=== PATIENT | female | born 1940 | race Caucasian/White ===

== ENCOUNTER → 2017-12-19 09:27 | Outpatient (CLI) | payer MEDICARE, MEDICAID, SELFPAY ==
--- NOTE | 2017-12-19 09:32 | FL_ITS ---
EXAM: Barium swallow/esophagram. INDICATION: Dysphasia ORDERING PHYSICIAN: Dg Kang PATIENT AGE: 77 years COMPARISON: None TECHNIQUE: In the upright position the patient was observed to swallow barium in both the AP and lateral view. The cervical esophagus was examined under fluoroscopy with images obtained. The patient was then placed prone in the right anterior oblique position and was observed to swallow barium with Valsalva technique . FLUOROSCOPY TIME: Fluoroscopy time FINDINGS: There was no evidence of aspiration. There was normal peristalsis. No filling defects or mucosal abnormalities. No masses or strictures. There is posterior indentation upon the cervical esophagus from prominent bridging osteophytes in the lower cervical spine at the C6-C7 level. No evidence of hiatal hernia. IMPRESSION: 1. Posterior dilatation upon the esophagus in the cervical region from overlying cervical osteophytes. 2. Otherwise negative barium swallow
== END ==
PROVIDERS: Family Provider Internal Medicine; PCP Internal Medicine; Visit Provider Internal Medicine
DX: R13.10 Dysphagia, unspecified (principal)
CPT/HCPCS: 74220

== ENCOUNTER → 2018-03-21 08:39 | Outpatient (CLI) | payer MEDICARE, MEDICAID, SELFPAY | PROVIDERS: Visit Provider Internal Medicine | DX: R19.7 Diarrhea, unspecified (principal) | CPT/HCPCS: 87177; 87205 ==

== ENCOUNTER 2018-07-18 12:24 | Outpatient (CLI) | payer MEDICARE, MEDICAID, SELFPAY ==
[2018-07-18] VITALS (7 sets, daily range): BP systolic 145–168; BP diastolic 74–88; PULSE 66–78; RESP 20; TEMP 36.9; O2SAT 95–96; BMI 26.6
[2018-07-18 13:06] LABS: Basophils # 0.1 K/mm3 (0-0.2); Basophils % 1.2 % (0.1-2.0); Eosinophils # 0.1 K/mm3 (0.0-0.4); Eosinophils % 1.2 % (0.1-12.0); Hematocrit 38.6 % (37.0-47.0); Hemoglobin 12.5 g/dL (12.2-16.2); Lymphocytes % 13.3 K/mm3 (10-50); Mean Corpuscular HGB Conc 32.5 g/dL (31.8-35.4); Mean Corpuscular Hemoglobin 29.2 pg (27.0-31.2); Mean Corpuscular Volume 90.1 fl (81-99); Mean Platelet Volume 7.4 fl (7.4-10.4); Monocytes # 0.4 K/mm3 (0.1-1.0); Monocytes % 5.2 % (1.7-9.3); Neutrophils # 6.1 K/mm3 (1.8-7.8); Neutrophils % 78.9 % (37.0-80.0); Platelet Count 250 K/mm3 (142-424); Red Blood Count 4.29 M/mm3 (4.20-5.40); Red Cell Distribution Width 13.5 % (11.5-17.5); White Blood Count 7.7 K/mm3 (4.8-10.8)
[2018-07-18 13:11] LABS: Blood Urea Nitrogen 13 mg/dL (7-18); Calcium 9.2 mg/dL (8.5-10.1); Carbon Dioxide 27 mmol/L (21.0-32.0); Chloride 104 mmol/L (98-107); Creatinine Clearance Estimated 51 mL/min (0-300); Creatinine,Serum 0.78 mg/dL (0.55-1.02); Estimated Glomerular Filt Rate 71 ml/min (>60); GFR (African American) 86 ML/MIN (>60); Glucose 99 mg/dL (74-106); Sodium 140 mmol/L (136-145)
== END 2018-07-18 16:15 | disposition home or self-care (01) ==
LOC: INF 12:26
PROVIDERS: PCP Internal Medicine; Visit Provider Internal Medicine
DX: E86.0 Dehydration (principal); K52.9 Noninfective gastroenteritis and colitis, unspecified
CPT/HCPCS: 80048; 85025; 96360; 96361

== ENCOUNTER → 2018-09-01 16:23 | Outpatient (CLI) | payer MEDICARE, MEDICAID, SELFPAY ==
[2018-09-01 16:48] LABS: Basophils # 0.1 K/mm3 (0-0.2); Eosinophils # 0.1 K/mm3 (0.0-0.4); Eosinophils % 1.1 % (0.1-12.0); Hematocrit 40.1 % (37.0-47.0); Hemoglobin 13.1 g/dL (12.2-16.2); Lymphocytes # 1.4 K/mm3 (0.7-4.5); Lymphocytes % 12.2 % (10-50); Mean Corpuscular HGB Conc 32.6 g/dL (31.8-35.4); Mean Corpuscular Hemoglobin 29.8 pg (27.0-31.2); Mean Corpuscular Volume 91.2 fl (81-99); Mean Platelet Volume 7.7 fl (7.4-10.4); Monocytes # 0.5 K/mm3 (0.1-1.0); Monocytes % 4.1 % (1.7-9.3); Neutrophils # 9.3 K/mm3 (1.8-7.8); Neutrophils % 81.5 % (37.0-80.0); Platelet Count 259 K/mm3 (142-424); Red Cell Distribution Width 14.1 % (11.5-17.5); White Blood Count 11.4 K/mm3 (4.8-10.8)
[2018-09-01 17:44] LABS: Alanine Aminotransferase 32 U/L (12-78); Albumin Level 4.2 gm/dL (3.4-5.0); Albumin/Globulin Ratio 1.4 (1.1-1.8); Alkaline Phosphatase 164 U/L (46-116); Anion Gap 17.5 mEq/L (5-15); Aspartate Amino Transferase 22 U/L (15-37); Bilirubin,Total 0.2 mg/dL (0.2-1.0); Blood Urea Nitrogen 14 mg/dL (7-18); Calcium 9.6 mg/dL (8.5-10.1); Carbon Dioxide 28 mmol/L (21.0-32.0); Chloride 101 mmol/L (98-107); Estimated Glomerular Filt Rate 60 ml/min (>60); GFR (African American) 73 ML/MIN (>60); Globulin 3.1 gm/dl (1.3-3.2); Glucose 99 mg/dL (74-106); Potassium 5.5 mmoL/L (3.5-5.1); Sodium 141 mmol/L (136-145); Total Protein,Serum 7.3 gm/dL (6.4-8.2)
[2018-09-03 10:38] LABS: Vitamin B12 >2000 pg/mL (232-1245)
== END ==
PROVIDERS: Visit Provider Specialist
DX: R25.1 Tremor, unspecified (principal); R29.6 Repeated falls; R51 Headache
CPT/HCPCS: 36415; 80053; 82607; 85025

== ENCOUNTER → 2018-10-09 09:22 | Outpatient (POV) | payer MEDICARE, MEDICAID, SELFPAY | PROVIDERS: Visit Provider Podiatrist | DX: Z00.00 Encounter for general adult medical examination without abnormal findings (principal) ==

== ENCOUNTER → 2018-11-13 08:52 | Outpatient (POV) | payer MEDICARE, MEDICAID, SELFPAY | PROVIDERS: Visit Provider Podiatrist | DX: Z00.00 Encounter for general adult medical examination without abnormal findings (principal) ==

== ENCOUNTER → 2019-01-22 08:54 | Outpatient (POV) | payer MEDICARE, MEDICAID, SELFPAY | PROVIDERS: Visit Provider Podiatrist | DX: Z00.00 Encounter for general adult medical examination without abnormal findings (principal) ==

== ENCOUNTER → 2019-02-21 15:51 | Outpatient (CLI) | payer MEDICARE, MEDICAID, SELFPAY ==
[2019-02-27 06:18] LABS: C difficile Toxins AB, EIA Negative (Negative)
[2019-02-27 20:41] LABS: Fats, Neutral Normal (.); Fats, Total Normal (.)
== END ==
PROVIDERS: PCP Internal Medicine; Visit Provider Internal Medicine
DX: K52.9 Noninfective gastroenteritis and colitis, unspecified (principal)
CPT/HCPCS: 82705; 87045; 87177; 87205; 87324

== ENCOUNTER 2019-05-10 12:25 | Observation (INO) ==
--- NOTE | 2019-05-10 12:29 | Emergency Department Note ---
ED Disposition Clinical Impression: TIA (transient ischemic attack) Disposition: Admitted as Observation Condition on Discharge: Good Referrals: Provider,Referral, [Primary Care Provider] - - Critical Care Critical Care Time: No Attestation: On , the high probability of a clinically significant, sudden or life threatening deterioration of the following system(s) required my full and direct attention, intervention and personal management. The time I documented below is in addition to time spent performing reported procedures but includes the following listed in this critical care notation. Medical Decision Making - [place] Inquiry Pt receiving controlled substance: No Vital Signs: 05/10/19 12:25 05/10/19 13:25 05/10/19 14:00 Pulse Rate [Right Radial] 78 72 68 Respiratory Rate 18 17 18 Blood Pressure [Right Arm] 143/81 H 129/60 133/75 Blood Pressure Mean [Right Arm] 101 83 94 Blood Pressure Source [Right Arm] Automatic Cuff Automatic Cuff Automatic Cuff Blood Pressure Position [Right Arm] Sitting Sitting Sitting 02 Sat by Pulse Oximetry 97 97 96 Oxygen Delivery Method Room Air Room Air Room Air - Lab Data Lab Results 05/10/19 12:32: WBC 7.3, RBC 4.60, Hgb 13.4, Hct 41.7, MCV 90.7, MCH 29.2, MCHC 32.2, RDW 13.8, Plt Count 249, MPV 7.6, Neut % (Auto) 72.6, Lymph % (Auto) 19.6, [place] % (Auto) 5.0, Eos % (Auto) 1.5, Baso % (Auto) 1.2, Neut # (Auto) 5.3, Lymph # (Auto) 1.4, [place] # (Auto) 0.4, Eos # (Auto) 0.1, Baso # (Auto) 0.1 05/10/19 12:32: Sodium 137, Potassium 4.4, Chloride 99, Carbon Dioxide 27, Anion Gap 15.4 H, BUN 15, Creatinine 1.03 H, Estimated Creat Clear 46, Estimated GFR 52 L, Est GFR ( Amer) 62, Glucose 99, Calcium 9.5, Troponin I < 0.02 Result diagrams: 05/10/19 12:32 05/10/19 12:32 Orders (Tests/Meds): ORDERS Category Date Time Status XR chest portable Stat Exams 05/10/19 12:36 Taken 12-lead EKG Request [ECG Request by /Nse] Stat Y 05/10/19 12:26 Ordered - CT Data CT Scan: Head Time Received: 13:[address] Reviewed: Yes: I have viewed the radiologist's interpretation Preliminary Findings: Normal/NAD - ECG Data Tracing #1 EKG interpreted by Isiah Bolivar MD: Rhythm: sinus Rate: 76 Arpin: Left Ectopy: none Conduction: normal ST Segment Changes: none T Wave Changes: none Q Waves: none No evidence of acute ischemia or injury. Poor R wave progression. Low voltage QRS Baseline wander present, but I consider the EKG adequate for accurate interpretation. Prior electrocardiagrams reviewed. No change from prior tracings. - Physician Consults Physician Consulted: Milana Time: 14:00 Reason -: Admission, Pt condition Medical Decision Narrative: Patient does not want to be transferred to [place]. Discussed with Dr. Cortés. He feels she can be worked up as an inpatient or outpatient. If patient feels good and has good support system, can work her up as an outpatient beginning tomorrow. Otherwise admit for observation and further work-up. Ne uroclaudine. Continue low-dose aspirin. Discussed with patient. Patient says that she has a headache on the back of her neck hurts, still lightheaded. Lives alone. She [place] be [place]. General Adult HPI - General Stated complaint: lightheaded, weak feeling, double vision Time Seen by Provider: 05/10/19 12:38 - History of Present Illness HPI narrative: About 11:30 AM the patient was in muslim and began having double vision, which she said came and went. She says she had to cover her right eye so that she could see. She also felt dizzy which she described as a lightheadedness. She says it was not a room spinning type of dizziness. No headache. States she is still lightheaded, but double vision resolved after 20 minutes. She did not have any trouble speaking, no numbness or weakness of the arms or legs. Has not had this in the past. She has an essential tremor and sees Dr. Andersen. She was seen by me in this emergency department last July for multiple falls and had a CT scan at that time. - Related Data Home Medications Medication Instructions Recorded Confirmed Aspirin [Aspir 81] 81 mg PO DAILY 07/18/18 05/10/19 Gabapentin [Gabapentin 300mg Cap] 300 mg PO DAILY 07/18/18 05/10/19 Losartan Potassium 100 mg PO DAILY 07/18/18 05/10/19 Multivitamin [Multivitamins] 1 each PO DAILY 07/18/18 05/10/19 Pantoprazole Sodium [Protonix 40mg 40 mg PO DAILY 07/18/18 05/10/19 tablet] Simvastatin 20 mg PO HS 07/18/18 05/10/19 Primidone 100 mg PO .MORNING 05/10/19 05/10/19 Previous Rx's Medication Instructions Recorded primidone 250 mg tablet 250 mg PO BID 30 Days #60 tab 01/12/19 Allergies Allergy/AdvReac Type Severity Reaction Status Date / Time glucosamine Allergy Unknown BOWELS Verified 03/24/19 14:17 BLEEDING Sulfa (Sulfonamide Allergy Unknown Verified 03/24/19 14:17 Antibiotics) [facility] History - Hepatitis A Screen Attestation statement:: This patient has been screened for Hepatitis A risk factors. I have reviewed the patient's past medical history: Yes Medical History: Reports:: Anxiety, Hyperlipidemia, Hypertension Denies:: Diabetes Mellitus Type 1, Diabetes Mellitus Type 2 Other Medical History: Reports: Arthritis, Other Comment: tremor Other Surgeries: Yes: Other Comment: spine surgery - 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 Smoking Status: Never smoker Alcohol Intake: never Alcohol Intake Frequency:: other Substance Use Type: denies use Occupational Status: retired Housing: house Household Members: none - Psychiatric History Pschychiatric History:: Reports:: Anxiety Family Hx:: No significant family history ROS Obtained: Yes All systems reviewed & no additional complaints - Eyes Eyes: Reports diplopia - Cardiovascular Cardiovascular: Denies chest pain - Respiratory Respiratory: No dyspnea - Gastrointestinal Gastrointestingal: Denies: nausea, vomiting - Neurologic Neurologic: Reports dizziness, Denies headache(s), Denies numbness, Denies weakness Physical Exam - General General appearance: alert, in no apparent distress - Head Head exam: atraumatic, normocephalic - Eye Eye exam: Present: normal appearance, PERRL, EOMI, nystagmus (Questionable trace of nystagmus on lateral gaze both sides, few beats) - ENT ENT exam: Present: normal exam, normal oropharynx, mucous membranes moist - Neck Neck exam: Present: normal inspection, trachea midline - Chest Chest inspection: Present: normal inspection, symmetric chest wall rise - Respiratory Respiratory exam: Present: normal lung sounds bilaterally. Absent: respiratory distress - Cardiovascular Cardiovascular exam: Present: regular rate, normal rhythm, normal heart sounds - Abdominal Exam Abdominal exam: Present: soft, normal bowel sounds. Absent: distention, tenderness - Extremities Exam Extremities exam: Present: normal inspection - Neurological Exam Neurological exam: Present: alert, oriented X3, CN II-XII intact. Absent: motor sensory deficit - Psychiatric Psychiatric exam: Present: normal affect, normal mood - Skin Skin exam: Present: warm, dry Stroke Alert/NIH Score - LOC Stroke Alert: No Level of Consciousness: Alert LOC Questions: Answers both correctly LOC Commands: Obeys both correctly - Facial/Visual Best Gaze: Normal Visual: No visual loss Facial Palsy: Normal - Motor Motor Response, Left Arm: No drift/Amputation/Fused Motor Response, Right Arm: No drift/Amputation/Fused Motor Response, Left Leg: No drift/Amputation/Fused Motor Response, Right Leg: No drift/Amputation/Fused - Sensory/Language Limb Ataxia: Absent Sensory: Normal Best Language: No aphasia Dysarthria: Normal speech, Intubated or Barrier present - NIH Score Stroke Risk Score: 0
[2019-05-10 12:44] LABS: Basophils # 0.1 K/mm3 (0-0.2); Basophils % 1.2 % (0.1-2.0); Eosinophils # 0.1 K/mm3 (0.0-0.4); Eosinophils % 1.5 % (0.1-12.0); Hematocrit 41.7 % (37.0-47.0); Hemoglobin 13.4 g/dL (12.2-16.2); Lymphocytes # 1.4 K/mm3 (0.7-4.5); Lymphocytes % 19.6 % (10-50); Mean Corpuscular HGB Conc 32.2 g/dL (31.8-35.4); Mean Corpuscular Volume 90.7 fl (81-99); Mean Platelet Volume 7.6 fl (7.4-10.4); Monocytes # 0.4 K/mm3 (0.1-1.0); Neutrophils # 5.3 K/mm3 (1.8-7.8); Neutrophils % 72.6 % (37.0-80.0); Platelet Count 249 K/mm3 (142-424); Red Cell Distribution Width 13.8 % (11.5-17.5); White Blood Count 7.3 K/mm3 (4.8-10.8)
[2019-05-10 12:57] LABS: Anion Gap 15.4 mEq/L (5-15); Blood Urea Nitrogen 15 mg/dL (7-18); Calcium 9.5 mg/dL (8.5-10.1); Carbon Dioxide 27 mmol/L (21.0-32.0); Chloride 99 mmol/L (98-107); Glucose 99 mg/dL (74-106); Sodium 137 mmol/L (136-145)
--- NOTE | 2019-05-10 14:47 | Pharmacy Consult Notes ---
[facility] Pharmacy VTE Monitoring - Patient Demographics Admission date: 05/09/19 Report Date: 05/10/19 Time: 14:46 Allergies/Adverse Reactions: Patient Allergies glucosamine Allergy (Unknown, Verified 03/24/19 14:17) BOWELS BLEEDING Sulfa (Sulfonamide Antibiotics) Allergy (Unknown, Verified 03/24/19 14:17) Height: 1.63 m Weight: 67.812 kg Patient Problems: Current Active Problems TIA (transient ischemic attack) (Acute) - VTE Risk Labs: VTE Related Lab Results Hgb 13.4 g/dL (12.2-16.2) 05/10/19 12:32 Hct 41.7 % (37.0-47.0) 05/10/19 12:32 Plt Count 249 K/mm3 (142-424) 05/10/19 12:32 BUN 15 mg/dL (7-18) 05/10/19 12:32 Creatinine 1.03 mg/dL (0.55-1.02) H 05/10/19 12:32 Estimated Creat Clear 46 mL/min (50-200) 05/10/19 12:32 - Prophylaxis VTE Prophylaxis Ordered?: Yes Types of VTE Prophylaxis: TEDS Knee High Location of Applied Device: Bilateral Lower Extremeties - VTE Diagnosis Confirmed Treatment or plan recommended: Continue Current Treatment
--- NOTE | 2019-05-11 08:54 | History & Physical Report ---
*Admission Date: 05/09/19 *Chief complaint: Diplopia *History of present illness: 79-year-old white female with history of essential tremor, physical debility and hypertension who came to the emergency department with several hours of double vision. She was noted to have resolution of this in the ER and by the time she was evaluated by the ER physician her neurologic exam had returned to baseline. However, given her significant symptoms of diplopia, risk factor issues and age- related debility she was admitted for work-up of this stroke issue. This morning she feels weak but no double vision. [facility] History I have reviewed the patient's past medical history: Yes Medical History: Reports:: Anxiety, Hyperlipidemia, Hypertension Denies:: Cancer, Diabetes Mellitus Type 1, Diabetes Mellitus Type 2, MRSA *Have you ever received a pneumonia vaccine?: Yes *Have you received a flu vaccine this season?: No Other Medical History: Reports: Arthritis, Cataracts, Other Other Surgeries: Yes: Other Amputation: No Fractures: Yes - *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 Educational Level: Completed High School Smoking Status: Never smoker Alcohol Intake: never Alcohol Intake Frequency:: other Substance Use Type: denies use *Occupational Status:: retired Housing: house Household Members: none *Travel in the last 8 weeks: None - Psychiatric History Expresses thoughts of harming self/others: None Suicide Plan Description: No Plan Pschychiatric History:: Reports:: Anxiety Family Hx:: No significant family history, Cancer, Diabetes, Heart Attack, Hyperlipidemia, Hypertension Review of Systems - Review of Systems Review of systems:: pertinent systems reviewed and negative unless documented below - Constitutional Denies anorexia, Denies fatigue, Denies fever(s) - Eyes Reports blurry vision, Reports change in vision, Reports double vision, Denies blind spots - ENT Reports poor balance, Reports dizziness, Denies abnormal hearing - *Cardiovascular Denies chest pain, Denies chest pain at rest, Denies excessive sweating - *Respiratory Denies change in phlegm color, Denies chest congestion - *Gastrointestinal Denies abdominal pain - *Musculoskeletal Reports abnormal walking - Integumentary/Breasts Denies acne, Denies hair loss, Denies change in skin color - *Neurologic Reports dizziness, Reports frequent falls, Reports loss of vision, Reports other visual disturbances, Denies headache(s), Denies numbness, Denies weakness - Psychiatric Denies abnormal sleep pattern Meds Home Medications Medication Instructions Recorded Confirmed Type Aspirin [Aspir 81] 81 mg PO DAILY 07/18/18 05/10/19 History Gabapentin [Gabapentin 300mg Cap] 300 mg PO DAILY 07/18/18 05/10/19 History Multivitamin [Multivitamins] 1 each PO DAILY 07/18/18 05/10/19 History Pantoprazole Sodium [Protonix 40mg 40 mg PO DAILY 07/18/18 05/10/19 History tablet] Simvastatin 20 mg PO HS 07/18/18 05/10/19 History Losartan Potassium 100 mg PO DAILY 05/10/19 05/10/19 History Primidone [Mysoline 250mg tablet] 125 mg PO DAILY 05/10/19 05/10/19 History Primidone [Mysoline 250mg tablet] 250 mg PO HS 05/10/19 05/10/19 History Allergies Allergy/AdvReac Type Severity Reaction Status Date / Time glucosamine Allergy Unknown BOWELS Verified 03/24/19 14:17 BLEEDING Sulfa (Sulfonamide Allergy Unknown Verified 03/24/19 14:17 Antibiotics) Exam Vital signs and Labs for Last 24 Hours: Temp Pulse Resp BP Pulse Ox 97.7 F 75 20 109/61 L 97 05/11/19 04:00 05/11/19 04:00 05/11/19 04:00 05/11/19 04:00 05/11/19 04:00 Laboratory Results - last 24 hr 05/10/19 12:32: WBC 7.3, RBC 4.60, Hgb 13.4, Hct 41.7, MCV 90.7, MCH 29.2, MCHC 32.2, RDW 13.8, Plt Count 249, MPV 7.6, Neut % (Auto) 72.6, Lymph % (Auto) 19.6, [place] % (Auto) 5.0, Eos % (Auto) 1.5, Baso % (Auto) 1.2, Neut # (Auto) 5.3, Lymph # (Auto) 1.4, [place] # (Auto) 0.4, Eos # (Auto) 0.1, Baso # (Auto) 0.1 05/10/19 12:32: Sodium 137, Potassium 4.4, Chloride 99, Carbon Dioxide 27, Anion Gap 15.4 H, BUN 15, Creatinine 1.03 H, Estimated Creat Clear 46, Estimated GFR 52 L, Est GFR ( Amer) 62, Glucose 99, Calcium 9.5, Troponin I < 0.02 I & O for Last 24 hours: Intake & Output 05/08/19 05/09/19 05/10/19 05/11/19 11:59 11:59 11:59 11:59 Intake Total Output Total 2550 / 2550 Balance -2540 / -2540 Weight 149 lb 7 oz Narrative: Patient is pleasant and alert. Has obvious essential tremor in hands and head. Is able to stand with assistance, has significant ataxia with assisted walking. Romberg's testing is strongly positive. Cranial nerves are intact, pupils are equal. Heart rate regular without murmurs. Lungs are clear. No distal edema or perfusion deficits. Oropharynx clear, no JVD. Abdomen soft and nontender. Assessment and Plan (1) TIA (transient ischemic attack) Current visit: Yes Status: Acute Category: Medical Code(s): G45.9 - Transient cerebral ischemic attack, unspecified I am concerned about her risk for impending stroke. Aggressive work-up with Dopplers, echo with bubble study and MRI. I think she would be a good candidate for long-term care for PT/OT evaluation. (2) Multiple falls Current visit: No Status: Acute Category: Medical Code(s): R29.6 - Repeated falls (3) Tremor Current visit: No Status: Chronic Category: Medical Code(s): R25.1 - Tremor, unspecified
--- NOTE | 2019-05-11 17:39 | Electrocardiograph Report ---
APPROVED REPORT Exam: Resting ECG HR:76 bpm ECG Measurements Heart Rate 76 AXES NE 144 P 55 QRSd 82 QRS -36 QT 398 T37 QTc 447 <Conclusion> Normal sinus rhythm Left axis deviation Low voltage QRS Late R-wave progression Abnormal ECG Electronically signed by : Imtiaz Cortés, 05/11/2019 17:38:47
--- NOTE | 2019-05-11 18:16 | Discharge Summary ---
General - General Admission date:: 05/10/19 Discharge date: 05/11/19 HPI HPI: 79-year-old white female with history of essential tremor, physical debility and hypertension who came to the emergency department with several hours of double vision. She was noted to have resolution of this in the ER and by the time she was evaluated by the ER physician her neurologic exam had returned to baseline. However, given her significant symptoms of diplopia, risk factor issues and age- related debility she was admitted for work-up of this stroke issue. This morning she feels weak but no double vision. Hospital Course Hospital Course: Patient was admitted, had no further neurologic deficits. Because of her significant comorbidities with tremor and the possibility of worsening ischemic cerebrovascular disease MRI was done which showed no evidence of recent or chronic or remote stroke. Age-related changes only. Echocardiogram with bubble study and carotid Dopplers were also done, that official report is pending at the time of discharge. Given the lack of further events, and patient's reasonable blood pressure control, it was elected to discharge home. She will continue aspirin therapy, her blood pressure therapy and follow-up with her regular physician, Dr. Kang in the next 4 to 5 days to review the echo and carotid Doppler evaluations. Objective Vital signs: Temp Pulse Resp BP Pulse Ox 98.2 F 77 20 118/71 97 05/11/19 16:00 05/11/19 16:00 05/11/19 16:00 05/11/19 16:00 05/11/19 16:00 Narrative: Please see examination data from this morning. DS: Diagnosis - Discharge Diagnosis (1) TIA (transient ischemic attack) Status: Resolved (2) Multiple falls Status: Chronic (3) Tremor Status: Chronic Discharge Plan - Patient Discharge Instructions ACTIVITY: Continue current activity DIET: continue same diet Patient Instructions: DI for Transient Ischemic Attack - Follow up Plan Follow up with: Dg Kang [Staff Physician] - Disposition: Home, Self-Halfway Medications: Home Medications Medication Instructions Recorded Confirmed Type Aspirin [Aspir 81] 81 mg PO DAILY 07/18/18 05/10/19 History Gabapentin [Gabapentin 300mg Cap] 300 mg PO DAILY 07/18/18 05/10/19 History Multivitamin [Multivitamins] 1 each PO DAILY 07/18/18 05/10/19 History Pantoprazole Sodium [Protonix 40mg 40 mg PO DAILY 07/18/18 05/10/19 History tablet] Simvastatin 20 mg PO HS 07/18/18 05/10/19 History Losartan Potassium 100 mg PO DAILY 05/10/19 05/10/19 History Primidone [Mysoline 250mg tablet] 125 mg PO DAILY 05/10/19 05/10/19 History Primidone [Mysoline 250mg tablet] 250 mg PO HS 05/10/19 05/10/19 History Prescriptions/Medication Reconciliation: Continued Pantoprazole Sodium [Protonix 40mg tablet] 40 mg PO DAILY Multivitamin [Multivitamins] 1 each PO DAILY Gabapentin [Gabapentin 300mg Cap] 300 mg PO DAILY Aspirin [Aspir 81] 81 mg PO DAILY Losartan Potassium 100 mg PO DAILY Primidone [Mysoline 250mg tablet] 250 mg PO HS Primidone [Mysoline 250mg tablet] 125 mg PO DAILY Simvastatin 20 mg PO HS - Problem Reconciliation Problems Reviewed?: Yes
--- NOTE | 2019-05-12 09:32 | Cardiology Report ---
APPROVED REPORT Payroll Examiner: GRETEL Laterality: Bilateral Study Quality: Good, Due to TIA. Indications: TIA, Dizziness and Vertigo, CVA/TIA: , Carotid stenosis Risk Factors Hypertension: Hyperlipidemia Doppler Spectral Velocity Analysis ECA (R) 82.50/ cm/sECA (L) 61.30/ cm/s dICA (R) 114.00/33.80 cm/sdICA (L) 117.00/33.80 cm/s Hillary (R) 82.50/25.10 cm/smICA (L) 87.20/26.70 cm/s pICA (R) 57.40/18.90 cm/spICA (L) 72.30/20.40 cm/s dCCA (R) 69.90/23.60 cm/sdCCA (L) 76.20/24.40 cm/s pCCA (R) 62.10/20.40 cm/spCCA (L) 75.40/18.90 cm/s Vert (R) 31.40/ cm/sVert (L) 25.90/ cm/s ICA/CCA 1.80 ICA/CCA 1.60 Conclusion Duplex evaluation demonstrates stenosis of the right proximal internal carotid artery <20% with PSV <140 cm/sec, EDV <100 cm/sec, and IC/CC Ratio <4.0.Duplex evaluation demonstrates stenosis of the left proximal internal carotid artery in the range of 20-49% with PSV <140 cm/sec, EDV <100 cm/sec, and IC/CC Ratio <4.0. Antegrade flow seen bilateral vertebral arteries. Electronically signed by : Miguel Martinez MD 05/12/2019 09:31:55
--- NOTE | 2019-05-14 15:57 | Cardiology Report ---
[facility] RADIOLOGICAL CONSULTATION Patient Name : KEVIN MONCADA X-RAY # : [id number] Physician: MARIA VICTORIA HOOD AGE: 79Y : 1940 00:00:00 ( F ) Exam : CA ECHO DOPPLER COMPLETE ACC # : [id number] Study Date : 05/11/2019 10:20:23 Patient Class : I FINAL REPORT CLINICAL DATA: FINDINGS: IMPRESSION: Dictated by Carolee Judd at 05/13/2019 12:52:13 PM Transcribed by at
== END 2019-05-11 18:37 | disposition home or self-care (01) ==
LOC: 2ND 12:25 → ER 12:25 → 2ND 14:37
PROVIDERS: ADMIT Internal Medicine Adolescent Medicine; ATTEND Internal Medicine Adolescent Medicine
CPT/HCPCS: 70450; 70551; 71010; 71045; 80048; 84484; 85025; 93005; 93306; 93880; 97110; 97116; 97161; 97166; 99284; G0378

== ENCOUNTER → 2020-02-11 15:21 | Outpatient (CLI) | payer MEDICARE, MEDICAID, SELFPAY ==
--- NOTE | 2020-02-11 15:29 | XR_ITS ---
PROCEDURE: XR FOOT WT BEARING LT 3V CLINICAL INDICATION: bunion Foot pain COMPARISON: No exams were available for comparison FINDINGS: No fracture or dislocation. No lytic or blastic change. There is normal mineralization. There is mild hallux valgus with hypertrophic change at the distal aspect of the 1st metatarsal and mild osteoarthritic change of the 1st MTP joint. Osteoarthritic changes are present at the talonavicular joint with dorsal hypertrophy at that joint. Osteoarthritic changes are also present at the navicular cuneiform joint. There is pes planus. Other findings:None. IMPRESSION: Hallux valgus with osteoarthritis and bunion formation at the 1st MTP joint with pes planus and osteoarthritic changes of the midfoot Dictated by: Miguel Martinez MD 02/11/2020 15:59 Electronically signed by Miguel Martinez MD in [place] 02/11/2020 15:59
--- NOTE | 2020-02-11 15:29 | XR_ITS ---
PROCEDURE: XR FOOT WT BEARING RT 3V CLINICAL INDICATION: bunion Pain COMPARISON: No exams were available for comparison FINDINGS: No fracture or dislocation. No lytic or blastic change. There is normal mineralization. There is moderate hallux valgus with osteoarthritis of the 1st MTP joint and bunion formation with bony hypertrophy at the distal aspect of the 1st metatarsal with sub chondral cystic changes at the distal aspect of the 1st metatarsal.. There are are also osteoarthritic changes at the tarsometatarsal junction of 1 through 5 and at the navicular cuneiform joint with cystic changes involving the navicular the with borderline pes planus. Other findings:None. IMPRESSION: Hallux valgus with osteoarthritis of the 1st MTP joint and bunion formation with cystic changes at the distal 1st MTP Osteoarthritis of the tarsometatarsal junction with cystic changes of the navicular Dictated by: Miguel Martinez MD 02/11/2020 16:00 Electronically signed by Miguel Martinez MD in [place] 02/11/2020 16:00
== END ==
PROVIDERS: PCP Internal Medicine; Visit Provider Podiatrist
DX: M21.611 Bunion of right foot (principal); M21.612 Bunion of left foot
CPT/HCPCS: 73630

== ENCOUNTER → 2020-03-23 09:29 | Outpatient (CLI) | payer MEDICARE, MEDICAID, SELFPAY ==
--- NOTE | 2020-03-23 09:29 | XR_ITS ---
PROCEDURE: XR DEXA AXIAL SKELETON CLINICAL HISTORY: osteoporosis COMPARISON: No exams were available for comparison FINDINGS: Left forearm 1/3 density is 0.564 with a t-score of -2.2. Right hip neck density is 0.754 with a t-score of -0.9. Left hip total density is 0.843 with a t-score of -0.8. IMPRESSION: Osteopenia with moderate fracture risk. This patient is considered osteopenic according to the World Health Organization criteria. Bone density is between 10 and 25 percent below young normal . Fracture risk is moderate. Treatment is advised. Based on these results of follow-up exam is recommended in 2 years Dictated by: Miguel Martinez MD 03/23/2020 23:09 Electronically signed by Miguel Martinez MD in [place] 03/23/2020 23:09
== END ==
PROVIDERS: PCP Internal Medicine; Visit Provider Podiatrist
DX: M81.0 Age-related osteoporosis without current pathological fracture (principal)
CPT/HCPCS: 77080

== ENCOUNTER 2020-04-12 11:25 | Emergency (ER) | payer OTHER, MEDICARE, MEDICAID, SELFPAY ==
[2020-04-12 11:26] VITALS: BP 91/74; PULSE 84; RESP 18; TEMP 36.6; O2SAT 96; BMI 27.1
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
[2020-04-12 11:39] VITALS: BP 127/78; PULSE 82; O2SAT 95
--- NOTE | 2020-04-12 11:53 | ECG_ITS ---
APPROVED REPORT Exam: Resting ECG HR:80 bpm ECG Measurements Heart Rate 80 AXES AR 142 P 62 QRSd 80 QRS -33 QT 390 T 25 QTc 449 <Conclusion> Normal sinus rhythm Left axis deviation Low voltage QRS Septal infarct, age undetermined Abnormal ECG Electronically signed by : Imtiaz Cortés, 04/16/2020 08:12:53
--- NOTE | 2020-04-12 12:27 | PC.NURSE ---
Pt with rad.
[2020-04-12 13:16] VITALS: BP 155/78; PULSE 78; RESP 16; O2SAT 97
[2020-04-12 14:14] VITALS: BP 160/88; PULSE 78; O2SAT 96
[2020-04-12 14:31] VITALS: BP 160/85; PULSE 79; O2SAT 97
[2020-04-12 14:41] VITALS: BP 160/87; PULSE 75; RESP 16; TEMP 36.8; O2SAT 98
== END 2020-04-12 14:42 | disposition home or self-care (01) ==
PROVIDERS: Emergency Provider Emergency Medicine
DX: S16.1XXA Strain of muscle, fascia and tendon at neck level, initial encounter (principal); V49.3XXA Car occupant (driver) (passenger) injured in unspecified nontraffic accident, initial encounter; Y92.414 Local residential or business street as the place of occurrence of the external cause
CPT/HCPCS: 70450; 71045; 72125; 93005; 99283

== ENCOUNTER 2020-05-09 20:56 | Emergency (ER) | payer MEDICARE, MEDICAID, SELFPAY ==
[2020-05-09 21:05] VITALS: BP 183/81; PULSE 89; RESP 16; TEMP 37.2; O2SAT 97; BMI 26.2
[2020-05-09 21:08] VITALS: BMI 26.4
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
[2020-05-09 21:16] LABS: Basophils # 0.1 K/mm3 (0-0.2); Basophils % 1.1 % (0.1-2.0); Eosinophils # 0.2 K/mm3 (0.0-0.4); Eosinophils % 2.2 % (0.1-12.0); Hematocrit 36.6 % (37.0-47.0); Hemoglobin 12.8 g/dL (12.2-16.2); Lymphocytes # 1.6 K/mm3 (0.7-4.5); Lymphocytes % 14.8 % (10-50); Mean Corpuscular Hemoglobin 30.8 pg (27.0-31.2); Mean Corpuscular Volume 87.9 fl (81-99); Mean Platelet Volume 7.9 fl (7.4-10.4); Monocytes # 0.6 K/mm3 (0.1-1.0); Monocytes % 5.3 % (1.7-9.3); Neutrophils % 76.6 % (37.0-80.0); Platelet Count 249 K/mm3 (142-424); Red Blood Count 4.16 M/mm3 (4.20-5.40); Red Cell Distribution Width 13.9 % (11.5-17.5); White Blood Count 10.4 K/mm3 (4.8-10.8)
[2020-05-09 21:21] LABS: Chloride 104 mmol/L (98-107); Potassium 4.3 mmoL/L (3.5-5.1); Sodium 139 mmol/L (136-145)
[2020-05-09 21:23] LABS: Blood Urea Nitrogen 25 mg/dl (7-17); Creatinine Clearance Estimated 49 mL/min (50-200); Estimated Glomerular Filt Rate 69 ml/min (>60); GFR (African American) 83 ML/MIN (>60)
[2020-05-09 21:24] LABS: Alanine Aminotransferase 29 U/L (12-78); Albumin Level 4.2 g/dl (3.5-5.0); Albumin/Globulin Ratio 1.4 (1.1-1.8); Alkaline Phosphatase 150 U/L (38-126); Anion Gap 14.3 mEq/L (5-15); Aspartate Amino Transferase 31 U/L (14-36); Bilirubin,Total 0.2 mg/dl (0.2-1.3); Calcium 9.7 mg/dl (8.4-10.2); Carbon Dioxide 25 mmol/L (22.0-30.0); Glucose 112 mg/dl (74-100); Total Protein,Serum 7.2 g/dl (6.3-8.2)
[2020-05-09 22:02] VITALS: BP 167/92; PULSE 84; RESP 18; O2SAT 97
--- NOTE | 2020-05-09 22:17 | HMH.EDFALL ---
ED Disposition Clinical Impression: Fall Hematoma of frontal scalp Qualifiers: Encounter type: initial encounter Qualified Code(s): S00.03XA - Contusion of scalp, initial encounter Concussion without loss of consciousness Qualifiers: Encounter type: initial encounter Qualified Code(s): S06.0X0A - Concussion without loss of consciousness, initial encounter Disposition: Home, Self-Care Condition on Discharge: Good Instructions: DI for Concussion Additional Instructions: see pcp for follow up Referrals: Dg Kang [Primary Care Provider] - - Critical Care Critical Care Time: No Attestation: On 05/09/20, the high probability of a clinically significant, sudden or life threatening deterioration of the following system(s) required my full and direct attention, intervention and personal management. The time I documented below is in addition to time spent performing reported procedures but includes the following listed in this critical care notation. Medical Decision Making - Medical Records Medical records reviewed: Yes: I reviewed the patient's medical records. - Dano Inquiry Pt receiving controlled substance: No Vital Signs: 05/09/20 21:05 05/09/20 22:02 05/09/20 22:34 Temperature 99.0 F Temperature Source Oral Pulse Rate [Right Brachial] 89 84 82 Respiratory Rate 16 18 17 Blood Pressure [Right Arm] 183/81 H 167/92 H 160/84 H Blood Pressure Mean [Right Arm] 115 117 109 Blood Pressure Source [Right Arm] Automatic Cuff Automatic Cuff Automatic Cuff Blood Pressure Position [Right Arm] Sitting Sitting Sitting 02 Sat by Pulse Oximetry 97 97 96 Oxygen Delivery Method Room Air - Lab Data Lab results reviewed: Yes: I reviewed the patient's lab results. Lab Results 05/09/20 21:10: WBC 10.4, RBC 4.16 L, Hgb 12.8, Hct 36.6 L, MCV 87.9, MCH 30.8, MCHC 35.0, RDW 13.9, Plt Count 249, MPV 7.9, Neut % (Auto) 76.6, Lymph % (Auto) 14.8, [place] % (Auto) 5.3, Eos % (Auto) 2.2, Baso % (Auto) 1.1, Neut # (Auto) 8.0 H, Lymph # (Auto) 1.6, [place] # (Auto) 0.6, Eos # (Auto) 0.2, Baso # (Auto) 0.1 05/09/20 21:10: Sodium 139, Potassium 4.3, Chloride 104, Carbon Dioxide 25, Anion Gap 14.3, BUN 25 H, Creatinine 0.80, Estimated Creat Clear 49, Estimated GFR 69, Est GFR ( Amer) 83, Glucose 112 H, Calcium 9.7, Total Bilirubin 0.2, AST 31, ALT 29, Alkaline Phosphatase 150 H, Total Protein 7.2, Albumin 4.2, Globulin 3.0, Albumin/Globulin Ratio 1.4 Result diagrams: 05/09/20 21:10 05/09/20 21:10 Orders (Tests/Meds): ORDERS Category Date Time Status CT cervical spine wo con Stat Cat Scan 05/09/20 21:[address] head/brain wo con Stat Cat Scan 05/09/20 21:08 Taken XR chest AP Stat Exams 05/09/20 21:08 Taken XR pelvis 1-2V Stat Exams 05/09/20 21:08 Taken - Radiology Data #1 Image(s): Chest, Pelvis Image Reviewed: Yes I reviewed the patient's radiology image Preliminary Findings: No Fracture Seen - CT Data CT Scan: Head, C-Spine Time Received: 22:[address] Reviewed: Yes: I have viewed the radiologist's interpretation Preliminary Findings: Abnormal (see report ) - Physician Consults Physician Consulted: kailee Reason -: Pt condition Fall HPI - General Chief Complaint: Fall Stated Complaint: AO 05/09 @ 1900, injury to head Time Seen by Provider: 05/09/20 21:15 Mode of Arrival: Wheelchair Source of Information: Patient, Medical Record Limitations: No Limitations Description of Symptoms (Recalled from ER Triage Doc. by RN): Patient reports around 1800 tonight she was moving the mower back into the building when she tripped over the door stop and hit her head on the concrete. Patient denies any loss of conciousness or any pain other than her head. - History of Present Illness HPI Narrative: tripped and hit head with enlarging rt frontal heatoma - no loc and no focal neuro sx MD complaint: fall Onset (ago): hour(s) Fall from: standing Fall witnessed: no Place fall occurred: home Loss
[2020-05-09 22:34] VITALS: BP 160/84; PULSE 82; RESP 17; O2SAT 96
[2020-05-09 22:56] VITALS: BP 160/84; PULSE 77; RESP 18; TEMP 37.2; O2SAT 98
== END 2020-05-09 23:00 | disposition home or self-care (01) ==
PROVIDERS: Emergency Provider Emergency Medicine; PCP Internal Medicine
DX: S06.0X0A Concussion without loss of consciousness, initial encounter (principal); W01.0XXA Fall on same level from slipping, tripping and stumbling without subsequent striking against object, initial encounter; Y92.015 Private garage of single-family (private) house as the place of occurrence of the external cause; Z88.0 Allergy status to penicillin; E78.5 Hyperlipidemia, unspecified; I10 Essential (primary) hypertension; Z88.2 Allergy status to sulfonamides
CPT/HCPCS: 70450; 71045; 72125; 72170; 80053; 85025; 99283

== ENCOUNTER 2020-07-21 13:58 | Emergency (ER) | payer MEDICARE, MEDICAID, SELFPAY ==
[2020-07-21 13:59] VITALS: BP 145/77; PULSE 94; RESP 16; TEMP 36.8; O2SAT 98; BMI 27.1
[2020-07-21 14:10] VITALS: BP 145/77; PULSE 94; RESP 16; TEMP 36.8; O2SAT 98; BMI 26.9
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
[2020-07-21 15:20] VITALS: BP 145/77; PULSE 94; RESP 16; TEMP 36.8; O2SAT 98
== END 2020-07-21 15:25 | disposition home or self-care (01) ==
PROVIDERS: Emergency Provider Nurse Practitioner Family; PCP Internal Medicine
DX: M79.672 Pain in left foot (principal); E78.5 Hyperlipidemia, unspecified; F41.9 Anxiety disorder, unspecified; Z88.0 Allergy status to penicillin; Z79.899 Other long term (current) drug therapy
CPT/HCPCS: G0463; 73630; 99201

== ENCOUNTER → 2021-08-23 11:39 | Outpatient (CLI) | payer MEDICARE, MEDICAID, SELFPAY ==
--- NOTE | 2021-08-23 11:45 | XR_ITS ---
PROCEDURE: XR CHEST 2V CLINICAL HISTORY: CHRONIC COUGH, WHEEZING COMPARISON: CR XR CHEST PORTABLE from 05/10/2019 CR XR CHEST AP from 05/09/2020 FINDINGS: The cardiomediastinal silhouette and pulmonary vascularity are within normal limits. No lobar consolidation or collapse. Small nodular opacity noted in the right upper lung zone laterally and may be due to granuloma not significantly changed. Degenerative changes thoracic spine with mild kyphosis of the lower thoracic spine with mild wedging T12 and T11 which may be chronic. Inter pedicular screws are present at L1, L2, and L3 and L4 but not are not completely imaged at L4 degenerative changes of the shoulders. The IMPRESSION: No acute findings. Dictated by: Miguel Martinez MD 08/23/2021 12:35 Miguel Martinez MD in [facility] 08/23/2021 12:35
== END ==
PROVIDERS: PCP Internal Medicine; Visit Provider Internal Medicine
DX: R05.3 Chronic cough (principal); R06.2 Wheezing
CPT/HCPCS: 71046

== ENCOUNTER → 2021-08-24 10:49 | Outpatient (POV) | payer MEDICARE, MEDICAID, SELFPAY | PROVIDERS: Visit Provider Audiologist | DX: Z00.00 Encounter for general adult medical examination without abnormal findings (principal) ==

== ENCOUNTER → 2021-08-29 09:27 | Outpatient (CLI) | payer MEDICARE, MEDICAID, SELFPAY ==
[2021-08-29 09:55] VITALS: PULSE 74; PULSE 79
== END ==
PROVIDERS: PCP Internal Medicine; Visit Provider Internal Medicine
DX: R06.02 Shortness of breath (principal); R06.2 Wheezing; R05.9 Cough, unspecified
CPT/HCPCS: 94060; 94640

== ENCOUNTER → 2021-12-06 12:21 | Outpatient (CLI) | payer MEDICARE, MEDICAID, SELFPAY ==
[2021-12-06 13:19] LABS: Basophils # 0.1 K/mm3 (0-0.2); Basophils % 1.9 % (0.1-2.0); Eosinophils # 0.3 K/mm3 (0.0-0.4); Eosinophils % 4.8 % (0.1-12.0); Hematocrit 40.9 % (37.0-47.0); Hemoglobin 12.9 g/dL (12.2-16.2); Lymphocytes # 1.2 K/mm3 (0.7-4.5); Lymphocytes % 18.4 % (10-50); Mean Corpuscular HGB Conc 31.7 g/dL (31.8-35.4); Mean Corpuscular Hemoglobin 29.9 pg (27.0-31.2); Mean Corpuscular Volume 94.3 fl (81-99); Monocytes # 0.4 K/mm3 (0.1-1.0); Monocytes % 6.3 % (1.7-9.3); Neutrophils # 4.6 K/mm3 (1.8-7.8); Neutrophils % 68.6 % (37.0-80.0); Platelet Count 272 K/mm3 (142-424); Red Blood Count 4.33 M/mm3 (4.20-5.40); Red Cell Distribution Width 14.2 % (11.5-17.5); White Blood Count 6.7 K/mm3 (4.8-10.8)
[2021-12-06 14:04] LABS: Alanine Aminotransferase 24 U/L (12-78); Albumin Level 4.3 g/dl (3.5-5.0); Alkaline Phosphatase 124 U/L (38-126); Anion Gap 12.7 mEq/L (5-15); Aspartate Amino Transferase 34 U/L (14-36); Bilirubin,Total 0.5 mg/dl (0.2-1.3); Blood Urea Nitrogen 19 mg/dl (7-17); Calcium 9.3 mg/dl (8.4-10.2); Carbon Dioxide 30 mmol/L (22.0-30.0); Chloride 98 mmol/L (98-107); Chol/HDL Ratio 3.3 (1-3.5); Cholesterol 176 mg/dl (140-200); Estimated Glomerular Filt Rate 69 ml/min (>60); GFR (African American) 83 ML/MIN (>60); Globulin 2.2 g/dL (1.3-3.2); Glucose 91 mg/dl (74-100); HDL Cholesterol 53 mg/dl (40-60); Potassium 5.7 mmoL/L (3.5-5.1); Sodium 135 mmol/L (136-145); Total Protein,Serum 6.5 g/dl (6.3-8.2); Triglycerides 131 mg/dl (30-150); VLDL Cholesterol 26 mg/dL (0-40)
[2021-12-06 15:22] LABS: Direct LDL Cholesterol 94.46 mg/dL (100-129)
== END ==
PROVIDERS: Visit Provider Internal Medicine
DX: I10 Essential (primary) hypertension (principal); N18.9 Chronic kidney disease, unspecified; R25.1 Tremor, unspecified; E78.5 Hyperlipidemia, unspecified
CPT/HCPCS: 80053; 80061; 80184; 85025

== ENCOUNTER → 2022-07-02 16:11 | Outpatient (CLI) | payer MEDICARE, MEDICAID, SELFPAY ==
[2022-07-02 17:15] LABS: Basophils # 0.2 K/mm3 (0-0.2); Basophils % 2.3 % (0.1-2.0); Eosinophils # 0.4 K/mm3 (0.0-0.4); Eosinophils % 5.9 % (0.1-12.0); Hematocrit 40.1 % (37.0-47.0); Hemoglobin 12.9 g/dL (12.2-16.2); Lymphocytes # 1.1 K/mm3 (0.7-4.5); Lymphocytes % 15.9 % (10-50); Mean Corpuscular HGB Conc 32.2 g/dL (31.8-35.4); Mean Corpuscular Hemoglobin 30.4 pg (27.0-31.2); Mean Corpuscular Volume 94.5 fl (81-99); Mean Platelet Volume 9.4 fl (7.4-10.4); Monocytes # 0.5 K/mm3 (0.1-1.0); Neutrophils # 4.6 K/mm3 (1.8-7.8); Neutrophils % 68.9 % (37.0-80.0); Platelet Count 273 K/mm3 (142-424); Red Blood Count 4.24 M/mm3 (4.20-5.40); Red Cell Distribution Width 13.9 % (11.5-17.5); White Blood Count 6.6 K/mm3 (4.8-10.8)
[2022-07-02 17:36] LABS: Alanine Aminotransferase 20 U/L (12-78); Albumin Level 4.2 g/dl (3.5-5.0); Albumin/Globulin Ratio 1.8 (1.1-1.8); Alkaline Phosphatase 151 U/L (38-126); Anion Gap 17.3 mEq/L (5-15); Aspartate Amino Transferase 35 U/L (14-36); Bilirubin,Total 0.3 mg/dl (0.2-1.3); Blood Urea Nitrogen 13 mg/dl (7-17); Calcium 9.2 mg/dl (8.4-10.2); Carbon Dioxide 26 mmol/L (22.0-30.0); Chloride 98 mmol/L (98-107); Chol/HDL Ratio 3.8 (1-3.5); Cholesterol 158 mg/dl (140-200); Estimated Glomerular Filt Rate 60 ml/min (>60); GFR (African American) 72 ML/MIN (>60); Globulin 2.3 g/dL (1.3-3.2); Glucose 68 mg/dl (74-100); HDL Cholesterol 42 mg/dl (40-60); Potassium 5.3 mmoL/L (3.5-5.1); Sodium 136 mmol/L (136-145); Total Protein,Serum 6.5 g/dl (6.3-8.2); Triglycerides 219 mg/dl (30-150); VLDL Cholesterol 44 mg/dL (0-40)
[2022-07-02 17:47] LABS: Direct LDL Cholesterol 78.49 mg/dL (100-129)
== END ==
PROVIDERS: PCP Internal Medicine; Visit Provider Internal Medicine
DX: I10 Essential (primary) hypertension (principal); R25.1 Tremor, unspecified; N18.30 Chronic kidney disease, stage 3 unspecified; J45.998 Other asthma
CPT/HCPCS: 80053; 80061; 80184; 85025

== ENCOUNTER → 2022-12-31 12:47 | Outpatient (CLI) | payer MEDICARE, MEDICAID, SELFPAY ==
[2022-12-31 15:22] LABS: Basophils # 0.1 K/mm3 (0-0.2); Basophils % 0.8 % (0.1-2.0); Eosinophils # 0.2 K/mm3 (0.0-0.4); Hemoglobin 13.1 g/dL (12.2-16.2); Lymphocytes % 11.3 % (10-50); Mean Corpuscular HGB Conc 32.7 g/dL (31.8-35.4); Mean Corpuscular Volume 91.9 fl (81-99); Mean Platelet Volume 8.7 fl (7.4-10.4); Monocytes # 0.6 K/mm3 (0.1-1.0); Monocytes % 6.4 % (1.7-9.3); Neutrophils % 79.5 % (37.0-80.0); Platelet Count 270 K/mm3 (142-424); Red Blood Count 4.36 M/mm3 (4.20-5.40); Red Cell Distribution Width 13.9 % (11.5-17.5); White Blood Count 8.8 K/mm3 (4.8-10.8)
[2022-12-31 16:35] LABS: Chloride 98 mmol/L (98-107); Potassium 4.4 mmoL/L (3.5-5.1); Sodium 136 mmol/L (136-145)
[2022-12-31 16:38] LABS: Alanine Aminotransferase 19 U/L (12-78); Albumin Level 4.1 g/dl (3.5-5.0); Albumin/Globulin Ratio 1.8 (1.1-1.8); Alkaline Phosphatase 145 U/L (38-126); Anion Gap 13.4 mEq/L (5-15); Aspartate Amino Transferase 27 U/L (14-36); Bilirubin,Total 0.4 mg/dl (0.2-1.3); Blood Urea Nitrogen 15 mg/dl (7-17); Carbon Dioxide 29 mmol/L (22.0-30.0); Cholesterol 146 mg/dl (140-200); Estimated Glomerular Filt Rate 69 ml/min (>60); GFR (African American) 83 ML/MIN (>60); Globulin 2.3 g/dL (1.3-3.2); Total Protein,Serum 6.4 g/dl (6.3-8.2); Triglycerides 144 mg/dl (30-150); VLDL Cholesterol 29 mg/dL (0-40)
[2022-12-31 16:39] LABS: Chol/HDL Ratio 3.5 (1-3.5); Glucose 86 mg/dl (74-100); HDL Cholesterol 42 mg/dl (40-60)
[2022-12-31 16:49] LABS: Direct LDL Cholesterol 84.14 mg/dL (100-129)
== END ==
PROVIDERS: PCP Internal Medicine; Visit Provider Internal Medicine
DX: I10 Essential (primary) hypertension (principal); R25.1 Tremor, unspecified; E78.5 Hyperlipidemia, unspecified
CPT/HCPCS: 80053; 80061; 85025

== ENCOUNTER 2023-01-10 15:21 | Emergency (ER) | payer MEDICARE, MEDICAID, SELFPAY ==
[2023-01-10] VITALS (7 sets, daily range): BP systolic 130–155; BP diastolic 69–77; PULSE 62–81; RESP 16–17; TEMP 36.6; O2SAT 96–98; BMI 28.0
--- NOTE | 2023-01-10 16:13 | HMH.EDGENADL ---
Discharge Plan Disposition Patient Disposition: Home, Self-Care Prescriptions Prescriptions: New azithromycin 250 mg tablet See Rx Instructions .ROUTE .COMPLEX Qty: 6 0RF Rx Instructions: For 250 mg dose pack: take 500 mg today (day 1), then 250 mg for 4 days (days 2-5) cefdinir 300 mg capsule 300 mg PO BID 10 Days Qty: 20 0RF No Action propranolol 40 mg tablet 40 mg PO BID Label Comments: TAKE ONE TABLET BY MOUTH TWICE DAILY FOR tremor primidone 250 mg tablet 250 mg PO HS Label Comments: TAKE ONE TABLET BY MOUTH EVERY DAY AT BEDTIME pantoprazole 40 mg tablet,delayed release (DR/EC) 40 mg PO POSTTR Label Comments: TAKE ONE TABLET BY MOUTH EVERY DAY simvastatin 20 mg tablet 20 mg PO HS Label Comments: TAKE ONE TABLET BY MOUTH EVERY DAY AT BEDTIME gabapentin 300 mg capsule 300 mg PO HS Label Comments: TAKE ONE CAPSULE BY MOUTH EVERY DAY AT BEDTIME FOR LEG cramps levalbuterol HCl 1.25 mg/3 mL solution for nebulization 1.25 mg INHALATION TIDP PRN (Reason: Asthma) Label Comments: INHALE THE CONTENTS OF 1 VIAL VIA NEBULIZER THREE TIMES DAILY NEEDED FOR asthma losartan 100 mg tablet 100 mg PO DAILY Label Comments: TAKE ONE TABLET BY MOUTH EVERY DAY memantine 10 mg tablet 10 mg PO BID Label Comments: TAKE ONE TABLET BY MOUTH TWICE DAILY Referrals Follow up/Referrals: Dg Kang MD [Primary Care Provider] - See instructions Activity Restrictions/Add. Instructions Additional Instructions/Restrictions: Your CT and CTA of your head and neck today did not reveal any abnormalities. If you develop any worsening balance coordination or vision issues please return to the emergency department. Your CT scan of your upper lungs which were visualized on your cervical spine CT as well as her chest x-ray demonstrated reticulonodular opacities concerning for pneumonia. Return to the emergency part with worsening shortness of breath. Clinical Impressions Clinical Impression: Headache, Dizziness, CAP (community acquired pneumonia) Discharge ED Provider: Renée Adams General Adult HPI General Chief complaint: Weakness Stated complaint: weakness,dizzy, back of head hurts Time Seen by Provider: 01/10/23 16:13 Mode of Arrival: Wheelchair Source of Information: Patient Limitations: No Limitations Description of Symptoms (Recalled from ER Triage Doc. by RN): 82 F presents from home with her daughter who brings her in for evaluation of feeling funny in the back of her head, and feels more unstable while walking today. Patient has a baseline tremor and weakness which she uses a walker for PRN. Patient and daughter concerned for possible stroke. No focal neuro deficit on exam. NIH 0, GCS 15, A/O x3 History of Present Illness HPI narrative: 82-year-old female with a history of resting tremor presents today with posterior head pain and dizziness. She states that her head pain and her dizziness began around the same time but she is unsure exactly when this began but it is most likely sometime yesterday. She states that the posterior aspect of her head is just uncomfortable but she does not have a specific description other than it being slight discomfort. States the pain is not severe. States that every time she tries to move she is severely dizzy. She has been unable to walk how she normally walks was was with a cane. She does have a walker at home and is able to bear weight and hold herself up but is having significant difficulty with this. Her daughter accompanied her to the emergency department today. Denies any other neurologic symptom Related Data Home Medications Medication Instructions Recorded Confirmed gabapentin 300 mg capsule 300 mg PO HS RLS 01/10/23 01/10/23 levalbuterol HCl 1.25 mg/3 mL 1.25 mg inhalation TIDP PRN Asthma 01/10/23 01/10/23 solution for nebulization losartan 100 mg tablet 100 mg
--- NOTE | 2023-01-10 16:13 | PC.NURSE ---
Dr. Adams at [facility]
--- NOTE | 2023-01-10 16:22 | CT_ITS ---
PROCEDURE INFORMATION: Exam: CT Head Without Contrast Exam date and time: 01/10/2023 5:18 PM Age: 82 years old Clinical indication: Pain; Headache; Additional info: Posterior CATES with ataxia TECHNIQUE: Imaging protocol: Computed tomography of the head without contrast. Radiation optimization: All CT scans at this facility use at least one of these dose optimization techniques: automated exposure control; mA and/or kV adjustment per patient size (includes targeted exams where dose is matched to clinical indication); or iterative reconstruction. REPORTING DATA: Count of CT and Cardiac NM exams in prior 12 months: This patient has received 0 known CTs and 0 known cardiac nuclear medicine studies in the 12 months prior to the current study. COMPARISON: CT HEAD/BRAIN WO CON 05/09/2020 9:23 PM FINDINGS: Brain: No intracranial hemorrhages. 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 Mild low-density scattered in the white matter both cerebral hemispheres has no mass effect. No other intra-axial or extra-axial lesions or masses. No midline shift. Cerebral ventricles: No ventriculomegaly. Paranasal sinuses: Visualized sinuses are well aerated. No fluid levels. Mastoid air cells: Visualized mastoid air cells are well aerated. Bones/joints: No acute fracture or bone lesions. Soft tissues: No abnormalities. IMPRESSION: 1. No acute intracranial abnormalities. 2. [id number] white matter microvascular disease and left internal capsule lacunar infarction are unchanged since 05/09/2020.
--- NOTE | 2023-01-10 16:22 | CT_ITS ---
PROCEDURE INFORMATION: Exam: CTA Neck With Contrast Exam date and time: 01/10/2023 5:20 PM Age: 82 years old Clinical indication: Pain; Headache; Additional info: Posterior CATES with ataxia TECHNIQUE: Imaging protocol: Computed tomographic angiography of the neck with contrast. 3D rendering (Not supervised by radiologist): MIP and/or 3D reconstructed images were created by the technologist. Radiation optimization: All CT scans at this facility use at least one of these dose optimization techniques: automated exposure control; mA and/or kV adjustment per patient size (includes targeted exams where dose is matched to clinical indication); or iterative reconstruction. Contrast material: ISOVUE 370; Contrast volume: 100 ml; Contrast route: INTRAVENOUS (IV); REPORTING DATA: Count of CT and Cardiac NM exams in prior 12 months: This patient has received 0 known CTs and 0 known cardiac nuclear medicine studies in the 12 months prior to the current study. COMPARISON: CT CERVICAL SPINE WO CON 05/09/2020 9:23 PM FINDINGS: Right common carotid artery: No stenosis. No dissection or occlusion. Right internal carotid artery: No stenosis of the extracranial segment. No dissection or occlusion. Right external carotid artery: No occlusion or stenosis of the origin. Left common carotid artery: No stenosis. No dissection or occlusion. Left internal carotid artery: No stenosis of the extracranial segment. No dissection or occlusion. Left external carotid artery: No occlusion or stenosis of the origin. Right vertebral artery: Distal right vertebral artery is small and may terminate in the posteroinferior cerebellar artery. Left vertebral artery: No stenosis. No dissection or occlusion. Basilar artery: Distal basilar artery is slightly ectatic with a diameter 3 mm. Right posterior cerebral artery: Right P1 segment is stenotic or hypoplastic, and distal flow predominantly arises from the posterior communicating artery. Left posterior cerebral artery: origin of the left posterior cerebral artery. Soft tissues: Normal. No significant soft tissue swelling. Bones/joints: Posterolateral osteophytes and facet hypertrophy causes bilateral foraminal stenosis at C3-C4, C4-C5, C5-C6 and C6-C7. No acute fractures or focal bone lesions. Joint space narrowing and bone hypertrophy in both temporomandibular joints. IMPRESSION: 1. No stenoses or occlusions. 2. Ectasia of the distal basilar artery. 3. Right vertebral artery may terminate in the posteroinferior cerebellar artery. 4. origin of the left posterior cerebral artery. 5. Bilateral foraminal stenosis in the cervical spine at C3-C4, C4-C5, C5-C6, and C6-C7. REFERENCES: NASCET CRITERIA. The degree of stenosis in the cervical segment of the internal carotid artery is based on NASCET criteria. Normal is no stenosis. Mild is less than 50% stenosis. Moderate is 50-69% stenosis. Severe is 70% to 99% stenosis. Total occlusion is no detectable patent lumen.
--- NOTE | 2023-01-10 16:22 | CT_ITS ---
PROCEDURE INFORMATION: Exam: CTA Head With Contrast, Arteriography Exam date and time: 01/10/2023 5:20 PM Age: 82 years old Clinical indication: Pain; Headache; Additional info: Posterior CATES with ataxia TECHNIQUE: Imaging protocol: Computed tomographic angiography of the head with contrast. Exam focused on the arteries. 3D rendering (Not supervised by radiologist): MIP and/or 3D reconstructed images were created by the technologist. Radiation optimization: All CT scans at this facility use at least one of these dose optimization techniques: automated exposure control; mA and/or kV adjustment per patient size (includes targeted exams where dose is matched to clinical indication); or iterative reconstruction. Contrast material: ISOVUE 370; Contrast volume: 100 ml; Contrast route: INTRAVENOUS (IV); REPORTING DATA: Count of CT and Cardiac NM exams in prior 12 months: This patient has received 0 known CTs and 0 known cardiac nuclear medicine studies in the 12 months prior to the current study. COMPARISON: CT HEAD/BRAIN WO CON 01/10/2023 5:18 PM FINDINGS: ANTERIOR CIRCULATION: Right internal carotid artery: Intracranial segment is patent with no significant stenosis. No aneurysm. Right middle cerebral artery: No occlusion or significant stenosis. No aneurysm. Right anterior cerebral artery: No occlusion or significant stenosis. No aneurysm. Left internal carotid artery: Intracranial segment is patent with no significant stenosis. No aneurysm. Left middle cerebral artery: No occlusion or significant stenosis. No aneurysm. Left anterior cerebral artery: No occlusion or significant stenosis. No aneurysm. POSTERIOR CIRCULATION: Right vertebral artery: The distal right vertebral artery is very small and may terminate in the posteroinferior cerebellar artery. Left vertebral artery: No occlusion or significant stenosis. No aneurysm. Basilar artery: No occlusion or significant stenosis. No aneurysm. Right posterior cerebral artery: No occlusion or significant stenosis. No aneurysm. Left posterior cerebral artery: No occlusion or significant stenosis. No aneurysm. Brain: No definite mass, mass effect, or midline shift. Low-density white matter microvascular disease. Cerebral ventricles: No ventriculomegaly. Bones/joints: No acute fracture. No bone lesions. Soft tissues: No soft tissue masses or lymphadenopathy.. Lungs: Patchy reticulonodular airspace opacities in the right upper lobe. IMPRESSION: 1. No large vessel stenoses or occlusions. 2. Right vertebral artery may terminate in the posteroinferior cerebellar artery. 3. Right upper lobe pneumonia.
--- NOTE | 2023-01-10 16:22 | XR_ITS ---
PROCEDURE INFORMATION: Exam: XR Chest Exam date and time: 01/10/2023 4:48 PM Age: 82 years old Clinical indication: Dyspnea TECHNIQUE: Imaging protocol: Radiologic exam of the chest. Views: 1 view. COMPARISON: CR XR CHEST 2V 08/23/2021 12:06 PM FINDINGS: Lungs: Reticulonodular opacities in the mid and lower right lung are interval change. No confluent airspace consolidation. Pleural spaces: No pleural effusion. No pneumothorax. Heart/Mediastinum: No abnormalities. No cardiomegaly. No pulmonary vascular congestion. Bones/joints: No fractures or bone lesions. IMPRESSION: Right lower lobe pneumonia. Chest x-ray follow-up is recommended within 8 weeks to document resolution.
--- NOTE | 2023-01-10 16:34 | ECG_ITS ---
APPROVED REPORT Exam: Resting ECG HR:66 bpm ECG Measurements Heart Rate 66 AXES AR 141 P 54 QRSd 89 QRS -29 QT 403 T 38 QTc 416 Conclusion SINUS RHYTHM BORDERLINE LEFT AXIS DEVIATION [QRS AXIS < -20] LOW QRS VOLTAGE IN PRECORDIAL LEADS [QRS DEFLECTION < 1.0 mV IN CHEST LEADS] PATTERN CONSISTENT WITH PULMONARY DISEASE ABNORMAL ECG UNCONFIRMED REPORT Electronically signed by : Imtiaz Cortés MD 01/11/2023 14:21:18
[2023-01-10 16:40] LABS: Basophils # 0.1 K/mm3 (0-0.2); Basophils % 1.1 % (0.1-2.0); Eosinophils # 0.2 K/mm3 (0.0-0.4); Eosinophils % 3.1 % (0.1-12.0); Hematocrit 37.9 % (37.0-47.0); Hemoglobin 12.4 g/dL (12.2-16.2); Lymphocytes # 1.3 K/mm3 (0.7-4.5); Lymphocytes % 16.9 % (10-50); Mean Corpuscular HGB Conc 32.6 g/dL (31.8-35.4); Mean Corpuscular Hemoglobin 29.8 pg (27.0-31.2); Mean Corpuscular Volume 91.6 fl (81-99); Mean Platelet Volume 7.6 fl (7.4-10.4); Monocytes # 0.4 K/mm3 (0.1-1.0); Monocytes % 5.2 % (1.7-9.3); Neutrophils # 5.5 K/mm3 (1.8-7.8); Neutrophils % 73.7 % (37.0-80.0); Platelet Count 278 K/mm3 (142-424); Red Blood Count 4.14 M/mm3 (4.20-5.40); Red Cell Distribution Width 13.9 % (11.5-17.5); White Blood Count 7.5 K/mm3 (4.8-10.8)
[2023-01-10 16:47] LABS: Activated Partial Thrombo Time 28.5 seconds (22.8-30.6); INR 0.91 (0.9-1.1); Prothrombin Time 9.9 seconds (10.1-12.5)
[2023-01-10 16:55] LABS: Chloride 100 mmol/L (98-107); Potassium 4.3 mmoL/L (3.5-5.1); Sodium 135 mmol/L (136-145)
[2023-01-10 16:57] LABS: Alanine Aminotransferase 23 U/L (12-78); Alkaline Phosphatase 128 U/L (38-126); Aspartate Amino Transferase 30 U/L (14-36); Bilirubin,Total 0.3 mg/dl (0.2-1.3); Blood Urea Nitrogen 12 mg/dl (7-17); Creatinine Clearance Estimated 48 mL/min (50-200); Estimated Glomerular Filt Rate 69 ml/min (>60); GFR (African American) 83 ML/MIN (>60)
[2023-01-10 16:58] LABS: Albumin Level 3.9 g/dl (3.5-5.0); Albumin/Globulin Ratio 1.6 (1.1-1.8); Anion Gap 11.3 mEq/L (5-15); Calcium 8.9 mg/dl (8.4-10.2); Carbon Dioxide 28 mmol/L (22.0-30.0); Globulin 2.4 g/dL (1.3-3.2); Glucose 98 mg/dl (74-100); Total Protein,Serum 6.3 g/dl (6.3-8.2)
--- NOTE | 2023-01-10 18:36 | PC.NURSE ---
patient ambulated with walker from ed room 7 to restroom without complications. patient reports she felt okay while ambulating. ER MD has been notified.
== END 2023-01-10 18:51 | disposition home or self-care (01) ==
PROVIDERS: Emergency Provider Student in an Organized Health Care Education/Training Program; PCP Internal Medicine
DX: R51.9 Headache, unspecified (principal); R42 Dizziness and giddiness; J18.9 Pneumonia, unspecified organism
CPT/HCPCS: 70450; 70496; 70498; 71045; 80053; 85025; 85610; 85730; 93005; 99285; Q9967

== ENCOUNTER → 2023-02-22 11:23 | Outpatient (CLI) | payer MEDICARE, MEDICAID, SELFPAY ==
--- NOTE | 2023-02-22 11:30 | MR_ITS ---
FINAL REPORT CLINICAL HISTORY: MILD COGNITIVE REPAIR. VERTIGO POSTERIOR HEAD PAIN DIZZINESS X 2-3 MONTHS FINDINGS: Multi planar MR imaging was obtained through the brain without contrast. The midline structures appear intact. There is no evidence of Chiari malformation. On T2 and flair axial images the brain parenchyma is homogeneous. There is mild abnormal signal in the deep white matter bilaterally. On diffusion-weighted images there is no evidence of restricted diffusion. The visualized paranasal sinuses demonstrate normal signal voids. The seventh and eighth nerve root complexes are intact. IMPRESSION: Chronic changes with no acute intracranial abnormality. Reviewed, Interpreted and Dictated by Gerardo Kim MD Transcribed by Marlys Valdes Authenticated and [facility]
== END ==
PROVIDERS: PCP Internal Medicine; Visit Provider Internal Medicine
DX: G31.84 Mild cognitive impairment of uncertain or unknown etiology (principal); R42 Dizziness and giddiness
CPT/HCPCS: 70551

== ENCOUNTER → 2023-02-25 18:07 | Outpatient (CLI) | payer MEDICARE, MEDICAID, SELFPAY ==
[2023-02-25 19:15] LABS: Erythrocyte Sedimentation Rate 19 mm/hr (0-30)
== END ==
PROVIDERS: PCP Internal Medicine; Visit Provider Internal Medicine
DX: R29.6 Repeated falls (principal); R29.898 Other symptoms and signs involving the musculoskeletal system; M54.2 Cervicalgia
CPT/HCPCS: 85651

== ENCOUNTER 2023-06-16 22:51 | Emergency (ER) | payer MEDICARE, MEDICAID, SELFPAY ==
[2023-06-16 22:54] VITALS: BP 161/83; PULSE 67; RESP 16; TEMP 36.6; O2SAT 98; BMI 27.1
--- NOTE | 2023-06-16 23:27 | XR_ITS ---
PROCEDURE INFORMATION: Exam: XR Pelvis Exam date and time: 06/17/2023 12:38 AM Age: 83 years old Clinical indication: Other: Fall; Additional info: Multiple falls TECHNIQUE: Imaging protocol: Radiologic exam of the pelvis. Views: 1 or 2 view. COMPARISON: CR XR PELVIS 1-2V 05/09/2020 9:30 PM FINDINGS: Bones/joints: Partially visualized lumbar spine surgical hardware. There is moderate osteoarthritis of the hips with joint space narrowing, productive changes, and subchondral sclerosis. There are partially visualized degenerative changes of the sacroiliac joints and lumbar spine as well as some degenerative disease of the pubic symphysis. No acute fracture or dislocation is identified. Soft tissues: Unremarkable. Gastrointestinal tract: Rectal staple line is noted. Other findings: The examination is limited by under penetration. IMPRESSION: Degenerative disease without acute injury identified.
--- NOTE | 2023-06-16 23:27 | XR_ITS ---
PROCEDURE INFORMATION: Exam: XR Chest Exam date and time: 06/17/2023 12:38 AM Age: 83 years old Clinical indication: Other: Fall; Additional info: Multiple falls TECHNIQUE: Imaging protocol: Radiologic exam of the chest. Views: 1 view. COMPARISON: CR XR CHEST PORTABLE 01/10/2023 4:48 PM FINDINGS: Lungs: Unremarkable. No consolidation. Pleural spaces: Unremarkable. No pleural effusion. No pneumothorax. Heart/Mediastinum: Stable cardiac and mediastinal contours. Vasculature: There are calcifications of the aortic arch. Diaphragm: There is elevation of the right hemidiaphragm. Bones/joints: Partially visualized surgical hardware within the lumbar spine. IMPRESSION: No dense parenchymal consolidation, pleural effusion, or pneumothorax.
--- NOTE | 2023-06-16 23:27 | CT_ITS ---
PROCEDURE INFORMATION: Exam: CT Cervical Spine Without Contrast Exam date and time: 06/17/2023 12:35 AM Age: 83 years old Clinical indication: Injury or trauma; Fall; Additional info: Falls, head injury TECHNIQUE: Imaging protocol: Computed tomography of the cervical spine without contrast. Radiation optimization: All CT scans at this facility use at least one of these dose optimization techniques: automated exposure control; mA and/or kV adjustment per patient size (includes targeted exams where dose is matched to clinical indication); or iterative reconstruction. REPORTING DATA: Count of CT and Cardiac NM exams in prior 12 months: This patient has received 3 known CTs and 0 known cardiac nuclear medicine studies in the 12 months prior to the current study. COMPARISON: CT CERVICAL SPINE WO CON 05/09/2020 9:23 PM FINDINGS: Bones/joints: Spinal alignment is normal. No fracture or bone destruction. Predental space narrowing, proliferative change around the dens and hypertrophic pannus consistent with arthritis. Multilevel degenerative disc disease most notable at C5-C6 and C6-C7 levels with disc space narrowing and small posterior projecting disc osteophyte complexes. Moderate to severe multilevel facet arthropathy. Moderately severe uncovertebral joint hypertrophy at C5-C6 level. Lungs: Lung apices are normal. Vasculature: Carotid calcifications. Soft tissues: Unremarkable. Other findings: . IMPRESSION: 1. Spinal alignment is normal. 2. No fracture or bone destruction. 3. Predental space narrowing, proliferative change around the dens and hypertrophic pannus consistent with arthritis. 4. Multilevel degenerative disc disease most notable at C5-C6 and C6-C7 levels with disc space narrowing and small posterior projecting disc osteophyte complexes. 5. Moderate to severe multilevel facet arthropathy. 6. . 7. Moderately severe uncovertebral joint hypertrophy at C5-C6 level. 8. Carotid calcifications.
--- NOTE | 2023-06-16 23:27 | CT_ITS ---
PROCEDURE INFORMATION: Exam: CT Head Without Contrast Exam date and time: 06/17/2023 12:33 AM Age: 83 years old Clinical indication: Injury or trauma; Fall; Additional info: Falls, head injury TECHNIQUE: Imaging protocol: Computed tomography of the head without contrast. Radiation optimization: All CT scans at this facility use at least one of these dose optimization techniques: automated exposure control; mA and/or kV adjustment per patient size (includes targeted exams where dose is matched to clinical indication); or iterative reconstruction. REPORTING DATA: Count of CT and Cardiac NM exams in prior 12 months: This patient has received 3 known CTs and 0 known cardiac nuclear medicine studies in the 12 months prior to the current study. COMPARISON: MR HEAD/BRAIN WO CON 02/22/2023 11:39 AM FINDINGS: Brain: No evidence for intracranial hemorrhage, mass lesions or acute stroke. Intracranial vascular calcifications. Mild small vessel ischemic change in the periventricular white matter. Low-density posterior limb left internal capsule; possible remote lacunar infarct. Possible wallerian degeneration left cerebral peduncle. . Old lacunar infarct left external capsule. Cerebral ventricles: No ventriculomegaly. Pituitary gland and sella: Negative Paranasal sinuses: Visualized sinuses are unremarkable. No fluid levels. Mastoid air cells: Visualized mastoid air cells are well aerated. Orbital cavities: Negative. Parotid and submandibular glands: Negative Bones/joints: Unremarkable. No acute fracture. Soft tissues: Unremarkable. Vasculature: Negative. Other findings: Mild generalized atrophy. IMPRESSION: 1. No evidence for intracranial hemorrhage, mass lesions or acute stroke. 2. Intracranial vascular calcifications. 3. Mild generalized atrophy. 4. Mild small vessel ischemic change in the periventricular white matter. 5. Low-density posterior limb left internal capsule; possible remote lacunar infarct. 6. Possible wallerian degeneration left cerebral peduncle. 7. Old lacunar infarct left external capsule.
[2023-06-16 23:28] VITALS: BP 139/70; BP 153/73; BP 167/74; PULSE 66; PULSE 67; PULSE 70
--- NOTE | 2023-06-16 23:29 | ECG_ITS ---
APPROVED REPORT Exam: Resting ECG HR:64 bpm ECG Measurements Heart Rate 64 AXES GA 144 P 60 QRSd 82 QRS -14 QT 392 T 57 QTc 401 Conclusion SINUS RHYTHM LOW QRS VOLTAGE IN PRECORDIAL LEADS [QRS DEFLECTION < 1.0 mV IN CHEST LEADS] BORDERLINE ECG UNCONFIRMED REPORT Electronically signed by : Imtiaz Cortés MD 06/18/2023 20:05:53
--- NOTE | 2023-06-16 23:29 | PC.NURSE ---
pt reports dizziness, while shifting positions for orthostatic vital signs
--- NOTE | 2023-06-16 23:36 | HMH.EDGENADL ---
Discharge Plan Disposition Patient Disposition: Home, Self-Care Condition: Good Prescriptions Prescriptions: New nitrofurantoin monohyd/m-cryst [Macrobid] 100 mg capsule 100 mg PO BID 7 Days Qty: 14 0RF Rx Instructions: must administer with a meal/food No Action propranolol 40 mg tablet 40 mg PO BID Patient Comments: TAKE ONE TABLET BY MOUTH TWICE DAILY FOR tremor primidone 250 mg tablet 250 mg PO HS Patient Comments: TAKE ONE TABLET BY MOUTH EVERY DAY AT BEDTIME pantoprazole 40 mg tablet,delayed release (DR/EC) 40 mg PO POSTTR Patient Comments: TAKE ONE TABLET BY MOUTH EVERY DAY simvastatin 20 mg tablet 20 mg PO HS Patient Comments: TAKE ONE TABLET BY MOUTH EVERY DAY AT BEDTIME gabapentin 300 mg capsule 300 mg PO HS Patient Comments: TAKE ONE CAPSULE BY MOUTH EVERY DAY AT BEDTIME FOR LEG cramps levalbuterol HCl 1.25 mg/3 mL solution for nebulization 1.25 mg INHALATION TIDP PRN (Reason: Asthma) Patient Comments: INHALE THE CONTENTS OF 1 VIAL VIA NEBULIZER THREE TIMES DAILY NEEDED FOR asthma losartan 100 mg tablet 100 mg PO DAILY Patient Comments: TAKE ONE TABLET BY MOUTH EVERY DAY memantine 10 mg tablet 10 mg PO BID Patient Comments: TAKE ONE TABLET BY MOUTH TWICE DAILY azithromycin 250 mg tablet See Rx Instructions .ROUTE .COMPLEX Qty: 6 0RF Rx Instructions: For 250 mg dose pack: take 500 mg today (day 1), then 250 mg for 4 days (days 2-5) cefdinir 300 mg capsule 300 mg PO BID 10 Days Qty: 20 0RF Referrals Follow up/Referrals: Dg Kang MD [Primary Care Provider] - See instructions Activity Restrictions/Add. Instructions Additional Instructions/Restrictions: You were evaluated in the emergency department today and diagnosed with a urinary tract infection. Please brick picker your prescription for antibiotics and take the full course as prescribed. Hydrate at home is much as possible. Follow-up with your primary care provider over the next 3 days for reassessment. Return to the emergency department for any new or worsening symptoms. Clinical Impressions Clinical Impression: UTI (urinary tract infection), IAN (acute kidney injury) Instructions Patient Instructions: Acute Kidney Injury, DI for Urinary Tract Infection (UTI), How to Prevent Falls Discharge ED Provider: Louisa Overton General Adult HPI General Chief complaint: Fall Stated complaint: AO [id number] hit head Time Seen by Provider: 06/16/23 22:58 Mode of Arrival: Wheelchair Source of Information: Patient and Relative Limitations: Physical Limitations Description of Symptoms (Recalled from ER Triage Doc. by RN): per pt and family, pt has multiple fall over the last few days, tonight pt rolled out of bed and hit head, denies LOC, pt reports feeling dizzy prior to falls. reports pain in right temporal area, denies pain any where else History of Present Illness HPI narrative: This patient is an 83-year-old female with a history of essential tremor, TIA, left foot drop with frequent falls, cervical spondylolysis, and TIA presenting to the emergency department for evaluation with concern for frequent falls over the last 3 days. According to the patient's family, the patient's grandson was visiting her today when he had stepped outside and came back into her calling for help. She had fallen, he believes that she might of rolled out of bed. She also noted to them after this that she had fallen every day for the last 3 days, and at one point she had hit the right side of her head. No loss of consciousness noted, and no pain otherwise noted. She states that she feels that she is falling because she has had gradually worsening lightheadedness over this time. She denies any fevers, chills, cough, chest pain, shortness of breath, abdominal pain, nausea, vomiting, changes in bowel movements, rashes, or swelling. She denies any cassie
[2023-06-16 23:37] LABS: Basophils # 0.1 K/mm3 (0-0.2); Basophils % 1.1 % (0.1-2.0); Chloride 104 mmol/L (98-107); Eosinophils # 0.3 K/mm3 (0.0-0.4); Eosinophils % 3.4 % (0.1-12.0); Hematocrit 44.5 % (37.0-47.0); Hemoglobin 13.8 g/dL (12.2-16.2); Lymphocytes # 1.4 K/mm3 (0.7-4.5); Lymphocytes % 16.7 % (10-50); Mean Corpuscular HGB Conc 31.1 g/dL (31.8-35.4); Mean Corpuscular Hemoglobin 28.2 pg (27.0-31.2); Mean Corpuscular Volume 90.6 fl (81-99); Mean Platelet Volume 8.2 fl (7.4-10.4); Monocytes # 0.4 K/mm3 (0.1-1.0); Monocytes % 4.9 % (1.7-9.3); Neutrophils # 6.1 K/mm3 (1.8-7.8); Platelet Count 303 K/mm3 (142-424); Potassium 4.4 mmoL/L (3.5-5.1); Red Blood Count 4.91 M/mm3 (4.20-5.40); Red Cell Distribution Width 13.9 % (11.5-17.5); Sodium 140 mmol/L (136-145); White Blood Count 8.2 K/mm3 (4.8-10.8)
[2023-06-16 23:39] LABS: Blood Urea Nitrogen 17 mg/dl (7-17); Creatinine Clearance Estimated 38 mL/min (50-200); Estimated Glomerular Filt Rate 43 ml/min (>60); GFR (African American) 52 ML/MIN (>60)
[2023-06-16 23:40] LABS: Alanine Aminotransferase 29 U/L (12-78); Albumin Level 4.2 g/dl (3.5-5.0); Albumin/Globulin Ratio 1.4 (1.1-1.8); Alkaline Phosphatase 124 U/L (38-126); Anion Gap 12.4 mEq/L (5-15); Aspartate Amino Transferase 34 U/L (14-36); Bilirubin,Total < 0.1 mg/dl (0.2-1.3); Calcium 9.5 mg/dl (8.4-10.2); Carbon Dioxide 28 mmol/L (22.0-30.0); Glucose 112 mg/dl (74-100); Magnesium 1.8 mg/dl (1.6-2.3); Total Protein,Serum 7.2 g/dl (6.3-8.2)
[2023-06-17 00:56] LABS: Appearance,Urine SL CLOUDY (Clear); Bilirubin,Urine Negative (Negative); Blood, Urine TRACE-I (Negative); Color,Urine YELLOW (Yellow); Glucose,Urine (UA) Negative (Negative); Ketones,Urine Negative (Negative); Leukocyte Esterase,Urine 2+ (Negative); Microscopic, Urine URINE MICROSCOPIC (MICROSCOPIC); Nitrate,Urine Negative (Negative); PH,Urine 6.5 (5.0-8.5); Protein,Urine Negative (Negative); Urobilinogen,Urine 0.2 EU/dl (0.2)
[2023-06-17 01:17] LABS: Bacteria,Urine 2+ /lpf; RBC,Urine Occasional #/hpf (0-3); Squamous Epithelial Cell,Urine Occasional #/hpf (0-5)
--- NOTE | 2023-06-17 02:11 | PC.NURSE ---
pt drinking water without difficulty, ambulated with walker around nurses station, pt tolerated well.
[2023-06-17 02:21] VITALS: BP 161/104; PULSE 74; RESP 20; TEMP 36.6; O2SAT 94
--- NOTE | 2023-06-17 02:24 | PC.NURSE ---
pt discharged and assisted in walking the pt around the ER
--- NOTE | 2023-06-19 10:38 | PC.NURSE ---
dr. regan is ER MD on shift at this time notified him of pt preliminary urine culture results-gram negative rods, pt d/c from ER on Macrobid bid x7 days states no medications need to be changed at this time.
== END 2023-06-17 02:22 | disposition home or self-care (01) ==
PROVIDERS: Emergency Provider Emergency Medicine; PCP Internal Medicine
DX: N17.9 Acute kidney failure, unspecified (principal); N39.0 Urinary tract infection, site not specified; R42 Dizziness and giddiness; R29.6 Repeated falls; Z86.73 Personal history of transient ischemic attack (TIA), and cerebral infarction without residual deficits; Z87.891 Personal history of nicotine dependence; W06.XXXA Fall from bed, initial encounter
CPT/HCPCS: 70450; 71045; 72125; 72170; 80053; 81001; 83735; 85025; 87086; 87088; 87186; 93005; 96360; 99285

== ENCOUNTER → 2023-07-09 14:16 | Outpatient (CLI) | payer MEDICARE, MEDICAID, SELFPAY ==
[2023-07-09 14:31] LABS: Microscopic, Urine URINE MICROSCOPIC (MICROSCOPIC)
[2023-07-09 14:44] LABS: Appearance,Urine CLEAR (Clear); Bilirubin,Urine Negative (Negative); Blood, Urine Negative (Negative); Color,Urine YELLOW (Yellow); Glucose,Urine (UA) Negative (Negative); Ketones,Urine Negative (Negative); Leukocyte Esterase,Urine Negative (Negative); Nitrate,Urine Negative (Negative); PH,Urine 6.5 (5.0-8.5); Protein,Urine Negative (Negative); Specific Gravity, Urine <= 1.005 (1.005-1.030); Urobilinogen,Urine 0.2 EU/dl (0.2)
[2023-07-09 14:58] LABS: Squamous Epithelial Cell,Urine Occasional #/hpf (0-5)
== END ==
PROVIDERS: PCP Internal Medicine; Visit Provider Internal Medicine
DX: N39.0 Urinary tract infection, site not specified (principal)
CPT/HCPCS: 81001

== ENCOUNTER 2024-01-08 15:54 | Outpatient (CLI) | payer MEDICARE, MEDICAID, SELFPAY ==
--- NOTE | 2024-01-08 16:00 | XR_ITS ---
FINAL REPORT CLINICAL HISTORY: WRIST PAIN states left wrist pain for a couple days, nki COMPARISON: None FINDINGS: LEFT WRIST Three views demonstrate 7 mm of ulnar negative variance. There is no acute fracture or dislocation. 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 There is significant narrowing of the radiocarpal joint with degenerative subchondral cyst formation at the medial aspect of the distal radius. The soft tissues are unremarkable. IMPRESSION: Advanced changes of osteoarthritis without acute bony abnormality. Reviewed, Interpreted and Dictated by Gerardo Kim MD Transcribed by Stefany Magana Authenticated and [facility]
== END 2024-01-08 23:59 ==
LOC: RAD 15:56
PROVIDERS: PCP Internal Medicine; Visit Provider Internal Medicine
DX: M25.532 Pain in left wrist (principal)
CPT/HCPCS: 73110

== ENCOUNTER 2024-01-29 16:55 | Outpatient (CLI) | payer MEDICARE, MEDICAID, SELFPAY ==
[2024-01-29 21:34] LABS: Chloride 100 mmol/L (98-107); Sodium 138 mmol/L (136-145)
[2024-01-29 21:35] LABS: Potassium 4.7 mmoL/L (3.5-5.1)
[2024-01-29 21:37] LABS: Alanine Aminotransferase 16 U/L (12-78); Albumin Level 3.9 g/dl (3.5-5.0); Albumin/Globulin Ratio 1.8 (1.1-1.8); Alkaline Phosphatase 126 U/L (38-126); Anion Gap 14.7 mEq/L (5-15); Aspartate Amino Transferase 29 U/L (14-36); Bilirubin,Total 0.5 mg/dl (0.2-1.3); Blood Urea Nitrogen 17 mg/dl (7-17); Carbon Dioxide 28 mmol/L (22.0-30.0); Cholesterol 175 mg/dl (140-200); Estimated Glomerular Filt Rate 53 ml/min (>60); GFR (African American) 64 ML/MIN (>60); Globulin 2.2 g/dL (1.3-3.2); Total Protein,Serum 6.1 g/dl (6.3-8.2); Triglycerides 166 mg/dl (30-150); VLDL Cholesterol 33 mg/dL (0-40)
[2024-01-29 21:38] LABS: Calcium 9.6 mg/dl (8.4-10.2); Glucose 72 mg/dl (74-100)
[2024-01-29 21:49] LABS: Direct LDL Cholesterol 98.94 mg/dL (100-129)
[2024-01-29 23:42] LABS: Chol/HDL Ratio 3.2 (1-3.5); HDL Cholesterol 54 mg/dl (40-60)
== END 2024-01-29 23:59 | disposition home or self-care (01) ==
LOC: LAB.DROPOF 16:57
PROVIDERS: PCP Internal Medicine; Visit Provider Internal Medicine
DX: I10 Essential (primary) hypertension (principal); E78.5 Hyperlipidemia, unspecified; M15.0 Primary generalized (osteo)arthritis; N19 Unspecified kidney failure; R25.1 Tremor, unspecified; G30.9 Alzheimer's disease, unspecified; J45.998 Other asthma
CPT/HCPCS: 80053; 80061

== ENCOUNTER 2024-04-29 12:00 | Outpatient (CLI) | payer MEDICARE, MEDICAID, SELFPAY ==
--- NOTE | 2024-04-29 12:05 | XR_ITS ---
FINAL REPORT CLINICAL HISTORY: Right knee pain COMPARISON: None FINDINGS: Three views of the right knee reveal no evidence of fracture or dislocation. The bony alignment is normal. Mild to moderate degenerative changes present in the knee. There is joint space narrowing in the medial and patellofemoral compartments. There is no evidence of joint effusion. Soft tissue calcification is noted. IMPRESSION: No acute abnormality identified. Joint space narrowing and the medial and patellofemoral compartments. Reviewed, Interpreted and Dictated by Geremias Martins III, MD Transcribed by Corina Isbell Authenticated and [facility]
[2024-04-29 17:37] LABS: Basophils # 0.1 K/mm3 (0-0.2); Basophils % 1.6 % (0.1-2.0); Eosinophils # 0.2 K/mm3 (0.0-0.4); Eosinophils % 3.7 % (0.1-12.0); Hematocrit 41.7 % (37.0-47.0); Hemoglobin 13.5 g/dL (12.2-16.2); Lymphocytes # 1.1 K/mm3 (0.7-4.5); Lymphocytes % 18.7 % (10-50); Mean Corpuscular HGB Conc 32.5 g/dL (31.8-35.4); Mean Corpuscular Hemoglobin 30.4 pg (27.0-31.2); Mean Corpuscular Volume 93.6 fl (81-99); Mean Platelet Volume 9.3 fl (7.4-10.4); Monocytes # 0.4 K/mm3 (0.1-1.0); Neutrophils # 3.8 K/mm3 (1.8-7.8); Platelet Count 256 K/mm3 (142-424); Red Blood Count 4.45 M/mm3 (4.20-5.40); Red Cell Distribution Width 14.5 % (11.5-17.5); White Blood Count 5.6 K/mm3 (4.8-10.8)
[2024-04-29 18:08] LABS: Albumin Level 4.3 g/dl (3.5-5.0); Chloride 104 mmol/L (98-107); Sodium 139 mmol/L (136-145)
[2024-04-29 18:09] LABS: Potassium 4.6 mmoL/L (3.5-5.1)
[2024-04-29 18:11] LABS: Alanine Aminotransferase 19 U/L (12-78); Albumin/Globulin Ratio 1.8 (1.1-1.8); Alkaline Phosphatase 125 U/L (38-126); Anion Gap 11.6 mEq/L (5-15); Aspartate Amino Transferase 32 U/L (14-36); Bilirubin,Total 0.6 mg/dl (0.2-1.3); Blood Urea Nitrogen 17 mg/dl (7-17); Carbon Dioxide 28 mmol/L (22.0-30.0); Cholesterol 191 mg/dl (140-200); Estimated Glomerular Filt Rate 60 ml/min (>60); GFR (African American) 72 ML/MIN (>60); Globulin 2.4 g/dL (1.3-3.2); Total Protein,Serum 6.7 g/dl (6.3-8.2); Triglycerides 154 mg/dl (30-150); VLDL Cholesterol 31 mg/dL (0-40)
[2024-04-29 18:12] LABS: Calcium 9.1 mg/dl (8.4-10.2); Chol/HDL Ratio 3.5 (1-3.5); Glucose 81 mg/dl (74-100); HDL Cholesterol 54 mg/dl (40-60)
[2024-04-29 18:22] LABS: Direct LDL Cholesterol 94.31 mg/dL (100-129)
== END 2024-04-29 23:59 | disposition home or self-care (01) ==
LOC: LAB 12:02
PROVIDERS: PCP Internal Medicine; Visit Provider Internal Medicine
DX: M17.11 Unilateral primary osteoarthritis, right knee (principal); Z51.81 Encounter for therapeutic drug level monitoring; R25.1 Tremor, unspecified; E78.5 Hyperlipidemia, unspecified; Z79.899 Other long term (current) drug therapy
CPT/HCPCS: 73562; 80053; 80061; 80184; 85025

== ENCOUNTER 2024-10-28 16:17 | Outpatient (CLI) | payer MEDICARE, MEDICAID, SELFPAY ==
[2024-10-28 16:41] LABS: Basophils # 0.2 K/mm3 (0-0.2); Basophils % 2.1 % (0.1-2.0); Eosinophils # 0.2 K/mm3 (0.0-0.4); Hematocrit 43.2 % (37.0-47.0); Hemoglobin 13.7 g/dL (12.2-16.2); Lymphocytes # 0.9 K/mm3 (0.7-4.5); Lymphocytes % 12.3 % (10-50); Mean Corpuscular HGB Conc 31.7 g/dL (31.8-35.4); Mean Corpuscular Hemoglobin 29.6 pg (27.0-31.2); Mean Corpuscular Volume 93.3 fl (81-99); Mean Platelet Volume 10.7 fl (7.4-10.4); Monocytes # 0.5 K/mm3 (0.1-1.0); Neutrophils # 5.5 K/mm3 (1.8-7.8); Neutrophils % 75.3 % (37.0-80.0); Platelet Count 214 K/mm3 (142-424); Red Blood Count 4.63 M/mm3 (4.20-5.40); Red Cell Distribution Width 13.8 % (11.5-17.5); White Blood Count 7.3 K/mm3 (4.8-10.8)
[2024-10-28 17:08] LABS: Alanine Aminotransferase 23 U/L (12-78); Albumin Level 4.9 g/dl (3.5-5.0); Albumin/Globulin Ratio 2.7 (1.1-1.8); Alkaline Phosphatase 135 U/L (38-126); Anion Gap 14.6 mEq/L (5-15); Aspartate Amino Transferase 37 U/L (14-36); Bilirubin,Total 0.3 mg/dl (0.2-1.3); Blood Urea Nitrogen 16 mg/dl (7-17); Calcium 9.8 mg/dl (8.4-10.2); Carbon Dioxide 31 mmol/L (22.0-30.0); Chloride 100 mmol/L (98-107); Chol/HDL Ratio 3.6 (1-3.5); Cholesterol 189 mg/dl (140-200); Estimated Glomerular Filt Rate 68 ml/min (>60); GFR (African American) 82 ML/MIN (>60); Globulin 1.8 g/dL (1.3-3.2); Glucose 79 mg/dl (74-100); HDL Cholesterol 52 mg/dl (40-60); Potassium 4.6 mmoL/L (3.5-5.1); Sodium 141 mmol/L (136-145); Total Protein,Serum 6.7 g/dl (6.3-8.2); Triglycerides 230 mg/dl (30-150); VLDL Cholesterol 46 mg/dL (0-40)
[2024-10-28 17:19] LABS: Direct LDL Cholesterol 89.53 mg/dL (100-129)
== END 2024-10-28 23:59 | disposition home or self-care (01) ==
LOC: LAB.DROPOF 16:17
PROVIDERS: PCP Internal Medicine; Visit Provider Internal Medicine
DX: I10 Essential (primary) hypertension (principal); E78.5 Hyperlipidemia, unspecified; K21.9 Gastro-esophageal reflux disease without esophagitis; G30.9 Alzheimer's disease, unspecified; F02.80 Dementia in other diseases classified elsewhere, unspecified severity, without behavioral disturbance, psychotic disturbance, mood disturbance, and anxiety; R25.1 Tremor, unspecified; J45.909 Unspecified asthma, uncomplicated; M47.812 Spondylosis without myelopathy or radiculopathy, cervical region; M15.0 Primary generalized (osteo)arthritis
CPT/HCPCS: 80053; 80061; 85025

== ENCOUNTER 2024-11-30 15:41 | Emergency (ER) | payer MEDICARE, MEDICAID, SELFPAY ==
[2024-11-30] VITALS (9 sets, daily range): BP systolic 135–186; BP diastolic 74–96; PULSE 66–83; RESP 14–18; TEMP 36.8; O2SAT 92–98; BMI 26.9
--- NOTE | 2024-11-30 16:02 | HMH.EDGENADL ---
Discharge Plan Disposition Patient Disposition: Home, Self-Care Condition: Serious Prescriptions Prescriptions: No Action diclofenac sodium 1 % gel 4 g topical QID PRN (Reason: Arthritis pain of knee) Qty: 100 5RF Rx Instructions: apply to single knee, ankle, foot; for foot includes sole/toes/top of foot memantine 10 mg tablet 10 mg PO BID Qty: 180 1RF levalbuterol HCl 1.25 mg/3 mL solution for nebulization See Rx Instructions .ROUTE .COMPLEX Qty: 270 1RF Dose Instruction: INHALE THE CONTENTS OF 1 VIAL VIA NEBULIZER THREE TIMES DAILY NEEDED FOR ASTHMA Rx Instructions: INHALE THE CONTENTS OF 1 VIAL VIA NEBULIZER THREE TIMES DAILY NEEDED FOR ASTHMA simvastatin 20 mg tablet See Rx Instructions .ROUTE .COMPLEX Qty: 90 1RF Dose Instruction: TAKE ONE TABLET BY MOUTH EVERY DAY AT BEDTIME Rx Instructions: TAKE ONE TABLET BY MOUTH EVERY DAY AT BEDTIME primidone 250 mg tablet See Rx Instructions .ROUTE .COMPLEX Qty: 90 1RF Dose Instruction: TAKE ONE TABLET BY MOUTH EVERY DAY AT BEDTIME Rx Instructions: TAKE ONE TABLET BY MOUTH EVERY DAY AT BEDTIME losartan 100 mg tablet See Rx Instructions .ROUTE .COMPLEX Qty: 90 1RF Dose Instruction: TAKE ONE TABLET BY MOUTH EVERY DAY Rx Instructions: TAKE ONE TABLET BY MOUTH EVERY DAY pantoprazole 40 mg tablet,delayed release (DR/EC) See Rx Instructions .ROUTE .COMPLEX Qty: 90 1RF Dose Instruction: TAKE ONE TABLET BY MOUTH EVERY DAY Rx Instructions: TAKE ONE TABLET BY MOUTH EVERY DAY propranolol 60 mg tablet See Rx Instructions .ROUTE .COMPLEX Qty: 60 5RF Dose Instruction: TAKE ONE TABLET BY MOUTH TWICE DAILY Rx Instructions: TAKE ONE TABLET BY MOUTH TWICE DAILY gabapentin 300 mg capsule 600 mg PO HS Qty: 60 2RF Referrals Follow up/Referrals: Dg Kang MD [Primary Care Provider] - See instructions Activity Restrictions/Add. Instructions Additional Instructions/Restrictions: You need to follow-up with Dr. Kang within 48 hours. You need to bring your stool specimen back to the hospital with a label on it. If you have any new or worsening signs or symptoms return to the ER as needed. Clinical Impressions Clinical Impression: Pancolitis Instructions Patient Instructions: DI for Diarrhea and Traveler's Diarrhea -- Adult Print Language Print Language: Amharic Discharge ED Provider: Louisa Overton General Adult HPI <JEREMIAH Silverman - Last Filed: 11/30/24 23:01> General Chief complaint: Nausea/Vomiting/Diarrhea Stated complaint: diarrhea Time Seen by Provider: 11/30/24 16:02 Mode of Arrival: Ambulatory Source of Information: Patient Description of Symptoms (Recalled from ER Triage Doc. by RN): Pt presents for evaluation evaluation of diarreha x 1 week. Pt denies abdominal pain and vomiting. History of Present Illness HPI narrative: Patient presents for evaluation of diarrhea x 1 week. While the chief complaint above says nausea vomiting patient has not had that. She actually is tolerating oral intake urinating normally and denies chest pain shortness of breath abdominal pain fever chills hemoptysis hematochezia melena nausea or vomiting. Patient reports that she is going numerous times a day. Patient has not recently been on antibiotics. Related Data Previous Rx's ?Medication ?Instructions ?Recorded diclofenac sodium 1 % topical gel 4 g topical QID PRN Arthritis pain 04/29/24 of knee #100 grams memantine 10 mg tablet 10 mg PO BID #180 tabs 07/29/24 levalbuterol HCl 1.25 mg/3 mL See Rx Instructions .Route 09/25/24 solution for nebulization .COMPLEX #270 mL losartan 100 mg tablet See Rx Instructions .Route 09/28/24 .COMPLEX #90 tabs primidone 250 mg tablet See Rx Instructions .Route 09/28/24 .COMPLEX #90 tabs simvastatin 20 mg tablet See Rx Instructions .Route 09/28/24 .COMPLEX #90 tabs pantoprazole 40 mg tablet,delayed See Rx Instructions .Route 10/30/24 release .COMPLEX #90 tabs propranolol 60 mg tablet See Rx Instructions .Route 10/30/24 .COMPLEX #60 tabs gabapentin 300 mg capsule 600 mg (2 x 300 mg) PO HS #60 caps 11/27/24 Allergies Allergy/AdvReac Type Severity Reaction Status Date / Time glucosamine Allergy Unknown BOWELS Verified 10/28/24 09:46 BLEEDING Sulfa (Sulfonamide Allergy Unknown Verified 10/28/24 09:46 Antibiotics) donepezil Allergy Verified 10/28/24 09:46 Penicillins Allergy Verified 10/28/24 09:46 sulfamethoxazole AdvReac Verified 10/28/24 09:46 PFSH <JEREMIAH Silverman - Last Filed: 11/30/24 23:01> PFSH Disclaimer: The information contained in this section may have been updated after the patient was seen, as this information can be updated by other users. 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 Smoking Status: Never smoker alcohol intake: never substance use type: denies use current occupational status: other Travel in the last 8 weeks: None household members: none housing: house current occupational exposures/hazards: No caffeine: No Other Medical History Have you received the Flu Vaccine for this season: Yes Have you received the Pneumonia Vaccine: Yes <JEREMIAH Silverman - Last Filed: 11/30/24 23:01> ROS Obtained: Yes Systems reviewed as appropriate & no additional complaints except as documented Physical Exam <JEREMIAH Silverman - Last Filed: 11/30/24 23:01> General General appearance: alert and in no apparent distress Respiratory Respiratory exam: Present normal lung sounds bilaterally Cardiovascular Cardiovascular exam: Present regular rate Neurological Exam Neurological exam: Present alert and oriented X3 Medical Decision Making <JEREMIAH Silverman - Last Filed: 11/30/24 23:01> Medical Records Medical records reviewed: Yes I reviewed the patient's medical records. Screening: Per USPSTF and CDC recommendations, given the prevalence of disease in our region, it is our hospital?s policy to screen for HIV and viral Hepatitis for all patients aged 18 and over and those with ongoing risk factors. [place] Inquiry Pt receiving controlled substance: No Vital Signs: 11/30/24 15:45 11/30/24 16:03 11/30/24 16:31 Temperature 98.2 F Temperature Source Oral Pulse Rate 66 68 Pulse Rate [Right] 71 Respiratory Rate 18 16 14 Blood Pressure 163/74 H 135/81 Blood Pressure [Right Arm] 162/76 H Blood Pressure Mean 103 84 Blood Pressure Mean [Right Arm] 104 Blood Pressure Source Blood Pressure Source [Right Arm] Automatic Cuff Blood Pressure Position Blood Pressure Position [Right Arm] Sitting 02 Sat by Pulse Oximetry 98 97 97 Oxygen Delivery Method Room Air 11/30/24 16:53 11/30/24 17:01 11/30/24 17:31 Temperature Temperature Source Pulse Rate 70 72 71 Pulse Rate [Right] Respiratory Rate 18 18 Blood Pressure 157/76 H 158/76 H 175/92 H Blood Pressure [Right Arm] Blood Pressure Mean 103 119 Blood Pressure Mean [Right Arm] Blood Pressure Source Blood Pressure Source [Right Arm] Blood Pressure Position Blood Pressure Position [Right Arm] 02 Sat by Pulse Oximetry 97 97 92 L Oxygen Delivery Method Room Air 11/30/24 18:00 11/30/24 18:29 11/30/24 19:09 Temperature 98.2 F Temperature Source Pulse Rate 75 74 83 Pulse Rate [Right] Respiratory Rate 16 16 18 Blood Pressure 186/96 H 167/87 H 168/96 H Blood Pressure [Right Arm] Blood Pressure Mean 126 142 Blood Pressure Mean [Right Arm] Blood Pressure Source Automatic Cuff Blood Pressure Source [Right Arm] Blood Pressure Position Sitting Blood Pressure Position [Right Arm] 02 Sat by Pulse Oximetry 96 95 Oxygen Delivery Method Room Air Lab Data Lab results reviewed: Yes I reviewed the patient's lab results. Lab Results 11/30/24 16:20: WBC 8.5, RBC 4.23, Hgb 12.7, Hct 38.3, MCV 90.5, MCH 30.0, MCHC 33.2, RDW 13.2, Plt Count 226, MPV 10.3, Neut % (Auto) 76.4, Lymph % (Auto) 13.1, [place] % (Auto) 7.6, Eos % (Auto) 1.5, Baso % (Auto) 1.2, Neut # (Auto) 6.5, Lymph # (Auto) 1.1, [place] # (Auto) 0.7, Eos # (Auto) 0.1, Baso # (Auto) 0.1, Sodium 132 L, Potassium 3.9, Chloride 100, Carbon Dioxide 25, Anion Gap 10.9, BUN 15, Creatinine 0.90, Estimated Creat Clear 46, Estimated GFR 60, Est GFR ( Amer) 72, Glucose 96, Calcium 9.3, Magnesium 1.8, Total Bilirubin 0.4, AST 31, ALT 21, Alkaline Phosphatase 133 H, Total Protein 7.1, Albumin 4.6, Globulin 2.5, Albumin/Globulin Ratio 1.8 11/30/24 16:25: Urine Color Yellow, Urine Appearance Clear, Urine pH 6.5, Ur Specific [place] 1.010, Urine Protein Negative, Urine Glucose (UA) Negative, Urine Ketones Negative, Urine Blood Negative, Urine Nitrate Negative, Urine Bilirubin Negative, Urine Urobilinogen 0.2, Ur Leukocyte Esterase Trace A, Urine RBC None, Urine WBC 5-10, Ur Squamous Epith Cells Occasional, Urine Bacteria Trace 11/30/24 16:20 11/30/24 16:20 Orders (Tests/Meds): ED MEDICATIONS Discontinued Medications Generic Name Dose Route Start Last Admin Trade Name Butchq PRN Reason Stop Dose Admin Acetaminophen 1,000 mg 11/30/24 16:04 11/30/24 16:16 Acetaminophen 1,000mg/100ml Vial IV 11/30/24 16:05 1,000 mg ONCE ONE Administration Sodium Chloride 1,000 mls @ 999 mls/hr 11/30/24 16:04 11/30/24 16:16 Sod Chlor 0.9% 1000ml Bag IV 11/30/24 17:04 999 mls/hr .Q1H1M ONE Administration Iopamidol 75 ml 11/30/24 17:23 11/30/24 17:24 Iopamidol-370 (76%);100ml Bottle IV 11/30/24 17:24 75 ml ONCE ONE Administration Ondansetron HCl 4 mg 11/30/24 16:04 11/30/24 16:16 Ondansetron 4mg/2ml Vial IV 11/30/24 16:05 4 mg ONCE ONE Administration Sodium Chloride 10 ml 11/30/24 17:23 11/30/24 17:24 Sodium Chloride 0.9% 10ml Syr (Rad Only) IV 11/30/24 17:24 10 ml ONCE ONE Administration ORDERS Category Date Time Status CT abdomen pelvis w con Stat Cat Scan 11/30/24 16:04 Completed CBC w/Auto Diff [Complete Blood Count Auto Diff] Stat Lab 11/30/24 16:20 Completed CMP [Comprehensive Metabolic Panel] Stat Lab 11/30/24 16:20 Completed Magnesium Stat Lab 11/30/24 16:20 Completed UA [Urinalysis and Microscopic] Stat Lab 11/30/24 16:25 Completed Urine Culture Stat Micro 11/30/24 16:25 Received Medical Decision Narrative: In summary patient is a 84-year-old female who presents to the emergency department for evaluation of diarrhea. Patient is dynamically stable upon arrival, afebrile. Physical exam is actually remarkable for only mild abdominal discomfort on palpation but no focal tenderness no rebound or guarding or rigidity hyperactive bowel sounds. Breath sounds clear and equal bilaterally to the bases. No suprapubic tenderness.. Differential diagnosis includes gastroenteritis versus diverticulitis versus infectious diarrhea etc. Initial workup will be conducted with hematologic labs diarrhea panel urinalysis. Initial interventions include crystalloid bolus Tylenol and Zofran. Initial workup reviewed by me shows a normal white count with no neutrophilic shift no electrolyte abnormalities urinalysis is bland however patient was unable to provide a stool sample in the ER.. As patient was unable to provide the stool sample I had a shared decision-making discussion with the patient regarding returning with a stool sample or waiting until she is able to go. Via patient directed decision making and discharge patient is comfortable going home with the supplies to collect a stool sample and returning with the specimen when able. Patient to follow-up closely with PCP within 48 hours for reevaluation and to follow the results of her diarrhea panel. If she has increasing pain fever inability to tolerate oral intake patient to return to the ER. Patient verbalized understanding and agreement. <Louisa Overton, DO - Last Filed: 11/30/24 23:06> Vital Signs: 11/30/24 15:45 11/30/24 16:03 11/30/24 16:31 Temperature 98.2 F Temperature Source Oral Pulse Rate 66 68 Pulse Rate [Right] 71 Respiratory Rate 18 16 14 Blood Pressure 163/74 H 135/81 Blood Pressure [Right Arm] 162/76 H Blood Pressure Mean 103 84 Blood Pressure Mean [Right Arm] 104 Blood Pressure Source Blood Pressure Source [Right Arm] Automatic Cuff Blood Pressure Position Blood Pressure Position [Right Arm] Sitting 02 Sat by Pulse Oximetry 98 97 97 Oxygen Delivery Method Room Air 11/30/24 16:53 11/30/24 17:01 11/30/24 17:31 Temperature Temperature Source Pulse Rate 70 72 71 Pulse Rate [Right] Respiratory Rate 18 18 Blood Pressure 157/76 H 158/76 H 175/92 H Blood Pressure [Right Arm] Blood Pressure Mean 103 119 Blood Pressure Mean [Right Arm] Blood Pressure Source Blood Pressure Source [Right Arm] Blood Pressure Position Blood Pressure Position [Right Arm] 02 Sat by Pulse Oximetry 97 97 92 L Oxygen Delivery Method Room Air 11/30/24 18:00 11/30/24 18:29 11/30/24 19:09 Temperature 98.2 F Temperature Source Pulse Rate 75 74 83 Pulse Rate [Right] Respiratory Rate 16 16 18 Blood Pressure 186/96 H 167/87 H 168/96 H Blood Pressure [Right Arm] Blood Pressure Mean 126 142 Blood Pressure Mean [Right Arm] Blood Pressure Source Automatic Cuff Blood Pressure Source [Right Arm] Blood Pressure Position Sitting Blood Pressure Position [Right Arm] 02 Sat by Pulse Oximetry 96 95 Oxygen Delivery Method Room Air Lab Data Lab Results 11/30/24 16:20: WBC 8.5, RBC 4.23, Hgb 12.7, Hct 38.3, MCV 90.5, MCH 30.0, MCHC 33.2, RDW 13.2, Plt Count 226, MPV 10.3, Neut % (Auto) 76.4, Lymph % (Auto) 13.1, [place] % (Auto) 7.6, Eos % (Auto) 1.5, Baso % (Auto) 1.2, Neut # (Auto) 6.5, Lymph # (Auto) 1.1, [place] # (Auto) 0.7, Eos # (Auto) 0.1, Baso # (Auto) 0.1, Sodium 132 L, Potassium 3.9, Chloride 100, Carbon Dioxide 25, Anion Gap 10.9, BUN 15, Creatinine 0.90, Estimated Creat Clear 46, Estimated GFR 60, Est GFR ( Amer) 72, Glucose 96, Calcium 9.3, Magnesium 1.8, Total Bilirubin 0.4, AST 31, ALT 21, Alkaline Phosphatase 133 H, Total Protein 7.1, Albumin 4.6, Globulin 2.5, Albumin/Globulin Ratio 1.8 11/30/24 16:25: Urine Color Yellow, Urine Appearance Clear, Urine pH 6.5, Ur Specific [place] 1.010, Urine Protein Negative, Urine Glucose (UA) Negative, Urine Ketones Negative, Urine Blood Negative, Urine Nitrate Negative, Urine Bilirubin Negative, Urine Urobilinogen 0.2, Ur Leukocyte Esterase Trace A, Urine RBC None, Urine WBC 5-10, Ur Squamous Epith Cells Occasional, Urine Bacteria Trace Orders (Tests/Meds): ED MEDICATIONS Discontinued Medications Generic Name Dose Route Start Last Admin Trade Name Freq PRN Reason Stop Dose Admin Acetaminophen 1,000 mg 11/30/24 16:04 11/30/24 16:16 Acetaminophen 1,000mg/100ml Vial IV 11/30/24 16:05 1,000 mg ONCE ONE Administration Sodium Chloride 1,000 mls @ 999 mls/hr 11/30/24 16:04 11/30/24 16:16 Sod Chlor 0.9% 1000ml Bag IV 11/30/24 17:04 999 mls/hr .Q1H1M ONE Administration Iopamidol 75 ml 11/30/24 17:23 11/30/24 17:24 Iopamidol-370 (76%);100ml Bottle IV 11/30/24 17:24 75 ml ONCE ONE Administration Ondansetron HCl 4 mg 11/30/24 16:04 11/30/24 16:16 Ondansetron 4mg/2ml Vial IV 11/30/24 16:05 4 mg ONCE ONE Administration Sodium Chloride 10 ml 11/30/24 17:23 11/30/24 17:24 Sodium Chloride 0.9% 10ml Syr (Rad Only) IV 11/30/24 17:24 10 ml ONCE ONE Administration ORDERS Category Date Time Status CT abdomen pelvis w con Stat Cat Scan 11/30/24 16:04 Completed CBC w/Auto Diff [Complete Blood Count Auto Diff] Stat Lab 11/30/24 16:20 Completed CMP [Comprehensive Metabolic Panel] Stat Lab 11/30/24 16:20 Completed Magnesium Stat Lab 11/30/24 16:20 Completed UA [Urinalysis and Microscopic] Stat Lab 11/30/24 16:25 Completed Urine Culture Stat Micro 11/30/24 16:25 Received Medical Decision Narrative: In summary patient is a 84-year-old female who presents to the emergency department for evaluation of diarrhea. Patient is dynamically stable upon arrival, afebrile. Physical exam is actually remarkable for only mild abdominal discomfort on palpation but no focal tenderness no rebound or guarding or rigidity hyperactive bowel sounds. Breath sounds clear and equal bilaterally to the bases. No suprapubic tenderness.. Differential diagnosis includes gastroenteritis versus diverticulitis versus infectious diarrhea etc. Initial workup will be conducted with hematologic labs diarrhea panel urinalysis. Initial interventions include crystalloid bolus Tylenol and Zofran. Initial workup reviewed by me shows a normal white count with no neutrophilic shift no electrolyte abnormalities urinalysis is bland however patient was unable to provide a stool sample in the ER.. As patient was unable to provide the stool sample I had a shared decision-making discussion with the patient regarding returning with a stool sample or waiting until she is able to go. Via patient directed decision making and discharge patient is comfortable going home with the supplies to collect a stool sample and returning with the specimen when able. Patient to follow-up closely with PCP within 48 hours for reevaluation and to follow the results of her diarrhea panel. If she has increasing pain fever inability to tolerate oral intake patient to return to the ER. Patient verbalized understanding and agreement. DO Tian: I was consulted by the NANETTE, and we discussed the complexity of the problems being addressed. I approved the treatment and management plan for this patient's care in the emergency department, thus performing a substantive portion of the medical decision making. Patient has colitis on CT scan. CBC is reassuring with no significant leukocytosis, chemistry is reassuring with only mild hyponatremia but no other significant derangements. She is nontoxic-appearing. Urinalysis demonstrates trace leukocyte esterase with 5-10 white blood cells but is negative for nitrates. She does have occasional squamous cells. Urine culture was sent and is pending. Patient was not able provide stool specimen in the ER but did return shortly after discharge with a stool specimen. Patient was given an outpatient order for this so that she did not have to register for the ED again since she had already completed her ED evaluation. Her stool was sent up by outpatient admissions, and I called lab at 2300 11/30 to inquire about results. They advised they rejected the specimen because the labels were in the bag and not on the cup. They advised they would notify family. Louisa Overton DO Critical Care <JEREMIAH Silverman - Last Filed: 11/30/24 23:01> Critical Care Time Critical Care Time: No
--- NOTE | 2024-11-30 16:04 | CT_ITS ---
PROCEDURE INFORMATION: Exam: CT Abdomen And Pelvis With Contrast Exam date and time: 11/30/2024 4:23 PM Age: 84 years old Clinical indication: Other: 1 week of nausea vomiting diarrhea TECHNIQUE: Imaging protocol: Computed tomography of the abdomen and pelvis with contrast. Radiation optimization: All CT scans at this facility use at least one of these dose optimization techniques: automated exposure control; mA and/or kV adjustment per patient size (includes targeted exams where dose is matched to clinical indication); or iterative reconstruction. Contrast material: ISOVUE; Contrast volume: 75 ml; Contrast route: IV; COMPARISON: CR XR CHEST PORTABLE 06/17/2023 12:38 AM FINDINGS: Liver: Fatty liver infiltration. No mass. Gallbladder and biliary ducts: Distended gallbladder without gallbladder wall thickening. Pancreas: Normal. No ductal dilation. Spleen: Normal. No splenomegaly. Adrenal glands: Normal. No mass. Kidneys and ureters: Normal. No hydronephrosis. Stomach and bowel: Nodular colonic wall thickening with mucosal enhancement from cecum to rectum. Scattered colonic diverticula. Postsurgical changes of rectum. Appendix: No evidence of appendicitis. Intraperitoneal space: Unremarkable. No free air. No significant fluid collection. Vasculature: Atherosclerotic calcification of aortoiliac arteries without dilatation. Lymph nodes: Unremarkable. No enlarged lymph nodes. Urinary bladder: Unremarkable as visualized. Reproductive: Unremarkable as visualized. Bones/joints: ORIF from L1-S1 levels with at least partial fusion from L1/2 to L4/5 levels. No acute osseous findings. Soft tissues: Unremarkable. IMPRESSION: 1. Non diverticular colitis. Query C difficile colitis symptoms. 2. Scattered colonic diverticulosis. 3. Fatty liver infiltration.
[2024-11-30] MEDS: ACETAMINOPHEN 1,000MG/100ML VIAL 1000 MG IV (16:16)
[2024-11-30] MEDS: 0.9 % SODIUM CHLORIDE 1000ML 1,000 ML 999 ML IV (16:16)
[2024-11-30] MEDS: ONDANSETRON 4MG/2ML VIAL 4 MG IV (16:16)
--- NOTE | 2024-11-30 16:22 | PC.NURSE ---
assisted pt to the restroom via walker.
[2024-11-30 16:32] LABS: Microscopic, Urine URINE MICROSCOPIC (MICROSCOPIC)
[2024-11-30 16:40] LABS: Basophils # 0.1 K/mm3 (0-0.2); Basophils % 1.2 % (0.1-2.0); Eosinophils # 0.1 K/mm3 (0.0-0.4); Eosinophils % 1.5 % (0.1-12.0); Hematocrit 38.3 % (37.0-47.0); Hemoglobin 12.7 g/dL (12.2-16.2); Lymphocytes # 1.1 K/mm3 (0.7-4.5); Lymphocytes % 13.1 % (10-50); Mean Corpuscular HGB Conc 33.2 g/dL (31.8-35.4); Mean Corpuscular Volume 90.5 fl (81-99); Mean Platelet Volume 10.3 fl (7.4-10.4); Monocytes # 0.7 K/mm3 (0.1-1.0); Monocytes % 7.6 % (1.7-9.3); Neutrophils # 6.5 K/mm3 (1.8-7.8); Neutrophils % 76.4 % (37.0-80.0); Platelet Count 226 K/mm3 (142-424); Red Blood Count 4.23 M/mm3 (4.20-5.40); Red Cell Distribution Width 13.2 % (11.5-17.5); White Blood Count 8.5 K/mm3 (4.8-10.8)
--- NOTE | 2024-11-30 16:41 | PC.NURSE ---
assisted pt to the restroom with personal walker
[2024-11-30 16:49] LABS: Albumin Level 4.6 g/dl (3.5-5.0); Chloride 100 mmol/L (98-107); Sodium 132 mmol/L (136-145)
[2024-11-30 16:50] LABS: Potassium 3.9 mmoL/L (3.5-5.1)
[2024-11-30 16:52] LABS: Alanine Aminotransferase 21 U/L (12-78); Albumin/Globulin Ratio 1.8 (1.1-1.8); Alkaline Phosphatase 133 U/L (38-126); Anion Gap 10.9 mEq/L (5-15); Aspartate Amino Transferase 31 U/L (14-36); Bilirubin,Total 0.4 mg/dl (0.2-1.3); Blood Urea Nitrogen 15 mg/dl (7-17); Calcium 9.3 mg/dl (8.4-10.2); Carbon Dioxide 25 mmol/L (22.0-30.0); Creatinine Clearance Estimated 46 mL/min (50-200); Estimated Glomerular Filt Rate 60 ml/min (>60); GFR (African American) 72 ML/MIN (>60); Globulin 2.5 g/dL (1.3-3.2); Glucose 96 mg/dl (74-100); Total Protein,Serum 7.1 g/dl (6.3-8.2)
[2024-11-30 16:53] LABS: Magnesium 1.8 mg/dl (1.6-2.3)
--- NOTE | 2024-11-30 17:20 | PC.NURSE ---
pt transported to radiology via wheelchair
[2024-11-30] MEDS: IOPAMIDOL-370 (76%);100ML BOTTLE 75 ML IV (17:24)
[2024-11-30] MEDS: SODIUM CHLORIDE 0.9% 10ML SYR (RAD ONLY) 10 ML IV (17:24)
[2024-11-30 17:34] LABS: Appearance,Urine Clear (Clear); Color,Urine Yellow (Yellow); Glucose,Urine (UA) Negative (Negative); Ketones,Urine Negative (Negative); PH,Urine 6.5 (5.0-8.5); Protein,Urine Negative (Negative)
[2024-11-30 17:35] LABS: Bacteria,Urine Trace /lpf; Bilirubin,Urine Negative (Negative); Blood, Urine Negative (Negative); Leukocyte Esterase,Urine Trace (Negative); Nitrate,Urine Negative (Negative); Squamous Epithelial Cell,Urine Occasional #/hpf (0-5); Urobilinogen,Urine 0.2 EU/dl (0.2)
--- NOTE | 2024-11-30 18:16 | PC.NURSE ---
assisted pt to the restroom and back to room
--- NOTE | 2024-11-30 19:08 | PC.NURSE ---
provided pt with supplies to collect stool sample at home and discussed process, pt verbalized understanding
--- NOTE | 2024-12-02 09:09 | PC.NURSE ---
URINE CULTURE DISCUSSED WITH DR ALFARO, SPOKE WITH PT'S DAUGHTER, RX CALLED IN TO [facility].
--- NOTE | 2024-12-04 08:58 | PC.NURSE ---
URINE CULTURE DISCUSSED WITH DR HOLMAN, NO NEW ORDERS
== END 2024-11-30 19:10 | disposition home or self-care (01) ==
PROVIDERS: Physician Assistant; Emergency Provider Emergency Medicine; PCP Internal Medicine
DX: K51.00 Ulcerative (chronic) pancolitis without complications (principal); R19.7 Diarrhea, unspecified
CPT/HCPCS: 74177; 80053; 81001; 83735; 85025; 87086; 87088; 87186; 96361; 96374; 96375; 99285; J0131; J2405; J7030; Q9967

== ENCOUNTER 2024-12-04 11:00 | Outpatient (CLI) | payer MEDICARE, MEDICAID, SELFPAY ==
[2024-12-04 14:13] LABS: Adenovirus F 40/41, stool Not Detected (NotDetected); Astrovirus Not Detected (NotDetected); Campylobacter Not Detected (NotDetected); Clostridium Difficile A/B, PCR Not Detected (NotDetected); Cryptosporidium Not Detected (NotDetected); Cyclospora Cayetanesis Not Detected (NotDetected); Entamoeba histolytica Not Detected (NotDetected); Enteroaggregative E coli Not Detected (NotDetected); Enteropathogenic E coli Not Detected (NotDetected); Enterotoxigenic E coli Not Detected (NotDetected); Giardia lamblia Not Detected (NotDetected); Norovirus Not Detected (NotDetected); Plesimonas Shigalloides, PCR Not Detected (NotDetected); Rotavirus A Not Detected (NotDetected); Salmonella, PCR Not Detected (NotDetected); Sapovirus Not Detected (NotDetected); Shiga-like toxin E coli Not Detected (NotDetected); Shigella Enterovasive E coli Not Detected (NotDetected); Vibrio Cholerae Not Detected (NotDetected); Vibrio, PCR Not Detected (NotDetected); Yersinia Entercolitica, PCR Not Detected (NotDetected)
== END 2024-12-04 23:59 | disposition home or self-care (01) ==
LOC: LAB.DROPOF 12-07 10:34
PROVIDERS: PCP Internal Medicine; Visit Provider Internal Medicine
DX: K52.9 Noninfective gastroenteritis and colitis, unspecified (principal)
CPT/HCPCS: 87506

== ENCOUNTER 2025-01-25 10:30 | Outpatient (CLI) | payer MEDICARE, MEDICAID, SELFPAY ==
[2025-01-25 17:43] LABS: C-Reactive Protein 8.3 mg/L (0-4)
[2025-01-25 17:49] LABS: Erythrocyte Sedimentation Rate 10 mm/hr (0-30)
== END 2025-01-25 23:59 | disposition home or self-care (01) ==
LOC: LAB.DROPOF 01-26 08:38
PROVIDERS: PCP Internal Medicine; Visit Provider Internal Medicine
DX: M15.0 Primary generalized (osteo)arthritis (principal); J45.909 Unspecified asthma, uncomplicated; G30.9 Alzheimer's disease, unspecified; F02.80 Dementia in other diseases classified elsewhere, unspecified severity, without behavioral disturbance, psychotic disturbance, mood disturbance, and anxiety; E78.5 Hyperlipidemia, unspecified; I10 Essential (primary) hypertension; M47.812 Spondylosis without myelopathy or radiculopathy, cervical region; S16.1XXA Strain of muscle, fascia and tendon at neck level, initial encounter; R29.898 Other symptoms and signs involving the musculoskeletal system; K21.9 Gastro-esophageal reflux disease without esophagitis; R42 Dizziness and giddiness; R25.1 Tremor, unspecified
CPT/HCPCS: 85651; 86140

== ENCOUNTER 2025-01-27 10:20 | Outpatient (CLI) | payer MEDICARE, MEDICAID, SELFPAY ==
[2025-01-27 16:58] LABS: Albumin Level 4.5 g/dl (3.5-5.0); Chloride 103 mmol/L (98-107); Potassium 4.6 mmoL/L (3.5-5.1); Sodium 139 mmol/L (136-145)
[2025-01-27 17:00] LABS: Alanine Aminotransferase 17 U/L (12-78); Blood Urea Nitrogen 15 mg/dl (7-17); Estimated Glomerular Filt Rate 68 ml/min (>60); GFR (African American) 82 ML/MIN (>60)
[2025-01-27 17:01] LABS: Alkaline Phosphatase 105 U/L (38-126); Anion Gap 13.6 mEq/L (5-15); Aspartate Amino Transferase 26 U/L (14-36); Bilirubin,Total 0.4 mg/dl (0.2-1.3); Calcium 9.7 mg/dl (8.4-10.2); Carbon Dioxide 27 mmol/L (22.0-30.0); Chol/HDL Ratio 2.8 (1-3.5); Cholesterol 155 mg/dl (140-200); Globulin 2.2 g/dL (1.3-3.2); Glucose 80 mg/dl (74-100); HDL Cholesterol 56 mg/dl (40-60); Total Protein,Serum 6.7 g/dl (6.3-8.2); Triglycerides 156 mg/dl (30-150); VLDL Cholesterol 31 mg/dL (0-40)
[2025-01-27 17:12] LABS: Direct LDL Cholesterol 73.98 mg/dL (100-129)
== END 2025-01-27 23:59 | disposition home or self-care (01) ==
LOC: LAB.DROPOF 01-28 11:12
PROVIDERS: PCP Internal Medicine; Visit Provider Internal Medicine
DX: E78.5 Hyperlipidemia, unspecified (principal); I10 Essential (primary) hypertension; G30.9 Alzheimer's disease, unspecified; F02.80 Dementia in other diseases classified elsewhere, unspecified severity, without behavioral disturbance, psychotic disturbance, mood disturbance, and anxiety
CPT/HCPCS: 80053; 80061

== ENCOUNTER 2025-02-22 00:15 | Emergency (ER) | payer MEDICARE, MEDICAID, SELFPAY ==
--- NOTE | 2025-02-22 00:35 | CT_ITS ---
PROCEDURE INFORMATION: Exam: CT Lumbar Spine Without Contrast Exam date and time: 02/22/2025 1:01 AM Age: 84 years old Clinical indication: Injury or trauma; Fall; Blunt trauma (contusions or hematomas); Additional info: Ground level fall lumbar back pain TECHNIQUE: Imaging protocol: Computed tomography of the lumbar spine without contrast. Radiation optimization: All CT scans at this facility use at least one of these dose optimization techniques: automated exposure control; mA and/or kV adjustment per patient size (includes targeted exams where dose is matched to clinical indication); or iterative reconstruction. COMPARISON: CT LUMBAR SPINE WO CON 02/22/2025 1:01 AM FINDINGS: Bones/joints: There is a 13 degree levoconvex scoliosis of the lumbar spine centered at L3. Vertebral body heights are preserved. The patient is post laminectomy from T12 through L5, posterior fixation via pedicle screws at each level of side screws joined by vertical rods. The bones are generally osteopenic. Bony hypertrophy contributes to modicum of canal and neural foraminal narrowing. Evaluation of the canal is minimally limited by beam hardening artifact from the indwelling metallic surgical hardware Soft tissues: Unremarkable. 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
--- NOTE | 2025-02-22 00:35 | CT_ITS ---
PROCEDURE INFORMATION: Exam: CT Cervical Spine Without Contrast Exam date and time: 02/22/2025 12:58 AM Age: 84 years old Clinical indication: Injury or trauma; Fall; Blunt trauma; Additional info: Fall backwards TECHNIQUE: Imaging protocol: Computed tomography of the cervical spine without contrast. Radiation optimization: All CT scans at this facility use at least one of these dose optimization techniques: automated exposure control; mA and/or kV adjustment per patient size (includes targeted exams where dose is matched to clinical indication); or iterative reconstruction. COMPARISON: CT CERVICAL SPINE WO CON 06/17/2023 12:35 AM FINDINGS: Bones: Loss of normal curvature of the spine with degenerative spondylolisthesis. Coarse bony trabecular pattern suggestive of diffuse osteopenia. No evidence of acute compression fracture or deformity in the cervical spine. No acute fracture involving the vertebral bodies or their posterior elements. Discs/Spinal canal/Neural foramina: Moderately advanced chronic degenerative changes in the visualized cervical spine. Soft tissues: Pre-and paravertebral soft tissues are grossly normal. Chronic RIGHT mastoid effusion IMPRESSION: Chronic degenerative changes without an acute bony cervical spine injury or abnormality. COMMENTS: Recommend followup with MRI if clinically suspicion for discoligamentous/soft tissue or cord abnormality.
--- NOTE | 2025-02-22 00:35 | CT_ITS ---
PROCEDURE INFORMATION: Exam: CT Pelvis Without Contrast, Skeleton Exam date and time: 02/22/2025 1:03 AM Age: 84 years old Clinical indication: Injury or trauma; Fall; Blunt trauma (contusions or hematomas); Bilateral; Sacrum and coccyx; Additional info: Ground level fall, struck tailbone TECHNIQUE: Imaging protocol: Computed tomography of the pelvis without contrast. Exam focused on the skeleton. Radiation optimization: All CT scans at this facility use at least one of these dose optimization techniques: automated exposure control; mA and/or kV adjustment per patient size (includes targeted exams where dose is matched to clinical indication); or iterative reconstruction. COMPARISON: CT ABDOMEN PELVIS W CON 11/30/2024 4:23 PM FINDINGS: Bones/joints: There is unchanged posterior cortical deformity of the right iliac bone, possibly postsurgical. The bones are generally osteopenic. There is no evidence for acute fracture or dislocation. There is minimal degenerative joint space narrowing and osteophytosis about the hips. Postsurgical changes noted in the lumbar spine. Please correlate with the report for CT lumbar spine for more complete description Soft tissues: Unremarkable. IMPRESSION: Osteopenia and degenerative change in the pelvis. If there remains clinical suspicion for occult nondisplaced fracture, noncontrast MRI of the pelvis may be performed.
--- NOTE | 2025-02-22 00:35 | CT_ITS ---
PROCEDURE INFORMATION: Exam: CT Head Without Contrast Exam date and time: 02/22/2025 12:50 AM Age: 84 years old Clinical indication: Injury or trauma; Fall; Blunt trauma (contusions or hematomas); Additional info: Fall backwards struck back of head no thinners TECHNIQUE: Imaging protocol: Computed tomography of the head without contrast. Radiation optimization: All CT scans at this facility use at least one of these dose optimization techniques: automated exposure control; mA and/or kV adjustment per patient size (includes targeted exams where dose is matched to clinical indication); or iterative reconstruction. COMPARISON: CT HEAD/BRAIN WO CON 06/17/2023 12:33 AM FINDINGS: Brain: Chronic microvascular ischemic disease without acute intraparenchymal hemorrhage and no obvious acute ischemic stroke. No intra-or extra-axial fluid collection, no supra-or infratentorial mass, no mass effect or midline shift. Cerebral ventricles: Mildly dilated ventricles, sulci and basal cisterns without evidence of hydrocephalus. Paranasal sinuses: No significant mucoperiosteal thickening in the visualized paranasal sinuses. Mastoid air cells: Chronic RIGHT mastoid effusion. Bones: Visualized skull bones are grossly normal. Soft tissues: Preseptal thickening in the eyelids bilaterally. Partially calcific pannus/hypertrophy of the transverse ligament posterior to the dens. IMPRESSION: 1. Chronic microvascular ischemic disease and generalized atrophy without acute intracranial abnormality. 2. No evidence of acute hemorrhage, mass lesion or obvious acute ischemic infarction.
[2025-02-22 00:38] VITALS: BP 166/77; PULSE 58; RESP 18; TEMP 36.7; O2SAT 98; BMI 26.5
--- NOTE | 2025-02-22 00:51 | ED_ITS ---
Discharge Plan Disposition Patient Disposition: Home, Self-Care Condition: Good Prescriptions Prescriptions: No Action diclofenac sodium 1 % gel 4 g topical QID PRN (Reason: Arthritis pain of knee) Qty: 100 5RF Rx Instructions: apply to single knee, ankle, foot; for foot includes sole/toes/top of foot memantine 10 mg tablet 10 mg PO BID Qty: 180 1RF levalbuterol HCl 1.25 mg/3 mL solution for nebulization See Rx Instructions .ROUTE .COMPLEX Qty: 270 1RF Dose Instruction: INHALE THE CONTENTS OF 1 VIAL VIA NEBULIZER THREE TIMES DAILY NEEDED FOR ASTHMA Rx Instructions: INHALE THE CONTENTS OF 1 VIAL VIA NEBULIZER THREE TIMES DAILY NEEDED FOR ASTHMA simvastatin 20 mg tablet See Rx Instructions .ROUTE .COMPLEX Qty: 90 1RF Dose Instruction: TAKE ONE TABLET BY MOUTH EVERY DAY AT BEDTIME Rx Instructions: TAKE ONE TABLET BY MOUTH EVERY DAY AT BEDTIME primidone 250 mg tablet See Rx Instructions .ROUTE .COMPLEX Qty: 90 1RF Dose Instruction: TAKE ONE TABLET BY MOUTH EVERY DAY AT BEDTIME Rx Instructions: TAKE ONE TABLET BY MOUTH EVERY DAY AT BEDTIME losartan 100 mg tablet See Rx Instructions .ROUTE .COMPLEX Qty: 90 1RF Dose Instruction: TAKE ONE TABLET BY MOUTH EVERY DAY Rx Instructions: TAKE ONE TABLET BY MOUTH EVERY DAY pantoprazole 40 mg tablet,delayed release (DR/EC) See Rx Instructions .ROUTE .COMPLEX Qty: 90 1RF Dose Instruction: TAKE ONE TABLET BY MOUTH EVERY DAY Rx Instructions: TAKE ONE TABLET BY MOUTH EVERY DAY propranolol 60 mg tablet See Rx Instructions .ROUTE .COMPLEX Qty: 60 5RF Dose Instruction: TAKE ONE TABLET BY MOUTH TWICE DAILY Rx Instructions: TAKE ONE TABLET BY MOUTH TWICE DAILY gabapentin 300 mg capsule 600 mg PO HS Qty: 60 2RF nitrofurantoin macrocrystal 100 mg capsule 100 mg PO Q12H 5 Days Qty: 10 0RF Rx Instructions: must administer with a meal/food Referrals Follow up/Referrals: Dg Kang MD [Primary Care Provider, Medical] - See instructions Activity Restrictions/Add. Instructions Additional Instructions/Restrictions: You were evaluated in the ER and are believed to be appropriate for discharge at this time. Continue home medications as previously prescribed. Make an appointment with your primary care doctor for reevaluation in 2 to 3 days. Return to the ER with any new, worsening, or otherwise concerning symptoms. Clinical Impressions Clinical Impression: Fall, Strain of lumbar paraspinal muscle Print Language Print Language: Singaporean Discharge ED Provider: Jozef Joseph General Adult HPI General Chief complaint: Fall Stated complaint: Fell having back pain Time Seen by Provider: 02/22/25 00:35 Mode of Arrival: Wheelchair Source of Information: Patient and Relative Description of Symptoms (Recalled from ER Triage Doc. by RN): Patient to ED in wheelchair with complaints of fall approx 1830. Family states who witnessed fall that patient was walking across the street with use of rolator when she picked up walker to travel over divot in road when she lost balance and fell backwards landing on back injuring low back, and hitting back of head. Patient complains of headache and lower back pain. Pt denies LOC/nausea/vomiting. Denies blood thinner use. History of Present Illness HPI narrative: 84-year-old female who is not on blood thinners but does have a history of hypertension, hyperlipidemia, Alzheimer's, TIA presents to the ER after a fall. Patient reports she was using her rollator to cross the street when she lost her balance falling backwards striking the back of the head and causing pain to the low back and tailbone. She is complaining primarily of low back pain but no numbness, tingling, or weakness. Patient also complains of mild headache. She denies loss of consciousness, no blood thinners, no vomiting, no neurologic deficits. Patient reports no other injuries, complaints, or concerns. No vision changes. Related Data Previous Rx's ?Medication ?Instructions ?Recorded diclofenac sodium 1 % topical gel 4 g topical QID PRN Arthritis pain 04/29/24 of knee #100 grams memantine 10 mg tablet 10 mg PO BID #180 tabs 07/29 levalbuterol HCl 1.25 mg/3 mL See Rx Instructions .Rou te 09/25/24 solution for nebulization .COMPLEX #270 mL losartan 100 mg tablet See Rx Instructions .Route 0 09/28/24 .COMPLEX #90 tabs primidone 250 mg tablet See Rx Instructions .Route 0 09/28/24 .COMPLEX #90 tabs simvastatin 20 mg tablet See Rx Instructions .Route 0 09/28/24 .COMPLEX #90 tabs pantoprazole 40 mg tablet,delayed See Rx Instructions .Route 10/30/24 release .COMPLEX #90 tabs propranolol 60 mg tablet See Rx Instructions .Route 0 2/07/25 .COMPLEX #60 tabs gabapentin 300 mg capsule 600 mg (2 x 300 mg) PO HS #6 0 caps 11/27/24 nitrofurantoin macrocrystal 100 mg 100 mg PO Q12H 5 da ys #10 caps 12/02/24 capsule Allergies Allergy/AdvReac Type Severity Reaction Status Date / Time glucosamine Allergy Unknown BOWELS Verified 01/27/25 09:58 BLEEDING Sulfa (Sulfonamide Allergy Unknown Verified 01/27/25 09:58 Antibiotics) donepezil Allergy Verified 01/27/25 09:58 Penicillins Allergy Verified 01/27/25 09:58 sulfamethoxazole AdvReac Verified 01/27/25 09:58 PFS PFS Disclaimer: The information contained in this section may have been updated after the patient was seen, as this information can be updated by other users. 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 Smoking Status: Never smoker alcohol intake: never substance use type: denies use current occupational status: other Travel in the last 8 weeks?: None household members: none housing: house current occupational exposures/hazards: No caffeine: No Have you lived/traveled outside US in past 30 days?: No Contact w/someone who lives/traveled outside US past 30 days?: No Exposure to someone with infectious disease in past 14 days?: No Do you have a fever (greater than 100.4 F or 38 C)?: No Have you tested positive for COVID-19?: No Exposed to someone with COVID-19 in past 14 days?: No Do you have a sore throat?: No Do you have a cough?: No Do you have any weakness?: No Do you have any diarrhea?: No Are you experiencing any unusual bleeding?: No Do you have any muscle aches/pain?: Yes Do you have any abdominal pain?: No Are you experiencing loss of taste or smell?: No Other Medical History Have you received the Flu Vaccine for this season: Yes Have you received the Pneumonia Vaccine: Yes ROS Obtained: Yes Systems reviewed as appropriate & no additional complaints except as documented Per HPI Physical Exam General General appearance: alert and in no apparent distress Head Head exam: atraumatic, normocephalic and normal inspection Eye Eye exam: Present PERRL and EOMI ENT ENT exam: Present mucous membranes moist Neck Neck exam: Present normal inspection and full ROM; Absent tenderness Chest Chest inspection: Present symmetric chest wall rise Respiratory Respiratory exam: Present normal lung sounds bilaterally; Absent respiratory distress, wheezes or stridor Cardiovascular Cardiovascular exam: Present regular rate and normal rhythm Abdominal Exam Abdominal exam: Present soft; Absent distention or tenderness Extremities Exam Extremities exam: Present full ROM; Absent edema Back Exam Back exam: Present normal inspection and paraspinal tenderness (Bilateral lumbar paraspinal tenderness); Absent vertebral tenderness (No deformity or step-off) Neurological Exam Neurological exam: Present alert, oriented X3 and CN II-XII intact; Absent motor sensory deficit Psychiatric Psychiatric exam: Present normal affect and normal mood Skin Skin exam: Present warm and dry Medical Decision Making Medical Records Medical records reviewed: Yes I reviewed the patient's medical records. Screening: Per USPSTF and CDC recommendations, given the prevalence of disease in our region, it is our hospital?s policy to screen for HIV and viral Hepatitis for all patients aged 18 and over and those with ongoing risk factors. Dano Inquiry Pt receiving controlled substance: No Vital Signs: 02/22/25 00:38 02/22/25 02:01 02/22/25 02:30 Temperature 98.1 F Temperature Source Temporal Artery Scan Pulse Rate 59 L 59 L Pulse Rate [Left] 58 L Respiratory Rate 18 Blood Pressure Blood Pressure [Right Arm] 166/77 H Blood Pressure Mean Blood Pressure Mean [Right Arm] 106 Blood Pressure Source [Right Arm] Automatic Cuff Blood Pressure Position [Right Arm] Sitting 02 Sat by Pulse Oximetry 98 98 97 Oxygen Delivery Method Room Air 02/22/25 02:30 Temperature Temperature Source Pulse Rate Pulse Rate [Left] Respiratory Rate Blood Pressure 126/76 Blood Pressure [Right Arm] Blood Pressure Mean 92 Blood Pressure Mean [Right Arm] Blood Pressure Source [Right Arm] Blood Pressure Position [Right Arm] 02 Sat by Pulse Oximetry Oxygen Delivery Method Orders (Tests/Meds): ORDERS Category Date Time Status CT bony pelvis Stat Cat Scan 02/22/25 00:[address] cervical spine wo con Stat Cat Scan 02/22/25 00:[address] head/brain wo con Stat Cat Scan 02/22/25 00:[address] lumbar spine wo con Stat Cat Scan 02/22/25 00:35 Completed Medical Decision Narrative: In summary, this 84-year-old female with comorbidities described in the HPI presents to the emergency department today with concerns of possible injury after fall specifically complaining of headache and low back pain but no neurologic deficits. On initial evaluation patient is hemodynamically stable, afebrile, GCS 15, no neurologic deficits, no tenderness of the cervical spine, no obvious injury to the back of the head despite patient reporting striking it, vision at baseline, patient has lumbar paraspinal muscle tenderness but no deformity or step-off and no vertebral tenderness. Differential diagnosis inc ludes but is not limited to intracranial bleed, skull fracture, C-spine injury, lumbar spine injury, tailbone injury, patient has no red flag symptoms for cord injury. Based on these concerns, I ordered CT imaging. Patient did not require any pain medications. No medications administered in the ER. CT head personally interpreted does not demonstrate any acute intracranial bleed, mass, or midline shift, CT C-spine demonstrates degenerative changes but no acute injury on my personal interpretation. See radiology reads for final interpretation. CT lumbar spine and CT pelvis also do not demonstrate acute injury. On reassessment patient is resting comfortably and is appropriate for discharge at this time. No neurologic deficits. I believe she is appropriate for discharge. Patient and family are comfortable with this plan. Patient and family were given instructions on continued symptomatic monitoring and management, follow-up instructions, and strict return precautions for the ER. Efrem silver indicated understanding and the patient was discharged in stable condition. Critical Care Critical Care Time Critical Care Time: No
[2025-02-22 02:01] VITALS: PULSE 59; O2SAT 98
[2025-02-22 02:30] VITALS: BP 126/76; PULSE 59; O2SAT 97
[2025-02-22 03:00] VITALS: BP 152/80; PULSE 59; O2SAT 96
[2025-02-22 03:18] VITALS: BP 152/80; PULSE 59; RESP 18; TEMP 36.7; O2SAT 96
== END 2025-02-22 03:20 | disposition home or self-care (01) ==
PROVIDERS: Emergency Provider Emergency Medicine; PCP Internal Medicine
DX: S39.012A Strain of muscle, fascia and tendon of lower back, initial encounter (principal); W18.30XA Fall on same level, unspecified, initial encounter
CPT/HCPCS: 70450; 72125; 72131; 72192; 99285

== ENCOUNTER 2025-02-23 11:45 | Outpatient (CLI) | payer MEDICARE, MEDICAID, SELFPAY ==
[2025-02-23 14:12] LABS: Erythrocyte Sedimentation Rate 5 mm/hr (0-30)
[2025-02-23 14:20] LABS: C-Reactive Protein 45.5 mg/L (0-4)
--- OUTSIDE RECORDS SUMMARY | 2025-02-24 12:34 | XMS_ITS ---
Author Organization Unknown TREATMENT PLAN Planned Care Start Date Provider Encounter for Check-up [id number] [facility]
== END 2025-02-23 23:59 | disposition home or self-care (01) ==
LOC: LAB.DROPOF 02-24 12:33
PROVIDERS: PCP Internal Medicine; Visit Provider Internal Medicine
DX: M31.6 Other giant cell arteritis (principal)
CPT/HCPCS: 85651; 86140

== ENCOUNTER 2025-03-02 12:50 | Emergency (ER) | payer MEDICARE, MEDICAID, SELFPAY ==
--- OUTSIDE RECORDS SUMMARY | 2025-03-02 12:59 | XMS_ITS | Continuity of Care Document ---
Author Organization [facility] NEW Address [address] [place] [address] Assessment No assessment recorded. Plan of Treatment Reminders Order Date Submit Date Provider Last Modified By Organization Details Last Modified Time Details Appointments None record ed. Lab None record ed. Referral None record ed. Procedures None record ed. Surgeries None record ed. Imaging None record ed. Medication Orders None record ed. Patient TargetsNo targets recorded. Patient InstructionsNo instructions recorded. Reason for Referral None Reported. Problems Name Problem SNOMED Code Status Onset Date Resolution Date Notes Provider Name and Address Organization Details Recorded Time Sensorineural hearing loss [id number] Active 2023 RANDALL BOYER, AUD [address] [facility], [place], [address] , [facility] & [place] 11:09:07 Problem Notes None recorded. Procedures Surgical History Date Name Laterality Status Provider Name and Address Organization Details Recorded Time Back Surgery completed Corrie [facility] & [place] 02/02/2025 10:01:45 Total Hysterectomy completed [facility] - [facility] & [place] 02/02/2025 10:01:54 Colonoscopy completed [facility] - L PNT [facility] 02/02/2025 10:02:18 Imaging Results None recorded. Procedure Notes None recorded. Medical Equipment None Reported. Allergies Allergen ID Allergen Name Allergen Category Reaction Reaction Severity Criticality Documentation Date Start Date Code Code System Note Provider Name and Address Organization Details Recorded Time 512362 Substance with sulfonami de structure and antibacte rial mechanism of action (substanc e) medicatio n Not available Not available Not available 02/02/2025 39210 [id number] SNOMED [facility] [place] [facility] [place] 5 09:57:38 Medications Name Sig Start Date Stop Date Status Note LastModified by Organization Details LastModified Time celecoxib 200 mg capsule TAKE ONE CAPSULE BY MOUTH EVERY DAY active Not Available Not Available No t Available prednisone 20 mg tablet TAKE ONE TABLET BY MOUTH THREE TIMES DAILY active Not Available Not Available No t Available propranolol 60 mg tablet TAKE ONE TABLET BY MOUTH TWICE DAILY active Not Available Not Available No t Available acetaminoph en 500 mg tablet TAKE ONE TABLET BY MOUTH EVERY 6 HOURS NEEDED FOR moderate pain (4-6 ON pain scale) active Not Available Not Available No t Available primidone 250 mg tablet TAKE ONE TABLET BY MOUTH EVERY DAY AT BEDTIME active Not Available Not Available No t Available pantoprazol e 40 mg tablet,yasmani yed release TAKE ONE TABLET BY MOUTH EVERY DAY active Not Available Not Available No t Available simvastatin 20 mg tablet TAKE ONE TABLET BY MOUTH EVERY DAY AT BEDTIME active Not Available Not Available No t Available nitrofurant oin macrocrysta l 100 mg capsule TAKE ONE CAPSULE BY MOUTH EVERY TWELVE HOURS FOR 5 DAYS -- FINISH ALL MEDICINE -- --TAKE WITH MEALS/MIGUEL D-- 02/02 completed Not Available Not Available Not Available gabapentin 300 mg capsule TAKE TWO CAPSULES BY MOUTH EVERY DAY AT BEDTIME MAY CAUSE DROWSINES S active Not Available Not Available No t Available levalbutero l 1.25 mg/3 mL solution for nebulizatio n INHALE THE CONTENTS OF 1 VIAL VIA NEBULIZER THREE TIMES DAILY NEEDED FOR ASTHMA active Not Available Not Available No t Available losartan 100 mg tablet TAKE ONE TABLET BY MOUTH EVERY DAY active Not Available Not Available No t Available memantine 10 mg tablet TAKE ONE TABLET BY MOUTH TWICE DAILY active Not Available Not Available No t Available diclofenac 1 % topical gel APPLY 4 GRAMS TOPICALLY FOUR TIMES DAILY NEEDED ARTHRITIS KNEE PAIN, ankle, OR foot. FOR foot include THE sole/toes /top of foot. 02/02 completed Not Available Not Available Not Available Trelegy Ellipta 100 mcg-62.5 mcg-25 mcg powder for inhalation INHALE 1 PUFF BY MOUTH EVERY DAY active Not Available Not Available No t Available Vitals Date Recorded Body height Body mass index (BMI) Body weight Body temperature Heart rate Systolic blood pressure Diastolic blood pressure Provider Name and Address Organization Details Last Updated DateTime 5 152.4 cm 29.9 kg/m2 34315.6 3 g 97 [degF] 61 /min 142 mm[Hg] 84 mm[Hg] Corrie HARVEY [facility] & [place] 09:57:24 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 None recorded. Functional Status Question Answer Note LastModified by Organization D etails LastModified Time What is your level of alcohol consumption? None Information not available 02/02/2025 Mental Status None recorded. Family History Relationship Description Onset Age of this Age Resolved Age Notes LastModified by Organization Details LastModified Time Father Heart disease [email or web address] Not available 2024 10:00:25 Sister Heart disease Not available 2024 10:00:25 Sister Malignant neoplasm of skin of face [email or web address] Not available 10:01:10 Medical History Condition Response Arthritis Y Reflux/GERD Y Asthma Y Gynecological HistoryNo gynecological history recorded. Obstetrics History GPAL:G 0 P 0 0 0 0 Immunizations Vaccine Type Date Status Note Provider Nam e and Address Organization Details Recorded Time influenza, unspecified formulation 07/07/2024 completed [facility] [place] - [facility] & [place] 02/02/2025 09:59:26 Past Encounters Encounter ID Performer Location Encounter Start Date Encounter Closed Date Diagnosis/Indication Diagnosis SNOMED-CT Code Diagnosis ICD10 Code Diagnosis Note [id number] Adriane Alarcon MD [facility] [address] [place] [address] 02/02/2025 09:49:41 02/02/2025 10:41:53 Eye / vision finding [id number] H53.9 I have scheduled the patient for urgent right temporal artery biopsy. Informed consent was obtained. Risks and benefits of the procedure, including but not limited to, bleeding, infection, damage to surroundin g structures and ongoing symptoms were discussed. Standard of care efforts are taken to minimize risks. Typical hospital stay and recovery were reviewed. The typical postoperat kaylin pain regimen and avoidance of narcotics were discussed. The patient verbalized understand ing of the plan including the risks and benefits. Appropriat e preoperati ve testing as clinically indicated were ordered as a part of this patient's care. Erythrocyt e sedimentation rate above reference range [id number] R70.0 Health Concerns Section Related Observation LastModified by Organization Detai ls LastModified Time None Recorded Concern Status LastModified by Organization Details LastModified Time None Recorded Payers Encounter Date Sequence Insurance Name Policy Number Policy Patel Covered Member ID Patel Member ID Guarantor Name 02/02/2025 1 [employer] (MEDICARE REPLACEMENT/ ADVANTAGE - PPO) Kelley Hua [id number] 02/02/2025 2 MEDICAID-[facility] CHO[facility] - FFS/TRADITIO NAL Kelley LindKinney [id number] Notes Date Note Type Note Provider Name and Address Organization Details Recorded Time 02/02/2025 text/html 84 year old wogilda n referred for temporal artery biopsy. She has had visual changes in her right eye and elevated ESR. She was started on prednisone on 01/29. Adriane Alarcon MD [facility], [place], [address], [facility] [place] & [place] 02/02/2025 11:14:06 OBGyn Episode No OBEpisode recorded.
[2025-03-02 13:00] VITALS: BP 130/76; BP 132/71; PULSE 77; RESP 15; RESP 18; TEMP 36.9; O2SAT 95; BMI 28.0
--- OUTSIDE RECORDS SUMMARY | 2025-03-02 13:00 | XMS_ITS | Continuity of Care Document ---
Author Organization [facility] NEW Address [address] [place] [address] Assessment No assessment recorded. Plan of Treatment [...] Organization Details Recorded Time Sensorineural hearing loss 25130602 Active 2023 RANDALL BOYER, AUD [address] [facility], [place], [address] , [facility] & [place] 11:09:07 Problem Notes None recorded. Procedures Surgical History Date Name Laterality Status Provider Name and Address Organization Details Recorded Time Back Surgery completed Corrie [facility] & [place] 02/02/2025 10:01:45 Total Hysterectomy completed [facility] - [facility] & [place] 02/02/2025 10:01:54 Colonoscopy completed [facility] - L PNT [facility] 02/02/2025 10:02:18 Imaging Results None recorded. Procedure Notes None recorded. Medical Equipment None Reported. Allergies Allergen ID Allergen Name Allergen Category Reaction Reaction Severity Criticality Documentation Date Start Date Code Code System Note Provider Name and Address Organization Details Recorded Time 087443 Substance with sulfonami de structure and antibacte rial mechanism of action (substanc e) medicatio n Not available Not available Not available 02/02/2025 83463 8003 SNOMED [facility]rie Brown[facility] [place] [facility] 09:57:38 Medications Name Sig Start Date [...] mass index (BMI) Body weight Body temperature Oxygen saturation Oxygen saturation in Arterial blood by Pulse oximetry Heart rate Systolic blood pressure Diastolic blood pressure Provider Name and Address Organization Details Last Updated DateTime 5 152.4 cm 29.9 kg/m2 82195.6 3 g 98.1 [degF] 96 % 96 % 58 /min 124 mm[Hg] 66 mm[Hg] Ibeth Bonilla [facility] & [place] 13:39:52 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 None recorded. Functional Status Question Answer Note LastModified by Organization D etails LastModified Time What is your level of alcohol consumption? None Information not available 02/02/2025 Mental Status None recorded. Family History Relationship Description Onset Age of this Age Resolved Age Notes LastModified by Organization Details LastModified Time Father Heart disease [email or web address] Not available 2024 10:00:25 Sister Heart disease [email or web address] Not available 2024 10:00:25 Sister Malignant neoplasm of skin of face [email or web address] Not available 10:01:10 Medical History Condition Response Arthritis Y Reflux/GERD Y Asthma Y Gynecological HistoryNo gynecological history recorded. Obstetrics History GPAL:G 0 P 0 0 0 0 Immunizations Vaccine Type Date Status Note Provider Nam e and Address Organization Details Recorded Time influenza, unspecified formulation 07/07/2024 [facility] [place] 02/02/2025 09:59:26 Past Encounters Encounter ID Performer Location Encounter Start Date Encounter Closed Date Diagnosis/Indication Diagnosis SNOMED-CT Code Diagnosis ICD10 Code Diagnosis Note [id number] Adriane Alarcon MD [facility] [address] [place] [address] 02/02/2025 09:49:41 02/02/2025 10:41:53 Eye / vision finding 426748101 H53.9 I have scheduled the patient for [...] Erythrocyt e sedimentation rate above reference range 335567918 R70.0 [id number] Adriane Alarcon MD [facility] NEW [address] [place] [address] 02/22/2025 13:32:26 02/22/2025 14:31:21 Eye / vision finding 175537523 H53.9 Stable postop, no restrictio ns Erythrocyt e sedimentation rate above reference range 296496450 R70.0 Health Concerns Section Related Observation LastModified by Organization Detai ls LastModified Time None Recorded Concern Status LastModified by Organization Details LastModified Time None Recorded Payers Encounter Date Sequence Insurance Name Policy Number Policy Patel Covered Member ID Patel Member ID Guarantor Name 02/22/2025 1 [employer] (MEDICARE REPLACEMENT/ ADVANTAGE - PPO) Kelley Hua [id number] 02/22/2025 2 [facility] CHO[facility] - FFS/TRADITIO NAL Kelley Hua [id number] Notes Date Note Type Note Provider Name and Address Organization Details Recorded Time 02/22/2025 text/html S/P right tempor al artery biopsy. Pathology did not show any evidence of vasculitis. No complaints, has follow up with ophthalmology later today. Adriane Alarcon MD [address], [place], [address], [facility] & [place] 02/22/2025 14:23:30 OBGyn Episode No OBEpisode recorded.
--- OUTSIDE RECORDS SUMMARY | 2025-03-02 13:00 | XMS_ITS | Data Portability ---
Author Organization [place] - [facility] - [place] & [place] [facility] ADMIN Address [address] [place] [id number] Assessment No assessment recorded. Plan of Treatment [...] instructions recorded. Reason for Referral None Reported. Results Created Date Observation Date Name Description Value Unit Range Abnormal Flag Note LastModifiedBy Organization Detail LastModifiedTime 02/03/2002/02/2025 CBC NO DIFF (HEMO GRAM) WBC 13.7 K/uL 4.0-10 .5 high Not Available [facility] ([facility]) [address] [place], [address], 02/02/2025 12:05:25 02/03/20 25 02/02/2025 CBC NO DIFF (HEMO GRAM) RBC 4.2 M/mm3 4.2-6. 4 Not Available [facility] ([facility]) [address] [place], [address], 02/02/2025 12:05:25 02/03/20 25 02/02/2025 CBC NO DIFF (HEMO GRAM) HGB 12.5 gm/dL 12.5-1 6.0 Not Available [facility] ([facility]) [address] [place], [address], 02/02/2025 12:05:25 02/03/20 25 02/02/2025 CBC NO DIFF (HEMO GRAM) HCT 38.3 % 37.0-4 7.0 Not Available [facility]) [address] , [place], [address], 02/02/2025 12:05:25 02/03/2002/02/2025 CBC NO DIFF (HEMO GRAM) MCV 92.1 fL 78-100 Not Available [facility] ([facility]) [address], [place], [address], 02/02/2025 12:05:25 02/03/20 25 02/02/2025 CBC NO DIFF (HEMO GRAM) MCH 30.0 pg 27-31 Not Available [facility] ([facility]) [address], [place], [address], 02/02/2025 12:05:25 02/03/20 25 02/02/2025 CBC NO DIFF (HEMO GRAM) MCHC 32.6 g/dL 32-36 Not Available [facility] ([facility]) [address], [place], [address], 02/02/2025 12:05:25 02/03/20 25 02/02/2025 CBC NO DIFF (HEMO GRAM) RDW 13.9 % 11.5-1 4.0 Not Available [facility] ([facility]) [address], [place], [address], 02/02/2025 12:05:25 02/03/20 25 02/02/2025 CBC NO DIFF (HEMO GRAM) platelet count 237 K/uL 150-45 0 Not Available [facility] ([facility]) [address], [place], [address], 02/02/2025 12:05:25 02/03/20 25 02/02/2025 CBC NO DIFF (HEMO GRAM) MPV 10.6 fL 6-9.5 high Not Available [facility] ([facility]) [address], [place], [address], 02/02/2025 12:05:25 02/03/20 25 02/02/2025 CBC NO DIFF (HEMO GRAM) manual differential NO Not Available [facility] ([facility]) [address] , [place], [address], 02/02/2025 12:05:25 02/03/20 25 02/02/2025 BASIC METAB OLIC PANEL sodium 138 mmol/ L 136-14 5 Not Available [facility] ([facility]) [address], [place], [address], 02/02/2025 12:32:23 02/03/20 25 02/02/2025 BASIC METAB OLIC PANEL potassium 3.9 mmol/ L 3.6-5. 0 Not Available [facility] ([facility]) [address], [place], [address], 02/02/2025 12:32:23 02/03/20 25 02/02/2025 BASIC METAB OLIC PANEL chloride 103 mmol/ L 98-107 Not Available [facility] ([facility]) [address], [place], [address], 02/02/2025 12:32:23 02/03/20 25 02/02/2025 BASIC METAB OLIC PANEL carbon dioxide 29.4 mmol/ L 21.0-3 2.0 Not Available [facility] ([facility]) [address], [place], [address], 02/02/2025 12:32:23 02/03/20 25 02/02/2025 BASIC METAB OLIC PANEL anion gap 9.5 Not Available [facility] ([facility]) [address] [place], [address], 02/02/2025 12:32:23 02/03/20 25 02/02/2025 BASIC METAB OLIC PANEL glucose 114 mg/dL 70-120 Not Available [facility] ([facility]) [address], [place], [address], 02/02/2025 12:32:23 02/03/20 25 02/02/2025 BASIC METAB OLIC PANEL BUN 17 mg/dL 7-18 Not Available [facility] ([facility]) [address], [place], [address], 02/02/2025 12:32:23 02/03/20 25 02/02/2025 BASIC METAB OLIC PANEL creatinine 1.1 mg/dL 0.6-1. 3 Not Available [facility] ([facility]) [address], [place], [address], 02/02/2025 12:32:23 02/03/20 25 02/02/2025 BASIC METAB OLIC PANEL glomerular filtration rate 49 mlper min 60- low GFR LIMIT ATION : The eGFR equat ion CKD-E PI 2020 is not appli cable for pedia tric patie nts or great er than 90 years of age. The follo wing condi tions may alter the GFR resul t: extre mes in body size, malnu triti on or obesi ty, skele tod muscl e disea se, parap legia or quadr ipleg ia, veget dimitri diet or rapid ly velazco ing kiney funct ion. Not Available [facility] ([facility]) [address] , [place], [address], 02/02/2025 12:32:23 02/03/20 25 02/02/2025 BASIC METAB OLIC PANEL osmolality (calculated) 290 mOsm/ kg 275-30 1 OSMOL ALITY IS A CALCU LATIO N UTILI ZING THE SERUM /PLAS MA SODIU M, GLUCO SE AND UREA NITRO GEN (BUN) LEVEL S. FOR THE MOST ACCUR ATE RESUL T A MEASU RED SERUM OSMOL ALITY IS SUGGE STED. Not Available [facility] ([facility]) [address] , [place], [address], 02/02/2025 12:32:23 02/03/20 25 02/02/2025 BASIC METAB OLIC PANEL calcium 9.6 mg/dL 8.5-10 .5 Not Available [facility] ([facility]) [address], [place], [address], 02/02/2025 12:32:23 03/17/20 24 03/17/2024 audio gram No observ ation record ed. [email or web address] Not Available 2023 14:19:46 Result Notes None recorded. Problems Name Problem SNOMED Code Status Onset Date Resolution Date Notes Provider Name and Address Organization Details Recorded Time Sensorineural hearing loss 92225018 Active 2023 MIRNA MURILLO [address], [place], [address] , [place] - [facility] & [place] 4 11:09:07 Problem Notes None recorded. Procedures Surgical History Date Name Laterality Status Provider Name and Address Organization Details Recorded Time Back Surgery completed Corrie HARVEY - [facility] & [place] 02/02/2025 10:01:45 Total Hysterectomy completed Corriemarj HARVEY - [facility]NT [facility] & [place] 02/02/2025 10:01:54 Colonoscopy completed Corriemarj HARVEY - L PNT [facility] & [place] 02/02/2025 10:02:18 Imaging Results None recorded. Procedure Notes None recorded. Medical Equipment None Reported. Allergies Allergen ID Allergen Name Allergen Category Reaction Reaction Severity Criticality Documentation Date Start Date Code Code System Note Provider Name and Address Organization Details Recorded Time 317157 Substance with sulfonami de structure and antibacte rial mechanism of action (substanc e) medicatio n Not available Not available Not available 02/02/2025 28539 8003 SNOMED Corrie barros, [place] - [facility] & [place] 5 09:57:38 Medications Name Sig Start Date [...] Updated DateTime 5 152.4 cm 29.9 kg/m2 74246.6 3 g 97 [degF] 61 /min 142 mm[Hg] 84 mm[Hg] Corrie Kem HARVEY - [place] - [place] [facility] [place] 5 09:57:24 Date Recorded Body height Body mass index (BMI) Body weight Body temperature Oxygen saturation Oxygen saturation in Arterial blood by Pulse oximetry Heart rate Systolic blood pressure Diastolic blood pressure Provider Name and Address Organization Details Last Updated DateTime 152.4 cm 29.9 kg/m2 97312.6 3 g 98.1 [degF] 96 % 96 % 58 /min 124 mm[Hg] 66 mm[Hg] Ibeth Bonilla [facility] & [place] 13:39:52 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 None recorded. Functional Status Question Answer Note LastModified by Organization D etails LastModified Time What is your level of alcohol consumption? None [email or web address] Information not available 02/02/2025 Mental Status None recorded. Family History Relationship Description Onset Age of this Age Resolved Age Notes LastModified by Organization Details LastModified Time Father Heart disease [email or web address] Not available 2024 10:00:25 Sister Heart disease [email or web address] Not available 2024 10:00:25 Sister Malignant neoplasm of skin of face [email or web address] Not available 10:01:10 Medical History Condition Response Arthritis Y Reflux/GERD Y Asthma Y Gynecological HistoryNo gynecological history recorded. Obstetrics History GPAL:G 0 P 0 0 0 0 Immunizations Vaccine Type Date Status Note Provider Nam e and Address Organization Details Recorded Time influenza, unspecified formulation 07/07/2024 completed [facility] [place] 02/02/2025 09:59:26 Past Encounters Encounter ID Performer Location Encounter Start Date Encounter Closed Date Diagnosis/Indication Diagnosis SNOMED-CT Code Diagnosis ICD10 Code Diagnosis Note [id number] MIRNA MURILLO [facility] [address] [place] [address] 03/17/2024 09:34:57 03/17/2024 09:57:42 Sensorineural hearing loss 22984954 H90.3 [id number] MIRNA MURILLO [facility] [address] [place] [address] 05/13/2024 11:41:32 05/13/2024 12:05:45 Sensorineural hearing loss 73190196 H90.3 [id number] Adriane Alarcon MD [facility] [address] [place] [address] 02/02/2025 09:49:41 02/02/2025 10:41:53 Eye / vision finding 402263987 H53.9 I have scheduled the patient for [...] Erythrocyt e sedimentation rate above reference range 059920433 R70.0 [id number] Adriane Alarcon MD [facility] NEW [address] [place] [address] 02/22/2025 13:32:26 02/22/2025 14:31:21 Eye / vision finding 375263279 H53.9 Stable postop, no restrictio ns Erythrocyt e sedimentation rate above reference range 083719146 R70.0 Health Concerns Section Related Observation LastModified by Organization Detai ls LastModified Time None Recorded Concern Status LastModified by Organization Details LastModified Time None Recorded Advance Directives Directive None Recorded Payers Insurance Date Sequence Insurance Name Policy Number Policy Patel Covered Member ID Patel Member ID Guarantor Name 02/22/2025 2 [place] [employer] [facility] [place] [facility] [place] - FFS/TRADITIO NAL Kelley Hua [id number] 02/22/2025 1 [employer] (MEDICARE REPLACEMENT/ ADVANTAGE - PPO) Kelley Hua [id number] Notes Date Note Type Note Provider Name and Address Organization Details Recorded Time 03/17/2024 text/html Ms. Hua was seen today for an audiologic evaluation due to long-standing, asymmetrical hearing loss. Ms. Hua reports severe hearing loss in the RE for approx 60 years. She reports that her hearing in the LE has gradually declined over time. She denies tinnitus, dizziness, drainage, aural fullness/pressure, and excessive noise exposure. Otoscopic inspection was unremarkable bilaterally. Audiometric testing revealed a mild, sloping to moderately severe, mid through high freq SNHL in the LE with fair word rec scores. Findings in the RE revealed a moderately severe, sloping to profound SNHL from the low through high freq; no functional word recognition was found. 1-Discussed findings with Ms. Hua. 2-Rec hearing aid for the LE only; she will consider. 3-F/u hearing testing annually. RANDALL BOYER, MIRNA [address], [place], [address], [facility] & [place] 03/17/2024 11:11:36 05/13/2024 text/html Ms. Hua was seen today for a hearing aid fitting in the LE. She was fit with Sarsys 1000 R CABRERA hearing aid. F/u prn. RANDALL BOYER, MIRNA [address], [place], [address], [facility] & [place] 05/13/2024 12:10:18 02/02/2025 text/html 84 year old woma n referred for temporal artery biopsy. She has had visual changes in her right eye and elevated ESR. She was started on prednisone on 01/29. Adriane Alarcon MD [address], [place], [address], [facility] & [place] 02/02/2025 11:14:06 02/22/2025 text/html S/P right tempor al artery biopsy. Pathology did not show any evidence of vasculitis. No complaints, has follow up with ophthalmology later today. Adriane Alarcon MD [address], [place], [address], [facility] & [place] 02/22/2025 14:23:30 OBGyn Episode No OBEpisode recorded.
--- NOTE | 2025-03-02 13:10 | CT_ITS ---
FINAL REPORT TECHNIQUE: Axial images were obtained of the lumbar spine by computed tomography. Coronal and sagittal reconstruction process performed. This study was performed with techniques to keep radiation doses as low as reasonably achievable (ALARA). Individualized dose reduction techniques using automated exposure control or adjustment of mA and/or kV according to the patient''s size were employed. CLINICAL HISTORY: low back pain COMPARISON: 02/22/2025 FINDINGS: There is extensive posterior fusion hardware bilaterally from L5-S1. There is mild lumbar scoliosis convex to the left measuring 15 degrees. There is significant endplate hypertrophy at T12-L1 with mild to moderate bilateral neuroforaminal narrowing. There is endplate hypertrophy eccentric to the right at L3-4 with moderate right neuroforaminal narrowing. There is also extensive endplate hypertrophy at L5-S1 eccentric to the left with high-grade left neuroforaminal narrowing. IMPRESSION: Degenerative and postsurgical changes. Findings are stable from 1 week prior. Reviewed, Interpreted and Dictated by Gerardo Kim MD Transcribed by Nohelia Marmolejo Authenticated and [facility]
--- NOTE | 2025-03-02 13:10 | CT_ITS ---
FINAL REPORT TECHNIQUE: Axial images were obtained of the thoracic spine by computed tomography. Coronal and sagittal reconstruction process performed. This study was performed with techniques to keep radiation doses as low as reasonably achievable (ALARA). Individualized dose reduction techniques using automated exposure control or adjustment of mA and/or kV according to the patient's size were employed. CLINICAL HISTORY: back pain FINDINGS: There is advanced disc space narrowing throughout the thoracic spine. There is prominent anterior osteophyte formation in the mid and lower thoracic spine. There is a nondisplaced fracture through the anterior/inferior T11 vertebra well-seen on images 49 through 57 of series 1002. This appears to be acute or subacute. There is prominent osteophyte formation eccentric to the left at the T10-11 level with mild spinal canal compromise and mild left lateral recess stenosis. IMPRESSION: Oblique nondisplaced fracture through the anterior/inferior T11 vertebra. Prominent posterior osteophyte formation at T10-11 with spinal canal compromise. Reviewed, Interpreted and Dictated by Gerardo Kim MD Transcribed by Nohelia Marmolejo Authenticated and [facility]
--- NOTE | 2025-03-02 13:13 | ED_ITS ---
Discharge Plan Disposition Patient Disposition: Xfer Other Prescriptions Prescriptions: No Action diclofenac sodium 1 % gel 4 g topical QID PRN (Reason: Arthritis pain of knee) Qty: 100 5RF Rx Instructions: apply to single knee, ankle, foot; for foot includes sole/toes/top of foot levalbuterol HCl 1.25 mg/3 mL solution for nebulization See Rx Instructions .ROUTE .COMPLEX Qty: 270 1RF Dose Instruction: INHALE THE CONTENTS OF 1 VIAL VIA NEBULIZER THREE TIMES DAILY NEEDED FOR ASTHMA Rx Instructions: INHALE THE CONTENTS OF 1 VIAL VIA NEBULIZER THREE TIMES DAILY NEEDED FOR ASTHMA simvastatin 20 mg tablet See Rx Instructions .ROUTE .COMPLEX Qty: 90 1RF Dose Instruction: TAKE ONE TABLET BY MOUTH EVERY DAY AT BEDTIME Rx Instructions: TAKE ONE TABLET BY MOUTH EVERY DAY AT BEDTIME primidone 250 mg tablet See Rx Instructions .ROUTE .COMPLEX Qty: 90 1RF Dose Instruction: TAKE ONE TABLET BY MOUTH EVERY DAY AT BEDTIME Rx Instructions: TAKE ONE TABLET BY MOUTH EVERY DAY AT BEDTIME losartan 100 mg tablet See Rx Instructions .ROUTE .COMPLEX Qty: 90 1RF Dose Instruction: TAKE ONE TABLET BY MOUTH EVERY DAY Rx Instructions: TAKE ONE TABLET BY MOUTH EVERY DAY pantoprazole 40 mg tablet,delayed release (DR/EC) See Rx Instructions .ROUTE .COMPLEX Qty: 90 1RF Dose Instruction: TAKE ONE TABLET BY MOUTH EVERY DAY Rx Instructions: TAKE ONE TABLET BY MOUTH EVERY DAY propranolol 60 mg tablet See Rx Instructions .ROUTE .COMPLEX Qty: 60 5RF Dose Instruction: TAKE ONE TABLET BY MOUTH TWICE DAILY Rx Instructions: TAKE ONE TABLET BY MOUTH TWICE DAILY memantine 10 mg tablet 10 mg PO BID Qty: 180 1RF gabapentin 300 mg capsule 600 mg PO HS Qty: 60 2RF nitrofurantoin macrocrystal 100 mg capsule 100 mg PO Q12H 5 Days Qty: 10 0RF Rx Instructions: must administer with a meal/food Referrals Follow up/Referrals: Dg Kang MD [Primary Care Provider, Medical] - See instructions Clinical Impressions Clinical Impression: Fracture, thoracic vertebra Stand Alone Forms Stand Alone Forms: Transfer Record - ED Print Language Print Language: Japanese Discharge ED Provider: Byron Etienne General Adult HPI <Patricia Hair (ED), BRICK SETTER OPERATOR - Last Filed: 03/02/25 16:05> General Chief complaint: Fall Stated complaint: back pain from previous accident Time Seen by Provider: 03/02/25 12:57 Mode of Arrival: Wheelchair Source of Information: Patient Description of Symptoms (Recalled from ER Triage Doc. by RN): patient states she fell on concrete last saturday was seen here then no deformities. she is reporting lower back pain still. 07/02 History of Present Illness HPI narrative: 84-year-old female presents to the ED today with complaint of fall last Saturday night on concrete. She was walking with her rollator and there was a divot in the concrete and she tripped and fell falling on the back of her head and back. She has had back surgery in the past and has hardware. She has been sleeping in her recliner since this fall. She was seen the same day and had imaging but her back has increased in pain. She usually uses a walker but is weak today granddaughter states that she is concerned about her back pain. She has not been sleeping in her bed due to the pain. She is unable to roll over in the bed. Patient does have history of early on dementia, TIA, hypertension, hyperlipidemia and back surgery in the past. She is hard of hearing. Related Data Previous Rx's ?Medication ?Instructions ?Recorded diclofenac sodium 1 % topical gel 4 g topical QID PRN Arthritis pain 04/29/24 of knee #100 grams levalbuterol HCl 1.25 mg/3 mL See Rx Instructions .Rou te 09/25/24 solution for nebulization .COMPLEX #270 mL losartan 100 mg tablet See Rx Instructions .Route 0 09/28/24 .COMPLEX #90 tabs primidone 250 mg tablet See Rx Instructions .Route 0 09/28/24 .COMPLEX #90 tabs simvastatin 20 mg tablet See Rx Instructions .Route 0 09/28/24 .COMPLEX #90 tabs pantoprazole 40 mg tablet,delayed See Rx Instructions .Route 10/30/24 release .COMPLEX #90 tabs propranolol 60 mg tablet See Rx Instructions .Route 0 10/30/24 .COMPLEX #60 tabs nitrofurantoin macrocrystal 100 mg 100 mg PO Q12H 5 da ys #10 caps 12/02/24 capsule gabapentin 300 mg capsule 600 mg (2 x 300 mg) PO HS #6 0 caps 03/03/25 memantine 10 mg tablet 10 mg PO BID #180 tabs 03/03 Allergies Allergy/AdvReac Type Severity Reaction Status Date / Time glucosamine Allergy Unknown BOWELS Verified 02/23/25 10:35 BLEEDING Sulfa (Sulfonamide Allergy Unknown Verified 02/23/25 10:35 Antibiotics) donepezil Allergy Verified 02/23/25 10:35 Penicillins Allergy Verified 02/23/25 10:35 sulfamethoxazole AdvReac Verified 02/23/25 10:35 PFSH <Patricia Hair (ED), BRICK SETTER OPERATOR - Last Filed: 03/02/25 16:05> PFS Disclaimer: The information contained in this section may have been updated after the patient was seen, as this information can be updated by other users. 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 Smoking Status: Never smoker alcohol intake: never substance use type: denies use current occupational status: other Travel in the last 8 weeks?: None household members: none housing: house current occupational exposures/hazards: No caffeine: No Have you lived/traveled outside [place] in past 30 days?: No Contact w/someone who lives/traveled outside US past 30 days?: No Exposure to someone with infectious disease in past 14 days?: No Do you have a fever (greater than 100.4 F or 38 C)?: No Have you tested positive for COVID-19?: No Exposed to someone with COVID-19 in past 14 days?: No Do you have a sore throat?: No Do you have a cough?: No Do you have any weakness?: No Do you have any diarrhea?: No Are you experiencing any unusual bleeding?: No Do you have any muscle aches/pain?: No Do you have any abdominal pain?: No Are you experiencing loss of taste or smell?: No Other Medical History Have you received the Flu Vaccine for this season: Yes Have you received the Pneumonia Vaccine: Yes <Patricia Hair (ED), BRICK SETTER OPERATOR - Last Filed: 03/02/25 16:05> ROS Obtained: Yes Systems reviewed as appropriate & no additional complaints except as documented Constitutional Constitutional: Reports as per HPI Physical Exam <Patricia Hair (ED), BRICK SETTER OPERATOR - Last Filed: 03/02/25 16:05> General General appearance: alert and in distress (Complains of back pain) Head Head exam: normocephalic Eye Eye exam: Present PERRL and EOMI ENT ENT exam: Present normal oropharynx and mucous membranes moist Neck Neck exam: Present full ROM and trachea midline Respiratory Respiratory exam: Present normal lung sounds bilaterally Cardiovascular Cardiovascular exam: Present regular rate, normal rhythm, normal heart sounds, +S1 and +S2 Abdominal Exam Abdominal exam: Present soft and normal bowel sounds Extremities Exam Extremities exam: Present normal inspection, full ROM and normal capillary refill Back Exam Back exam: Present tenderness, paraspinal tenderness and vertebral tenderness Neurological Exam Neurological exam: Present alert and oriented X3 Skin Skin exam: Present warm, dry and intact Medical Decision Making <Patricia Hair (ED), BRICK SETTER OPERATOR - Last Filed: 03/02/25 16:05> Medical Records Medical records reviewed: Yes I reviewed the patient's medical records. Screening: Per USPSTF and CDC recommendations, given the prevalence of disease in our region, it is our hospital?s policy to screen for HIV and viral Hepatitis for all patients aged 18 and over and those with ongoing risk factors. Dano Inquiry Pt receiving controlled substance: No Dano was queried for this patient: No Vital Signs: 03/02/25 13:00 03/02/25 13:00 03/02/25 14:01 Temperature 98.4 F Temperature Source Oral Pulse Rate 77 71 Pulse Rate [Right Radial] 77 Respiratory Rate 15 18 Blood Pressure 132/71 141/70 H Blood Pressure [Right Arm] 130/76 Blood Pressure Mean 91 Blood Pressure Mean [Right Arm] 94 Blood Pressure Source Blood Pressure Source [Right Arm] Automatic Cuff Blood Pressure Position Blood Pressure Position [Right Arm] Sitting 02 Sat by Pulse Oximetry 95 95 94 L Oxygen Delivery Method Room Air 03/02/25 14:31 03/02/25 15:25 Temperature 98.4 F Temperature Source Oral Pulse Rate 69 70 Pulse Rate [Right Radial] Respiratory Rate 18 15 Blood Pressure 126/53 L 147/83 H Blood Pressure [Right Arm] Blood Pressure Mean 89 Blood Pressure Mean [Right Arm] Blood Pressure Source Automatic Cuff Blood Pressure Source [Right Arm] Blood Pressure Position Supine Blood Pressure Position [Right Arm] 02 Sat by Pulse Oximetry 95 Oxygen Delivery Method Room Air Lab Data Lab Results 03/02/25 13:35: WBC 9.4, RBC 4.36, Hgb 13.3, Hct 39.2, MCV 89.9, MCH 30.5, MCHC 33.9, RDW 14.5, Plt Count 202, MPV 9.6, Neut % (Auto) 83.6 H, Lymph % (Auto) 5.5 L, [place] % (Auto) 7.7, Eos % (Auto) 1.8, Baso % (Auto) 0.6, Neut # (Auto) 7.9 H, Lymph # (Auto) 0.5 L, [place] # (Auto) 0.7, Eos # (Auto) 0.2, Baso # (Auto) 0.1, Total Counted 100, Neutrophils % (Manual) 90 H, Lymphocytes % (Manual) 5 L, Monocytes % (Manual) 4, Eosinophils % (Manual) 1, Platelet Estimate Normal, RBC Morphology Normal, Sodium 127 L, Potassium 4.7, Chloride 96 L, Carbon Dioxide 28, Anion Gap 7.7, BUN 22 H, Creatinine 0.90, Estimated Creat Clear 45, Estimated GFR 60, Est GFR ( Amer) 72, Glucose 121 H, Calcium 9.4, Magnesium 1.7, Total Bilirubin 0.4, AST 33, ALT 36, Alkaline Phosphatase 101, Total Protein 6.6, Albumin 4.1, Globulin 2.5, Albumin/Globulin Ratio 1.6, HCV Ab COLIN w/Rflx PCR Qn Negative, HIV Ag/Ab Combo Qual Negative 03/02/25 13:35 03/02/25 13:35 Orders (Tests/Meds): ED MEDICATIONS Discontinued Medications Generic Name Dose Route Start Last Admin Trade Name Freq PRN Reason Stop Dose Admin Ketorolac Tromethamine 30 mg 03/02/25 13:11 03/02/25 13:38 Ketorolac 30mg/Ml Vial IV 03/02/25 13:12 30 mg ONCE ONE Administration Orphenadrine Citrate 60 mg 03/02/25 13:11 03/02/25 13:38 Orphenadrine Citrate 60mg/2ml Vial IV 03/02/25 13:12 60 mg ONCE ONE Administration ORDERS Category Date Time Status CT lumbar spine wo con Stat Cat Scan 03/02/25 13:[address] thoracic spine wo con Stat Cat Scan 03/02/25 13:10 Completed CBC [Complete Blood Count Auto Diff] Stat Lab 03/02/25 13:35 Completed Comprehensive Metabolic Panel Stat Lab 03/02/25 13:35 Completed HIV Combo Stat Lab 03/02/25 13:35 Completed Hepatitis C Ab Qual. W/ RFX Stat Lab 03/02/25 13:35 Completed Magnesium Stat Lab 03/02/25 13:35 Completed Medical Decision Narrative: patient is a 84-year-old female presenting to the emergency department for evaluation of low back pain and mid back pain after a trip and fall incident last Saturday. Patient is hemodynamically stable and nontoxic-appearing upon arrival, afebrile. Differential diagnosis includes low and mid back pain, sprain, strain of back, fracture, muscle spasms among others. Workup will be conducted with hematologic labs, specific imaging, repeat CT scans. Initial inventions include analgesics for pain. Initial workup reviewed by ma labs were unremarkable. CT of thoracic spine showed T-spine fracture at 10 and 11. Please see read for official radiology read. I called and talked to Dr. Asif and spine who want to see patient at [facility] for an MRI to rule out cord compression and instability because fracture could move towards the disc space where the patient has hardware in place. For that reason patient was excepted to [facility] ER. Patient was given Toradol and Norflex for pain while here in the ED. This did cause a mild amount of confusion but patient stated that it did help her pain some. Patient is alert and oriented and safe for discharge to . Dr. Etienne aware of plan and agreeable. <Byron Etienne MD - Last Filed: 03/03/25 21:28> Vital Signs: 03/02/25 13:00 03/02/25 13:00 03/02/25 14:01 Temperature 98.4 F Temperature Source Oral Pulse Rate 77 71 Pulse Rate [Right Radial] 77 Respiratory Rate 15 18 Blood Pressure 132/71 141/70 H Blood Pressure [Right Arm] 130/76 Blood Pressure Mean 91 Blood Pressure Mean [Right Arm] 94 Blood Pressure Source Blood Pressure Source [Right Arm] Automatic Cuff Blood Pressure Position Blood Pressure Position [Right Arm] Sitting 02 Sat by Pulse Oximetry 95 95 94 L Oxygen Delivery Method Room Air 03/02/25 14:31 03/02/25 15:25 Temperature 98.4 F Temperature Source Oral Pulse Rate 69 70 Pulse Rate [Right Radial] Respiratory Rate 18 15 Blood Pressure 126/53 L 147/83 H Blood Pressure [Right Arm] Blood Pressure Mean 89 Blood Pressure Mean [Right Arm] Blood Pressure Source Automatic Cuff Blood Pressure Source [Right Arm] Blood Pressure Position Supine Blood Pressure Position [Right Arm] 02 Sat by Pulse Oximetry 95 Oxygen Delivery Method Room Air Lab Data Lab Results 03/02/25 13:35: WBC 9.4, RBC 4.36, Hgb 13.3, Hct 39.2, MCV 89.9, MCH 30.5, MCHC 33.9, RDW 14.5, Plt Count 202, MPV 9.6, Neut % (Auto) 83.6 H, Lymph % (Auto) 5.5 L, [place] % (Auto) 7.7, Eos % (Auto) 1.8, Baso % (Auto) 0.6, Neut # (Auto) 7.9 H, Lymph # (Auto) 0.5 L, [place] # (Auto) 0.7, Eos # (Auto) 0.2, Baso # (Auto) 0.1, Total Counted 100, Neutrophils % (Manual) 90 H, Lymphocytes % (Manual) 5 L, Monocytes % (Manual) 4, Eosinophils % (Manual) 1, Platelet Estimate Normal, RBC Morphology Normal, Sodium 127 L, Potassium 4.7, Chloride 96 L, Carbon Dioxide 28, Anion Gap 7.7, BUN 22 H, Creatinine 0.90, Estimated Creat Clear 45, Estimated GFR 60, Est GFR ( Amer) 72, Glucose 121 H, Calcium 9.4, Magnesium 1.7, Total Bilirubin 0.4, AST 33, ALT 36, Alkaline Phosphatase 101, Total Protein 6.6, Albumin 4.1, Globulin 2.5, Albumin/Globulin Ratio 1.6, HCV Ab COLIN w/Rflx PCR Qn Negative, HIV Ag/Ab Combo Qual Negative Orders (Tests/Meds): ED MEDICATIONS Discontinued Medications Generic Name Dose Route Start Last Admin Trade Name Freq PRN Reason Stop Dose Admin Ketorolac Tromethamine 30 mg 03/02/25 13:11 03/02/25 13:38 Ketorolac 30mg/Ml Vial IV 03/02/25 13:12 30 mg ONCE ONE Administration Orphenadrine Citrate 60 mg 03/02/25 13:11 03/02/25 13:38 Orphenadrine Citrate 60mg/2ml Vial IV 03/02/25 13:12 60 mg ONCE ONE Administration ORDERS Category Date Time Status CT lumbar spine wo con Stat Cat Scan 03/02/25 13:[address] thoracic spine wo con Stat Cat Scan 03/02/25 13:10 Completed CBC [Complete Blood Count Auto Diff] Stat Lab 03/02/25 13:35 Completed Comprehensive Metabolic Panel Stat Lab 03/02/25 13:35 Completed HIV Combo Stat Lab 03/02/25 13:35 Completed Hepatitis C Ab Qual. W/ RFX Stat Lab 03/02/25 13:35 Completed Magnesium Stat Lab 03/02/25 13:35 Completed Medical Decision Narrative: patient is a 84-year-old female presenting to the emergency department for evaluation of low back pain and mid back pain after a trip and fall incident last Saturday. Patient is hemodynamically stable and nontoxic-appearing upon arrival, afebrile. Differential diagnosis includes low and mid back pain, sprain, strain of back, fracture, muscle spasms among others. Workup will be conducted with hematologic labs, specific imaging, repeat CT scans. Initial inventions include analgesics for pain. Initial workup reviewed by ma labs were unremarkable. CT of thoracic spine showed T-spine fracture at 10 and 11. Please see read for official radiology read. I called and talked to Dr. Asif and spine who want to see patient at [facility] for an MRI to rule out cord compression and instability because fracture could move towards the disc space where the patient has hardware in place. For that reason patient was excepted to [facility] ER. Patient was given Toradol and Norflex for pain while here in the ED. This did cause a mild amount of confusion but patient stated that it did help her pain some. Patient is alert and oriented and safe for discharge to . Dr. Etienne aware of plan and agreeable. I was consulted by the NANETTE, and we discussed the complexity of the problems being addressed.I approved the treatment and management plan for this patient?s care in the Emergency Department, thus performing a substantive portion of the medical decision making.Signed, Byron Etienne MD MBA Critical Care <Patricia Hair (ED), BRICK SETTER OPERATOR - Last Filed: 03/02/25 16:05> Critical Care Time Critical Care Time: No
[2025-03-02] MEDS: ORPHENADRINE CITRATE 60MG/2ML VIAL 60 MG IV (13:38)
[2025-03-02] MEDS: KETOROLAC 30MG/ML VIAL 30 MG IV (13:38)
[2025-03-02 13:53] LABS: Albumin Level 4.1 g/dl (3.5-5.0); Chloride 96 mmol/L (98-107); Sodium 127 mmol/L (136-145)
[2025-03-02 13:54] LABS: Potassium 4.7 mmoL/L (3.5-5.1)
[2025-03-02 13:56] LABS: Alanine Aminotransferase 36 U/L (12-78); Albumin/Globulin Ratio 1.6 (1.1-1.8); Alkaline Phosphatase 101 U/L (38-126); Anion Gap 7.7 mEq/L (5-15); Aspartate Amino Transferase 33 U/L (14-36); Bilirubin,Total 0.4 mg/dl (0.2-1.3); Blood Urea Nitrogen 22 mg/dl (7-17); Carbon Dioxide 28 mmol/L (22.0-30.0); Creatinine Clearance Estimated 45 mL/min (50-200); Estimated Glomerular Filt Rate 60 ml/min (>60); GFR (African American) 72 ML/MIN (>60); Globulin 2.5 g/dL (1.3-3.2); Total Protein,Serum 6.6 g/dl (6.3-8.2)
[2025-03-02 13:57] LABS: Basophils # 0.1 K/mm3 (0-0.2); Basophils % 0.6 % (0.1-2.0); Calcium 9.4 mg/dl (8.4-10.2); Eosinophils # 0.2 Kmm3 (0.0-0.4); Eosinophils % 1.8 % (0.1-12.0); Glucose 121 mg/dl (74-100); Hematocrit 39.2 % (37.0-47.0); Hemoglobin 13.3 g/dL (12.2-16.2); Immature Granulocytes # 0.08 10^3uL; Immature Granulocytes % 0.8 %; Lymphocytes # 0.5 K/mm3 (0.7-4.5); Lymphocytes % 5.5 % (10-50); Magnesium 1.7 mg/dl (1.6-2.3); Mean Corpuscular HGB Conc 33.9 g/dL (31.8-35.4); Mean Corpuscular Hemoglobin 30.5 pg (27.0-31.2); Mean Corpuscular Volume 89.9 fl (81-99); Mean Platelet Volume 9.6 fl (7.4-10.4); Monocytes # 0.7 K/mm3 (0.1-1.0); Monocytes % 7.7 % (1.7-9.3); Neutrophils # 7.9 K/mm3 (1.8-7.8); Neutrophils % 83.6 % (37.0-80.0); Nucleated Red Blood Cells # 0 10^3/uL; Nucleated Red Blood Cells % 0 %; Platelet Count 202 K/mm3 (142-424); Red Blood Count 4.36 M/mm3 (4.20-5.40); Red Cell Distribution Width 14.5 % (11.5-17.5); Red Cell Distribution Width-SD 47.4 fL; White Blood Count 9.4 K/mm3 (4.8-10.8)
[2025-03-02 14:01] VITALS: BP 141/70; PULSE 71; O2SAT 94
[2025-03-02 14:15] LABS: MANUAL DIFFERENTIAL MANUAL DIFFERENTIAL (MANUAL DIFF)
[2025-03-02 14:31] VITALS: BP 126/53; PULSE 69; RESP 18; O2SAT 95
--- NOTE | 2025-03-02 14:33 | PC.NURSE ---
made call to [facility] for transfer. stated would call back as soon as possible
[2025-03-02 14:37] LABS: HIV Combo NEGATIVE (Negative)
--- NOTE | 2025-03-02 14:38 | PC.NURSE ---
PA o/p with [facility] at this time.
[2025-03-02 14:46] LABS: Hepatitis C Ab Qual. W/ RFX NEGATIVE (Negative)
[2025-03-02 15:01] LABS: Eosinophils % 1 % (0-3); Lymphocytes % 5 % (10-50); Monocytes % 4 % (2-9); Neutrophils % 90 % (42-76); Total Cells Counted 100
[2025-03-02 15:02] LABS: Platelet Estimate Normal; RBC Morphology Normal
--- NOTE | 2025-03-02 15:18 | PC.NURSE ---
report called to Dana CHOI @ [facility] ED
[2025-03-02 15:25] VITALS: BP 147/83; PULSE 70; RESP 15; TEMP 36.9; O2SAT 95
== END 2025-03-02 15:27 | disposition other institution (70) ==
PROVIDERS: Nurse Practitioner; Emergency Provider Emergency Medicine; PCP Internal Medicine
DX: S22.088A Other fracture of T11-T12 vertebra, initial encounter for closed fracture (principal); M54.9 Dorsalgia, unspecified; E87.1 Hypo-osmolality and hyponatremia; W19.XXXA Unspecified fall, initial encounter; Z11.59 Encounter for screening for other viral diseases; Z11.4 Encounter for screening for human immunodeficiency virus [HIV]
CPT/HCPCS: 72128; 72131; 80053; 80074; 83735; 85007; 85025; 85027; 87389; 96374; 96375; 99285; J1885; J2360

== ENCOUNTER 2025-04-29 11:50 | Outpatient (CLI) | payer MEDICARE, MEDICAID, SELFPAY ==
--- OUTSIDE RECORDS SUMMARY | 2025-03-02 16:46 | XMS_ITS | Encounter Summary ---
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 Overview Signed 03/03/2025 5:50 [...] by: Cintia Duckworth APRN, DNP at 03/04/2025 [id number] Cintia Duckworth APRN, DNP * Clinician Note [...] fitting. * Progress Notes - Cintia Duckworth, GLASS ETCHER HELPER, DNP - 03/03/2025 9:35 AM EDT TRAUMA [...] everett catheter with medication. Last BM was POSTIE, according to granddaughter yesterday. Pain is well controlled. Tertiary exam completed. Denies smoking, alcohol intake, and illicit substance use. Discussed plan of care with patient/family, who is in understanding. No further concerns per patient or nursing. Edited by: Cintia Duckworth, INEZ, DNP at 03/03/2025 5614 Are there limits on this patient's care [...] - Please have patient follow up at [facility] with Neurosurgery NANETTE in 4-6 weeks with AP/Lateral XR of thelumbar spine and AP/Lateral XR of the thoracic spine: [facility] [place] ([facility]) Clinic, [address], 1st floor, [address] [place] [address] #[phone] HTN (hypertension) Yes Overview Signed 03/03/2025 5:50 [...] Overview Signed 03/03/2025 5:58 PM by Cintia Duckwroth APRN, DNP 8mm left-sided renal collecting system [...] by: Cintia Duckworth APRN, DNP at 03/03/2025 [id number] Cintia Duckworth APRN, DNP New diagnoses, need [...] - Please have patient follow up at [facility] with Neurosurgery NANETTE in 4-6 weeks with AP/Lateral XR of thelumbar spine and AP/Lateral XR of the thoracic spine: [facility] [place] ([facility]) Clinic, [address], 1st floor, [facility]. [address] [place] [address] #[phone] - Rest of care per primary Kal Castro MD Resident Physician, PGY-2 Department of neurosurgery Pager: [phone] [1] Current Facility-Administered Medications Medication Dose Route [...] Garner MD, PhD * Hospital Course - Lillainmaria gjulian Shan INEZ Barber - 03/03/2025 7:55 [...] Braced. Medically ready for subacute. Patient to [place] to [facility] in [place]. Discussed care plan with family, nursing, and [...] stay, and so will be discharged to [facility] rehab. DVT prophylaxis: None at [place] Procedures: Non-operative management Mobility Restrictions: No mobility [...] chronic conditions/medications Neurosurgery: 04/06/25 at 10am @ [facility] [place] ([facility], [address], 1st floor, Count Includes [facility] [address], [place] [address] #[phone] SGT: NANETTE Saturday Clinic as needed; [address], [place] [facility] First Floor, Wing [address] Room [address] [place] [address], #[phone]. Questions or Concerns and Appointments If there are questions or concerns after discharge from the hospital, please call [phone] and ask for Blue Surgery Nurse. Working hours are Saturday - Saturday 8:00 AM to 4:00 PM. After hours, weekends and holidays please call [phone] and ask for the resident chip person for Blue Surgery. For appointments please call [phone]. Medication requests should be made between the hours of 9:00 AM to 3:00 PM Saturday thru Saturday. Please note that based upon recent changes to [place] law related to prescribing opioid pain medications, [...] Date: 03/02/25 Arrival Time: 4:46pm Referring Hospital: [facility] Injury Date: 02/21/25 Injury Time: unknown [...] kg (176 lb 9.4 oz), SpO2 96%. Blum Blum Coma Scale Best Eye Response: Spontaneous Best [...] from standing, initial encounter Closed T11 fracture ([facility]) Plan: - admit SGT - neurosurgery consulted, f/u recs - f/u MRIs - PT/OT - home meds as able once verified [1] No family history on file. [2] Current Facility-Administered Medications Medication Dose Route Frequency Provider Last Rate Last Admin acetaminophen (Tylenol) tablet 650 mg 650 mg Oral q6h [facility] Ellis Canales MD 650 mg at [...] weakness. Comments: Awake Psychiatric: Behavior: Behavior normal. Sue Coma Scale Score: 15 ED Course & [...] ELLIS 03/02/252246 Full code Continuous Acknowledged [facility] 03/02/252246 NPO diet Diet effective now Acknowledged [facility] 03/02/252246 Place sequential compression device Until discontinued Comments: SCDs must be in place and turned on EXCEPT when ACTIVELY ambulating. Acknowledged [facility] 03/02/252246 OT eval and treat Until therapy completed Lien [facility] 03/02/252246 PT eval and treat Until therapy completed Acknowledged [facility] 03/02/252246 Do Not Give Nicotine Replacement Until discontinued Acknowledged [facility] 03/02/252246 Mobility Orders Until discontinued Acknowledged [facility] 03/02/252246 Incentive spirometry Every 1 hour while awake Lien [facility] 03/02/252246 Notify Provider Until discontinued Acknowledged [facility] 03/02/252246 Vital Signs Until discontinued Comments: Every 1Hr x4, Then Every 4hrs Thereafter. Acknowledged [facility] 03/02/252246 Intake and Output - Strict Per unit protocol Lien [facility] 03/02/252246 Insert peripheral IV Once Placed in And Linked Group Acknowledged [facility] 03/02/252246 Saline lock IV Once Placed in [...] None Disposition Admit Admitting/Attending Physician: DANK DAVENPORT [[id number]] Provider Care Team: SGT FLOOR 6 [[id number]] [...] Description 05/18/2025 9:20 AM EDT Office Visit [facility] [address], [address] [place] [address] Amada Rose, GLASS ETCHER HELPER [address] [place] [address] documented as of this encounter [...] - AUTOMATED METHOD 03/03/2025 8:[address] [facility] Clarity, Urine Clear LAB URINALYSIS - AUTOMATED METHOD 03/03/2025 8:[address] [facility] Spec Stevenson, Urine 1.016 1.005 - 1.030 LAB URINALYSIS - AUTOMATED METHOD 03/03/2025 8:[address] [facility] pH, Urine 6.5 5.0 - 8.0 LAB URINALYSIS - AUTOMATED METHOD 03/03/2025 8:[address] [facility] Protein, Urine Negative Negative mg/dL LAB URINALYSIS - AUTOMATED METHOD 03/03/2025 8:[address] [facility] Glucose, Urine Negative Negative mg/dL LAB URINALYSIS - AUTOMATED METHOD 03/03/2025 8:[address] [facility] Ketones, Urine Negative Negative mg/dL LAB URINALYSIS - AUTOMATED METHOD 03/03/2025 8:[address] [facility] Blood, Urine Negative Negative LAB URINALYSIS - AUTOMATED METHOD 03/03/2025 8:[address] [facility] Bilirubin, Urine Negative Negative LAB URINALYSIS - AUTOMATED METHOD 03/03/2025 8:[address] [facility] Urobilinogen, Urine 0.2 0.2 to 1.0 mg/dL LAB URINALYSIS - AUTOMATED METHOD 03/03/2025 8:[address] [facility] Leukocytes, Urine Negative Negative LAB URINALYSIS - AUTOMATED METHOD 03/03/2025 8:[address] [facility] Nitrite, Urine Negative Negative LAB URINALYSIS - AUTOMATED METHOD 03/03/2025 8:[address] [facility] Urine Urine specimen obtained by clean catch procedure / Unknown Non-blood Collection / Unknown 03/03/2025 7:59 AM EDT 03/03/2025 8:03 AM EDT us Jose Salinas MD LAB URINE ORDERABLES Final R esult [facility] [address] [place] [address] * MR Lumbar Spine wo IV Contrast [...] the inferior endplate and extending into the [id number]-[id number] disc. *No evidence of fracture or traumatic [...] the inferior endplate and extending into the L61-[id number] disc. *No evidence of fracture or traumatic [...] the inferior endplate and extending into the X20-E47ckhsonblymymvc disc. *No evidence of fracture or traumatic [...] Hold for add-ons 03/02/2025 9:[address] [facility] Comment:Auto resulted. Blood Venous blood specimen / Unknown 03/02/2025 6:44 PM EDT 03/02/2025 6:53 PM EDT us Jose Salinas MD LAB BLOOD ORDERABLES Final R esult [facility] [address] [place] [address] * ED HIV 1/2 Antibody/Antigen Screen w/Reflex to HIV 1/2 Differentiation (03/02/2025 6:44 PM EDT) Pathologist [facility] [place] HIV 1 & 2 Antibody/Antigen Screen Non Reactive Non Reactive 03/02/2025 7:[address] [facility] Comment:Screening for HIV 1 & 2 antibodies, and P24 antigen is NONREACTIVE. No confirmatory testing is required. Blood Venous blood specimen / Unknown Venipuncture / Unknown 03/02/2025 6:44 PM EDT 03/02/2025 7:02 PM EDT us Jose Salinas MD LAB BLOOD ORDERABLES Final R esult [facility] [address] [place] [address] * Hepatitis C Antibody - ED (03/02/2025 6:44 PM EDT) [facility] Hepatitis C Antibody Negative Negative 03/02/2025 7:[address] [facility] Blood Venous blood specimen / Unknown Venipuncture / Unknown 03/02/2025 6:44 PM EDT 03/02/2025 7:02 PM EDT us Jose Salinas MD LAB BLOOD ORDERABLES Final R esult [facility] [address] [place] [address] * Magnesium (03/02/2025 6:44 PM EDT) [facility] Magnesium, Plasma 1.9 1.9 - 2.4 mg/dL 03/02/2025 7:[address] [facility] Blood Venous blood specimen / Unknown Venipuncture / Unknown 03/02/2025 6:44 PM EDT 03/02/2025 6:49 PM EDT us Jose Salinas MD LAB BLOOD ORDERABLES Final R esult [facility] [address] [place] [address] * (ABNORMAL) CMP (03/02/2025 6:44 PM EDT) Pathologist [facility] Glucose, Plasma 107(H) 74 - 99 mg/dL 03/02/2025 7:[address] [facility] BUN, Plasma 24(H) 8 - 23 mg/dL 03/02/2025 7:[address] [facility] Creatinine, Plasma 1.02 0.60 - 1.10 mg/dL 03/02/2025 7:[address] [facility] BUN/Creatinine Ratio 24 03/02/2025 7:[address] [facility] Sodium, Plasma 130(L) 136 - 145 mmol/L 03/02/2025 7:[address] [facility] Potassium, Plasma 4.8 3.6 - 4.9 mmol/L 03/02/2025 7:[address] [facility] Chloride, Plasma 96(L) 97 - 107 mmol/L 03/02/2025 7:[address] [facility] CO2, Plasma 24 22 - 29 mmol/L 03/02/2025 7:[address] [facility] Anion Gap 10 6 - 16 mmol/L 03/02/2025 7:[address] [facility] Total Calcium, Plasma 8.8(L) 8.9 - 10.2 mg/dL 03/02/2025 7:[address] [facility] Total Protein 5.7(L) 6.3 - 7.9 g/dL 03/02/2025 7:[address] [facility] Albumin, Plasma 3.6 3.5 - 5.2 g/dL 03/02/2025 7:[address] [facility] AST, Plasma 19 10 - 35 U/L 03/02/2025 7:[address] [facility] Comment:Hemolyzed, result ma y be falsely increased. ALT, Plasma 25 10 - 35 U/L 03/02/2025 7:[address] [facility] Alkaline Phosphatase, Plasma 92 46 - 142 U/L 03/02/2025 7:[address] [facility] Total Bilirubin, Plasma 0.4 0.2 - 1.1 mg/dL 03/02/2025 7:[address] [facility] eGFRcr 54.0 mL/min/1.7 3m*2 03/02/2025 7:[address] [facility] Comment:Reported eGFRcr in m L/min/1.73m2 is based the CKD-EPI 2020 equation that does not use a race coefficient. Blood Venous blood specimen / Unknown Venipuncture / Unknown 03/02/2025 6:44 PM EDT 03/02/2025 6:49 PM EDT Jose Salinas MD LAB BLOOD ORDERABLES Final R esult [facility] [address] [place] [address] * Type and screen (03/02/2025 6:44 PM [...] ORDERABL ES Final Result Performing Organization Address City/[facility]/ZIP Co de Phone Number BLOOD BANK [address] [place] [address], [place] * PT-INR (03/02/2025 6:44 PM EDT) [facility] Prothrombin Time 13.1 12.0 - 14.3 sec 03/02/2025 7:[address] [facility] INR 1.0 0.9 - 1.1 03/02/2025 7:[address] [facility] Blood Venous blood specimen / Unknown Venipuncture / Unknown 03/02/2025 6:44 PM EDT 03/02/2025 6:49 PM EDT [facility] - 03/02/2025 7:04 PM EDT OPTIMAL INR RANGES FOR PATIENT ON ORAL ANTICOAGULANT THERAPY Prevention of venous thromboembolism INR 2.0 to 3.0 In patients with heart disease: Atrial fibrillation INR 2.0 to 3.0 Valvular heart disease INR 2.0 to 3.0 Tissue heart valves INR 2.0 to 3.0 Mechanical prosthetic valves INR 2.5 to 3.5 Prevention of recurrent [place] INR 2.5 to 3.5 us Jose Salinas MD LAB BLOOD ORDERABLES Final R esult [facility] [address] [place] [address] * (ABNORMAL) CBC w/diff (03/02/2025 6:44 PM EDT) [facility] WBC Count 7.31 3.70 - 10.30 10*3/uL LAB HEMATOLOGY METHOD 03/02/2025 6:[address] [facility] RBC Count 3.91 3.90 - 5.20 10*6/uL LAB HEMATOLOGY METHOD 03/02/2025 6:[address] [facility] HGB 12.0 11.2 - 15.7 g/dL LAB HEMATOLOGY METHOD 03/02/2025 6:[address] [facility] HCT 34.7 34.0 - 45.0 % LAB HEMATOLOGY METHOD 03/02/2025 6:[address] [facility] Platelet Count 161 155 - 369 10*3/uL LAB HEMATOLOGY METHOD 03/02/2025 6:[address] [facility] MCV 89 79 - 98 fL LAB HEMATOLOGY METHOD 03/02/2025 6:[address] [facility] MCH 30.7 26.0 - 32.0 pg LAB HEMATOLOGY METHOD 03/02/2025 6:[address] [facility] MCHC 34.6 30.7 - 35.5 g/dL LAB HEMATOLOGY METHOD 03/02/2025 6:[address] [facility] RDW 14.3 11.5 - 14.5 % LAB HEMATOLOGY METHOD 03/02/2025 6:[address] [facility] MPV 9.3 8.8 - 12.5 fL LAB HEMATOLOGY METHOD 03/02/2025 6:[address] [facility] nRBC 0.0 <=0.0 per 100 WBCs LAB HEMATOLOGY METHOD 03/02/2025 6:[address] [facility] Differential Type Automated LAB HEMATOLOGY METHOD 03/02/2025 6:[address] [facility] Neutrophils % 78 % LAB HEMATOLOGY METHOD 03/02/2025 6:[address] [facility] Lymphocytes % 10 % LAB HEMATOLOGY METHOD 03/02/2025 6:[address] [facility] Monocytes % 8 % LAB HEMATOLOGY METHOD 03/02/2025 6:[address] [facility] Eosinophils % 2 % LAB HEMATOLOGY METHOD 03/02/2025 6:[address] [facility] Basophils % 1 % LAB HEMATOLOGY METHOD 03/02/2025 6:[address] [facility] Immature Granulocytes % 1 % LAB HEMATOLOGY METHOD 03/02/2025 6:[address] [facility] Neutrophils Absolute 5.69 1.60 - 6.10 10*3/uL LAB HEMATOLOGY METHOD 03/02/2025 6:[address] [facility] Lymphocytes Absolute 0.76(L) 1.20 - 3.90 10*3/uL LAB HEMATOLOGY METHOD 03/02/2025 6:[address] [facility] Monocytes Absolute 0.60 0.30 - 0.90 10*3/uL LAB HEMATOLOGY METHOD 03/02/2025 6:[address] [facility] Eosinophils Absolute 0.15 0.00 - 0.50 10*3/uL LAB HEMATOLOGY METHOD 03/02/2025 6:[address] [facility] Basophils Absolute 0.06 0.00 - 0.10 10*3/uL LAB HEMATOLOGY METHOD 03/02/2025 6:[address] [facility] Immature Granulocytes Absolute 0.05 0.00 - 0.06 10*3/uL LAB HEMATOLOGY METHOD 03/02/2025 6:[address] [facility] Blood Venous blood specimen / Unknown Venipuncture / Unknown 03/02/2025 6:44 PM EDT 03/02/2025 6:[address] [facility] - 03/02/2025 6:52 PM EDT Therapeutic decision making should be based on absolute values, rather than percentages. us Jose Salinas MD LAB BLOOD ORDERABLES Final R esult [facility] [address] [place] [address] * EKG now - STAT (adult) (03/02/2025 6:12 PM EDT) EKG DIAGNOSIS CLASS Abnormal MUSE ECG Ventricular Rate 66 BPM MUSE ECG Atrial Rate 66 BPM MUSE ECG ME Interval 104 ms MUSE ECG QRSD Interval 76 ms MUSE ECG QT Interval 398 ms MUSE ECG QTC Interval 417 ms MUSE ECG P Agar 85 degrees MUSE ECG R Agar -31 degrees MUSE ECG T Wave Agar 9 degrees MUSE ECG Diagnosis Sinus rhythm with short ME MUSE ECG Diagnosis Left axis deviation MUSE ECG Diagnosis Poor R-wave progression Cannot rule out Anterior infarct , age undetermined MUSE ECG Diagnosis Abnormal ECG MUSE ECG Diagnosis Need clinical information and correlation MUSE ECG Diagnosis Confirmed by Mynor Baptiste ([id number]) on 03/02/2025 7:25:29 PM MUSE ECG 03/02/2025 [...] Adele Mata RN)1404 (Given - Provider: Everardo Pgae)2303 (Given - Provider: Luma Monge) 0602 (Given [...] documented as of this encounter Care Teams Lawn And Garden Technician Relationship Specialty Start Date End Date Dg Kang MD [address] [place] [address] [address] [place] [address] PCP - General 02/03/21 documented as of this encounter
--- OUTSIDE RECORDS SUMMARY | 2025-04-06 10:03 | XMS_ITS | Encounter Summary ---
Author Organization Healthcare Address [address] [place] [address] Care Team Providers Care Spinning Bath Patroller Name Role Phone Dg Kang MD Primary Care Provider [phone] Amada Rose INVESTMENT RECOVERY TECHNICIAN Unavailable [phone] Encounter Details Date Type Department Care Team (Latest Contact Info) Description 04/06/2025 10:03 AM EDT - 04/06/2025 11:59 PM EDT Hospital Encounter [facility] [address], [address] [place] [address] Closed fracture of eleventh thoracic vertebra with routine healing, unspecified fracture morphology, subsequent encounter Discharge Disposition: Home or Self Care 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 Tobacco Use Types Packs/Day Years Used Date Smoking Tobacco: Never Smokeless Tobacco: Never Alcohol Use Standard Drinks/Week Comments Never 0 [...] and Family Not on file 03/05/2025 Attends [employer] Services Not on file 03/05 Active Member [...] were you homeless or living in a snf (including now)? No 03/05/2025 Utilities Answer Date [...] on file documented as of this encounter Medications at Time of Discharge [...] tablet Take 1 tablet by mouth nightly. documented as of this encounter Plan of Treatment Upcoming Encounters Date Type Department Care Team (Late st Contact Info) Description 05/18/2025 9:20 AM EDT Office Visit [place] [facility] [address], [address] [place] [address] Amada Rose, INEZ [address] [place] [address] documented as of this encounter Procedures Procedure Name Priority Date/Time Associated Diagnosis Comments XR LUMBAR SPINE 2 OR 3 VIEWS Routine 04/06/2025 10:49 AM EDT Closed fracture of eleventh thoracic vertebra with routine healing, unspecified fracture morphology, subsequent encounter XR THORACIC SPINE 2 VIEWS Routine 04/06/2025 10:49 AM EDT Closed fracture of eleventh thoracic vertebra with routine healing, unspecified fracture morphology, subsequent encounter documented in this encounter Results * XR Lumbar Spine 2 or 3 Views (04/06/2025 10:49 AM EDT) Anatomical Region Laterality Modality Spine, L-spine Digital Radiogra phy Impressions 04/06/2025 11:13 AM EDT 1. Known fracture at the anterior inferior aspect of T11 is not perceptible. 2. 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 3. Posterior fusion from L1 to S1 without complication. CRITICAL RESULT: No. COMMUNICATION: Per this written report. Drafted by Rafy Pineda MD on 04/06/2025 11:09 AM Final report signed by Rafy Pineda MD on 04/06/2025 11:13 AM Narrative 04/06/2025 11:13 AM EDT CLINICAL INDICATION: fracture TECHNIQUE: XR THORACIC SPINE 2 VIEWS, XR LUMBAR SPINE 2 OR 3 VIEWS COMPARISON: MRI dated March 03, 2025 FINDINGS: 2 views of the thoracic spine and 2 views of the lumbar spine show multilevel degenerative disc changes in the thoracic spine with bulky osteophyte formation and paravertebral ossification.. Known fracture at the anterior inferior aspect of T11 is not perceptible. Severe degenerative disc changes at T12-L1 with minimal posterior subluxation. Posterior fusion from L1 to S1. No bone destruction. No paraspinal mass. Levoconvex curve at L3. Sacroiliac joints are normal. Procedure Note Rafy Pineda MD - 04/06/2025 CLINICAL INDICATION: fracture TECHNIQUE: XR THORACIC SPINE 2 VIEWS, XR LUMBAR SPINE 2 OR 3 VIEWS COMPARISON: MRI dated March 03, 2025 FINDINGS: 2 views of the thoracic spine and 2 views of the lumbar spine showmultilevel degenerative disc changes in the thoracic spine with bulkyosteophyte formation and paravertebral ossification.. Known fracture atthe anterior inferior aspect of T11 is not perceptible. Severedegenerative disc changes at T12-L1 with minimal posterior subluxation.Posterior fusion from L1 to S1. No bone destruction. No paraspinal mass.Levoconvex curve at L3. Sacroiliac joints are normal. IMPRESSION: 1.Known fracture at the anterior inferior aspect of T11 is notperceptible. 2.Severe multilevel degenerative changes of the thoracic spine withposterior subluxation at T12-L1. 3.Posterior fusion from L1 to S1 without complication. CRITICAL RESULT: No. COMMUNICATION: Per this written report. Drafted by Rafy Pineda MD on 04/06/2025 11:09 AM Final report signed by Rafy Pineda MD on 04/06/2025 11:13 AM Amada John Paul Valeriosoo INVESTMENT RECOVERY TECHNICIAN IMG XR PROCEDURES Final Resu lt * XR Thoracic Spine 2 Views (04/06/2025 10:49 AM EDT) Anatomical Region Laterality Modality Spine, T-spine Digital Radiogra phy Impressions 04/06/2025 11:13 AM EDT 1. Known fracture at the anterior inferior aspect of T11 is not perceptible. 2. 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 3. Posterior fusion from L1 to S1 without complication. CRITICAL RESULT: No. COMMUNICATION: Per this written report. Drafted by Rafy Pineda MD on 04/06/2025 11:09 AM Final report signed by Rafy Pineda MD on 04/06/2025 11:13 AM Narrative 04/06/2025 11:13 AM EDT CLINICAL INDICATION: fracture TECHNIQUE: XR THORACIC SPINE 2 VIEWS, XR LUMBAR SPINE 2 OR 3 VIEWS COMPARISON: MRI dated March 03, 2025 FINDINGS: 2 views of the thoracic spine and 2 views of the lumbar spine show multilevel degenerative disc changes in the thoracic spine with bulky osteophyte formation and paravertebral ossification.. Known fracture at the anterior inferior aspect of T11 is not perceptible. Severe degenerative disc changes at T12-L1 with minimal posterior subluxation. Posterior fusion from L1 to S1. No bone destruction. No paraspinal mass. Levoconvex curve at L3. Sacroiliac joints are normal. Procedure Note Rafy Pineda MD - 04/06/2025 CLINICAL INDICATION: fracture TECHNIQUE: XR THORACIC SPINE 2 VIEWS, XR LUMBAR SPINE 2 OR 3 VIEWS COMPARISON: MRI dated March 03, 2025 FINDINGS: 2 views of the thoracic spine and 2 views of the lumbar spine showmultilevel degenerative disc changes in the thoracic spine with bulkyosteophyte formation and paravertebral ossification.. Known fracture atthe anterior inferior aspect of T11 is not perceptible. Severedegenerative disc changes at T12-L1 with minimal posterior subluxation.Posterior fusion from L1 to S1. No bone destruction. No paraspinal mass.Levoconvex curve at L3. Sacroiliac joints are normal. IMPRESSION: 1.Known fracture at the anterior inferior aspect of T11 is notperceptible. 2.Severe multilevel degenerative changes of the thoracic spine withposterior subluxation at T12-L1. 3.Posterior fusion from L1 to S1 without complication. CRITICAL RESULT: No. COMMUNICATION: Per this written report. Drafted by Rafy Pineda MD on 04/06/2025 11:09 AM Final report signed by Rafy Pineda MD on 04/06/2025 11:13 AM Amada Rose APRN IMG XR PROCEDURES Final Resu lt documented in this encounter Visit Diagnoses Diagnosis Closed fracture of eleventh thoracic vertebra with routine healing, unspecified fracture morphology, subsequent encounter documented in this encounter Additional Health Concerns Assessment Noted Time A Body Mass Index follow-up plan has been documented for the patient 04/06/2025 12:14 PM EDT documented as of this encounter Care Teams Spinning Bath Patroller Relationship Specialty Start Date End Date Dg Kang MD [address] [place] [address] PCP - General 02/03/21 Amada Rose APRN [address] [place] [address] Nurse Practitioner Neurosurgery 04/06/25 documented as of this encounter
--- OUTSIDE RECORDS SUMMARY | 2025-04-06 10:40 | XMS_ITS | Encounter Summary ---
Author Organization Healthcare Address [address] [place] [address] Care Team Providers Care Livestock Haulier Name Role Phone Dg Kang MD Primary Care Provider [phone] Amada Rose FORESTER AIDE Unavailable [phone] Encounter Details Date Type Department Care Team (Late st Contact Info) Description 04/06/2025 10:40 AM EDT Office Visit [place] [facility] [address], [address] [place] [address] Amada Rose, FORESTER AIDE [address] [place] [address] Closed fracture of eleventh thoracic vertebra with routine healing, unspecified fracture morphology, subsequent encounter (Primary Dx); Fall from standing, initial encounter 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 Tobacco Use Types Packs/Day Years [...] and Family Not on file 03/05/2025 Attends Religion Services Not on file 03/05 Active Member [...] any time in the past 12 m [facility], were you homeless or living in a fci (including now)? No 03/05/2025 Utilities Answer Date [...] Sign Reading Time Taken Comments Blood Pressure 100/64 04/06/2025 9:45 AM EDT Pulse - - Temperature - - Respiratory Rate - - Oxygen Saturation - - Inhaled Oxygen Concentration - - Weight 70.8 kg (156 lb) 04/06/2025 9:45 AM EDT Height 161 cm (5' 3.39 ) 04/06/2025 9:45 AM EDT Body Mass Index 27.3 04/06/2025 9:45 AM EDT documented in this encounter Miscellaneous Notes * Progress Notes - Amada Rose, FORESTER AIDE - 04/06/2025 10:40 AM EDT We had the pleasure of seeing your patient in our clinic today for continued Neurosurgical evaluation. Chief Complaint: T11 fracture History Of Present Illness Kelley Hua is a 85 y.o. female with history of an L1-S1 fusion greater than [address] Valentine. Patient was seen in our ED after a fall that caused significant back pain. Patient was seen at an outside hospital and diagnosed with a T11 fracture. Patient reports that she was trying to cross the road with her walker when her walker bumped into something causing her to fall backwards landing on her back. Patient presents today in a TLSO. Patient denies any radicular pain. She denies bowel and bladder incontinence. She denies saddle anesthesia. Patient is quite weak but is working with physical therapy. She has recently been released by rehab in his awaiting home physical therapy. Past Medical History[1] Surgical History[2] Family History[3] 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[4] Current Outpatient Medications Medication Instructions acetaminophen (TYLENOL) 1,000 mg, Every 6 hours PRN aspirin 81 mg, Daily cetirizine (ZYRTEC) 10 mg, Daily cholecalciferol (VITAMIN D-3) 2,000 Units, Daily cyanocobalamin (VITAMIN B-12) 1,000 mcg, Daily gabapentin (NEURONTIN) 600 mg, Nightly levalbuterol (Xopenex) 1.25 MG/3ML nebulizer solution 1 ampule, 3 times daily PRN losartan (COZAAR) 100 mg, Daily MELATONIN PO 1 tablet, Nightly PRN memantine (NAMENDA) 10 mg, 2 times daily methocarbamol (ROBAXIN) 500 mg, Oral, Every 8 hours Multiple Vitamin (Multivitamin) tablet 1 tablet, Daily pantoprazole (PROTONIX) 40 mg, Daily predniSONE (DELTASONE) 20 mg, 3 times daily primidone (MYSOLINE) 250 mg, Nightly propranolol (INDERAL) 60 mg, 2 times daily simvastatin (ZOCOR) 20 mg, Nightly Allergies Sulfa drugs Review of Systems 14 point review of systems was performed and was negative except as noted per HPI. Visit Vitals BP 100/64 Ht 1.61 m (5' 3.39 ) Wt 70.8 kg (156 lb) BMI 27.30 kg/m?? Smoking Status Never BSA 1.78 m?? General Physical Exam Constitutional No acute distress. Patient is appropriate historian and cooperative throughout exam.Well nourished, well groomed. Alert and oriented x4. Head Normocephalic and atraumatic. Eyes Pupils are equal, round, and reactive to light. Neck No tracheal deviation or JVD noted. No previous surgical scars Cardiovascular Minimal to no peripheral edema, intact distal pulses Pulmonary/Chest No increased effort noted, no shortness of breath Neurological Alert and oriented to person, place, and time Skin Skin is warm and dry Psychiatric Normal mood and affect, behavior and judgment MUSCULOSKELETAL EXAM: Upper Extremity Motor Strength Right Left C5: Deltoid 5/5 5/5 C6: Biceps 5/5 5/5 C7: Triceps 5/5 5/5 C8: Finish Photographer 5/5 5/5 T1: Intrinsics 5/5 5/5 Lower Extremity Motor Strength Right Left L2: Hip flexion (Iliopsoas) 4/5 4/5 L3: Knee extension (Quad) 4/5 4/5 L4: Ankle DF (TA) 4/ 4/5 L5: Great Toe DF (EHL) 4/ 4/5 S1: Ankle Pf, Foot Eversion (Peroneal longus/brevis) / 4/5 S2: Great toe flexion (FHL), Knee flexion 4/5 4/5 Sensation Right Left L2: Proximal anterior thigh Normal Normal L3: Mid anterior thigh Normal Normal L4: Medial leg/foot, great toe (Saphenous n.) Normal Normal L5: Dorsum of mid foot Normal Normal S1: Lateral leg/foot, little toe, Back of leg (Sural n.) Normal Normal Reflexes Right Left C5: Biceps 2/4 2/4 C6: Brachialis 2/4 2/4 C7: Triceps 2/4 2/4 L4: Patellar 1/4 1/4 S1: Achilles 0/4 0/4 SLR Negative Negative Clonus Negative Negative Hoffmans Negative Negative Imaging I personally reviewed Patient's x-rays today. Alignment satisfactory. Assessment and Plan Kelley Hua is a 85 y.o. female with history of a T11 fracture after a fall. Patient is going to continue her TLSO. She is going to work with physical therapy. Patient and family given my information and how to contact me with any issues or concerns. We did discuss red flag signs / symptoms.We will follow up with her get repeat x-rays and released her from the TLSO at the end of April. Patient and family provided with return appointment reminder. Amada Rose APRN [facility] Department of Neurosurgery This note was dictated using voice to text software and may contain errors 40 minutes was spent reviewing previous documentation and imaging, completion of today's documentation, [id number] visit, care coordination and planning [1] Past Medical History: Diagnosis Date Dementia (CMS/HCC) Hypertension [2] Past Surgical History: Procedure Laterality Date SPINE SURGERY prior L5-S1 hardware [3] History reviewed. No pertinent family history. [4] 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 Tobacco Use Smoking status: Never Smokeless tobacco: Never Vaping Use Vaping status: Never Used Substance Use Topics Alcohol use: Never Drug use: Never documented in this encounter Plan of Treatment Upcoming Encounters Date Type Department Care Team (Late st Contact Info) Description 05/18/2025 9:20 AM EDT Office Visit [place] [facility] [address], [address] [place] [address] Amada Rose APRN [address] [place] [address] documented as of this encounter Results * XR Thoracic Spine 2 Views (04/06/2025 [...] Rafy Pineda MD on 04/06/2025 11:13 AM us Amada Rose FORESTER AIDE IMG XR PROCEDURES Final Resu lt * XR Lumbar Spine 2 or 3 [...] with routine healing, unspecified fracture morphology, subsequent encounter- Primary Fall from standing, initial encounter Closed fracture of eleventh thoracic vertebra with routine healing, unspecified fracture morphology, subsequent encounter documented in this encounter Additional Health Concerns Assessment Noted Time A Body Mass Index follow-up plan has been documented for the patient 04/06/2025 12:14 PM EDT documented as of this encounter Care Teams Livestock Haulier Relationship Specialty Start Date End Date Dg Kang MD [facility] [place] [address] PCP - General 02/03/21 Amada Rose APRN [address] [facility] [address] [place] [address] Nurse Practitioner Neurosurgery 04/06/25 documented as of this encounter
[2025-04-29 14:04] LABS: Alanine Aminotransferase 34 U/L (12-78); Albumin Level 4.0 g/dl (3.5-5.0); Albumin/Globulin Ratio 2.0 (1.1-1.8); Alkaline Phosphatase 120 U/L (38-126); Anion Gap 11.2 mEq/L (5-15); Aspartate Amino Transferase 35 U/L (14-36); Bilirubin,Total 0.3 mg/dl (0.2-1.3); Blood Urea Nitrogen 12 mg/dl (7-17); Calcium 10.1 mg/dl (8.4-10.2); Carbon Dioxide 28 mmol/L (22.0-30.0); Chloride 102 mmol/L (98-107); Creatinine,Serum 0.70 mg/dl (0.52-1.04); Estimated Glomerular Filt Rate 79 ml/min (>60); GFR (African American) 96 ML/MIN (>60); Globulin 2.0 g/dL (1.3-3.2); Glucose 115 mg/dl (74-100); Potassium 4.2 mmoL/L (3.5-5.1); Sodium 137 mmol/L (136-145); Total Protein,Serum 6.0 g/dl (6.3-8.2)
[2025-04-29 14:35] LABS: Thyroid Stimulating Hormone 1.65 uIU/mL (0.465-4.68)
--- OUTSIDE RECORDS SUMMARY | 2025-04-30 11:32 | XMS_ITS | Patient Health Record ---
Author Organization [facility] [place] Address [address] [facility] [place] [address] Care Team Providers Care Silver Cleaner Name Role Phone MARLEE MEDINA Primary Care Provider [phone] [id number] Jorge Luis Cote, Dg Unavailable Unavailable Reason For Referral No Information Plan Of Treatment No Information Insurance Providers Payer Name Payer Address Payer Phone Subscriber Number Group Number Insured Name Patient Relationship to Insured Coverage Start Date Coverage End Date [employer] [address] [address] [place] [address] [id number] Kelley Hamm Self - patient is the insured
--- OUTSIDE RECORDS SUMMARY | 2025-04-30 11:32 | XMS_ITS | Encounter Summary ---
Author Organization Healthcare Address [address] [place] [address] Care Team Providers Care Paper Rewinder Name Role Phone Dg Kang MD Primary Care Provider [phone] Encounter Details Date Type Department Care Team (Latest Contact Info) Description 03/03/2025 Travel 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 Tobacco Use Types Packs/Day Years Used Date Smoking Tobacco: Never Assessed Comments Unknown Sex and Gender Information Value Date Recorded Sex Assigned at Not on file Legal Sex Female 6:08 PM EDT Gender Identity Not on file Sexual Orientation Not on file documented as of this encounter Plan of Treatment Upcoming Encounters Date Type Department Care Team (Late st Contact Info) Description 05/18/2025 9:20 AM EDT Office Visit [place] [facility] [address] [place] [address] Amada Rose, COMPASS OPERATOR [address] [place] [address] documented as of this encounter Visit Diagnoses Not on filedocumented in this encounter Additional Health Concerns Assessment Noted Time A Body Mass Index follow-up plan has been documented for the patient 03/10/2025 2:13 PM EDT documented as of this encounter Care Teams Paper Rewinder Relationship Specialty Start Date End Date Dg Kang MD [address] [place] [address] PCP - General 02/03/21 documented as of this encounter
--- OUTSIDE RECORDS SUMMARY | 2025-04-30 11:32 | XMS_ITS | Encounter Summary ---
Author Organization Healthcare Address [address] [place] [address] Care Team Providers Care Fabric Lay Out Worker Name Role Phone Dg Kang MD Primary Care Provider [phone] Encounter Details Date Type Department Care Team (Latest Contact Info) Description 03/02/2025 Travel 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 Tobacco Use Types Packs/Day Years Used Date Smoking Tobacco: Never Assessed Comments Unknown Sex and Gender Information Value Date Recorded Sex Assigned at Not on file Legal Sex Female 6:08 PM EDT Gender Identity Not on file Sexual Orientation Not on file documented as of this encounter Functional Status * Calculated C-SSRS Risk Score (Lifetime/Recent) Answer Date of Assessment Author No Risk Indicated 03/02/2025 5:00 PM EDT Melanie Bloom, RN * Question Answer Date of Assessment Author 1. Wish to be (Past 1 Month) No 025 5:00 PM EDT Esther Bloom, RN 2. Non-Specific Active Suici meche Thoughts (Past 1 Month) No 03/02/2025 5:00 PM EDT Esther Bloom, RN 6. Suicidal Behavior (Lifetime) No 5:00 PM EDT Esther Bloom, RN documented as of this encounter Plan of Treatment Upcoming Encounters Date Type Department Care Team (Late st Contact Info) Description 05/18/2025 9:20 AM EDT Office Visit [place] [facility] [address], [address] [place] [address] Amada Rose, JOCKEY'S AGENT [address] [place] [address] documented as of this encounter Visit Diagnoses Not on filedocumented in this encounter Additional Health Concerns Assessment Noted Time A Body Mass Index follow-up plan has been documented for the patient 03/10/2025 2:13 PM EDT documented as of this encounter Care Teams Fabric Lay Out Worker Relationship Specialty Start Date End Date Dg Kang MD [address] [place] [address] [address] [place] [facility] PCP - General 02/03/21 documented as of this encounter
--- OUTSIDE RECORDS SUMMARY | 2025-04-30 11:33 | XMS_ITS | Encounter Summary ---
Author Organization Healthcare Address [address] [place] [address] Care Team Providers Care Court Worker Name Role Phone Dg Kang MD Primary Care Provider [phone] Amada Rose SR. MANAGER CORPORATE COMMUNICATIONS Unavailable [phone] Encounter Details Date Type Department Care Team (Latest Contact Info) Description 04/06/2025 Travel 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 Tobacco Use Types Packs/Day [...] and Family Not on file 03/05/2025 Attends Congregational Services Not on file 03/05 Active Member [...] any time in the past 12 m [facility], were you homeless or living in a nursing home (including now)? No 03/05/2025 Utilities Answer Date [...] 9:20 AM EDT Office Visit [place] [facility] [address] [place] [address] Amada Rose, SR. MANAGER CORPORATE COMMUNICATIONS [address] [place] [address] documented as of this encounter Visit Diagnoses Not on filedocumented in this encounter Additional Health Concerns Assessment Noted Time A Body Mass Index follow-up plan has been documented for the patient 04/06/2025 12:14 PM EDT documented as of this encounter Care Teams Court Worker Relationship Specialty Start Date End Date Dg Kang MD [facility] [address] [place] [address] PCP - General 02/03/21 Amada Rose APRN [address] [place] [address] Nurse Practitioner Neurosurgery 04/06/25 documented as of this encounter
--- OUTSIDE RECORDS SUMMARY | 2025-04-30 11:33 | XMS_ITS | Clinical Summary ---
Author Organization [facility] Address [address] [place] [address] Care Team Providers Care Medical Records Field Technician Name Role Phone Dg Kang MD Primary Care Provider [phone] Amada Rose STATISTICAL CLERK ADVERTISING Unavailable [phone] Allergies Active Allergy Reactions Criticality Noted Date Comments Sulfa Drugs Rash Low 03/02/2025 Medications acetaminophen (Tylenol) 500 MG tablet Take 2 tablets by mouth every 6 hours as needed. Active gabapentin (Neurontin) 300 MG capsule Take 2 capsules by mouth nightly. Active aspirin 81 MG EC tablet Take 1 tablet by mouth daily. Active Multiple Vitamin (Multivitamin) tablet Take 1 tablet by mouth daily. Active cyanocobalamin 1000 MCG tablet Take 1 tablet by mouth daily. Active cholecalciferol (Vitamin D-3) 50 MCG (1999 UT) capsule Take 1 capsule by mouth daily. Active cetirizine (ZyrTEC) 10 MG tablet Take 1 tablet by mouth daily. Active MELATONIN PO Take 1 tablet by mouth at night as needed. Active levalbuterol (Xopenex) 1.25 MG/3ML nebulizer solution Take 1 ampule by nebulization 3 times a day as needed (asthma). Active losartan (Cozaar) 100 MG tablet Take 1 tablet by mouth daily. Active memantine (Namenda) 10 MG tablet Take 1 tablet by mouth 2 times a day. Active pantoprazole (Protonix) 40 MG EC tablet Take 1 tablet by mouth daily. Do not crush, chew, or split. Active predniSONE (Deltasone) 20 MG tablet Take 1 tablet by mouth 3 times a day. Active primidone (Mysoline) 250 MG tablet Take 1 tablet by mouth nightly. Active propranolol (Inderal) 60 MG tablet Take 1 tablet by mouth 2 times a day. Active simvastatin (Zocor) 20 MG tablet Take 1 tablet by mouth nightly. Active methocarbamol (Robaxin) 500 MG tablet Take 1 tablet by mouth every 8 hours for 15 days. Active Additional Information Patient not taking.Reported on 04/06/2025 Active Problems Problem Noted Date Diagnosed Date Delirium 03/04/2025 Assessment & Plan (03/07/2025 8:43 AM EDT): Delirium precautions -Recommend delirium precautions: lights on [...] cycle Resumed home memantine Started seroquel BID Closed T11 fracture 03/03/2025 Assessment & Plan (03/07/2025 8:39 AM EDT): NSGY consulted - No acute neurosurgical intervention - MRI L spine without evidence of ligamentous injury. - Neurosurgery to order TLSO - TLSO to be worn when OOB - Please have patient follow up at [facility] with Neurosurgery NANETTE in 4-6 weeks with AP/Lateral XR of the lumbar spine and AP/Lateral XR of the thoracic spine: [facility] [place] ([facility]) Clinic, [address], 1st floor, [facility] [address] [place] [address] #[phone] HTN (hypertension) 03/03/2025 Overview (03/10/2025): Assessment & Plan (03/07/2025 8:42 AM EDT): home medications Dementia 03/03/2025 Assessment & Plan (03/07/2025 8:42 AM EDT): Resumed home memantine Started seroquel BID Reorient when necessary Delirium precautions Hyponatremia 03/03/2025 Overview (03/10/2025): Assessment & Plan (03/07/2025 8:43 AM EDT): Encourage fluids and nutritional optimization CTM Protein calorie malnutrition 03/03/2025 Assessment & Plan (03/07/2025 8:43 AM EDT): Total protein 5.7 on admission Nutritional optimization Nutritional supplements Cervical spine degeneration 03/03/2025 Assessment & Plan (03/07/2025 8:43 AM EDT): Fluid signal in the central and posterior [...] of intervertebral disc of thoracic region 03/03/2025 Assessment & Plan (03/10/2025 12:00 PM EDT): Degenerative changes are present at the following levels: Multilevel disc bulges, herniations, facet arthropathy, and ligamentum flavum thickening without evidence of high-grade spinal canal or neuroforaminal narrowing. The remaining intervertebral discs demonstrate expected intrinsic T2 hyperintensity. Moderate thoracic spine discogenic disease with osteophytosis. Incidental finding on imaging Follow-up with PCP for surveillance Lumbar degenerative disc disease 03/03/2025 Assessment & Plan (03/10/2025 11:59 AM EDT): Postsurgical changes related to L3-L4 laminectomies with posterior fusion of L1- S1. T12-L1: Disc bulge with bilateral facet arthropathy. L3-L4: Posterior decompression. No significant spinal canal narrowing. The right neuroforamina is patent. Severe left neuroforaminal narrowing. L4-L5: Posterior decompression. No significant spinal canal narrowing. The neural foramina are widely patent. L5-S1: Diffuse disc bulge with central disc extrusion and facet arthropathy. The spinal canal is widely patent. Severe bilateral neuroforaminal narrowing. 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 Moderate right and mild to moderate left hip osteoarthritis Incidental finding on imaging Follow-up with PCP for surveillance Left renal stone 03/03/2025 Assessment & Plan (03/10/2025 11:59 AM EDT): 8mm left-sided renal collecting system stone Incidental finding on imaging Follow-up with PCP for surveillance Urinary retention 03/03/2025 Assessment & Plan (03/10/2025 11:58 AM EDT): Intermittent catheterization x 2 Resolved Fall from standing, initial encounter 03/02/2025 Assessment & Plan (03/07/2025 8:39 AM EDT): Admitted SGT Tertiary exam 03/03 Resolved Problems Problem Noted Date Diagnosed Date Resolved Date Hyperglycemia 03/03/2025 03/07/2025 Overview (03/03/2025): Likely reactive 2/2 trauma Monitor Encounters Date Type Department Care Team Description 04/08/2025 Telephone [facility] [address], [address] [place] [address] Amada Rose APRN HCN - Patient Message 04/06/2025 10:40 AM EDT [facility] Visit [facility] [address], [address] [place] [address] Amada Rose APRN Closed fracture of eleventh thoracic vertebra with routine healing, unspecified fracture morphology, subsequent encounter (Primary Dx); Fall from standing, initial encounter 04/06/2025 10:03 AM EDT - 04/06/2025 11:59 PM EDT [facility] [address], [address] [place] [address] Closed fracture of eleventh thoracic vertebra with routine healing, unspecified fracture morphology, subsequent encounter Discharge Disposition: Home or Self Care 04/06/2025 Travel 03/03/2025 Travel 03/02/2025 4:46 PM EDT - 03/10/2025 2:58 PM EDT Hospital Encounter [facility] [address] [facility] [address] [place] [address] Heron Salinas MD Detelich, MD Amandeep Goodrich, MD Bhupendra Torres Brittany N, MD Bernard, MD Shahrzad Cosme, Bj Barber MD Closed fracture of eleventh thoracic vertebra, unspecified fracture morphology, initial encounter ([facility]) (Primary Dx) Discharge Disposition: Senior Living Facility 03/02/2025 Travel 03/02/2025 Orders Only External Location [address] [place] [address] Provider, External 03/02/2025 Orders Only External Location [address] [place] [address] Provider, External from Last 3 Months 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 Tobacco Use Types Packs/Day Years [...] and Family Not on file 03/05/2025 Attends [employer] Not on file 03/05 Active Member [...] time in the past 12 m [facility], were you homeless or living in a senior care (including now)? No 03/05/2025 Utilities Answer Date Recorded In the past 12 months has e [employer], gas, oil, or water company threatened to shut off services in your home? No 03/05/2025 Comments Unknown Sex and Gender Information Value Date Recorded Sex Assigned at Not on file Legal Sex Female 6:08 PM EDT Gender Identity Not on file Sexual Orientation Not on file Last Filed Vital Signs Vital Sign Reading Time Taken Comments Blood Pressure 100/64 04/06/2025 9:45 AM EDT Pulse 58 03/10/2025 8:22 AM EDT Temperature 36.3 C (97.4 F) 03/10/2025 8:22 AM EDT Respiratory Rate 18 03/10/2025 8:22 AM EDT Oxygen Saturation 95% 03/10/2025 8:22 AM EDT Inhaled Oxygen Concentration - - Weight 70.8 kg (156 lb) 04/06/2025 9:45 AM EDT Height 161 cm (5' 3.39 ) 04/06/2025 9:45 AM EDT Body Mass Index 27.3 04/06/2025 9:45 AM EDT Plan of Treatment Upcoming Encounters Date Type Department Care Team (Late st Contact Info) Description 05/18/2025 9:20 AM EDT Office Visit [place] [facility] [address], [address] [place] [address] Amada Rose, STATISTICAL CLERK ADVERTISING [address] [place] [address] Health Maintenance Due Date Last Done Comments [facility]-Bone Density Scan 1940 [facility]-Depression Screening 1940 [facility]-Medicare Annual Wellness (AWV) 1940 [facility]-Infant/Child/Adol SDOH Screenings 1940 [facility]-DTaP,Tdap,and Td Vaccine s (1 - Tdap) 1958 [facility]-Zoster Vaccines (1 of 2) 1958 [facility]OO-UEKLC-65 Vaccine (4 - season) 2024 08/23/2021, 11/16/2020, 10/19/2020 [facility]-Influenza Vaccine (#1) 05/24/202507/29, 07/07/2024, 06/21/2017 [facility]- SDOH Screenings 09/04/2025 [facility]-Adult SDOH Screenings 09/04/2025 03/05/2025 [facility]-RSV Vaccine: 60+ Years o r Completed 07/01/2023 [facility]-Pneumococcal Vaccine: 50 + Years Completed 07/29/2024, 05/09/2016 [facility]-Obesity Intervention Completed 025, 03/02/2025 HPV Vaccines Aged Out No longer eligi ble based on patient's age to complete this topic [facility]-HIB Vaccines Aged Out No longer e ligible based on patient's age to complete this topic [facility]-Hepatitis A Vaccines Aged Out No longer eligible based on patient's age to complete this topic [facility]-IPV Vaccines Aged Out No longer e ligible based on patient's age to complete this topic [facility]-Rotavirus Vaccines Aged Out No lo nger eligible based on patient's age to complete this topic Procedures Procedure Name Priority Date/Time Associated Diagnosis Comments XR LUMBAR SPINE 2 OR 3 VIEWS Routine 04/06/2025 10:49 AM EDT Closed fracture of eleventh thoracic vertebra with routine healing, unspecified fracture morphology, subsequent encounter XR THORACIC SPINE 2 VIEWS Routine 04/06/2025 10:49 AM EDT Closed fracture of eleventh thoracic vertebra with routine healing, unspecified fracture morphology, subsequent encounter URINALYSIS WITH REFLEX MICROSCOPIC STAT 03/03/2025 7:59 AM EDT MR LUMBAR SPINE WO IV CONTRAST STAT 03/03/2025 3:39 AM EDT MR THORACIC SPINE WO IV CONTRAST STAT 03/03/2025 3:39 AM EDT MR CERVICAL SPINE WO IV CONTRAST STAT 03/03/2025 3:39 AM EDT XR EYE FOREIGN BODY STAT 03/02/2025 8 :01 PM EDT XR ABDOMEN 1 VIEW STAT 03/02/2025 8:0 1 PM EDT XR CHEST 1 VIEW STAT 03/02/2025 8:01 PM EDT EXTRA TUBE LIGHT GREEN TOP Routine 03/02/2025 6:44 PM EDT EXTRA TUBES Routine 03/02/2025 6:44 PM EDT ED HIV 1/2 ANTIBODY/ANTIGEN SCREEN WITH REFLEX TO HIV I/II DIFFERENTIATION STAT 03/02/2025 6:44 PM EDT ED PROTOCOL HIV 1/2 ANTIBODY/ANTIGEN SCREEN W/REFLEX TO HIV 1/2 ANTIBODY DIFFERENTIATION STAT 03/02/2025 6:44 PM EDT HEPATITIS C ANTIBODY - ED W/REFLEX TO HCV QUANT PCR STAT 03/02/2025 6:44 PM EDT MAGNESIUM, PLASMA STAT 03/02/2025 6:4 4 PM EDT COMPREHENSIVE METABOLIC PANEL, PLASMA STAT 03/02/2025 6:44 PM EDT TYPE AND SCREEN STAT 03/02/2025 6:44 PM EDT PROTHROMBIN TIME(PT) / INR STAT 03/02/2025 6:44 PM EDT CBC WITH AUTO DIFFERENTIAL STAT 03/02/2025 6:44 PM EDT ECG ADULT STAT 03/02/2025 6:[address] OUTSIDE IMAGES 03/02/2025 1:[address] OUTSIDE IMAGES 03/02/2025 1:2 1 PM EDT from Last 3 Months Results * XR Lumbar Spine 2 or [...] MD on 04/06/2025 11:13 AM Amada Rose STATISTICAL CLERK ADVERTISING IMG XR PROCEDURES Final Resu lt * [...] MD on 04/06/2025 11:13 AM Amada Rose STATISTICAL CLERK ADVERTISING IMG XR PROCEDURES Final Resu lt * Urinalysis with reflex microscopic (Culture NOT Included) (03/03/2025 7:59 AM EDT) Color, Urine Yellow LAB URINALYSIS - AUTOMATED METHOD 03/03/2025 8:06 AM EDT [facility] Clarity, Urine Clear LAB URINALYSIS - AUTOMATED METHOD 03/03/2025 8:06 AM EDT [facility] Spec [place], Urine 1.016 1.005 - 1.030 LAB URINALYSIS - AUTOMATED METHOD 03/03/2025 8:06 AM EDT [facility] pH, Urine 6.5 5.0 - 8.0 LAB URINALYSIS - AUTOMATED METHOD 03/03/2025 8:06 AM EDT [facility] Protein, Urine Negative Negative mg/dL LAB URINALYSIS - AUTOMATED METHOD 03/03/2025 8:06 AM EDT [facility] Glucose, Urine Negative Negative mg/dL LAB URINALYSIS - AUTOMATED METHOD 03/03/2025 8:06 AM EDT [facility] Ketones, Urine Negative Negative mg/dL LAB URINALYSIS - AUTOMATED METHOD 03/03/2025 8:06 AM EDT [facility] Blood, Urine Negative Negative LAB URINALYSIS - AUTOMATED METHOD 03/03/2025 8:06 AM EDT [facility] Bilirubin, Urine Negative Negative LAB URINALYSIS - AUTOMATED METHOD 03/03/2025 8:06 AM EDT [facility] Urobilinogen, Urine 0.2 0.2 to 1.0 mg/dL LAB URINALYSIS - AUTOMATED METHOD 03/03/2025 8:06 AM EDT [facility] Leukocytes, Urine Negative Negative LAB URINALYSIS - AUTOMATED METHOD 03/03/2025 8:06 AM EDT [facility] Nitrite, Urine Negative Negative LAB URINALYSIS - AUTOMATED METHOD 03/03/2025 8:06 AM EDT [facility] Urine Urine specimen obtained by clean catch procedure / Unknown Non-blood Collection / Unknown 03/03/2025 7:59 AM EDT 03/03/2025 8:03 AM EDT us Heron Salinas MD LAB URINE ORDERABLES Final R esult [facility] [address] [place] [address] * MR Lumbar Spine wo IV Contrast [...] the inferior endplate and extending into the [id number] disc. *No evidence of fracture or traumatic [...] Bradley Clemente MD on 03/03/2025 5:36 AM Heron Salinas MD IMG MRI PROCEDURES Final Res [...] or mass. Other Findings: None. Procedure Note Bardley Clemente MD - 03/03/2025 CLINICAL INDICATION: Neck [...] the inferior endplate and extending into the [id number] disc. *No evidence of fracture or traumatic [...] Clemente MD on 03/03/2025 5:36 AM us Heron Salinas MD IMG MRI PROCEDURES Final Res [...] the inferior endplate and extending into the [id number] disc. *No evidence of fracture or traumatic [...] Clemente MD on 03/03/2025 5:36 AM us Heron Salinas MD IMG MRI PROCEDURES Final Res ult * XR Chest 1 View (03/02/2025 8:01 [...] Albrecht MD on 03/02/2025 8:37 PM us Heron Salinas MD IMG XR PROCEDURES Final Resu [...] Virgil Albrecht MD on 03/02/2025 8:37 PM Heron Salinas MD IMG XR PROCEDURES Final Resu lt * XR Eye Foreign Body (03/02/2025 8:01 [...] Bradley Clemente MD on 03/02/2025 8:31 PM Heron Salinas MD IMG XR PROCEDURES Final Resu lt * ED HIV 1/2 Antibody/Antigen Screen w/Reflex to HIV 1/2 Differentiation (03/02/2025 6:44 PM EDT) [facility] HIV 1 & 2 Antibody/Antigen Screen Non Reactive Non Reactive 03/02/2025 7:48 PM EDT [facility] Comment:Screening for HIV 1 & 2 antibodies, and P24 antigen is NONREACTIVE. No confirmatory testing is required. Blood Venous blood specimen / Unknown Venipuncture / Unknown 03/02/2025 6:44 PM EDT 03/02/2025 7:02 PM EDT us Heron Salinas MD LAB BLOOD ORDERABLES Final R esult [facility] [address] [place] [address] * Light Green Top (03/02/2025 6:44 PM EDT) [facility] Extra Hold for add-ons 03/02/2025 9:02 PM EDT [facility] Comment:Auto resulted. Blood Venous blood specimen / Unknown 03/02/2025 6:44 PM EDT 03/02/2025 6:53 PM EDT us Heron Salinas MD LAB BLOOD ORDERABLES Final R esult Performing Organization Address City/[facility]/ZIP Co de Phone Number [facility] [address] [place] [address] * Hepatitis C Antibody - ED (03/02/2025 6:44 PM EDT) [facility] Hepatitis C Antibody Negative Negative 03/02/2025 7:48 PM EDT [facility] Blood Venous blood specimen / Unknown Venipuncture / Unknown 03/02/2025 6:44 PM EDT 03/02/2025 7:02 PM EDT us Heron Salinas MD LAB BLOOD ORDERABLES Final R esult [facility] [address] [place] [address] * PT-INR (03/02/2025 6:44 PM EDT) [facility] Prothrombin Time 13.1 12.0 - 14.3 sec 03/02/2025 7:04 PM EDT [facility] INR 1.0 0.9 - 1.1 03/02/2025 7:04 PM EDT [facility] Blood Venous blood specimen / Unknown Venipuncture / Unknown 03/02/2025 6:44 PM EDT 03/02/2025 6:[address] [facility] - 03/02/2025 7:04 PM EDT OPTIMAL INR RANGES FOR PATIENT ON ORAL ANTICOAGULANT THERAPY Prevention of venous thromboembolism INR 2.0 to 3.0 In patients with heart disease: Atrial fibrillation INR 2.0 to 3.0 Valvular heart disease INR 2.0 to 3.0 Tissue heart valves INR 2.0 to 3.0 Mechanical prosthetic valves INR 2.5 to 3.5 Prevention of recurrent VT INR 2.5 to 3.5 us Heron Salinas MD LAB BLOOD ORDERABLES Final R esult [facility] [address] [place] [address] * (ABNORMAL) CBC w/diff (03/02/2025 6:44 PM EDT) [facility] WBC Count 7.31 3.70 - 10.30 10*3/uL LAB HEMATOLOGY METHOD 03/02/2025 6:52 PM EDT [facility] RBC Count 3.91 3.90 - 5.20 10*6/uL LAB HEMATOLOGY METHOD 03/02/2025 6:52 PM EDT [facility] HGB 12.0 11.2 - 15.7 g/dL LAB HEMATOLOGY METHOD 03/02/2025 6:52 PM EDT [facility] HCT 34.7 34.0 - 45.0 % LAB HEMATOLOGY METHOD 03/02/2025 6:52 PM EDT [facility] Platelet Count 161 155 - 369 10*3/uL LAB HEMATOLOGY METHOD 03/02/2025 6:52 PM EDT [facility] MCV 89 79 - 98 fL LAB HEMATOLOGY METHOD 03/02/2025 6:52 PM EDT [facility] MCH 30.7 26.0 - 32.0 pg LAB HEMATOLOGY METHOD 03/02/2025 6:52 PM EDT [facility] MCHC 34.6 30.7 - 35.5 g/dL LAB HEMATOLOGY METHOD 03/02/2025 6:52 PM EDT [facility] RDW 14.3 11.5 - 14.5 % LAB HEMATOLOGY METHOD 03/02/2025 6:52 PM EDT [facility] MPV 9.3 8.8 - 12.5 fL LAB HEMATOLOGY METHOD 03/02/2025 6:52 PM EDT [facility] nRBC 0.0 <=0.0 per 100 WBCs LAB HEMATOLOGY METHOD 03/02/2025 6:52 PM EDT [facility] Differential Type Automated LAB HEMATOLOGY METHOD 03/02/2025 6:52 PM EDT [facility] Neutrophils % 78 % LAB HEMATOLOGY METHOD 03/02/2025 6:52 PM EDT [facility] Lymphocytes % 10 % LAB HEMATOLOGY METHOD 03/02/2025 6:52 PM EDT [facility] Monocytes % 8 % LAB HEMATOLOGY METHOD 03/02/2025 6:52 PM EDT [facility] Eosinophils % 2 % LAB HEMATOLOGY METHOD 03/02/2025 6:52 PM EDT [facility] Basophils % 1 % LAB HEMATOLOGY METHOD 03/02/2025 6:52 PM EDT [facility] Immature Granulocytes % 1 % LAB HEMATOLOGY METHOD 03/02/2025 6:52 PM EDT [facility] Neutrophils Absolute 5.69 1.60 - 6.10 10*3/uL LAB HEMATOLOGY METHOD 03/02/2025 6:52 PM EDT [facility] Lymphocytes Absolute 0.76(L) 1.20 - 3.90 10*3/uL LAB HEMATOLOGY METHOD 03/02/2025 6:52 PM EDT [facility] Monocytes Absolute 0.60 0.30 - 0.90 10*3/uL LAB HEMATOLOGY METHOD 03/02/2025 6:52 PM EDT [facility] Eosinophils Absolute 0.15 0.00 - 0.50 10*3/uL LAB HEMATOLOGY METHOD 03/02/2025 6:52 PM EDT [facility] Basophils Absolute 0.06 0.00 - 0.10 10*3/uL LAB HEMATOLOGY METHOD 03/02/2025 6:52 PM EDT [facility] Immature Granulocytes Absolute 0.05 0.00 - 0.06 10*3/uL LAB HEMATOLOGY METHOD 03/02/2025 6:52 PM EDT [facility] Blood Venous blood specimen / Unknown Venipuncture / Unknown 03/02/2025 6:44 PM EDT 03/02/2025 6:49 PM EDT Narrative [facility] - 03/02/2025 6:52 PM EDT Therapeutic decision making should be based on absolute values, rather than percentages. us Heron Salinas MD LAB BLOOD ORDERABLES Final R esult [facility] [address] [place] [address] * Type and screen (03/02/2025 6:44 PM EDT) ABO/Rh O Positive 03/02/2025 6:08 PM EDT [facility] Antibody Screen Negative 03/02/2025 6:08 PM EDT [facility] Specimen Expiration 03/05/2025 23:59 03/02/2025 6:08 PM EDT [facility] Blood Venous blood specimen / Unknown Venipuncture / Unknown 03/02/2025 6:44 PM EDT 03/02/2025 6:51 PM EDT us Heron Salinas MD LAB BLOOD BANK TEST ORDERABL ES Final Result Performing Organization Address City/[facility]/ZIP Co de Phone Number BLOOD BANK [address] [place] [address], [place] * Magnesium (03/02/2025 6:44 PM EDT) Magnesium, Plasma 1.9 1.9 - 2.4 mg/dL 03/02/2025 7:09 PM EDT [facility] Blood Venous blood specimen / Unknown Venipuncture / Unknown 03/02/2025 6:44 PM EDT 03/02/2025 6:49 PM EDT us Heron Salinas MD LAB BLOOD ORDERABLES Final R esult [facility] [address] [place] [address] * (ABNORMAL) CMP (03/02/2025 6:44 PM EDT) Glucose, Plasma 107(H) 74 - 99 mg/dL 03/02/2025 7:09 PM EDT [facility] BUN, Plasma 24(H) 8 - 23 mg/dL 03/02/2025 7:09 PM EDT [facility] Creatinine, Plasma 1.02 0.60 - 1.10 mg/dL 03/02/2025 7:09 PM EDT [facility] BUN/Creatinine Ratio 24 03/02/2025 7:09 PM EDT [facility] Sodium, Plasma 130(L) 136 - 145 mmol/L 03/02/2025 7:09 PM EDT [facility] Potassium, Plasma 4.8 3.6 - 4.9 mmol/L 03/02/2025 7:09 PM EDT [facility] Chloride, Plasma 96(L) 97 - 107 mmol/L 03/02/2025 7:09 PM EDT [facility] CO2, Plasma 24 22 - 29 mmol/L 03/02/2025 7:09 PM EDT [facility] Anion Gap 10 6 - 16 mmol/L 03/02/2025 7:09 PM EDT [facility] Total Calcium, Plasma 8.8(L) 8.9 - 10.2 mg/dL 03/02/2025 7:09 PM EDT [facility] Total Protein 5.7(L) 6.3 - 7.9 g/dL 03/02/2025 7:09 PM EDT [facility] Albumin, Plasma 3.6 3.5 - 5.2 g/dL 03/02/2025 7:09 PM EDT [facility] AST, Plasma 19 10 - 35 U/L 03/02/2025 7:09 PM EDT [facility] Comment:Hemolyzed, result ma y be falsely increased. ALT, Plasma 25 10 - 35 U/L 03/02/2025 7:09 PM EDT [facility] Alkaline Phosphatase, Plasma 92 46 - 142 U/L 03/02/2025 7:09 PM EDT [facility] Total Bilirubin, Plasma 0.4 0.2 - 1.1 mg/dL 03/02/2025 7:09 PM EDT [facility] eGFRcr 54.0 mL/min/1.7 3m*2 03/02/2025 7:09 PM EDT [facility] Comment:Reported eGFRcr in m L/min/1.73m2 is based the CKD-EPI 2020 equation that does not use a race coefficient. Blood Venous blood specimen / Unknown Venipuncture / Unknown 03/02/2025 6:44 PM EDT 03/02/2025 6:49 PM EDT us Heron Salinas MD LAB BLOOD ORDERABLES Final R esult Performing Organization Address City/[facility]/ZIP Co de Phone Number [facility] [address] [place] [address] * EKG now - STAT (adult) (03/02/2025 6:12 PM EDT) EKG DIAGNOSIS CLASS Abnormal MUSE ECG Ventricular Rate 66 BPM MUSE ECG Atrial Rate 66 BPM MUSE ECG [place] Interval 104 ms MUSE ECG QRSD Interval 76 ms MUSE ECG QT Interval 398 ms MUSE ECG QTC Interval 417 ms MUSE ECG P [place] 85 degrees MUSE ECG R [place] -31 degrees MUSE ECG T Wave [place] 9 degrees MUSE ECG Diagnosis Sinus rhythm with short [place] MUSE ECG Diagnosis Left axis deviation MUSE ECG Diagnosis Poor R-wave progression Cannot rule out Anterior infarct , age undetermined MUSE ECG Diagnosis Abnormal ECG MUSE ECG Diagnosis Need clinical information and correlation MUSE ECG Diagnosis Confirmed by Mynor Baptiste ([id number]) on 03/02/2025 7:25:29 PM MUSE ECG 03/02/2025 6:12 PM EDT 03/02/2025 7:25 PM EDT us Heron Salinas MD ECG ORDERABLES Final Result Performing Organization Address City/[facility]/ZIP Co de Phone Number MUSE ECG * CT OUTSIDE IMAGES (03/02/2025 1:24 PM EDT) Only the most recent of2 resultswithin the time period is included. Anatomical Region Laterality Modality Computed Tomogra phy 03/02/2025 1:24 PM EDT us External Provider IMG CT PROCEDURES Final Result from Last 3 Months Insurance [facility] MEDICARE MEDICAID-[place] Advance Directives * Full Code (Latest Code Status on File) Date Activated Date Inactivated Comments 03/02/2025 10:47 PM 03/10/2025 4:58 PM Question Answer Comments I have reviewed the capacity from the link above and, if needed, have updated to appropriate status: Yes Care Teams Medical Records Field Technician Relationship Specialty Start Date End Date Dg Kang MD [address] [facility] [address] [place] [address] PCP - General 02/03/21 Amada Rose APRN [address] [place] [address] Nurse Practitioner Neurosurgery 04/06/25
--- OUTSIDE RECORDS SUMMARY | 2025-04-30 11:33 | XMS_ITS | Encounter Summary ---
Author Organization Healthcare Address [address] [place] [address] Care Team Providers Care Pinion And Wheel Truer Name Role Phone Dg Kang MD Primary Care Provider [phone] Encounter Details Date Type Department Care Team (Late st Contact Info) Description 03/02/2025 Orders Only External Location [address] [place] [address] Provider, External 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 Tobacco Use Types Packs/Day Years Used Date Smoking Tobacco: Never Assessed Humiliation, Afraid, Rape, and Kick questionnair e [...] and Family Not on file 03/05/2025 Attends Jain Services Not on file 03/05 Active Member [...] any time in the past 12 m [facility], were you homeless or living in a [facility] (including now)? No 03/05/2025 Utilities Answer Date Recorded In the past 12 months has th e [employer], gas, oil, or water company threatened to shut off services in your home? No 03/05/2025 Comments Unknown Sex and Gender Information Value Date Recorded Sex Assigned at Not on file Legal Sex Female 6:08 PM EDT Gender Identity Not on file Sexual Orientation Not on file documented as of this encounter Functional Status * AUDIT-C Score Answer Date of Assessment Author 0 03/05/2025 10:15 PM EDT Connie Hua * Question Answer Date of Assessment Author Q1: How often do you have a drink containing alcohol? Never 03/05/2025 10:15 PM EDT Connie Hua Q2: How many drinks containing alcohol do you have on a typical day when you are drinking? Patient does not drink 03/05/2025 10:15 PM EDT Connie Hua Q3: How often do you have six or more drinks on one occasion? Never 03/05/2025 10:15 PM EDT Connie Hua * Calculated C-SSRS Risk Score (Lifetime/Recent) Answer Date of Assessment Author No Risk Indicated 03/08/2025 7:00 AM EDT Everardo Page * Question Answer Date of Assessment Author 1. Wish to be (Past 1 Month) No 025 7:00 AM EDT Everardo Page 2. Non-Specific Active Suici meche Thoughts (Past 1 Month) No 03/08/2025 7:00 AM EDT Louis Page 6. Suicidal Behavior (Lifetime) No 7:00 AM EDT Everardo Page documented as of this encounter Plan of Treatment Upcoming Encounters Date Type Department Care Team (Late st Contact Info) Description 05/18/2025 9:20 AM EDT Office Visit [place] [facility] [address], [address] [place] [address] Amada Rose, PAYROLL ACCOUNTING CLERK [address] [place] [address] documented as of this encounter Procedures Procedure Name Priority Date/Time Associated Diagnosis Comments CT OUTSIDE IMAGES 03/02/2025 1:21 PM EDT documented in this encounter Results * CT OUTSIDE IMAGES (03/02/2025 1:21 PM EDT) Anatomical Region Laterality Modality Computed Tomogra phy 03/02/2025 1:21 PM EDT us External Provider IMG CT PROCEDURES Final Result documented in this encounter Visit Diagnoses Not on filedocumented in this encounter Additional Health Concerns Assessment Noted Time A Body Mass Index follow-up plan has been documented for the patient 03/10/2025 2:13 PM EDT documented as of this encounter Care Teams Pinion And Wheel Truer Relationship Specialty Start Date End Date Dg Kang MD [address] [place] [address] PCP - General 02/03/21 documented as of this encounter
--- OUTSIDE RECORDS SUMMARY | 2025-04-30 11:33 | XMS_ITS | Encounter Summary ---
Author Organization Healthcare Address [address] [place] [address] Care Team Providers Care Ophthalmic Technician Apprentice Name Role Phone Dg Kang MD Primary Care Provider [phone] Amada Rose MILL ATTENDANT Unavailable [phone] Reason for Visit * Reason Onset Date Comments HCN - Patient Message 04/08/2025 Encounter Details Date Type Department Care Team (Late st Contact Info) Description 04/08/2025 [facility]phone [facility] [address] [place] [address] Amada Rose, MILL ATTENDANT [address] [place] [address] HCN - Patient Message 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 Tobacco Use Types Packs/Day Years [...] and Family Not on file 03/05/2025 Attends Yazdanism Services Not on file 03/05 Active Member [...] on file documented as of this encounter Miscellaneous Notes * Telephone Encounter - Shira Peterson - 04/08/2025 8:57 AM EDT Patient Phone Message Reason for Call: Does the pt need to remain on muscle relaxer ? Best contact number and optimal time of day to reach caller: Leah [phone] Note: Please do not reply to this message. Follow-up communication and further actions as a result of this message need to be communicated with the patient directly, if the patient is not active onMyChart. If the patient is active on MyChart, they will receive notification of the communication/outcome via [employer]. documented in this encounter Plan of Treatment Upcoming Encounters Date Type Department Care Team (Late st Contact Info) Description 05/18/2025 9:20 AM EDT [facility] [address] [place] [address] Amada Rose APRN [address] [address] documented as of this encounter Visit Diagnoses Not on filedocumented in this encounter Additional Health Concerns Assessment Noted Time A Body Mass Index follow-up plan has been documented for the patient 04/06/2025 12:14 PM EDT documented as of this encounter Care Teams Ophthalmic Technician Apprentice Relationship Specialty Start Date End Date Dg Kang MD [address] [facility] [address] [place] [address] PCP - General 02/03/21 Amada Rose APRN [address] [place] [address] Nurse Practitioner Neurosurgery 04/06/25 documented as of this encounter
--- OUTSIDE RECORDS SUMMARY | 2025-04-30 11:33 | XMS_ITS | Encounter Summary ---
Author Organization Healthcare Address [address] [place] [address] Care Team Providers Care Mesh Worker Name Role Phone Dg Kang MD Primary Care Provider [phone] Encounter Details Date Type Department Care Team (Late st Contact Info) Description 03/02/2025 Orders Only External Location [address] [place] [address] Provider, External 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 Tobacco Use Types [...] and Family Not on file 03/05/2025 Attends Worship Services Not on file 03/05 Active Member [...] any time in the past 12 m [facility], were you homeless or living in a correction (including now)? No 03/05/2025 Utilities Answer Date Recorded In the past 12 months has th e [employer], gas, oil, or water company threatened to [...] containing alcohol? Never 03/05/2025 10:15 PM EDT Conine Hua Q2: How many drinks containing alcohol [...] Description 05/18/2025 9:20 AM EDT Office Visit [place] [facility] [address], [address] [place] [address] Amada Rose, AREA SECRETARY [address] [place] [address] documented as of this encounter Procedures Procedure Name Priority Date/Time Associated Diagnosis Comments CT OUTSIDE IMAGES 03/02/2025 1:24 PM EDT documented in this encounter Results * CT OUTSIDE IMAGES (03/02/2025 1:24 PM EDT) Anatomical Region Laterality Modality Computed Tomogra phy 03/02/2025 1:24 PM EDT us External Provider IMG CT PROCEDURES Final Result documented in this encounter Visit Diagnoses Not on filedocumented in this encounter Additional Health Concerns Assessment Noted Time A Body Mass Index follow-up plan has been documented for the patient 03/10/2025 2:13 PM EDT documented as of this encounter Care Teams Mesh Worker Relationship Specialty Start Date End Date Dg Kang MD [address] [place] [address] PCP - General 02/03/21 documented as of this encounter
[2025-04-30 15:12] LABS: Cortisol,AM 6.5 ug/dL (6.2-19.4)
== END 2025-04-29 23:59 | disposition home or self-care (01) ==
LOC: LAB.DROPOF 04-30 11:29
PROVIDERS: PCP Internal Medicine; Visit Provider Internal Medicine
DX: G30.9 Alzheimer's disease, unspecified (principal); F02.80 Dementia in other diseases classified elsewhere, unspecified severity, without behavioral disturbance, psychotic disturbance, mood disturbance, and anxiety; R25.1 Tremor, unspecified; E87.1 Hypo-osmolality and hyponatremia; I10 Essential (primary) hypertension; M15.0 Primary generalized (osteo)arthritis
CPT/HCPCS: 80053; 80184; 82533; 84443

== ENCOUNTER 2025-05-05 11:55 | Emergency (ER) | payer MEDICARE, MEDICAID, SELFPAY ==
--- OUTSIDE RECORDS SUMMARY | 2025-03-02 16:46 | XMS_ITS | Encounter Summary ---
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 continue to [...] Note Kelley Moncada 84 y.o. female CSN: [id number] Admission: 03/02/2025 4:46 PM Primary Problem: Fall [...] 8:53 AM EDT 03/04/25 Kelley Moncada HPI Kelley Moncada is a [...] friend in the room. Awake and alert. KALTAG. Disoriented. Able to respond to simple commands. [...] voiding spontaneously with purewick. Last BM was CHIEF ORTHOPTIST. Bowel regimen in place. Home medications resumed. Discussed plan of care with patient/family friend, RN, CM, and Pharm D who isin understanding. No further concerns per patient or nursing. Edited by: Cintia Duckworth, INTERNATIONAL REPRESENTATIVE, DNP at 03/04/2025 8509 Relevant review of systems was obtained as [...] - Please have patient follow up at [facility] with Neurosurgery NANETTE in 4-6 weeks with AP/Lateral XR of thelumbar spine and AP/Lateral XR of the thoracic spine: [facility] [place] ([facility]) Clinic, [address], 1st floor, [address] [place] [address] #[phone] HTN (hypertension) Yes Overview Signed 03/03/2025 5:50 [...] by: Cintia Duckworth APRN, DNP at 03/04/2025 2383 Cintia Duckworth APRN, DNP * Clinician Note - Wolf Ferreira - 03/04/2025 8:24 AM EDT Physical Therapy Attempt Patient Name: Kelley oMncada Today's Date: 03/04/2025 Patient was attempted to [...] fitting. * Progress Notes - Cintia Duckworth, INTERNATIONAL REPRESENTATIVE, DNP - 03/03/2025 9:35 AM EDT TRAUMA [...] everett catheter with medication. Last BM was CHIEF ORTHOPTIST, according to granddaughter yesterday. Pain is well controlled. Tertiary exam completed. Denies smoking, alcohol intake, and illicit substance use. Discussed plan of care with patient/family, who is in understanding. No further concerns per patient or nursing. Edited by: Cintia Duckworth, INEZ, DNP at 03/03/2025 2540 Are there limits on this patient's care [...] - Please have patient follow up at [facility] with Neurosurgery NANETTE in 4-6 weeks with AP/Lateral XR of thelumbar spine and AP/Lateral XR of the thoracic spine: [facility] [place] ([facility]) Clinic, [address], 1st floor, [address] [place] [address] #[phone] HTN (hypertension) Yes Overview Signed 03/03/2025 5:50 [...] Yes Overview Signed 03/03/2025 6:02 PM by Cintia Duckworth APRN, DNP Intermittent [...] by: Cintia Duckworth APRN, DNP at 03/03/2025 2188 Cintia Duckworth APRN, DNP New diagnoses, need [...] - Please have patient follow up at [facility] with Neurosurgery NANETTE in 4-6 weeks with AP/Lateral XR of thelumbar spine and AP/Lateral XR of the thoracic spine: [facility] [place] ([facility]) Clinic, [address], 1st floor, [facility]. [address] [place] [address] #[phone] - Rest of care per primary Kal Castro MD Resident Physician, PGY-2 Department of neurosurgery Pager: [phone] [1] Current Facility-Administered Medications Medication Dose Route [...] Braced. Medically ready for subacute. Patient to [place] to [facility] in [place]. Discussed care plan with family, nursing, and [...] stay, and so will be discharged to [facility] rehab. DVT prophylaxis: None at [place] Procedures: Non-operative management Mobility Restrictions: No mobility [...] chronic conditions/medications Neurosurgery: 04/06/25 at 10am @ [facility] [place] ([facility]) Clinic, [address], 1st floor, [facility] [address], [place] [address] #[phone] SGT: NANETTE Saturday Clinic as needed; [address], [place] Clinic First Floor, Wing [address] Room [address] [place] [address], #[phone]. Questions or Concerns and Appointments If there are questions or concerns after discharge from the hospital, please call [phone] and ask for [facility] Nurse. Working hours are Saturday - Saturday 8:00 AM to 4:00 PM. After hours, weekends and holidays please call [phone] and ask for the resident local telephone operator for [facility]. For appointments please call [phone]. Medication requests should be made between the hours of 9:00 AM to 3:00 PM Saturday thru Saturday. Please note that based upon recent changes to [place] law related to prescribing opioid pain medications, [...] Date: 03/02/25 Arrival Time: 4:46pm Referring Hospital: [facility] Injury Date: 02/21/25 Injury Time: unknown Transport [...] kg (176 lb 9.4 oz), SpO2 96%. [facility] Sue Coma Scale Best Eye Response: Spontaneous [...] from standing, initial encounter Closed T11 fracture ([facility]) Plan: - admit SGT - neurosurgery consulted, f/u recs - f/u MRIs - PT/OT - home meds as able once verified [1] No family history on file. [2] Current Facility-Administered Medications Medication Dose Route Frequency Provider Last Rate Last Admin acetaminophen (Tylenol) tablet 650 mg 650 mg Oral q6h [facility] Ellis Canales MD 650 mg at [...] 03/08/2025 1:27 PM EDT Associated attestation - Dank Davenport MD - 03/08/2025 1:27 PM EDT [...] weakness. Comments: Awake Psychiatric: Behavior: Behavior normal. [facility] Coma Scale Score: 15 ED Course & [...] ELLIS 03/02/252246 Full code Continuous Acknowledged [facility] 03/02/252246 NPO diet Diet effective now Acknowledged [facility] 03/02/252246 Place sequential compression device Until discontinued Comments: SCDs must be in place and turned on EXCEPT when ACTIVELY ambulating. Acknowledged [facility] 03/02/252246 OT eval and treat Until therapy completed Lien [facility] 03/02/252246 PT eval and treat Until therapy completed Acknowledged [facility] 03/02/252246 Do Not Give Nicotine Replacement Until discontinued Acknowledged [facility] 03/02/252246 Mobility Orders Until discontinued Acknowledged [facility] 03/02/252246 Incentive spirometry Every 1 hour while awake Lien [facility] 03/02/252246 Notify Provider Until discontinued Acknowledged [facility] 03/02/252246 Vital Signs Until discontinued Comments: Every 1Hr x4, Then Every 4hrs Thereafter. Acknowledged [facility] 03/02/252246 Intake and Output - Strict Per unit protocol Lien [facility] 03/02/252246 Insert peripheral IV Once Placed in And Linked Group Acknowledged [facility] 03/02/252246 Saline lock IV Once Placed in [...] None Disposition Admit Admitting/Attending Physician: DANK DAVENPORT [[id number]] Provider Care Team: SGT FLOOR 6 [602] Are they the primary team?: Yes [1] - [1] No past medical history on file. [2] No past surgical history on file. [3] No family history on file. [4] [5] Allergies Allergen Reactions Sulfa Drugs Rash Tina Chang MD Resident 03/03/25 0656 Cosigned by [...] Description 05/18/2025 9:20 AM EDT Office Visit [facility] [address], [address] [place] [address] Amada Rose, INTERNATIONAL REPRESENTATIVE [address] [place] [address] documented as of this encounter [...] - AUTOMATED METHOD 03/03/2025 8:06 AM EDT [facility] Clarity, Urine Clear LAB URINALYSIS - AUTOMATED METHOD 03/03/2025 8:06 AM EDT [facility] Spec [place], Urine 1.016 1.005 - 1.030 LAB URINALYSIS - AUTOMATED METHOD 03/03/2025 8:06 AM EDT [facility] pH, Urine 6.5 5.0 - 8.0 LAB URINALYSIS - AUTOMATED METHOD 03/03/2025 8:06 AM EDT [facility] Protein, Urine Negative Negative mg/dL LAB URINALYSIS - AUTOMATED METHOD 03/03/2025 8:06 AM EDT [facility] Glucose, Urine Negative Negative mg/dL LAB URINALYSIS - AUTOMATED METHOD 03/03/2025 8:06 AM EDT [facility] Ketones, Urine Negative Negative mg/dL LAB URINALYSIS - AUTOMATED METHOD 03/03/2025 8:06 AM EDT [facility] Blood, Urine Negative Negative LAB URINALYSIS - AUTOMATED METHOD 03/03/2025 8:06 AM EDT [facility] Bilirubin, Urine Negative Negative LAB URINALYSIS - AUTOMATED METHOD 03/03/2025 8:06 AM EDT [facility] Urobilinogen, Urine 0.2 0.2 to 1.0 mg/dL LAB URINALYSIS - AUTOMATED METHOD 03/03/2025 8:06 AM EDT [facility] Leukocytes, Urine Negative Negative LAB URINALYSIS - AUTOMATED METHOD 03/03/2025 8:06 AM EDT [facility] Nitrite, Urine Negative Negative LAB URINALYSIS - AUTOMATED METHOD 03/03/2025 8:06 AM EDT [facility] Urine Urine specimen obtained by clean catch procedure / Unknown Non-blood Collection / Unknown 03/03/2025 7:59 AM EDT 03/03/2025 8:03 AM EDT us Jose Salinas MD LAB URINE ORDERABLES Final R esult [facility] [address] [place] [address] * MR Lumbar Spine wo IV Contrast [...] the inferior endplate and extending into the [id number] disc. *No evidence of fracture or traumatic [...] the inferior endplate and extending into the [id number] disc. *No evidence of fracture or traumatic [...] the inferior endplate and extending into the [id number] disc. *No evidence of fracture or traumatic [...] Bradley Clemente MD on 03/02/2025 8:31 PM Narrative 03/02/2025 [...] Hold for add-ons 03/02/2025 9:02 PM EDT [facility] Comment:Auto resulted. Blood Venous blood specimen / Unknown 03/02/2025 6:44 PM EDT 03/02/2025 6:53 PM EDT us Jose Salinas MD LAB BLOOD ORDERABLES Final R esult [facility] [address] [place] [address] * ED HIV 1/2 Antibody/Antigen Screen w/Reflex to HIV 1/2 Differentiation (03/02/2025 6:44 PM EDT) Pathologist [facility] HIV 1 & 2 Antibody/Antigen Screen Non Reactive Non Reactive 03/02/2025 7:48 PM EDT [facility] Comment:Screening for HIV 1 & 2 antibodies, and P24 antigen is NONREACTIVE. No confirmatory testing is required. Blood Venous blood specimen / Unknown Venipuncture / Unknown 03/02/2025 6:44 PM EDT 03/02/2025 7:02 PM EDT us Jose Salinas MD LAB BLOOD ORDERABLES Final R esult [facility] [address] [place] [address] * Hepatitis C Antibody - ED (03/02/2025 6:44 PM EDT) [facility] Hepatitis C Antibody Negative Negative 03/02/2025 7:48 PM EDT [facility] Blood Venous blood specimen / Unknown Venipuncture / Unknown 03/02/2025 6:44 PM EDT 03/02/2025 7:02 PM EDT us Jose Salinas MD LAB BLOOD ORDERABLES Final R esult [facility] [address] [place] [address] * Magnesium (03/02/2025 6:44 PM EDT) [facility] Magnesium, Plasma 1.9 1.9 - 2.4 mg/dL 03/02/2025 7:09 PM EDT [facility] Blood Venous blood specimen / Unknown Venipuncture / Unknown 03/02/2025 6:44 PM EDT 03/02/2025 6:49 PM EDT us Jose Salinas MD LAB BLOOD ORDERABLES Final R esult [facility] [address] [place] [address] * (ABNORMAL) CMP (03/02/2025 6:44 PM EDT) Pathologist [facility] Glucose, Plasma 107(H) 74 - 99 mg/dL 03/02/2025 7:09 PM EDT [facility] BUN, Plasma 24(H) 8 - 23 mg/dL 03/02/2025 7:09 PM EDT [facility] Creatinine, Plasma 1.02 0.60 - 1.10 mg/dL 03/02/2025 7:09 PM EDT [facility] BUN/Creatinine Ratio 24 03/02/2025 7:09 PM EDT [facility] Sodium, Plasma 130(L) 136 - 145 mmol/L 03/02/2025 7:09 PM EDT [facility] Potassium, Plasma 4.8 3.6 - 4.9 mmol/L 03/02/2025 7:09 PM EDT [facility] Chloride, Plasma 96(L) 97 - 107 mmol/L 03/02/2025 7:09 PM EDT [facility] CO2, Plasma 24 22 - 29 mmol/L 03/02/2025 7:09 PM EDT [facility] Anion Gap 10 6 - 16 mmol/L 03/02/2025 7:09 PM EDT [facility] Total Calcium, Plasma 8.8(L) 8.9 - 10.2 mg/dL 03/02/2025 7:09 PM EDT [facility] Total Protein 5.7(L) 6.3 - 7.9 g/dL 03/02/2025 7:09 PM EDT [facility] Albumin, Plasma 3.6 3.5 - 5.2 g/dL 03/02/2025 7:09 PM EDT [facility] AST, Plasma 19 10 - 35 U/L 03/02/2025 7:09 PM EDT [facility] Comment:Hemolyzed, result ma y be falsely increased. ALT, Plasma 25 10 - 35 U/L 03/02/2025 7:09 PM EDT [facility] Alkaline Phosphatase, Plasma 92 46 - 142 U/L 03/02/2025 7:09 PM EDT [facility] Total Bilirubin, Plasma 0.4 0.2 - 1.1 mg/dL 03/02/2025 7:09 PM EDT [facility] eGFRcr 54.0 mL/min/1.7 3m*2 03/02/2025 7:09 PM EDT [facility] Comment:Reported eGFRcr in m L/min/1.73m2 is based the CKD-EPI 2020 equation that does not use a race coefficient. Blood Venous blood specimen / Unknown Venipuncture / Unknown 03/02/2025 6:44 PM EDT 03/02/2025 6:49 PM EDT Jose Salinas MD LAB BLOOD ORDERABLES Final R esult [facility] [address] [place] [address] * Type and screen (03/02/2025 6:44 PM [...] ORDERABL ES Final Result Performing Organization Address City/[facility]/ZIP Co de Phone Number BLOOD BANK [address] [place] [address], [place] * PT-INR (03/02/2025 6:44 PM EDT) [facility] Prothrombin Time 13.1 12.0 - 14.3 sec 03/02/2025 7:04 PM EDT [facility] INR 1.0 0.9 - 1.1 03/02/2025 7:04 PM EDT [facility] Blood Venous blood specimen / Unknown Venipuncture / Unknown 03/02/2025 6:44 PM EDT 03/02/2025 6:49 PM EDT [facility] - 03/02/2025 7:04 PM EDT OPTIMAL INR RANGES FOR PATIENT ON ORAL ANTICOAGULANT THERAPY Prevention of venous thromboembolism INR 2.0 to 3.0 In patients with heart disease: Atrial fibrillation INR 2.0 to 3.0 Valvular heart disease INR 2.0 to 3.0 Tissue heart valves INR 2.0 to 3.0 Mechanical prosthetic valves INR 2.5 to 3.5 Prevention of recurrent IA INR 2.5 to 3.5 us Jose Salinas MD LAB BLOOD ORDERABLES Final R esult [facility] [address] [place] [address] * (ABNORMAL) CBC w/diff (03/02/2025 6:44 PM EDT) [facility] WBC Count 7.31 3.70 - 10.30 10*3/uL LAB HEMATOLOGY METHOD 03/02/2025 6:52 PM EDT [facility] RBC Count 3.91 3.90 - 5.20 10*6/uL LAB HEMATOLOGY METHOD 03/02/2025 6:52 PM EDT [facility] HGB 12.0 11.2 - 15.7 g/dL LAB HEMATOLOGY METHOD 03/02/2025 6:52 PM EDT [facility] HCT 34.7 34.0 - 45.0 % LAB HEMATOLOGY METHOD 03/02/2025 6:52 PM EDT [facility] Platelet Count 161 155 - 369 10*3/uL LAB HEMATOLOGY METHOD 03/02/2025 6:52 PM EDT [facility] MCV 89 79 - 98 fL LAB HEMATOLOGY METHOD 03/02/2025 6:52 PM EDT [facility] MCH 30.7 26.0 - 32.0 pg LAB HEMATOLOGY METHOD 03/02/2025 6:52 PM EDT [facility] MCHC 34.6 30.7 - 35.5 g/dL LAB HEMATOLOGY METHOD 03/02/2025 6:52 PM EDT [facility] RDW 14.3 11.5 - 14.5 % LAB HEMATOLOGY METHOD 03/02/2025 6:52 PM EDT [facility] MPV 9.3 8.8 - 12.5 fL LAB HEMATOLOGY METHOD 03/02/2025 6:52 PM EDT [facility] nRBC 0.0 <=0.0 per 100 WBCs LAB HEMATOLOGY METHOD 03/02/2025 6:52 PM EDT [facility] Differential Type Automated LAB HEMATOLOGY METHOD 03/02/2025 6:52 PM EDT [facility] Neutrophils % 78 % LAB HEMATOLOGY METHOD 03/02/2025 6:52 PM EDT [facility] Lymphocytes % 10 % LAB HEMATOLOGY METHOD 03/02/2025 6:52 PM EDT [facility] Monocytes % 8 % LAB HEMATOLOGY METHOD 03/02/2025 6:52 PM EDT [facility] Eosinophils % 2 % LAB HEMATOLOGY METHOD 03/02/2025 6:52 PM EDT [facility] Basophils % 1 % LAB HEMATOLOGY METHOD 03/02/2025 6:52 PM EDT [facility] Immature Granulocytes % 1 % LAB HEMATOLOGY METHOD 03/02/2025 6:52 PM EDT [facility] Neutrophils Absolute 5.69 1.60 - 6.10 10*3/uL LAB HEMATOLOGY METHOD 03/02/2025 6:52 PM EDT [facility] Lymphocytes Absolute 0.76(L) 1.20 - 3.90 10*3/uL LAB HEMATOLOGY METHOD 03/02/2025 6:52 PM EDT [facility] Monocytes Absolute 0.60 0.30 - 0.90 10*3/uL LAB HEMATOLOGY METHOD 03/02/2025 6:52 PM EDT [facility] Eosinophils Absolute 0.15 0.00 - 0.50 10*3/uL LAB HEMATOLOGY METHOD 03/02/2025 6:52 PM EDT [facility] Basophils Absolute 0.06 0.00 - 0.10 10*3/uL LAB HEMATOLOGY METHOD 03/02/2025 6:52 PM EDT [facility] Immature Granulocytes Absolute 0.05 0.00 - 0.06 10*3/uL LAB HEMATOLOGY METHOD 03/02/2025 6:52 PM EDT [facility] Blood Venous blood specimen / Unknown Venipuncture / Unknown 03/02/2025 6:44 PM EDT 03/02/2025 6:49 PM EDT Narrative [facility] - 03/02/2025 6:52 PM EDT Therapeutic decision making should be based on absolute values, rather than percentages. us Jose Salinas MD LAB BLOOD ORDERABLES Final R esult [facility] [address] [place] [address] * EKG now - STAT (adult) (03/02/2025 6:12 PM EDT) EKG DIAGNOSIS CLASS Abnormal MUSE ECG Ventricular Rate 66 BPM MUSE ECG Atrial Rate 66 BPM MUSE ECG TX Interval 104 ms MUSE ECG QRSD Interval 76 ms MUSE ECG QT Interval 398 ms MUSE ECG QTC Interval 417 ms MUSE ECG P [place] 85 degrees MUSE ECG R [place] -31 degrees MUSE ECG T Wave [place] 9 degrees MUSE ECG Diagnosis Sinus rhythm with short TX MUSE ECG Diagnosis Left axis deviation MUSE ECG Diagnosis Poor R-wave progression Cannot rule out Anterior infarct , age undetermined MUSE ECG Diagnosis Abnormal ECG MUSE ECG Diagnosis Need clinical information and correlation MUSE ECG Diagnosis Confirmed by Mynor Baptiste ([id number]) on 03/02/2025 7:25:29 PM MUSE ECG 03/02/2025 [...] - Provider: Everardo Page)1701 (Given - Provider: Everardo Page) 0010 (Not Given - Provider: Adele [...] documented as of this encounter Care Teams Residential Child Care Counselor Relationship Specialty Start Date End Date Dg Kang MD [address] [place] [address] [address] [place] [address] PCP - General 02/03/21 documented as of this encounter
--- OUTSIDE RECORDS SUMMARY | 2025-04-06 10:03 | XMS_ITS | Encounter Summary ---
Author Organization Healthcare Address [address] [place] [address] Care Team Providers Care Athletic Scout Name Role Phone Dg Kang MD Primary Care Provider [phone] Amada Rose MANAGER SCIENTIFIC Unavailable [phone] Encounter Details Date Type Department Care Team (Latest Contact Info) Description 04/06/2025 10:03 AM EDT - 04/06/2025 11:59 PM EDT Hospital Encounter [place] [facility] [address], [address] [place] [address] Closed fracture of eleventh thoracic vertebra with [...] and Family Not on file 03/05/2025 Attends Jewish Services Not on file 03/05 Active Member [...] were you homeless or living in a custodial (including now)? No 03/05/2025 Utilities Answer Date [...] Visit [place] [facility] [address], [address] [place] [address] Amada Rose, INEZ [address] [place] [address] documented as of this encounter Procedures Procedure [...] 04/06/2025 11:13 AM Amada John Paul Valeriosoo MANAGER SCIENTIFIC IMG XR PROCEDURES Final Resu lt * [...] documented as of this encounter Care Teams Athletic Scout Relationship Specialty Start Date End Date Dg Kang MD [address] [place] [address] PCP - General 02/03/21 Amada Rose APRN [address] [place] [address] Nurse Practitioner Neurosurgery 04/06/25 documented as of this encounter
--- OUTSIDE RECORDS SUMMARY | 2025-04-06 10:40 | XMS_ITS | Encounter Summary ---
Author Organization Healthcare Address [address] [place] [address] Care Team Providers Care Vineyardist Name Role Phone Dg Kang MD Primary Care Provider [phone] Amada Rose LUBRICATION WORKER Unavailable [phone] Encounter Details Date Type Department Care Team (Late st Contact Info) Description 04/06/2025 10:40 AM EDT Office Visit [place] [facility] [address], [address] [place] [address] Amada Rose, LUBRICATION WORKER [address] [place] [address] Closed fracture of eleventh thoracic [...] and Family Not on file 03/05/2025 Attends Shinto Services Not on file 03/05 Active Member [...] time in the past 12 m [facility], were you homeless or living in a [...] Notes * Progress Notes - Amada Rose, LUBRICATION WORKER - 04/06/2025 10:40 AM EDT We had [...] 5/5 5/5 C7: Triceps 5/5 5/5 C8: External Relations Manager 5/5 5/5 T1: Intrinsics 5/5 5/5 Lower [...] with return appointment reminder. Amada Rose APRN [facility] Department of Neurosurgery This note was dictated using voice to text software and may contain errors 40 minutes was spent reviewing previous documentation and imaging, completion of today's documentation, [id number] visit, care coordination and planning [1] Past [...] Visit [place] [facility] [address] [place] [address] Amada Rose APRN [address] [place] [address] documented as of this encounter Results * [...] on 04/06/2025 11:13 AM us Amada Rose LUBRICATION WORKER IMG XR PROCEDURES Final Resu lt * [...] documented as of this encounter Care Teams Vineyardist Relationship Specialty Start Date End Date Dg Kang MD [facility] [place] [address] PCP - General 02/03/21 Amada Rose APRN [address] [facility] [address] [place] [address] Nurse Practitioner Neurosurgery 04/06/25 documented as of this encounter
[2025-05-05] VITALS (9 sets, daily range): BP systolic 129–169; BP diastolic 72–135; PULSE 69–86; RESP 16; TEMP 36.7–36.8; O2SAT 88–98; BMI 28.5
--- OUTSIDE RECORDS SUMMARY | 2025-05-05 12:12 | XMS_ITS ---
Author Name Auto Generated, Auto Generated Organization [facility] Address [address] [place] [address] Phone [phone] Care Team Providers Care Map Maker Name Role Phone Anjel Bailey Unavailable [phone] Functional Status No Results Mental Status No Results Allergies and Intolerances Name Onset Date Reaction Severity Sulfa (Sulfonamide Antibiotics) (Allergy) Sat 15:45:00 EDT 2024 Encounters Program Name Primary Diagnosis Admission Date/Time Dis charge Date/Time null SatMar 09 20:00:00 EDT 2024 Medications Medication Directions Start Date End Date gabapentin 300 mg capsule 2 Capsule Oral Hour Of Sleep Indication: neuropathic pain SatMar 10 00:00:00 EDT 2024 Problems No Known Problems 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 Observation Description Date Smoking Status Unknown if ever smoked SatFeb 21 8 00:00:00 EDT 2024 Sex Female SatMar 22 00:00 :00 EDT 1939 Reason for Referral
--- OUTSIDE RECORDS SUMMARY | 2025-05-05 12:14 | XMS_ITS | Patient Health Record ---
Author Organization [facility] [place] Address [address] [facility] [place] [address] Care Team Providers Care Last Ironer Name Role Phone MARLEE MEDINA Primary Care Provider [phone] Jorge Luis Cote, Dg Unavailable Unavailable Reason For Referral No Information Plan Of Treatment No Information Insurance Providers Payer Name Payer Address Payer Phone Subscriber Number Group Number Insured Name Patient Relationship to Insured Coverage Start Date Coverage End Date [employer] [address] [address] [place] [address] [phone] [id number] Kelley Hamm Self - patient is the insured
--- OUTSIDE RECORDS SUMMARY | 2025-05-05 12:15 | XMS_ITS | Encounter Summary ---
Author Organization Healthcare Address [address] [place] [address] Care Team Providers Care Material Preparation Worker Name Role Phone Dg Kang MD Primary Care Provider [phone] Amada Rose CHARGE COORDINATOR Unavailable [phone] Encounter Details Date Type Department Care Team [...] and Family Not on file 03/05/2025 Attends Nondenominational Services Not on file 03/05 Active Member [...] any time in the past 12 m [facility], were you homeless or living in a assisted (including now)? No 03/05/2025 Utilities Answer Date [...] 9:20 AM EDT Office Visit [place] [facility] [address], [address] [place] [address] Amada Rose, CHARGE COORDINATOR [address] [place] [address] documented as of this encounter Visit Diagnoses Not on filedocumented in this encounter Additional Health Concerns Assessment Noted Time A Body Mass Index follow-up plan has been documented for the patient 04/06/2025 12:14 PM EDT documented as of this encounter Care Teams Material Preparation Worker Relationship Specialty Start Date End Date Dg Kang MD [facility] [address] [place] [address] PCP - General 02/03/21 Amada Rose APRN [address] [place] [address] Nurse Practitioner Neurosurgery 04/06/25 documented as of this encounter
--- OUTSIDE RECORDS SUMMARY | 2025-05-05 12:15 | XMS_ITS | Encounter Summary ---
Author Organization Healthcare Address [address] [place] [address] Care Team Providers Care Medical Claims Processor Name Role Phone Dg Kang MD Primary Care Provider [phone] Encounter Details Date Type Department Care Team (Late st Contact Info) Description 03/02/2025 Orders Only External Location [address] [place] [address] Provider, External 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 Tobacco Use Types [...] and Family Not on file 03/05/2025 Attends [employer] Not on file 03/05 Active Member [...] were you homeless or living in a [place] [facility] (including now)? No 03/05/2025 Utilities Answer Date Recorded In the past 12 months has th e [employer], gas, oil, or water company threatened to [...] Description 05/18/2025 9:20 AM EDT Office Visit [place] [facility] [address], [address] [place] [address] Amada Rose, GAS WELDING MACHINE OPERATOR [address] [place] [address] documented as of this encounter [...] documented as of this encounter Care Teams Medical Claims Processor Relationship Specialty Start Date End Date Dg Kang MD [address] [place] [address] PCP - General 02/03/21 documented as of this encounter
--- OUTSIDE RECORDS SUMMARY | 2025-05-05 12:15 | XMS_ITS | Encounter Summary ---
Author Organization Healthcare Address [address] [place] [address] Care Team Providers Care Project Estimator Name Role Phone Dg Kang MD Primary Care Provider [phone] Encounter Details Date Type Department Care Team (Late st Contact Info) Description 03/02/2025 Orders Only External Location [address] [place] [address] Provider, External 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 Tobacco Use Types [...] any time in the past 12 m [facility], were you homeless or living in a snf (including now)? No 03/05/2025 Utilities Answer Date Recorded In the past 12 months has th e [employer], gas, oil, or water company threatened to [...] Description 05/18/2025 9:20 AM EDT Office Visit [place] [facility] [address] [place] [address] Amada Rose, POKER SUPERVISOR [address] [place] [address] documented as of this encounter [...] documented as of this encounter Care Teams Project Estimator Relationship Specialty Start Date End Date Dg Kang MD [address] [place] [address] PCP - General 02/03/21 documented as of this encounter
--- OUTSIDE RECORDS SUMMARY | 2025-05-05 12:15 | XMS_ITS | Clinical Summary ---
Author Organization [facility] Address [address] [place] [address] Care Team Providers Care Hvac Journeyman Name Role Phone Dg Kang MD Primary Care Provider [phone] Amada Rose MANAGER ELECTRONIC Unavailable [phone] Allergies Active Allergy Reactions Criticality Noted Date [...] and AP/Lateral XR of the thoracic spine: [facility] [place] ([facility]) Clinic, [address], 1st floor, [facility] [address] [place] [address] [phone] HTN (hypertension) 03/03/2025 Overview (03/10/2025): Assessment & [...] Type Department Care Team Description 04/08/2025 Telephone [place] [facility] [address], [address]st [place] [address] Amada Rose APRN HCN - Patient Message 04/06/2025 10:40 AM EDT Office Visit [place] [facility] [address], [address] [place] [address] Amada Rose APRN Closed fracture of eleventh thoracic vertebra with routine healing, unspecified fracture morphology, subsequent encounter (Primary Dx); Fall from standing, initial encounter 04/06/2025 10:03 AM EDT - 04/06/2025 11:59 PM EDT Hospital Encounter [facility] [address], [address] [place] [address] Closed fracture of eleventh thoracic vertebra with routine healing, unspecified fracture morphology, subsequent encounter Discharge Disposition: Home or Self Care 04/06/2025 Travel 03/03/2025 Travel 03/02/2025 4:46 PM EDT - 03/10/2025 2:58 PM EDT Hospital Encounter [facility] [address] [facility] [address] [place] [address] Heron Salinas MD Detelich, MD Amandeep Goodrich, MD Bhupendra Torres Brittany N, MD Bernard, MD Shahrzad Cosme, Bj Barber MD Closed fracture of eleventh thoracic vertebra, unspecified fracture morphology, initial encounter ([facility]) (Primary Dx) Discharge Disposition: Fdc Facility 03/02/2025 Travel 03/02/2025 Orders Only External Location [address] [place] [address] Provider, External 03/02/2025 Orders Only External Location [address] [place] [address] Provider, External from Last 3 Months Social [...] and Family Not on file 03/05/2025 Attends [employer] Not on file 03/05 Active Member [...] any time in the past 12 m [facility], were you homeless or living in a care home (including now)? No 03/05/2025 Utilities Answer Date Recorded In the past 12 months has e [employer], gas, oil, or water company threatened to [...] Visit [place] [facility] [address], [address] [place] [address] Amada Rose, MANAGER ELECTRONIC [address] [place] [address] Health Maintenance Due Date Last Done Comments [facility]-Bone Density Scan 1940 [facility]-Depression Screening 1939 [facility]-Medicare Annual Wellness (AWV) 1939 [facility]-Infant/Child/Adol SDOH Screenings 1939 [facility]-DTaP,Tdap,and Td Vaccine s (1 - Tdap) 1958 [facility]-Zoster Vaccines (1 of 2) 1958 [facility]-IBNVC-96 Vaccine (4 - season) 2024 08/23/2021, 11/16/2020, [...] MD on 04/06/2025 11:13 AM Amada Rose MANAGER ELECTRONIC IMG XR PROCEDURES Final Resu lt * [...] MD on 04/06/2025 11:13 AM Amada Rose MANAGER ELECTRONIC IMG XR PROCEDURES Final Resu lt * Urinalysis with reflex microscopic (Culture NOT Included) (03/03/2025 7:59 AM EDT) Color, Urine Yellow LAB URINALYSIS - AUTOMATED METHOD 03/03/2025 8:06 AM EDT [facility] Clarity, Urine Clear LAB URINALYSIS - AUTOMATED METHOD 03/03/2025 8:06 AM EDT [facility] Spec [place], Urine 1.016 1.005 - 1.030 LAB URINALYSIS - AUTOMATED METHOD 03/03/2025 8:06 AM EDT [facility] pH, Urine 6.5 5.0 - 8.0 LAB URINALYSIS - AUTOMATED METHOD 03/03/2025 8:06 AM EDT [facility] Protein, Urine Negative Negative mg/dL LAB URINALYSIS - AUTOMATED METHOD 03/03/2025 8:06 AM EDT [facility] Glucose, Urine Negative Negative mg/dL LAB URINALYSIS - AUTOMATED METHOD 03/03/2025 8:06 AM EDT [facility] Ketones, Urine Negative Negative mg/dL LAB URINALYSIS - AUTOMATED METHOD 03/03/2025 8:06 AM EDT [facility] Blood, Urine Negative Negative LAB URINALYSIS - AUTOMATED METHOD 03/03/2025 8:06 AM EDT [facility] Bilirubin, Urine Negative Negative LAB URINALYSIS - AUTOMATED METHOD 03/03/2025 8:06 AM EDT [facility] Urobilinogen, Urine 0.2 0.2 to 1.0 mg/dL LAB URINALYSIS - AUTOMATED METHOD 03/03/2025 8:06 AM EDT [facility] Leukocytes, Urine Negative Negative LAB URINALYSIS - AUTOMATED METHOD 03/03/2025 8:06 AM EDT [facility] Nitrite, Urine Negative Negative LAB URINALYSIS - AUTOMATED METHOD 03/03/2025 8:06 AM EDT [facility] Urine Urine specimen obtained by clean catch procedure / Unknown Non-blood Collection / Unknown 03/03/2025 7:59 AM EDT 03/03/2025 8:03 AM EDT us Heron Salinas MD LAB URINE ORDERABLES Final R esult [facility] [address] [place] [address] * MR Lumbar Spine wo IV Contrast [...] the inferior endplate and extending into the [id number] disc. *No evidence of fracture or traumatic [...] the inferior endplate and extending into the [id number]-[id number] disc. *No evidence of fracture or traumatic [...] the inferior endplate and extending into the T15-[id number] disc. *No evidence of fracture or traumatic [...] COMMUNICATION: Per this written report. Drafted by Vigril Albrecht MD on 03/02/2025 8:36 PM Final [...] HIV 1/2 Differentiation (03/02/2025 6:44 PM EDT) [facility] HIV 1 & 2 Antibody/Antigen Screen Non Reactive Non Reactive 03/02/2025 7:48 PM EDT [facility] Comment:Screening for HIV 1 & 2 antibodies, and P24 antigen is NONREACTIVE. No confirmatory testing is required. Blood Venous blood specimen / Unknown Venipuncture / Unknown 03/02/2025 6:44 PM EDT 03/02/2025 7:02 PM EDT us Heron Salinas MD LAB BLOOD ORDERABLES Final R esult [facility] [address] [place] [address] * Light Green Top (03/02/2025 6:44 PM EDT) [facility] Extra Hold for add-ons 03/02/2025 9:02 PM EDT [facility] Comment:Auto resulted. Blood Venous blood specimen / Unknown 03/02/2025 6:44 PM EDT 03/02/2025 6:53 PM EDT us Heron Salinas MD LAB BLOOD ORDERABLES Final R esult Performing Organization Address City/[facility]/ZIP Co de Phone Number [facility] [address] [place] [address] * Hepatitis C Antibody - ED (03/02/2025 6:44 PM EDT) [facility] Hepatitis C Antibody Negative Negative 03/02/2025 7:[address] [facility] Blood Venous blood specimen / Unknown Venipuncture / Unknown 03/02/2025 6:44 PM EDT 03/02/2025 7:02 PM EDT us Heron aSlinas MD LAB BLOOD ORDERABLES Final R esult [facility] [address] [place] [address] * PT-INR (03/02/2025 6:44 PM EDT) [facility] Prothrombin Time 13.1 12.0 - 14.3 sec 03/02/2025 7:04 PM EDT [facility] INR 1.0 0.9 - 1.1 03/02/2025 7:04 PM EDT [facility] Blood Venous blood specimen / Unknown Venipuncture / Unknown 03/02/2025 6:44 PM EDT 03/02/2025 6:49 PM EDT [facility] - 03/02/2025 7:04 PM EDT OPTIMAL [...] MD LAB BLOOD ORDERABLES Final R esult [facility] [address] [place] [address] * (ABNORMAL) CBC w/diff (03/02/2025 6:44 PM EDT) [facility] WBC Count 7.31 3.70 - 10.30 10*3/uL LAB HEMATOLOGY METHOD 03/02/2025 6:52 PM EDT [facility] RBC Count 3.91 3.90 - 5.20 10*6/uL LAB HEMATOLOGY METHOD 03/02/2025 6:52 PM EDT [facility] HGB 12.0 11.2 - 15.7 g/dL LAB HEMATOLOGY METHOD 03/02/2025 6:52 PM EDT [facility] HCT 34.7 34.0 - 45.0 % LAB HEMATOLOGY METHOD 03/02/2025 6:52 PM EDT [facility] Platelet Count 161 155 - 369 10*3/uL LAB HEMATOLOGY METHOD 03/02/2025 6:52 PM EDT [facility] MCV 89 79 - 98 fL LAB HEMATOLOGY METHOD 03/02/2025 6:52 PM EDT [facility] MCH 30.7 26.0 - 32.0 pg LAB HEMATOLOGY METHOD 03/02/2025 6:52 PM EDT [facility] MCHC 34.6 30.7 - 35.5 g/dL LAB HEMATOLOGY METHOD 03/02/2025 6:52 PM EDT [facility] RDW 14.3 11.5 - 14.5 % LAB HEMATOLOGY METHOD 03/02/2025 6:52 PM EDT [facility] MPV 9.3 8.8 - 12.5 fL LAB HEMATOLOGY METHOD 03/02/2025 6:52 PM EDT [facility] nRBC 0.0 <=0.0 per 100 WBCs LAB HEMATOLOGY METHOD 03/02/2025 6:52 PM EDT [facility] Differential Type Automated LAB HEMATOLOGY METHOD 03/02/2025 6:52 PM EDT [facility] Neutrophils % 78 % LAB HEMATOLOGY METHOD 03/02/2025 6:52 PM EDT [facility] Lymphocytes % 10 % LAB HEMATOLOGY METHOD 03/02/2025 6:52 PM EDT [facility] Monocytes % 8 % LAB HEMATOLOGY METHOD 03/02/2025 6:52 PM EDT [facility] Eosinophils % 2 % LAB HEMATOLOGY METHOD 03/02/2025 6:52 PM EDT [facility] Basophils % 1 % LAB HEMATOLOGY METHOD 03/02/2025 6:52 PM EDT [facility] Immature Granulocytes % 1 % LAB HEMATOLOGY METHOD 03/02/2025 6:52 PM EDT [facility] Neutrophils Absolute 5.69 1.60 - 6.10 10*3/uL LAB HEMATOLOGY METHOD 03/02/2025 6:52 PM EDT [facility] Lymphocytes Absolute 0.76(L) 1.20 - 3.90 10*3/uL LAB HEMATOLOGY METHOD 03/02/2025 6:52 PM EDT [facility] Monocytes Absolute 0.60 0.30 - 0.90 10*3/uL LAB HEMATOLOGY METHOD 03/02/2025 6:52 PM EDT [facility] Eosinophils Absolute 0.15 0.00 - 0.50 10*3/uL LAB HEMATOLOGY METHOD 03/02/2025 6:52 PM EDT [facility] Basophils Absolute 0.06 0.00 - 0.10 10*3/uL LAB HEMATOLOGY METHOD 03/02/2025 6:52 PM EDT [facility] Immature Granulocytes Absolute 0.05 0.00 - 0.06 10*3/uL LAB HEMATOLOGY METHOD 03/02/2025 6:52 PM EDT [facility] Blood Venous blood specimen / Unknown Venipuncture / Unknown 03/02/2025 6:44 PM EDT 03/02/2025 6:49 PM EDT Narrative [facility] - 03/02/2025 6:52 PM EDT Therapeutic decision making should be based on absolute values, rather than percentages. us Heron Salinas MD LAB BLOOD ORDERABLES Final R esult [facility] [address] [place] [address] * Type and screen (03/02/2025 6:44 PM [...] ORDERABL ES Final Result Performing Organization Address City/[facility]/ZIP Co de Phone Number BLOOD BANK [address] [place] [address], [place] * Magnesium (03/02/2025 6:44 PM EDT) Magnesium, Plasma 1.9 1.9 - 2.4 mg/dL 03/02/2025 7:[address] [facility] Blood Venous blood specimen / Unknown Venipuncture / Unknown 03/02/2025 6:44 PM EDT 03/02/2025 6:49 PM EDT us Heron Salinas MD LAB BLOOD ORDERABLES Final R esult [facility] [address] [place] [address] * (ABNORMAL) CMP (03/02/2025 6:44 PM EDT) Glucose, Plasma 107(H) 74 - 99 mg/dL 03/02/2025 7:09 PM EDT [facility] BUN, Plasma 24(H) 8 - 23 mg/dL 03/02/2025 7:09 PM EDT [facility] Creatinine, Plasma 1.02 0.60 - 1.10 mg/dL 03/02/2025 7:09 PM EDT [facility] BUN/Creatinine Ratio 24 03/02/2025 7:09 PM EDT [facility] Sodium, Plasma 130(L) 136 - 145 mmol/L 03/02/2025 7:09 PM EDT [facility] Potassium, Plasma 4.8 3.6 - 4.9 mmol/L 03/02/2025 7:09 PM EDT [facility] Chloride, Plasma 96(L) 97 - 107 mmol/L 03/02/2025 7:09 PM EDT [facility] CO2, Plasma 24 22 - 29 mmol/L 03/02/2025 7:09 PM EDT [facility] Anion Gap 10 6 - 16 mmol/L 03/02/2025 7:09 PM EDT [facility] Total Calcium, Plasma 8.8(L) 8.9 - 10.2 mg/dL 03/02/2025 7:09 PM EDT [facility] Total Protein 5.7(L) 6.3 - 7.9 g/dL 03/02/2025 7:09 PM EDT [facility] Albumin, Plasma 3.6 3.5 - 5.2 g/dL 03/02/2025 7:09 PM EDT [facility] AST, Plasma 19 10 - 35 U/L 03/02/2025 7:09 PM EDT [facility] Comment:Hemolyzed, result ma y be falsely increased. ALT, Plasma 25 10 - 35 U/L 03/02/2025 7:09 PM EDT [facility] Alkaline Phosphatase, Plasma 92 46 - 142 U/L 03/02/2025 7:09 PM EDT [facility] Total Bilirubin, Plasma 0.4 0.2 - 1.1 mg/dL 03/02/2025 7:09 PM EDT [facility] eGFRcr 54.0 mL/min/1.7 3m*2 03/02/2025 7:09 PM EDT [facility] Comment:Reported eGFRcr in m L/min/1.73m2 is based the CKD-EPI 2020 equation that does not use a race coefficient. Blood Venous blood specimen / Unknown Venipuncture / Unknown 03/02/2025 6:44 PM EDT 03/02/2025 6:49 PM EDT us Heron Salinas MD LAB BLOOD ORDERABLES Final R esult Performing Organization Address City/[facility]/ZIP Co de Phone Number [facility] [address] [place] [address] * EKG now - STAT (adult) (03/02/2025 6:12 PM EDT) EKG DIAGNOSIS CLASS Abnormal MUSE ECG Ventricular Rate 66 BPM MUSE ECG Atrial Rate 66 BPM MUSE ECG MS Interval 104 ms MUSE ECG QRSD Interval 76 ms MUSE ECG QT Interval 398 ms MUSE ECG QTC Interval 417 ms MUSE ECG P Ringling 85 degrees MUSE ECG R Ringling -31 degrees MUSE ECG T Wave Ringling 9 degrees MUSE ECG Diagnosis Sinus rhythm with short MS MUSE ECG Diagnosis Left axis deviation MUSE ECG Diagnosis Poor R-wave progression Cannot rule out Anterior infarct , age undetermined MUSE ECG Diagnosis Abnormal ECG MUSE ECG Diagnosis Need clinical information and correlation MUSE ECG Diagnosis Confirmed by Mynor Baptiste ([id number]) on 03/02/2025 7:25:29 PM MUSE ECG 03/02/2025 6:12 PM EDT 03/02/2025 7:25 PM EDT us Heron Salinas MD ECG ORDERABLES Final Result Performing Organization Address City/[facility]/ZIP Co de Phone Number MUSE ECG * CT OUTSIDE IMAGES (03/02/2025 1:24 PM EDT) Only the most recent of2 resultswithin the time period is included. Anatomical Region Laterality Modality Computed Tomogra phy 03/02/2025 1:24 PM EDT us External Provider IMG CT PROCEDURES Final Result from Last 3 Months Insurance [facility] MEDICARE MEDICAID-[place] Advance Directives * Full Code (Latest Code Status on File) Date Activated Date Inactivated Comments 03/02/2025 10:47 PM 03/10/2025 4:58 PM Question Answer Comments I have reviewed the capacity from the link above and, if needed, have updated to appropriate status: Yes Care Teams Hvac Journeyman Relationship Specialty Start Date End Date Dg Kang MD [address] [facility] [address] [place] [address] PCP - General 02/03/21 Amada Rose APRN [address] [place] [address] Nurse Practitioner Neurosurgery 04/06/25
--- OUTSIDE RECORDS SUMMARY | 2025-05-05 12:15 | XMS_ITS | Encounter Summary ---
Author Organization Healthcare Address [address] [place] [address] Care Team Providers Care Animal Husbandry Professor Name Role Phone Dg Kang MD Primary Care Provider [phone] Amada Rose OUTDOOR GUIDE Unavailable [phone] Reason for Visit * Reason Onset Date Comments HCN - Patient Message 04/08/2025 Encounter Details Date Type Department Care Team (Late st Contact Info) Description 04/08/2025 Telephone [place] [facility] [address], [address] [place] [address] Amada Rose, OUTDOOR GUIDE [address] [place] [address] HCN - Patient Message Social [...] and Family Not on file 03/05/2025 Attends [employer] Not on file 03/05 Active Member [...] any time in the past 12 m [facility], were you homeless or living in a [...] time of day to reach caller: Leah [phone] Note: Please do not reply to this message. Follow-up communication and further actions as a result of this message need to be communicated with the patient directly, if the patient is not active onMyChart. If the patient is active on MyChart, they will receive notification of the communication/outcome via [employer]. documented in this encounter Plan of Treatment Upcoming Encounters Date Type Department Care Team (Late st Contact Info) Description 05/18/2025 9:20 AM EDT Office Visit [place] [facility] [address] [place] [address] Amada Rose APRN [address] [address] documented as of this encounter Visit Diagnoses Not on filedocumented in this encounter Additional Health Concerns Assessment Noted Time A Body Mass Index follow-up plan has been documented for the patient 04/06/2025 12:14 PM EDT documented as of this encounter Care Teams Animal Husbandry Professor Relationship Specialty Start Date End Date Dg Kang MD [address] [facility] [address] [place] [address] PCP - General 02/03/21 Amada Rose APRN [address] [place] [address] Nurse Practitioner Neurosurgery 04/06/25 documented as of this encounter
--- NOTE | 2025-05-05 13:03 | XR_ITS ---
FINAL REPORT CLINICAL HISTORY: 8 falls within 2 wks, AMS FINDINGS: LEFT HIP 2 views of the left hip are obtained. There are moderate degenerative changes. No displaced fracture is seen. Given osteopenia and degenerative change, subcapital fracture is difficult to exclude. Visualized joint spaces are normally aligned. There is no acute soft tissue abnormality. IMPRESSION: No displaced fracture identified. Subcapital fracture difficult to exclude. Consider CT or MRI if pain persists. Reviewed, Interpreted and Dictated by Aparna Rolon MD Transcribed by Anne Kwon Authenticated and [facility]
--- NOTE | 2025-05-05 13:04 | ED_ITS ---
<Statement entered by Renée Adams MD - 05/06/25 07:28> I was consulted by the NANETTE, and we discussed the complexity of the problems being addressed. I approved the treatment and management plan for this patient's care in the emergency department, thus performing a substantive portion of the medical decision making. Renée Adams MD, SARAH, FACEP Discharge Plan Disposition Patient Disposition: Home, Self-Care Condition: Good Prescriptions Prescriptions: No Action diclofenac sodium 1 % gel 4 g topical QID PRN (Reason: Arthritis pain of knee) Qty: 100 5RF Rx Instructions: apply to single knee, ankle, foot; for foot includes sole/toes/top of foot lactulose 10 gram/15 mL solution 20 g PO BID PRN (Reason: constipation) Qty: 3785 3RF levalbuterol HCl 1.25 mg/3 mL solution for nebulization See Rx Instructions .ROUTE .COMPLEX Qty: 270 1RF Dose Instruction: INHALE THE CONTENTS OF 1 VIAL VIA NEBULIZER THREE TIMES DAILY NEEDED FOR ASTHMA Rx Instructions: INHALE THE CONTENTS OF 1 VIAL VIA NEBULIZER THREE TIMES DAILY NEEDED FOR ASTHMA pantoprazole 40 mg tablet,delayed release (DR/EC) See Rx Instructions .ROUTE .COMPLEX Qty: 90 1RF Dose Instruction: TAKE ONE TABLET BY MOUTH EVERY DAY Rx Instructions: TAKE ONE TABLET BY MOUTH EVERY DAY propranolol 60 mg tablet See Rx Instructions .ROUTE .COMPLEX Qty: 60 5RF Dose Instruction: TAKE ONE TABLET BY MOUTH TWICE DAILY Rx Instructions: TAKE ONE TABLET BY MOUTH TWICE DAILY gabapentin 300 mg capsule 600 mg PO HS Qty: 60 3RF memantine [Namenda] 10 mg tablet 10 mg PO BID Qty: 60 5RF losartan 100 mg tablet See Rx Instructions .ROUTE .COMPLEX Qty: 90 1RF Dose Instruction: TAKE ONE TABLET BY MOUTH EVERY DAY Rx Instructions: TAKE ONE TABLET BY MOUTH EVERY DAY primidone 250 mg tablet See Rx Instructions .ROUTE .COMPLEX Qty: 90 1RF Dose Instruction: TAKE ONE TABLET BY MOUTH EVERY DAY AT BEDTIME Rx Instructions: TAKE ONE TABLET BY MOUTH EVERY DAY AT BEDTIME simvastatin 20 mg tablet See Rx Instructions .ROUTE .COMPLEX Qty: 90 1RF Dose Instruction: TAKE ONE TABLET BY MOUTH EVERY DAY AT BEDTIME Rx Instructions: TAKE ONE TABLET BY MOUTH EVERY DAY AT BEDTIME Referrals Follow up/Referrals: Provider,Referral, MD [Primary Care Provider, Medical] - See instructions Activity Restrictions/Add. Instructions Additional Instructions/Restrictions: If any complaints return Follow-up with [place] Clinical Impressions Clinical Impression: Falls frequently Instructions Patient Instructions: How to Prevent Falls Print Language Print Language: Mongolian Discharge ED Provider: Renée Adams General Adult HPI General Chief complaint: Weakness Stated complaint: Falls Time Seen by Provider: 05/05/25 12:43 Mode of Arrival: Wheelchair Source of Information: Relative Description of Symptoms (Recalled from ER Triage Doc. by RN): granddaughter states patient has had over 8 falls the past two weeks has history of deminta, family reports they are unable to take care of patient any longer and want custodial placement. she has been having PT/OT with [facility]. patient does not have any complaints at this time History of Present Illness HPI narrative: 85-year-old female presents for custodial placement. Per caregiver patient has fallen 8 times in 2 weeks with no visible injury. Caregiver states she has dementia and will not listen to commands. Most recent fall was on Saturday when she was found on her knees. Caregiver states she has a fracture to her lower back that she is wearing her brace the brace has been on for 3 months and per the doctor in [place] she needs to wear it by more weeks. Caregiver states she has a bedsore to her buttocks. Caregiver states home health was seen today and they were discussing her numerous falls and her stage II to the buttocks and family was informed since they can no longer safely take care of this patient if they did not find placement that the home health was called on APS. Caregiver states primary anatomic pathology assistant of her's Dr. Kang is working on getting her placed at [place]. Related Data Previous Rx's ?Medication ?Instructions ?Recorded diclofenac sodium 1 % topical gel 4 g topical QID PRN Arthritis pain 04/29/24 of knee #100 grams levalbuterol HCl 1.25 mg/3 mL See Rx Instructions .Rou te 09/25/24 solution for nebulization .COMPLEX #270 mL pantoprazole 40 mg tablet,delayed See Rx Instructions .Route 10/30/24 release .COMPLEX #90 tabs propranolol 60 mg tablet See Rx Instructions .Route 0 10/30/24 .COMPLEX #60 tabs gabapentin 300 mg capsule 600 mg (2 x 300 mg) PO HS #6 0 caps 06/12/25 memantine 10 mg tablet (Namenda) 10 mg PO BID #60 tabs 03/04/25 losartan 100 mg tablet See Rx Instructions .Route 0 04/01/25 .COMPLEX #90 tabs primidone 250 mg tablet See Rx Instructions .Route 0 04/01/25 .COMPLEX #90 tabs simvastatin 20 mg tablet See Rx Instructions .Route 0 04/01/25 .COMPLEX #90 tabs lactulose 10 gram/15 mL oral 20 g (30 mL) PO BID PRN 0 04/29/25 solution constipation #3,785 mL Allergies Allergy/AdvReac Type Severity Reaction Status Date / Time glucosamine Allergy Unknown BOWELS Verified 04/29/25 11:01 BLEEDING Sulfa (Sulfonamide Allergy Unknown Verified 04/29/25 11:01 Antibiotics) donepezil Allergy Verified 04/29/25 11:01 Penicillins Allergy Verified 04/29/25 11:01 sulfamethoxazole AdvReac Verified 04/29/25 11:01 [facility] Disclaimer: The information contained in this section may have been updated after the patient was seen, as this information can be updated by other users. 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) Smoking Status: Never smoker alcohol intake: never substance use type: denies use current occupational status: other Travel in the last 8 weeks?: None household members: none housing: house current occupational exposures/hazards: No caffeine: No Have you lived/traveled outside US in past 30 days?: No Contact w/someone who lives/traveled outside US past 30 days?: No Exposure to someone with infectious disease in past 14 days?: No Do you have a fever (greater than 100.4 F or 38 C)?: No Have you tested positive for COVID-19?: No Exposed to someone with COVID-19 in past 14 days?: No Do you have a sore throat?: No Do you have a cough?: No Do you have any weakness?: No Do you have any diarrhea?: No Are you experiencing any unusual bleeding?: No Do you have any muscle aches/pain?: No Do you have any abdominal pain?: No Are you experiencing loss of taste or smell?: No Other Medical History Have you received the Flu Vaccine for this season: Yes Have you received the Pneumonia Vaccine: Yes ROS Obtained: Yes All systems reviewed & no additional complaints except as documented Constitutional Constitutional: Reports system reviewed and no additional complaints, except as documented and Reports as per HPI ENT Ears, Nose, Mouth, and Throat: Reports system reviewed and no additional complaints, except as documented Cardiovascular Cardiovascular: Reports system reviewed and no additional complaints, except as documented Respiratory Respiratory: Reports system reviewed and no additional complaints, except as documented Gastrointestinal Gastrointestingal: Reports system reviewed and no additional complaints, except as documented Musculoskeletal Musculoskeletal: Reports system reviewed and no additional complaints, except as documented (Brace noted) and Reports as per HPI Neurologic Neurologic: Reports system reviewed and no additional complaints, except as documented Endocrine Endocrine: Reports system reviewed and no additional complaints, except as documented Hematologic/Lymphatic Henatologic/Lymphatic: Reports system reviewed and no additional complaints, except as documented Physical Exam General General appearance: alert and in no apparent distress Eye Eye exam: Present normal appearance ENT ENT exam: Present normal exam Neck Neck exam: Present normal inspection and full ROM; Absent tenderness Chest Chest inspection: Present normal inspection Respiratory Respiratory exam: Present normal lung sounds bilaterally Cardiovascular Cardiovascular exam: Present regular rate and normal rhythm Abdominal Exam Abdominal exam: Present soft and normal bowel sounds; Absent tenderness Extremities Exam Extremities exam: Present normal inspection, full ROM and other (Bruise noted to the left hip) Back Exam Back 1 view image: 2 1. Stage II Neurological Exam Neurological exam: Present alert Expanded Neurological Exam Coma scale motor response: Obeys commands Skin Skin exam: Present warm and other (Bruise noted to left hip and stage II to coccyx) Medical Decision Making Medical Records Medical records reviewed: Yes I reviewed the patient's medical records. Screening: Per USPSTF and CDC recommendations, given the prevalence of disease in our region, it is our hospital?s policy to screen for HIV and viral Hepatitis for all patients aged 18 and over and those with ongoing risk factors. Dano Inquiry Pt receiving controlled substance: No Dano was queried for this patient: No Vital Signs: 05/05/25 12:15 05/05/25 12:19 05/05/25 12:30 Temperature 98.2 F Temperature Source Oral Pulse Rate 77 75 Pulse Rate [Right Radial] 76 Respiratory Rate 16 Blood Pressure 150/72 H 129/75 Blood Pressure [Right Arm] 150/72 H Blood Pressure Mean Blood Pressure Mean [Right Arm] 98 Blood Pressure Source [Right Arm] Automatic Cuff Blood Pressure Position [Right Arm] Supine 02 Sat by Pulse Oximetry 98 97 88 L Oxygen Delivery Method Room Air 05/05/25 13:00 05/05/25 13:31 05/05/25 14:02 Temperature Temperature Source Pulse Rate 72 69 82 Pulse Rate [Right Radial] Respiratory Rate Blood Pressure 146/77 H 153/80 H 154/80 H Blood Pressure [Right Arm] Blood Pressure Mean Blood Pressure Mean [Right Arm] Blood Pressure Source [Right Arm] Blood Pressure Position [Right Arm] 02 Sat by Pulse Oximetry 97 98 97 Oxygen Delivery Method 05/05/25 14:30 05/05/25 15:01 Temperature Temperature Source Pulse Rate 74 Pulse Rate [Right Radial] Respiratory Rate Blood Pressure 169/77 H 155/135 H Blood Pressure [Right Arm] Blood Pressure Mean 139 Blood Pressure Mean [Right Arm] Blood Pressure Source [Right Arm] Blood Pressure Position [Right Arm] 02 Sat by Pulse Oximetry 96 Oxygen Delivery Method Lab Data Lab results reviewed: Yes I reviewed the patient's lab results. Orders (Tests/Meds): ORDERS Category Date Time Status Consult to Case Management [CONS] Routine Cons 05/05/25 13:28 Active XR hip LT 2-3V w/pelvis Stat Exams 05/05/25 13:03 Completed Medical Decision Narrative: In summary patient is a 85-year-old female who presents to the emergency department for evaluation of custodial placement. Patient is hemodynamically stable upon arrival, afebrile. Unremarkable physical exam. Differential diagnosis includes custodial placement. Initial workup will be conducted with x-ray done to the left hip. Initial inventions include x-ray of the hip care management consulted for placement. Initial workup reviewed by me x-ray negative but cannot rule out subcapital fracture but based on physical exam patient has no pain with movement or rotation. Upon repeat evaluation patient sitting up in the bed eating states no complaints, caregiver at bedside. PT and OT eval completed. Case management consult placed. Grand rvias notified at this time working with insurance for placement family at bedside and okay to take patient home while Иван works on placement. Critical Care Critical Care Time Critical Care Time: No
--- NOTE | 2025-05-05 13:58 | SW/DCPLANNER ---
Addendum entered by Radha Lozada 05/07/25 07:51: Family stated that placement is secured for today 05/07 at [facility] ICF level of care. Addendum entered by Radha Lozada 05/05/25 15:53: I have left a VM for home health nurse regarding ER visit ([place] [phone]). Madina w/ [facility] is able to accept patient under [facility] pending. Madina stated that she would need documentation prior to admission and would reach out to the daughter. Patient's family is fine w/ taking her home from ED today to wait for LIGIA admission to [facility]. Patient will discharge from ED today. Addendum entered by Radha Lozada 05/05/25 14:13: I spoke w/ Dana at [facility] regarding ER to SNF placement [phone] ext [phone]. Original Note: I spoke w/ patient and family regarding plans once medically stable for discharge. PT/OT evaluated patient and recommended SNF level of care. Family has requested patient information be faxed to [facility]. Family prefers SNF level of care but are agreeable to ICF if needed understanding this is LTC. Per daughter Dr Kang office has been working on placement prior to coming to ER. I have faxed information to [facility] and notified Madina in Admissions. I did speak w/ Dana at [facility] as well regarding possible ER to SNF admission. I will continue to follow up.
--- NOTE | 2025-05-05 13:59 | HMH.PTEV ---
Physical Therapy Evaluation Rehab PT IP Evaluation Start: 05/05/25 13:28 Freq: ONCE Status: Active Protocol: Document 05/05/25 13:50 PHORCAIT (Rec: 05/05/25 13:59 PHORNE [id number]) Subjective/History History History 85-year-old female presents for shelter placement. Per caregiver patient has fallen 8 times in 2 weeks with no visible injury. Caregiver states she has dementia and will not listen to commands. Most recent fall was on Saturday when she was found on her knees. Caregiver states she has a fracture to her lower back that she is wearing her brace the brace has been on for 3 months and per the doctor in [place] she needs to wear it by more weeks. Caregiver states she has a bedsore to her buttocks. Caregiver states home health was seen today and they were discussing her numerous falls and her stage II to the buttocks and family was informed since they can no longer safely take care of this patient if they did not find placement that the home health was called on APS. Caregiver states Dr. Kang is working on getting her placed at [place]. Pt lives with willem and has 24 hr assistance, no LINDA the home, and is generally w/c bound for mobility. She presents wearing TLSO clamshell brace for recent spine fx. Subjective Subjective Pt has no c/o pain or numbness/tingling. She agrees to mobility assessment. [facility] How much help from another person do you currently need... Turning from your None back to your side while in a flat bed without using bedrails? Moving from lying on A little back to sitting on the side of a flat bed without using bedrails? Moving to and from a A little bed to a chair ( including a wheelchair)? Standing up from a A little chair using your arms? (e.g., wheelchair, bedside chair) Walking in hospital A little room? Climbing 3-5 steps A little with a railing? Mobility Score 19 Mobility Level [facility] Mobility 6 Walk 10 steps or more Mobility Calculator Rehab PT IP Eval Objective Appearance Patient Behavior Appropriate Patient Orientation Person,Place Difficulty following none instructions Speech Pattern Clear Ambulation Patient Able to Yes Ambulate Ambulation Observation IP General Gait Wide Based Gait,Shuffling Step Pattern Observation Ambulation Distance 30 (feet) Ambulation Assistive Rolling Walker Device Ambulation Ability Moderate x 2 (50% assist) Balance Ability to Arise Able, uses arms to help Sitting Balance Steady, safe Standing Balance Unsteady Dynamic Sitting Good Balance Ability Dynamic Standing Poor Balance Ability Transfers Bed Transfer Ability Minimal x 2 (25% assist) Chair Transfer Minimal x 2 (25% assist) Ability Sit to Stand Bed Minimal x 2 (25% assist) Transfer Ability Sit to Stand Chair Minimal x 2 (25% assist) Transfer Ability ROM All Extremities PT ROM Status WFL MMT All Extremities Abnormal MMT Grade grossly 3/5 Rehab PT IP prob,goals,plan Problems Date of Evaluation: 05/05/25 PT IP Problems Bed Mobility,Transfers,Gait Rehab Potential Rehab Potential Good Plan PT Intervention Plan Bed Mobility,Transfers,Gait,Balance,Therapeutic Exercise PT Plan Frequency Daily Duration LOS Discharge Goals Bed Transfer Ability Minimal x 1 (25% assist) Sit to Stand Chair Minimal x 1 (25% assist) Transfer Ability Ambulation Assistive Rolling Walker Device Ambulation Distance 40 (feet) Discharge Plan PT Discharge Plan Pt is currently most appropriate for rehab placement once medically stable for d/c. Skilled therapy is indicated in order to improve transfers, balance, strength, and ambulation in order to improve pt QOL. Eval Complexity Eval Charge Codes 15445 - High Complexity PHYSICIAN CERTIFICATION: I certify the specified therapy services for Kelley Hua are required, authorized, and reviewed every 30 days.
--- NOTE | 2025-05-05 14:05 | HMH.OTEV ---
OT Inpatient Evaluation Rehab OT IP Evaluation Start: 05/05/25 13:28 Freq: ONCE Status: Active Protocol: [facility]05/25 13:[facility] (Rec: 05/05/25 14:[address] [id number] Rehab OT IP Assessment Subjective History Pt oriented x 2 on arrival. Family present and supportive. Pt brought to ER today due to several falls recently. History and physical: 85-year-old female presents for detention placement. Per caregiver patient has fallen 8 times in 2 weeks with no visible injury. Caregiver states she has dementia and will not listen to commands. Most recent fall was on Saturday when she was found on her knees. Caregiver states she has a fracture to her lower back that she is wearing her brace the brace has been on for 3 months and per the doctor in [place] she needs to wear it by more weeks. Caregiver states she has a bedsore to her buttocks. Caregiver states home health was seen today and they were discussing her numerous falls and her stage II to the buttocks and family was informed since they can no longer safely take care of this patient if they did not find placement that the home health was called on APS. Caregiver states primary computer operator of her's Dr. Kang is working on getting her placed at [place]. Subjective Prior to being in the hospital, pt's grandson lived with her in order to assist as needed. Family is also with her daily to assist as needed. Family reports she required assistance with dressing and bathing. She is dependent upon family for completion of all IADLs. Pt is normally able to transfer with rolling walker, but usually stays in wheelchair for farther functional transfers. Objective Patient Orientation Person,Place,Birthday Right Upper Min Limitation <25% Extremity Gross ROM Left Upper Extremity Min Limitation <25% Gross ROM Shoulder ROM Muscle Weakness Limitations Elbow ROM Muscle Weakness Limitations Wrist Limitations of Muscle Weakness Range of Motion Bed Mobility bed mobility-scooting,bed mobility - supine/sit Assist Level Minimal x 1 (25% assist) Transfer Training Sit/Stand Transfer Assist Level Moderate x 1 (50% assist) Chair Transfer Rolling Walker Assistive Devices Rehab OT IP prob,goals,plan Problems Date of Evaluation: 05/05/25 OT IP Problems Bed Mobility,Transfers,Balance,Self care,Safety Rehab Potential Rehab Potential Good Equipment Needs Assistive Devices Rolling / Wheeled Walker Plan OT intervention Plan Bed Mobility,Transfers,Balance,Self care,Safety, Therapeutic Exercise OT Plan Frequency Daily Duration LOS Discharge Goals Bed Mobility Ability Assistance x1 Sit to Stand Chair Minimal x 1 (25% assist) Transfer Ability Chair Transfer Minimal x 1 (25% assist) Ability Chair Transfer Sit to/from Ambulatory Technique Chair Transfer Rolling Walker Assistive Devices Lower Body Dressing Moderate Assistance Ability Upper Body Dressing Minimal Assistance Ability Overall Commode/ Moderate Assistance Toilet Transfer Ability Commode/Toilet Sit to/from Ambulatory Transfer Technique Discharge Plan OT Discharge Plan Pt will continue to be seen for OT services while at [facility]. Therapist recommend pt receive short term rehab at SNF following discharge from hospital. Continued skilled therapy is important in order for patient to improve strength, safety, endurance, ADL independence, and functional transfers to reach PLOF. Eval Complexity Eval Charge Codes 13338 - Moderate Complexity PHYSICIAN CERTIFICATION: I certify the specified therapy services for Kelley Hua are required, authorized, and reviewed every 30 days.
== END 2025-05-05 16:03 | disposition home or self-care (01) ==
PROVIDERS: Emergency Provider Student in an Organized Health Care Education/Training Program
DX: L89.152 Pressure ulcer of sacral region, stage 2 (principal); S70.02XA Contusion of left hip, initial encounter; R29.6 Repeated falls; W19.XXXA Unspecified fall, initial encounter
CPT/HCPCS: 73502; 99285

== ENCOUNTER 2025-05-07 06:03 | Emergency (ER) | payer MEDICARE, MEDICAID, SELFPAY ==
--- OUTSIDE RECORDS SUMMARY | 2025-03-02 16:46 | XMS_ITS | Encounter Summary ---
Author Organization Healthcare Address [address] [place] [address] Care Team Providers Care Grader Patrol Name Role Phone Dg Kang MD Primary Care Provider [phone] Reason for Visit * Reason Comments Fall * Auth/Cert (Routine) Specialty Diagnoses / Procedures Referred By Contac t Referred To Contact Diagnoses Fall from standing, initial encounter T11 fracture Dank Davenport MD [address] [address] Phone: tel: fax: [facility] [address] [place] [address] Phone: tel: Referral ID Status Reason Start Date Expiration Date Visits Re quested Visits Authorized [id number] 1 1 Encounter Details Date Type Department Care Team (Latest Contact Info) Description 03/02/2025 4:46 PM EDT - 03/10/2025 2:58 PM EDT Hospital Encounter [facility] 9 T2 [facility] [address] [place] [address] Jose Salinas MD [address] [place] [address] Dank Davenport MD [address] [facility] [address] [place] [address] Fox Bernstein MD [address] [facility] [address] [address] [place] [address] Bethany Huizar MD [address] [facility] [address] [place] [address] Diogo Tejada MD [address] [facility] [address] [place] [address] Bj Markham MD [address] [facility] [address] [place] [address] Closed fracture of eleventh thoracic vertebra, unspecified fracture morphology, initial encounter (CMS/[facility]) (Primary Dx) Discharge Disposition: Group Home Facility 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 Tobacco Use Types Packs/Day Years Used Date Smoking Tobacco: Never Smokeless Tobacco: Never Tobacco Cessation:Counseling Given: Not Answered Alcohol Use Standard Drinks/Week Comments Never 0 (1 standard drink = 0.6 oz pur e alcohol) Humiliation, Afraid, Rape, and Kick questionnair e Answer Date Recorded Within the last year, have y ou been afraid of your partner or ex-partner? No 03/05/2025 Within the last year, have y ou been humiliated or emotionally abused in other ways by your partner or ex-partner? No Within the last year, have y ou been kicked, hit, slapped, or otherwise physically hurt by your partner or ex-partner? No 03/05/2025 Within the last year, have y ou been raped or forced to have any kind of sexual activity by your partner or ex-partner? No 03/05/2025 Social Connection and Isolation Panel Answer Date Recorded Frequency of Communication with Friends and Fami ly Not on file 03/05/2025 Frequency of Social Gatherings with Friends and Family Not on file 03/05/2025 Attends [employer]ist Services Not on file 03/05 Active Member of Clubs or Organizations Not on f ile 03/05/2025 Attends Club or Organization Meetings Not on gregorio e 03/05/2025 Are you , , di vorced, , never , or living with a partner? 03/05/2025 AUDIT-C Answer Date Recorded Q1: How often do you have a drink containing alcohol? Never 03/05/2025 Q2: How many drinks containi ng alcohol do you have on a typical day when you are drinking? Patient does not drink Q3: How often do you have si x or more drinks on one occasion? Never 03/05/2025 Hunger Vital Sign Answer Date Recorded Within the past 12 months, y ou worried that your food would run out before you got the money to buy more. Never true 03/05/20 25 Within the past 12 months, t he food you bought just didn't last and you didn't have money to get more. Never true 03/05/2025 PRAPARE - Transportation Answer Date Re corded In the past 12 months, has l ack of transportation kept you from medical appointments or from getting medications? No 02/21 In the past 12 months, has l ack of transportation kept you from meetings, work, or from getting things needed for daily living? No 03/05/2025 Housing Stability Vital Sign Answer Jae e Recorded In the last 12 months, was t here a time when you were not able to pay the mortgage or rent on time? No 03/05/2025 Number of Times Moved in the Last Year Not on fi le 03/05/2025 At any time in the past 12 m [facility], were you homeless or living in a fdc (including now)? No 03/05/2025 Utilities Answer Date Recorded In the past 12 months has th e electric, gas, oil, or water company threatened to shut off services in your home? No 03/05/2025 Comments Unknown Sex and Gender Information Value Date Recorded Sex Assigned at Not on file Legal Sex Female 6:08 PM EDT Gender Identity Not on file Sexual Orientation Not on file documented as of this encounter Last Filed Vital Signs Vital Sign Reading Time Taken Comments Blood Pressure 122/71 03/10/2025 8:22 AM EDT Pulse 58 03/10/2025 8:22 AM EDT Temperature 36.3 C (97.4 F) 03/10/2025 8:22 AM EDT Respiratory Rate 18 03/10/2025 8:22 AM EDT Oxygen Saturation 95% 03/10/2025 8:22 AM EDT Inhaled Oxygen Concentration - - Weight 80.1 kg (176 lb 9.4 oz) 03/05/2025 10:13 PM EDT Height 161 cm (5' 3.39 ) 03/05/2025 10:13 PM EDT Body Mass Index 30.9 03/05/2025 10:13 PM EDT documented in this encounter Functional Status * AUDIT-C Score Answer Date of Assessment Author 0 03/05/2025 10:15 PM EDT Connie Moncada * Question Answer Date of Assessment Author Q1: How often do you have a drink containing alcohol? Never 03/05/2025 10:15 PM EDT Connie Moncada Q2: How many drinks containing alcohol do you have on a typical day when you are drinking? Patient does not drink 03/05/2025 10:15 PM EDT Connie Moncada Q3: How often do you have six or more drinks on one occasion? Never 03/05/2025 10:15 PM EDT Connie Moncada * Calculated C-SSRS Risk Score (Lifetime/Recent) Answer Date of Assessment Author No Risk Indicated 03/10/2025 2:00 PM EDT Marques Helton RN * Question Answer Date of Assessment Author 1. Wish to be (Past 1 Month) No 025 2:00 PM EDT Marques Pires, JIMBO 2. Non-Specific Active Suici meche Thoughts (Past 1 Month) No 03/10/2025 2:00 PM EDT Ana Maria Pires RN 6. Suicidal Behavior (Lifetime) No 2:00 PM EDT Marques Pires RN documented as of this encounter Discharge Instructions * Discharge Instructions* Shan Ashley, INEZ - 03/10/2025 1:44 PM EDT DVT prophylaxis: None at DC Procedures: Non-operative management Mobility Restrictions: No mobility restrictions, mobilize as able to with TLSO brace in place Other Precautions: Thoracolumbar Spinal precautions (Up to 45 degrees, may side lie, no trapeze, no trunk rotation), Logroll TLSO brace to be worn when out of bed Wound Care: None Incidental Findings: -Cervical spine degeneration -Thoracic spine degeneration -Osteoarthritis -8mm left-sided renal stone Follow up: PCP: Follow up in 1-2 weeks post hospitalization for incidental findings and management of chronic conditions/medications Neurosurgery: 04/06/25 at 10am @ [facility], [address] [facility], 1st floor, [address], [place] [address] #[phone] SGT: [facility] as needed; [address] [place] [facility] First Floor, [address], [place] [address], #[phone]. Questions or Concerns and Appointments If there are questions or concerns after discharge from the hospital, please call [phone] and ask for [facility] Nurse. Working hours are Saturday - Saturday 8:00 AM to 4:00 PM. After hours, weekends and holidays please call [phone] and ask for the resident telephone lineworker for [facility]. For appointments please call [phone]. Medication requests should be made between the hours of 9:00 AM to 3:00 PM Saturday thru Saturday. Please note that based upon recent changes to [place] law related to prescribing opioid pain medications, our providers will not provide refills on controlled medications after your hospital discharge following a major surgery or trauma. [place] 218[place], [place] 201 KAR9:260. documented in this encounter Medications at Time of Discharge acetaminophen (Tylenol) 500 MG tablet Take 2 tablets by mouth every 6 hours as needed. aspirin 81 MG EC tablet Take 1 tablet by mouth daily. cetirizine (ZyrTEC) 10 MG tablet Take 1 tablet by mouth daily. cholecalciferol (Vitamin D-3) 50 MCG (2000 UT) capsule Take 1 capsule by mouth daily. cyanocobalamin 1000 MCG tablet Take 1 tablet by mouth daily. gabapentin (Neurontin) 300 MG capsule Take 2 capsules by mouth nightly. levalbuterol (Xopenex) 1.25 MG/3ML nebulizer solution Take 1 ampule by nebulization 3 times a day as needed (asthma). losartan (Cozaar) 100 MG tablet Take 1 tablet by mouth daily. MELATONIN PO Take 1 tablet by mouth at night as needed. memantine (Namenda) 10 MG tablet Take 1 tablet by mouth 2 times a day. methocarbamol (Robaxin) 500 MG tablet Take 1 tablet by mouth every 8 hours for 15 days. 03/10/2025 Multiple Vitamin (Multivitamin) tablet Take 1 tablet by mouth daily. pantoprazole (Protonix) 40 MG EC tablet Take 1 tablet by mouth daily. Do not crush, chew, or split. predniSONE (Deltasone) 20 MG tablet Take 1 tablet by mouth 3 times a day. primidone (Mysoline) 250 MG tablet Take 1 tablet by mouth nightly. propranolol (Inderal) 60 MG tablet Take 1 tablet by mouth 2 times a day. simvastatin (Zocor) 20 MG tablet Take 1 tablet by mouth nightly. ibuprofen 600 MG tablet Take 1 tablet by mouth every 6 hours as needed for mild pain for up to 15 days. 03/10/2025 documented as of this encounter Miscellaneous Notes * Connie [place]ham - 03/10/2025 2:10 PM EDT Images from the original note were not included. [id number] What Is Osteoarthritis? Arthritis is inflammation or swelling of 1 or more joints. A joint is a point in the body where 2 or more bones come together. There are about 100 different types of arthritis. Arthritis may cause problems in the tissue near the joints. This includes muscles, tendons, and ligaments. And in some types of arthritis, the entire body can be affected. Osteoarthritis (OA) is also known as ayid-hlx-whdu arthritis. It's the most common type of arthritis. With OA, the cartilage wears away. Cartilage is a slick tissue that covers the ends of the bones.It acts as a cushion. It allows them to glide smoothly against each other. When the cartilage wearsaway, bone rubs against bone. This causes pain, swelling, and stiffness. Normal knee Knee with osteoarthritis What happens in osteoarthritis? Researchers do not know what triggers or starts the breakdown of the tissues in the joint. But as osteoarthritis begins to develop, it can damage all the areas of the joint, including: ? Cartilage, the tissue that covers the ends where 2 bones meet to form a joint ? Tendons and ligaments ? The lining of the joint (synovium) ? Bone ? Meniscus (type of cartilage between bones) in the knee Risk factors Risk factors for OA include: ? Obesity ? Being older than 40 ? Past joint injury ? Having inflammatory arthritis ? Repetitive joint use ? A family history of OA Symptoms OA can affect any joint. Weight-bearing joints are often affected. This includes the hips and knees. Common symptoms are joint pain and stiffness. These may get worse with inactivity or overuse. You may have more stiffness first thing in the morning, usually for less than 30 minutes. Or you may have stiffness after sitting for a long time. You may have more pain in your hips or knees if you walk more than normal. Other common symptoms include: ? Weak muscles ? Unstable or wobbly joints ? Grinding or crackling noises with motion ? Joints with swelling or bumps ? Unable to bend and straighten joints (reduced range of motion) If you have any of these joint changes, see your healthcare provider. You can work together to create a treatment plan. This plan may help lessen your pain and stiffness. It may prevent your symptomsfrom getting worse. Last Reviewed Date: 2023 00:00:00 ?? [id number] [employer]. All rights reserved. This information is not intended as a substitute for professional medical care. Always follow your healthcare professional's instructions. * [facility] Connie Moncada - 03/10/2025 2:10 PM EDT Images from the original note were not included. [id number] Living with Osteoarthritis Osteoarthritis is a long-term (chronic) disease. It's the most common type of arthritis. But it doesn?t have to keep you from leading an active life. You can help control your symptoms. Exercising and losing excess weight will help. Using special tools can help make life easier. See your healthcareprovider for regular checkups and blood tests. Make exercise part of your life Gentle exercise can help lessen your pain. Make sure to: ? Choose exercises that improve joint motion and make your muscles stronger. Talk with your healthcare provider or a physical therapist for exercises that may help. ? Try stretching and flexibility activities, such as yoga and yumiko chi. These may decrease pain and improve joint motion. ? Try low-impact sports. These include walking, biking, or doing exercises in a warm pool. ? Most people should exercise for at least 30 minutes a day on most days of the week. This can be broken up into shorter periods during the day. ? Don?t push yourself too hard at first. Slowly build up over time. ? Warm up for 5 to 10 minutes before you exercise. ? If pain and stiffness get worse, don't exercise as hard or as long. Watch your weight If you weigh more than you should, your weight-bearing joints are under extra pressure. This makes your symptoms worse. To reduce pain and stiffness, make a plan to lose the extra pounds. These tips may help: ? Start a weight-loss program. Talk with your healthcare provider or metal products viewer. ? Ask your friends and family for support. ? Join a weight-loss group. Use special tools Even simple tasks can be hard to do when your joints hurt. Special tools called assistive devices can make things easier. They reduce strain and protect your joints. Ask your provider where to find tools, such as: ? Long-handled reachers or grabbers ? Jar openers ? Button threaders ? Large resource specialist for pencils, garden tools, and other handheld objects Use mobility aids and other tools People with arthritis and other joint problems often use mobility aids to help with walking. They may use canes or walkers. They may use splints or braces to support joints. These devices need to be adjusted to support your physical needs (for instance, your height or type of joint deformity). So talk with your healthcare provider or physical therapist before buying a product. Ask about these aids: ? A cane to reduce knee or hip pain and help prevent falls ? Splints for your wrists or other joints ? A brace to support a weak knee joint ? Orthotics for toe and foot problems Types of treatments Talk with your healthcare provider about the many types of treatments that may help reduce your pain and improve joint mobility. These may include: ? Medicines put right on the skin (topical). These include lidocaine, capsaicin, and diclofenac gel. ? Medicines taken by mouth (oral). These include acetaminophen, nonsteroidal anti-inflammatory drugs (NSAIDs), such as ibuprofen and naproxen, or opioids. ? Medicines injected directly into joints. These include corticosteroids, or hyaluronic acid in theknee joints. ? Surgery to repair a joint ? Surgery to replace a joint with an artificial joint Complementary therapies can help. Talk with your provider about these choices: ? Heat and cold treatment ? Massage ? Acupuncture ? Vitamin or herbal supplements ? Cognitive behavioral therapy ? Meditation Last Reviewed Date: 2023 00:00:00 ?? [id number] [employer]. All rights reserved. This information is not intended as a substitute for professional medical care. Always follow your healthcare professional's instructions. * [facility] - Connie Moncada - 03/10/2025 2:10 PM EDT Images from the original note were not included. [id number] Discharge Instructions: Using a Thoracolumbar Sacral Orthosis Brace (TLSO) Your health care provider has prescribed a thoracolumbar sacral orthosis brace (TLSO) for you. A TLSO is a back brace. It's used to keep your back extended after surgery to help treat scoliosis or a spine fracture. Using the TLSO correctly will help you move on your own. General guidelines ? Wear a T-shirt under the brace. This is to protect your skin and absorb sweat. ? Wear your brace as directed by your health care provider. They will tell you how often and how long to wear the brace each day. ? Ask your provider for a special brace to wear in the shower. ? Ask if you need to wear the brace at night. ? Put on the brace the way you were shown in the hospital. You will need help to do this safely. ? Check for skin irritation and reddened areas or pressure points (sores) after wearing the brace. If these appear, you may need to have your brace adjusted, or you may need a different size. Putting on your brace ? Move to one side of the bed by using your arms and legs to move your hips over. Or have a helper pull the sheet under you over to one side. Don?t twist or move your back. Keep it straight. ? Roll to your side, away from the edge of the bed and almost onto your stomach. Try to keep your back straight. Roll like a log. ? Put the back half of the brace on your back. Make sure the waist indentations on the inside of the brace are just above your hip bones and below your ribs. ? Hold the brace in place, and log-roll onto your back. ? Put on the front half of the brace. Fully tighten both straps at the bottom of the brace on both sides. Then fully tighten the straps at the top of the brace on both sides. ? Before getting up, make sure that the brace is aligned. Adjust it if needed. ? Drop your legs over the side of the bed. Push yourself up to a sitting position. Then slowly raise yourself to a standing position. Moving safely ? Keep in mind that the brace will limit your ability to move in certain directions. You will not be able to sit in some types of chairs. ? Until your balance, flexibility, and strength have improved, use a cane, crutches, walker, or handrails, or have someone to help you. ? Arrange your household to keep the items you need handy. Keep everything else out of the way. ? Keep your hands free by using a belt bag, apron, or pockets to carry things. ? Be careful when getting out of bed. Take your time. Sit on the edge of the bed. Take a few deep breaths. Don?t stand until any dizziness goes away. ? Don?t bend or twist at the waist. ? Don't raise your hands over your head. ? Don?t lift anything heavier than 5 pounds for the first 2 weeks after your injury or surgery. ? Don?t sit for longer than 30 minutes at a time. ? Don?t sit on low, deep couches. A chair with arms, a firm seat, and an upright back is best. Follow-up care Follow up with your health care provider, or as advised. Go to all appointments for X-rays. You will need repeated X-rays to check the status of your injury or surgical repair. Call 911 Call 911 right away if you have: ? Sudden or worse shortness of breath. ? Sudden chest or back pain or chest pain with coughing. ? Calf pain, soreness, or swelling. Last Reviewed Date: 2024 00:00:00 ?? [id number] [employer]. All rights reserved. This information is not intended as a substitute for professional medical care. Always follow your healthcare professional's instructions. * [facility] - Connie Moncada - 03/10/2025 2:09 PM EDT Images from the original note were not included. [id number] Neck or Spine Fractures (Broken Neck or Spine) The spine stretches from the base of the skull to the tailbone. It's made up of 33 bones (vertebrae) that help support the body. These bones also protect the spinal cord, the important branch of yournervous system that carries messages from the brain to the body. A broken (fractured) bone in the neck or spine can be very serious. In some cases, it can lead to paralysis or . Emergency care is vital. Keep neck and spine injuries still Don't move a person with a neck or spine injury. The person should lie still and wait for an emergency medical team. It can help for someone to gently hold the person's head to keep it from moving until help arrives. When to go to the emergency room (ER) If you come upon a person with a neck or spine injury, call 911 for emergency help right away. Waitfor emergency services personnel to arrive and take over. Do not attempt to move someone with a possible spine injury unless their life is in imminent danger. A person with a neck or spinal injury may have symptoms that include: ? Not being awake or aware (unconscious) ? Severe back or neck pain ? Bruising and swelling over the neck or back ? Tingling or loss of feeling in the hands or feet ? Loss of bowel or bladder function ? Loss of feeling and movement below the level of injury ? Weakness or inability to move arms or legs What to expect in the ER Here's what will happen in the ER: ? The injured person may be placed on a spine board that prevents movement of the spine. ? X-rays of the neck or spine may be taken. ? An MRI or CT scan may be done. These provide more detailed images of the structures in the neck and back. ? Medicine may be given to lessen pain. Treatment The goal of treatment is to return the neck or spine to its normal position. ? A minor neck fracture or simple spine fracture may be treated with a neck brace for 6 to 8 weeks until the bone heals. In this case, it's very important to do what your provider advises for home care and keep all follow-up appointments. ? Severe or complex fractures often need surgery to ease the pressure on the spinal cord or spinal nerves and to realign the spine with metal rods, screws, and bone grafts. In that case, a spine surgeon (orthopedic surgeon or neurosurgeon) is needed. Last Reviewed Date: 2024 00:00:00 ?? [id number] [employer]. All rights reserved. This information is not intended as a substitute for professional medical care. Always follow your healthcare professional's instructions. * [facility] - Connie Moncada - 03/10/2025 2:09 PM EDT Images from the original note were not included. [id number] Fall Prevention Falls often take place due to slipping, tripping, or losing your balance. Millions of people fall every year and injure themselves. Among older adults in the [place] falls are the most common cause of traumatic brain injuries. Every 20 minutes, an older adult dies from a fall. Here are ways to reduceyour risk of falling again: ? Think about your fall. Was there anything that caused your fall that can be fixed, removed, or replaced? ? Make your home safe by keeping walkways clear of objects you may trip over, such as animal toys and electrical cords. ? If you are sad or depressed talk to your health care provider. Symptoms of depression, such as feeling under the weather, or physically slowed down, have been linked to an increased fall risk. ? Drink fluids throughout the day. Dehydration can lead to dizziness and increase your risk of falling. It's best to talk to your primary care providers about how much water you should drink. They know your medical history, your current prescriptions and your gmte-wuv-ztiadbu medicines. As a general rule, the National [employer]ging (NCA) recommends taking one-third of your body weight and drinking that number of ounces in fluids. For example, if you weigh 150 pounds, you would drink at least50 ounces, or about 6 cups, of fluid each day. Ask your provider if it's safe for you to use this formula. ? Use nonslip pads under rugs. Don't use area rugs or small throw rugs. ? Use nonslip mats in bathtubs and showers. ? Hang grab rails by the toilet and inside and outside the shower. ? Install handrails and lights on staircases. The handrails should be on both sides of the stairs. ? Use night lights. ? Don't walk in poorly lit areas. ? Don't stand on chairs or wobbly ladders. ? Use care when reaching overhead or looking up. This position can cause a loss of balance. ? Be sure your shoes fit well, are in good condition, and have nonslip bottoms. ? Wear shoes both inside and outside of your home. Don't go barefoot or wear slippers. ? Be cautious when going up and down stairs, curbs, and when walking on uneven sidewalks. ? If your balance is poor, consider using a cane or walker. Talk with your health care provider about having a balance assessment. ? If your fall was related to alcohol use, stop or limit alcohol intake. Ask your provider for helpif you think you may overuse alcohol and can't stop. ? If your fall was related to use of sleeping medicines, talk with your provider about this. You may need to reduce your dosage at bedtime if you wake up during the night to go to the bathroom. ? To reduce the need for nighttime bathroom trips: o Don't drink fluids for several hours before going to bed. o Empty your bladder before going to bed. o Men can keep a urinal at the bedside. ? Stay as active as you can. Balance, flexibility, strength, and endurance all come from exercise. They all play a role in preventing falls. Ask your provider which types of activity are right for you. Try to do some type of exercise every day. ? Get your eyes checked once a year or more often if your vision changes. Be extra cautious while adjusting to new prescription lenses. ? If you have pets, know where they are before you stand up or walk so you don't trip over them. ? Go over all your medicines with a pharmacist or other provider. This is to see if any of them could make you more likely to fall. Have this type of medicine review at least once every year. ? If your provider advises a new medicine, ask if the side effects will affect your balance. ? Don't move quickly from one position to another. For instance, don't stand up fast from sitting. This can cause dizziness and may lead to a fall. ? Sit down when putting on pants, socks, and shoes. This will make you less likely to lose your balance and fall. ? Always let your provider know if you have fallen since your last visit. ? Contact your provider right away if you're having balance problems or falling more often. Last Reviewed Date: 2024 00:00:00 ?? [id number] [employer]. All rights reserved. This information is not intended as a substitute for professional medical care. Always follow your healthcare professional's instructions. * [facility] - Connie Moncada - 03/10/2025 2:09 PM EDT Images from the original note were not included. [id number] After a Fall You have had a fall today. That means that you slipped, tripped, or lost your balance. If your fallwas because of fainting or a seizure, you might need other tests. It is normal to feel sore and tight in your muscles and back the next day, and not just the musclesyou injured. Remember, all the parts of your body are connected, so while one area hurts now, the next day another may hurt. Also, when you injure yourself, it causes inflammation. This then causes the muscles to tighten up and hurt more. After the initial worsening symptoms, they should slowly improve over the next few days. Tell your healthcare provider if you have more severe pain. Even without a definite head injury, you can still get a concussion from your head suddenly jerkingforward, backward, or sideways when you fall. This is especially true if you have had concussions in the past. Concussions and even bleeding can still happen, especially if you had a recent injury ortake blood thinner medicine. It is not unusual to have a mild headache and feel tired and even nauseous or dizzy. Home care ? Rest today and return to your normal activities when you are feeling back to normal. ? If you were injured during the fall, follow the advice from your healthcare provider about how tocare for your injury. ? At first, don't try to stretch out the sore spots. If there is a strain, stretching may make it worse. Massage may help relax the muscles without stretching them. ? Use an ice pack or cold compress on and off at the sore spots for 10 to 20 minutes at a time, as often as you feel comfortable. This may help reduce the inflammation, swelling, and pain. ? Know that if you have any scrapes (abrasions), they often heal within 10 days. Keep the scrapes clean while they start to heal. But an infection may happen even with correct care. So watch for early signs of infection (such as warmth, redness, or swelling). Medicines ? Talk with your healthcare provider before taking new medicines, especially if you have other health problems or are taking other medicines. ? If you need anything for pain, use acetaminophen or ibuprofen, unless you were given a different pain medicine to use. Talk with your healthcare provider before using these medicines if you: o Have chronic liver or kidney disease o Ever had a stomach ulcer or gastrointestinal bleeding o Are taking blood-thinner medicines ? Be careful if you are given prescription pain medicines, narcotics, or medicine for muscle spasms. They can make you sleepy and dizzy. And they can affect your coordination, reflexes, and judgment.Don't drive or do work where you can hurt yourself when taking them. Fall prevention ? Fix, remove, or replace anything that caused your fall. ? Make your home safe by keeping walkways clear of objects you could trip over. ? Use nonslip pads under rugs. Don't use small area rugs or throw rugs. ? Don't walk in poorly lit areas. ? Don't stand on chairs or wobbly ladders. ? Be careful when reaching overhead or looking upward. This position can cause a loss of balance. ? Be sure your shoes fit correctly, have nonslip bottoms, and are in good condition. ? Be careful when going up and down curbs, and walking on uneven sidewalks. ? If your balance is poor, think about using a cane or walker. ? Stay as active as you can. Balance, flexibility, strength, and endurance all come from exercise. They all play a role in preventing falls. ? If you have pets, know where they are before you stand up or walk so you don't trip over them. ? Limit alcohol intake. Alcohol can cause balance problems and increase the risk for falls. ? Use night-lights. ? Have your eyes tested to be sure you are seeing well, even if you already wear glasses. Follow-up Follow up with your healthcare provider, or as advised. If X-rays or CT scans were done, you will be told if there is a change in the reading, especially if it affects treatment. Call 911 Call 911 if any of these happen: ? Trouble breathing ? Confusion ? Trouble waking up ? Fainting or loss of consciousness ? Fast or very slow heart rate ? Seizure ? Trouble with speech or vision, weakness of an arm or leg ? Trouble walking or talking, loss of balance, numbness or weakness on one side of your body, or facial droop When to get medical advice Call your healthcare provider right away if any of these happen: ? Repeated falls, including falls that seem to happen for no reason ? Dizziness ? Severe headache ? Blood in vomit or stools (look black or red in color) Last Reviewed Date: 2022 00:00:00 ?? [id number] [employer]. All rights reserved. This information is not intended as a substitute for professional medical care. Always follow your healthcare professional's instructions. * Discharge Summary - Shan Ashley APRN - 03/10/2025 1:44 PM EDT Hospitalization Admit Date/Time: 03/02/2025 4:46 PM Admitting Attending: Dank Davenport Discharge Date: 03/10/2025 Discharge Attending Physician: Bj Markham MD PCP name and Address: Dg Kang MD [address] [place] [address] [address] / [place] [address] Referring provider name and address: Patricia Hair, MACHINE SETUP OPERATOR [address] [place] [address] Chief Concern, Brief History of Present Illness, and Hospital Course Kelley Moncada is a 84 yo Female with a PMHx of HTN and Dementia who presents from OSH on 03/02 following a fall on Wednesday 02/28. Unable to stand or walk due to back pain. (-) blood thinners. Injuriesinclude: T11 fracture involving the T11- 12 disc space. Past 24h: Patient sitting up in chair A&O. VSS. NAD. NAEON. On RA, no SOA. Tolerating PO diet, no N/V, abd pain. Last BM 03/08. Mobilizing as able. Pain well controlled. Braced. Medically ready for subacute. Patient to DC to [facility] in [place]. Discussed care plan with family, nursing, and patient all in agreement. Physical therapy and occupational therapy evaluated the patient during hospitalization and recommend MEME At the time of discharge the patient was hemodynamically stable, tolerating PO, voiding spontaneously, normal bowel function, mobilizing appropriately, with their pain controlled with PO medication. At this time, the patient has obtained the maximum benefit from the present hospital stay, and so will be discharged to [facility]. DVT prophylaxis: None at DC Procedures: Non-operative management Mobility Restrictions: No mobility restrictions, mobilize as able to with TLSO brace in place Other Precautions: Thoracolumbar Spinal precautions (Up to 45 degrees, may side lie, no trapeze, no trunk rotation), Logroll TLSO brace to be worn when out of bed Wound Care: None Incidental Findings: -Cervical spine degeneration -Thoracic spine degeneration -Osteoarthritis -8mm left-sided renal stone Follow up: PCP: Follow up in 1-2 weeks post hospitalization for incidental findings and management of chronic conditions/medications Neurosurgery: 04/06/25 at 10am @ [facility], [address] [place] [address], 1st floor, [address], [place] [id number] #[phone] SGT: NANETTE Saturday Clinic as needed; [address] [place] [address] First Floor, [address], [place] [address], #[phone]. Questions or Concerns and Appointments If there are questions or concerns after discharge from the hospital, please call [phone] and ask for [facility] Nurse. Working hours are Saturday - Saturday 8:00 AM to 4:00 PM. After hours, weekends and holidays please call [phone] and ask for the resident telephone lineworker for [facility]. For appointments please call [phone]. Medication requests should be made between the hours of 9:00 AM to 3:00 PM Saturday thru Saturday. Please note that based upon recent changes to [place] law related to prescribing opioid pain medications, our providers will not provide refills on controlled medications after your hospital discharge following a major surgery or trauma. [place], [place] 201 KAR9:260. Surgeries and Procedures Medication List .. acetaminophen 500 MG tablet Commonly known as: Tylenol Take 2 tablets by mouth every 6 hours as needed. aspirin 81 MG EC tablet Take 1 tablet by mouth daily. cetirizine 10 MG tablet Commonly known as: ZyrTEC Take 1 tablet by mouth daily. cholecalciferol 50 MCG (2000 UT) capsule Commonly known as: Vitamin D-3 Take 1 capsule by mouth daily. cyanocobalamin 1000 MCG tablet Commonly known as: Vitamin B-12 Take 1 tablet by mouth daily. gabapentin 300 MG capsule Commonly known as: Neurontin Take 2 capsules by mouth nightly. ibuprofen 600 MG tablet Take 1 tablet by mouth every 6 hours as needed for mild pain for up to 15 days. levalbuterol 1.25 MG/3ML nebulizer solution Commonly known as: Xopenex Take 1 ampule by nebulization 3 times a day as needed (asthma). losartan 100 MG tablet Commonly known as: Cozaar Take 1 tablet by mouth daily. MELATONIN PO Take 1 tablet by mouth at night as needed. memantine 10 MG tablet Commonly known as: Namenda Take 1 tablet by mouth 2 times a day. methocarbamol 500 MG tablet Commonly known as: Robaxin Take 1 tablet by mouth every 8 hours for 15 days. Multivitamin tablet Take 1 tablet by mouth daily. pantoprazole 40 MG EC tablet Commonly known as: Protonix Take 1 tablet by mouth daily. Do not crush, chew, or split. predniSONE 20 MG tablet Commonly known as: Deltasone Take 1 tablet by mouth 3 times a day. primidone 250 MG tablet Commonly known as: Mysoline Take 1 tablet by mouth nightly. propranolol 60 MG tablet Commonly known as: Inderal Take 1 tablet by mouth 2 times a day. simvastatin 20 MG tablet Commonly known as: Zocor Take 1 tablet by mouth nightly. Where to Get Your Medications Information about where to get these medications is not yet available Ask your nurse or doctor about these medications ibuprofen 600 MG tablet methocarbamol 500 MG tablet Discharge Diagnosis Medical Problems Active and Resolved Hospital Problems Hospital * (Principal) Fall from standing, initial encounter Current Assessment & Plan 03/02/2025 Hospital Encounter Written 03/07/2025 8:39 AM by Diogo Tejada MD Admitted SGT Tertiary exam 03/03 Closed T11 fracture ([facility]) Current Assessment & Plan 03/02/2025 Hospital Encounter Written 03/07/2025 8:39 AM by Diogo Tejada MD NSGY consulted - No acute neurosurgical intervention - MRI L spine without evidence of ligamentous injury. - Neurosurgery to order TLSO - TLSO to be worn when OOB - Please have patient follow up at [facility] with Neurosurgery NANETTE in 4-6 weeks with AP/Lateral XR of thelumbar spine and AP/Lateral XR of the thoracic spine: [facility], [address], 1st floor, [facility] [address] [place] [address] #[phone] HTN (hypertension) Overview Addendum 03/10/2025 11:59 AM by Shan Ashley APRN Current Assessment & Plan 03/02/2025 Hospital Encounter Written 03/07/2025 8:42 AM by Diogo Tejada MD home medications Dementia (CMS/HCC) Current Assessment & Plan 03/02/2025 Hospital Encounter Written 03/07/2025 8:42 AM by Diogo Tejada MD Resumed home memantine Started seroquel BID Reorient when necessary Delirium precautions Hyponatremia Overview Addendum 03/10/2025 11:59 AM by Shan Ashley APRN Current Assessment & Plan 03/02/2025 Hospital Encounter Written 03/07/2025 8:43 AM by Diogo Tejada MD Encourage fluids and nutritional optimization CTM Protein calorie malnutrition (CMS/HCC) Current Assessment & Plan 03/02/2025 Hospital Encounter Written 03/07/2025 8:43 AM by Diogo Tejada MD Total protein 5.7 on admission Nutritional optimization Nutritional supplements Cervical spine degeneration Current Assessment & Plan 03/02/2025 Hospital Encounter Written 03/07/2025 8:43 AM by Diogo Tejada MD Fluid signal in the central and posterior aspects of the C4-C5 disc. Possible discontinuity of the posterior longitudinal ligament at the C4-C5 level. C3-4: Uncovertebral hypertrophy with bilateral facet arthropathy and ligamentum flavum thickening. There is near complete effacement of the dorsal and ventral thecal sac. Severe bilateral neuroforaminal narrowing. C4-5: Uncovertebral hypertrophy and facet arthropathy. Effacement of the ventral thecal sac. Mild right neuroforaminal narrowing. The left neuroforamen is widely patent. C5-6: Bilateral uncovertebral hypertrophy with minimal ligamentum flavum thickening. Effacement of the ventral thecal sac. The neuroforamina are widely patent. C6-7: Disc osteophyte complex and bilateral uncovertebral hypertrophy and ligamentum flavum thickening. Effacement of the dorsal and ventral thecal sac with slight indentation of the cord. The right neuroforamen is widely patent. Severe left neuroforaminal narrowing. Incidental finding on imaging Follow-up with PCP for surveillance Degeneration of intervertebral disc of thoracic region Current Assessment & Plan 03/02/2025 Hospital Encounter Written 03/10/2025 12:00 PM by Shan Ashley APRN Degenerative changes are present at the following levels: Multilevel disc bulges, herniations, facet arthropathy, and ligamentum flavum thickening without evidence of high-grade spinal canal or neuroforaminal narrowing. The remaining intervertebral discs demonstrate expected intrinsic T2 hyperintensity. Moderate thoracic spine discogenic disease with osteophytosis. Incidental finding on imaging Follow-up with PCP for surveillance Lumbar degenerative disc disease Current Assessment & Plan 03/02/2025 Hospital Encounter Written 03/10/2025 11:59 AM by Shan Ashley APRN Postsurgical changes related to L3-L4 laminectomies with posterior fusion of L1-S1. T12-L1: Disc bulge with bilateral facet arthropathy. L3-L4: Posterior decompression. No significant spinal canal narrowing. The right neuroforamina is patent. Severe left neuroforaminal narrowing. L4-L5: Posterior decompression. No significant spinal canal narrowing. The neural foramina are widely patent. L5-S1: Diffuse disc bulge with central disc extrusion and facet arthropathy. The spinal canal is widely patent. Severe bilateral neuroforaminal narrowing. Osteoarthritis Overview Addendum 03/10/2025 11:58 AM by Shan Ashley APRN Current Assessment & Plan 03/02/2025 Hospital Encounter Written 03/10/2025 11:58 AM by Shan Ashley APRN Severe left greater than right glenohumeral joint osteoarthritis Moderate right and mild to moderate left hip osteoarthritis Incidental finding on imaging Follow-up with PCP for surveillance Left renal stone Current Assessment & Plan 03/02/2025 Hospital Encounter Written 03/10/2025 11:59 AM by Shan Ashley APRN 8mm left-sided renal collecting system stone Incidental finding on imaging Follow-up with PCP for surveillance Urinary retention Current Assessment & Plan 03/02/2025 Hospital Encounter Written 03/10/2025 11:58 AM by Shan Ashley APRN Intermittent catheterization x 2 Resolved Delirium Current Assessment & Plan 03/02/2025 Hospital Encounter Written 03/07/2025 8:43 AM by Diogo Tejada MD Delirium precautions -Recommend delirium precautions: lights on during the day, lights and tv off at night, frequent re-orienting to place, time and situation, encouragement of visitation by familiar people, and use of aides if hearing or vision impairment. Restraints should be minimized as much as possible given association with prolongation of delirium. Delirium may persist weeks to months after the initial insult. Sleep/wake cycle Resumed home memantine Started seroquel BID RESOLVED: Hyperglycemia Overview Signed 03/03/2025 5:51 PM by Cintia Duckworth APRN, DNP Likely reactive 2/2 trauma Monitor Outpatient Follow-Up Future Appointments Date Time Provider Department Center 04/06/2025 10:40 AM Amada Rose APRN [facility] Test Results Pending At Discharge Pertinent Physical Exam At Time of Discharge Physical Exam Vitals and nursing note reviewed. Constitutional: General: She is not in acute distress. HENT: Head: Normocephalic. Right Ear: Decreased hearing noted. Left Ear: Decreased hearing noted. Nose: Nose normal. Mouth/Throat: Mouth: Mucous membranes are moist. Pharynx: Oropharynx is clear. Eyes: Extraocular Movements: Extraocular movements intact. Conjunctiva/sclera: Conjunctivae normal. Cardiovascular: Rate and Rhythm: Normal rate and regular rhythm. Pulses: Normal pulses. Heart sounds: Normal heart sounds. Pulmonary: Effort: Pulmonary effort is normal. No respiratory distress. Breath sounds: Normal breath sounds. Chest: Chest wall: No tenderness. Abdominal: General: There is no distension. Palpations: Abdomen is soft. Tenderness: There is no abdominal tenderness. There is no guarding. Musculoskeletal: General: Tenderness present. Normal range of motion. Cervical back: Normal range of motion and neck supple. No rigidity or tenderness. Comments: Spinal tenderness with palpation and compression to T/L spine. Skin: General: Skin is warm and dry. Capillary Refill: Capillary refill takes less than 2 seconds. Neurological: General: No focal deficit present. Mental Status: She is alert and oriented to person, place, and time. Mental status is at baseline. Motor: Tremor (facial) present. Psychiatric: Behavior: Behavior is cooperative. Discharge Disposition/Condition Disposition: Rehab facility (specify) [facility] Condition: Stable (s/sx potential problems absent or manageable) I spent >30 minutes of patient care and instruction time in preparation for this discharge. Cosigned by Bj Markham MD at 03/10/2025 2:07 PM EDT * Progress Notes - Diane Hair RN - 03/10/2025 1:16 PM EDT Case Management Discharge Note Kelley Moncada 84 y.o. female CSN: [id number] Admission: 03/02/2025 4:46 PM Primary Problem: Fall from standing, initial encounter Primary Human Resources Trainer: Primary Caregiver: Family (grandson) Assistance Available at Discharge: Current Outpatient/Agency/Support Group: DME Availability of Care Givers (#Hours): 24 hours Family/Human Resources Trainer(s) Willingness Assessed to care for patient at home: Yes Family/Human Resources Trainer(s) Readiness Assessed to care for patient at home: Yes Housing Circumstances-Z Codes: Housing Circumstances (select all that apply): Low Income (101-300% Federal Poverty Guidlines) - Z596 Patient Referred to Financial or Community Resources: Financial Resources: Other (Comment) (N/A) Community Resources: Other (Comment) (N/A) Discharge Facility/Level of Care Needs: Discharge Facility/Level of Care Needs: nursing facility, skilled Patient's Choice of Community Agency(s): Patient's Choice of Community Agency(s): [facility] Patient/Family Anticipated Services at Transition: Patient/Family Anticipated Services at Transition: durable medical equipment, rehabilitation services DME/Equipment Needed after Discharge: Equipment Currently Used at Home: wheelchair, manual, walker, rolling, other (see comments) (BSC and walk in shower) Equipment Needed After Discharge: none Readmission Within the Last 30 Days: Readmission Within the Last 30 Days: no previous admission in last 30 days Medicare Documentation: Medicare Second Notice?: Yes Date Second Notice Completed: 03/10/25 Time Second Notice Completed: 1310 Medicare Second Notice Recieved By: Aurora Shelby (pt gave verbal consent for family member to sign) Follow-up: No follow-up provider specified. Discharge Transportation: Transportation Anticipated: family or friend will provide Transportation Home at Discharge: Family/Friend will Provide Has discharge transport been arranged?: No Follow Up Transport: Transportation Needed to Follow up Appoinments: Family/Friend will Provide Additional Comments: Pt is medically ready to discharge to [facility] today. Pt has accepted a bed at [facility]. Family will transport via car. Pt and family are aware and agreeable to discharge POC. [facility] Report- [phone] Fax- [phone] [facility] in [facility] Diane Hair RN * Progress Notes - Shan Ashley APRN - 03/10/2025 12:00 PM EDT =03/10/25 Kelley Moncada HPI Kelley Moncada is a 84 yo Female with a PMHx of HTN and Dementia who presents from OSH on 03/02 following a fall on Wednesday 02/28. Unable to stand or walk due to back pain. (-) blood thinners. Injuriesinclude: T11 fracture involving the T11- 12 disc space. Past 24 hours: Patient sitting up in chair A&O. VSS. NAD. NAEON. On RA, no SOA. Tolerating PO diet, no N/V, abd pain. Last BM 03/08. Mobilizing as able. Pain well controlled. Braced. Medically ready for subacute. Working to get patient to [facility]. Discussed care plan with family, nursing, and patient all in agreement. Edited by: Shan Ashley APRN at 03/10/2025 1154 Relevant review of systems was obtained as able and is negative unless stated above in HPI. Vital signs: Vitals: 03/10/25 0822 BP: 122/71 Pulse: 58 Resp: 18 Temp: 36.3 ??C (97.4 ??F) SpO2: 95% Physical Exam Vitals and nursing note reviewed. Constitutional: General: She is not in acute distress. HENT: Head: Normocephalic. Right Ear: Decreased hearing noted. Left Ear: Decreased hearing noted. Nose: Nose normal. Mouth/Throat: Mouth: Mucous membranes are moist. Pharynx: Oropharynx is clear. Eyes: Extraocular Movements: Extraocular movements intact. Conjunctiva/sclera: Conjunctivae normal. Cardiovascular: Rate and Rhythm: Normal rate and regular rhythm. Pulses: Normal pulses. Heart sounds: Normal heart sounds. Pulmonary: Effort: Pulmonary effort is normal. No respiratory distress. Breath sounds: Normal breath sounds. Chest: Chest wall: No tenderness. Abdominal: General: There is no distension. Palpations: Abdomen is soft. Tenderness: There is no abdominal tenderness. There is no guarding. Musculoskeletal: General: Tenderness present. Normal range of motion. Cervical back: Normal range of motion and neck supple. No rigidity or tenderness. Comments: Spinal tenderness with palpation and compression to T/L spine. Skin: General: Skin is warm and dry. Capillary Refill: Capillary refill takes less than 2 seconds. Neurological: General: No focal deficit present. Mental Status: She is alert and oriented to person, place, and time. Mental status is at baseline. Motor: Tremor (facial) present. Psychiatric: Behavior: Behavior is cooperative. Intake/Output Summary (Last 24 hours) at 03/10/2025 1201 Last data filed at 03/10/2025 1000 Gross per 24 hour Intake 100 ml Output 3100 ml Net -3000 ml Lines/Drains/Tubes: Patient Lines/Drains/Airways Status Active Airway None Output by Drain (mL) 03/08/25 0700 - 03/08/25 1859 03/08/25 1900 - 03/09/25 0659 03/09/25 0700 - 03/09/25 1859 03/09/25 1900 - 03/10/25 0659 03/10/25 0700 - 03/10/25 1201 Requested LDAs do not have output data documented. Labs in last 18 hours: CBC WBC ?? Hb ?? Plt ?? Hct ?? ANC ?? INR ??, PTT ??, Anti-Xa ?? MCV ?? BMP Na ?? Cl ?? BUN ?? Glu ?? K ?? Co2 ?? Cr ?? Ca ?? iCa ?? Mg ??, Phos ?? Lactate ?? LFT AST ?? AlkPhos ?? T Prot ?? ALK ?? Bili ?? Alb ?? D.Bili ?? Lab Trends: H/H INR Cr Medications reviewed. Vital signs reviewed. Labs reviewed. Radiography reviewed. Assessment and Plan: Medical Problems and Relevant Plans Hospital Problems POA * (Principal) Fall from standing, initial encounter Yes Overview Deleted 03/10/2025 12:00 PM by Shan Ashley APRN Closed T11 fracture (CMS/HCC) Yes Overview Deleted 03/10/2025 12:00 PM by Shan Ashley APRN HTN (hypertension) Yes Overview Addendum 03/10/2025 11:59 AM by Shan Ashley APRN Dementia (CMS/HCC) Yes Overview Deleted 03/10/2025 12:00 PM by Shan Ashley APRN Hyponatremia Yes Overview Addendum 03/10/2025 11:59 AM by Shan Ashley APRN Protein calorie malnutrition (CMS/HCC) Yes Overview Deleted 03/10/2025 11:58 AM by Shan Ashley APRN Cervical spine degeneration Yes Overview Deleted 03/10/2025 12:00 PM by Shan Ashley APRN Degeneration of intervertebral disc of thoracic region Yes Overview Deleted 03/10/2025 12:00 PM by Shan Ashley APRN Lumbar degenerative disc disease Yes Overview Deleted 03/10/2025 11:58 AM by Shan Ashley APRN Osteoarthritis Yes Overview Addendum 03/10/2025 11:58 AM by Shan Ashley APRN Left renal stone Yes Overview Deleted 03/10/2025 11:59 AM by Shan Ashley APRN Urinary retention Yes Overview Deleted 03/10/2025 11:58 AM by Shan Ashley APRN Delirium Yes Overview Deleted 03/10/2025 12:00 PM by Shan Ashley APRN Plan: - Brace when OOB - PT/OT - Bowel regimen - MMPC - Delirium precautions; sleep/wake cycle Discharge Dispo: [facility] Edited by: Shan Ashley APRN at 03/10/2025 1159 Shan Ashley APRN * Assessment & Plan Note - Shan Ashley APRN - 03/10/2025 12:00 PM EDT Associated Problem(s): Degeneration of intervertebral disc of thoracic region Degenerative changes are present at the following levels: Multilevel disc bulges, herniations, facet arthropathy, and ligamentum flavum thickening without evidence of high-grade spinal canal or neuroforaminal narrowing. The remaining intervertebral discs demonstrate expected intrinsic T2 hyperintensity. Moderate thoracic spine discogenic disease with osteophytosis. Incidental finding on imaging Follow-up with PCP for surveillance * Assessment & Plan Note - Shan Ashley APRN - 03/10/2025 11:59 AM EDT Associated Problem(s): Left renal stone 8mm left-sided renal collecting system stone Incidental finding on imaging Follow-up with PCP for surveillance * Assessment & Plan Note - Shan Ashley APRN - 03/10/2025 11:59 AM EDT Associated Problem(s): Lumbar degenerative disc disease Postsurgical changes related to L3-L4 laminectomies with posterior fusion of L1-S1. T12-L1: Disc bulge with bilateral facet arthropathy. L3-L4: Posterior decompression. No significant spinal canal narrowing. The right neuroforamina is patent. Severe left neuroforaminal narrowing. L4-L5: Posterior decompression. No significant spinal canal narrowing. The neural foramina are widely patent. L5-S1: Diffuse disc bulge with central disc extrusion and facet arthropathy. The spinal canal is widely patent. Severe bilateral neuroforaminal narrowing. * Assessment & Plan Note - Shan Ashley APRN - 03/10/2025 11:58 AM EDT Associated Problem(s): Urinary retention Intermittent catheterization x 2 Resolved * Assessment & Plan Note - Shan Ashley APRN - 03/10/2025 11:58 AM EDT Associated Problem(s): Osteoarthritis Severe left greater than right glenohumeral joint osteoarthritis Moderate right and mild to moderate left hip osteoarthritis Incidental finding on imaging Follow-up with PCP for surveillance * Care Plan - Luma Monge - 03/09/2025 8:08 PM EDT Problem: Adult Inpatient Plan of Care Goal: Plan of Care Review 03/09/20252007 by Luma Monge Outcome: Ongoing, Progressing 03/09/20252006 by Luma Monge Outcome: Ongoing, Progressing Goal: Patient-Specific Goal (Individualized) 03/09/20252007 by Luma Monge Outcome: Ongoing, Progressing 03/09/20252006 by Luma Monge Outcome: Ongoing, Progressing Goal: Absence of Hospital-Acquired Illness or Injury 03/09/20252007 by Luma Monge Outcome: Ongoing, Progressing 03/09/20252006 by Luma Monge Outcome: Ongoing, Progressing Goal: Optimal Comfort and Wellbeing 03/09/20252007 by Luma Monge Outcome: Ongoing, Progressing 03/09/20252006 by Luma Monge Outcome: Ongoing, Progressing Goal: Readiness for Transition of Care 03/09/20252007 by Luma Monge Outcome: Ongoing, Progressing 03/09/20252006 by Luma Monge Outcome: Ongoing, Progressing Problem: Self-Care Deficit Goal: Improved Ability to Complete Activities of Daily Living 03/09/20252007 by Luma Monge Outcome: Ongoing, Progressing 03/09/20252006 by Luma Monge Outcome: Ongoing, Progressing Problem: Mobility Impairment Goal: Optimal Mobility 03/09/20252007 by Luma Monge Outcome: Ongoing, Progressing 03/09/20252006 by Luma Monge Outcome: Ongoing, Progressing * Care Plan - Luma Monge - 03/09/2025 8:07 PM EDT Problem: Adult Inpatient Plan of Care Goal: Plan of Care Review Outcome: Ongoing, Progressing Goal: Patient-Specific Goal (Individualized) Outcome: Ongoing, Progressing Goal: Absence of Hospital-Acquired Illness or Injury Outcome: Ongoing, Progressing Goal: Optimal Comfort and Wellbeing Outcome: Ongoing, Progressing Goal: Readiness for Transition of Care Outcome: Ongoing, Progressing Problem: Self-Care Deficit Goal: Improved Ability to Complete Activities of Daily Living Outcome: Ongoing, Progressing Problem: Mobility Impairment Goal: Optimal Mobility Outcome: Ongoing, Progressing * Progress Notes - Susana Flores RN - 03/09/2025 11:36 AM EDT Case Management Adult Progress Note Kelley Moncada 84 y.o. female CSN: [id number] Admission: 03/02/2025 4:46 PM Primary Problem: Fall from standing, initial encounter Anticipated Discharge Date: TBD Medically Ready for Discharge: Ready Now Additional Comments [facility] is willing to offer a bed. Per provider and previous CM note, this is patient's preferred facility. Updated therapy notes requested for auth. Susana Flores RN * Progress Notes - Juani Rivera - 03/09/2025 10:48 AM EDT Physical Therapy Treatment Patient Name: Kelley Moncada Today's Date: 03/09/2025 PT Discharge Recommendations: Subacute rehab Equipment Recommended: Defer to facility Subjective RN and patient agreed to physical therapy services this date. She stated Oh goody to therapy. Participants in Care Family/Caregiver Present: No Boilermaker: Not Applicable Presentation Oxygen Therapy: None (Room air) Lines and Tubes: Peripheral IV 03/03/25 Distal;Posterior;Right Forearm (Active) Pre-Session: Supine, Head of bed elevated, Lines intact Post-Session: Sitting in chair, Chair alarm, Lines intact, RN notified, Call light in reach Post-Session Comments: TLSO donned. Patient positioned for comfort and pressure relief following session with needs in reach. RN informed of session. Orthoses: TLSO Precautions Medical Precautions: Spinal, Fall precautions Spinal Precautions : No bending, lifting, twisting, Log roll (TLSO OOB) Objective Pain Patient denied having any pain. Delirium Screening Lo Agitation Sedation Scale (RASS): Alert and calm Confusion Assessment Method-ICU (CAM-ICU/PCAM-ICU) Feature 3: Altered Level of Consciousness: Negative Therapeutic Activity (18 minutes) Patient participated in therapeutic activities including bed mobility, edge of bed sitting, functional transfers, and balance to improve strength, balance, endurance and independence with functional mobility. Verbal, visual, and tactile cues provided by therapist throughout session for sequencing, self pacing, fall prevention, pursed lip breathing, adherence to spinal precautions, and proper bodymechanics to improve safety and efficiency with functional mobility. Inquired if patient recalled spinal precautions with patient unable to recall. [employer] provided education on spinal precautions prior to out of bed mobility. Bed Mobility Bed Mobility Exam: Rolling/Turning Level of [place]: Moderate assist (50% patient effort) Physical/Nonphysical Assist: Verbal Cues, Nonverbal cues (demo/gestures) Bed Mobility Exam: Scooting/Bridging Level of [place]: Contact guard (Seated scooting hips into recliner chair with BUE support, CGA. Dependent assist x2 for improved positioning further back into recliner chair with use of sheet.) Physical/Nonphysical Assist: Nonverbal cues (demo/gestures), Verbal Cues Bed Mobility Exam: Supine to Sit Level of [place]: Moderate assist (50% patient's effort) Physical/Nonphysical Assist: Nonverbal cues (demo/gestures), Verbal Cues, Additional assist utilized for safety Education on log roll technique to adhere to spinal precautions with bed mobility and patient returned demonstration with cueing. Informed patient TLSO would be donned in supine with patient agreeingto supine position. Verbal and tactile cues provided to bend appropriate knee and reach across for rail with appropriate UE to improve rolling technique. Patient required cues to sequence BLEs to theedge of bed, utilize bedrail, and push torso upright to achieve bed mobility. Verbal cues on seatedscooting hips towards edge of bed for improved balance. Assistance required for seated scooting hips further back into recliner chair. Transfers Transfer Exam: Sit to stand Level of [place]: Minimum assist (75% patient's effort) Physical/Nonphysical Assist: Nonverbal cues (demo/gestures), Verbal Cues Assistive Device: Walker, rolling Transfer Exam: Stand to Sit Level of [place]: Minimum assist (75% patient's effort) Physical/Nonphysical Assist: Nonverbal cues (demo/gestures), Verbal Cues Assistive Device: Walker, rolling Verbal and tactile cues provided on proper hand placement, proper foot placement for improved base of support, and to anteriorly weight shift by rocking 3x for improved momentum to stand. Verbal cuesprovided to feel surface behind BLEs, reach back for surface, and ease into sitting for good eccentric control during stand to sit transfer onto surface for improved safety. She completed 2 sit to stand transfers- 1x from the EOB and 1x from the shower chair. Balance Static Sitting Balance Static Sitting-Balance Support: Right upper extremity support, Left upper extremity support, Feet supported Static Sitting-Level of Assistance: Standby assist Dynamic Sitting Balance Dynamic Sitting-Balance Support: Right upper extremity support, Left upper extremity support, Feet supported Dynamic Sitting-Balance: Anterior/Posterior weight shifts Level of Assistance: Contact guard Static Standing Balance Static Standing-Balance Support: Right upper extremity support, Left upper extremity support (Through RWx) Static Standing-Level of Assistance: Minimum assistance Dynamic Standing Balance Dynamic Standing-Balance Support: Right upper extremity support, Left upper extremity support (Through RWx) Dynamic Standing-Balance: Lateral weight shifts, Anterior/Posterior weight shifts Dynamic Standing Level of Assistance: Minimum assistance Patient sat upright at EOB unsupported x5 minutes for participation in upright activities and x5 minutes in the shower chair at the sink for grooming tasks. She had 1 loss of balance posterior while stepping backwards from the sink with Moderate assist provided to regain balance. No loss of balanceobserved with gait to/from the bathroom. Gait Training (15 minutes) Device: Rolling walker Assistance: Minimum assistance, Additional assist utilized for safety Distance: 15' to the bathroom followed by seated rest break on shower chair + 15' to the recliner chair followed by seated rest break. Gait Analysis: Patient demonstrated a slow pace, slight knee flexion bilaterally, decreased step length, flat feet, and decreased foot clearance. During ambulation to the bathroom patient presented with trunk posterior to midline and hips anterior to midline. During ambulation to the recliner chair patient with improved upright posture to midline posture. Gait Training Interventions: Verbal/tactile cues and visual demonstration provided of upright posture by shifting trunk slightly anterior and hips slightly posterior to attain midline as able to tolerate with patient acknolweding understanding- patient intermittently returned demonstraiton to the bathroom and returned demonstration throughout during ambulation to recliner chair. Assistance provided to navigate RWx with turns. Assessment Patient tolerated session without adverse reaction. Patient participated in 2 trials of gait duringthis PT treatment as compared to last PT treatment. Patient has the following impairments: impairedactivity tolerance, gross functional weakness, impaired posture, and impaired balance, which is limiting the patient from performing independent functional mobility. Patient is a fall risk. Will progress mobility as appropriate. Patient would continue to benefit from skilled PT services to decreasefall risk and promote independence with functional mobility, in order to maximize potential level of function. Patient would benefit from subacute rehab for further instruction to become more independent and improve functional transfers and progress with ambulation prior to return to home as patient was independent with household ambulation with AD prior to admission per initial PT evaluation. PT Recommendations Discharge Destination: Subacute rehab Discharge Equipment: Defer to facility Plan Continue with PT POC. PT Goals PT GOAL DETAILS Goal Established Date Time Frame Goal Status PT Goal 1: The patient will perform rolling bilaterally supine to/from sit transfers with SBA from flat surface 03/06/25 2 weeks PT Goal 2: The patient will perform 5/5 sit to/from stand transfers with SBA and AAD 03/06/25 2 weeks PT Goal 3: The patient will ambulate 150 feet with SBA and AAD 03/06/25 2 weeks PT Goal 4: The patient will be able to direct care while donning/doffing TLSO and independently state mobility restrictions 03/06/25 2 weeks Written by Juani Rivera on 03/09/25 at 11:38 AM. * Progress Notes - Sid Metcalf - 03/09/2025 10:45 AM EDT Occupational Therapy Treatment Patient Name: Kelley Moncada Today's Date: 03/09/2025 OT Discharge Recommendations: Subacute rehab Equipment Recommended: Defer to facility Subjective Pt agreeable to OT session this date. Participants in Care Family/Caregiver Present: No Boilermaker: Not Applicable Presentation Oxygen Therapy: None (Room air) Peripheral IV 03/03/25 Distal;Posterior;Right Forearm (Active) Pre-Session: Supine, Head of bed elevated, Lines intact Pre-Session Comments: RN agreeable to session. Post-Session: Sitting in chair, RN notified, Lines intact, Chair alarm, Call light in reach Post-Session Comments: All needs met. Orthoses: TLSO Precautions Medical Precautions: Spinal, Fall precautions Spinal Precautions : No bending, lifting, twisting, Log roll (TLSO OOB) Objective Pain Pt without c/o pain. Delirium Screening Lo Agitation Sedation Scale (RASS): Alert and calm Confusion Assessment Method-ICU (CAM-ICU/PCAM-ICU) Feature 3: Altered Level of Consciousness: Negative Cognition Cognition Overall Cognitive Status: Within Functional Limits Arousal/Alertness: Appropriate responses to stimuli Mood/Behavior: Alert Orientation Level: Oriented X4 Single Step Commands: Consistently Multi-Step Commands: Consistently Method of Communication: Verbal Bed Mobility Bed Mobility Exam: Rolling/Turning Level of [place]: Moderate assist (50% patient effort) Physical/Nonphysical Assist: Verbal Cues, Nonverbal cues (demo/gestures), Moderate cues Assistive Device: Bed rails Bed Mobility Exam: Scooting/Bridging Level of [place]: Contact guard (for positioning in chair) Physical/Nonphysical Assist: Nonverbal cues (demo/gestures), Verbal Cues, Minimal cues Bed Mobility Exam: Supine to Sit Level of [place]: Moderate assist (50% patient's effort) Physical/Nonphysical Assist: Nonverbal cues (demo/gestures), Verbal Cues, Moderate cues, Additionalassist utilized for safety Transfers Transfer Exam: Sit to stand Level of [place]: Minimum assist (75% patient's effort) Physical/Nonphysical Assist: Nonverbal cues (demo/gestures), Verbal Cues, Minimal cues Assistive Device: Walker, rolling Transfer Exam: Stand to Sit Level of [place]: Minimum assist (75% patient's effort) Physical/Nonphysical Assist: Nonverbal cues (demo/gestures), Verbal Cues, Minimal cues Assistive Device: Walker, rolling Functional Mobility Device: Rolling walker Apparatus: None Assistance: Minimum assistance, Minimal verbal cues, Minimal tactile cues Balance Postural Appearance Posture: Stooped posture, Forward head, Rounded shoulders Static Sitting Balance Static Sitting-Balance Support: Feet supported Static Sitting-Level of Assistance: Standby assist Dynamic Sitting Balance Dynamic Sitting-Balance Support: Feet supported Dynamic Sitting-Balance: Lateral weight shifts, Anterior/Posterior weight shifts Level of Assistance: Contact guard Static Standing Balance Static Standing-Balance Support: Left upper extremity support, Right upper extremity support Static Standing-Level of Assistance: Minimum assistance Dynamic Standing Balance Dynamic Standing-Balance Support: Right upper extremity support, Left upper extremity support Dynamic Standing-Balance: Anterior/Posterior weight shifts, Lateral weight shifts Dynamic Standing Level of Assistance: Minimum assistance Self-Care Interventions Self Care/Home Management (ADLs) Time Entry: 30 Therapist challenged patient to complete simulated ADL routine needed for independence in toilieting, grooming routine, or kitchen tasks with participation in ADL retraining emphasizing functional endurance/energy conservation, ADL retraining, and functional mobility. Pt required Min A for b/l rolling to jelly TLSO prior to transition to EOB with Mod A. Pt completed simulated toileting activity including unsupported sitting at for EOB for ~8 min to simulate toileting in preparation for sequential self-care. Pt then completed STS at EOB with Min A and RW to engage in functional ambulation to bathroom with Min A for seated ADL's. Pt required verbal and tactile cues for hand placement during STS and body positioning for safety due to posterior lean during standing. Grooming Grooming Level of Assistance: Setup, SBA Grooming Where Assessed: Sitting sinkside Grooming Interventions: Pt completed hair brushing and hand washing while seated sinkside with setup and SBA for task. UE Dressing UE Dressing Level of Assistance: Dependent UE Dressing Interventions: Pt performed log roll with Min A and required total assist to jelly TLSO in bed. Assessment Pt was polite, cooperative to instructions, and put forth good effort during OT treatment this date. Pt able to tolerate session well without adverse reactions and is progressing towards OT POC goals. Pt is limited by fatigue, weakness, impaired balance, impaired activity tolerance, and impaired functional mobility negatively impacting performance and independence with ADL routines and making pt a fall risk. Pt's limited mobility would also limit rapid egress of home during an emergency, accessto bathroom for bowel and bladder urgency, and other home safety scenarios. Pt will benefit from continued skilled OT to improve deficits and increase independence with ADL/IADL tasks OT Recommendations Discharge Destination: Subacute rehab Discharge Equipment: Defer to facility Plan Continue OT plan of care. Goals OT GOAL DETAILS Goal Established Date Time Frame Goal Status OT Goal 1: Pt will complete toilet transfer with LRAD and complete other components of toileting (perineal care, clothing management, etc.) with min A. 03/06/25 2 weeks OT Goal 2: Pt will engage in functional mobility aspects of ADLs with no verbal cues provided for adherence to spinal precautions. 03/06/25 2 weeks OT Goal 3: Pt will engage in household distance ambulation necessary for participation in higher level ADLs using LRAD with CGA. 03/06/25 2 weeks OT Goal 4: Pt caregiver/family will be independent with donning/doffing and adhering to pt wear schedule of TLSO. 03/06/25 Written by Sid Metcalf on 03/09/25 at 11:06 AM. * Care Plan - Everardo Page - 03/09/2025 7:45 AM EDT Problem: Adult Inpatient Plan of Care Goal: Plan of Care Review Outcome: Ongoing, Progressing Flowsheets (Taken 03/07/2025 0726) Progress: improving Plan of Care Reviewed With: patient Goal: Patient-Specific Goal (Individualized) Outcome: Ongoing, Progressing Flowsheets (Taken 03/09/2025 0700) Patient/Family-Specific Goals (Include Timeframe): Pt will remain free from fall/injury this shift. Individualized Care Needs: Saftey Anxieties, Fears or Concerns: Going home Goal: Absence of Hospital-Acquired Illness or Injury Outcome: Ongoing, Progressing Goal: Optimal Comfort and Wellbeing Outcome: Ongoing, Progressing Goal: Readiness for Transition of Care Outcome: Ongoing, Progressing Problem: Self-Care Deficit Goal: Improved Ability to Complete Activities of Daily Living Outcome: Ongoing, Progressing Problem: Mobility Impairment Goal: Optimal Mobility Outcome: Ongoing, Progressing * Progress Notes - Shan Ashley APRN - 03/09/2025 7:37 AM EDT 03/09/25 Kelley Chinchilla Javid HPI Kelley Moncada is a 84 yo Female with a PMHx of HTN and Dementia who presents from OSH on 03/02 following a fall on Wednesday 02/28. Unable to stand or walk due to back pain. (-) blood thinners. Injuriesinclude: T11 fracture involving the T11- 12 disc space. Past 24 hours: Patient sitting up in chair A&O. VSS. NAD. NAEON. On RA, no SOA. Tolerating PO diet, no N/V, abd pain. Last BM 6/16. Mobilizing as able. Discussed with nursing to help get her a shower today. Pain well controlled. Braced. Medically ready for subacute. Working to get patient to [facility] in [place]. Discussed care plan with family, nursing, and patient all in agreement. Edited by: Shan Ashley APRN at 03/09/2025 0737 Relevant review of systems was obtained as able and is negative unless stated above in HPI. Vital signs: Vitals: 03/09/25 0343 BP: 130/85 Pulse: 63 Resp: Temp: 36.4 ??C (97.6 ??F) SpO2: 95% Physical Exam Vitals and nursing note reviewed. Constitutional: General: She is not in acute distress. HENT: Head: Normocephalic. Right Ear: Decreased hearing noted. Left Ear: Decreased hearing noted. Nose: Nose normal. Mouth/Throat: Mouth: Mucous membranes are moist. Pharynx: Oropharynx is clear. Eyes: Extraocular Movements: Extraocular movements intact. Conjunctiva/sclera: Conjunctivae normal. Cardiovascular: Rate and Rhythm: Normal rate and regular rhythm. Pulses: Normal pulses. Heart sounds: Normal heart sounds. Pulmonary: Effort: Pulmonary effort is normal. No respiratory distress. Breath sounds: Normal breath sounds. Chest: Chest wall: No tenderness. Abdominal: General: There is no distension. Palpations: Abdomen is soft. Tenderness: There is no abdominal tenderness. There is no guarding. Musculoskeletal: General: Tenderness present. Normal range of motion. Cervical back: Normal range of motion and neck supple. No rigidity or tenderness. Comments: Spinal tenderness with palpation and compression to T/L spine. Skin: General: Skin is warm and dry. Capillary Refill: Capillary refill takes less than 2 seconds. Neurological: General: No focal deficit present. Mental Status: She is alert and oriented to person, place, and time. Mental status is at baseline. Motor: Tremor (facial) present. Psychiatric: Behavior: Behavior is cooperative. Intake/Output Summary (Last 24 hours) at 03/09/2025 0737 Last data filed at 03/09/2025 0600 Gross per 24 hour Intake 230 ml Output 215 ml Net 15 ml Lines/Drains/Tubes: Patient Lines/Drains/Airways Status Active Airway None Output by Drain (mL) 03/07/25 0700 - 03/07/25 1859 03/07/25 1900 - 03/08/25 0659 03/08/25 0700 - 03/08/25 1859 03/08/25 1900 - 03/09/25 0659 03/09/25 0700 - 03/09/25 0737 Patient has no LDAs of requested type attached. Labs in last 18 hours: CBC WBC ?? Hb ?? Plt ?? Hct ?? ANC ?? INR ??, PTT ??, Anti-Xa ?? MCV ?? BMP Na ?? Cl ?? BUN ?? Glu ?? K ?? Co2 ?? Cr ?? Ca ?? iCa ?? Mg ??, Phos ?? Lactate ?? LFT AST ?? AlkPhos ?? T Prot ?? ALK ?? Bili ?? Alb ?? D.Bili ?? Lab Trends: H/H Results from last 7 days Lab Units 03/02/25 1844 HEMOGLOBIN g/dL 12.0 HEMATOCRIT % 34.7 INR Results from last 7 days Lab Units 03/02/25 1844 INR 1.0 Cr Results from last 7 days Lab Units 03/02/25 1844 CREATININE mg/dL 1.02 Medications reviewed. Vital signs reviewed. Labs reviewed. Radiography reviewed. Assessment and Plan: Medical Problems and Relevant Plans Hospital Problems POA * (Principal) Fall from standing, initial encounter Yes Overview Signed 03/03/2025 5:49 PM by Cintia Duckworth APRN, DNP Admitted SGT Tertiary exam 03/03 Closed T11 fracture (CMS/HCC) Yes Overview Signed 03/03/2025 5:50 PM by Cintia Duckworth APRN, SANDIE NSGY consulted - No acute neurosurgical intervention - MRI L spine without evidence of ligamentous injury. - Neurosurgery to order TLSO - TLSO to be worn when OOB - Please have patient follow up at [facility] with Neurosurgery NANETTE in 4-6 weeks with AP/Lateral XR of thelumbar spine and AP/Lateral XR of the thoracic spine: [facility] ([facility]) [facility], [address], 1st floor, [facility]. [address] [place] [address] #[phone] HTN (hypertension) Yes Overview Addendum 03/07/2025 8:42 AM by Diogo Tejada MD home medications Dementia (CMS/HCC) Yes Overview Addendum 03/04/2025 5:57 PM by Cintia Duckworth APRN, DNP Resumed home memantine Started seroquel BID Reorient when necessary Delirium precautions Hyponatremia Yes Overview Signed 03/03/2025 5:52 PM by Cintia Duckworth APRN, DNP Encourage fluids and nutritional optimization CTM Protein calorie malnutrition (CMS/HCC) Yes Overview Signed 03/03/2025 5:52 PM by Cintia Duckworth APRN, DNP Total protein 5.7 on admission Nutritional optimization Nutritional supplements Cervical spine degeneration Yes Overview Signed 03/03/2025 5:54 PM by Cintia Duckworth APRN, DNP Fluid signal in the central and posterior aspects of the C4-C5 disc. Possible discontinuity of the posterior longitudinal ligament at the C4-C5 level. C3-4: Uncovertebral hypertrophy with bilateral facet arthropathy and ligamentum flavum thickening. There is near complete effacement of the dorsal and ventral thecal sac. Severe bilateral neuroforaminal narrowing. C4-5: Uncovertebral hypertrophy and facet arthropathy. Effacement of the ventral thecal sac. Mild right neuroforaminal narrowing. The left neuroforamen is widely patent. C5-6: Bilateral uncovertebral hypertrophy with minimal ligamentum flavum thickening. Effacement of the ventral thecal sac. The neuroforamina are widely patent. C6-7: Disc osteophyte complex and bilateral uncovertebral hypertrophy and ligamentum flavum thickening. Effacement of the dorsal and ventral thecal sac with slight indentation of the cord. The right neuroforamen is widely patent. Severe left neuroforaminal narrowing. Incidental finding on imaging Follow-up with PCP for surveillance Degeneration of intervertebral disc of thoracic region Yes Overview Signed 03/03/2025 5:55 PM by Cintia Duckworth APRN, DNP Degenerative changes are present at the following levels: Multilevel disc bulges, herniations, facet arthropathy, and ligamentum flavum thickening without evidence of high-grade spinal canal or neuroforaminal narrowing. The remaining intervertebral discs demonstrate expected intrinsic T2 hyperintensity. Moderate thoracic spine discogenic disease with osteophytosis. Incidental finding on imaging Follow-up with PCP for surveillance Lumbar degenerative disc disease Yes Overview Signed 03/03/2025 5:56 PM by Cintia Duckworth APRN, DNP Postsurgical changes related to L3-L4 laminectomies with posterior fusion of L1-S1. T12-L1: Disc bulge with bilateral facet arthropathy. L3-L4: Posterior decompression. No significant spinal canal narrowing. The right neuroforamina is patent. Severe left neuroforaminal narrowing. L4-L5: Posterior decompression. No significant spinal canal narrowing. The neural foramina are widely patent. L5-S1: Diffuse disc bulge with central disc extrusion and facet arthropathy. The spinal canal is widely patent. Severe bilateral neuroforaminal narrowing. Osteoarthritis Yes Overview Signed 03/03/2025 5:57 PM by Cintia Duckworth APRN, DNP Severe left greater than right glenohumeral joint osteoarthritis Moderate right and mild to moderate left hip osteoarthritis Incidental finding on imaging Follow-up with PCP for surveillance Left renal stone Yes Overview Signed 03/03/2025 5:58 PM by Cintia Duckworth APRN, DNP 8mm left-sided renal collecting system stone Incidental finding on imaging Follow-up with PCP for surveillance Urinary retention Yes Overview Addendum 03/04/2025 5:54 PM by Cintia Duckworth APRN, DNP Intermittent catheterization x 2 Resolved Delirium Yes Overview Signed 03/04/2025 5:56 PM by Cintia Duckworth APRN, DNP Delirium precautions -Recommend delirium precautions: lights on during the day, lights and tv off at night, frequent re-orienting to place, time and situation, encouragement of visitation by familiar people, and use of aides if hearing or vision impairment. Restraints should be minimized as much as possible given association with prolongation of delirium. Delirium may persist weeks to months after the initial insult. Sleep/wake cycle Resumed home memantine Started seroquel BID Plan: - Brace when OOB - PT/OT - Bowel regimen - Shower today - [facility] - Delirium precautions; sleep/wake cycle Discharge Dispo: [facility] Edited by: Shan Ashley APRN at 03/09/2025 0737 Shan Ashley APRN * Care Plan - Adele Mata RN - 03/09/2025 2:02 AM EDT Problem: Adult Inpatient Plan of Care Goal: Plan of Care Review Outcome: Ongoing, Progressing Goal: Patient-Specific Goal (Individualized) Outcome: Ongoing, Progressing Goal: Absence of Hospital-Acquired Illness or Injury Outcome: Ongoing, Progressing Goal: Optimal Comfort and Wellbeing Outcome: Ongoing, Progressing Goal: Readiness for Transition of Care Outcome: Ongoing, Progressing Problem: Self-Care Deficit Goal: Improved Ability to Complete Activities of Daily Living Outcome: Ongoing, Progressing Problem: Mobility Impairment Goal: Optimal Mobility Outcome: Ongoing, Progressing * Consults - Hyacinth Gomez RD - 03/08/2025 2:55 PM EDT Adult Nutrition Evaluation Note Kelley Moncada 84 y.o. female CSN: [id number] Room/Bed 230/230A Nutrition evaluation type: assessment Reason for evaluation: [facility] course: 84 yo F s/p fall. Injuries include: T11 fracture involving the T11-12 disc space. Past medical/ surgical history: Past Medical History[1] Surgical History[2] Social history: Additional comments: Vitals and Basic Assessment: BP: 84/56 Temp: (!) 36 ??C (96.8 ??F) Oxygen Therapy: None (Room air) Sue Coma Scale Score: 15 Apolinar Scale Score: 17 Most Recent BM Date: 03/08/25 Allergies: NKFA Medications: Current Scheduled Medications[3] Current Continuous Medications[4] Current PRN Medications[5] Labs: Reviewed. Anthropometrics: Ht; 1.61 m (5' 3.39 ) Wt: 80.1 kg BMI: 30.9 Wt Evaluation: obese IBW: 53 kg %IBW : 151 Adjusted Body Weight: 60 kg Weight History: Wt Readings from Last 7 Encounters: 03/05/25 80.1 kg (176 lb 9.4 oz) Estimated Needs: Current Nutrition Intake: Diet: Lactose free Supplements: Boost Breeze TID. Intake: - I/o's: Intake/Output Summary (Last 24 hours) at 03/08/2025 1456 Last data filed at 03/07/20251999 Gross per 24 hour Intake 120 ml Output -- Net 120 ml Nutrition Support: Diet Experience & Nutrition History: Diet Education: Will monitor Pertinent Home Medications: Noted Metabolic Cart Study Results: Nutrition Focused Physical Exam: Physical exam performed on (date): pending. Assessment of Malnutrition: Nutrition Problem: Increased nutrient needs PRO related to Increased metabolic needs for healing as evidenced by s/p fall with fractures. Status of Nutrition Diagnosis: New Nutrition Interventions and Recommendations: Diet per team/mat roller. Monitor for si/sx of dysphagia if noted rec NPO and eval. Boost Breeze as warranted. Record PO Intake. MVI. Nutrition Monitoring and Goals: Monitor tolerance and adequacy of po intake / enteral infusion, wt changes, bowel fxn, labs, skin integrity; and follow up per acuity Patient will consume >50% of most meals. Acuity Level: [address], LD [1] Past Medical History: Diagnosis Date Dementia (CMS/HCC) Hypertension [2] Past Surgical History: Procedure Laterality Date SPINE SURGERY prior L5-S1 hardware [3] acetaminophen, 650 mg, Oral, q6h ELIZABETH enoxaparin, 30 mg, Subcutaneous, BID gabapentin, 300 mg, Oral, BID losartan, 100 mg, Oral, Daily melatonin, 9 mg, Oral, Nightly memantine, 10 mg, Oral, BID methocarbamol, 500 mg, Oral, q8h pantoprazole, 40 mg, Oral, Daily polyethylene glycol, 17 g, Oral, Daily predniSONE, 20 mg, Oral, TID primidone, 250 mg, Oral, Nightly propranolol, 60 mg, Oral, BID senna-docusate, 1 tablet, Oral, Nightly sodium chloride, 10 mL, Intravenous, q12h [4] [5] PRN medications: bisacodyl, ipratropium-albuterol, ondansetron ODT OR ondansetron OR ondansetron, Insert peripheral IV AND Saline lock IV AND sodium chloride AND sodium chloride * Progress Notes - Shan Ashley APRN - 03/08/2025 1:45 PM EDT 03/08/25 Kelley Moncada HPI Kelley Moncada is a 84 yo Female with a PMHx of HTN and Dementia who presents from OSH on 03/02 following a fall on Wednesday 02/28. Unable to stand or walk due to back pain. (-) blood thinners. Injuriesinclude: T11 fracture involving the T11- 12 disc space. Past 24 hours: Patient sitting up in chair A&O. VSS. NAD. NAEON. On RA, no SOA. Tolerating PO diet, no N/V, abd pain. Last BM 03/08. Mobilizing as able. Pain well controlled. Braced. Medically ready for subacute. No issues. Edited by: Shan Ashley APRN at 03/08/2025 1345 Relevant review of systems was obtained as able and is negative unless stated above in HPI. Vital signs: Vitals: 03/08/25 1152 BP: 84/56 Pulse: 57 Resp: Temp: (!) 36 ??C (96.8 ??F) SpO2: 93% Physical Exam Vitals and nursing note reviewed. Constitutional: General: She is not in acute distress. HENT: Head: Normocephalic. Right Ear: Decreased hearing noted. Left Ear: Decreased hearing noted. Nose: Nose normal. Mouth/Throat: Mouth: Mucous membranes are moist. Pharynx: Oropharynx is clear. Eyes: Extraocular Movements: Extraocular movements intact. Conjunctiva/sclera: Conjunctivae normal. Cardiovascular: Rate and Rhythm: Normal rate and regular rhythm. Pulses: Normal pulses. Heart sounds: Normal heart sounds. Pulmonary: Effort: Pulmonary effort is normal. No respiratory distress. Breath sounds: Normal breath sounds. Chest: Chest wall: No tenderness. Abdominal: General: There is no distension. Palpations: Abdomen is soft. Tenderness: There is no abdominal tenderness. There is no guarding. Musculoskeletal: General: Tenderness present. Normal range of motion. Cervical back: Normal range of motion and neck supple. No rigidity or tenderness. Comments: Spinal tenderness with palpation and compression to T/L spine. Skin: General: Skin is warm and dry. Capillary Refill: Capillary refill takes less than 2 seconds. Neurological: General: No focal deficit present. Mental Status: She is alert. Mental status is at baseline. She is disoriented. Motor: Tremor (facial) present. Psychiatric: Behavior: Behavior is cooperative. Intake/Output Summary (Last 24 hours) at 03/08/2025 1345 Last data filed at 03/07/20251999 Gross per 24 hour Intake 120 ml Output -- Net 120 ml Lines/Drains/Tubes: Patient Lines/Drains/Airways Status Active Airway None Output by Drain (mL) 03/06/25 0700 - 03/06/25 1859 03/06/25 1900 - 03/07/25 0659 03/07/25 0700 - 03/07/25 1859 03/07/25 1900 - 03/08/25 0659 03/08/25 07 - 03/08/25 1345 Patient has no LDAs of requested type attached. Labs in last 18 hours: CBC WBC ?? Hb ?? Plt ?? Hct ?? ANC ?? INR ??, PTT ??, Anti-Xa ?? MCV ?? BMP Na ?? Cl ?? BUN ?? Glu ?? K ?? Co2 ?? Cr ?? Ca ?? iCa ?? Mg ??, Phos ?? Lactate ?? LFT AST ?? AlkPhos ?? T Prot ?? ALK ?? Bili ?? Alb ?? D.Bili ?? Lab Trends: H/H Results from last 7 days Lab Units 03/02/25 1844 HEMOGLOBIN g/dL 12.0 HEMATOCRIT % 34.7 INR Results from last 7 days Lab Units 03/02/25 1844 INR 1.0 Cr Results from last 7 days Lab Units 03/02/25 1844 CREATININE mg/dL 1.02 Medications reviewed. Vital signs reviewed. Labs reviewed. Radiography reviewed. Assessment and Plan: Medical Problems and Relevant Plans Hospital Problems POA * (Principal) Fall from standing, initial encounter Yes Overview Signed 03/03/2025 5:49 PM by Cintia Duckworth APRN, DNP Admitted SGT Tertiary exam 03/03 Closed T11 fracture (CMS/HCC) Yes Overview Signed 03/03/2025 5:50 PM by Cintia Duckworth APRN, SANDIE NSGY consulted - No acute neurosurgical intervention - MRI L spine without evidence of ligamentous injury. - Neurosurgery to order TLSO - TLSO to be worn when OOB - Please have patient follow up at [facility] with Neurosurgery NANETTE in 4-6 weeks with AP/Lateral XR of thelumbar spine and AP/Lateral XR of the thoracic spine: [facility] ([facility]) Clinic, [address], 1st floor, [address] [place] [address] #[phone] HTN (hypertension) Yes Overview Addendum 03/07/2025 8:42 AM by Diogo Tejada MD home medications Dementia (CMS/HCC) Yes Overview Addendum 03/04/2025 5:57 PM by Cintia Duckworth APRN, DNP Resumed home memantine Started seroquel BID Reorient when necessary Delirium precautions Hyponatremia Yes Overview Signed 03/03/2025 5:52 PM by Cintia Duckworth APRN, DNP Encourage fluids and nutritional optimization CTM Protein calorie malnutrition (CMS/HCC) Yes Overview Signed 03/03/2025 5:52 PM by Cintia Duckworth APRN, DNP Total protein 5.7 on admission Nutritional optimization Nutritional supplements Cervical spine degeneration Yes Overview Signed 03/03/2025 5:54 PM by Cintia Duckworth APRN, DNP Fluid signal in the central and posterior aspects of the C4-C5 disc. Possible discontinuity of the posterior longitudinal ligament at the C4-C5 level. C3-4: Uncovertebral hypertrophy with bilateral facet arthropathy and ligamentum flavum thickening. There is near complete effacement of the dorsal and ventral thecal sac. Severe bilateral neuroforaminal narrowing. C4-5: Uncovertebral hypertrophy and facet arthropathy. Effacement of the ventral thecal sac. Mild right neuroforaminal narrowing. The left neuroforamen is widely patent. C5-6: Bilateral uncovertebral hypertrophy with minimal ligamentum flavum thickening. Effacement of the ventral thecal sac. The neuroforamina are widely patent. C6-7: Disc osteophyte complex and bilateral uncovertebral hypertrophy and ligamentum flavum thickening. Effacement of the dorsal and ventral thecal sac with slight indentation of the cord. The right neuroforamen is widely patent. Severe left neuroforaminal narrowing. Incidental finding on imaging Follow-up with PCP for surveillance Degeneration of intervertebral disc of thoracic region Yes Overview Signed 03/03/2025 5:55 PM by Cintia Duckworth APRN, DNP Degenerative changes are present at the following levels: Multilevel disc bulges, herniations, facet arthropathy, and ligamentum flavum thickening without evidence of high-grade spinal canal or neuroforaminal narrowing. The remaining intervertebral discs demonstrate expected intrinsic T2 hyperintensity. Moderate thoracic spine discogenic disease with osteophytosis. Incidental finding on imaging Follow-up with PCP for surveillance Lumbar degenerative disc disease Yes Overview Signed 03/03/2025 5:56 PM by Cintia Duckworth APRN, DNP Postsurgical changes related to L3-L4 laminectomies with posterior fusion of L1-S1. T12-L1: Disc bulge with bilateral facet arthropathy. L3-L4: Posterior decompression. No significant spinal canal narrowing. The right neuroforamina is patent. Severe left neuroforaminal narrowing. L4-L5: Posterior decompression. No significant spinal canal narrowing. The neural foramina are widely patent. L5-S1: Diffuse disc bulge with central disc extrusion and facet arthropathy. The spinal canal is widely patent. Severe bilateral neuroforaminal narrowing. Osteoarthritis Yes Overview Signed 03/03/2025 5:57 PM by Cintia Duckworth APRN, DNP Severe left greater than right glenohumeral joint osteoarthritis Moderate right and mild to moderate left hip osteoarthritis Incidental finding on imaging Follow-up with PCP for surveillance Left renal stone Yes Overview Signed 03/03/2025 5:58 PM by Cintia Duckworth APRN, DNP 8mm left-sided renal collecting system stone Incidental finding on imaging Follow-up with PCP for surveillance Urinary retention Yes Overview Addendum 03/04/2025 5:54 PM by Cintia Duckworth APRN, DNP Intermittent catheterization x 2 Resolved Delirium Yes Overview Signed 03/04/2025 5:56 PM by Cintia Duckworth APRN, DNP Delirium precautions -Recommend delirium precautions: lights on during the day, lights and tv off at night, frequent re-orienting to place, time and situation, encouragement of visitation by familiar people, and use of aides if hearing or vision impairment. Restraints should be minimized as much as possible given association with prolongation of delirium. Delirium may persist weeks to months after the initial insult. Sleep/wake cycle Resumed home memantine Started seroquel BID Plan: - Brace when OOB - PT/OT - Bowel regimen - MMPC - Delirium precautions; sleep/wake cycle Discharge Dispo: [facility] Edited by: Shan Ashley APRN at 03/08/2025 1345 Shan Ashley APRN * Progress Notes - Eleanor Rod - 03/08/2025 11:15 AM EDT Case Management Adult Progress Note Kelley Moncada 84 y.o. female CSN: [id number] Admission: 03/02/2025 4:46 PM Primary Problem: Fall from standing, initial encounter Additional Comments Per SGT provider, pt is medically ready for d/c planning to [facility]. Pt is agreeable to Praveen Osei in [facility], [facility], or Mer[facility] Barker in [place]. Praveen Osei currently reviewing and [facility] this [facility]. CM will continue to follow. Eleanor Rod * Care Plan - Everardo Page - 03/08/2025 7:16 AM EDT Problem: Adult Inpatient Plan of Care Goal: Plan of Care Review Outcome: Ongoing, Progressing Flowsheets (Taken 03/07/2025 0726) Progress: improving Plan of Care Reviewed With: patient Goal: Patient-Specific Goal (Individualized) Outcome: Ongoing, Progressing Flowsheets (Taken 03/08/2025 0700) Patient/Family-Specific Goals (Include Timeframe): Pt will remain free from fall/injury this shift. Individualized Care Needs: Saftey Anxieties, Fears or Concerns: Going home Goal: Absence of Hospital-Acquired Illness or Injury Outcome: Ongoing, Progressing Goal: Optimal Comfort and Wellbeing Outcome: Ongoing, Progressing Goal: Readiness for Transition of Care Outcome: Ongoing, Progressing Problem: Self-Care Deficit Goal: Improved Ability to Complete Activities of Daily Living Outcome: Ongoing, Progressing Problem: Mobility Impairment Goal: Optimal Mobility Outcome: Ongoing, Progressing * Care Plan - Luma Monge - 03/07/2025 8:02 PM EDT Problem: Adult Inpatient Plan of Care Goal: Plan of Care Review Outcome: Ongoing, Progressing Goal: Patient-Specific Goal (Individualized) Outcome: Ongoing, Progressing Goal: Absence of Hospital-Acquired Illness or Injury Outcome: Ongoing, Progressing Goal: Optimal Comfort and Wellbeing Outcome: Ongoing, Progressing Goal: Readiness for Transition of Care Outcome: Ongoing, Progressing Problem: Self-Care Deficit Goal: Improved Ability to Complete Activities of Daily Living Outcome: Ongoing, Progressing Problem: Mobility Impairment Goal: Optimal Mobility Outcome: Ongoing, Progressing * Progress Notes - Diogo Tejada MD - 03/07/2025 8:45 AM EDT 03/07/25 Kelley Moncada HPI Kelley Moncada is a 84 yo Female with a PMHx of HTN and Dementia who presents from OSH on 03/02 following a fall on Wednesday 02/28. Unable to stand or walk due to back pain. (-) blood thinners. Injuriesinclude: T11 fracture involving the T11- 12 disc space. Past 24 hours: Patient sitting up in bed A&O. VSS. NAD. NAEON. On RA, no SOA. Tolerating PO diet, no N/V, abd pain. Last BM 03/04. Mobilizing as able. Pain well controlled. Braced. Medically readyfor subacute. No issues. Update: Brace at bedside and PT/OT recommend [facility] Edited by: Diogo Tejada MD at 03/07/2025 0845 Relevant review of systems was obtained as able and is negative unless stated above in HPI. Vital signs: Vitals: 03/07/25 0730 BP: 131/80 Pulse: 62 Resp: Temp: 36.3 ??C (97.3 ??F) SpO2: 93% Physical Exam Constitutional: Appearance: Normal appearance. Cardiovascular: Rate and Rhythm: Normal rate. Pulmonary: Effort: Pulmonary effort is normal. Musculoskeletal: General: No swelling or deformity. Skin: Capillary Refill: Capillary refill takes less than 2 seconds. Neurological: General: No focal deficit present. Mental Status: She is alert. Intake/Output Summary (Last 24 hours) at 03/07/2025 0846 Last data filed at 03/07/2025 0438 Gross per 24 hour Intake 100 ml Output 750 ml Net -650 ml Lines/Drains/Tubes: Patient Lines/Drains/Airways Status Active Airway None Output by Drain (mL) 03/05/25 0700 - 03/05/25 1859 03/05/25 1900 - 03/06/25 0659 03/06/25 0700 - 03/06/25 1859 03/06/25 1900 - 03/07/25 0659 03/07/25 07 - 03/07/25 0846 Patient has no LDAs of requested type attached. Labs in last 18 hours: CBC WBC ?? Hb ?? Plt ?? Hct ?? ANC ?? INR ??, PTT ??, Anti-Xa ?? MCV ?? BMP Na ?? Cl ?? BUN ?? Glu ?? K ?? Co2 ?? Cr ?? Ca ?? iCa ?? Mg ??, Phos ?? Lactate ?? LFT AST ?? AlkPhos ?? T Prot ?? ALK ?? Bili ?? Alb ?? D.Bili ?? Lab Trends: H/H Results from last 7 days Lab Units 03/02/25 1844 HEMOGLOBIN g/dL 12.0 HEMATOCRIT % 34.7 INR Results from last 7 days Lab Units 03/02/25 1844 INR 1.0 Cr Results from last 7 days Lab Units 03/02/25 1844 CREATININE mg/dL 1.02 Medications reviewed. Vital signs reviewed. Labs reviewed. Radiography reviewed. Assessment and Plan: Medical Problems and Relevant Plans Hospital Problems POA * (Principal) Fall from standing, initial encounter Yes Overview Signed 03/03/2025 5:49 PM by Cintia Duckworth APRN, SANDIE Admitted SGT Tertiary exam 03/03 Closed T11 fracture (CMS/HCC) Yes Overview Signed 03/03/2025 5:50 PM by Cintia Duckworth APRN, SANDIE NSGY consulted - No acute neurosurgical intervention - MRI L spine without evidence of ligamentous injury. - Neurosurgery to order TLSO - TLSO to be worn when OOB - Please have patient follow up at [facility] with Neurosurgery NANETTE in 4-6 weeks with AP/Lateral XR of thelumbar spine and AP/Lateral XR of the thoracic spine: [facility] ([facility]) Clinic, [address], 1st [address], [address] [place] [address] #[phone] HTN (hypertension) Yes Overview Addendum 03/07/2025 8:42 AM by Diogo Tejada MD home medications Dementia (CMS/HCC) Yes Overview Addendum 03/04/2025 5:57 PM by Cintia Duckworth APRN, DNP Resumed home memantine Started seroquel BID Reorient when necessary Delirium precautions Hyponatremia Yes Overview Signed 03/03/2025 5:52 PM by Cintia Duckworth APRN, DNP Encourage fluids and nutritional optimization CTM Protein calorie malnutrition (CMS/HCC) Yes Overview Signed 03/03/2025 5:52 PM by Cintia Duckworth APRN, DNP Total protein 5.7 on admission Nutritional optimization Nutritional supplements Cervical spine degeneration Yes Overview Signed 03/03/2025 5:54 PM by Cintia Duckworth APRN, DNP Fluid signal in the central and posterior aspects of the C4-C5 disc. Possible discontinuity of the posterior longitudinal ligament at the C4-C5 level. C3-4: Uncovertebral hypertrophy with bilateral facet arthropathy and ligamentum flavum thickening. There is near complete effacement of the dorsal and ventral thecal sac. Severe bilateral neuroforaminal narrowing. C4-5: Uncovertebral hypertrophy and facet arthropathy. Effacement of the ventral thecal sac. Mild right neuroforaminal narrowing. The left neuroforamen is widely patent. C5-6: Bilateral uncovertebral hypertrophy with minimal ligamentum flavum thickening. Effacement of the ventral thecal sac. The neuroforamina are widely patent. C6-7: Disc osteophyte complex and bilateral uncovertebral hypertrophy and ligamentum flavum thickening. Effacement of the dorsal and ventral thecal sac with slight indentation of the cord. The right neuroforamen is widely patent. Severe left neuroforaminal narrowing. Incidental finding on imaging Follow-up with PCP for surveillance Degeneration of intervertebral disc of thoracic region Yes Overview Signed 03/03/2025 5:55 PM by Cintia Duckworth APRN, DNP Degenerative changes are present at the following levels: Multilevel disc bulges, herniations, facet arthropathy, and ligamentum flavum thickening without evidence of high-grade spinal canal or neuroforaminal narrowing. The remaining intervertebral discs demonstrate expected intrinsic T2 hyperintensity. Moderate thoracic spine discogenic disease with osteophytosis. Incidental finding on imaging Follow-up with PCP for surveillance Lumbar degenerative disc disease Yes Overview Signed 03/03/2025 5:56 PM by Cintia Duckworth APRN, DNP Postsurgical changes related to L3-L4 laminectomies with posterior fusion of L1-S1. T12-L1: Disc bulge with bilateral facet arthropathy. L3-L4: Posterior decompression. No significant spinal canal narrowing. The right neuroforamina is patent. Severe left neuroforaminal narrowing. L4-L5: Posterior decompression. No significant spinal canal narrowing. The neural foramina are widely patent. L5-S1: Diffuse disc bulge with central disc extrusion and facet arthropathy. The spinal canal is widely patent. Severe bilateral neuroforaminal narrowing. Osteoarthritis Yes Overview Signed 03/03/2025 5:57 PM by Cintia Duckworth APRN, DNP Severe left greater than right glenohumeral joint osteoarthritis Moderate right and mild to moderate left hip osteoarthritis Incidental finding on imaging Follow-up with PCP for surveillance Left renal stone Yes Overview Signed 03/03/2025 5:58 PM by Cintia Duckworth APRN, DNP 8mm left-sided renal collecting system stone Incidental finding on imaging Follow-up with PCP for surveillance Urinary retention Yes Overview Addendum 03/04/2025 5:54 PM by Cintia Duckworth APRN, DNP Intermittent catheterization x 2 Resolved Delirium Yes Overview Signed 03/04/2025 5:56 PM by Cintia Duckworth APRN, DNP Delirium precautions -Recommend delirium precautions: lights on during the day, lights and tv off at night, frequent re-orienting to place, time and situation, encouragement of visitation by familiar people, and use of aides if hearing or vision impairment. Restraints should be minimized as much as possible given association with prolongation of delirium. Delirium may persist weeks to months after the initial insult. Sleep/wake cycle Resumed home memantine Started seroquel BID Plan: - NSGY: No neurosurgical intervention, TLSO ordered/pending, TLSO worn when OOB - Delirium precautions; sleep/wake cycle - Resumed all home meds Discharge Dispo: MEME, Medically ready Edited by: Diogo Tejada MD at 03/07/2025 0847 Diogo Tejada MD * Assessment & Plan Note - Diogo Tejada MD - 03/07/2025 8:43 AM EDT Associated Problem(s): Delirium Delirium precautions -Recommend delirium precautions: lights on during the day, lights and tv off at night, frequent re-orienting to place, time and situation, encouragement of visitation by familiar people, and use of aides if hearing or vision impairment. Restraints should be minimized as much as possible given association with prolongation of delirium. Delirium may persist weeks to months after the initial insult. Sleep/wake cycle Resumed home memantine Started seroquel BID * Assessment & Plan Note - Diogo Tejada MD - 03/07/2025 8:43 AM EDT Associated Problem(s): Cervical spine degeneration Fluid signal in the central and posterior aspects of the C4-C5 disc. Possible discontinuity of the posterior longitudinal ligament at the C4-C5 level. C3-4: Uncovertebral hypertrophy with bilateral facet arthropathy and ligamentum flavum thickening. There is near complete effacement of the dorsal and ventral thecal sac. Severe bilateral neuroforaminal narrowing. C4-5: Uncovertebral hypertrophy and facet arthropathy. Effacement of the ventral thecal sac. Mild right neuroforaminal narrowing. The left neuroforamen is widely patent. C5-6: Bilateral uncovertebral hypertrophy with minimal ligamentum flavum thickening. Effacement of the ventral thecal sac. The neuroforamina are widely patent. C6-7: Disc osteophyte complex and bilateral uncovertebral hypertrophy and ligamentum flavum thickening. Effacement of the dorsal and ventral thecal sac with slight indentation of the cord. The right neuroforamen is widely patent. Severe left neuroforaminal narrowing. Incidental finding on imaging Follow-up with PCP for surveillance * Assessment & Plan Note - Diogo Tejada MD - 03/07/2025 8:43 AM EDT Associated Problem(s): Protein calorie malnutrition (CMS/HCC) Total protein 5.7 on admission Nutritional optimization Nutritional supplements * Assessment & Plan Note - Diogo Tejada MD - 03/07/2025 8:43 AM EDT Associated Problem(s): Hyponatremia Encourage fluids and nutritional optimization CTM * Assessment & Plan Note - Diogo Tejada MD - 03/07/2025 8:42 AM EDT Associated Problem(s): Dementia (CMS/HCC) Resumed home memantine Started seroquel BID Reorient when necessary Delirium precautions * Assessment & Plan Note - Diogo Tejada MD - 03/07/2025 8:42 AM EDT Associated Problem(s): HTN (hypertension) home medications * Assessment & Plan Note - Diogo Tejada MD - 03/07/2025 8:39 AM EDT Associated Problem(s): Closed T11 fracture (CMS/HCC) NSGY consulted - No acute neurosurgical intervention - MRI L spine without evidence of ligamentous injury. - Neurosurgery to order TLSO - TLSO to be worn when OOB - Please have patient follow up at [facility] with Neurosurgery NANETTE in 4-6 weeks with AP/Lateral XR of thelumbar spine and AP/Lateral XR of the thoracic spine: [facility], [address], 1st floor, [address] [place] [address] #[phone] * Assessment & Plan Note - Diogo Tejada MD - 03/07/2025 8:39 AM EDT Associated Problem(s): Fall from standing, initial encounter Admitted SGT Tertiary exam 03/03 * Care Plan - Everardo Page - 03/07/2025 7:27 AM EDT Problem: Adult Inpatient Plan of Care Goal: Plan of Care Review Outcome: Ongoing, Progressing Flowsheets (Taken 03/07/2025 0726) Progress: improving Plan of Care Reviewed With: patient Goal: Patient-Specific Goal (Individualized) Outcome: Ongoing, Progressing Flowsheets (Taken 03/07/2025 0700) Patient/Family-Specific Goals (Include Timeframe): Pt will remain free from fall/injury this shift. Individualized Care Needs: Saftey Anxieties, Fears or Concerns: Going home Goal: Absence of Hospital-Acquired Illness or Injury Outcome: Ongoing, Progressing Goal: Optimal Comfort and Wellbeing Outcome: Ongoing, Progressing Goal: Readiness for Transition of Care Outcome: Ongoing, Progressing Problem: Self-Care Deficit Goal: Improved Ability to Complete Activities of Daily Living Outcome: Ongoing, Progressing Problem: Mobility Impairment Goal: Optimal Mobility Outcome: Ongoing, Progressing * Care Plan - Luma Monge - 03/06/2025 10:42 PM EDT Problem: Adult Inpatient Plan of Care Goal: Plan of Care Review Outcome: Ongoing, Progressing Goal: Patient-Specific Goal (Individualized) Outcome: Ongoing, Progressing Goal: Absence of Hospital-Acquired Illness or Injury Outcome: Ongoing, Progressing Goal: Optimal Comfort and Wellbeing Outcome: Ongoing, Progressing Goal: Readiness for Transition of Care Outcome: Ongoing, Progressing Problem: Self-Care Deficit Goal: Improved Ability to Complete Activities of Daily Living Outcome: Ongoing, Progressing Problem: Mobility Impairment Goal: Optimal Mobility Outcome: Ongoing, Progressing * Progress Notes - Hyacinth Chou - 03/06/2025 12:08 PM EDT Physical Therapy Evaluation Patient Name: Kelley Moncada Today's Date: 03/06/2025 PT Discharge Recommendations: Subacute rehab Equipment Recommended: Defer to facility History Kelley Moncada is 84 y.o. female admitted 03/02/2025 for work-up of Fall from standing, initial encounter. Problem List Active Hospital Problems Diagnosis Date Noted Delirium 03/04/2025 Closed T11 fracture ([facility]) 03/03/2025 HTN (hypertension) 03/03/2025 Dementia ([facility]/HCC) 03/03/2025 Hyperglycemia 03/03/2025 Hyponatremia 03/03/2025 Protein calorie malnutrition ([facility]/HCC) 03/03/2025 Cervical spine degeneration 03/03/2025 Degeneration of intervertebral disc of thoracic region 03/03/2025 Lumbar degenerative disc disease 03/03/2025 Osteoarthritis 03/03/2025 Left renal stone 03/03/2025 Urinary retention 03/03/2025 Fall from standing, initial encounter 03/02/2025 Procedures Past Medical History Patient has a past medical history of Dementia ([facility]) and Hypertension. Past Surgical History Patient has a past surgical history that includes Spine surgery. Precautions Medical Precautions: Spinal, Fall precautions Spinal Precautions : No bending, lifting, twisting, Log roll (TLSO OOB) Subjective Patient agreeable to PT session and excited to get out of bed Participants in Care Family/Caregiver Present: Yes Family/Caregiver: Other (Specify) (grandson's girlfriend and her roommate entering at end of session) Boilermaker: Not Applicable Presentation Oxygen Therapy: None (Room air) Lines and Tubes: Intravenous access Pre-Session: Supine, Head of bed elevated, Lines intact Pre-Session Comments: RN agreeable to session. Post-Session: Sitting in chair, RN notified, Lines intact, Chair alarm, Call light in reach Post-Session Comments: Pt positioned for comfort. All needs met/within reach. Family and nursing executive in room with pt at therapist exit. Orthoses: TLSO (donned upon on entry and exit of room) Home Living/Set-up Lives With: Family (willem) Home Type: House Home Adaptive Equipment: Rollator, Cane, shower chair Home Layout: One level (ramp entrance) Bathroom: Tub/Shower: Walk-in shower, Shower chair, Handheld shower head, Grab bars Bathroom: Toilet: Standard Home Living Comments: Pt reports that willem is home to provide 24 hour assistance. Prior Level of Function Receives Help From: (willem) Level of Mobility: Ambulatory- household only Mobility [place]: Independent gait with device History of Falls: Yes (pt reports no falls aside from this one leading to admission) ADL Performance: Needs assistance Bathing: Independent, Needs device Upper Body Dressing: Independent Lower Body Dressing: Independent Grooming: Independent Toileting: Independent, Needs device Eating: Independent Home Management Skills: Needs assist Patient/Family Goals Patient wants to return home Objective Pain No c/o pain during session. Patient positioned for proper alignment and comfort at end of session. Delirium Screening Lo Agitation Sedation Scale (RASS): Alert and calm Confusion Assessment Method-ICU (CAM-ICU/PCAM-ICU) Feature 3: Altered Level of Consciousness: Negative Cognition Overall Cognitive Status: Within Functional Limits Arousal/Alertness: Appropriate responses to stimuli Mood/Behavior: Alert Orientation Level: Oriented X4 Single Step Commands: Consistently Multi-Step Commands: Consistently Method of Communication: Verbal Vision - Basic Assessment Baseline Vision: Glasses distance Current Vision: Intact Right Upper Extremity Examination RUE Assessment: Within Functional Limits Manual Muscle Testing - RUE: Within functional limits (not formally assessed; grossly 3+/5 based onobservation) Sensation Light Touch: Right Upper Extremity: Intact Left Upper Extremity Examination LUE ROM Assessment LUE Assessment: Within Functional Limits Manual Muscle Testing - LUE Manual Muscle Testing - LUE: Within functional limits (not formally assessed; grossly 3+/5 based onobservation) Sensation Light Touch: Left Upper Extremity: Intact Right Lower Extremity Examination RLE ROM Assessment RLE Assessment: Within Functional Limits Manual Muscle Testing - RLE Manual Muscle Testing - RLE: Within functional limits (not formally assessed; grossly 3+/5 based onobservation) Sensation Light Touch: Right Lower Extremity: Intact Left Lower Extremity Examination LLE Assessment: Within Functional Limits Manual Muscle Testing: Within functional limits (not formally assessed; grossly 3+/5 based on observation) Sensation Light Touch: Left Lower Extremity: Intact Bed Mobility Bed Mobility Exam: Rolling/Turning Level of [place]: Moderate assist (50% patient effort) Physical/Nonphysical Assist: Verbal Cues, Nonverbal cues (demo/gestures), Moderate cues Assistive Device: Bed rails Bed Mobility Exam: Scooting/Bridging Level of [place]: Contact guard (to scoot out to EOB while seated) Physical/Nonphysical Assist: Nonverbal cues (demo/gestures), Verbal Cues, Minimal cues Assistive Device: Bed rails Bed Mobility Exam: Supine to Sit Level of [place]: Moderate assist (50% patient's effort) Physical/Nonphysical Assist: Nonverbal cues (demo/gestures), Verbal Cues, Moderate cues, Additionalassist utilized for safety Assistive Device: Bed rails Transfers Transfer Exam: Sit to stand Level of [place]: Minimum assist (75% patient's effort) (x 2 trials) Physical/Nonphysical Assist: Nonverbal cues (demo/gestures), Verbal Cues, Minimal cues Assistive Device: Walker, rolling Transfer Exam: Stand to Sit Level of [place]: Minimum assist (75% patient's effort) (x 2 trials) Physical/Nonphysical Assist: Nonverbal cues (demo/gestures), Verbal Cues, Minimal cues Assistive Device: Walker, rolling Balance Postural Appearance Posture: Stooped posture, Forward head, Rounded shoulders Static Sitting Balance Static Sitting-Balance Support: Feet supported Static Sitting-Level of Assistance: Standby assist Dynamic Sitting Balance Dynamic Sitting-Balance Support: Feet supported Dynamic Sitting-Balance: Lateral weight shifts, Anterior/Posterior weight shifts Level of Assistance: Contact guard Static Standing Balance Static Standing-Balance Support: Left upper extremity support, Right upper extremity support Static Standing-Level of Assistance: Minimum assistance Dynamic Standing Balance Dynamic Standing-Balance Support: Right upper extremity support, Left upper extremity support Dynamic Standing-Balance: Anterior/Posterior weight shifts, Lateral weight shifts Dynamic Standing Level of Assistance: Minimum assistance Therapeutic Activity (10 minutes) Patient performed bed mobility, static sitting balance, dynamic sitting balance, sit to/from stand transfers, static standing balance, and dynamic standing balance to promote upright activity tolerance, improved independence with functional mobility, and dynamic balance. Pt required max verbal, visual, and tactile cues to utilize improved body mechanics and BUE placement for safe ascent/descent to/from surfaces and BUE and BLE sequencing while performing bed mobility with log roll technique to maintain post-op restrictions and for safety, energy conservation, and for improved independence andbalance. The patient denied dizziness with position changes. Skilled intervention also required forline management, monitoring vital signs, and pt preparation for mobility tasks. Patient educated during session regarding fit of TLSO, proper sitting and laying posture, importance of adherence to spinal restrictions, performance of log roll during bed mobility to reduce strain on back, and benefits of mobility. She verbalized understanding and will benefit from continued education and reinforcement. Gait Training (15 minutes) Device: Rolling walker Assistance: Minimum assistance, Moderate verbal cues Distance: 20 feet + seated break + 15 feet Gait Analysis: Patient ambulates with extremely decreased gait speed and bre, shortened step length, and decreased step height. She demonstrates mild path deviations and is inconsistent with her positioning within the base of the RW. She demonstrated multiple small LOBs laterally and posteriorly requiring Min A for stability. Gait Interventions: Patient ambulating with modified reciprocal gait pattern. Patient requiring verbal cues, visual cues, and tactile cues for improved quality of movement, upright posture, forward gaze, remaining within base of RW, and pathfinding. Standardized Assessments [facility] 6-Clicks Mobility Assessment Difficulty patient has turning over in bed (including adjusting bedclothes, sheets, and blankets)?:A lot Difficulty patient has sitting down on and standing up from a chair with arms (wheelchair, bedside commode, etc.)?: A little Difficulty patient has moving from lying on back to sitting on the side of the bed?: A lot How much help does the patient need moving to and from a bed to a chair (including a wheelchair)?: A little How much help does the patient need to walk in hospital room?: A little How much help does the patient need climbing 3-5 steps with a railing?: A little [facility] 6-Clicks Mobility Assessment Total : 16 No data recorded Assessment The patient participated in initial evaluation and treatment with dizziness reported after ambulation back to chair from bathroom. This improved with return to sitting. The patient demonstrates the below listed impairments and will benefit from skilled IP PT and MEME to return to independence with use of rollator for safe discharge home with grandson and reduced fall and readmission risk as well as reduced caregiver burden. The patient currently is at a high fall risk. Impairments: Decreased endurance, ventilation, and/or gas exchange, Impaired functional mobility/transfers, Decreased strength, Impaired gait dynamics/performance, Impaired balance, Impaired motor planning, Impaired cognition/safety awareness, Impaired postural/trunk control Activity Limitations: Inability to ambulate independently, Inability to transfer independently, Inability to ambulate household distances, Inability to complete ADLs independently, Inability to ambulate community distances Participation Restrictions: Self-care, Home management, Work, Community leisure Activity Tolerance: Standing, Sitting, Walking, Tolerates 30 min activity with multiple rests Evaluation/Treatment Tolerance: Patient limited by fatigue Diagnosis: Impaired functional mobility s/p hospitalization 2/ fall Rehab Potential: Good, to achieve stated therapy goals Barriers to Discharge: Comorbidities Eval Complexity History Profile: 3 or more personal factors and/or comorbidities Clinical Presentation: Evolving clinical presentation with changing characteristics Clinical Decision Making: Moderate complexity PT Recommendations Discharge Destination: Subacute rehab Discharge Equipment: Defer to facility Plan Planned PT Interventions Balance training, Neuromuscular re-education, Bed mobility training, Gait training, Motor coordination training, Transfer training, Postural re-education, Strengthening, Caregiver training, Functional Mobility PT Frequency 3 - 5 times per week PT Duration 2 weeks Goals PT GOAL DETAILS Time Frame PT Goal 1: The patient will perform rolling bilaterally supine to/from sit transfers with SBA from flat surface 2 weeks PT Goal 2: The patient will perform 5/5 sit to/from stand transfers with SBA and AAD 2 weeks PT Goal 3: The patient will ambulate 150 feet with SBA and AAD 2 weeks PT Goal 4: The patient will be able to direct care while donning/doffing TLSO and independently state mobility restrictions 2 weeks Written by Hyacinth Chou on 03/06/25 at 4:33 PM. * Progress Notes - Jana Hernandez - 03/06/2025 12:07 PM EDT Occupational Therapy Evaluation Patient Name: Kelley Moncada Today's Date: 03/06/2025 OT Discharge Recommendations: Subacute rehab Equipment Recommended: Defer to facility History Kelley Moncada is 84 y.o. female admitted 03/02/2025 for work-up of Fall from standing, initial encounter. Problem List Active Hospital Problems Diagnosis Date Noted Delirium 03/04/2025 Closed T11 fracture ([facility]) 03/03/2025 HTN (hypertension) 03/03/2025 Dementia ([facility]/HCC) 03/03/2025 Hyperglycemia 03/03/2025 Hyponatremia 03/03/2025 Protein calorie malnutrition ([facility]) 03/03/2025 Cervical spine degeneration 03/03/2025 Degeneration of intervertebral disc of thoracic region 03/03/2025 Lumbar degenerative disc disease 03/03/2025 Osteoarthritis 03/03/2025 Left renal stone 03/03/2025 Urinary retention 03/03/2025 Fall from standing, initial encounter 03/02/2025 Procedures Past Medical History Patient has a past medical history of Dementia ([facility]) and Hypertension. Past Surgical History Patient has a past surgical history that includes Spine surgery. Precautions Medical Precautions: Spinal, Fall precautions Spinal Precautions : No bending, lifting, twisting, Log roll (TLSO OOB) Subjective Patient agreeable to Occupational Therapy evaluation. Pt stating I feel so much better after completing toileting and grooming ADLs. Participants in Care Family/Caregiver Present: Yes Family/Caregiver: Other (Specify) (willem's girlfriend and her roommate entering at end of session) Boilermaker: Not Applicable Presentation Oxygen Therapy: None (Room air) Lines and Tubes: Intravenous access Pre-Session: Supine, Head of bed elevated, Lines intact Pre-Session Comments: RN agreeable to session. Post-Session: Sitting in chair, RN notified, Lines intact, Chair alarm, Call light in reach Post-Session Comments: Pt positioned for comfort. All needs met/within reach. Family and nursing executive in room with pt at therapist exit. Orthoses: TLSO Home Living/Set-up Lives With: Family (grandson) Home Type: House Home Adaptive Equipment: Rollator, Cane, shower chair Home Layout: One level (ramp entrance) Bathroom: Tub/Shower: Walk-in shower, Shower chair, Handheld shower head, Grab bars Bathroom: Toilet: Standard Home Living Comments: Pt reports that grandson is home to provide 24 hour assistance. Prior Level of Function Receives Help From: (grandson) Level of Mobility: Ambulatory- household only Mobility [place]: Independent gait with device History of Falls: Yes (pt reports no falls aside from this one leading to admission) ADL Performance: Needs assistance Bathing: Independent, Needs device Upper Body Dressing: Independent Lower Body Dressing: Independent Grooming: Independent Toileting: Independent, Needs device Eating: Independent Home Management Skills: Needs assist Patient/Family Goals Statement Pt is eager to return home. Objective Pain Pt with no reports of pain throughout session. Delirium Screening Lo Agitation Sedation Scale (RASS): Alert and calm Confusion Assessment Method-ICU (CAM-ICU/PCAM-ICU) Feature 3: Altered Level of Consciousness: Negative Cognition Overall Cognitive Status: Within Functional Limits Arousal/Alertness: Appropriate responses to stimuli Mood/Behavior: Alert Orientation Level: Oriented X4 Single Step Commands: Consistently Multi-Step Commands: Consistently Method of Communication: Verbal Vision - Basic Assessment Baseline Vision: Glasses distance Current Vision: Intact Right Upper Extremity Examination RUE ROM Assessment RUE Assessment: Within Functional Limits Manual Muscle Testing - RUE: Within functional limits (not formally assessed; grossly 3+/5 based onobservation) Sensation Light Touch: Right Upper Extremity: Intact Left Upper Extremity Examination LUE ROM Assessment LUE Assessment: Within Functional Limits Manual Muscle Testing - LUE: Within functional limits (not formally assessed; grossly 3+/5 based onobservation) Sensation Light Touch: Left Upper Extremity: Intact Right Lower Extremity Examination RLE ROM Assessment RLE Assessment: Within Functional Limits Manual Muscle Testing - RLE: Within functional limits (not formally assessed; grossly 3+/5 based onobservation) Sensation Light Touch: Right Lower Extremity: Intact Left Lower Extremity Examination LLE ROM Assessment LLE Assessment: Within Functional Limits Manual Muscle Testing: Within functional limits (not formally assessed; grossly 3+/5 based on observation) Sensation Light Touch: Left Lower Extremity: Intact Bed Mobility Bed Mobility Exam: Rolling/Turning Level of [place]: Moderate assist (50% patient effort) Physical/Nonphysical Assist: Verbal Cues, Nonverbal cues (demo/gestures), Moderate cues Assistive Device: Bed rails Bed Mobility Exam: Scooting/Bridging Level of [place]: Contact guard (to scoot out to EOB while seated) Physical/Nonphysical Assist: Nonverbal cues (demo/gestures), Verbal Cues, Minimal cues Assistive Device: Bed rails Bed Mobility Exam: Supine to Sit Level of [place]: Moderate assist (50% patient's effort) Physical/Nonphysical Assist: Nonverbal cues (demo/gestures), Verbal Cues, Moderate cues Assistive Device: Bed rails Transfers Transfer Exam: Sit to stand Level of [place]: Minimum assist (75% patient's effort)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 ([facility]) [facility], [address], 1st floor, [address] [place] [address] #[phone] HTN (hypertension) Yes Overview Signed 03/03/2025 5:50 PM by Cintia Duckworth APRN, DNP Resume home medications when appropriate Dementia (CMS/HCC) Yes Overview Addendum 03/04/2025 5:57 PM by Cintia Duckworth APRN, DNP Resumed home memantine Started seroquel BID Reorient when necessary Delirium precautions Hyperglycemia Yes Overview Signed 03/03/2025 5:51 PM by Cintia Duckworth APRN, DNP Likely reactive 2/2 trauma Monitor Hyponatremia Yes Overview Signed 03/03/2025 5:52 PM by Cintia Duckworth APRN, DNP Encourage fluids and nutritional optimization CTM Protein calorie malnutrition (CMS/HCC) Yes Overview Signed 03/03/2025 5:52 PM by Cintia Duckworth APRN, DNP Total protein 5.7 on admission Nutritional optimization Nutritional supplements Cervical spine degeneration Yes Overview Signed 03/03/2025 5:54 PM by Cintia Duckworth APRN, DNP Fluid signal in the central and posterior aspects of the C4-C5 disc. Possible discontinuity of the posterior longitudinal ligament at the C4-C5 level. C3-4: Uncovertebral hypertrophy with bilateral facet arthropathy and ligamentum flavum thickening. There is near complete effacement of the dorsal and ventral thecal sac. Severe bilateral neuroforaminal narrowing. C4-5: Uncovertebral hypertrophy and facet arthropathy. Effacement of the ventral thecal sac. Mild right neuroforaminal narrowing. The left neuroforamen is widely patent. C5-6: Bilateral uncovertebral hypertrophy with minimal ligamentum flavum thickening. Effacement of the ventral thecal sac. The neuroforamina are widely patent. C6-7: Disc osteophyte complex and bilateral uncovertebral hypertrophy and ligamentum flavum thickening. Effacement of the dorsal and ventral thecal sac with slight indentation of the cord. The right neuroforamen is widely patent. Severe left neuroforaminal narrowing. Incidental finding on imaging Follow-up with PCP for surveillance Degeneration of intervertebral disc of thoracic region Yes Overview Signed 03/03/2025 5:55 PM by Cintia Duckworth APRN, DNP Degenerative changes are present at the following levels: Multilevel disc bulges, herniations, facet arthropathy, and ligamentum flavum thickening without evidence of high-grade spinal canal or neuroforaminal narrowing. The remaining intervertebral discs demonstrate expected intrinsic T2 hyperintensity. Moderate thoracic spine discogenic disease with osteophytosis. Incidental finding on imaging Follow-up with PCP for surveillance Lumbar degenerative disc disease Yes Overview Signed 03/03/2025 5:56 PM by Cintia Duckworth APRN, DNP Postsurgical changes related to L3-L4 laminectomies with posterior fusion of L1-S1. T12-L1: Disc bulge with bilateral facet arthropathy. L3-L4: Posterior decompression. No significant spinal canal narrowing. The right neuroforamina is patent. Severe left neuroforaminal narrowing. L4-L5: Posterior decompression. No significant spinal canal narrowing. The neural foramina are widely patent. L5-S1: Diffuse disc bulge with central disc extrusion and facet arthropathy. The spinal canal is widely patent. Severe bilateral neuroforaminal narrowing. Osteoarthritis Yes Overview Signed 03/03/2025 5:57 PM by Cintia Duckworth APRN, DNP Severe left greater than right glenohumeral joint osteoarthritis Moderate right and mild to moderate left hip osteoarthritis Incidental finding on imaging Follow-up with PCP for surveillance Left renal stone Yes Overview Signed 03/03/2025 5:58 PM by Cintia Duckworth APRN, DNP 8mm left-sided renal collecting system stone Incidental finding on imaging Follow-up with PCP for surveillance Urinary retention Yes Overview Addendum 03/04/2025 5:54 PM by Cintia Duckworth APRN, DNP Intermittent catheterization x 2 Resolved Delirium Yes Overview Signed 03/04/2025 5:56 PM by Cintia Duckworth APRN, DNP Delirium precautions -Recommend delirium precautions: lights on during the day, lights and tv off at night, frequent re-orienting to place, time and situation, encouragement of visitation by familiar people, and use of aides if hearing or vision impairment. Restraints should be minimized as much as possible given association with prolongation of delirium. Delirium may persist weeks to months after the initial insult. Sleep/wake cycle Resumed home memantine Started seroquel BID Plan: - NSGY: No neurosurgical intervention, TLSO ordered/pending, TLSO worn when OOB - MMPC - Bowel regimen - Delirium precautions; sleep/wake cycle - Nutritional supplements - Resumed all home meds Discharge Dispo: Pending TLSO brace and PT/OT Edited by: Shan Ashley APRN at 03/05/2025 1507 Shna Ashley APRN * Progress Notes - Diane Hair RN - 03/05/2025 12:17 PM EDT Case Management Adult Initial Progress Note Kelley Vangney 84 y.o. female CSN: [id number] Admission: 03/02/2025 4:46 PM Primary Problem: Fall from standing, initial encounter Payroll Benefits Clerk reviewed chart and spoke with patient's daughter to complete this Initial Case Management Assessment. PCP: Dg Kang MD Emergency Contact: Extended Emergency Contact Information Primary Emergency Contact: LAUREANO,LEAH Mobile Relation: Daughter Preferred language: Senegalese Boilermaker needed? No Secondary Emergency Contact: Herber Torres Mobile Relation: Grandchild Insurance: Primary Visit Coverage Payer Plan Sponsor Code Group Number Group Name [employer] [id number] Primary Visit Coverage Subscriber Subscriber ID Subscriber Name Subscriber [employer] [facility] Subscriber Address [id number] Kelley Moncada [id number] [place] [address] Secondary Visit Coverage Payer Plan Sponsor Code Group Number Group Name MEDICAID-[facility] MEDICAID TRADITIONAL Secondary Visit Coverage Subscriber Subscriber ID Subscriber Name Subscriber [employer] [facility] Subscriber Address [id number] KELLEY MONCADA [id number] [place] [address] Patient information: Primary Caregiver: Family (grandson) Support System: Immediate family Daily Living Activities: Functional Status: Minimum assistance Living Arrangements: Family Type of Residence: Private residence, Single Level (ramp access) [address] [place] [address] Smoker in the Home?: No Current DME: Equipment Currently Used at Home: wheelchair, manual, walker, rolling, other (see comments) (BSC and walk in shower) Current DME Provider: No HH, HI, or dialysis Income Information: Income Source: Disabled Income/Expense Information: Expenses exceed income Current Resources Utilized: None Housing Circumstances-Z Codes: Housing Circumstances (select all that apply): Low Income (101-300% Federal Poverty Guidlines) - Z596 Patient Referred to: Financial Resources: Other (Comment) (N/A) Community Resources: Other (Comment) (N/A) Anticipated Discharge Date: TBD Patient's Discharge Goal: Patient/Family Anticipates Transition to: home with family, inpatient rehabilitation facility Assistance Available at Discharge: Current Outpatient/Agency/Support Group: DME Availability of Care Givers (#Hours): 24 hours Discharge Transport: Transportation Anticipated: family or friend will provide Follow Up Transport: Transportation Needed to Follow up Appoinments: Family/Friend will Provide Home Health / Home Infusion / Outpatient Dialysis Services: Current DME Provider: No HH, HI, or dialysis Living Will/Advance Directive/Power of Flight Teacher /Guardian: Yes, Pt's daughter Leah Laureano Additional Comments: Pt is pending TLSO and PT/OT eval. Pt lives with her grandson, Herber, and he can provide assistance and transportation. Pt's daughter, Leah, stated that they are agreeable to rehab in the [place] area if recommended. CM will continue to assist with discharge POC. Diane Hair RN * Clinician Note - Noreen Tristan - 03/05/2025 9:40 AM EDT Occupational Therapy Attempt Patient Name: Kelley Moncada Today's Date: 03/05/2025 Patient was attempted to be seen by occupational therapy 03/05/2025 for OT Evaluation however patient not appropriate due to medical status. Per chart review, pt awaiting TLSO prior to out of bed mobility. Occupational therapy team will follow-up when medically appropriate and post brace delivery. Written by Noreen Tristan on 03/05/25 at 9:40 AM. * Clinician Note - Hyacinth Anderson - 03/05/2025 8:27 AM EDT Physical Therapy Attempt Patient Name: Kelley Moncada Today's Date: 03/05/2025 Patient was attempted to be seen by physical therapy 03/05/2025 for PT Evaluation however patient not appropriate due to medical status (awaiting TLSO delivery). Physical therapy team will follow-up when medically appropriate. Written by Hyacinth Anderson on 03/05/25 at 8:27 AM. * Query Clarification Note - Cintia Duckworth APRN, DNP - 03/04/2025 5:46 PM EDT Physician Clarification Which, if any, of the following diagnoses is applicable for the pts mobility status on admission? [x]Age related physical debility []Reduced/impaired/decreased functional mobility []Other (please specify) This documentation will become part of the patient's medical record. * Progress Notes - Diane Hair RN - 03/04/2025 2:22 PM EDT Case Management Adult Progress Note Kelley Moncada 84 y.o. female CSN: [id number] Admission: 03/02/2025 4:46 PM Primary Problem: Fall from standing, initial encounter Anticipated Discharge Date: TBD Pt is pending TLSO and PT/OT eval. CM attempted to complete IA but pt's location had changed. CM called pt's daughter and left a VM. CM will complete IA as time permits. Diane Hair RN * Progress Notes - Cintia Duckworth APRN, DNP - 03/04/2025 8:53 AM EDT 03/04/25 Kelley Moncada HPI Kellye Moncada is a 84 yo Female with a PMHx of HTN and Dementia who presents from OSH on 03/02 following a fall on Wednesday 02/28. Unable to stand or walk due to back pain. (-) blood thinners. Injuriesinclude: T11 fracture involving the T11- 12 disc space. Past 24 hours: Patient sitting up in bed with family friend in the room. Awake and alert. [place]. Disoriented. Able to respond to simple commands. Hypertensive BP with all other VSS. Resumed home BP medications. NAD. On RA, no SOA. Overnight, RN reports that patient was getting out of bed without TLSO brace. Easily redirectable. Patient continues to attempt to get out of bed. Started seroquel BID. Resumed home medi cations to assistance with delirium and dementia. Discussed with patient and friend that she will still need to be measured for her TLSO brace. Once she receives the brace, she will be able to be evaluated by PT/OT. Pain is well controlled per patient. Urinary retention has resolved. Has episodes of incontinence and voiding spontaneously with purewick. Last BM was [facility]. Bowel regimen in place. Home medications resumed. Discussed plan of care with patient/family friend, RN, CM, and Pharm D who isin understanding. No further concerns per patient or nursing. Edited by: Cintia Duckworth, MACHINE SETUP OPERATOR, DNP at 03/04/2025 8998 Relevant review of systems was obtained as able and is negative unless stated above in HPI. Vital signs: Vitals: 03/04/25 1726 BP: 139/71 Pulse: 74 Resp: 20 Temp: 36.3 ??C (97.3 ??F) SpO2: 97% Physical Exam Vitals and nursing note reviewed. Constitutional: General: She is not in acute distress. HENT: Head: Normocephalic. Right Ear: Decreased hearing noted. Left Ear: Decreased hearing noted. Nose: Nose normal. Mouth/Throat: Mouth: Mucous membranes are moist. Pharynx: Oropharynx is clear. Eyes: Extraocular Movements: Extraocular movements intact. Conjunctiva/sclera: Conjunctivae normal. Cardiovascular: Rate and Rhythm: Normal rate and regular rhythm. Pulses: Normal pulses. Heart sounds: Normal heart sounds. Pulmonary: Effort: Pulmonary effort is normal. No respiratory distress. Breath sounds: Normal breath sounds. Chest: Chest wall: No tenderness. Abdominal: General: There is no distension. Palpations: Abdomen is soft. Tenderness: There is no abdominal tenderness. There is no guarding. Musculoskeletal: General: Tenderness present. Normal range of motion. Cervical back: Normal range of motion and neck supple. No rigidity or tenderness. Comments: Spinal tenderness with palpation and compression to T/L spine. No pelvic tenderness with rotation and palpation. All compartments are soft and compressible. Pulses are palpable and present. Skin: General: Skin is warm and dry. Capillary Refill: Capillary refill takes less than 2 seconds. Neurological: General: No focal deficit present. Mental Status: She is alert. Mental status is at baseline. She is disoriented. Motor: Tremor (facial) present. Psychiatric: Behavior: Behavior is cooperative. No intake or output data in the 24 hours ending 03/04/25 175 Lines/Drains/Tubes: Patient Lines/Drains/Airways Status Active Airway None Output by Drain (mL) 03/02/25 0700 - 03/02/25 18503/02/25 1900 - 03/03/25 0659 03/03/25 0700 - 03/03/25 1859 03/03/25 1900 - 03/04/25 0659 03/04/25 0700 - 03/04/25 1759 Patient has no LDAs of requested type attached. Labs in last 18 hours: CBC WBC ?? Hb ?? Plt ?? Hct ?? ANC ?? INR ??, PTT ??, Anti-Xa ?? MCV ?? BMP Na ?? Cl ?? BUN ?? Glu ?? K ?? Co2 ?? Cr ?? Ca ?? iCa ?? Mg ??, Phos ?? Lactate ?? LFT AST ?? AlkPhos ?? T Prot ?? ALK ?? Bili ?? Alb ?? D.Bili ?? Lab Trends: H/H Results from last 7 days Lab Units 03/02/25 1844 HEMOGLOBIN g/dL 12.0 HEMATOCRIT % 34.7 INR Results from last 7 days Lab Units 03/02/25 1844 INR 1.0 Cr Results from last 7 days Lab Units 03/02/25 1844 CREATININE mg/dL 1.02 Medications reviewed. Vital signs reviewed. Labs reviewed. Radiography reviewed. Assessment and Plan: Medical Problems and Relevant Plans Hospital Problems POA * (Principal) Fall from standing, initial encounter Yes Overview Signed 03/03/2025 5:49 PM by Cintia Duckworth APRN, DNP Admitted SGT Tertiary exam 03/03 Closed T11 fracture (CMS/HCC) Yes Overview Signed 03/03/2025 5:50 PM by Cintia Duckworth APRN, DNP NSGY consulted - No acute neurosurgical intervention - MRI L spine without evidence of ligamentous injury. - Neurosurgery to order TLSO - TLSO to be worn when OOB - Please have patient follow up at [facility] with Neurosurgery NANETTE in 4-6 weeks with AP/Lateral XR of thelumbar spine and AP/Lateral XR of the thoracic spine: [facility] ([facility]) [facility], [address], 1st [address], [address] [place] [address] #[phone] HTN (hypertension) Yes Overview Signed 03/03/2025 5:50 PM by Cintia Duckworth APRN, DNP Resume home medications when appropriate Dementia (CMS/HCC) Yes Overview Addendum 03/04/2025 5:57 PM by Cintia Duckworth APRN, DNP Resumed home memantine Started seroquel BID Reorient when necessary Delirium precautions Hyperglycemia Yes Overview Signed 03/03/2025 5:51 PM by Cintia Duckworth APRN, DNP Likely reactive 2/2 trauma Monitor Hyponatremia Yes Overview Signed 03/03/2025 5:52 PM by Cintia Duckworth APRN, DNP Encourage fluids and nutritional optimization CTM Protein calorie malnutrition (CMS/HCC) Yes Overview Signed 03/03/2025 5:52 PM by Cintia Duckworth APRN, DNP Total protein 5.7 on admission Nutritional optimization Nutritional supplements Cervical spine degeneration Yes Overview Signed 03/03/2025 5:54 PM by Cintia Duckworth APRN, DNP Fluid signal in the central and posterior aspects of the C4-C5 disc. Possible discontinuity of the posterior longitudinal ligament at the C4-C5 level. C3-4: Uncovertebral hypertrophy with bilateral facet arthropathy and ligamentum flavum thickening. There is near complete effacement of the dorsal and ventral thecal sac. Severe bilateral neuroforaminal narrowing. C4-5: Uncovertebral hypertrophy and facet arthropathy. Effacement of the ventral thecal sac. Mild right neuroforaminal narrowing. The left neuroforamen is widely patent. C5-6: Bilateral uncovertebral hypertrophy with minimal ligamentum flavum thickening. Effacement of the ventral thecal sac. The neuroforamina are widely patent. C6-7: Disc osteophyte complex and bilateral uncovertebral hypertrophy and ligamentum flavum thickening. Effacement of the dorsal and ventral thecal sac with slight indentation of the cord. The right neuroforamen is widely patent. Severe left neuroforaminal narrowing. Incidental finding on imaging Follow-up with PCP for surveillance Degeneration of intervertebral disc of thoracic region Yes Overview Signed 03/03/2025 5:55 PM by Cintia Duckworth APRN, DNP Degenerative changes are present at the following levels: Multilevel disc bulges, herniations, facet arthropathy, and ligamentum flavum thickening without evidence of high-grade spinal canal or neuroforaminal narrowing. The remaining intervertebral discs demonstrate expected intrinsic T2 hyperintensity. Moderate thoracic spine discogenic disease with osteophytosis. Incidental finding on imaging Follow-up with PCP for surveillance Lumbar degenerative disc disease Yes Overview Signed 03/03/2025 5:56 PM by Cintia Duckworth APRN, DNP Postsurgical changes related to L3-L4 laminectomies with posterior fusion of L1-S1. T12-L1: Disc bulge with bilateral facet arthropathy. L3-L4: Posterior decompression. No significant spinal canal narrowing. The right neuroforamina is patent. Severe left neuroforaminal narrowing. L4-L5: Posterior decompression. No significant spinal canal narrowing. The neural foramina are widely patent. L5-S1: Diffuse disc bulge with central disc extrusion and facet arthropathy. The spinal canal is widely patent. Severe bilateral neuroforaminal narrowing. Osteoarthritis Yes Overview Signed 03/03/2025 5:57 PM by Cintia Duckworth APRN, DNP Severe left greater than right glenohumeral joint osteoarthritis Moderate right and mild to moderate left hip osteoarthritis Incidental finding on imaging Follow-up with PCP for surveillance Left renal stone Yes Overview Signed 03/03/2025 5:58 PM by Cintia Duckworth APRN, DNP 8mm left-sided renal collecting system stone Incidental finding on imaging Follow-up with PCP for surveillance Urinary retention Yes Overview Addendum 03/04/2025 5:54 PM by Cintia Duckworth APRN, DNP Intermittent catheterization x 2 Resolved Delirium Yes Overview Signed 03/04/2025 5:56 PM by Cintia Duckworth APRN, DNP Delirium precautions -Recommend delirium precautions: lights on during the day, lights and tv off at night, frequent re-orienting to place, time and situation, encouragement of visitation by familiar people, and use of aides if hearing or vision impairment. Restraints should be minimized as much as possible given association with prolongation of delirium. Delirium may persist weeks to months after the initial insult. Sleep/wake cycle Resumed home memantine Started seroquel BID Plan: - NSGY: No neurosurgical intervention, TLSO ordered/pending, TLSO worn when OOB - MMPC - Bowel regimen - Intermittent catheterization x2; urinary retention; if continuing to retain, will anchor everett catheter - Delirium precautions; sleep/wake cycle - Nutritional supplements - Resumed all home meds Discharge Dispo: Pending TLSO brace and PT/OT Edited by: Cintia Duckworth APRN, DNP at 03/04/2025 8151 Cintia Duckworth APRN, DNP * Clinician Note - Wolf Ferreira - 03/04/2025 8:24 AM EDT Physical Therapy Attempt Patient Name: Kleley Moncada Today's Date: 03/04/2025 Patient was attempted to be seen by physical therapy 03/04/2025 for PT Evaluation however patient not appropriate due to medical status (awaiting TLSO). Physical therapy team will follow-up when medically appropriate. Written by Wolf Ferreira on 03/04/25 at 8:24 AM. * Clinician Note - Jana Hernandez - 03/04/2025 8:15 AM EDT Occupational Therapy Attempt Patient Name: Kelley Moncada Today's Date: 03/04/2025 Patient was attempted to be seen by occupational therapy 03/04/2025 for OT Evaluation however patient not appropriate due to medical status (awaiting TLSO). Occupational therapy team will follow-up when medically appropriate. Written by Jana Hernandez on 03/04/25 at 8:15 AM. * Significant Event - Mell Ramon MD - 03/03/2025 10:39 AM EDT I have ordered the patient a custom bi-valve rigid TLSO for spine stabilization, comfort and pain control. The patient needs a custom brace because T11 fx . The patient must wear the brace OOB for the next 12 weeks. The patient must don/doff the TLSO in the supine position with help from staff. Thepatient is allowed to be up to the bathroom, sit in the straight back chair and mobilize with the therapy team before the brace is delivered. Upright films are required after brace fitting. * Progress Notes - Cintia Duckworth, MACHINE SETUP OPERATOR, DNP - 03/03/2025 9:35 AM EDT TRAUMA SURGERY TERTIARY SURVEY 03/03/25 Kelley Moncada HPI Kelley Moncada is a 84 yo Female with a PMHx of HTN and Dementia who presents from OSH on 03/02 following a fall on Wednesday 02/28. Unable to stand or walk due to back pain. (-) blood thinners. Injuriesinclude: T11 fracture involving the T11- 12 disc space. Past 24 hours: Patient sitting up in bed with granddaughter in the room. Easily awaken. Able to respond to simple commands. Hypertensive BP with all other VSS. NAD. On RA, no SOA. Discussed injuries and recommendations made by Neurosurgery. Patient will need a TLSO brace before mobilizing with PT/OT. Explain to patient and granddaughter the process of TLSO brace along with PT/OT. Educated on home with DME vs rehab. They both verbalized understanding. Diet was resumed due to no surgical intervention. Denies N/V, abd pain. Upon arrival, has had urinary retention issues. Has been intermittently catheterized once. Will continue to monitor and could potentially need a everett catheter with medication. Last BM was [facility], according to granddaughter yesterday. Pain is well controlled. Tertiary exam completed. Denies smoking, alcohol intake, and illicit substance use. Discussed plan of care with patient/family, who is in understanding. No further concerns per patient or nursing. Edited by: Cintia Duckworth, INEZ, DNP at 03/03/2025 [id number] Are there limits on this patient's care or advanced wishes/documents available? No Past Medical History: Active Ambulatory Problems Diagnosis Date Noted No Active Ambulatory Problems Resolved Ambulatory Problems Diagnosis Date Noted No Resolved Ambulatory Problems Past Medical History: Diagnosis Date Dementia (CMS/HCC) Hypertension Past Surgical History: Surgical History[1] Home Medications: Prior to Admission medications Medication Sig Start Date End Date Taking? Authorizing Provider acetaminophen (Tylenol) 500 MG tablet Take 2 tablets by mouth every 6 hours as needed. Yes Ann-Marie Robertson MD aspirin 81 MG EC tablet Take 1 tablet by mouth daily. Yes Ann-Marie Robertson MD cetirizine (ZyrTEC) 10 MG tablet Take 1 tablet by mouth daily. Yes Ann-Marie Robertson MD cholecalciferol (Vitamin D-3) 50 MCG (2000 UT) capsule Take 1 capsule by mouth daily. Yes Ann-Marie Robertson MD cyanocobalamin 1000 MCG tablet Take 1 tablet by mouth daily. Yes Ann-Marie Robertson MD gabapentin (Neurontin) 300 MG capsule Take 2 capsules by mouth nightly. Yes Ann-Marie Robertson MD levalbuterol (Xopenex) 1.25 MG/3ML nebulizer solution Take 1 ampule by nebulization 3 times a day as needed (asthma). Yes Ann-Marie Robertson MD losartan (Cozaar) 100 MG tablet Take 1 tablet by mouth daily. Yes Ann-Marie Robertson MD MELATONIN PO Take 1 tablet by mouth at night as needed. Yes Ann-Marie Robertson MD memantine (Namenda) 10 MG tablet Take 1 tablet by mouth 2 times a day. Yes Ann-Marie Robertson MD Multiple Vitamin (Multivitamin) tablet Take 1 tablet by mouth daily. Yes Ann-Marie Robertson MD pantoprazole (Protonix) 40 MG EC tablet Take 1 tablet by mouth daily. Do not crush, chew, or split.Yes Ann-Marie Robertson MD predniSONE (Deltasone) 20 MG tablet Take 1 tablet by mouth 3 times a day. Yes Ann-Marie Robertson MD primidone (Mysoline) 250 MG tablet Take 1 tablet by mouth nightly. Yes Ann-Marie Robertson MD propranolol (Inderal) 60 MG tablet Take 1 tablet by mouth 2 times a day. Yes Ann-Marie Robertson MD simvastatin (Zocor) 20 MG tablet Take 1 tablet by mouth nightly. Yes ProviderAnn-Marie MD 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: Pt has has no history on file for tobacco use, alcohol use, and drug use. (details as available below) 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 Substance and Sexual Activity Alcohol Use Not on file 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 Substance and Sexual Activity Drug Use Not on file Tobacco Use History[2] Audit-C for Alcohol Misuse Screening No results found for: ETOH Q1: How often did you have a drink containing alcohol in the past year? Never = 0 Q2: How many drinks did you have on a typical day when you were drinking in the past year? None = 0 Q3: How often did you have six or more drinks on one occasion in the past year? Never = 0 The AUDIT-C is scored on a scale of 0-12 (scores of 0 reflect no alcohol use). In men, a score of 4or more is considered positive; in women, a score of 3 or more is considered positive. Generally, the higher the AUDIT-C score, the more likely it is that the patient's drinking is affecting his/her health and safety. If screening positive (men = 4 women = 3), proceed with referral for alcohol misuse. TOTAL SCORE: 0 Brief Intervention Performed: Not indicated Referral to Treatment Made: Not indicated ITSS deferred due to patient acuity, inability to complete screening, or anticipated length of stay. ITSS to be completed when appropriate, added to 'To Do' for delayed provider screening. Relevant review of systems was obtained as able and is negative unless stated above in HPI. Vital signs: Vitals: 03/03/25 1625 BP: (!) 176/96 Pulse: 93 Resp: 18 Temp: 36.8 ??C (98.2 ??F) SpO2: 96% Tertiary exam as documented below: Physical Exam Constitutional: General: She is not in acute distress. HENT: Head: Normocephalic. Nose: Nose normal. Mouth/Throat: Mouth: Mucous membranes are moist. Pharynx: Oropharynx is clear. Eyes: Extraocular Movements: Extraocular movements intact. Conjunctiva/sclera: Conjunctivae normal. Neck: Comments: No midline cervical spine pain and -TTP Cardiovascular: Rate and Rhythm: Normal rate and regular rhythm. Pulses: Normal pulses. Heart sounds: Normal heart sounds. Pulmonary: Effort: Pulmonary effort is normal. No respiratory distress. Breath sounds: Normal breath sounds. Chest: Chest wall: No tenderness. Abdominal: General: There is no distension. Palpations: Abdomen is soft. Tenderness: There is no abdominal tenderness. There is no guarding. Musculoskeletal: General: Tenderness present. Normal range of motion. Cervical back: Normal range of motion and neck supple. Comments: Spinal tenderness with palpation and compression to T/L spine. No pelvic tenderness with rotation and palpation. All compartments are soft and compressible. Pulses are palpable and present. Skin: General: Skin is warm and dry. Capillary Refill: Capillary refill takes less than 2 seconds. Neurological: General: No focal deficit present. Mental Status: She is alert. Mental status is at baseline. Motor: Tremor (facial) present. Psychiatric: Behavior: Behavior is cooperative. Intake/Output Summary (Last 24 hours) at 03/03/2025 1802 Last data filed at 03/03/2025 1617 Gross per 24 hour Intake 645.67 ml Output 1595 ml Net -949.33 ml Lines/Drains/Tubes: Patient Lines/Drains/Airways Status Active Airway None Output by Drain (mL) 03/01/25 0700 - 03/01/25 1859 03/01/25 1900 - 03/02/25 0659 03/02/25 0700 - 03/02/25 1859 03/02/25 1900 - 03/03/25 0659 03/03/25 0700 - 03/03/25 1802 Patient has no LDAs of requested type attached. Labs in last 18 hours: CBC WBC ?? Hb ?? Plt ?? Hct ?? ANC ?? INR ??, PTT ??, Anti-Xa ?? MCV ?? BMP Na ?? Cl ?? BUN ?? Glu ?? K ?? Co2 ?? Cr ?? Ca ?? iCa ?? Mg ??, Phos ?? Lactate ?? LFT AST ?? AlkPhos ?? T Prot ?? ALK ?? Bili ?? Alb ?? D.Bili ?? Lab Trends: H/H Results from last 7 days Lab Units 03/02/25 1844 HEMOGLOBIN g/dL 12.0 HEMATOCRIT % 34.7 INR Results from last 7 days Lab Units 03/02/25 1844 INR 1.0 Cr Results from last 7 days Lab Units 03/02/25 1844 CREATININE mg/dL 1.02 Radiology: MR Cervical Spine wo IV Contrast Result Date: 03/03/2025 Impression: * Fluid signal in the C4-C5 level with potential discontinuity of the posterior longitudinal ligament which could reflect a fracture through the posterior aspect of the disc or an artifact. Correlation with mechanism of injury should be considered. * Nondisplaced fracture of the T11 vertebral body involving the anterior aspect of the inferior endplate and extending into the T11-T12 intervertebral disc. * No evidence of fracture or traumatic malalignment in the lumbar spine area * Nohigh-grade spinal canal or neuroforaminal narrowing in the cervical, thoracic, or lumbar spine. Severe neuroforaminal narrowing in the cervical and lumbar spine, as described. RECOMMENDATION: Cervical spine CT. CRITICAL RESULT: No. COMMUNICATION: Per this written report. Drafted by Bradley Clemente MD on 03/03/2025 5:02 AM Final report signed by Bradley Clemente MD on 03/03/2025 5:36 AM MR Thoracic Spine wo IV Contrast Result Date: 03/03/2025 Impression: * Fluid signal in the C4-C5 level with potential discontinuity of the posterior longitudinal ligament which could reflect a fracture through the posterior aspect of the disc or an artifact. Correlation with mechanism of injury should be considered. * Nondisplaced fracture of the T11 vertebral body involving the anterior aspect of the inferior endplate and extending into the T11-T12 intervertebral disc. * No evidence of fracture or traumatic malalignment in the lumbar spine area * Nohigh-grade spinal canal or neuroforaminal narrowing in the cervical, thoracic, or lumbar spine. Severe neuroforaminal narrowing in the cervical and lumbar spine, as described. RECOMMENDATION: Cervical spine CT. CRITICAL RESULT: No. COMMUNICATION: Per this written report. Drafted by Bradley Clemente MD on 03/03/2025 5:02 AM Final report signed by Bradley Clemente MD on 03/03/2025 5:36 AM MR Lumbar Spine wo IV Contrast Result Date: 03/03/2025 Impression: * Fluid signal in the C4-C5 level with potential discontinuity of the posterior longitudinal ligament which could reflect a fracture through the posterior aspect of the disc or an artifact. Correlation with mechanism of injury should be considered. * Nondisplaced fracture of the T11 vertebral body involving the anterior aspect of the inferior endplate and extending into the T11-T12 intervertebral disc. * No evidence of fracture or traumatic malalignment in the lumbar spine area * Nohigh-grade spinal canal or neuroforaminal narrowing in the cervical, thoracic, or lumbar spine. Severe neuroforaminal narrowing in the cervical and lumbar spine, as described. RECOMMENDATION: Cervical spine CT. CRITICAL RESULT: No. COMMUNICATION: Per this written report. Drafted by Bradley Clemente MD on 03/03/2025 5:02 AM Final report signed by Bradley Clemente MD on 03/03/2025 5:36 AM XR Chest 1 View Result Date: 03/02/2025 Impression: Degenerative and posttreatment changes without acute abnormality identified. CRITICAL RESULT: No. COMMUNICATION: Per this written report. Drafted by Virgil Albrecht MD on 03/02/2025 8:36 PM Final report signed by Virgil Albrecht MD on 03/02/2025 8:37 PM XR Abdomen 1 View Result Date: 03/02/2025 Impression: Degenerative and posttreatment changes without acute abnormality identified. CRITICAL RESULT: No. COMMUNICATION: Per this written report. Drafted by Virgil Albrecht MD on 03/02/2025 8:36 PM Final report signed by Virgil Albrecht MD on 03/02/2025 8:37 PM XR Eye Foreign Body Result Date: 03/02/2025 Impression: There are no metallic foreign bodies within, or in close proximity to, either orbit. CRITICAL RESULT: No. COMMUNICATION: Per this written report. Drafted by Bradley Clemente MD on 58:30 PM Final report signed by Bradley Clemente MD on 03/02/2025 8:31 PM I performed a complete tertiary exam, reviewed patient history, lab studies and all available imaging. All traumatic or incidental findings have been documented. Assessment and Plan: Medical Problems and Relevant Plans Hospital Problems POA * (Principal) Fall from standing, initial encounter Yes Overview Signed 03/03/2025 5:49 PM by Cintia Duckworth APRN, DNP Admitted SGT Tertiary exam 03/03 Closed T11 fracture (CMS/HCC) Yes Overview Signed 03/03/2025 5:50 PM by Cintia Duckworth APRN, DNP NSGY consulted - No acute neurosurgical intervention - MRI L spine without evidence of ligamentous injury. - Neurosurgery to order TLSO - TLSO to be worn when OOB - Please have patient follow up at [facility] with Neurosurgery NANETTE in 4-6 weeks with AP/Lateral XR of thelumbar spine and AP/Lateral XR of the thoracic spine: [facility] ([facility]) [facility], [address], 1st floor, [address] [place] [address] #[phone] HTN (hypertension) Yes Overview Signed 03/03/2025 5:50 PM by Cintia Duckworth APRN, DNP Resume home medications when appropriate Dementia (CMS/HCC) Yes Overview Signed 03/03/2025 5:51 PM by Cintia Duckworth APRN, DNP Resume home medications when appropriate Reorient when necessary Delirium precautions Hyperglycemia Yes Overview Signed 03/03/2025 5:51 PM by Cintia Duckworth APRN, DNP Likely reactive 2/2 trauma Monitor Hyponatremia Yes Overview Signed 03/03/2025 5:52 PM by Cintia Duckworth APRN, DNP Encourage fluids and nutritional optimization CTM Protein calorie malnutrition (CMS/HCC) Yes Overview Signed 03/03/2025 5:52 PM by Cintia Duckworth APRN, DNP Total protein 5.7 on admission Nutritional optimization Nutritional supplements Cervical spine degeneration Yes Overview Signed 03/03/2025 5:54 PM by Cintia Duckworth APRN, DNP Fluid signal in the central and posterior aspects of the C4-C5 disc. Possible discontinuity of the posterior longitudinal ligament at the C4-C5 level. C3-4: Uncovertebral hypertrophy with bilateral facet arthropathy and ligamentum flavum thickening. There is near complete effacement of the dorsal and ventral thecal sac. Severe bilateral neuroforaminal narrowing. C4-5: Uncovertebral hypertrophy and facet arthropathy. Effacement of the ventral thecal sac. Mild right neuroforaminal narrowing. The left neuroforamen is widely patent. C5-6: Bilateral uncovertebral hypertrophy with minimal ligamentum flavum thickening. Effacement of the ventral thecal sac. The neuroforamina are widely patent. C6-7: Disc osteophyte complex and bilateral uncovertebral hypertrophy and ligamentum flavum thickening. Effacement of the dorsal and ventral thecal sac with slight indentation of the cord. The right neuroforamen is widely patent. Severe left neuroforaminal narrowing. Incidental finding on imaging Follow-up with PCP for surveillance Degeneration of intervertebral disc of thoracic region Yes Overview Signed 03/03/2025 5:55 PM by Cintia Duckworth APRN, DNP Degenerative changes are present at the following levels: Multilevel disc bulges, herniations, facet arthropathy, and ligamentum flavum thickening without evidence of high-grade spinal canal or neuroforaminal narrowing. The remaining intervertebral discs demonstrate expected intrinsic T2 hyperintensity. Moderate thoracic spine discogenic disease with osteophytosis. Incidental finding on imaging Follow-up with PCP for surveillance Lumbar degenerative disc disease Yes Overview Signed 03/03/2025 5:56 PM by Cintia Duckworth APRN, DNP Postsurgical changes related to L3-L4 laminectomies with posterior fusion of L1-S1. T12-L1: Disc bulge with bilateral facet arthropathy. L3-L4: Posterior decompression. No significant spinal canal narrowing. The right neuroforamina is patent. Severe left neuroforaminal narrowing. L4-L5: Posterior decompression. No significant spinal canal narrowing. The neural foramina are widely patent. L5-S1: Diffuse disc bulge with central disc extrusion and facet arthropathy. The spinal canal is widely patent. Severe bilateral neuroforaminal narrowing. Osteoarthritis Yes Overview Signed 03/03/2025 5:57 PM by Cintia Duckworth APRN, DNP Severe left greater than right glenohumeral joint osteoarthritis Moderate right and mild to moderate left hip osteoarthritis Incidental finding on imaging Follow-up with PCP for surveillance Left renal stone Yes Overview Signed 03/03/2025 5:58 PM by Cintia Duckworth APRN, DNP 8mm left-sided renal collecting system stone Incidental finding on imaging Follow-up with PCP for surveillance Urinary retention Yes Overview Signed 03/03/2025 6:02 PM by Cintai Duckworth APRN, DNP Intermittent catheterization x 2 Plan: - NSGY: No neurosurgical intervention, TLSO ordered/pending, TLSO worn when OOB - Resumed diet; discontinue IVF - MMPC - Added bowel regimen - Intermittent catheterization x2; urinary retention; if continuing to retain, will anchor everett catheter - Delirium precautions - Added nutritional supplements - Tertiary exam 03/03 - Reviewed labs, imaging, and incidental findings - Resume home medications when verified Discharge Dispo: Pending TLSO brace and PT/OT Edited by: Cintia Duckworth APRN, DNP at 03/03/2025 [id number] Cintia Duckworth APRN, DNP New diagnoses, need for imaging or specialty consultation identified as present on admission via tertiary survey: YES [1] Past Surgical History: Procedure Laterality Date SPINE SURGERY prior L5-S1 hardware [2] 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 Tobacco Use Smoking Status Not on file Smokeless Tobacco Not on file * Clinician Note - Jana Hernandez - 03/03/2025 8:20 AM EDT Occupational Therapy Attempt Patient Name: Kelley Moncada Today's Date: 03/03/2025 Patient was attempted to be seen by occupational therapy 03/03/2025 for OT Evaluation however patient not appropriate due to medical status (awaiting TLSO brace delivery, logroll, T/L precautions). Occupational therapy team will follow-up when medically appropriate. Written by Jana Hernandez on 03/03/25 at 8:20 AM. * Clinician Note - Lexus Vera - 03/03/2025 8:18 AM EDT Physical Therapy Attempt Patient Name: Kelley Moncada Today's Date: 03/03/2025 Patient was attempted to be seen by physical therapy 03/03/2025 for PT Evaluation however patient not appropriate due to medical status (awaiting TLSO brace delivery, logroll, T/L precautions). Physical therapy team will follow-up when medically appropriate. Written by Lexus Vera on 03/03/25 at 8:18 AM. * Consults - Kal Castro - 03/03/2025 8:05 AM EDTAssociated Order(s): IP CONSULT TO NEUROSURGERY Reason For Consult: Thoracic fracture Requesting Service: EM Requested Date/Time: 03/03/2025 8:06 AM History Of Present Illness: Kelley Moncada is a 84 y.o. female with hx of L1-S1 fusion >15 yprior, presenting to ED with back pain after a fall earlier today. Patient reports she was trying to cross the road with her wall for when her walker bumped into something causing her to fall backwards landing on her back. Patient reports severe back pain preventing her from being able to stand o r walk. She was taken to outside hospital where CT imaging of the T and L-spine revealed fracture through the T11 vertebral body. Patient was transferred to for higher level of care. Neurosurgery was consulted for evaluation of Thoracic fracture. Patient denies any numbness, saddle anesthesia, weakness, urinary or bowel incontinence. Endorses 6/20 low back pain without radiation. Of note patient does not take blood thinning medications. Past Medical, Surgical, and 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 noncontributory except as mentioned in HPI Medications: Current Medications[1] Allergies: Sulfa drugs Physical Exam GEN: well developed, no acute distress HEENT: normocephalic, atraumatic, no scleral icterus, PULM: normal work of breathing ABD: soft, non-tender, non-distended SKIN: warm and dry, capillary refill <2 seconds PSYCHE: normal mood and affect Neuro Exam GCS (EMV): 465 Awake, alert, oriented Follows commands appropriately Speech clear PERRL, EOMI RUIZ symmetrically, no drift Strength: HF KE KF DF PF RLE: 5/5 5/5 5/5 5/5 5/5 LLE: 5/5 5/5 5/5 5/5 5/5 Sensation intact throughout bilateral upper and lower extremities No hyperreflexia No clonus Labs I personally reviewed the following pertinent labs Results from last 7 days Lab Units 03/02/25 1844 WBC 10*3/uL 7.31 HEMOGLOBIN g/dL 12.0 HEMATOCRIT % 34.7 PLATELETS 10*3/uL 161 Results from last 7 days Lab Units 03/02/25 1844 INR 1.0 Results from last 7 days Lab Units 03/02/25 1844 SODIUM mmol/L 130* POTASSIUM mmol/L 4.8 CHLORIDE mmol/L 96* CO2 mmol/L 24 BUN mg/dL 24* CREATININE mg/dL 1.02 EGFR mL/min/1.73m*2 54.0 GLUCOSE mg/dL 107* CALCIUM mg/dL 8.8* Imaging I personally reviewed CT L spine which showed fracture through vertebral body of T11 involving the T11-12 disc space. Assessment and Plan Kelley Moncada is a 84 y.o. female with hx of previous L1-S1 posterior fusion presenting after a fall from standing now with severe back pain and fracture of T1 Assessment/Plan Principal Problem: Fall from standing, initial encounter - No acute neurosurgical intervention - MRI L spine without evidence of ligamentous injury. - Neurosurgery to order TLSO - TLSO to be worn when OOB - Please have patient follow up at [facility] with Neurosurgery NANETTE in 4-6 weeks with AP/Lateral XR of thelumbar spine and AP/Lateral XR of the thoracic spine: [facility] ([facility]) [facility], [address], 1st floor, [facility] [address] [place] [address] #[phone] - Rest of care per primary Kal Castro MD Resident Physician, PGY-2 Department of neurosurgery Pager: [phone] [1] Current Facility-Administered Medications Medication Dose Route Frequency Provider Last Rate Last Admin acetaminophen (Tylenol) tablet 650 mg 650 mg Oral q6h ELIZABETH Ellis Canales MD 650 mg at 03/03/25 0521 dextrose 5 % and lactated Ringer's infusion 65 mL/hr Intravenous Continuous Ellis Canales MD 65mL/hr at 03/02/25 2341 65 mL/hr at 03/02/25 2341 enoxaparin (Lovenox) syringe 30 mg 30 mg Subcutaneous BID Ellis Canales MD methocarbamol (Robaxin) tablet 500 mg 500 mg Oral q8h Ellis Canales MD 500 mg at 03/02/25 2340 ondansetron ODT (Zofran-ODT) disintegrating tablet 4 mg 4 mg Oral q6h PRN Ellis Canales MD Or ondansetron (Zofran) injection 4 mg 4 mg Intravenous q6h PRN Ellis Canales MD Or ondansetron (Zofran) 4 MG/5ML solution 4 mg 4 mg Oral q6h PRN Ellis Canales MD oxyCODONE (Roxicodone) immediate release tablet 2.5 mg 2.5 mg Oral q6h PRN Ellis Canales MD Or oxyCODONE (Roxicodone) immediate release tablet 5 mg 5 mg Oral q6h PRN Ellis Canales MD 5 mg at03/03/25 0203 polyethylene glycol (Miralax) packet 17 g 17 g Oral Daily Cintia Duckworth APRN, DNP senna-docusate (Clair-Colace) 8.6-50 MG per tablet 1 tablet 1 tablet Oral Nightly Cintia Duckworth APRN, DNP sodium chloride 0.9 % flush 10 mL 10 mL Intravenous q12h Ellis Canales MD 10 mL at 03/02/25 2341 And sodium chloride 0.9 % flush 10 mL 10 mL Intravenous PRN Ellis Canales MD No current outpatient medications on file. Cosigned by Javier Garner MD at 03/03/2025 11:26 AM EDT Associated attestation - Javier Garner MD - 03/03/2025 11:26 AM EDT Javier Garner STAFF ATTESTATION (03/03/2025) I saw and evaluated the patient with the resident. I discussed the case with the residents and agree with the findings and plan as documented in the edited documentation below. Kelley Moncada presents with back pain after a fall earlier today. T11 fracture appears stable at this time. We will recommend bracing and follow-up in clinic. Javier Garner MD, PhD * Hospital Course - Lillianmaria gjulian Shan INEZ Barber - 03/03/2025 7:55 AM EDT Kelley Moncada is a 84 yo Female with a PMHx of HTN and Dementia who presents from OSH on 03/02 following a fall on Wednesday 02/28. Unable to stand or walk due to back pain. (-) blood thinners. Injuriesinclude: T11 fracture involving the T11- 12 disc space. Past 24h: Patient sitting up in chair A&O. VSS. NAD. NAEON. On RA, no SOA. Tolerating PO diet, no N/V, abd pain. Last BM 03/08. Mobilizing as able. Pain well controlled. Braced. Medically ready for subacute. Patient to [facility] to [facility] in [place]. Discussed care plan with family, nursing, and patient all in agreement. Physical therapy and occupational therapy evaluated the patient during hospitalization and recommend MEME At the time of discharge the patient was hemodynamically stable, tolerating PO, voiding spontaneously, normal bowel function, mobilizing appropriately, with their pain controlled with PO medication. At this time, the patient has obtained the maximum benefit from the present hospital stay, and so will be discharged to [facility]. DVT prophylaxis: None at [facility] Procedures: Non-operative management Mobility Restrictions: No mobility restrictions, mobilize as able to with TLSO brace in place Other Precautions: Thoracolumbar Spinal precautions (Up to 45 degrees, may side lie, no trapeze, no trunk rotation), Logroll TLSO brace to be worn when out of bed Wound Care: None Incidental Findings: -Cervical spine degeneration -Thoracic spine degeneration -Osteoarthritis -8mm left-sided renal stone Follow up: PCP: Follow up in 1-2 weeks post hospitalization for incidental findings and management of chronic conditions/medications Neurosurgery: 04/06/25 at 10am @ [facility], [address], 1st floor, [facility] [address], [place] [address] #[phone] SGT: NANETTE Saturday Clinic as needed; [address], [place] [facility] First Floor, Wing [address] Room [address] [place] [address], #[phone]. Questions or Concerns and Appointments If there are questions or concerns after discharge from the hospital, please call [phone] and ask for [facility] Nurse. Working hours are Saturday - Saturday 8:00 AM to 4:00 PM. After hours, weekends and holidays please call [phone] and ask for the resident telephone lineworker for [facility]. For appointments please call [phone]. Medication requests should be made between the hours of 9:00 AM to 3:00 PM Saturday thru Saturday. Please note that based upon recent changes to [place] law related to prescribing opioid pain medications, our providers will not provide refills on controlled medications after your hospital discharge following a major surgery or trauma. [place], [place] 201 KAR9:260. * H&P - Ellis Canales MD - 03/02/2025 10:47 PM EDTAssociated Order(s): Consult to Trauma Surgery Trauma Alert? No Consult to Trauma Surgery Consult performed by: Ellis Canales MD Consult ordered by: Jose Salinas MD Time of Consultation: 9pm Time of Trauma Evaluation: 9:45pm Arrival Date: 03/02/25 Arrival Time: 4:46pm Referring Hospital: [facility] Injury Date: 02/21/25 Injury Time: unknown Transport Mode: EMS Mechanism of Injury Fall Distance ground level Farm Related Injury: no Work Related Injury: no History Of Present Illness Kelley Moncada is a 84 y.o. female with PMH of HTN, dementia, presenting with concern for persistent lower back pain after fall on 02/21 on concrete when she hit head, unsure of LOC. She was imagedat OSH at that time and discharged home with no concern for injuries. She continues to have lower back pain at home as well as weakness, and thus went to OSH again for evaluation where CT imaging showed concern for T11 fracture, prompting transfer to . Here, neurosurgery was consulted. Trauma surgery also consulted for evaluation and admission. Currently stable. MRIs ordered and pending. Reports no neurological deficits. Patient unable to provide complete medical history; pending review of OSH and meds. Old Chart Reviewed: yes Total fluids given prior to arrival ? ml. Loss of Consciousness: unknown Past Medical History She has a past medical history of Dementia (CMS/HCC) and Hypertension. Reviewed as documented above Surgical History She has a past surgical history that includes Spine surgery. Unable to obtain Family History Family History[1] Reviewed as documented above 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 She has no history on file for tobacco use, alcohol use, and drug use. Reviewed as documented above Allergies Sulfa drugs Reviewed as documented above Medications Current Medications[2] Reviewed as documented above Occupational History Occupational history[3] Employer: No address on file. Unable to obtain Immunizations not reviewed VACCINE / DOSE Flu Tetanus Pneumovax Shingles Review of Systems Relevant review of systems was obtained as able and is negative unless stated above in HPI. Physical Exam HENT: Head: Normocephalic and atraumatic. Eyes: Extraocular Movements: Extraocular movements intact. Cardiovascular: Rate and Rhythm: Normal rate. Pulmonary: Effort: No respiratory distress. Abdominal: Palpations: Abdomen is soft. Musculoskeletal: General: No deformity. Cervical back: No rigidity. Comments: Lower back pain Skin: General: Skin is warm. Neurological: Mental Status: She is alert. Mental status is at baseline. Psychiatric: Mood and Affect: Mood normal. Thought Content: Thought content normal. Rectal exam was deferred. Last Recorded Vitals Blood pressure (!) 161/86, pulse 73, temperature 36.4 ??C (97.6 ??F), temperature source Oral, resp. rate 18, weight 80.1 kg (176 lb 9.4 oz), SpO2 96%. Diamond Sue Coma Scale Best Eye Response: Spontaneous Best Verbal Response: Oriented Best Motor Response: Follows commands Sue Coma Scale Score: 15 Intubated No Recent Results Labs in last 18 hours CBC WBC 7.31 Hb 12.0 Plt 161 Hct 34.7 ANC 5.69 INR 1.0, PTT ??, Anti-Xa ?? BMP Na 130 (L) Cl 96 (L) BUN 24 (H) Glu 107 (H) K 4.8 Co2 24 Cr 1.02 Ca 8.8 (L) iCa ?? Mg 1.9, Phos ?? Lactate ?? LFT AST 19 AlkPhos 92 T Prot 5.7 (L) ALK 25 Bili 0.4 Alb ?? D.Bili ?? Radiology FAST:Not Done Images associated: N/A Images personally reviewed and consistent with the following: Plain Films: KUB, CXR CT Scans: t/l spine Angiography: - Injuries: - anterior and inferior T11 fracture. Osteophyte at T10-11 with spinal canal compression Impression: 84F with recent fall on 02/21 who presents with concern for persistent pain in lower backwith imaging concerning for T11 fx. Medical Problems Problem List * (Principal) Fall from standing, initial encounter Closed T11 fracture ([facility]) Plan: - admit SGT - neurosurgery consulted, f/u recs - f/u MRIs - PT/OT - home meds as able once verified [1] No family history on file. [2] Current Facility-Administered Medications Medication Dose Route Frequency Provider Last Rate Last Admin acetaminophen (Tylenol) tablet 650 mg 650 mg Oral q6h [facility] Ellis Canales MD 650 mg at 03/03/25 0521 dextrose 5 % and lactated Ringer's infusion 65 mL/hr Intravenous Continuous Ellis Canales MD 65mL/hr at 03/02/25 2341 65 mL/hr at 03/02/25 2341 enoxaparin (Lovenox) syringe 30 mg 30 mg Subcutaneous BID Ellis Canales MD 30 mg at 03/03/25 0822 methocarbamol (Robaxin) tablet 500 mg 500 mg Oral q8h Ellis Canales MD 500 mg at 03/03/25 0822 ondansetron ODT (Zofran-ODT) disintegrating tablet 4 mg 4 mg Oral q6h PRN Ellis Canales MD Or ondansetron (Zofran) injection 4 mg 4 mg Intravenous q6h PRN Ellis Canales MD Or ondansetron (Zofran) 4 MG/5ML solution 4 mg 4 mg Oral q6h PRN Ellis Canales MD oxyCODONE (Roxicodone) immediate release tablet 2.5 mg 2.5 mg Oral q6h PRN Ellis Canales MD Or oxyCODONE (Roxicodone) immediate release tablet 5 mg 5 mg Oral q6h PRN Ellis Canales MD 5 mg at03/03/25 0203 polyethylene glycol (Miralax) packet 17 g 17 g Oral Daily Cintia Duckworth APRN, DNP senna-docusate (Clair-Colace) 8.6-50 MG per tablet 1 tablet 1 tablet Oral Nightly Cintia Duckworth APRN, DNP sodium chloride 0.9 % flush 10 mL 10 mL Intravenous q12h Ellis Canales MD 10 mL at 03/02/25 2341 And sodium chloride 0.9 % flush 10 mL 10 mL Intravenous PRN Ellis Canales MD No current outpatient medications on file. [3] Cosigned by Dank Davenport MD at 03/08/2025 1:27 PM EDT Associated attestation - Dnak Davenport MD - 03/08/2025 1:27 PM EDT I saw and evaluated the patient with the resident/fellow. I discussed the case with the resident/fellow and agree with the findings and plan as documented. * ED Provider Notes - Tian Chang MD - 03/02/2025 4:46 PM EDT Images from the original note were not included. - HPI Chief Complaint Patient presents with Fall fell about 4 days ago; pt comes back in today not able to stand or walk due to back pain. T10/11 with nondisplaced fractures above the level of prior spinal fusion. She is neuro intact. No blood thinners. Patient History Past Medical History[1] Surgical History[2] Family History[3] 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[4] Allergies: Allergies[5] Physical Exam ED Triage Vitals Temp Heart Rate Resp BP 03/02/25 1654 03/02/25 1654 03/02/25 1654 03/02/25 1654 36.7 ??C (98 ??F) 63 20 (!) 150/88 SpO2 Temp Source Heart Rate Source Patient Position 03/02/25 1654 03/02/25 2135 03/03/25 0158 03/02/25 2135 96 % Oral Monitor Sitting BP Location FiO2 (%) 03/02/25 2135 -- Left arm Physical Exam Constitutional: General: She is not in acute distress. HENT: Head: Normocephalic. Comments: No facial swelling Mouth/Throat: Mouth: Mucous membranes are moist. Pharynx: Oropharynx is clear. Cardiovascular: Rate and Rhythm: Normal rate. Pulmonary: Effort: Pulmonary effort is normal. No respiratory distress. Breath sounds: Normal air entry. Comments: Speaking full sentences. Symmetric chest rise Abdominal: General: There is no distension. Musculoskeletal: General: No deformity. Normal range of motion. Cervical back: Normal range of motion. Comments: Atraumatic, moves all extremities spontaneously Neurological: General: No focal deficit present. Mental Status: She is alert and oriented to person, place, and time. Mental status is at baseline. Sensory: No sensory deficit. Motor: No weakness. Comments: Awake Psychiatric: Behavior: Behavior normal. Diamond Coma Scale Score: 15 ED Course & MDM - Assessment: 84 y.o. female presents to ED with complaint of back pain. It should be noted that the chronic conditions includes dementia, which currently is not at goal therapy. This complicates the clinical picture because it Comorbidities: may be exacerbating symptoms Differential Diagnosis: fracture, spinal cord injury, hardware loosening, contusion In order to fully explore the differential diagnosis the following treatments and tests were ordered: ED Medication Administration from 03/02/2025 1446 to 03/02/20252246 Date/Time Order Dose Route Action 03/02/20252043 EDT HYDROmorphone (Dilaudid) injection 0.5 mg 0.5 mg Intravenous Not Given All Other Orders Ordered Status Ordering Provider 03/02/252246 Neurovascular checks Every 4 hours Comments: q4h Acknowledged CORNEL ELLIS 03/02/252246 Full code Continuous Acknowledged CORNEL [facility] 03/02/252246 NPO diet Diet effective now Acknowledged CORNEL [facility] 03/02/252246 Place sequential compression device Until discontinued Comments: SCDs must be in place and turned on EXCEPT when ACTIVELY ambulating. Acknowledged [facility] 03/02/252246 OT eval and treat Until therapy completed Lien CANALES [facility] 03/02/252246 PT eval and treat Until therapy completed Acknowledged COR[facility]EL [facility] 03/02/252246 Do Not Give Nicotine Replacement Until discontinued Acknowledged CORNEL [facility] 03/02/252246 Mobility Orders Until discontinued Acknowledged COR[facility]EL [facility] 03/02/252246 Incentive spirometry Every 1 hour while awake Lien CANALES [facility] 03/02/252246 Notify Provider Until discontinued Acknowledged CORNEL [facility] 03/02/252246 Vital Signs Until discontinued Comments: Every 1Hr x4, Then Every 4hrs Thereafter. Acknowledged [facility] 03/02/252246 Intake and Output - Strict Per unit protocol Lien CANALES [facility] 03/02/252246 Insert peripheral IV Once Placed in And Linked Group Acknowledged COR[facility]EL [facility] 03/02/252246 Saline lock IV Once Placed in And Linked Group Acknowledged CORNEL ELLIS 03/02/252246 Admit to inpatient Once Acknowledged CORNEL ELLIS 03/02/252052 Consult to Trauma Surgery Once Specialty: Trauma Surgery Provider: (Not yet assigned) Acknowledged ABILIO CHANGS N 03/02/252052 ED to floor bed request Once Completed BERNARDO, MODI N 03/02/251918 XR Abdomen 1 View Once Final result BERNARDO, MODI N 03/02/251918 Once Canceled BERNARDO, MODI N 03/02/251918 XR Eye Foreign Body Once Final result BERNARDO, MODI N 03/02/251918 XR Chest 1 View One time imaging Final result BERNARDO, MODI N 03/02/25 185 Extra Tubes Once Final result JOSE SALINAS M 03/02/25 185 Light Green Top PROCEDURE ONCE Final result JOSE SALINAS M 03/02/25 181 MR Thoracic Spine wo IV Contrast Once Final result BERNARDO, MODI N 03/02/25 181 MR Lumbar Spine wo IV Contrast Once Final result BERNARDO, MODI N 03/02/251814 Consult to Neurosurgery Once Specialty: Neurosurgery Provider: (Not yet assigned) Acknowledged BERNARDO, MODI N 03/02/25 181 MR Cervical Spine wo IV Contrast Once Final result BERNARDO, MODI N 03/02/25 180 CBC w/diff STAT Final result BERNARDO, MODI N 03/02/25 180 PT-INR STAT Final result BERNARDO, MODI N 03/02/25 180 Type and screen Start now Final result BERNARDO, MODI N 03/02/25 180 EKG now - STAT (adult) Once Final result BERNARDO, MODI N 03/02/25 180 CMP STAT Final result BERNARDO, MODI N 03/02/25 1807 Magnesium STAT Final result BERNARDO, MODI N 03/02/25 180 Urinalysis with reflex microscopic (Culture NOT Included) STAT Acknowledged BERNARDO, MODI N 03/02/25 180 Hepatitis C Antibody - ED Once Final result BERNARDO, MODI N 03/02/25 180 ED Protocol - HIV 1/2 Antibody/Antigen Screen Once Final result BERNARDO, MODI N 03/02/25 180 ED HIV 1/2 Antibody/Antigen Screen w/Reflex to HIV 1/2 Differentiation PROCEDURE ONCE Final result BERNARDO, MODI N Social Determinates of Health Risks (including Economic Stability, Education and level of understanding, Healthcare access and quality and concerning social factors): Lives far away Reviewed osh ct, agree with osh rads interpretation of t10/t11 fx, I had interactive discussion with nsgy spine who recommeneded mris and admission for bracing at minimum I had interactive discussion with sgt who agreed to evaluate pt for admission Ultimately, this patient was Was admitted (Admission) There were no encounter diagnoses.. Patient believed to require admission for the listed diagnoses. The Trauma Surgery service was consulted for admission and was agreeable to admit to Acute Floor (Med/Surg). ED Prescriptions None Disposition Admit Admitting/Attending Physician: DANK DAVENPORT [[id number]] Provider Care Team: SGT FLOOR 6 [[id number]] Are they the primary team?: Yes [1] - [1] No past medical history on file. [2] No past surgical history on file. [3] No family history on file. [4] [5] Allergies Allergen Reactions Sulfa Drugs Rash Tian Chang MD Resident 03/03/25 0656 Cosigned by Jose Salinas MD at 03/04/2025 8:47 AM EDT Associated attestation - Jose Salinas MD - 03/04/2025 8:47 AM EDT I saw and evaluated the patient with the resident/fellow. I discussed the case with the resident/fellow and agree with the findings and plan as documented. * ED Triage Notes - Esther Bloom RN - 03/02/2025 4:46 PM EDT Patient presents from OSH with back pain after fall on Saturday. OSH reports T10 fracture. documented in this encounter Plan of Treatment Upcoming Encounters Date Type Department Care Team (Late st Contact Info) Description 05/18/2025 9:20 AM EDT Office Visit [facility] [address] [place] [address] Amada Rose, MACHINE SETUP OPERATOR [address] [place] [address] documented as of this encounter Procedures Procedure Name Priority Date/Time Associated Diagnosis Comments URINALYSIS WITH REFLEX MICROSCOPIC STAT 03/03/2025 7:59 AM EDT MR LUMBAR SPINE WO IV CONTRAST STAT 03/03/2025 3:39 AM EDT MR THORACIC SPINE WO IV CONTRAST STAT 03/03/2025 3:39 AM EDT MR CERVICAL SPINE WO IV CONTRAST STAT 03/03/2025 3:39 AM EDT XR CHEST 1 VIEW STAT 03/02/2025 8:01 PM EDT XR ABDOMEN 1 VIEW STAT 03/02/2025 8:0 1 PM EDT XR EYE FOREIGN BODY STAT 03/02/2025 8 :01 PM EDT ED HIV 1/2 ANTIBODY/ANTIGEN SCREEN WITH REFLEX TO HIV I/II DIFFERENTIATION STAT 03/02/2025 6:44 PM EDT ED PROTOCOL HIV 1/2 ANTIBODY/ANTIGEN SCREEN W/REFLEX TO HIV 1/2 ANTIBODY DIFFERENTIATION STAT 03/02/2025 6:44 PM EDT EXTRA TUBE LIGHT GREEN TOP Routine 03/02/2025 6:44 PM EDT EXTRA TUBES Routine 03/02/2025 6:44 PM EDT HEPATITIS C ANTIBODY - ED W/REFLEX TO HCV QUANT PCR STAT 03/02/2025 6:44 PM EDT PROTHROMBIN TIME(PT) / INR STAT 03/02/2025 6:44 PM EDT CBC WITH AUTO DIFFERENTIAL STAT 03/02/2025 6:44 PM EDT TYPE AND SCREEN STAT 03/02/2025 6:44 PM EDT MAGNESIUM, PLASMA STAT 03/02/2025 6:4 4 PM EDT COMPREHENSIVE METABOLIC PANEL, PLASMA STAT 03/02/2025 6:44 PM EDT ECG ADULT STAT 03/02/2025 6:12 PM EDT documented in this encounter Results * Urinalysis with reflex microscopic (Culture NOT Included) (03/03/2025 7:59 AM EDT) Color, Urine Yellow LAB URINALYSIS - AUTOMATED METHOD 03/03/2025 8:06 AM EDT [facility] Clarity, Urine Clear LAB URINALYSIS - AUTOMATED METHOD 03/03/2025 8:06 AM EDT [facility] Spec [place], Urine 1.016 1.005 - 1.030 LAB URINALYSIS - AUTOMATED METHOD 03/03/2025 8:06 AM EDT [facility] pH, Urine 6.5 5.0 - 8.0 LAB URINALYSIS - AUTOMATED METHOD 03/03/2025 8:06 AM EDT [facility] Protein, Urine Negative Negative mg/dL LAB URINALYSIS - AUTOMATED METHOD 03/03/2025 8:06 AM EDT [facility] Glucose, Urine Negative Negative mg/dL LAB URINALYSIS - AUTOMATED METHOD 03/03/2025 8:06 AM EDT [facility] Ketones, Urine Negative Negative mg/dL LAB URINALYSIS - AUTOMATED METHOD 03/03/2025 8:06 AM EDT [facility] Blood, Urine Negative Negative LAB URINALYSIS - AUTOMATED METHOD 03/03/2025 8:06 AM EDT [facility] Bilirubin, Urine Negative Negative LAB URINALYSIS - AUTOMATED METHOD 03/03/2025 8:06 AM EDT [facility] Urobilinogen, Urine 0.2 0.2 to 1.0 mg/dL LAB URINALYSIS - AUTOMATED METHOD 03/03/2025 8:06 AM EDT [facility] Leukocytes, Urine Negative Negative LAB URINALYSIS - AUTOMATED METHOD 03/03/2025 8:06 AM EDT [facility] Nitrite, Urine Negative Negative LAB URINALYSIS - AUTOMATED METHOD 03/03/2025 8:06 AM EDT [facility] Urine Urine specimen obtained by clean catch procedure / Unknown Non-blood Collection / Unknown 03/03/2025 7:59 AM EDT 03/03/2025 8:03 AM EDT us Jose Salinas MD LAB URINE ORDERABLES Final R esult [facility] [address] [place] [address] * MR Lumbar Spine wo IV Contrast (03/03/2025 3:39 AM EDT) Anatomical Region Laterality Modality L-spine Magnetic Resonan ce Impressions 03/03/2025 5:36 AM EDT * Fluid signal in the C4-C5 level with potential discontinuity of the posterior longitudinal ligament which could reflect a fracture through the posterior aspect of the disc or an artifact. Correlation with mechanism of injury should be considered. * Nondisplaced fracture of the T11 vertebral body involving the anterior aspect of the inferior endplate and extending into the T11-T12 intervertebral disc. * No evidence of fracture or traumatic malalignment in the lumbar spine area * No high-grade spinal canal or neuroforaminal narrowing in the cervical, thoracic, or lumbar spine. Severe neuroforaminal narrowing in the cervical and lumbar spine, as described. RECOMMENDATION: Cervical spine CT. CRITICAL RESULT: No. COMMUNICATION: Per this written report. Drafted by Bradley Clemente MD on 03/03/2025 5:02 AM Final report signed by Bradley Clemente MD on 03/03/2025 5:36 AM Narrative 03/03/2025 5:36 AM EDT CLINICAL INDICATION: Neck trauma, ligament injury suspected (Age >= 16y) TECHNIQUE: Multiplanar multiecho sequences were obtained through the cervical spine utilizing T1 and T2 weighting without the administration of intravenous contrast. 12 series were obtained including localizer series. Multiplanar multiecho sequences were obtained through the thoracic spine utilizing T1 and T2 weighting without the administration of intravenous contrast. 11 series were obtained including localizer series. Multiplanar multiecho sequences were obtained through the lumbar spine utilizing T1 and T2 weighting without the administration of intravenous contrast. 9 series were obtained including localizer series. COMPARISON: Outside thoracic and lumbar spine 03/02/2025 FINDINGS: Cervical Spine: Diagnostic Quality: Adequate. Alignment: There is mild straightening of the typical cervical lordosis which may be secondary to position or muscle spasm. Marrow: The marrow signal is normal. Vertebrae and Intervertebral Discs: Fluid signal in the central and posterior aspects of the C4-C5 disc. The vertebral body heights are within expected limits. The intervertebral disc space heights are within expected limits. The remaining intervertebral discs demonstrate expected intrinsic T2 hyperintensity. Ligaments: Possible discontinuity of the posterior longitudinal ligament at the C4-C5 level. Otherwise, the anterior and posterior longitudinal ligaments and interspinous ligaments are intact. Spinal Cord: The spinal cord is of normal caliber without abnormal intrinsic signal. Degenerative changes are as follows: C2-3: Unremarkable disc without significant spinal canal or neural foraminal narrowing. C3-4: Uncovertebral hypertrophy with bilateral facet arthropathy and ligamentum flavum thickening. There is near complete effacement of the dorsal and ventral thecal sac. Severe bilateral neuroforaminal narrowing. C4-5: Uncovertebral hypertrophy and facet arthropathy. Effacement of the ventral thecal sac. Mild right neuroforaminal narrowing. The left neuroforamen is widely patent. C5-6: Bilateral uncovertebral hypertrophy with minimal ligamentum flavum thickening. Effacement of the ventral thecal sac. The neuroforamina are widely patent. C6-7: Disc osteophyte complex and bilateral uncovertebral hypertrophy and ligamentum flavum thickening. Effacement of the dorsal and ventral thecal sac with slight indentation of the cord. The right neuroforamen is widely patent. Severe left neuroforaminal narrowing. C7-T1: Unremarkable disc without significant spinal canal or neural foraminal narrowing. Prevertebral and Paraspinal Soft Tissues: There is no prevertebral or paraspinal soft tissue swelling or mass. Other Findings: None. Thoracic Spine: Diagnostic Quality: Adequate. Alignment: The bony alignment is normal. Marrow: Edema in the T11 vertebral body. Vertebrae and Intervertebral Discs: Nondisplaced fracture through the anterior aspect of the inferior endplate of T11 with extension through the intervertebral disc. The vertebral body heights are within expected limits. The intervertebral disc space heights are within expected limits. The intervertebral discs demonstrate expected intrinsic T2 hyperintensity. Ligaments: The anterior and posterior longitudinal ligaments and interspinous ligaments are intact. Spinal Cord: The spinal cord is of normal caliber without abnormal intrinsic signal. Degenerative changes are present at the following levels: Multilevel disc bulges, herniations, facet arthropathy, and ligamentum flavum thickening without evidence of high-grade spinal canal or neuroforaminal narrowing. Prevertebral and Paraspinal Soft Tissues: There is no prevertebral or paraspinal soft tissue swelling or mass. Other Findings: None. Lumbar Spine: Diagnostic Quality: Adequate. Postsurgical changes related to L3-L4 laminectomies with posterior fusion of L1- S1. Susceptibility artifact from hardware limits assessment of nearby structures. Anatomic Variants: None. Alignment: Rotolevocurvature which is of the lumbar spine. Marrow: The marrow signal is normal. Vertebrae and Intervertebral Discs: Vertebral body and disc space heights are normal. The intervertebral discs are well hydrated. Ligaments: The anterior and posterior longitudinal ligaments and interspinous ligaments are intact. Conus: The conus is of normal caliber without abnormal intrinsic signal. The conus terminates at the L1 level. Degenerative changes are as follows: T12-L1: Disc bulge with bilateral facet arthropathy. The spinal canal is widely patent. The neural foramina are widely patent. L1-L2: Unremarkable disc without significant spinal canal or neural foraminal narrowing. L2-L3: Unremarkable disc without significant spinal canal or neural foraminal narrowing. L3-L4: Posterior decompression. No significant spinal canal narrowing. The right neuroforamina is patent. Severe left neuroforaminal narrowing. L4-L5: Posterior decompression. No significant spinal canal narrowing. The neural foramina are widely patent. L5-S1: Diffuse disc bulge with central disc extrusion and facet arthropathy. The spinal canal is widely patent. Severe bilateral neuroforaminal narrowing. Prevertebral and Paraspinal Soft Tissues: There is no prevertebral or paraspinal soft tissue swelling or mass. Other Findings: None. Procedure Note Bradley Clemente MD - 03/03/2025 CLINICAL INDICATION: Neck trauma, ligament injury suspected (Age >= 16y) TECHNIQUE: Multiplanar multiecho sequences were obtained through the cervical spineutilizing T1 and T2 weighting without the administration of intravenouscontrast. 12 series were obtained including localizer series. Multiplanar multiecho sequences were obtained through the thoracic spineutilizing T1 and T2 weighting without the administration of intravenouscontrast. 11 series were obtained including localizer series. Multiplanar multiecho sequences were obtained through the lumbar spineutilizing T1 and T2 weighting without the administration of intravenouscontrast. 9 series were obtained including localizer series. COMPARISON: Outside thoracic and lumbar spine 03/02/2025 FINDINGS: Cervical Spine: Diagnostic Quality: Adequate. Alignment: There is mild straightening of the typical cervical lordosiswhich may be secondary to position or muscle spasm. Marrow: The marrow signal is normal. Vertebrae and Intervertebral Discs: Fluid signal in the central andposterior aspects of the C4-C5 disc. The vertebral body heights are within expected limits. The intervertebraldisc space heights are within expected limits. The remainingintervertebral discs demonstrate expected intrinsic T2 hyperintensity. Ligaments: Possible discontinuity of the posterior longitudinal ligamentat the C4-C5 level. Otherwise, the anterior and posterior longitudinal ligaments andinterspinous ligaments are intact. Spinal Cord: The spinal cord is of normal caliber without abnormalintrinsic signal. Degenerative changes are as follows: C2-3: Unremarkable disc without significant spinal canal or neuralforaminal narrowing. C3-4: Uncovertebral hypertrophy with bilateral facet arthropathy andligamentum flavum thickening. There is near complete effacement of thedorsal and ventral thecal sac. Severe bilateral neuroforaminalnarrowing. C4-5: Uncovertebral hypertrophy and facet arthropathy. Effacement of theventral thecal sac. Mild right neuroforaminal narrowing. The leftneuroforamen is widely patent. C5-6: Bilateral uncovertebral hypertrophy with minimal ligamentum flavumthickening. Effacement of the ventral thecal sac. The neuroforamina arewidely patent. C6-7: Disc osteophyte complex and bilateral uncovertebral hypertrophy andligamentum flavum thickening. Effacement of the dorsal and ventral thecalsac with slight indentation of the cord. The right neuroforamen is widelypatent. Severe left neuroforaminal narrowing. C7-T1: Unremarkable disc without significant spinal canal or neuralforaminal narrowing. Prevertebral and Paraspinal Soft Tissues: There is no prevertebral orparaspinal soft tissue swelling or mass. Other Findings: None. Thoracic Spine: Diagnostic Quality: Adequate. Alignment: The bony alignment is normal. Marrow: Edema in the T11 vertebral body. Vertebrae and Intervertebral Discs: Nondisplaced fracture through theanterior aspect of the inferior endplate of T11 with extension through theintervertebral disc. The vertebral body heights are within expected limits. The intervertebraldisc space heights are within expected limits. The intervertebral discsdemonstrate expected intrinsic T2 hyperintensity. Ligaments: The anterior and posterior longitudinal ligaments andinterspinous ligaments are intact. Spinal Cord: The spinal cord is of normal caliber without abnormalintrinsic signal. Degenerative changes are present at the following levels: Multilevel discbulges, herniations, facet arthropathy, and ligamentum flavum thickeningwithout evidence of high-grade spinal canal or neuroforaminal narrowing. Prevertebral and Paraspinal Soft Tissues: There is no prevertebral orparaspinal soft tissue swelling or mass. Other Findings: None. Lumbar Spine: Diagnostic Quality: Adequate. Postsurgical changes related to L3-L4 laminectomies with posterior fusionof L1- S1. Susceptibility artifact from hardware limits assessment ofnearby structures. Anatomic Variants: None. Alignment: Rotolevocurvature which is of the lumbar spine. Marrow: The marrow signal is normal. Vertebrae and Intervertebral Discs: Vertebral body and disc space heightsare normal. The intervertebral discs are well hydrated. Ligaments: The anterior and posterior longitudinal ligaments andinterspinous ligaments are intact. Conus: The conus is of normal caliber without abnormal intrinsic signal.The conus terminates at the L1 level. Degenerative changes are as follows: T12-L1: Disc bulge with bilateral facet arthropathy. The spinal canal iswidely patent. The neural foramina are widely patent. L1-L2: Unremarkable disc without significant spinal canal or neuralforaminal narrowing. L2-L3: Unremarkable disc without significant spinal canal or neuralforaminal narrowing. L3-L4: Posterior decompression. No significant spinal canal narrowing. Theright neuroforamina is patent. Severe left neuroforaminal narrowing. L4-L5: Posterior decompression. No significant spinal canal narrowing. Theneural foramina are widely patent. L5-S1: Diffuse disc bulge with central disc extrusion and facetarthropathy. The spinal canal is widely patent. Severe bilateralneuroforaminal narrowing. Prevertebral and Paraspinal Soft Tissues: There is no prevertebral orparaspinal soft tissue swelling or mass. Other Findings: None. IMPRESSION: *Fluid signal in the C4-C5 level with potential discontinuity of theposterior longitudinal ligament which could reflect a fracture through theposterior aspect of the disc or an artifact. Correlation with mechanism ofinjury should be considered. *Nondisplaced fracture of the T11 vertebral body involving the anterioraspect of the inferior endplate and extending into the [id number] disc. *No evidence of fracture or traumatic malalignment in the lumbar spinearea *No high-grade spinal canal or neuroforaminal narrowing in the cervical,thoracic, or lumbar spine. Severe neuroforaminal narrowing in the cervicaland lumbar spine, as described. RECOMMENDATION: Cervical spine CT. CRITICAL RESULT: No. COMMUNICATION: Per this written report. Drafted by Bradley Clemente MD on 03/03/2025 5:02 AM Final report signed by Bradley Clemente MD on 03/03/2025 5:36 AM us Jose Salinas MD IMG MRI PROCEDURES Final Res ult * MR Thoracic Spine wo IV Contrast (03/03/2025 3:39 AM EDT) Anatomical Region Laterality Modality T-spine Magnetic Resonan ce Impressions 03/03/2025 5:36 AM EDT * Fluid signal in the C4-C5 level with potential discontinuity of the posterior longitudinal ligament which could reflect a fracture through the posterior aspect of the disc or an artifact. Correlation with mechanism of injury should be considered. * Nondisplaced fracture of the T11 vertebral body involving the anterior aspect of the inferior endplate and extending into the T11-T12 intervertebral disc. * No evidence of fracture or traumatic malalignment in the lumbar spine area * No high-grade spinal canal or neuroforaminal narrowing in the cervical, thoracic, or lumbar spine. Severe neuroforaminal narrowing in the cervical and lumbar spine, as described. RECOMMENDATION: Cervical spine CT. CRITICAL RESULT: No. COMMUNICATION: Per this written report. Drafted by Bradley Clemente MD on 03/03/2025 5:02 AM Final report signed by Bradley Clemente MD on 03/03/2025 5:36 AM Narrative 03/03/2025 5:36 AM EDT CLINICAL INDICATION: Neck trauma, ligament injury suspected (Age >= 16y) TECHNIQUE: Multiplanar multiecho sequences were obtained through the cervical spine utilizing T1 and T2 weighting without the administration of intravenous contrast. 12 series were obtained including localizer series. Multiplanar multiecho sequences were obtained through the thoracic spine utilizing T1 and T2 weighting without the administration of intravenous contrast. 11 series were obtained including localizer series. Multiplanar multiecho sequences were obtained through the lumbar spine utilizing T1 and T2 weighting without the administration of intravenous contrast. 9 series were obtained including localizer series. COMPARISON: Outside thoracic and lumbar spine 03/02/2025 FINDINGS: Cervical Spine: Diagnostic Quality: Adequate. Alignment: There is mild straightening of the typical cervical lordosis which may be secondary to position or muscle spasm. Marrow: The marrow signal is normal. Vertebrae and Intervertebral Discs: Fluid signal in the central and posterior aspects of the C4-C5 disc. The vertebral body heights are within expected limits. The intervertebral disc space heights are within expected limits. The remaining intervertebral discs demonstrate expected intrinsic T2 hyperintensity. Ligaments: Possible discontinuity of the posterior longitudinal ligament at the C4-C5 level. Otherwise, the anterior and posterior longitudinal ligaments and interspinous ligaments are intact. Spinal Cord: The spinal cord is of normal caliber without abnormal intrinsic signal. Degenerative changes are as follows: C2-3: Unremarkable disc without significant spinal canal or neural foraminal narrowing. C3-4: Uncovertebral hypertrophy with bilateral facet arthropathy and ligamentum flavum thickening. There is near complete effacement of the dorsal and ventral thecal sac. Severe bilateral neuroforaminal narrowing. C4-5: Uncovertebral hypertrophy and facet arthropathy. Effacement of the ventral thecal sac. Mild right neuroforaminal narrowing. The left neuroforamen is widely patent. C5-6: Bilateral uncovertebral hypertrophy with minimal ligamentum flavum thickening. Effacement of the ventral thecal sac. The neuroforamina are widely patent. C6-7: Disc osteophyte complex and bilateral uncovertebral hypertrophy and ligamentum flavum thickening. Effacement of the dorsal and ventral thecal sac with slight indentation of the cord. The right neuroforamen is widely patent. Severe left neuroforaminal narrowing. C7-T1: Unremarkable disc without significant spinal canal or neural foraminal narrowing. Prevertebral and Paraspinal Soft Tissues: There is no prevertebral or paraspinal soft tissue swelling or mass. Other Findings: None. Thoracic Spine: Diagnostic Quality: Adequate. Alignment: The bony alignment is normal. Marrow: Edema in the T11 vertebral body. Vertebrae and Intervertebral Discs: Nondisplaced fracture through the anterior aspect of the inferior endplate of T11 with extension through the intervertebral disc. The vertebral body heights are within expected limits. The intervertebral disc space heights are within expected limits. The intervertebral discs demonstrate expected intrinsic T2 hyperintensity. Ligaments: The anterior and posterior longitudinal ligaments and interspinous ligaments are intact. Spinal Cord: The spinal cord is of normal caliber without abnormal intrinsic signal. Degenerative changes are present at the following levels: Multilevel disc bulges, herniations, facet arthropathy, and ligamentum flavum thickening without evidence of high-grade spinal canal or neuroforaminal narrowing. Prevertebral and Paraspinal Soft Tissues: There is no prevertebral or paraspinal soft tissue swelling or mass. Other Findings: None. Lumbar Spine: Diagnostic Quality: Adequate. Postsurgical changes related to L3-L4 laminectomies with posterior fusion of L1- S1. Susceptibility artifact from hardware limits assessment of nearby structures. Anatomic Variants: None. Alignment: Rotolevocurvature which is of the lumbar spine. Marrow: The marrow signal is normal. Vertebrae and Intervertebral Discs: Vertebral body and disc space heights are normal. The intervertebral discs are well hydrated. Ligaments: The anterior and posterior longitudinal ligaments and interspinous ligaments are intact. Conus: The conus is of normal caliber without abnormal intrinsic signal. The conus terminates at the L1 level. Degenerative changes are as follows: T12-L1: Disc bulge with bilateral facet arthropathy. The spinal canal is widely patent. The neural foramina are widely patent. L1-L2: Unremarkable disc without significant spinal canal or neural foraminal narrowing. L2-L3: Unremarkable disc without significant spinal canal or neural foraminal narrowing. L3-L4: Posterior decompression. No significant spinal canal narrowing. The right neuroforamina is patent. Severe left neuroforaminal narrowing. L4-L5: Posterior decompression. No significant spinal canal narrowing. The neural foramina are widely patent. L5-S1: Diffuse disc bulge with central disc extrusion and facet arthropathy. The spinal canal is widely patent. Severe bilateral neuroforaminal narrowing. Prevertebral and Paraspinal Soft Tissues: There is no prevertebral or paraspinal soft tissue swelling or mass. Other Findings: None. Procedure Note Bradley Clemente MD - 03/03/2025 CLINICAL INDICATION: Neck trauma, ligament injury suspected (Age >= 16y) TECHNIQUE: Multiplanar multiecho sequences were obtained through the cervical spineutilizing T1 and T2 weighting without the administration of intravenouscontrast. 12 series were obtained including localizer series. Multiplanar multiecho sequences were obtained through the thoracic spineutilizing T1 and T2 weighting without the administration of intravenouscontrast. 11 series were obtained including localizer series. Multiplanar multiecho sequences were obtained through the lumbar spineutilizing T1 and T2 weighting without the administration of intravenouscontrast. 9 series were obtained including localizer series. COMPARISON: Outside thoracic and lumbar spine 03/02/2025 FINDINGS: Cervical Spine: Diagnostic Quality: Adequate. Alignment: There is mild straightening of the typical cervical lordosiswhich may be secondary to position or muscle spasm. Marrow: The marrow signal is normal. Vertebrae and Intervertebral Discs: Fluid signal in the central andposterior aspects of the C4-C5 disc. The vertebral body heights are within expected limits. The intervertebraldisc space heights are within expected limits. The remainingintervertebral discs demonstrate expected intrinsic T2 hyperintensity. Ligaments: Possible discontinuity of the posterior longitudinal ligamentat the C4-C5 level. Otherwise, the anterior and posterior longitudinal ligaments andinterspinous ligaments are intact. Spinal Cord: The spinal cord is of normal caliber without abnormalintrinsic signal. Degenerative changes are as follows: C2-3: Unremarkable disc without significant spinal canal or neuralforaminal narrowing. C3-4: Uncovertebral hypertrophy with bilateral facet arthropathy andligamentum flavum thickening. There is near complete effacement of thedorsal and ventral thecal sac. Severe bilateral neuroforaminalnarrowing. C4-5: Uncovertebral hypertrophy and facet arthropathy. Effacement of theventral thecal sac. Mild right neuroforaminal narrowing. The leftneuroforamen is widely patent. C5-6: Bilateral uncovertebral hypertrophy with minimal ligamentum flavumthickening. Effacement of the ventral thecal sac. The neuroforamina arewidely patent. C6-7: Disc osteophyte complex and bilateral uncovertebral hypertrophy andligamentum flavum thickening. Effacement of the dorsal and ventral thecalsac with slight indentation of the cord. The right neuroforamen is widelypatent. Severe left neuroforaminal narrowing. C7-T1: Unremarkable disc without significant spinal canal or neuralforaminal narrowing. Prevertebral and Paraspinal Soft Tissues: There is no prevertebral orparaspinal soft tissue swelling or mass. Other Findings: None. Thoracic Spine: Diagnostic Quality: Adequate. Alignment: The bony alignment is normal. Marrow: Edema in the T11 vertebral body. Vertebrae and Intervertebral Discs: Nondisplaced fracture through theanterior aspect of the inferior endplate of T11 with extension through theintervertebral disc. The vertebral body heights are within expected limits. The intervertebraldisc space heights are within expected limits. The intervertebral discsdemonstrate expected intrinsic T2 hyperintensity. Ligaments: The anterior and posterior longitudinal ligaments andinterspinous ligaments are intact. Spinal Cord: The spinal cord is of normal caliber without abnormalintrinsic signal. Degenerative changes are present at the following levels: Multilevel discbulges, herniations, facet arthropathy, and ligamentum flavum thickeningwithout evidence of high-grade spinal canal or neuroforaminal narrowing. Prevertebral and Paraspinal Soft Tissues: There is no prevertebral orparaspinal soft tissue swelling or mass. Other Findings: None. Lumbar Spine: Diagnostic Quality: Adequate. Postsurgical changes related to L3-L4 laminectomies with posterior fusionof L1- S1. Susceptibility artifact from hardware limits assessment ofnearby structures. Anatomic Variants: None. Alignment: Rotolevocurvature which is of the lumbar spine. Marrow: The marrow signal is normal. Vertebrae and Intervertebral Discs: Vertebral body and disc space heightsare normal. The intervertebral discs are well hydrated. Ligaments: The anterior and posterior longitudinal ligaments andinterspinous ligaments are intact. Conus: The conus is of normal caliber without abnormal intrinsic signal.The conus terminates at the L1 level. Degenerative changes are as follows: T12-L1: Disc bulge with bilateral facet arthropathy. The spinal canal iswidely patent. The neural foramina are widely patent. L1-L2: Unremarkable disc without significant spinal canal or neuralforaminal narrowing. L2-L3: Unremarkable disc without significant spinal canal or neuralforaminal narrowing. L3-L4: Posterior decompression. No significant spinal canal narrowing. Theright neuroforamina is patent. Severe left neuroforaminal narrowing. L4-L5: Posterior decompression. No significant spinal canal narrowing. Theneural foramina are widely patent. L5-S1: Diffuse disc bulge with central disc extrusion and facetarthropathy. The spinal canal is widely patent. Severe bilateralneuroforaminal narrowing. Prevertebral and Paraspinal Soft Tissues: There is no prevertebral orparaspinal soft tissue swelling or mass. Other Findings: None. IMPRESSION: *Fluid signal in the C4-C5 level with potential discontinuity of theposterior longitudinal ligament which could reflect a fracture through theposterior aspect of the disc or an artifact. Correlation with mechanism ofinjury should be considered. *Nondisplaced fracture of the T11 vertebral body involving the anterioraspect of the inferior endplate and extending into the [id number] disc. *No evidence of fracture or traumatic malalignment in the lumbar spinearea *No high-grade spinal canal or neuroforaminal narrowing in the cervical,thoracic, or lumbar spine. Severe neuroforaminal narrowing in the cervicaland lumbar spine, as described. RECOMMENDATION: Cervical spine CT. CRITICAL RESULT: No. COMMUNICATION: Per this written report. Drafted by Bradley Clemente MD on 03/03/2025 5:02 AM Final report signed by Bradley Clemente MD on 03/03/2025 5:36 AM Jose Salinas MD IMG MRI PROCEDURES Final Res ult * MR Cervical Spine wo IV Contrast (03/03/2025 3:39 AM EDT) Anatomical Region Laterality Modality C-spine Magnetic Resonan ce Impressions 03/03/2025 5:36 AM EDT * Fluid signal in the C4-C5 level with potential discontinuity of the posterior longitudinal ligament which could reflect a fracture through the posterior aspect of the disc or an artifact. Correlation with mechanism of injury should be considered. * Nondisplaced fracture of the T11 vertebral body involving the anterior aspect of the inferior endplate and extending into the T11-T12 intervertebral disc. * No evidence of fracture or traumatic malalignment in the lumbar spine area * No high-grade spinal canal or neuroforaminal narrowing in the cervical, thoracic, or lumbar spine. Severe neuroforaminal narrowing in the cervical and lumbar spine, as described. RECOMMENDATION: Cervical spine CT. CRITICAL RESULT: No. COMMUNICATION: Per this written report. Drafted by Bradley Clemente MD on 03/03/2025 5:02 AM Final report signed by Bradley Clemente MD on 03/03/2025 5:36 AM Narrative 03/03/2025 5:36 AM EDT CLINICAL INDICATION: Neck trauma, ligament injury suspected (Age >= 16y) TECHNIQUE: Multiplanar multiecho sequences were obtained through the cervical spine utilizing T1 and T2 weighting without the administration of intravenous contrast. 12 series were obtained including localizer series. Multiplanar multiecho sequences were obtained through the thoracic spine utilizing T1 and T2 weighting without the administration of intravenous contrast. 11 series were obtained including localizer series. Multiplanar multiecho sequences were obtained through the lumbar spine utilizing T1 and T2 weighting without the administration of intravenous contrast. 9 series were obtained including localizer series. COMPARISON: Outside thoracic and lumbar spine 03/02/2025 FINDINGS: Cervical Spine: Diagnostic Quality: Adequate. Alignment: There is mild straightening of the typical cervical lordosis which may be secondary to position or muscle spasm. Marrow: The marrow signal is normal. Vertebrae and Intervertebral Discs: Fluid signal in the central and posterior aspects of the C4-C5 disc. The vertebral body heights are within expected limits. The intervertebral disc space heights are within expected limits. The remaining intervertebral discs demonstrate expected intrinsic T2 hyperintensity. Ligaments: Possible discontinuity of the posterior longitudinal ligament at the C4-C5 level. Otherwise, the anterior and posterior longitudinal ligaments and interspinous ligaments are intact. Spinal Cord: The spinal cord is of normal caliber without abnormal intrinsic signal. Degenerative changes are as follows: C2-3: Unremarkable disc without significant spinal canal or neural foraminal narrowing. C3-4: Uncovertebral hypertrophy with bilateral facet arthropathy and ligamentum flavum thickening. There is near complete effacement of the dorsal and ventral thecal sac. Severe bilateral neuroforaminal narrowing. C4-5: Uncovertebral hypertrophy and facet arthropathy. Effacement of the ventral thecal sac. Mild right neuroforaminal narrowing. The left neuroforamen is widely patent. C5-6: Bilateral uncovertebral hypertrophy with minimal ligamentum flavum thickening. Effacement of the ventral thecal sac. The neuroforamina are widely patent. C6-7: Disc osteophyte complex and bilateral uncovertebral hypertrophy and ligamentum flavum thickening. Effacement of the dorsal and ventral thecal sac with slight indentation of the cord. The right neuroforamen is widely patent. Severe left neuroforaminal narrowing. C7-T1: Unremarkable disc without significant spinal canal or neural foraminal narrowing. Prevertebral and Paraspinal Soft Tissues: There is no prevertebral or paraspinal soft tissue swelling or mass. Other Findings: None. Thoracic Spine: Diagnostic Quality: Adequate. Alignment: The bony alignment is normal. Marrow: Edema in the T11 vertebral body. Vertebrae and Intervertebral Discs: Nondisplaced fracture through the anterior aspect of the inferior endplate of T11 with extension through the intervertebral disc. The vertebral body heights are within expected limits. The intervertebral disc space heights are within expected limits. The intervertebral discs demonstrate expected intrinsic T2 hyperintensity. Ligaments: The anterior and posterior longitudinal ligaments and interspinous ligaments are intact. Spinal Cord: The spinal cord is of normal caliber without abnormal intrinsic signal. Degenerative changes are present at the following levels: Multilevel disc bulges, herniations, facet arthropathy, and ligamentum flavum thickening without evidence of high-grade spinal canal or neuroforaminal narrowing. Prevertebral and Paraspinal Soft Tissues: There is no prevertebral or paraspinal soft tissue swelling or mass. Other Findings: None. Lumbar Spine: Diagnostic Quality: Adequate. Postsurgical changes related to L3-L4 laminectomies with posterior fusion of L1- S1. Susceptibility artifact from hardware limits assessment of nearby structures. Anatomic Variants: None. Alignment: Rotolevocurvature which is of the lumbar spine. Marrow: The marrow signal is normal. Vertebrae and Intervertebral Discs: Vertebral body and disc space heights are normal. The intervertebral discs are well hydrated. Ligaments: The anterior and posterior longitudinal ligaments and interspinous ligaments are intact. Conus: The conus is of normal caliber without abnormal intrinsic signal. The conus terminates at the L1 level. Degenerative changes are as follows: T12-L1: Disc bulge with bilateral facet arthropathy. The spinal canal is widely patent. The neural foramina are widely patent. L1-L2: Unremarkable disc without significant spinal canal or neural foraminal narrowing. L2-L3: Unremarkable disc without significant spinal canal or neural foraminal narrowing. L3-L4: Posterior decompression. No significant spinal canal narrowing. The right neuroforamina is patent. Severe left neuroforaminal narrowing. L4-L5: Posterior decompression. No significant spinal canal narrowing. The neural foramina are widely patent. L5-S1: Diffuse disc bulge with central disc extrusion and facet arthropathy. The spinal canal is widely patent. Severe bilateral neuroforaminal narrowing. Prevertebral and Paraspinal Soft Tissues: There is no prevertebral or paraspinal soft tissue swelling or mass. Other Findings: None. Procedure Note Bradley Clemente MD - 03/03/2025 CLINICAL INDICATION: Neck trauma, ligament injury suspected (Age >= 16y) TECHNIQUE: Multiplanar multiecho sequences were obtained through the cervical spineutilizing T1 and T2 weighting without the administration of intravenouscontrast. 12 series were obtained including localizer series. Multiplanar multiecho sequences were obtained through the thoracic spineutilizing T1 and T2 weighting without the administration of intravenouscontrast. 11 series were obtained including localizer series. Multiplanar multiecho sequences were obtained through the lumbar spineutilizing T1 and T2 weighting without the administration of intravenouscontrast. 9 series were obtained including localizer series. COMPARISON: Outside thoracic and lumbar spine 03/02/2025 FINDINGS: Cervical Spine: Diagnostic Quality: Adequate. Alignment: There is mild straightening of the typical cervical lordosiswhich may be secondary to position or muscle spasm. Marrow: The marrow signal is normal. Vertebrae and Intervertebral Discs: Fluid signal in the central andposterior aspects of the C4-C5 disc. The vertebral body heights are within expected limits. The intervertebraldisc space heights are within expected limits. The remainingintervertebral discs demonstrate expected intrinsic T2 hyperintensity. Ligaments: Possible discontinuity of the posterior longitudinal ligamentat the C4-C5 level. Otherwise, the anterior and posterior longitudinal ligaments andinterspinous ligaments are intact. Spinal Cord: The spinal cord is of normal caliber without abnormalintrinsic signal. Degenerative changes are as follows: C2-3: Unremarkable disc without significant spinal canal or neuralforaminal narrowing. C3-4: Uncovertebral hypertrophy with bilateral facet arthropathy andligamentum flavum thickening. There is near complete effacement of thedorsal and ventral thecal sac. Severe bilateral neuroforaminalnarrowing. C4-5: Uncovertebral hypertrophy and facet arthropathy. Effacement of theventral thecal sac. Mild right neuroforaminal narrowing. The leftneuroforamen is widely patent. C5-6: Bilateral uncovertebral hypertrophy with minimal ligamentum flavumthickening. Effacement of the ventral thecal sac. The neuroforamina arewidely patent. C6-7: Disc osteophyte complex and bilateral uncovertebral hypertrophy andligamentum flavum thickening. Effacement of the dorsal and ventral thecalsac with slight indentation of the cord. The right neuroforamen is widelypatent. Severe left neuroforaminal narrowing. C7-T1: Unremarkable disc without significant spinal canal or neuralforaminal narrowing. Prevertebral and Paraspinal Soft Tissues: There is no prevertebral orparaspinal soft tissue swelling or mass. Other Findings: None. Thoracic Spine: Diagnostic Quality: Adequate. Alignment: The bony alignment is normal. Marrow: Edema in the T11 vertebral body. Vertebrae and Intervertebral Discs: Nondisplaced fracture through theanterior aspect of the inferior endplate of T11 with extension through theintervertebral disc. The vertebral body heights are within expected limits. The intervertebraldisc space heights are within expected limits. The intervertebral discsdemonstrate expected intrinsic T2 hyperintensity. Ligaments: The anterior and posterior longitudinal ligaments andinterspinous ligaments are intact. Spinal Cord: The spinal cord is of normal caliber without abnormalintrinsic signal. Degenerative changes are present at the following levels: Multilevel discbulges, herniations, facet arthropathy, and ligamentum flavum thickeningwithout evidence of high-grade spinal canal or neuroforaminal narrowing. Prevertebral and Paraspinal Soft Tissues: There is no prevertebral orparaspinal soft tissue swelling or mass. Other Findings: None. Lumbar Spine: Diagnostic Quality: Adequate. Postsurgical changes related to L3-L4 laminectomies with posterior fusionof L1- S1. Susceptibility artifact from hardware limits assessment ofnearby structures. Anatomic Variants: None. Alignment: Rotolevocurvature which is of the lumbar spine. Marrow: The marrow signal is normal. Vertebrae and Intervertebral Discs: Vertebral body and disc space heightsare normal. The intervertebral discs are well hydrated. Ligaments: The anterior and posterior longitudinal ligaments andinterspinous ligaments are intact. Conus: The conus is of normal caliber without abnormal intrinsic signal.The conus terminates at the L1 level. Degenerative changes are as follows: T12-L1: Disc bulge with bilateral facet arthropathy. The spinal canal iswidely patent. The neural foramina are widely patent. L1-L2: Unremarkable disc without significant spinal canal or neuralforaminal narrowing. L2-L3: Unremarkable disc without significant spinal canal or neuralforaminal narrowing. L3-L4: Posterior decompression. No significant spinal canal narrowing. Theright neuroforamina is patent. Severe left neuroforaminal narrowing. L4-L5: Posterior decompression. No significant spinal canal narrowing. Theneural foramina are widely patent. L5-S1: Diffuse disc bulge with central disc extrusion and facetarthropathy. The spinal canal is widely patent. Severe bilateralneuroforaminal narrowing. Prevertebral and Paraspinal Soft Tissues: There is no prevertebral orparaspinal soft tissue swelling or mass. Other Findings: None. IMPRESSION: *Fluid signal in the C4-C5 level with potential discontinuity of theposterior longitudinal ligament which could reflect a fracture through theposterior aspect of the disc or an artifact. Correlation with mechanism ofinjury should be considered. *Nondisplaced fracture of the T11 vertebral body involving the anterioraspect of the inferior endplate and extending into the N19-[id number] disc. *No evidence of fracture or traumatic malalignment in the lumbar spinearea *No high-grade spinal canal or neuroforaminal narrowing in the cervical,thoracic, or lumbar spine. Severe neuroforaminal narrowing in the cervicaland lumbar spine, as described. RECOMMENDATION: Cervical spine CT. CRITICAL RESULT: No. COMMUNICATION: Per this written report. Drafted by Bradley Clemente MD on 03/03/2025 5:02 AM Final report signed by Bradley Clemente MD on 03/03/2025 5:36 AM us Jose Salinas MD IMG MRI PROCEDURES Final Res ult * XR Eye Foreign Body (03/02/2025 8:01 PM EDT) Anatomical Region Laterality Modality Eye Digital Radiogra phy Impressions 03/02/2025 8:31 PM EDT There are no metallic foreign bodies within, or in close proximity to, either orbit. CRITICAL RESULT: No. COMMUNICATION: Per this written report. Drafted by Bradley Clemente MD on 03/02/2025 8:30 PM Final report signed by Bradley Clemetne MD on 03/02/2025 8:31 PM Narrative 03/02/2025 8:31 PM EDT CLINICAL INDICATION: Evaluate orbits for metallic foreign bodies prior to MR scan. TECHNIQUE: 2 views of the orbits were obtained. COMPARISON: None. FINDINGS: There are no metallic foreign bodies within, or in close proximity to, either orbit. Surgical clip in the soft tissues of the right scalp overlying the right temporal bone. Procedure Note Bradley Clemente MD - 03/02/2025 CLINICAL INDICATION: Evaluate orbits for metallic foreign bodies prior to MR scan. TECHNIQUE: 2 views of the orbits were obtained. COMPARISON: None. FINDINGS: There are no metallic foreign bodies within, or in close proximity to,either orbit. Surgical clip in the soft tissues of the right scalp overlying the righttemporal bone. IMPRESSION: There are no metallic foreign bodies within, or in close proximity to,either orbit. CRITICAL RESULT: No. COMMUNICATION: Per this written report. Drafted by Bradley Clemente MD on 03/02/2025 8:30 PM Final report signed by Bradley Clemente MD on 03/02/2025 8:31 PM Jose Salinas MD IMG XR PROCEDURES Final Resu lt * XR Abdomen 1 View (03/02/2025 8:01 PM EDT) Anatomical Region Laterality Modality Body Digital Radiogra phy Impressions 03/02/2025 8:37 PM EDT Degenerative and posttreatment changes without acute abnormality identified. CRITICAL RESULT: No. COMMUNICATION: Per this written report. Drafted by Virgil Albrecht MD on 03/02/2025 8:36 PM Final report signed by Virgil Albrecht MD on 03/02/2025 8:37 PM Narrative 03/02/2025 8:37 PM EDT CLINICAL INDICATION: Pain. TECHNIQUE: XR CHEST 1 VIEW, XR ABDOMEN 1 VIEW COMPARISON: None. FINDINGS: Severe left greater than right glenohumeral joint osteoarthritis. No fracture, subluxation, or dislocation. Posterior lumbar spine fusion construct has lucency around the sacral screws. Moderate thoracic spine discogenic disease with osteophytosis. No pleural effusion or pneumothorax. Cardiomediastinal silhouette is normal. Lungs are clear. Bowel gas pattern is normal. No renal collecting system stone is seen on the right. Possible 8mm left-sided renal collecting system stone. Moderate right and mild to moderate left hip osteoarthritis. Procedure Note Virgil Albrecht MD - 03/02/2025 CLINICAL INDICATION: Pain. TECHNIQUE: XR CHEST 1 VIEW, XR ABDOMEN 1 VIEW COMPARISON: None. FINDINGS: Severe left greater than right glenohumeral joint osteoarthritis. Nofracture, subluxation, or dislocation. Posterior lumbar spine fusionconstruct has lucency around the sacral screws. Moderate thoracic spinediscogenic disease with osteophytosis. No pleural effusion orpneumothorax. Cardiomediastinal silhouette is normal. Lungs are clear.Bowel gas pattern is normal. No renal collecting system stone is seen onthe right. Possible 8mm left-sided renal collecting system stone. Moderateright and mild to moderate left hip osteoarthritis. IMPRESSION: Degenerative and posttreatment changes without acute abnormalityidentified. CRITICAL RESULT: No. COMMUNICATION: Per this written report. Drafted by Virgil Albrecht MD on 03/02/2025 8:36 PM Final report signed by Virgil Albrecht MD on 03/02/2025 8:37 PM us Jose Salinas MD IMG XR PROCEDURES Final Resu lt * XR Chest 1 View (03/02/2025 8:01 PM EDT) Anatomical Region Laterality Modality Chest Digital Radiogra phy Impressions 03/02/2025 8:37 PM EDT Degenerative and posttreatment changes without acute abnormality identified. CRITICAL RESULT: No. COMMUNICATION: Per this written report. Drafted by Virgil Albrecht MD on 03/02/2025 8:36 PM Final report signed by Virgil Albrecht MD on 03/02/2025 8:37 PM Narrative 03/02/2025 8:37 PM EDT CLINICAL INDICATION: Pain. TECHNIQUE: XR CHEST 1 VIEW, XR ABDOMEN 1 VIEW COMPARISON: None. FINDINGS: Severe left greater than right glenohumeral joint osteoarthritis. No fracture, subluxation, or dislocation. Posterior lumbar spine fusion construct has lucency around the sacral screws. Moderate thoracic spine discogenic disease with osteophytosis. No pleural effusion or pneumothorax. Cardiomediastinal silhouette is normal. Lungs are clear. Bowel gas pattern is normal. No renal collecting system stone is seen on the right. Possible 8mm left-sided renal collecting system stone. Moderate right and mild to moderate left hip osteoarthritis. Procedure Note Virgil Albrecht MD - 03/02/2025 CLINICAL INDICATION: Pain. TECHNIQUE: XR CHEST 1 VIEW, XR ABDOMEN 1 VIEW COMPARISON: None. FINDINGS: Severe left greater than right glenohumeral joint osteoarthritis. Nofracture, subluxation, or dislocation. Posterior lumbar spine fusionconstruct has lucency around the sacral screws. Moderate thoracic spinediscogenic disease with osteophytosis. No pleural effusion orpneumothorax. Cardiomediastinal silhouette is normal. Lungs are clear.Bowel gas pattern is normal. No renal collecting system stone is seen onthe right. Possible 8mm left-sided renal collecting system stone. Moderateright and mild to moderate left hip osteoarthritis. IMPRESSION: Degenerative and posttreatment changes without acute abnormalityidentified. CRITICAL RESULT: No. COMMUNICATION: Per this written report. Drafted by Virgil Albrecht MD on 03/02/2025 8:36 PM Final report signed by Virgil Albrecht MD on 03/02/2025 8:37 PM us Jose Salinas MD IMG XR PROCEDURES Final Resu lt * Light Green Top (03/02/2025 6:44 PM EDT) Extra Hold for add-ons 03/02/2025 9:02 PM EDT [facility] Comment:Auto resulted. Blood Venous blood specimen / Unknown 03/02/2025 6:44 PM EDT 03/02/2025 6:53 PM EDT us Jose Salinas MD LAB BLOOD ORDERABLES Final R esult [facility] [address] [place] [address] * ED HIV 1/2 Antibody/Antigen Screen w/Reflex to HIV 1/2 Differentiation (03/02/2025 6:44 PM EDT) Pathologist [facility] HIV 1 & 2 Antibody/Antigen Screen Non Reactive Non Reactive 03/02/2025 7:48 PM EDT [facility] Comment:Screening for HIV 1 & 2 antibodies, and P24 antigen is NONREACTIVE. No confirmatory testing is required. Blood Venous blood specimen / Unknown Venipuncture / Unknown 03/02/2025 6:44 PM EDT 03/02/2025 7:02 PM EDT us Jose Salinas MD LAB BLOOD ORDERABLES Final R esult [facility] [address] [place] [address] * Hepatitis C Antibody - ED (03/02/2025 6:44 PM EDT) [facility] Hepatitis C Antibody Negative Negative 03/02/2025 7:48 PM EDT [facility] Blood Venous blood specimen / Unknown Venipuncture / Unknown 03/02/2025 6:44 PM EDT 03/02/2025 7:02 PM EDT us Jose Salinas MD LAB BLOOD ORDERABLES Final R esult [facility] [address] [place] [address] * Magnesium (03/02/2025 6:44 PM EDT) [facility] Magnesium, Plasma 1.9 1.9 - 2.4 mg/dL 03/02/2025 7:09 PM EDT [facility] Blood Venous blood specimen / Unknown Venipuncture / Unknown 03/02/2025 6:44 PM EDT 03/02/2025 6:49 PM EDT us Jose Salinas MD LAB BLOOD ORDERABLES Final R esult [facility] [address] [place] [address] * (ABNORMAL) CMP (03/02/2025 6:44 PM EDT) Pathologist [facility] Glucose, Plasma 107(H) 74 - 99 mg/dL 03/02/2025 7:09 PM EDT [facility] BUN, Plasma 24(H) 8 - 23 mg/dL 03/02/2025 7:09 PM EDT [facility] Creatinine, Plasma 1.02 0.60 - 1.10 mg/dL 03/02/2025 7:09 PM EDT [facility] BUN/Creatinine Ratio 24 03/02/2025 7:09 PM EDT [facility] Sodium, Plasma 130(L) 136 - 145 mmol/L 03/02/2025 7:09 PM EDT [facility] Potassium, Plasma 4.8 3.6 - 4.9 mmol/L 03/02/2025 7:09 PM EDT [facility] Chloride, Plasma 96(L) 97 - 107 mmol/L 03/02/2025 7:09 PM EDT [facility] CO2, Plasma 24 22 - 29 mmol/L 03/02/2025 7:09 PM EDT [facility] Anion Gap 10 6 - 16 mmol/L 03/02/2025 7:09 PM EDT [facility] Total Calcium, Plasma 8.8(L) 8.9 - 10.2 mg/dL 03/02/2025 7:09 PM EDT [facility] Total Protein 5.7(L) 6.3 - 7.9 g/dL 03/02/2025 7:09 PM EDT [facility] Albumin, Plasma 3.6 3.5 - 5.2 g/dL 03/02/2025 7:09 PM EDT [facility] AST, Plasma 19 10 - 35 U/L 03/02/2025 7:09 PM EDT [facility] Comment:Hemolyzed, result ma y be falsely increased. ALT, Plasma 25 10 - 35 U/L 03/02/2025 7:09 PM EDT [facility] Alkaline Phosphatase, Plasma 92 46 - 142 U/L 03/02/2025 7:09 PM EDT [facility] Total Bilirubin, Plasma 0.4 0.2 - 1.1 mg/dL 03/02/2025 7:09 PM EDT [facility] eGFRcr 54.0 mL/min/1.7 3m*2 03/02/2025 7:09 PM EDT [facility] Comment:Reported eGFRcr in m L/min/1.73m2 is based the CKD-EPI 2020 equation that does not use a race coefficient. Blood Venous blood specimen / Unknown Venipuncture / Unknown 03/02/2025 6:44 PM EDT 03/02/2025 6:49 PM EDT Jose Salinas MD LAB BLOOD ORDERABLES Final R esult [facility] [address] [place] [address] * Type and screen (03/02/2025 6:44 PM EDT) ABO/Rh O Positive 03/02/2025 6:08 PM EDT [facility] Antibody Screen Negative 03/02/2025 6:08 PM EDT [facility] Specimen Expiration 03/05/2025 23:59 03/02/2025 6:08 PM EDT [facility]LO[facility] Blood Venous blood specimen / Unknown Venipuncture / Unknown 03/02/2025 6:44 PM EDT 03/02/2025 6:51 PM EDT us Jose Salinas MD LAB BLOOD BANK TEST ORDERABL ES Final Result Performing Organization Address City/[facility]/ZIP Co de Phone Number BLOOD BANK [address] [place] [address], [place] * PT-INR (03/02/2025 6:44 PM EDT) [facility] Prothrombin Time 13.1 12.0 - 14.3 sec 03/02/2025 7:04 PM EDT [facility] INR 1.0 0.9 - 1.1 03/02/2025 7:04 PM EDT [facility] Blood Venous blood specimen / Unknown Venipuncture / Unknown 03/02/2025 6:44 PM EDT 03/02/2025 6:49 PM EDT [facility] - 03/02/2025 7:04 PM EDT OPTIMAL INR RANGES FOR PATIENT ON ORAL ANTICOAGULANT THERAPY Prevention of venous thromboembolism INR 2.0 to 3.0 In patients with heart disease: Atrial fibrillation INR 2.0 to 3.0 Valvular heart disease INR 2.0 to 3.0 Tissue heart valves INR 2.0 to 3.0 Mechanical prosthetic valves INR 2.5 to 3.5 Prevention of recurrent WI INR 2.5 to 3.5 us Jose Salinas MD LAB BLOOD ORDERABLES Final R esult [facility] [address] [place] [address] * (ABNORMAL) CBC w/diff (03/02/2025 6:44 PM EDT) [facility] WBC Count 7.31 3.70 - 10.30 10*3/uL LAB HEMATOLOGY METHOD 03/02/2025 6:52 PM EDT [facility] RBC Count 3.91 3.90 - 5.20 10*6/uL LAB HEMATOLOGY METHOD 03/02/2025 6:52 PM EDT [facility] HGB 12.0 11.2 - 15.7 g/dL LAB HEMATOLOGY METHOD 03/02/2025 6:52 PM EDT [facility] HCT 34.7 34.0 - 45.0 % LAB HEMATOLOGY METHOD 03/02/2025 6:52 PM EDT [facility] Platelet Count 161 155 - 369 10*3/uL LAB HEMATOLOGY METHOD 03/02/2025 6:52 PM EDT [facility] MCV 89 79 - 98 fL LAB HEMATOLOGY METHOD 03/02/2025 6:52 PM EDT [facility] MCH 30.7 26.0 - 32.0 pg LAB HEMATOLOGY METHOD 03/02/2025 6:52 PM EDT [facility] MCHC 34.6 30.7 - 35.5 g/dL LAB HEMATOLOGY METHOD 03/02/2025 6:52 PM EDT [facility] RDW 14.3 11.5 - 14.5 % LAB HEMATOLOGY METHOD 03/02/2025 6:52 PM EDT [facility] MPV 9.3 8.8 - 12.5 fL LAB HEMATOLOGY METHOD 03/02/2025 6:52 PM EDT [facility] nRBC 0.0 <=0.0 per 100 WBCs LAB HEMATOLOGY METHOD 03/02/2025 6:52 PM EDT [facility] Differential Type Automated LAB HEMATOLOGY METHOD 03/02/2025 6:52 PM EDT [facility] Neutrophils % 78 % LAB HEMATOLOGY METHOD 03/02/2025 6:52 PM EDT [facility] Lymphocytes % 10 % LAB HEMATOLOGY METHOD 03/02/2025 6:52 PM EDT [facility] Monocytes % 8 % LAB HEMATOLOGY METHOD 03/02/2025 6:52 PM EDT [facility] Eosinophils % 2 % LAB HEMATOLOGY METHOD 03/02/2025 6:52 PM EDT [facility] Basophils % 1 % LAB HEMATOLOGY METHOD 03/02/2025 6:52 PM EDT [facility] Immature Granulocytes % 1 % LAB HEMATOLOGY METHOD 03/02/2025 6:52 PM EDT [facility] Neutrophils Absolute 5.69 1.60 - 6.10 10*3/uL LAB HEMATOLOGY METHOD 03/02/2025 6:52 PM EDT [facility] Lymphocytes Absolute 0.76(L) 1.20 - 3.90 10*3/uL LAB HEMATOLOGY METHOD 03/02/2025 6:52 PM EDT [facility] Monocytes Absolute 0.60 0.30 - 0.90 10*3/uL LAB HEMATOLOGY METHOD 03/02/2025 6:52 PM EDT [facility] Eosinophils Absolute 0.15 0.00 - 0.50 10*3/uL LAB HEMATOLOGY METHOD 03/02/2025 6:52 PM EDT [facility] Basophils Absolute 0.06 0.00 - 0.10 10*3/uL LAB HEMATOLOGY METHOD 03/02/2025 6:52 PM EDT [facility] Immature Granulocytes Absolute 0.05 0.00 - 0.06 10*3/uL LAB HEMATOLOGY METHOD 03/02/2025 6:52 PM EDT [facility] Blood Venous blood specimen / Unknown Venipuncture / Unknown 03/02/2025 6:44 PM EDT 03/02/2025 6:49 PM EDT Narrative [facility] - 03/02/2025 6:52 PM EDT Therapeutic decision making should be based on absolute values, rather than percentages. us Jose Salinas MD LAB BLOOD ORDERABLES Final R esult [facility] [address] [place] [address] * EKG now - STAT (adult) (03/02/2025 6:12 PM EDT) EKG DIAGNOSIS CLASS Abnormal MUSE ECG Ventricular Rate 66 BPM MUSE ECG Atrial Rate 66 BPM MUSE ECG SC Interval 104 ms MUSE ECG QRSD Interval 76 ms MUSE ECG QT Interval 398 ms MUSE ECG QTC Interval 417 ms MUSE ECG P [place] 85 degrees MUSE ECG R [place] -31 degrees MUSE ECG T Wave [place] 9 degrees MUSE ECG Diagnosis Sinus rhythm with short SC MUSE ECG Diagnosis Left axis deviation MUSE ECG Diagnosis Poor R-wave progression Cannot rule out Anterior infarct , age undetermined MUSE ECG Diagnosis Abnormal ECG MUSE ECG Diagnosis Need clinical information and correlation MUSE ECG Diagnosis Confirmed by Mynor Baptiste ([id number]) on 03/02/2025 7:25:29 PM MUSE ECG 03/02/2025 6:12 PM EDT 03/02/2025 7:25 PM EDT us Jose Salinas MD ECG ORDERABLES Final Result MUSE ECG documented in this encounter Visit Diagnoses Diagnosis Fall from standing, initial encounter- Primary Closed fracture of eleventh thoracic vertebra, unspecified fracture morphology, initial encounter (CMS/HCC) Closed T11 fracture (CMS/HCC) HTN (hypertension) Unspecified essential hypertension Dementia (CMS/HCC) Other persistent mental disorders due to conditions classified elsewhere Hyperglycemia Other abnormal glucose Hyponatremia Hyposmolality and/or hyponatremia Protein calorie malnutrition (CMS/HCC) Unspecified protein-calorie malnutrition Cervical spine degeneration Cervical spondylosis without myelopathy Degeneration of intervertebral disc of thoracic region Lumbar degenerative disc disease Osteoarthritis Osteoarthrosis, unspecified whether generalized or localized, unspecified site Left renal stone Urinary retention Unspecified retention of urine Delirium Other alteration of consciousness documented in this encounter Admitting Diagnoses Diagnosis Fall from standing, initial encounter documented in this encounter Administered Medications Inactive Administered Medications - up to 3 most recent administrations Medication Order MAR Action Action Date Dose Rate Site acetaminophen (Tylenol) tablet 650 mg 650 mg, Oral, Every 6 hours scheduled, First dose on Sat03/03/25 at 0000, Until Discontinued, Routine Given 03/10/2025 2:11 PM EDT 650 mg Given 03/10/2025 6:02 AM EDT 650 mg Given 03/09/2025 11:03 PM EDT 650 mg bisacodyl (Dulcolax) suppository 10 mg 10 mg, Rectal, Once as needed, 1 dose, Starting on Sat03/05/25 at 1941, Until Sat03/10/25 at 1658, Routine, constipation dextrose 5 % and lactated Ringer's infusion 65 mL/hr, Intravenous, Continuous, Starting on Sat03/02/25 at 2250, Until Sat03/03/25 at 0936, Routine New Bag 03/02/2025 11:41 PM EDT 65 mL/hr 65 mL/hr enoxaparin (Lovenox) syringe 30 mg 30 mg, Subcutaneous, 2 times daily, First dose on Sat03/02/25 at 2250, Until Discontinued, Routine Given 03/09/2025 8:12 AM EDT 30 mg Left Lower Abdomen Given 03/08/2025 8:07 PM EDT 30 mg Le ft Lower Abdomen Given 03/08/2025 8:05 AM EDT 30 mg Le ft Lower Abdomen enoxaparin (Lovenox) syringe 40 mg 40 mg, Subcutaneous, 2 times daily, First dose (after last modification) on Sat03/09/25 at 2100, Until Discontinued, Routine Given 03/10/2025 8:42 AM EDT 40 mg Left Lower Abdomen Given 03/09/2025 8:58 PM EDT 40 mg Le ft Lower Abdomen gabapentin (Neurontin) capsule 300 mg 300 mg, Oral, 2 times daily, First dose on Sat03/04/25 at 0905, Until Discontinued, Routine Given 03/10/2025 8:42 AM EDT 300 mg Given 03/09/2025 8:58 PM EDT 300 mg Given 03/09/2025 8:13 AM EDT 300 mg ibuprofen tablet 400 mg 400 mg, Oral, Once as needed, 1 dose, Starting on Sat03/08/25 at 0230, Until Sat03/08/25 at 0237, Routine, headaches Given 03/08/2025 2:37 AM EDT 400 mg ibuprofen tablet 400 mg 400 mg, Oral, Once as needed, 1 dose, Starting on Sat03/10/25 at 0136, Until Sat03/10/25 at 0139, Routine, headaches Given 03/10/2025 1:39 AM EDT 400 mg ipratropium-albuterol (Duo-Neb) 0.5-2.5 mg/3 mL nebulizer solution 3 mL 3 mL, Nebulization, Every 6 hours PRN, Starting on Sat03/07/25 at 1936, Until Sat03/10/25 at 1658, Routine, wheezing Given 03/07/2025 8:21 PM EDT 3 mL losartan (Cozaar) tablet 100 mg 100 mg, Oral, Daily, First dose on Sat03/04/25 at 0910, Until Discontinued, Routine Given 03/10/2025 8:42 AM EDT 100 mg Given 03/09/2025 8:13 AM EDT 100 mg Given 03/08/2025 8:04 AM EDT 100 mg melatonin tablet 6 mg 6 mg, Oral, Nightly, First dose on Sat03/03/25 at 2155, Until Discontinued, Routine Given 03/03/2025 10:17 PM EDT 6 mg melatonin tablet 9 mg 9 mg, Oral, Nightly, First dose (after last modification) on Sat03/04/25 at 2100, Until Discontinued, Routine Given 03/09/2025 8:58 PM EDT 9 mg Given 03/08/2025 8:08 PM EDT 9 mg Given 03/07/2025 8:32 PM EDT 9 mg memantine (Namenda) tablet 10 mg 10 mg, Oral, 2 times daily, First dose on Sat03/04/25 at 0900, Until Discontinued, Routine Given 03/10/2025 8:42 AM EDT 10 mg Given 03/09/2025 8:58 PM EDT 10 mg Given 03/09/2025 8:13 AM EDT 10 mg methocarbamol (Robaxin) tablet 500 mg 500 mg, Oral, Every 8 hours, First dose on Sat03/02/25 at 2250, Until Discontinued, Routine Given 03/10/2025 2:11 PM EDT 500 mg Given 03/10/2025 6:02 AM EDT 500 mg Given 03/09/2025 11:03 PM EDT 500 mg ondansetron (Zofran) 4 MG/5ML solution 4 mg 4 mg, Oral, Every 6 hours PRN, Starting on Sat03/02/25 at 2246, Until Sat03/10/25 at 1658, Routine, nausea, vomiting ondansetron (Zofran) injection 4 mg 4 mg, Intravenous, Every 6 hours PRN, Starting on Sat03/02/25 at 2246, Until Sat03/10/25 at 1658, Routine, vomiting, nausea ondansetron ODT (Zofran-ODT) disintegrating tablet 4 mg 4 mg, Oral, Every 6 hours PRN, Starting on Sat03/02/25 at 2246, Until Sat03/10/25 at 1658, Routine, nausea, vomiting oxyCODONE (Roxicodone) immediate release tablet 5 mg 5 mg, Oral, Every 6 hours PRN, Starting on Sat03/02/25 at 2246, Until Sat03/08/25 at 1321, Routine, severe pain Given 03/08/2025 12:00 PM EDT 5 mg Given 03/03/2025 2:03 AM EDT 5 mg pantoprazole (Protonix) EC tablet 40 mg 40 mg, Oral, Daily, First dose on Sat03/04/25 at 0905, Until Discontinued, Routine Given 03/10/2025 8:42 AM EDT 40 mg Given 03/09/2025 8:13 AM EDT 40 mg Given 03/08/2025 8:05 AM EDT 40 mg polyethylene glycol (Miralax) packet 17 g 17 g, Oral, Daily, First dose on Sat03/03/25 at 0900, Until Discontinued, Routine Given 03/10/2025 8:42 AM EDT 17 g Given 03/09/2025 8:14 AM EDT 17 g Given 03/08/2025 8:05 AM EDT 17 g predniSONE (Deltasone) tablet 20 mg 20 mg, Oral, 3 times daily, First dose on Sat03/04/25 at 1600, Until Discontinued, Routine Given 03/10/2025 8:42 AM EDT 20 mg Given 03/09/2025 8:58 PM EDT 20 mg Given 03/09/2025 3:27 PM EDT 20 mg primidone (Mysoline) tablet 250 mg 250 mg, Oral, Nightly, First dose on Sat03/04/25 at 2100, Until Discontinued, Routine Given 03/09/2025 8:58 PM EDT 250 mg Given 03/08/2025 8:14 PM EDT 250 mg Given 03/07/2025 8:33 PM EDT 250 mg propranolol (Inderal) tablet 60 mg 60 mg, Oral, 2 times daily, First dose on Sat03/04/25 at 1335, Until Discontinued Given 03/09/2025 8:59 PM EDT 60 mg Given 03/09/2025 8:13 AM EDT 60 mg Given 03/08/2025 8:14 PM EDT 60 mg senna-docusate (Clair-Colace) 8.6-50 MG per tablet 1 tablet 1 tablet, Oral, Nightly, First dose on Sat03/03/25 at 2100, Until Discontinued, Routine Given 03/09/2025 8:58 PM EDT 1 tablet Given 03/06/2025 8:32 PM EDT 1 tablet Given 03/05/2025 8:30 PM EDT 1 tablet sodium chloride 0.9 % flush 10 mL 10 mL, Intravenous, Every 12 hours, First dose on Sat03/02/25 at 2250, Until Discontinued, Routine Given 03/10/2025 8:51 AM EDT 10 mL Given 03/09/2025 9:02 PM EDT 10 mL Given 03/08/2025 8:08 PM EDT 10 mL sodium chloride 0.9 % flush 10 mL 10 mL, Intravenous, As needed, Starting on Sat03/02/25 at 2238, Until Sat03/10/25 at 1658, Routine, line care Given 03/03/2025 9:31 AM EDT 10 mL documented in this encounter Active and Recently Administered Medications Times are shown in EDT. Scheduled Medication Order 03/08/2025 03/09/2025 03/10/2025 acetaminophen (Tylenol) tablet 650 mg 650 mg, Oral, Every 6 hours scheduled, First dose on Sat03/03/25 at 0000, Until Discontinued, Routine 0553 (Given - Provider: Luma Monge)1200 (Given - Provider: Everardo Page)1701 (Given - Provider: Evearrdo Page) 0010 (Not Given - Provider: Adele Mata, JIMBO - Reason: Patient/family refused)0553 (Given - Provider: Adele Mata, JIMBO)1135 (Given - Provider: Everardo Page)1719 (Given - Provider: Everardo Page)2303 (Given - Provider: Luma Monge) 0602 (Given - Provider: Luma Monge)141 (Given - Provider: Marques Pires, JIMBO) enoxaparin (Lovenox) syringe 30 mg (CANCELED) 30 mg, Subcutaneous, 2 times daily, First dose on Sat03/02/25 at 2250, Until Discontinued, Routine 804 (Given - Provider: Everardo Page)2006 (Given - Provider: Adele Mata, JIMBO) 811 (Given - Provider: Everardo Page) enoxaparin (Lovenox) syringe 40 mg 40 mg, Subcutaneous, 2 times daily, First dose (after last modification) on Sat03/09/25 at 2100, Until Discontinued, Routine 2057 (Given - Provider: Luma Monge) 08 (Given - Provider: Marques Pires, JIMBO) gabapentin (Neurontin) capsule 300 mg 300 mg, Oral, 2 times daily, First dose on Sat03/04/25 at 0905, Until Discontinued, Routine 804 (Given - Provider: Everardo Page)2006 (Given - Provider: Adele Mata, JIMBO) 812 (Given - Provider: Everardo Page)2057 (Given - Provider: Luma Monge) 0842 (Given - Provider: Marques Pires, JIMBO) losartan (Cozaar) tablet 100 mg 100 mg, Oral, Daily, First dose on Sat03/04/25 at 0910, Until Discontinued, Routine 08 (Given - Provider: Everardo Page) 08 (Given - Provider: Everardo Page) 0842 (Given - Provider: Marques Pires, RN) melatonin tablet 9 mg 9 mg, Oral, Nightly, First dose (after last modification) on Sat03/04/25 at 2100, Until Discontinued, Routine 2007 (Given - Provider: Adele Mata RN) 2057 (Given - Provider: Luma Monge) memantine (Namenda) tablet 10 mg 10 mg, Oral, 2 times daily, First dose on Sat03/04/25 at 0900, Until Discontinued, Routine 804 (Given - Provider: Everardo Page)2007 (Given - Provider: Adele Mata RN) 812 (Given - Provider: Everardo Page)2057 (Given - Provider: Luam Monge) 0842 (Given - Provider: Marques Pires, JIMBO) methocarbamol (Robaxin) tablet 500 mg 500 mg, Oral, Every 8 hours, First dose on Sat03/02/25 at 2250, Until Discontinued, Routine 0553 (Given - Provider: Luma Monge)1427 (Given - Provider: Everardo Page)2228 (Given - Provider: Adele Mata RN) 0553 (Given - Provider: Adele Mata RN)1404 (Given - Provider: Everardo Page)2303 (Given - Provider: Luma Monge) 0602 (Given - Provider: Luma Monge)1411 (Given - Provider: Marques Pires, RN) pantoprazole (Protonix) EC tablet 40 mg 40 mg, Oral, Daily, First dose on Sat03/04/25 at 0905, Until Discontinued, Routine 08 (Given - Provider: Everardo Page) 08 (Given - Provider: Everardo Page) 0842 (Given - Provider: Marques Pires, RN) polyethylene glycol (Miralax) packet 17 g 17 g, Oral, Daily, First dose on Sat03/03/25 at 0900, Until Discontinued, Routine 08 (Given - Provider: Everardo Page) 0814 (Given - Provider: Everardo Page) 0842 (Given - Provider: Marques Pires, RN) predniSONE (Deltasone) tablet 20 mg 20 mg, Oral, 3 times daily, First dose on Sat03/04/25 at 1600, Until Discontinued, Routine 08 (Given - Provider: Everardo Page)1514 (Given - Provider: Everardo Page)2007 (Given - Provider: Adele Mata RN) 08 (Given - Provider: Everardo Page)152 (Given - Provider: Everardo Page)2057 (Given - Provider: Luma Monge) 0842 (Given - Provider: Marques Pires, RN)1600 (Canceled Entry - Provider: Automatic Discharge Provider - Comment: Automatically canceled at discontinue of medication order) primidone (Mysoline) tablet 250 mg 250 mg, Oral, Nightly, First dose on Sat03/04/25 at 2100, Until Discontinued, Routine 2013 (Given - Provider: Adele Mata RN) 2057 (Given - Provider: Luma Monge) propranolol (Inderal) tablet 60 mg 60 mg, Oral, 2 times daily, First dose on Sat03/04/25 at 1335, Until Discontinued 803 (Given - Provider: Everardo Page)2013 (Given - Provider: Adele Mata RN) 812 (Given - Provider: Everardo Page)2058 (Given - Provider: Luma Monge) 0851 (Not Given - Provider: Marques Pires, RN - Reason: Order parameters not met) senna-docusate (Clair-Colace) 8.6-50 MG per tablet 1 tablet 1 tablet, Oral, Nightly, First dose on Sat03/03/25 at 2100, Until Discontinued, Routine 2008 (Not Given - Provider: Adele Mata RN - Reason: Patient/family refused) 2057 (Given - Provider: Luma Monge) sodium chloride 0.9 % flush 10 mL(Linked Group 1) 10 mL, Intravenous, Every 12 hours, First dose on Sat03/02/25 at 2250, Until Discontinued, Routine 805 (Canceled Entry - Provider: Everardo Page)2007 (Given - Provider: Adele Mata RN) 813 (Canceled Entry - Provider: Everardo Page)2101 (Given - Provider: Luma Monge) 51 (Given - Provider: Marques Pires RN) PRN Medication Order 03/08/2025 03/09/2025 03/10/2025 bisacodyl (Dulcolax) suppository 10 mg 10 mg, Rectal, Once as needed, 1 dose, Starting on Sat03/05/25 at 1941, Until Sat03/10/25 at 1658, Routine, constipation ibuprofen tablet 400 mg (COMPLETED) 400 mg, Oral, Once as needed, 1 dose, Starting on Sat03/08/25 at 0230, Until Sat03/08/25 at 0237, Routine, headaches 0237 (Given - Provider: Luma Monge) ibuprofen tablet 400 mg (COMPLETED) 400 mg, Oral, Once as needed, 1 dose, Starting on Sat03/10/25 at 0136, Until Sat03/10/25 at 0139, Routine, headaches 0139 (Given - Provid er: Luma Monge) ipratropium-albuterol (Duo-Neb) 0.5-2.5 mg/3 mL nebulizer solution 3 mL 3 mL, Nebulization, Every 6 hours PRN, Starting on Sat03/07/25 at 1936, Until Sat03/10/25 at 1658, Routine, wheezing ondansetron (Zofran) 4 MG/5ML solution 4 mg(Linked Group 2) 4 mg, Oral, Every 6 hours PRN, Starting on Sat03/02/25 at 2246, Until Sat03/10/25 at 1658, Routine, nausea, vomiting ondansetron (Zofran) injection 4 mg(Linked Group 2) 4 mg, Intravenous, Every 6 hours PRN, Starting on Sat03/02/25 at 2246, Until Sat03/10/25 at 1658, Routine, vomiting, nausea ondansetron ODT (Zofran-ODT) disintegrating tablet 4 mg(Linked Group 2) 4 mg, Oral, Every 6 hours PRN, Starting on Sat03/02/25 at 2246, Until Sat03/10/25 at 1658, Routine, nausea, vomiting oxyCODONE (Roxicodone) immediate release tablet 5 mg (CANCELED)(Linked Group 3) 5 mg, Oral, Every 6 hours PRN, Starting on Sat03/02/25 at 2246, Until Sat03/08/25 at 1321, Routine, severe pain 1200 (Given - Provider: Everardo Page) sodium chloride 0.9 % flush 10 mL(Linked Group 1) 10 mL, Intravenous, As needed, Starting on Sat03/02/25 at 2238, Until Sat03/10/25 at 1658, Routine, line care Linked Groups Order Group 1: Insert peripheral IV (CANCELED) Once, On Sat03/02/25 at 2239, For 1 occurrence And Saline lock IV (CANCELED) Once, On Sat03/02/25 at 2239, For 1 occurrence And sodium chloride 0.9 % flush 10 mLJump to med 10 mL, Intravenous, Every 12 hours, First dose on Sat03/02/25 at 2250, Until Discontinued, Routine And sodium chloride 0.9 % flush 10 mLJump to med 10 mL, Intravenous, As needed, Starting on Sat03/02/25 at 2238, Until Sat03/10/25 at 1658, Routine, line care Group 2: ondansetron ODT (Zofran-ODT) disintegrating tablet 4 mgJump to med 4 mg, Oral, Every 6 hours PRN, Starting on Sat03/02/25 at 2246, Until Sat03/10/25 at 1658, Routine, nausea, vomiting Or ondansetron (Zofran) injection 4 mgJump to med 4 mg, Intravenous, Every 6 hours PRN, Starting on Sat03/02/25 at 2246, Until Sat03/10/25 at 1658, Routine, vomiting, nausea Or ondansetron (Zofran) 4 MG/5ML solution 4 mgJump to med 4 mg, Oral, Every 6 hours PRN, Starting on Sat03/02/25 at 2246, Until Sat03/10/25 at 1658, Routine, nausea, vomiting Group 3: oxyCODONE (Roxicodone) immediate release tablet 2.5 mg (CANCELED) 2.5 mg, Oral, Every 6 hours PRN, Starting on Sat03/02/25 at 2246, Until Sat03/08/25 at 1321, Routine, moderate pain Or oxyCODONE (Roxicodone) immediate release tablet 5 mg (CANCELED)Jump to med 5 mg, Oral, Every 6 hours PRN, Starting on Sat03/02/25 at 2246, Until 03/08/25 at 1321, Routine, severe pain documented in this encounter Additional Health Concerns Assessment Noted Time A Body Mass Index follow-up plan has been documented for the patient 03/10/2025 2:13 PM EDT documented as of this encounter Care Teams [employer] Relationship Specialty Start Date End Date Dg Kang MD [address] [place] [address] [address] [place] [address] PCP - General 02/03/21 documented as of this encounter
--- OUTSIDE RECORDS SUMMARY | 2025-04-06 10:03 | XMS_ITS | Encounter Summary ---
Author Organization Healthcare Address [address] [place] [address] Care Team Providers Care Construction Laborer Name Role Phone Dg Kang MD Primary Care Provider [phone] Amada Rose SCIENCE FACULTY MEMBER Unavailable [phone] Encounter Details Date Type Department Care Team (Latest Contact Info) Description 04/06/2025 10:03 AM EDT - 04/06/2025 11:59 PM EDT Hospital Encounter [facility] [address], [address] [place] [address] Closed fracture of eleventh thoracic vertebra with [...] and Family Not on file 03/05/2025 Attends Roman Catholic Services Not on file 03/05 Active Member [...] any time in the past 12 m [facility], were you homeless or living in a alf (including now)? No 03/05/2025 Utilities Answer Date [...] Visit [place] [facility] [address], [address] [place] [address] Amada Rose, INEZ [address] [place] [address] documented as of this encounter Procedures Procedure [...] 04/06/2025 11:13 AM Amada John Paul Valeriosoo SCIENCE FACULTY MEMBER IMG XR PROCEDURES Final Resu lt * [...] documented as of this encounter Care Teams Construction Laborer Relationship Specialty Start Date End Date Dg Kang MD [address] [place] [address] PCP - General 02/03/21 Amada Rose APRN [address] [place] [address] Nurse Practitioner Neurosurgery 04/06/25 documented as of this encounter
--- OUTSIDE RECORDS SUMMARY | 2025-04-06 10:40 | XMS_ITS | Encounter Summary ---
Author Organization Healthcare Address [address] [place] [address] Care Team Providers Care Ecmo Specialist Name Role Phone Dg Kang MD Primary Care Provider [phone] Amada Rose NURSE STAFF INDUSTRIAL Unavailable [phone] Encounter Details Date Type Department Care Team (Late st Contact Info) Description 04/06/2025 10:40 AM EDT Office Visit [place] [facility] [address], [address] [place] [address] Amada Rose, NURSE STAFF INDUSTRIAL [address] [place] [address] Closed fracture of eleventh thoracic [...] and Family Not on file 03/05/2025 Attends Faith Services Not on file 03/05 Active Member [...] any time in the past [address] [facility], were you homeless or living in a [...] Notes * Progress Notes - Amada Rose, NURSE STAFF INDUSTRIAL - 04/06/2025 10:40 AM EDT We had [...] 5/5 5/5 C7: Triceps 5/5 5/5 C8: Biometric Fingerprinting Technician 5/5 5/5 T1: Intrinsics 5/5 5/5 Lower [...] with return appointment reminder. Amada Rose APRN [facility] Department of Neurosurgery This note was dictated using voice to text software and may contain errors 40 minutes was spent reviewing previous documentation and imaging, completion of today's documentation, [id number] visit, care coordination and planning [1] Past [...] Visit [place] [facility] [address], [address] [place] [address] Amada Rose APRN [address] [place] [address] documented as of this encounter Results * [...] on 04/06/2025 11:13 AM us Amada Rose NURSE STAFF INDUSTRIAL IMG XR PROCEDURES Final Resu lt * [...] documented as of this encounter Care Teams Ecmo Specialist Relationship Specialty Start Date End Date Dg Kang MD [facility] [place] [address] PCP - General 02/03/21 Amada Rose APRN [address] [facility] [address] [place] [address] Nurse Practitioner Neurosurgery 04/06/25 documented as of this encounter
[2025-05-07] VITALS (8 sets, daily range): BP systolic 128–156; BP diastolic 65–92; PULSE 63–69; RESP 20; TEMP 36.4; O2SAT 95–98; BMI 29.6
--- NOTE | 2025-05-07 06:03 | CT_ITS ---
PROCEDURE INFORMATION: Exam: CT Lumbar Spine Without Contrast Exam date and time: 05/07/2025 6:29 AM Age: 85 years old Clinical indication: Injury or trauma; Fall; Additional info: Previous t11 FX, low mechanism fall onto butt TECHNIQUE: Imaging protocol: Computed tomography of the lumbar spine without contrast. Radiation optimization: All CT scans at this facility use at least one of these dose optimization techniques: automated exposure control; mA and/or kV adjustment per patient size (includes targeted exams where dose is matched to clinical indication); or iterative reconstruction. COMPARISON: CT LUMBAR SPINE WO CON 03/02/2025 1:24 PM FINDINGS: Bones/joints: There is an oblique fracture through the anterior inferior corner of T11 on axial image 3:19 which is similar to the comparison study but with sclerotic margins making this injury much more obvious. Subtle fracture is also noted crossing through the anterior left superolateral margin of T12 on coronal image 36. This suggests a hyperextension injury with likely disruption of the anterior longitudinal ligament. No fracture of the posterior elements is identified. MRI may be appropriate to determine if other ligamentous injuries are present. There is no evidence of an acute fracture. There is pedicle screw fixation from L1 through S1 omitting the left screw at L5. Posterior rods appear intact. Posterior unroofing is again seen at L3 and L4. A left convex spinal curvature is observed. Soft tissues: Unremarkable. IMPRESSION: 1. There is an oblique fracture through the anterior inferior corner of T11 on axial image 3:19 which is similar to the comparison study but with sclerotic margins making this injury much more obvious. Subtle fracture is also noted crossing through the anterior left superolateral margin of T12 on coronal image 36. This suggests a hyperextension injury with likely disruption of the anterior longitudinal ligament. No fracture of the posterior elements is identified. MRI may be appropriate to determine if other ligamentous injuries are present. 2. There is no evidence of an acute fracture. 3. There is pedicle screw fixation from L1 through S1 omitting the left screw at L5. Posterior rods appear intact. Posterior unroofing is again seen at L3 and L4. A left convex spinal curvature is observed.
--- NOTE | 2025-05-07 06:03 | CT_ITS ---
PROCEDURE INFORMATION: Exam: CT Thoracic Spine Without Contrast Exam date and time: 05/07/2025 6:26 AM Age: 85 years old Clinical indication: Injury or trauma; Fall; Additional info: Previous t11 FX, low mechanism fall onto butt TECHNIQUE: Imaging protocol: Computed tomography of the thoracic spine without contrast. Radiation optimization: All CT scans at this facility use at least one of these dose optimization techniques: automated exposure control; mA and/or kV adjustment per patient size (includes targeted exams where dose is matched to clinical indication); or iterative reconstruction. COMPARISON: CT THORACIC SPINE WO CON 03/02/2025 1:21 PM FINDINGS: Limitations: Breathing is noted on these images limiting the interpretation. Bones/joints: Previous anterior inferior T11 oblique fracture is again seen with sclerotic margins and subtle extension including the left margin of T12 on coronal image 42. There is osteophytic bridging from the lower margin of T11 to the upper margin of T12 on the right side. 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 MRI may be helpful and neuro surgical consultation is recommended. There is no evidence of an acute fracture. Soft tissues: Unremarkable. Lymph nodes: There are multiple small calcified lymph nodes in the mediastinum, consistent with remote granulomatous organism exposure. Thyroid: The partially included thyroid appears normal. IMPRESSION: 1. Previous anterior inferior T11 oblique fracture is again seen with sclerotic margins and subtle extension including the left margin of T12 on coronal image 42. There is osteophytic bridging from the lower margin of T11 to the upper margin of T12 on the right side. 2. 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 MRI may be helpful and neuro surgical consultation is recommended. 3. There is no evidence of an acute fracture.
--- NOTE | 2025-05-07 06:04 | CT_ITS ---
PROCEDURE INFORMATION: Exam: CT Pelvis Without Contrast, Skeleton Exam date and time: 05/07/2025 6:32 AM Age: 85 years old Clinical indication: Injury or trauma; Fall; Additional info: Previous t11 FX, low mechanism fall onto butt TECHNIQUE: Imaging protocol: Computed tomography of the pelvis without contrast. Exam focused on the skeleton. Radiation optimization: All CT scans at this facility use at least one of these dose optimization techniques: automated exposure control; mA and/or kV adjustment per patient size (includes targeted exams where dose is matched to clinical indication); or iterative reconstruction. COMPARISON: CT BONY PELVIS 02/22/2025 1:03 AM FINDINGS: Bones/joints: There are moderate degenerative changes of the bilateral hip joints. Lumbar spine pedicle screw fixation is partially included and discussed separately. There is no evidence of an acute fracture. Soft tissues: Unremarkable. IMPRESSION: 1. Lumbar spine pedicle screw fixation is partially included and discussed separately. 2. There is no evidence of an acute fracture.
--- NOTE | 2025-05-07 06:05 | CT_ITS ---
PROCEDURE INFORMATION: Exam: CT Cervical Spine Without Contrast Exam date and time: 05/07/2025 6:23 AM Age: 85 years old Clinical indication: Injury or trauma; Fall; Additional info: Previous t11 FX, low mechanism fall onto butt TECHNIQUE: Imaging protocol: Computed tomography of the cervical spine without contrast. Radiation optimization: All CT scans at this facility use at least one of these dose optimization techniques: automated exposure control; mA and/or kV adjustment per patient size (includes targeted exams where dose is matched to clinical indication); or iterative reconstruction. COMPARISON: CT CERVICAL SPINE WO CON 06/17/2023 12:35 AM FINDINGS: Bones/joints: No acute fracture. There is partial straightening of cervical lordosis. There is slight grade anterolisthesis of C3 on C4 and C4 on C5. Otherwise alignment is maintained. There is multilevel advanced degenerative disc disease. There is multilevel spinal canal stenosis most notable at C6-C7 where there is [id number] stenosis secondary to disc osteophyte ridging. Lungs: Lung apices are normal. Soft tissues: Unremarkable. IMPRESSION: No acute cervical spine fracture.
--- NOTE | 2025-05-07 06:05 | CT_ITS ---
PROCEDURE INFORMATION: Exam: CT Head Without Contrast Exam date and time: 05/07/2025 6:21 AM Age: 85 years old Clinical indication: Injury or trauma; Fall; Additional info: Previous t11 FX, low mechanism fall onto butt TECHNIQUE: Imaging protocol: Computed tomography of the head without contrast. Radiation optimization: All CT scans at this facility use at least one of these dose optimization techniques: automated exposure control; mA and/or kV adjustment per patient size (includes targeted exams where dose is matched to clinical indication); or iterative reconstruction. COMPARISON: CT HEAD/BRAIN WO CON 02/22/2025 12:50 AM FINDINGS: Brain: There is mild to moderate small vessel disease. There is no evidence of acute parenchymal hemorrhage, extra-axial collection, or acute infarction. There is no mass effect, midline shift, or downward herniation. Cerebral ventricles: No ventriculomegaly. Paranasal sinuses: Visualized sinuses are unremarkable. No fluid levels. Mastoid air cells: Visualized mastoid air cells are well aerated. Bones: Unremarkable. No acute fracture. Soft tissues: Unremarkable. IMPRESSION: [id number] small vessel disease. No evidence of acute intracranial process.
--- NOTE | 2025-05-07 06:21 | ED_ITS ---
Discharge Plan Disposition Patient Disposition: Xfer Other Condition: Good Prescriptions Prescriptions: No Action diclofenac sodium 1 % gel 4 g topical QID PRN (Reason: Arthritis pain of knee) Qty: 100 5RF Rx Instructions: apply to single knee, ankle, foot; for foot includes sole/toes/top of foot lactulose 10 gram/15 mL solution 20 g PO BID PRN (Reason: constipation) Qty: 3785 3RF levalbuterol HCl 1.25 mg/3 mL solution for nebulization See Rx Instructions .ROUTE .COMPLEX Qty: 270 1RF Dose Instruction: INHALE THE CONTENTS OF 1 VIAL VIA NEBULIZER THREE TIMES DAILY NEEDED FOR ASTHMA Rx Instructions: INHALE THE CONTENTS OF 1 VIAL VIA NEBULIZER THREE TIMES DAILY NEEDED FOR ASTHMA gabapentin 300 mg capsule 600 mg PO HS Qty: 60 3RF memantine [Namenda] 10 mg tablet 10 mg PO BID Qty: 60 5RF losartan 100 mg tablet See Rx Instructions .ROUTE .COMPLEX Qty: 90 1RF Dose Instruction: TAKE ONE TABLET BY MOUTH EVERY DAY Rx Instructions: TAKE ONE TABLET BY MOUTH EVERY DAY primidone 250 mg tablet See Rx Instructions .ROUTE .COMPLEX Qty: 90 1RF Dose Instruction: TAKE ONE TABLET BY MOUTH EVERY DAY AT BEDTIME Rx Instructions: TAKE ONE TABLET BY MOUTH EVERY DAY AT BEDTIME simvastatin 20 mg tablet See Rx Instructions .ROUTE .COMPLEX Qty: 90 1RF Dose Instruction: TAKE ONE TABLET BY MOUTH EVERY DAY AT BEDTIME Rx Instructions: TAKE ONE TABLET BY MOUTH EVERY DAY AT BEDTIME pantoprazole 40 mg tablet,delayed release (DR/EC) See Rx Instructions .ROUTE .COMPLEX Qty: 90 1RF Dose Instruction: TAKE ONE TABLET BY MOUTH EVERY DAY Rx Instructions: TAKE ONE TABLET BY MOUTH EVERY DAY propranolol 60 mg tablet See Rx Instructions .ROUTE .COMPLEX Qty: 120 1RF Dose Instruction: TAKE ONE TABLET BY MOUTH TWICE DAILY Rx Instructions: TAKE ONE TABLET BY MOUTH TWICE DAILY Referrals Follow up/Referrals: Provider,Referral, [Primary Care Provider, Medical] - See instructions Activity Restrictions/Add. Instructions Additional Instructions/Restrictions: Stable for transfer to . Clinical Impressions Clinical Impression: Dementia, Fall, Closed fracture of T11 vertebra, Closed T12 fracture Print Language Print Language: Sami Discharge ED Provider: Du Mcmahan General Adult HPI <Du Mcmahan MD - Last Filed: 05/07/25 06:56> General Chief complaint: Fall Stated complaint: Fall Time Seen by Provider: 05/07/25 06:05 Mode of Arrival: EMS Source of Information: Patient and EMS Description of Symptoms (Recalled from ER Triage Doc. by RN): pt reports she was sitting on the side of the bed attempting to get up when she slid out of bed onto her bottom, pt denies hitting her head or any LOC. pt denies any pain at this time History of Present Illness HPI narrative: 85-year-old with history of dementia presents after a low mechanism fall. History obtained from patient EMS and caregiver. She sleeps on a very low bed, maybe 1 to 2 feet. She fell from a seated position on the bed onto the floor. She had a fall with a T11 fracture a few months ago. Daughter is concerned that she may have reinjured it. Reportedly patient has very high pain tolerance and does not report pain ever. On exam patient has no focal tenderness to palpation. She did not hit her head or lose consciousness per patient family or EMS. Not on blood thinners. Related Data Previous Rx's ?Medication ?Instructions ?Recorded diclofenac sodium 1 % topical gel 4 g topical QID PRN Arthritis pain 04/29/24 of knee #100 grams levalbuterol HCl 1.25 mg/3 mL See Rx Instructions .Rou te 09/25/24 solution for nebulization .COMPLEX #270 mL gabapentin 300 mg capsule 600 mg (2 x 300 mg) PO HS #6 0 caps 03/04/25 memantine 10 mg tablet (Namenda) 10 mg PO BID #60 tabs 03/04/25 losartan 100 mg tablet See Rx Instructions .Route 0 04/01/25 .COMPLEX #90 tabs primidone 250 mg tablet See Rx Instructions .Route 0 04/01/25 .COMPLEX #90 tabs simvastatin 20 mg tablet See Rx Instructions .Route 0 04/01/25 .COMPLEX #90 tabs lactulose 10 gram/15 mL oral 20 g (30 mL) PO BID PRN 0 04/29/25 solution constipation #3,785 mL pantoprazole 40 mg tablet,delayed See Rx Instructions .Route 05/06/25 release .COMPLEX #90 tabs propranolol 60 mg tablet See Rx Instructions .Route 0 05/06/25 .COMPLEX #120 tabs Allergies Allergy/AdvReac Type Severity Reaction Status Date / Time glucosamine Allergy Unknown BOWELS Verified 04/29/25 11:01 BLEEDING Sulfa (Sulfonamide Allergy Unknown Verified 04/29/25 11:01 Antibiotics) donepezil Allergy Verified 04/29/25 11:01 Penicillins Allergy Verified 04/29/25 11:01 sulfamethoxazole AdvReac Verified 04/29/25 11:01 PFSH <Du Mcmahan MD - Last Filed: 05/07/25 06:56> [facility] Disclaimer: The information contained in this section may have been updated after the patient was seen, as this information can be updated by other users. 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 , [employer]) Smoking Status: Never smoker alcohol intake: never substance use type: denies use current occupational status: other Travel in the last 8 weeks?: None household members: none housing: house current occupational exposures/hazards: No caffeine: No Other Medical History Have you received the Flu Vaccine for this season: Yes Have you received the Pneumonia Vaccine: Yes <Du Mcmahan MD - Last Filed: 05/07/25 06:56> ROS Obtained: Yes All systems reviewed & no additional complaints except as documented Physical Exam <Du Mcmahan MD - Last Filed: 05/07/25 06:56> General General appearance: alert and in no apparent distress Head Head exam: atraumatic and normocephalic Eye Eye exam: Present normal appearance, PERRL and EOMI ENT ENT exam: Present normal oropharynx and normal external ear exam Neck Neck exam: Present normal inspection and full ROM Chest Chest inspection: Present normal inspection and symmetric chest wall rise; Absent tenderness Respiratory Respiratory exam: Present normal lung sounds bilaterally; Absent respiratory dis tress Cardiovascular Cardiovascular exam: Present regular rate and normal rhythm Abdominal Exam Abdominal exam: Present soft; Absent distention, tenderness or guarding Extremities Exam Extremities exam: Present normal inspection; Absent edema or joint swelling Back Exam Back exam: Present normal inspection; Absent tenderness Neurological Exam Neurological exam: Present alert and oriented X3; Absent motor sensory deficit Psychiatric Psychiatric exam: Present normal affect and normal mood Skin Skin exam: Present warm, dry and normal color Lymphatic Lymphatic Findings: no adenopathy Medical Decision Making <Du Mcmahan MD - Last Filed: 05/07/25 06:56> Medical Records Medical records reviewed: Yes I reviewed the patient's medical records. Screening: Per USPSTF and CDC recommendations, given the prevalence of disease in our region, it is our hospital?s policy to screen for HIV and viral Hepatitis for all patients aged 18 and over and those with ongoing risk factors. Dano Inquiry Pt receiving controlled substance: No Dano was queried for this patient: No Vital Signs: 05/07/25 06:03 05/07/25 06:07 05/07/25 06:45 Temperature 97.5 F L Temperature Source Oral Pulse Rate 63 Pulse Rate [Right] 66 Respiratory Rate 20 Blood Pressure 128/66 Blood Pressure [Right Arm] 137/92 H Blood Pressure Mean [Right Arm] 107 02 Sat by Pulse Oximetry 95 95 97 Oxygen Delivery Method Room Air Room Air 05/07/25 07:00 05/07/25 07:30 05/07/25 08:00 Temperature Temperature Source Pulse Rate 65 66 68 Pulse Rate [Right] Respiratory Rate Blood Pressure 153/71 H 141/65 H 144/69 H Blood Pressure [Right Arm] Blood Pressure Mean [Right Arm] 02 Sat by Pulse Oximetry 97 98 97 Oxygen Delivery Method Room Air Room Air Room Air Lab Data Lab results reviewed: Yes I reviewed the patient's lab results. Orders (Tests/Meds): ORDERS Category Date Time Status CT bony pelvis Stat Cat Scan 05/07/25 06:[address] cervical spine wo con Stat Cat Scan 05/07/25 06:[address] head/brain wo con Stat Cat Scan 05/07/25 06:[address] lumbar spine wo con Stat Cat Scan 05/07/25 06:[address] thoracic spine wo con Stat Cat Scan 05/07/25 06:03 Completed Medical Decision Narrative: 85-year-old female with history of dementia, frequent falls, prior T11 fracture presents for low mechanism fall from approximately 1 to 2 feet onto her butt. History was obtained via interactive discussion with patient, EMS, patient's daughter. On arrival, patient is [afebrile, hemodynamically stable, satting appropriately, alert, oriented x3, GCS 15], moving all extremities spontaneously. Full physical exam performed and significant for no focal spinal tenderness, no extremity tenderness or deformity Differential includes but is not limited to intracranial traumas thoracic trauma intra-abdominal trauma spine trauma extremity trauma. Workup initiated including Noncon scan of the head, C,T and L-spine, bony pelvis. At this time care handed off to oncoming physician. <Silvia Muñiz DO - Last Filed: 05/07/25 08:33> Vital Signs: 05/07/25 06:03 05/07/25 06:07 05/07/25 06:45 Temperature 97.5 F L Temperature Source Oral Pulse Rate 63 Pulse Rate [Right] 66 Respiratory Rate 20 Blood Pressure 128/66 Blood Pressure [Right Arm] 137/92 H Blood Pressure Mean [Right Arm] 107 02 Sat by Pulse Oximetry 95 95 97 Oxygen Delivery Method Room Air Room Air 05/07/25 07:00 05/07/25 07:30 05/07/25 08:00 Temperature Temperature Source Pulse Rate 65 66 68 Pulse Rate [Right] Respiratory Rate Blood Pressure 153/71 H 141/65 H 144/69 H Blood Pressure [Right Arm] Blood Pressure Mean [Right Arm] 02 Sat by Pulse Oximetry 97 98 97 Oxygen Delivery Method Room Air Room Air Room Air Orders (Tests/Meds): ORDERS Category Date Time Status CT bony pelvis Stat Cat Scan 05/07/25 06:[address] cervical spine wo con Stat Cat Scan 05/07/25 06:[address] head/brain wo con Stat Cat Scan 05/07/25 06:[address] lumbar spine wo con Stat Cat Scan 05/07/25 06:[address] thoracic spine wo con Stat Cat Scan 05/07/25 06:03 Completed Medical Decision Narrative: Du Mcmahan MD 85-year-old female with history of dementia, frequent falls, prior T11 fracture presents for low mechanism fall from approximately 1 to 2 feet onto her butt. History was obtained via interactive discussion with patient, EMS, patient's daughter. On arrival, patient is [afebrile, hemodynamically stable, satting appropriately, alert, oriented x3, GCS 15], moving all extremities spontaneously. Full physical exam performed and significant for no focal spinal tenderness, no extremity tenderness or deformity Differential includes but is not limited to intracranial traumas thoracic trauma intra-abdominal trauma spine trauma extremity trauma. Workup initiated including Noncon scan of the head, C,T and L-spine, bony pelvis. At this time care handed off to oncoming physician. Silvia Muñiz DO I assumed care of the patient at 0700. Patient CT scans were reviewed and interpreted by myself, CT head showed no acute pathology. CT cervical spine showed no acute pathology. Pelvis x-ray showed no acute pathology. Patient CT scans of the thoracic and lumbar spine showed an old T11 oblique fracture however it appears there is a new extension into T12. Radiology reported concern for possible DISH injury and concern for possible anterior ligamentous injury. Patient has extensive hardware in the back. Given this, I did discuss the case with spine. After discussion with spine, they asked that patient be transferred to the emergency department for further evaluation. Patient was transferred in stable condition. Patient does currently have a back brace that she wears at all times when she is out of bed. Patient only ambulates via wheelchair at baseline. Of note, patient does have significant dementia at baseline, POA is Leah sister who is currently in [place], but son is here and will be occumpaning patient to . Patient also has had multiple falls over the last two weeks, reported 9 in total. Patient was recently accepted to [place] [facility] and was planning to check in today. On exam, patient is otherwise neurovascularly intact and patient has no pain. Procedures <Du Mcmahan MD - Last Filed: 05/07/25 06:56> Risk/Benefits of Procedure(s) Were Explained: Yes Critical Care <Du Mcmahan MD - Last Filed: 05/07/25 06:56> Critical Care Time Critical Care Time: No
--- OUTSIDE RECORDS SUMMARY | 2025-05-07 06:21 | XMS_ITS ---
Author Name Auto Generated, Auto Generated Organization [facility] Address [address] [place] [address] Phone [phone] Care Team Providers Care Air Surveillance Operator Name Role Phone Anjel Bailey Unavailable [phone] Functional Status No Results Mental Status No [...]
--- OUTSIDE RECORDS SUMMARY | 2025-05-07 06:22 | XMS_ITS | Patient Health Record ---
Author Organization [facility] [place] Address [address] [address] Care Team Providers Care Loom Checker Name Role Phone MARLEE MEDINA Primary Care Provider [phone] [id number] Jorge Luis Cote, Dg Unavailable Unavailable Reason For Referral No Information Plan Of Treatment No Information Insurance Providers Payer Name Payer Address Payer Phone Subscriber Number Group Number Insured Name Patient Relationship to Insured Coverage Start Date Coverage End Date [employer] [address] [address] [place] [address] [id number] Kelley Hamm Self - patient is the insured
--- OUTSIDE RECORDS SUMMARY | 2025-05-07 06:23 | XMS_ITS | Clinical Summary ---
Author Organization [facility] Address [address] [place] [address] Care Team Providers Care Biogeographer Name Role Phone Dg Kang MD Primary Care Provider [phone] Amada Rose SPECIAL SKILLS OFFICER Unavailable [phone] Allergies Active Allergy Reactions Criticality Noted Date [...] - Please have patient follow up at [facility] with Neurosurgery NANETTE in 4-6 weeks with AP/Lateral XR of the lumbar spine and AP/Lateral XR of the thoracic spine: [facility] ([facility]) Clinic, [address], 1st floor, [facility] [address] [place] [address] #[phone] HTN (hypertension) 03/03/2025 Overview (03/10/2025): Assessment & [...] Type Department Care Team Description 04/08/2025 Telephone [place] [facility] [address], [address]st [place] [address] Amada Rose APRN HCN - Patient Message 04/06/2025 10:40 AM EDT Office Visit [place] [facility] [address], [address] [place] [address] Amada Rose APRN Closed fracture of eleventh thoracic vertebra with routine healing, unspecified fracture morphology, subsequent encounter (Primary Dx); Fall from standing, initial encounter 04/06/2025 10:03 AM EDT - 04/06/2025 11:59 PM EDT Hospital Encounter [place] Clinic Radiology [address], [address]st [place] [address] Closed fracture of eleventh thoracic vertebra with routine healing, unspecified fracture morphology, subsequent encounter Discharge Disposition: Home or Self Care 04/06/2025 Travel 03/03/2025 Travel 03/02/2025 4:46 PM EDT - 03/10/2025 2:58 PM EDT Hospital Encounter [facility] 9 T[address] [facility] [address] [place] [address] Heron Salinas MD Detelich, MD Amandeep Goodrich, MD Bhupendra Torres Brittany N, MD Bernard, MD Shahrzad Cosme, Bj Barber MD Closed fracture of eleventh thoracic vertebra, unspecified fracture morphology, initial encounter ([facility]) (Primary Dx) Discharge Disposition: [facility] Facility 03/02/2025 Travel 03/02/2025 Orders Only External Location [address] [place] [address] Provider, External 03/02/2025 Orders Only External Location [address] [place] [address] Provider, External from Last 3 Months Social [...] time in the past 12 m [facility], were you homeless or living in a prison (including now)? No 03/05/2025 Utilities Answer Date Recorded In the past 12 months has e [employer], gas, oil, or water company threatened to [...] Visit [place] [facility] [address], [address] [place] [address] Amada Rose, SPECIAL SKILLS OFFICER [address] [place] [address] Health Maintenance Due Date Last Done Comments [facility]-Bone Density Scan 1940 [facility]-Depression Screening 1939 [facility]-Medicare Annual Wellness (AWV) 1939 [facility]-Infant/Child/Adol SDOH Screenings 1939 [facility]-DTaP,Tdap,and Td Vaccine s (1 - Tdap) 1958 [facility]-Zoster Vaccines (1 of 2) 1958 [facility]-AUMIR-40 Vaccine (4 - season) 2024 08/23/2021, 11/16/2020, [...] MD on 04/06/2025 11:13 AM Amada Rose SPECIAL SKILLS OFFICER IMG XR PROCEDURES Final Resu lt [...] MD on 04/06/2025 11:13 AM Amada Rose SPECIAL SKILLS OFFICER IMG XR PROCEDURES Final Resu lt * Urinalysis with reflex microscopic (Culture NOT Included) (03/03/2025 7:59 AM EDT) Color, Urine Yellow LAB URINALYSIS - AUTOMATED METHOD 03/03/2025 8:06 AM EDT [facility] Clarity, Urine Clear LAB URINALYSIS - AUTOMATED METHOD 03/03/2025 8:06 AM EDT [facility] Spec [place], Urine 1.016 1.005 - 1.030 LAB URINALYSIS - AUTOMATED METHOD 03/03/2025 8:06 AM EDT [facility] pH, Urine 6.5 5.0 - 8.0 LAB URINALYSIS - AUTOMATED METHOD 03/03/2025 8:06 AM EDT [facility] Protein, Urine Negative Negative mg/dL LAB URINALYSIS - AUTOMATED METHOD 03/03/2025 8:06 AM EDT [facility] Glucose, Urine Negative Negative mg/dL LAB URINALYSIS - AUTOMATED METHOD 03/03/2025 8:06 AM EDT [facility] Ketones, Urine Negative Negative mg/dL LAB URINALYSIS - AUTOMATED METHOD 03/03/2025 8:06 AM EDT [facility] Blood, Urine Negative Negative LAB URINALYSIS - AUTOMATED METHOD 03/03/2025 8:06 AM EDT [facility] Bilirubin, Urine Negative Negative LAB URINALYSIS - AUTOMATED METHOD 03/03/2025 8:06 AM EDT [facility] Urobilinogen, Urine 0.2 0.2 to 1.0 mg/dL LAB URINALYSIS - AUTOMATED METHOD 03/03/2025 8:06 AM EDT [facility] Leukocytes, Urine Negative Negative LAB URINALYSIS - AUTOMATED METHOD 03/03/2025 8:06 AM EDT [facility] Nitrite, Urine Negative Negative LAB URINALYSIS - AUTOMATED METHOD 03/03/2025 8:06 AM EDT [facility] Urine Urine specimen obtained by clean catch procedure / Unknown Non-blood Collection / Unknown 03/03/2025 7:59 AM EDT 03/03/2025 8:03 AM EDT us Heron Salinas MD LAB URINE ORDERABLES Final R esult [facility] [address] [place] [address] * MR Lumbar Spine wo IV Contrast [...] the inferior endplate and extending into the [id number] disc. *No evidence of fracture or traumatic [...] the inferior endplate and extending into the [id number] disc. *No evidence of fracture or traumatic [...] the inferior endplate and extending into the [id number] disc. *No evidence of fracture or traumatic [...] HIV 1/2 Differentiation (03/02/2025 6:44 PM EDT) [facility] HIV 1 & 2 Antibody/Antigen Screen Non Reactive Non Reactive 03/02/2025 7:48 PM EDT [facility] Comment:Screening for HIV 1 & 2 antibodies, and P24 antigen is NONREACTIVE. No confirmatory testing is required. Blood Venous blood specimen / Unknown Venipuncture / Unknown 03/02/2025 6:44 PM EDT 03/02/2025 7:02 PM EDT us Heron Salinas MD LAB BLOOD ORDERABLES Final R esult [facility] [address] [place] [address] * Light Green Top (03/02/2025 6:44 PM EDT) [facility] Extra Hold for add-ons 03/02/2025 9:02 PM EDT [facility] Comment:Auto resulted. Blood Venous blood specimen / Unknown 03/02/2025 6:44 PM EDT 03/02/2025 6:53 PM EDT us Heron Salinas MD LAB BLOOD ORDERABLES Final R esult Performing Organization Address City/[facility]/ZIP Co de Phone Number [facility] [address] [place] [address] * Hepatitis C Antibody - ED (03/02/2025 6:44 PM EDT) [facility] Hepatitis C Antibody Negative Negative 03/02/2025 7:48 PM EDT [facility] Blood Venous blood specimen / Unknown Venipuncture / Unknown 03/02/2025 6:44 PM EDT 03/02/2025 7:02 PM EDT us Heron Salinas MD LAB BLOOD ORDERABLES Final R esult [facility] [address] [place] [address] * PT-INR (03/02/2025 6:44 PM EDT) [facility] Prothrombin Time 13.1 12.0 - 14.3 sec 03/02/2025 7:04 PM EDT [facility] INR 1.0 0.9 - 1.1 03/02/2025 7:04 PM EDT [facility] Blood Venous blood specimen / Unknown Venipuncture / Unknown 03/02/2025 6:44 PM EDT 03/02/2025 6:49 PM EDT [facility] LAB - 03/02/2025 7:04 PM EDT OPTIMAL INR RANGES FOR PATIENT ON ORAL ANTICOAGULANT THERAPY Prevention of venous thromboembolism INR 2.0 to 3.0 In patients with heart disease: Atrial fibrillation INR 2.0 to 3.0 Valvular heart disease INR 2.0 to 3.0 Tissue heart valves INR 2.0 to 3.0 Mechanical prosthetic valves INR 2.5 to 3.5 Prevention of recurrent NV INR 2.5 to 3.5 us Heron Salinas MD LAB BLOOD ORDERABLES Final R esult [facility] [address] [place] [address] * (ABNORMAL) CBC w/diff (03/02/2025 6:44 PM EDT) [facility] WBC Count 7.31 3.70 - 10.30 10*3/uL LAB HEMATOLOGY METHOD 03/02/2025 6:52 PM EDT [facility] RBC Count 3.91 3.90 - 5.20 10*6/uL LAB HEMATOLOGY METHOD 03/02/2025 6:52 PM EDT [facility] HGB 12.0 11.2 - 15.7 g/dL LAB HEMATOLOGY METHOD 03/02/2025 6:52 PM EDT [facility] HCT 34.7 34.0 - 45.0 % LAB HEMATOLOGY METHOD 03/02/2025 6:52 PM EDT [facility] Platelet Count 161 155 - 369 10*3/uL LAB HEMATOLOGY METHOD 03/02/2025 6:52 PM EDT [facility] MCV 89 79 - 98 fL LAB HEMATOLOGY METHOD 03/02/2025 6:52 PM EDT [facility] MCH 30.7 26.0 - 32.0 pg LAB HEMATOLOGY METHOD 03/02/2025 6:52 PM EDT [facility] MCHC 34.6 30.7 - 35.5 g/dL LAB HEMATOLOGY METHOD 03/02/2025 6:52 PM EDT [facility] RDW 14.3 11.5 - 14.5 % LAB HEMATOLOGY METHOD 03/02/2025 6:52 PM EDT [facility] MPV 9.3 8.8 - 12.5 fL LAB HEMATOLOGY METHOD 03/02/2025 6:52 PM EDT [facility] nRBC 0.0 <=0.0 per 100 WBCs LAB HEMATOLOGY METHOD 03/02/2025 6:52 PM EDT [facility] Differential Type Automated LAB HEMATOLOGY METHOD 03/02/2025 6:52 PM EDT [facility] Neutrophils % 78 % LAB HEMATOLOGY METHOD 03/02/2025 6:52 PM EDT [facility] Lymphocytes % 10 % LAB HEMATOLOGY METHOD 03/02/2025 6:52 PM EDT [facility] Monocytes % 8 % LAB HEMATOLOGY METHOD 03/02/2025 6:52 PM EDT [facility] Eosinophils % 2 % LAB HEMATOLOGY METHOD 03/02/2025 6:52 PM EDT [facility] Basophils % 1 % LAB HEMATOLOGY METHOD 03/02/2025 6:52 PM EDT [facility] Immature Granulocytes % 1 % LAB HEMATOLOGY METHOD 03/02/2025 6:52 PM EDT [facility] Neutrophils Absolute 5.69 1.60 - 6.10 10*3/uL LAB HEMATOLOGY METHOD 03/02/2025 6:52 PM EDT [facility] Lymphocytes Absolute 0.76(L) 1.20 - 3.90 10*3/uL LAB HEMATOLOGY METHOD 03/02/2025 6:52 PM EDT [facility] Monocytes Absolute 0.60 0.30 - 0.90 10*3/uL LAB HEMATOLOGY METHOD 03/02/2025 6:52 PM EDT [facility] Eosinophils Absolute 0.15 0.00 - 0.50 10*3/uL LAB HEMATOLOGY METHOD 03/02/2025 6:52 PM EDT [facility] Basophils Absolute 0.06 0.00 - 0.10 10*3/uL LAB HEMATOLOGY METHOD 03/02/2025 6:52 PM EDT [facility] Immature Granulocytes Absolute 0.05 0.00 - 0.06 10*3/uL LAB HEMATOLOGY METHOD 03/02/2025 6:52 PM EDT [facility] Blood Venous blood specimen / Unknown Venipuncture / Unknown 03/02/2025 6:44 PM EDT 03/02/2025 6:49 PM EDT Narrative [facility] - 03/02/2025 6:52 PM EDT Therapeutic decision making should be based on absolute values, rather than percentages. us Heron Salinas MD LAB BLOOD ORDERABLES Final R esult [facility] [address] [place] [address] * Type and screen (03/02/2025 6:44 PM [...] ORDERABL ES Final Result Performing Organization Address City/[facility]/ZIP Co de Phone Number BLOOD BANK [address] [place] [address], [place] * Magnesium (03/02/2025 6:44 PM EDT) Magnesium, Plasma 1.9 1.9 - 2.4 mg/dL 03/02/2025 7:09 PM EDT [facility] Blood Venous blood specimen / Unknown Venipuncture / Unknown 03/02/2025 6:44 PM EDT 03/02/2025 6:49 PM EDT us Heron Salinas MD LAB BLOOD ORDERABLES Final R esult [facility] [address] [place] [address] * (ABNORMAL) CMP (03/02/2025 6:44 PM EDT) Glucose, Plasma 107(H) 74 - 99 mg/dL 03/02/2025 7:09 PM EDT [facility] BUN, Plasma 24(H) 8 - 23 mg/dL 03/02/2025 7:09 PM EDT [facility] Creatinine, Plasma 1.02 0.60 - 1.10 mg/dL 03/02/2025 7:09 PM EDT [facility] BUN/Creatinine Ratio 24 03/02/2025 7:09 PM EDT [facility] Sodium, Plasma 130(L) 136 - 145 mmol/L 03/02/2025 7:09 PM EDT [facility] Potassium, Plasma 4.8 3.6 - 4.9 mmol/L 03/02/2025 7:09 PM EDT [facility] Chloride, Plasma 96(L) 97 - 107 mmol/L 03/02/2025 7:09 PM EDT [facility] CO2, Plasma 24 22 - 29 mmol/L 03/02/2025 7:09 PM EDT [facility] Anion Gap 10 6 - 16 mmol/L 03/02/2025 7:09 PM EDT [facility] Total Calcium, Plasma 8.8(L) 8.9 - 10.2 mg/dL 03/02/2025 7:09 PM EDT [facility] Total Protein 5.7(L) 6.3 - 7.9 g/dL 03/02/2025 7:09 PM EDT [facility] Albumin, Plasma 3.6 3.5 - 5.2 g/dL 03/02/2025 7:09 PM EDT [facility] AST, Plasma 19 10 - 35 U/L 03/02/2025 7:09 PM EDT [facility] Comment:Hemolyzed, result ma y be falsely increased. ALT, Plasma 25 10 - 35 U/L 03/02/2025 7:09 PM EDT [facility] Alkaline Phosphatase, Plasma 92 46 - 142 U/L 03/02/2025 7:09 PM EDT [facility] Total Bilirubin, Plasma 0.4 0.2 - 1.1 mg/dL 03/02/2025 7:09 PM EDT [facility] eGFRcr 54.0 mL/min/1.7 3m*2 03/02/2025 7:09 PM EDT [facility] Comment:Reported eGFRcr in m L/min/1.73m2 is based the CKD-EPI 2020 equation that does not use a race coefficient. Blood Venous blood specimen / Unknown Venipuncture / Unknown 03/02/2025 6:44 PM EDT 03/02/2025 6:49 PM EDT us Heron Salinas MD LAB BLOOD ORDERABLES Final R esult Performing Organization Address City/[facility]/ZIP Co de Phone Number [facility] [address] [place] [address] * EKG now - STAT (adult) (03/02/2025 6:12 PM EDT) EKG DIAGNOSIS CLASS Abnormal MUSE ECG Ventricular Rate 66 BPM MUSE ECG Atrial Rate 66 BPM MUSE ECG LA Interval 104 ms MUSE ECG QRSD Interval 76 ms MUSE ECG QT Interval 398 ms MUSE ECG QTC Interval 417 ms MUSE ECG P [place] 85 degrees MUSE ECG R [place] -31 degrees MUSE ECG T Wave [place] 9 degrees MUSE ECG Diagnosis Sinus rhythm with short LA MUSE ECG Diagnosis Left axis deviation MUSE ECG Diagnosis Poor R-wave progression Cannot rule out Anterior infarct , age undetermined MUSE ECG Diagnosis Abnormal ECG MUSE ECG Diagnosis Need clinical information and correlation MUSE ECG Diagnosis Confirmed by Mynor Baptiste ([id number]) on 03/02/2025 7:25:29 PM MUSE ECG 03/02/2025 6:12 PM EDT 03/02/2025 7:25 PM EDT us Heron Salinas MD ECG ORDERABLES Final Result Performing Organization Address City/[facility]/ZIP Co de Phone Number MUSE ECG * CT OUTSIDE IMAGES (03/02/2025 1:24 PM EDT) Only the most recent of2 resultswithin the time period is included. Anatomical Region Laterality Modality Computed Tomogra phy 03/02/2025 1:24 PM EDT us External Provider IMG CT PROCEDURES Final Result from Last 3 Months Insurance [facility] MEDICARE MEDICAID-[place] Advance Directives * Full Code (Latest Code Status on File) Date Activated Date Inactivated Comments 03/02/2025 10:47 PM 03/10/2025 4:58 PM Question Answer Comments I have reviewed the capacity from the link above and, if needed, have updated to appropriate status: Yes Care Teams Biogeographer Relationship Specialty Start Date End Date Dg Kang MD [address] [facility] [address] [place] [address] PCP - General 02/03/21 Amada Rose APRN [address] [place] [address] Nurse Practitioner Neurosurgery 04/06/25
--- OUTSIDE RECORDS SUMMARY | 2025-05-07 06:23 | XMS_ITS | Encounter Summary ---
Author Organization Healthcare Address [address] [place] [address] Care Team Providers Care Dry House Operator Name Role Phone Dg Kang MD Primary Care Provider [phone] Amada Rose COORDINATOR MINING PRODUCTS Unavailable [phone] Encounter Details Date Type Department Care Team [...] and Family Not on file 03/05/2025 Attends Judaism Services Not on file 03/05 Active Member [...] any time in the past 12 m [facility], were you homeless or living in [...] 9:20 AM EDT Office Visit [place] [facility] [address] 1st [place] [address] Amada Rose, COORDINATOR [employer] [address] [place] [address] documented as of this encounter Visit Diagnoses Not on filedocumented in this encounter Additional Health Concerns Assessment Noted Time A Body Mass Index follow-up plan has been documented for the patient 04/06/2025 12:14 PM EDT documented as of this encounter Care Teams Dry House Operator Relationship Specialty Start Date End Date Dg Kang MD [facility] [address] [place] [address] PCP - General 02/03/21 Amada Rose APRN [address] [place] [address] Nurse Practitioner Neurosurgery 04/06/25 documented as of this encounter
--- OUTSIDE RECORDS SUMMARY | 2025-05-07 06:23 | XMS_ITS | Encounter Summary ---
Author Organization Healthcare Address [address] [place] [address] Care Team Providers Care Paperhanger Name Role Phone Dg Kang MD Primary Care Provider [phone] Encounter Details Date Type Department Care Team (Late st Contact Info) Description 03/02/2025 Orders Only External Location [address] [place] [address] Provider, External 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 Tobacco Use Types [...] and Family Not on file 03/05/2025 Attends Orthodox Services Not on file 03/05 Active Member [...] any time in the past 12 m [facility], were you homeless or living in a skilled nursing (including now)? No 03/05/2025 Utilities Answer Date Recorded In the past 12 months has th e [employer], gas, oil, or water company threatened to [...] Description 05/18/2025 9:20 AM EDT Office Visit [place] [facility] [address], [address] [place] [address] Amada Rose, BODYBUILDER [address] [place] [address] documented as of this encounter [...] documented as of this encounter Care Teams Paperhanger Relationship Specialty Start Date End Date Dg Kang MD [address] [place] [address] PCP - General 02/03/21 documented as of this encounter
--- OUTSIDE RECORDS SUMMARY | 2025-05-07 06:23 | XMS_ITS | Encounter Summary ---
Author Organization Healthcare Address [address] [place] [address] Care Team Providers Care Rapid Outsole Stitcher Name Role Phone Dg Kang MD Primary Care Provider [phone] Amada Rose BOXING AND PRESSING SUPERVISOR Unavailable [phone] Reason for Visit * Reason Onset Date Comments HCN - Patient Message 04/08/2025 Encounter Details Date Type Department Care Team (Late st Contact Info) Description 04/08/2025 Telephone [place] [facility] [address], [address] [place] [address] Amada Rose, BOXING AND PRESSING SUPERVISOR [address] [place] [address] HCN - Patient Message Social [...] any time in the past 12 m [facility], were you homeless or living in a half-way (including now)? No 03/05/2025 Utilities Answer Date [...] time of day to reach caller: Leah [phone] Note: Please do not reply to this message. Follow-up communication and further actions as a result of this message need to be communicated with the patient directly, if the patient is not active onMyChart. If the patient is active on MyChart, they will receive notification of the communication/outcome via [employer]. documented in this encounter Plan of Treatment Upcoming Encounters Date Type Department Care Team (Late st Contact Info) Description 05/18/2025 9:20 AM EDT Office Visit [place] [facility] [address] [place] [address] Aamda Rose APRN [address] [address] documented as of this encounter Visit Diagnoses Not on filedocumented in this encounter Additional Health Concerns Assessment Noted Time A Body Mass Index follow-up plan has been documented for the patient 04/06/2025 12:14 PM EDT documented as of this encounter Care Teams Rapid Outsole Stitcher Relationship Specialty Start Date End Date Dg Kang MD [address] [facility] [address] [place] [address] PCP - General 02/03/21 Amada Rose APRN [address] [place] [address] Nurse Practitioner Neurosurgery 04/06/25 documented as of this encounter
--- OUTSIDE RECORDS SUMMARY | 2025-05-07 06:23 | XMS_ITS | Encounter Summary ---
Author Organization Healthcare Address [address] [place] [address] Care Team Providers Care Car Designer Name Role Phone Dg Kang MD Primary Care Provider [phone] Encounter Details Date Type Department Care Team (Late st Contact Info) Description 03/02/2025 Orders Only External Location [address] [place] [address] Provider, External 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 Tobacco Use Types [...] and Family Not on file 03/05/2025 Attends Gnosticist Services Not on file 03/05 Active Member [...] any time in the past 12 m [facility], were you homeless or living in a senior care (including now)? No 03/05/2025 Utilities Answer Date Recorded In the past 12 months has th e [employer], gas, oil, or water company threatened to [...] Description 05/18/2025 9:20 AM EDT Office Visit [place] [facility] [address], [address] [place] [address] Amada Rose, WAREHOUSE DELIVERY MANAGER [address] [place] [address] documented as of this encounter [...] documented as of this encounter Care Teams Car Designer Relationship Specialty Start Date End Date Dg Kang MD [address] [place] [address] PCP - General 02/03/21 documented as of this encounter
--- NOTE | 2025-05-07 07:56 | PC.NURSE ---
calling [facility] at this time.
--- NOTE | 2025-05-07 08:50 | PC.NURSE ---
called EMS for transfer. one truck out on a run. they will be here as soon as they can.
== END 2025-05-07 09:12 | disposition other institution (70) ==
PROVIDERS: Emergency Provider Emergency Medicine
DX: S22.089A Unspecified fracture of T11-T12 vertebra, initial encounter for closed fracture (principal); F03.90 Unspecified dementia, unspecified severity, without behavioral disturbance, psychotic disturbance, mood disturbance, and anxiety; R29.6 Repeated falls; W06.XXXA Fall from bed, initial encounter
CPT/HCPCS: 70450; 72125; 72128; 72131; 72192; 99285

== ENCOUNTER 2025-05-10 09:01 | Emergency (ER) | payer MEDICARE, MEDICAID, SELFPAY ==
--- OUTSIDE RECORDS SUMMARY | 2025-04-06 10:03 | XMS_ITS | Encounter Summary ---
Author Organization Healthcare Address [address] [place] [address] Care Team Providers Care It Senior Software Engineer Java Name Role Phone Dg Kang MD Primary Care Provider [phone] Amada Rose YARDING AND FOLDING MACHINE OPERATOR Unavailable [phone] Encounter Details Date Type Department Care Team (Latest Contact Info) Description 04/06/2025 10:03 AM EDT - 04/06/2025 11:59 PM EDT Hospital Encounter [place] [facility] [address], [address] [place] [address] Closed fracture of eleventh thoracic vertebra with [...] and Family Not on file 03/05/2025 Attends Jew Services Not on file 03/05 Active Member [...] any time in the past 12 m [facility], were you homeless or [...] mouth daily. cholecalciferol (Vitamin D-3) 50 MCG (1999 UT) capsule Take 1 capsule by mouth [...] Visit [place] [facility] [address] [place] [address] Amada Rose APRN [address] [place] [address] documented as of this encounter Procedures Procedure [...] MD on 04/06/2025 11:13 AM Amada Rose YARDING AND FOLDING MACHINE OPERATOR IMG XR PROCEDURES Final Resu lt * [...] documented as of this encounter Care Teams It Senior Software Engineer Java Relationship Specialty Start Date End Date Dg Kang MD [address] [facility] [address] [place] [address] PCP - General 02/03/21 Amada Rose APRN [address] [place] [address] Nurse Practitioner Neurosurgery 04/06/25 documented as of this encounter
--- OUTSIDE RECORDS SUMMARY | 2025-04-06 10:40 | XMS_ITS | Encounter Summary ---
Author Organization Healthcare Address [address] [place] [address] Care Team Providers Care Digital Marketing Executive Name Role Phone Dg Kang MD Primary Care Provider [phone] Amada Rose MINERAL RESOURCES INSPECTOR Unavailable [phone] Encounter Details Date Type Department Care Team (Late st Contact Info) Description 04/06/2025 10:40 AM EDT Office Visit [place] [facility] [address], [address] [place] [address] Amada Rose, MINERAL RESOURCES INSPECTOR [address] [place] [address] Closed fracture of eleventh thoracic [...] and Family Not on file 03/05/2025 Attends [employer] Services Not on file 03/05 Active Member [...] any time in the past 12 m [facility], were you homeless or living in a retirement (including now)? No 03/05/2025 Utilities Answer Date Recorded In the past 12 months has th e electric, gas, [employer], or water [employer] threatened to shut off services in your [...] / 5/5 C7: Triceps 5/5 5/5 C8: Bonded Strand Operator /5 5/5 T1: Intrinsics /5 5/5 Lower [...] with return appointment reminder. Amada Rose APRN [facility] Department of Neurosurgery This note was dictated using voice to text software and may contain errors 40 minutes was spent reviewing previous documentation and imaging, completion of today's documentation, [id number] visit, care coordination and planning [1] Past [...] Description 05/18/2025 9:20 AM EDT Office Visit [place] [facility] [address] [place] [address] Amada Rose APRN [id number] [place] [address] documented as of this encounter Results * [...] on 04/06/2025 11:13 AM us Amada Rose MINERAL RESOURCES INSPECTOR IMG XR PROCEDURES Final Resu lt * [...] documented as of this encounter Care Teams Digital Marketing Executive Relationship Specialty Start Date End Date Dg Kang MD [facility] [place] [address] PCP - General 02/03/21 Amada Rose APRN [address] [facility] [address] [place] [address] Nurse Practitioner Neurosurgery 04/06/25 documented as of this encounter
--- OUTSIDE RECORDS SUMMARY | 2025-05-07 10:06 | XMS_ITS | Encounter Summary ---
Author Organization Healthcare Address [address] [place] [address] Care Team Providers Care Safety Risk Lead Name Role Phone Dg Kang MD Primary Care Provider [phone] Amada Rose REGISTERED DIETICIAN Unavailable [phone] Reason for Visit * Reason Comments Fall * Auth/Cert (Routine) Specialty Diagnoses / Procedures Referred By Ton willingham Referred To Contact Diagnoses new fracture from falls [facility] [address] [place] [address] Phone: tel: [facility] [address] [place] [address] Phone: tel: Referral ID Status Reason Start Date Expiration Date Visits Re quested Visits Authorized [id number] 1 1 Encounter Details Date Type Department Care Team (Latest Contact Info) Description 05/07/2025 10:06 AM EDT - 05/08/2025 8:50 PM EDT Hospital Encounter [facility] [address] [place] [address] Anjel Medina MD [address] [place] [address] Ki White MD [address] [place] [address] Colten Rod MD [address] [place] [address] Mynor Pedersen, DO [address] [place] [address] Fall, initial encounter (Primary Dx); Closed fracture of eleventh thoracic vertebra, unspecified fracture morphology, initial encounter ([facility]) Discharge Disposition: Home or Self Care Social [...] any time in the past 12 m [facility], were you homeless or [...] bed. Please plan to transition patient to retirement at [facility] as planned prior to arrival to the [...] name and Address: Dg Kang MD [address] [facility] [address] / [place] [id number] Referring provider name and address: Antonino Silvia Antonella, DO [address] [place] [address] Chief Concern, Brief History of Present Illness, and Hospital Course 85 y.o. with pertinent medical history of dementia, known T11 fracture from 02/2025, who is presenting from OSH with concerns of worsening T11/T12 injury. Patient was noted to have a ground level fallat home. Upon transferred to [facility] with EMS, patient was grimacing in pain however denied pain verbally. Of note, patient was planning to transfer to [facility] in [place] prior to admission. patient was diagnosed with [...] comfortable with assisting patient with transferred to retirement independently despite offering case management services. Patient [...] bed. Please plan to transition patient to retirement at [facility] as planned prior to arrival to the emergency department for continued medical care. If the patient develops worsening pain, numbness or tingling, mental status changes, please return to the ED for repeat evaluation Outpatient Follow-Up Future Appointments Date Time Provider Department Center 05/18/2025 9:20 AM Amada Rose APRN [facility] Test Results Pending At Discharge [...] Behavior normal. Discharge Disposition/Condition Disposition: Nursing facility ([facility]) [facility] argenis Mann Condition: Stable (s/sx potential problems [...] Intervention: Promote Injury-Free Environment Flowsheets (Taken 05/08/2025 0754) Safety Promotion/Fall Prevention: clutter-free environment maintained activity [...] Patient lives with grandchild who is her steel erector apprentice. 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 Reports more than 10 falls in the last three months. Patient has a hard shell brace that was not on at the time of fall but reports that she normally wears it when getting outof bed. Family at bedside stated they had secured a bed at [facility] and was pending admission today. [phone]. EASI-0 MNA-NC Geriatric Triage Risk Screening Tool [...] offer additional resources at request. Ml Osorio ED-violent crimes detective * ED Triage Notes - Kina May [...] Visit [place] [facility] [address] [place] [address] Amada Rose, REGISTERED DIETICIAN [address] [place] [address] documented as of this encounter [...] ECG Atrial Rate 90 BPM MUSE ECG NY Interval 136 ms MUSE ECG QRSD Interval 70 ms MUSE ECG QT Interval 322 ms MUSE ECG QTC Interval 393 ms MUSE ECG P Harvey 69 degrees MUSE ECG R Harvey -42 degrees MUSE ECG T Wave Harvey -47 degrees MUSE ECG Diagnosis Sinus rhythm [...] MUSE ECG Diagnosis Confirmed by Stevie Davison ([id number]) on 05/09/2025 9:43:28 AM MUSE ECG 05/08/2025 11:4 5 AM EDT 05/09/2025 9:43 AM EDT Colten Rod MD ECG ORDERABLES Final Resu lt MUSE ECG * Gold Top (05/08/2025 11:26 AM EDT) Pathologist [facility] [place] Extra Hold for add-ons 05/08/2025 2:01 PM EDT [facility] Comment:Auto resulted. Blood Venous blood specimen / Unknown 05/08/2025 11:26 AM EDT 05/08/2025 11:45 AM EDT Colten Rod MD LAB BLOOD ORDERABLES Final Result [facility] [address] [place] [address] * Lavender Top (05/08/2025 11:26 AM EDT) Pathologist [facility] Extra Hold for add-ons 05/08/2025 2:01 PM EDT [facility] Comment:Auto resulted. Blood Venous blood specimen / Unknown 05/08/2025 11:26 AM EDT 05/08/2025 11:45 AM EDT Colten Rod MD LAB BLOOD ORDERABLES Final Result Performing Organization Address City/[facility]/ZIP Co de Phone Number [facility] [address] [place] [address] * Light Blue Top (05/08/2025 11:26 AM EDT) Extra Hold for add-ons 05/08/2025 2:01 PM EDT [facility] Comment:Auto resulted. Blood Venous blood specimen / Unknown 05/08/2025 11:26 AM EDT 05/08/2025 11:45 AM EDT Colten Rod MD LAB BLOOD ORDERABLES Final Result Performing Organization Address City/[facility]/ZIP Co de Phone Number [facility] [address] [place] [address] * (ABNORMAL) Basic Metabolic Panel, Plasma (05/08/2025 11:26 AM EDT) Glucose, Plasma 105(H) 74 - 99 mg/dL 05/08/2025 12:01 PM EDT [facility] BUN, Plasma 12 8 - 23 mg/dL 05/08/2025 12:01 PM EDT [facility] Creatinine, Plasma 0.82 0.60 - 1.10 mg/dL 05/08/2025 12:01 PM EDT [facility] BUN/Creatinine Ratio 15 05/08/2025 12:01 PM EDT [facility] Sodium, Plasma 137 136 - 145 mmol/L 05/08/2025 12:01 PM EDT [facility] Potassium, Plasma 3.7 3.6 - 4.9 mmol/L 05/08/2025 12:01 PM EDT [facility] Chloride, Plasma 103 97 - 107 mmol/L 05/08/2025 12:01 PM EDT [facility] CO2, Plasma 22 22 - 29 mmol/L 05/08/2025 12:01 PM EDT [facility] Anion Gap 12 6 - 16 mmol/L 05/08/2025 12:01 PM EDT [facility] Total Calcium, Plasma 9.0 8.9 - 10.2 mg/dL 05/08/2025 12:01 PM EDT [facility] eGFRcr 69.8 mL/min/1.7 3m*2 05/08/2025 12:01 PM EDT [facility] Comment:Reported eGFRcr in m L/min/1.73m2 is based the CKD-EPI 2020 equation that does not use a race coefficient. Blood Venous blood specimen / Unknown Venipuncture / Unknown 05/08/2025 11:26 AM EDT 05/08/2025 11:40 AM EDT us Colten Rod MD LAB BLOOD ORDERABLES Final Result [facility] [address] [place] [address] * MR Lumbar Spine wo IV Contrast [...] Lawson on 05/07/2025 at 2145 hours by [employer]. Drafted by Bebe Burns MD on 05/07/2025 [...] spine CT performed 14 hours prior at [facility] Thoracic and lumbar spine MRI [...] is severe stenosis at right T1-2 and pxuaqgwu-bp-yorkub stenosis at several mid thoracic levels. Prevertebral [...] spine CT performed 14 hours prior at [facility] Thoracic and lumbar spine MRI 03/03/2025 FINDINGS: Thoracic Spine: Diagnostic Quality: Adequate. Alignment: The bony alignment is normal. Marrow, Vertebrae and Intervertebral Discs: Linear T2 hyperintensity inthe anterior-inferior corner of the T11 vertebral body is consistent withfracture, confirmed on recent outside CT scan. Vertebral body heights arenormal. Multilevel disc desiccation and decreased disc heights. Avid G0vrkciwtjhwrcos within the T11-12 and T12-L1 disc spaces [...] narrowing issevere stenosis at right T1-2 and gzcpmyac-mq-bimewh stenosis at severalmid thoracic levels. Prevertebral and [...] Lawson on 05/07/2025 at 2145 hours by [employer]. Drafted by Bebe Burns MD on 05/07/2025 [...] spine CT performed 14 hours prior at [facility] Thoracic and lumbar spine MRI [...] is severe stenosis at right T1-2 and uadfqldy-nm-tejfub stenosis at several mid thoracic levels. Prevertebral [...] spine CT performed 14 hours prior at [facility] Thoracic and lumbar spine MRI 03/03/2025 FINDINGS: Thoracic Spine: Diagnostic Quality: Adequate. Alignment: The bony alignment is normal. Marrow, Vertebrae and Intervertebral Discs: Linear T2 hyperintensity inthe anterior-inferior corner of the T11 vertebral body is consistent withfracture, confirmed on recent outside CT scan. Vertebral body heights arenormal. Multilevel disc desiccation and decreased disc heights. Avid B9ertpflivxgiqfd within the T11-12 and T12-L1 disc spaces [...] narrowing issevere stenosis at right T1-2 and ronjtgbm-ne-lhiknx stenosis at severalmid thoracic levels. Prevertebral and [...] Ja Lawson on 05/07/2025 at 2145 hours [employer] message. Drafted by Bebe Burns MD on [...] No metallic density noted in the visualized tljeg-rl-qwhr. ABDOMEN: Nonobstructive bowel gas pattern. L2-S1 posterior spinal fusion hardware. Otherwise, no metallic density noted in the visualized kgdzf-zb-arwo. CRITICAL RESULT: No. COMMUNICATION: Per this written [...] effusion. No metallic density noted in the uoyglajthcafmvy-lq-bvof. ABDOMEN: Nonobstructive bowel gas pattern. L2-S1 posterior spinal fusion hardware. Otherwise, no metallic densitynoted in the visualized uunoo-ct-zfit. CRITICAL RESULT: No. COMMUNICATION: Per this written [...] No metallic density noted in the visualized pymis-za-emso. ABDOMEN: Nonobstructive bowel gas pattern. L2-S1 posterior spinal fusion hardware. Otherwise, no metallic density noted in the visualized czflp-yl-etbo. CRITICAL RESULT: No. COMMUNICATION: Per this written [...] effusion. No metallic density noted in the jbrlanswlifsrdy-ty-zgqd. ABDOMEN: Nonobstructive bowel gas pattern. L2-S1 posterior spinal fusion hardware. Otherwise, no metallic densitynoted in the visualized cebtj-rl-mjnk. CRITICAL RESULT: No. COMMUNICATION: Per this written [...] thoracic vertebra, unspecified fracture morphology, initial encounter ([facility]) documented in this encounter Administered Medications Inactive [...] on 05/08/25 at 0900, Until Discontinued, Routine atorvastatin (Lipitor) tablet 10 mg 10 mg, Oral, Nightly, First dose on 05/08/25 at 2100, Until Discontinued, Routine bisacodyl (Dulcolax) suppository 10 mg 10 mg, Rectal, Daily, First dose on 05/08/25 at 1130, Until Discontinued, Routine Given 05/08/2025 11:58 AM EDT 10 mg gabapentin (Neurontin) capsule 300 mg 300 mg, Oral, 2 times daily, First dose on 05/08/25 at 0900, Until Discontinued, Routine Given 05/08/2025 9:22 AM EDT 300 mg pantoprazole (Protonix) EC tablet 40 mg 40 mg, Oral, Daily, First dose on 05/08/25 at 0900, Until Discontinued, Routine Given 05/08/2025 9:22 AM EDT 40 mg sodium chloride 0.9 % flush 10 mL 10 mL, Intravenous, Every 12 hours, First dose on Sat05/07/25 at 1420, Until Discontinued, Routine Given 05/07/2025 3:34 PM EDT 10 mL sodium chloride 0.9 % flush 10 mL 10 mL, Intravenous, As needed, Starting on Sat05/07/25 at 1413, Until Sat05/08/25 at 2342, Routine, line care sodium phosphate [...] on 05/08/25 at 0900, Until Discontinued, Routine 09 (Not Given - Provider: Betty Ch RN [...] Discontinued, Routine 1534 (Given - Provider: Sid Baker RN) 0220 (Canceled Entry - Provider: Slime Santacruz RN)1719 (Not Given - Provider: Betty Ch RN [...] documented as of this encounter Care Teams Safety Risk Lead Relationship Specialty Start Date End Date Dg Kang MD [facility] [address] [place] [address] PCP - General 02/03/21 Amada Rose APRN [id number] [place] [id number] Nurse Practitioner Neurosurgery 04/06/25 documented as of this encounter
[2025-05-10] VITALS (7 sets, daily range): BP systolic 115–141; BP diastolic 60–71; PULSE 63–75; RESP 16–19; TEMP 36.4; O2SAT 96–97; BMI 28.1
--- NOTE | 2025-05-10 09:03 | ECG_ITS ---
APPROVED REPORT Exam: Resting ECG HR:65 bpm ECG Measurements Heart Rate 65 AXES IL 148 P 51 QRSd 88 QRS -30 QT 415 T -2 QTc 427 Conclusion Normal sinus rhythm Left axis Normal intervals NO STEMI Electronically signed by : Dann Diaz, 05/10/2025 17:27:27
--- NOTE | 2025-05-10 09:08 | CT_ITS ---
FINAL REPORT TECHNIQUE: Axial images were obtained of the thoracic spine by computed tomography. Coronal and sagittal reconstruction process performed. This study was performed with techniques to keep radiation doses as low as reasonably achievable (ALARA). Individualized dose reduction techniques using automated exposure control or adjustment of mA and/or kV according to the patient's size were employed. CLINICAL HISTORY: Fall COMPARISON: 05/07/2025 FINDINGS: There is fusion hardware in the upper lumbar spine. There are advanced hypertrophic changes of degenerative disc disease throughout the mid and lower thoracic spine. There is a stable oblique fracture through the anterior endplate of the T11 vertebra with sclerotic margins, well seen on images 45-56 of series 1002. Prominent posterior osteophyte formation is noted throughout the mid and lower thoracic spine, particularly evident at the T10-11 level. There is endplate hypertrophy at T10-11 demonstrating moderate spinal canal compromise and bilateral neural foraminal narrowing. IMPRESSION: Hypertrophic changes most evident at T10-11. Stable T11 vertebral fracture. No acute bony abnormality. Reviewed, Interpreted and Dictated by Gerardo Kim MD Transcribed by Stefany Magana Authenticated and [facility]
--- NOTE | 2025-05-10 09:08 | CT_ITS ---
FINAL REPORT TECHNIQUE: Axial images were obtained of the cervical spine by computed tomography. Coronal and sagittal reconstruction process performed. This study was performed with techniques to keep radiation doses as low as reasonably achievable (ALARA). Individualized dose reduction techniques using automated exposure control or adjustment of mA and/or kV according to the patient's size were employed. CLINICAL HISTORY: Fall COMPARISON: 06/17/2023 FINDINGS: CT CERVICAL SPINE: Cervical vertebrae show normal height. There is moderate disc space narrowing present at the C5-6 and C6-7 levels. There is no malalignment. The facets are properly aligned. C2-3: No evidence of significant canal stenosis or neural foraminal narrowing. C3-4: Moderate facet sclerosis is present with endplate hypertrophy and moderate bilateral neural foraminal narrowing. C4-5: Endplate hypertrophy is present eccentric to the left, with bilateral facet hypertrophy and severe left neuroforaminal narrowing. C5-6: Endplate hypertrophy is present with moderate right and mild left neural foraminal narrowing. C6-7: Endplate hypertrophy is present with mild central canal stenosis and moderate bilateral neural foraminal narrowing. C7-T1: No evidence of significant canal stenosis or neural foraminal narrowing. IMPRESSION: No fracture. Multilevel degenerative disease is present, with severe left neural foraminal narrowing at the C4-5 level and moderate neuroforaminal narrowing at multiple levels. Reviewed, Interpreted and Dictated by Gerardo Kim MD Transcribed by Corina Isbell Authenticated and [facility]
--- NOTE | 2025-05-10 09:08 | XR_ITS ---
FINAL REPORT CLINICAL HISTORY: Fall COMPARISON: 05/07/2025 FINDINGS: SINGLE VIEW PELVIS: A single view of the pelvis was obtained. There is no acute fracture or dislocation. Vizualized joint spaces are normally aligned. There is moderately advanced joint space narrowing bilaterally. There is subchondral sclerosis and osteophyte formation noted. Soft tissues are unremarkable. IMPRESSION: Moderate changes of osteoarthritis without acute bony abnormality. Reviewed, Interpreted and Dictated by Gerardo Kim MD Transcribed by Anne Kwon Authenticated and [facility]
--- NOTE | 2025-05-10 09:08 | XR_ITS ---
FINAL REPORT CLINICAL HISTORY: chest pain , fall COMPARISON: 06/17/2023 FINDINGS: The heart size is normal. The mediastinum is normal. There is no focal infiltrate or edema. There are no pleural effusions. There is no pneumothorax. There is no osseous abnormality. IMPRESSION: No acute cardiopulmonary process Reviewed, Interpreted and Dictated by Gerardo Kim MD Transcribed by Stefany Magana Authenticated and [facility]
--- NOTE | 2025-05-10 09:08 | CT_ITS ---
FINAL REPORT TECHNIQUE: Axial images were obtained of the lumbar spine by computed tomography. Coronal and sagittal reconstruction process performed. This study was performed with techniques to keep radiation doses as low as reasonably achievable (ALARA). Individualized dose reduction techniques using automated exposure control or adjustment of mA and/or kV according to the patient''s size were employed. CLINICAL HISTORY: Fall COMPARISON: 05/07/2025 FINDINGS: There is a lumbar scoliosis convex to the left measuring 10 degrees. Posterior fusion hardware bridges L1 through S1. Vacuum disc phenomenon is noted at T12-L1 and L5-S1. There is an oblique fracture through the inferior anterior T11 vertebra with sclerotic margins. T10-11: A prominent posterior osteophyte formation. Moderate spinal canal compromise. Moderate bilateral neural foraminal narrowing. T11-12: Mild diffuse disc bulge. T12-L1: Moderate diffuse disc bulge. Endplate hypertrophy. Moderate bilateral neural foraminal narrowing. L1-2: Unremarkable. L2-3: Unremarkable. L3-4: Mild endplate hypertrophy eccentric to the right. Bilateral facet hypertrophy. Mild bilateral neural foraminal narrowing. L4-5: Mild endplate hypertrophy. Mild bilateral neural foraminal narrowing. L5-S1: Moderate endplate hypertrophy eccentric to the left. Bilateral facet hypertrophy. Moderate right and moderate to high-grade left neural foraminal narrowing. IMPRESSION: Long segment fusion. Hypertrophic changes most evident at T10-11. Stable T11 vertebral fracture. Neural foraminal compromise most evident on the left at L5-S1. Reviewed, Interpreted and Dictated by Gerardo Kim MD Transcribed by Stefany Magana Authenticated and [facility]
--- NOTE | 2025-05-10 09:08 | CT_ITS ---
FINAL REPORT TECHNIQUE: multiple axial CT images were performed from the foramen magnum to the vertex without enhancement. This study was performed with techniques to keep radiation doses as low as reasonably achievable (ALARA). Individualized dose reduction techniques using automated exposure control or adjustment of mA and/or kV according to the patient's size were employed. CLINICAL HISTORY: Fall COMPARISON: 05/07/2025 FINDINGS: The ventricles are enlarged in proportion to the degree of atrophy. There is moderate diffuse cortical atrophy. There is periventricular white matter change likely related to small vessel disease. There is no evidence of hemorrhage. No masses are identified. No extra-axial fluid is seen. The sinuses are normal. IMPRESSION: Atrophy and chronic changes without acute process. Reviewed, Interpreted and Dictated by Gerardo Kim MD Transcribed by Corina Isbell Authenticated and [facility]
--- NOTE | 2025-05-10 09:12 | ED_ITS ---
Discharge Plan Disposition Patient Disposition: Home, Self-Care Condition: Good Prescriptions Prescriptions: No Action diclofenac sodium 1 % gel 4 g topical QID PRN (Reason: Arthritis pain of knee) Qty: 100 5RF Rx Instructions: apply to single knee, ankle, foot; for foot includes sole/toes/top of foot lactulose 10 gram/15 mL solution 20 g PO BID PRN (Reason: constipation) Qty: 3785 3RF levalbuterol HCl 1.25 mg/3 mL solution for nebulization See Rx Instructions .ROUTE .COMPLEX Qty: 270 1RF Dose Instruction: INHALE THE CONTENTS OF 1 VIAL VIA NEBULIZER THREE TIMES DAILY NEEDED FOR ASTHMA Rx Instructions: INHALE THE CONTENTS OF 1 VIAL VIA NEBULIZER THREE TIMES DAILY NEEDED FOR ASTHMA gabapentin 300 mg capsule 600 mg PO HS Qty: 60 3RF memantine [Namenda] 10 mg tablet 10 mg PO BID Qty: 60 5RF losartan 100 mg tablet See Rx Instructions .ROUTE .COMPLEX Qty: 90 1RF Dose Instruction: TAKE ONE TABLET BY MOUTH EVERY DAY Rx Instructions: TAKE ONE TABLET BY MOUTH EVERY DAY primidone 250 mg tablet See Rx Instructions .ROUTE .COMPLEX Qty: 90 1RF Dose Instruction: TAKE ONE TABLET BY MOUTH EVERY DAY AT BEDTIME Rx Instructions: TAKE ONE TABLET BY MOUTH EVERY DAY AT BEDTIME simvastatin 20 mg tablet See Rx Instructions .ROUTE .COMPLEX Qty: 90 1RF Dose Instruction: TAKE ONE TABLET BY MOUTH EVERY DAY AT BEDTIME Rx Instructions: TAKE ONE TABLET BY MOUTH EVERY DAY AT BEDTIME pantoprazole 40 mg tablet,delayed release (DR/EC) See Rx Instructions .ROUTE .COMPLEX Qty: 90 1RF Dose Instruction: TAKE ONE TABLET BY MOUTH EVERY DAY Rx Instructions: TAKE ONE TABLET BY MOUTH EVERY DAY propranolol 60 mg tablet See Rx Instructions .ROUTE .COMPLEX Qty: 120 1RF Dose Instruction: TAKE ONE TABLET BY MOUTH TWICE DAILY Rx Instructions: TAKE ONE TABLET BY MOUTH TWICE DAILY Referrals Follow up/Referrals: Provider,Referral, MD [Primary Care Provider, Medical] - See instructions Activity Restrictions/Add. Instructions Additional Instructions/Restrictions: Please return if you have any new or worsening symptoms. Clinical Impressions Clinical Impression: Fall Qualifiers: Encounter type: initial encounter Qualified Code(s): W19.XXXA - Unspecified fall, initial encounter Print Language Print Language: Cypriot Discharge ED Provider: Dann Diaz Adult HPI General Chief complaint: Fall Stated complaint: fall Time Seen by Provider: 05/10/25 09:02 History of Present Illness HPI narrative: This is an 85-year-old female patient with past medical history of hypertension, hyperlipidemia, GERD, Alzheimer's dementia, recurrent falls, who is presenting to the emergency department today from her senior living for evaluation of a fall. At that time she had a known existing T11 fracture, but she underwent a CT scan of the thoracic spine again and there was extension of this fracture into the T12 vertebrae. She was transferred to and was evaluated by their [facility] team who discharged her with a thoracic spine brace. Per prior chart review from her family medicine provider, the patient often forgets that she is unable to walk well so she frequently stands up out of bed on her own at home and she ends up falling. This morning the patient was in the senior living and she got up out of bed independently on her own and walked into the bathroom and suffered a mechanical fall. This fall was not witnessed. The patient tells me she did not lose consciousness, however it is hard to trust his history. At the current time she is not complaining of pain anywhere on her body Related Data Previous Rx's ?Medication ?Instructions ?Recorded diclofenac sodium 1 % topical gel 4 g topical QID PRN Arthritis pain 04/29/24 of knee #100 grams levalbuterol HCl 1.25 mg/3 mL See Rx Instructions .Rou te 09/25/24 solution for nebulization .COMPLEX #270 mL gabapentin 300 mg capsule 600 mg (2 x 300 mg) PO HS #6 0 caps 03/04/25 memantine 10 mg tablet (Namenda) 10 mg PO BID #60 tabs 03/04/25 losartan 100 mg tablet See Rx Instructions .Route 0 04/01/25 .COMPLEX #90 tabs primidone 250 mg tablet See Rx Instructions .Route 0 04/01/25 .COMPLEX #90 tabs simvastatin 20 mg tablet See Rx Instructions .Route 0 04/01/25 .COMPLEX #90 tabs lactulose 10 gram/15 mL oral 20 g (30 mL) PO BID PRN 0 04/29/25 solution constipation #3,785 mL pantoprazole 40 mg tablet,delayed See Rx Instructions .Route 05/06/25 release .COMPLEX #90 tabs propranolol 60 mg tablet See Rx Instructions .Route 0 05/06/25 .COMPLEX #120 tabs Allergies Allergy/AdvReac Type Severity Reaction Status Date / Time glucosamine Allergy Unknown BOWELS Verified 04/29/25 11:01 BLEEDING Sulfa (Sulfonamide Allergy Unknown Verified 04/29/25 11:01 Antibiotics) donepezil Allergy Verified 04/29/25 11:01 Penicillins Allergy Verified 04/29/25 11:01 sulfamethoxazole AdvReac Verified 04/29/25 11:01 [facility] Disclaimer: The information contained in this section may have been updated after the patient was seen, as this information can be updated by other users. 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) Smoking Status: Unknown if ever smoked alcohol intake: never substance use type: denies use current occupational status: other Travel in the last 8 weeks?: None household members: none housing: house current occupational exposures/hazards: No caffeine: No Have you lived/traveled outside US in past 30 days?: No Contact w/someone who lives/traveled outside US past 30 days?: No Exposure to someone with infectious disease in past 14 days?: No Do you have a fever (greater than 100.4 F or 38 C)?: No Have you tested positive for COVID-19?: No Exposed to someone with COVID-19 in past 14 days?: No Do you have a sore throat?: No Do you have a cough?: No Do you have any weakness?: No Do you have any diarrhea?: No Are you experiencing any unusual bleeding?: No Do you have any muscle aches/pain?: No Do you have any abdominal pain?: No Are you experiencing loss of taste or smell?: No Other Medical History Have you received the Flu Vaccine for this season: Yes Have you received the Pneumonia Vaccine: Yes ROS Obtained: Yes Systems reviewed as appropriate & no additional complaints except as documented Physical Exam General General appearance: other (See MDM) Respiratory Respiratory exam: Present other (See MDM) Cardiovascular Cardiovascular exam: Present other (See MDM) Neurological Exam Neurological exam: Present other (See MDM) Medical Decision Making Medical Records Medical records reviewed: Yes I reviewed the patient's medical records. Screening: Per USPSTF and CDC recommendations, given the prevalence of disease in our region, it is our hospital?s policy to screen for HIV and viral Hepatitis for all patients aged 18 and over and those with ongoing risk factors. Dano Inquiry Pt receiving controlled substance: No Dano was queried for this patient: No Vital Signs: 05/10/25 09:00 05/10/25 09:04 05/10/25 09:04 Temperature 97.5 F L 97.5 F L Temperature Source Oral Pulse Rate 64 66 Pulse Rate [Right] 66 Respiratory Rate 19 16 16 Blood Pressure 141/66 H 137/71 Blood Pressure [Right Arm] 137/71 Blood Pressure Mean 78 Blood Pressure Mean [Right Arm] 93 02 Sat by Pulse Oximetry 96 96 96 Oxygen Delivery Method 05/10/25 09:17 05/10/25 09:49 05/10/25 10:00 Temperature Temperature Source Pulse Rate 66 63 Pulse Rate [Right] Respiratory Rate Blood Pressure 136/67 132/66 Blood Pressure [Right Arm] Blood Pressure Mean 90 Blood Pressure Mean [Right Arm] 02 Sat by Pulse Oximetry 96 97 96 Oxygen Delivery Method Room Air 05/10/25 10:30 Temperature Temperature Source Pulse Rate 65 Pulse Rate [Right] Respiratory Rate Blood Pressure 119/60 Blood Pressure [Right Arm] Blood Pressure Mean Blood Pressure Mean [Right Arm] 02 Sat by Pulse Oximetry 96 Oxygen Delivery Method Orders (Tests/Meds): ORDERS Category Date Time Status CT cervical spine wo con Stat Cat Scan 05/10/25 09:[address] head/brain wo con Stat Cat Scan 05/10/25 09:[address] lumbar spine wo con Stat Cat Scan 05/10/25 09:[address] thoracic spine wo con Stat Cat Scan 05/10/25 09:08 Completed XR chest portable Stat Exams 05/10/25 09:08 Completed XR pelvis 1-2V Stat Exams 05/10/25 09:08 Completed ECG Data Tracing #1: I reviewed this ECG and interpreted as documented below: EKG personally interpreted by me demonstrates normal sinus rhythm with a rate of 65 bpm, left axis, no IL prolongation, narrow QRS, no QTc prolongation. No ST elevation or depression. No overt signs of ischemia or arrhythmia Medical Decision Narrative: In summary, this is an 85-year-old female patient who is presenting to the emergency department today for evaluation of an unwitnessed fall at her senior living. Comorbidities include hypertension, hyperlipidemia, recurrent falls, and Alzheimer's dementia in which she frequently forgets that she is unable to walk and she gets up out of bed and falls. On initial evaluation of the patient she appears to be appropriately demented. On primary survey her airway is intact, she has bilateral breath sounds, and she has good distal pulses. I did proceed with a secondary survey and found that the patient had no scalp lacerations, hematomas, or abrasions. No midface instability or jaw malocclusion. No nasal septal hematoma. No evidence of hemotympanum. No oral lacerations. She is in a c-collar, however she has no C- spine, T-spine, or L-spine tenderness. No anterior chest wall tenderness. No abdominal wall tenderness. Pelvis is stable. No deformities of the extremities and all extremities are nontender to palpation Differential diagnosis includes intracranial hemorrhage, skull fracture, cervical spine fracture, thoracic fracture, lumbar spine fracture, pelvic fracture, among others Initial workup included chest x-ray, pelvic x-ray, as well as CT scans of the head and axial spine. X-rays were personally turbid by me and demonstrate no acute displaced rib fractures or pulmonary contusions. There is no fracture of the pelvis appreciated on my read. Official radiology read is in agreement and states that there is no acute Intermatic. CT scan of the head and spines were interpreted by radiology and demonstrate no acute intracranial hemorrhages or acute fracture of the spine. They do note the chronic appearing T11 fracture. I have cleared the patient c-collar. She remains resting comfortably no acute distress. Her family has arrived to the emergency department and corroborates history that this was an unwitnessed fall at the senior living. At this time the patient remains asymptomatic and at her baseline mental status. She is medically clear for return to her senior living facility. Critical Care Critical Care Time Critical Care Time: No
--- OUTSIDE RECORDS SUMMARY | 2025-05-10 09:25 | XMS_ITS ---
Author Name Auto Generated, Auto Generated Organization [facility] ator Address [address] [place] [address] Phone [phone] Care Team Providers Care Concrete Tile Machine Operator Name Role Phone Anjel Bailey Unavailable [phone] Functional Status No Results Mental Status No [...]
--- OUTSIDE RECORDS SUMMARY | 2025-05-10 09:27 | XMS_ITS | Encounter Summary ---
Author Organization Healthcare Address [address] [place] [address] Care Team Providers Care Insulator Tester Name Role Phone Dg Kang MD Primary Care Provider [phone] Amada Rose ROLLER HAND Unavailable [phone] Reason for Visit * Reason Onset Date Comments HCN - Patient Message 04/08/2025 Encounter Details Date Type Department Care Team (Late st Contact Info) Description 04/08/2025 Telephone [facility] [address] [place] [address] Amada Rose, ROLLER HAND [address] [place] [address] HCN - Patient Message Social [...] time in the past 12 m [facility], were you homeless or living in a half-way (including now)? No 03/05/2025 Utilities Answer Date Recorded In the past 12 months has th e [employer], Thubrikar Aortic Valve, oil, or water [employer] threatened to shut off services in your home? No 03/05/2025 Comments Unknown Sex and Gender Information Value Date Recorded Sex Assigned at Not on file Legal Sex Female 6:08 PM EDT Gender Identity Not on file Sexual Orientation Not on file documented as of this encounter Miscellaneous Notes * Telephone Encounter - Cinthia Petersona - 04/08/2025 8:57 AM EDT Patient Phone Message Reason for Call: Does the pt need to remain on muscle relaxer ? Best contact number and optimal time of day to reach caller: Leah [phone] Note: Please do not reply to this message. Follow-up communication and further actions as a result of this message need to be communicated with the patient directly, if the patient is not active onMyChart. If the patient is active on MyChart, they will receive notification of the communication/outcome via [employer]. documented in this encounter Plan of Treatment Upcoming Encounters Date Type Department Care Team (Late st Contact Info) Description 05/18/2025 9:20 AM EDT [facility] [address] [place] [address] Amada Rose APRN [address] [facility] [place] [address] documented as of this encounter Visit Diagnoses Not on filedocumented in this encounter Additional Health Concerns Assessment Noted Time A Body Mass Index follow-up plan has been documented for the patient 04/06/2025 12:14 PM EDT documented as of this encounter Care Teams Insulator Tester Relationship Specialty Start Date End Date Dg Kang MD [address] [facility] [address] [place] [address] PCP - General 02/03/21 Amada Rose APRN [address] [place] [address] Nurse Practitioner Neurosurgery 04/06/25 documented as of this encounter
--- OUTSIDE RECORDS SUMMARY | 2025-05-10 09:27 | XMS_ITS | Encounter Summary ---
Author Organization Healthcare Address [address] [place] [address] Care Team Providers Care Helpdesk Administrator Name Role Phone Dg Kang MD Primary Care Provider [phone] Amada Rose RN POST [employer]UM Unavailable [phone] Encounter Details Date Type Department Care Team [...] and Family Not on file 03/05/2025 Attends [employer] Services Not on file 03/05 Active Member [...] Visit [place] [facility] [address] [place] [address] Amada Rose, INEZ [address] [place] [address] documented as of this encounter Visit Diagnoses Not on filedocumented in this encounter Additional Health Concerns Assessment Noted Time A Body Mass Index follow-up plan has been documented for the patient 04/06/2025 12:14 PM EDT documented as of this encounter Care Teams Helpdesk Administrator Relationship Specialty Start Date End Date Dg Kang MD [id number] [place] [address] PCP - General 02/03/21 Amada Rose, INEZ [address] [place] [address] Nurse Practitioner Neurosurgery 04/06/25 documented as of this encounter
--- OUTSIDE RECORDS SUMMARY | 2025-05-10 09:27 | XMS_ITS | Encounter Summary ---
Author Organization Healthcare Address [address] [place] [address] Care Team Providers Care Embedded Linux Developer Name Role Phone Dg Kang MD Primary Care Provider [phone] Amdaa Rose LAUNDRY ROUTE DRIVER Unavailable [phone] Encounter Details Date Type Department Care Team (Latest Contact Info) Description 05/07/2025 Travel 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 Tobacco Use Types Packs/Day [...] and Family Not on file 03/05/2025 Attends Rastafari Services Not on file 03/05 Active Member [...] any time in the past 12 m [facility], were you homeless or living in a [facility] (including now)? No 03/05/2025 Utilities Answer Date [...] Visit [place] [facility] [address] [place] [address] Amada Rose, INEZ [address] [place] [address] documented as of this encounter Visit Diagnoses Not on filedocumented in this encounter Additional Health Concerns Assessment Noted Time A Body Mass Index follow-up plan has been documented for the patient 04/06/2025 12:14 PM EDT documented as of this encounter Care Teams Embedded Linux Developer Relationship Specialty Start Date End Date Dg Kang MD [address] [place] [address] PCP - General 02/03/21 Amada Rose, INEZ [address] [place] [address] Nurse Practitioner Neurosurgery 04/06/25 documented as of this encounter
--- OUTSIDE RECORDS SUMMARY | 2025-05-10 09:27 | XMS_ITS | Encounter Summary ---
Author Organization Healthcare Address [address] [place] [address] Care Team Providers Care Dermatologist Name Role Phone Dg Kang MD Primary Care Provider [phone] Amada Rose DELIVERY ARCHITECT Unavailable [phone] Encounter Details Date Type Department Care Team (Late st Contact Info) Description 05/07/2025 Orders Only External Location [address] [place] [address] Du Mcmahan MD [address] [place] [address] [place] [address] 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 Tobacco Use Types Packs/Day Years [...] in the past 12 m [facility], were you homeless or living in a [...] Visit [place] [facility] [address] [place] [address] Amada Rose APRN [address] [facility] [place] [address] documented as of this encounter Procedures Procedure Name Priority Date/Time Associated Diagnosis Comments CT OUTSIDE IMAGES 05/07/2025 6:29 AM EDT documented in this encounter Results * CT OUTSIDE IMAGES (05/07/2025 6:29 AM EDT) Anatomical Region Laterality Modality Computed Tomogra phy 05/07/2025 6:29 AM EDT Du Mcmahan MD IMG CT PROCEDURES Final Result documented in this encounter Visit Diagnoses Not on filedocumented in this encounter Additional Health Concerns Assessment Noted Time A Body Mass Index follow-up plan has been documented for the patient 04/06/2025 12:14 PM EDT documented as of this encounter Care Teams Dermatologist Relationship Specialty Start Date End Date Dg Kang MD [address] [facility] [address] [place] [address] PCP - General 02/03/21 Amada Rose APRN [address] [place] [address] Nurse Practitioner Neurosurgery 04/06/25 documented as of this encounter
--- OUTSIDE RECORDS SUMMARY | 2025-05-10 09:27 | XMS_ITS | Encounter Summary ---
Author Organization Healthcare Address [address] [place] [address] Care Team Providers Care Folder Machine Adjuster Name Role Phone Dg Kang MD Primary Care Provider [phone] Amada Rose TECHNICAL SME Unavailable [phone] Encounter Details Date Type Department Care Team (Late st Contact Info) Description 05/07/2025 Orders Only External Location [address] [place] [address] Du Mcmahan MD [address] [place] [address] [place] [address] 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 Tobacco Use Types Packs/Day Years [...] and Family Not on file 03/05/2025 Attends Muslim Services Not on file 03/05 Active Member [...] time in the past 12 m [facility], were you homeless or living in a group home (including now)? No 03/05/2025 Utilities Answer [...] [address] [place] [address] Amada Rose APRN [address] [facility] [place] [address] documented as of this encounter Procedures Procedure Name Priority Date/Time Associated Diagnosis Comments CT OUTSIDE IMAGES 05/07/2025 6:23 AM EDT documented in this encounter Results * CT OUTSIDE IMAGES (05/07/2025 6:23 AM EDT) Anatomical Region Laterality Modality Computed Tomogra phy 05/07/2025 6:23 AM EDT Du Mcmahan MD IMG CT PROCEDURES Final Result documented in this encounter Visit Diagnoses Not on filedocumented in this encounter Additional Health Concerns Assessment Noted Time A Body Mass Index follow-up plan has been documented for the patient 04/06/2025 12:14 PM EDT documented as of this encounter Care Teams Folder Machine Adjuster Relationship Specialty Start Date End Date Dg Kang MD [address] [facility] [address] [place] [address] PCP - General 02/03/21 Amada Rose APRN [address] [place] [address] Nurse Practitioner Neurosurgery 04/06/25 documented as of this encounter
--- OUTSIDE RECORDS SUMMARY | 2025-05-10 09:27 | XMS_ITS | Encounter Summary ---
Author Organization Healthcare Address [address] [place] [address] Care Team Providers Care Wood Car Builder Name Role Phone Dg Kang MD Primary Care Provider [phone] Amada Rose BUNG REMOVER Unavailable [phone] Encounter Details Date Type Department Care Team (Late st Contact Info) Description 05/07/2025 Orders Only External Location [address] [place] [address] Du Mcmahan MD [address] [place] [address] [place] [address] 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 Tobacco Use Types Packs/Day Years [...] and Family Not on file 03/05/2025 Attends [employer] Not on file 03/05 Active Member [...] [address] [place] [address] Amada Rose APRN [address] [facility] [place] [address] documented as of this encounter Procedures Procedure Name Priority Date/Time Associated Diagnosis Comments CT OUTSIDE IMAGES 05/07/2025 6:26 AM EDT documented in this encounter Results * CT OUTSIDE IMAGES (05/07/2025 6:26 AM EDT) Anatomical Region Laterality Modality Computed Tomogra phy 05/07/2025 6:26 AM EDT Du Mcmahan MD IMG CT PROCEDURES Final Result documented in this encounter Visit Diagnoses Not on filedocumented in this encounter Additional Health Concerns Assessment Noted Time A Body Mass Index follow-up plan has been documented for the patient 04/06/2025 12:14 PM EDT documented as of this encounter Care Teams Wood Car Builder Relationship Specialty Start Date End Date Dg Kang MD [address] [facility] [address] [place] [address] PCP - General 02/03/21 Amada Rose APRN [address] [place] [address] Nurse Practitioner Neurosurgery 04/06/25 documented as of this encounter
--- OUTSIDE RECORDS SUMMARY | 2025-05-10 09:27 | XMS_ITS | Clinical Summary ---
Author Organization [facility] Address [address] [place] [address] Care Team Providers Care Autopsy Pathologist Name Role Phone Dg Kang MD Primary Care Provider [phone] Amada Rose REPRODUCTION SPECIALIST Unavailable [phone] Allergies Active Allergy Reactions Criticality Noted Date [...] and AP/Lateral XR of the thoracic spine: [facility] ([facility]) Clinic, [address], 1st floor, [facility]. [address] [place] [address] #[phone] HTN (hypertension) 03/03/2025 Overview (03/10/2025): Assessment & [...] Encounters Date Type Department Care Team Description 05/07/2025 10:06 AM EDT - 05/08/2025 8:50 PM EDT Hospital Encounter [facility] Emergency Department [address] [place] [address] Anjel Medina MD [place] MD Bronner, Jonathan M, MD Carter, Craig T, DO Fall, initial encounter (Primary Dx); Closed fracture of eleventh thoracic vertebra, unspecified fracture morphology, initial encounter ([facility]) Discharge Disposition: Home or Self Care 05/07/2025 Travel 05/07/2025 Orders Only External Location [address] [place] [address] Du Mcmahan MD 05/07/2025 Orders Only External Location [address] [place] [address] Du Mcmahan MD 05/07/2025 Orders Only External Location [address] [place] [address] Du Mcmahan MD 05/07/2025 Orders Only External Location [address] [place] [address] Du Mcmahan MD 05/07/2025 Orders Only External Location [address] [place] [address] Du Mcmahan MD 04/08/2025 Telephone [facility] [address], 1st [place] [address] Amada Rose APRN HCN - Patient Message 04/06/2025 10:40 AM EDT Office Visit [facility] [address], 1st [place] [address] Amada Rose, REPRODUCTION SPECIALIST Closed fracture of eleventh thoracic vertebra with routine healing, unspecified fracture morphology, subsequent encounter (Primary Dx); Fall from standing, initial encounter 04/06/2025 10:03 AM EDT - 04/06/2025 11:59 PM EDT Hospital Encounter [facility] [address], 1st [place] [address] Closed fracture of eleventh thoracic vertebra with routine healing, unspecified fracture morphology, subsequent encounter Discharge Disposition: Home or Self Care 04/06/2025 Travel 03/03/2025 Travel 03/02/2025 4:46 PM EDT - 03/10/2025 2:58 PM EDT Hospital Encounter [facility] 9 T2 [facility]I [address] [place] [address] Heron Salinas MD Detelich, Adriane Carter, MD Bernstein, MD Bhupendra Torres Brittany N, MD Bernard, Diogo Joshua, MD Markham, Bj Barber MD Closed fracture of eleventh thoracic vertebra, unspecified fracture morphology, initial encounter ([facility]) (Primary Dx) Discharge Disposition: [facility] Facility 03/02/2025 Travel 03/02/2025 Orders Only External Location [address] [place] [id number] Provider, External 03/02/2025 Orders Only External Location [address] [place] [phone] Provider, External from Last 3 Months Social [...] any time in the past 12 m [facility] [place], were you homeless or living in a skilled nursing (including now)? No 03/05/2025 Utilities Answer Date Recorded In the past 12 months has th e Mr. [employer], gas, oil, or water company threatened to [...] Mass Index 30.03 05/07/2025 10:20 AM EDT Plan of Treatment Upcoming Encounters Date Type Department Care Team (Late st Contact Info) Description 05/18/2025 9:20 AM EDT Office Visit [place] [facility] [address], [address]st [place] [address] Amada Rose L, REPRODUCTION SPECIALIST [address] [place] [address] Health Maintenance Due Date Last Done Comments [facility]-Bone Density Scan 1940 [facility]-Depression Screening 1940 [facility]-Medicare Annual Wellness (AWV) 1940 [facility]-Infant/Child/Adol SDOH Screenings 1940 [facility]-DTaP,Tdap,and Td Vaccine s (1 - Tdap) 1958 [facility]-Zoster Vaccines (1 of 2) 1958 [facility]-WLDMA-15 Vaccine (4 - season) 2024 08/23/2021, 11/16/2020, [...] AM EDT EXTRA TUBE LAVENDER TOP Routine 05/08/20 25 11:26 AM EDT EXTRA TUBE LIGHT BLUE TOP Routine 05/08/2025 11:26 AM EDT EXTRA TUBES Routine 05/08/2025 11:26 AM EDT BASIC METABOLIC PANEL, PLASMA STAT 05/08/2025 11:26 AM EDT MR LUMBAR SPINE WO IV CONTRAST STAT 05/07/2025 9:15 PM EDT MR THORACIC SPINE WO IV CONTRAST STAT 05/07/2025 9:15 PM EDT XR ABDOMEN 1 VIEW STAT 05/07/2025 1:4 5 PM EDT XR CHEST 1 VIEW STAT 05/07/2025 1:[address] OUTSIDE IMAGES 05/07/2025 6:[address] OUTSIDE IMAGES 05/07/2025 6:[address] OUTSIDE IMAGES 05/07/2025 6:[address] OUTSIDE IMAGES 05/07/2025 6:[address] OUTSIDE IMAGES 05/07/2025 6:2 1 AM EDT XR LUMBAR SPINE 2 OR 3 VIEWS [...] EDT from Last 3 Months Results * ECG Adult (05/08/2025 11:45 AM EDT) Only the most recent of2 resultswithin the time period is included. EKG DIAGNOSIS CLASS Abnormal MUSE ECG Ventricular Rate 90 BPM MUSE ECG Atrial Rate 90 BPM MUSE ECG MA Interval 136 ms MUSE ECG QRSD Interval 70 ms MUSE ECG QT Interval 322 ms MUSE ECG QTC Interval 393 ms MUSE ECG P Duke 69 degrees MUSE ECG R Duke -42 degrees MUSE ECG T Wave Duke -47 degrees MUSE ECG Diagnosis Sinus rhythm [...] MUSE ECG Diagnosis Confirmed by Stevie Davison ([id number]) on 05/09/2025 9:43:28 AM MUSE ECG 05/08/2025 11:4 5 AM EDT 05/09/2025 9:43 AM EDT us Colten Rod MD ECG ORDERABLES Final Resu lt MUSE ECG * Gold Top (05/08/2025 11:26 AM EDT) Extra Hold for add-ons 05/08/2025 2:01 PM EDT [facility] Comment:Auto resulted. Blood Venous blood specimen / Unknown 05/08/2025 11:26 AM EDT 05/08/2025 11:45 AM EDT Colten Rod MD LAB BLOOD ORDERABLES Final Result [facility] [address] [place] [address] * Lavender Top (05/08/2025 11:26 AM EDT) Extra Hold for add-ons 05/08/2025 2:01 PM EDT [facility] Comment:Auto resulted. Blood Venous blood specimen / Unknown 05/08/2025 11:26 AM EDT 05/08/2025 11:45 AM EDT Colten oRd MD LAB BLOOD ORDERABLES Final Result Performing Organization Address City/[facility]/ZIP Co de Phone Number [facility] [address] [place] [address] * Light Blue Top (05/08/2025 11:26 AM EDT) Extra Hold for add-ons 05/08/2025 2:01 PM EDT [facility] Comment:Auto resulted. Blood Venous blood specimen / Unknown 05/08/2025 11:26 AM EDT 05/08/2025 11:45 AM EDT Colten Rod MD LAB BLOOD ORDERABLES Final Result [facility] [address] [place] [address] * (ABNORMAL) Basic Metabolic Panel, Plasma (05/08/2025 11:26 AM EDT) Glucose, Plasma 105(H) 74 - 99 mg/dL 05/08/2025 12:01 PM EDT [facility] BUN, Plasma 12 8 - 23 mg/dL 05/08/2025 12:01 PM EDT [facility] Creatinine, Plasma 0.82 0.60 - 1.10 mg/dL 05/08/2025 12:01 PM EDT [facility] BUN/Creatinine Ratio 15 05/08/2025 12:01 PM EDT [facility] Sodium, Plasma 137 136 - 145 mmol/L 05/08/2025 12:01 PM EDT [facility] Potassium, Plasma 3.7 3.6 - 4.9 mmol/L 05/08/2025 12:01 PM EDT [facility] Chloride, Plasma 103 97 - 107 mmol/L 05/08/2025 12:01 PM EDT [facility] CO2, Plasma 22 22 - 29 mmol/L 05/08/2025 12:01 PM EDT [facility] Anion Gap 12 6 - 16 mmol/L 05/08/2025 12:01 PM EDT [facility] Total Calcium, Plasma 9.0 8.9 - 10.2 mg/dL 05/08/2025 12:01 PM EDT [facility] eGFRcr 69.8 mL/min/1.7 3m*2 05/08/2025 12:01 PM EDT [facility] Comment:Reported eGFRcr in m L/min/1.73m2 is based the CKD-EPI 2020 equation that does not use a race coefficient. Blood Venous blood specimen / Unknown Venipuncture / Unknown 05/08/2025 11:26 AM EDT 05/08/2025 11:40 AM EDT us Colten Rod MD LAB BLOOD ORDERABLES Final Result [facility] [address] [place] [address] * MR Lumbar Spine wo IV Contrast (05/07/2025 9:15 PM EDT) Only the most recent of2 resultswithin the time period is included. Anatomical Region Laterality Modality L-spine Magnetic Resonan [...] Lawson on 05/07/2025 at 2145 hours by [employer]. Drafted by Bebe Burns MD on 05/07/2025 [...] spine CT performed 14 hours prior at [facility] Thoracic and lumbar spine MRI 03/03/2025 [...] is severe stenosis at right T1-2 and avmeaxle-rr-hwvapu stenosis at several mid thoracic levels. Prevertebral [...] spine CT performed 14 hours prior at [facility] Thoracic and lumbar spine MRI 03/03/2025 FINDINGS: Thoracic Spine: Diagnostic Quality: Adequate. Alignment: The bony alignment is normal. Marrow, Vertebrae and Intervertebral Discs: Linear T2 hyperintensity inthe anterior-inferior corner of the T11 vertebral body is consistent withfracture, confirmed on recent outside CT scan. Vertebral body heights arenormal. Multilevel disc desiccation and decreased disc heights. Avid [id number] within the T11-12 and T12-L1 disc spaces [...] narrowing issevere stenosis at right T1-2 and njrisbhl-po-uqtgio stenosis at severalmid thoracic levels. Prevertebral and [...] Ja Lawson on 05/07/2025 at 2145 hours [employer] message. Drafted by Bebe Burns MD on 05/07/2025 9:26 PM Final report signed by Bebe Burns MD on 05/07/2025 9:46 PM us Anjel Medina MD IMG MRI PROCEDURES Final Result * MR Thoracic Spine wo IV Contrast (05/07/2025 9:15 PM EDT) Only the most recent of2 resultswithin the time period is included. Anatomical Region Laterality Modality T-spine Magnetic Resonan [...] Lawson on 05/07/2025 at 2145 hours by [employer] message. Drafted by Bebe Burns MD on [...] spine CT performed 14 hours prior at [facility] Thoracic and lumbar spine MRI 03/03/2025 [...] is severe stenosis at right T1-2 and luisqzci-ae-tyovuh stenosis at several mid thoracic levels. Prevertebral [...] spine CT performed 14 hours prior at [facility] Thoracic and lumbar spine MRI 03/03/2025 FINDINGS: Thoracic Spine: Diagnostic Quality: Adequate. Alignment: The bony alignment is normal. Marrow, Vertebrae and Intervertebral Discs: Linear T2 hyperintensity inthe anterior-inferior corner of the T11 vertebral body is consistent withfracture, confirmed on recent outside CT scan. Vertebral body heights arenormal. Multilevel disc desiccation and decreased disc heights. Avid [id number] within the T11-12 and T12-L1 disc spaces [...] narrowing issevere stenosis at right T1-2 and qfeslgzx-mg-uponhy stenosis at severalmid thoracic levels. Prevertebral and [...] IMG MRI PROCEDURES Final Result * XR Chest 1 View (05/07/2025 1:45 PM EDT) Only the most recent of2 resultswithin the time period is included. Anatomical Region Laterality Modality Chest Digital Radiogra phy Impressions 05/07/2025 2:31 PM EDT Chest: Probable trace left effusion. No metallic density noted in the visualized omxgb-bj-xqzh. ABDOMEN: Nonobstructive bowel gas pattern. L2-S1 posterior spinal fusion hardware. Otherwise, no metallic density noted in the visualized acyyf-fv-ttzy. CRITICAL RESULT: No. COMMUNICATION: Per this written [...] effusion. No metallic density noted in the afcnlcduyfldjxn-oo-onhb. ABDOMEN: Nonobstructive bowel gas pattern. L2-S1 posterior spinal fusion hardware. Otherwise, no metallic densitynoted in the visualized pihkd-xc-bkvn. CRITICAL RESULT: No. COMMUNICATION: Per this written [...] IMG XR PROCEDURES Final Result * XR Abdomen 1 View (05/07/2025 1:45 PM EDT) Only the most recent of2 resultswithin the time period is included. Anatomical Region Laterality Modality Body Digital Radiogra phy Impressions 05/07/2025 2:31 PM EDT Chest: Probable trace left effusion. No metallic density noted in the visualized rdfgg-mu-zjmh. ABDOMEN: Nonobstructive bowel gas pattern. L2-S1 posterior spinal fusion hardware. Otherwise, no metallic density noted in the visualized eauud-pw-vbhg. CRITICAL RESULT: No. COMMUNICATION: Per this written [...] effusion. No metallic density noted in the irnmuruvummwnvm-yy-wnuo. ABDOMEN: Nonobstructive bowel gas pattern. L2-S1 posterior spinal fusion hardware. Otherwise, no metallic densitynoted in the visualized emzgo-il-uhwv. CRITICAL RESULT: No. COMMUNICATION: Per this written [...] MD IMG XR PROCEDURES Final Result * CT OUTSIDE IMAGES (05/07/2025 6:32 AM EDT) Only the most recent of7 resultswithin the time period is included. Anatomical Region Laterality Modality Computed Tomogra phy 05/07/2025 6:32 AM EDT us Du Mcmahan MD IMG CT PROCEDURES Final Result * XR Lumbar Spine 2 or 3 [...] MD on 04/06/2025 11:13 AM Amada Rose REPRODUCTION SPECIALIST IMG XR PROCEDURES Final Resu lt * [...] on 04/06/2025 11:13 AM us Amada Rose REPRODUCTION SPECIALIST IMG XR PROCEDURES Final Resu lt * Urinalysis with reflex microscopic (Culture NOT Included) (03/03/2025 7:59 AM EDT) Color, Urine Yellow LAB URINALYSIS - AUTOMATED METHOD 03/03/2025 8:06 AM EDT [facility] Clarity, Urine Clear LAB URINALYSIS - AUTOMATED METHOD 03/03/2025 8:06 AM EDT [facility] Spec [place], Urine 1.016 1.005 - 1.030 LAB URINALYSIS - AUTOMATED METHOD 03/03/2025 8:06 AM EDT [facility] pH, Urine 6.5 5.0 - 8.0 LAB URINALYSIS - AUTOMATED METHOD 03/03/2025 8:06 AM EDT [facility] Protein, Urine Negative Negative mg/dL LAB URINALYSIS - AUTOMATED METHOD 03/03/2025 8:06 AM EDT [facility] Glucose, Urine Negative Negative mg/dL LAB URINALYSIS - AUTOMATED METHOD 03/03/2025 8:06 AM EDT [facility] Ketones, Urine Negative Negative mg/dL LAB URINALYSIS - AUTOMATED METHOD 03/03/2025 8:06 AM EDT [facility] Blood, Urine Negative Negative LAB URINALYSIS - AUTOMATED METHOD 03/03/2025 8:06 AM EDT [facility] Bilirubin, Urine Negative Negative LAB URINALYSIS - AUTOMATED METHOD 03/03/2025 8:06 AM EDT [facility] Urobilinogen, Urine 0.2 0.2 to 1.0 mg/dL LAB URINALYSIS - AUTOMATED METHOD 03/03/2025 8:06 AM EDT [facility] Leukocytes, Urine Negative Negative LAB URINALYSIS - AUTOMATED METHOD 03/03/2025 8:06 AM EDT [facility] Nitrite, Urine Negative Negative LAB URINALYSIS - AUTOMATED METHOD 03/03/2025 8:06 AM EDT [facility] Urine Urine specimen obtained by clean catch procedure / Unknown Non-blood Collection / Unknown 03/03/2025 7:59 AM EDT 03/03/2025 8:03 AM EDT us Heron Salinas MD LAB URINE ORDERABLES Final R esult [facility] [address] [place] [address] * MR Cervical Spine wo IV Contrast [...] the inferior endplate and extending into the [id number] disc. *No evidence of fracture or traumatic [...] 1/2 Differentiation (03/02/2025 6:44 PM EDT) Pathologist [facility] HIV 1 & 2 Antibody/Antigen Screen Non Reactive Non Reactive 03/02/2025 7:48 PM EDT [facility] Comment:Screening for HIV 1 & 2 antibodies, and P24 antigen is NONREACTIVE. No confirmatory testing is required. Blood Venous blood specimen / Unknown Venipuncture / Unknown 03/02/2025 6:44 PM EDT 03/02/2025 7:02 PM EDT Heron Salinas MD LAB BLOOD ORDERABLES Final R esult [facility] [address] [place] [address] * Light Green Top (03/02/2025 6:44 PM EDT) Pathologist [facility] Extra Hold for add-ons 03/02/2025 9:02 PM EDT [facility] Comment:Auto resulted. Blood Venous blood specimen / Unknown 03/02/2025 6:44 PM EDT 03/02/2025 6:53 PM EDT Heron Salinas MD LAB BLOOD ORDERABLES Final R esult Performing Organization Address City/[facility]/ZIP Co de Phone Number [facility] [address] [place] [address] * Hepatitis C Antibody - ED (03/02/2025 6:44 PM EDT) [facility] Hepatitis C Antibody Negative Negative 03/02/2025 7:48 PM EDT [facility] Blood Venous blood specimen / Unknown Venipuncture / Unknown 03/02/2025 6:44 PM EDT 03/02/2025 7:02 PM EDT us Heron Salinas MD LAB BLOOD ORDERABLES Final R esult Performing Organization Address City/[facility]/ZIP Co de Phone Number [facility] [address] [place] [address] * PT-INR (03/02/2025 6:44 PM EDT) [facility] Prothrombin Time 13.1 12.0 - 14.3 sec 03/02/2025 7:04 PM EDT [facility] INR 1.0 0.9 - 1.1 03/02/2025 7:04 PM EDT [facility] Blood Venous blood specimen / Unknown Venipuncture / Unknown 03/02/2025 6:44 PM EDT 03/02/2025 6:49 PM EDT Narrative [facility] - 03/02/2025 7:04 PM EDT OPTIMAL INR RANGES FOR PATIENT ON ORAL ANTICOAGULANT THERAPY Prevention of venous thromboembolism INR 2.0 to 3.0 In patients with heart disease: Atrial fibrillation INR 2.0 to 3.0 Valvular heart disease INR 2.0 to 3.0 Tissue heart valves INR 2.0 to 3.0 Mechanical prosthetic valves INR 2.5 to 3.5 Prevention of recurrent [place] INR 2.5 to 3.5 us Heron Salinas MD LAB BLOOD ORDERABLES Final R esult [facility] [address] [place] [address] * (ABNORMAL) CBC w/diff (03/02/2025 6:44 PM EDT) WBC Count 7.31 3.70 - 10.30 10*3/uL LAB HEMATOLOGY METHOD 03/02/2025 6:52 PM EDT [facility] RBC Count 3.91 3.90 - 5.20 10*6/uL LAB HEMATOLOGY METHOD 03/02/2025 6:52 PM EDT [facility] HGB 12.0 11.2 - 15.7 g/dL LAB HEMATOLOGY METHOD 03/02/2025 6:52 PM EDT [facility] HCT 34.7 34.0 - 45.0 % LAB HEMATOLOGY METHOD 03/02/2025 6:52 PM EDT [facility] Platelet Count 161 155 - 369 10*3/uL LAB HEMATOLOGY METHOD 03/02/2025 6:52 PM EDT [facility] MCV 89 79 - 98 fL LAB HEMATOLOGY METHOD 03/02/2025 6:52 PM EDT [facility] MCH 30.7 26.0 - 32.0 pg LAB HEMATOLOGY METHOD 03/02/2025 6:52 PM EDT [facility] MCHC 34.6 30.7 - 35.5 g/dL LAB HEMATOLOGY METHOD 03/02/2025 6:52 PM EDT [facility] RDW 14.3 11.5 - 14.5 % LAB HEMATOLOGY METHOD 03/02/2025 6:52 PM EDT [facility] MPV 9.3 8.8 - 12.5 fL LAB HEMATOLOGY METHOD 03/02/2025 6:52 PM EDT [facility] nRBC 0.0 <=0.0 per 100 WBCs LAB HEMATOLOGY METHOD 03/02/2025 6:52 PM EDT [facility] Differential Type Automated LAB HEMATOLOGY METHOD 03/02/2025 6:52 PM EDT [facility] Neutrophils % 78 % LAB HEMATOLOGY METHOD 03/02/2025 6:52 PM EDT [facility] Lymphocytes % 10 % LAB HEMATOLOGY METHOD 03/02/2025 6:52 PM EDT [facility] Monocytes % 8 % LAB HEMATOLOGY METHOD 03/02/2025 6:52 PM EDT [facility] Eosinophils % 2 % LAB HEMATOLOGY METHOD 03/02/2025 6:52 PM EDT [facility] Basophils % 1 % LAB HEMATOLOGY METHOD 03/02/2025 6:52 PM EDT [facility] Immature Granulocytes % 1 % LAB HEMATOLOGY METHOD 03/02/2025 6:52 PM EDT [facility] Neutrophils Absolute 5.69 1.60 - 6.10 10*3/uL LAB HEMATOLOGY METHOD 03/02/2025 6:52 PM EDT [facility] Lymphocytes Absolute 0.76(L) 1.20 - 3.90 10*3/uL LAB HEMATOLOGY METHOD 03/02/2025 6:52 PM EDT [facility] Monocytes Absolute 0.60 0.30 - 0.90 10*3/uL LAB HEMATOLOGY METHOD 03/02/2025 6:52 PM EDT [facility] Eosinophils Absolute 0.15 0.00 - 0.50 10*3/uL LAB HEMATOLOGY METHOD 03/02/2025 6:52 PM EDT [facility] Basophils Absolute 0.06 0.00 - 0.10 10*3/uL LAB HEMATOLOGY METHOD 03/02/2025 6:52 PM EDT [facility] Immature Granulocytes Absolute 0.05 0.00 - 0.06 10*3/uL LAB HEMATOLOGY METHOD 03/02/2025 6:52 PM EDT [facility] Blood Venous blood specimen / Unknown Venipuncture / Unknown 03/02/2025 6:44 PM EDT 03/02/2025 6:49 PM EDT Narrative [facility] - 03/02/2025 6:52 PM EDT Therapeutic decision making should be based on absolute values, rather than percentages. us Heron Salinas MD LAB BLOOD ORDERABLES Final R esult [facility] [address] [place] [address] * Type and screen (03/02/2025 6:44 PM EDT) ABO/Rh O Positive 03/02/2025 6:08 PM EDT [facility] Antibody Screen Negative 03/02/2025 6:08 PM EDT [facility] Specimen Expiration 03/05/2025 23:59 03/02/2025 6:08 PM EDT [facility] Blood Venous blood specimen / Unknown Venipuncture / Unknown 03/02/2025 6:44 PM EDT 03/02/2025 6:51 PM EDT Heron Salinas MD LAB BLOOD BANK TEST ORDERABL ES Final Result Performing Organization Address [facility]/ZIP Co de Phone Number BLOOD BANK [address] [place] [address], * Magnesium (03/02/2025 6:44 PM EDT) Pathologist [facility] Magnesium, Plasma 1.9 1.9 - 2.4 mg/dL 03/02/2025 7:09 PM EDT [facility] Blood Venous blood specimen / Unknown Venipuncture / Unknown 03/02/2025 6:44 PM EDT 03/02/2025 6:49 PM EDT Heron Salinas MD LAB BLOOD ORDERABLES Final R esult [facility] [address] [place] [address] * (ABNORMAL) CMP (03/02/2025 6:44 PM EDT) Glucose, Plasma 107(H) 74 - 99 mg/dL 03/02/2025 7:09 PM EDT [facility] BUN, Plasma 24(H) 8 - 23 mg/dL 03/02/2025 7:09 PM EDT [facility] Creatinine, Plasma 1.02 0.60 - 1.10 mg/dL 03/02/2025 7:09 PM EDT [facility] BUN/Creatinine Ratio 24 03/02/2025 7:09 PM EDT [facility] Sodium, Plasma 130(L) 136 - 145 mmol/L 03/02/2025 7:09 PM EDT [facility] Potassium, Plasma 4.8 3.6 - 4.9 mmol/L 03/02/2025 7:09 PM EDT [facility] Chloride, Plasma 96(L) 97 - 107 mmol/L 03/02/2025 7:09 PM EDT [facility] CO2, Plasma 24 22 - 29 mmol/L 03/02/2025 7:09 PM EDT [facility] Anion Gap 10 6 - 16 mmol/L 03/02/2025 7:09 PM EDT [facility] Total Calcium, Plasma 8.8(L) 8.9 - 10.2 mg/dL 03/02/2025 7:09 PM EDT [facility] Total Protein 5.7(L) 6.3 - 7.9 g/dL 03/02/2025 7:09 PM EDT [facility] Albumin, Plasma 3.6 3.5 - 5.2 g/dL 03/02/2025 7:09 PM EDT [facility] AST, Plasma 19 10 - 35 U/L 03/02/2025 7:09 PM EDT [facility] Comment:Hemolyzed, result ma y be falsely increased. ALT, Plasma 25 10 - 35 U/L 03/02/2025 7:09 PM EDT [facility] Alkaline Phosphatase, Plasma 92 46 - 142 U/L 03/02/2025 7:09 PM EDT [facility] Total Bilirubin, Plasma 0.4 0.2 - 1.1 mg/dL 03/02/2025 7:09 PM EDT [facility] eGFRcr 54.0 mL/min/1.7 3m*2 03/02/2025 7:09 PM EDT [facility] Comment:Reported eGFRcr in m L/min/1.73m2 is based the CKD-EPI 2020 equation that does not use a race coefficient. Blood Venous blood specimen / Unknown Venipuncture / Unknown 03/02/2025 6:44 PM EDT 03/02/2025 6:49 PM EDT us Heron Salinas MD LAB BLOOD ORDERABLES Final R esult [facility] [address] [place] [address] from Last 3 Months Insurance [facility] MEDICARE [place]ICAID-[place] Advance Directives * Full Code (Latest Code Status on File) Date Activated Date Inactivated Comments 05/07/2025 2:15 PM 05/08/2025 11:42 PM Question Answer Comments I have reviewed the capacity from the link above and, if needed, have updated to appropriate status: Yes * Full Code Date Activated Date Inactivated Comments 03/02/2025 10:47 PM 03/10/2025 4:58 PM Question Answer Comments I have reviewed the capacity from the link above and, if needed, have updated to appropriate status: Yes Care Teams Autopsy Pathologist Relationship Specialty Start Date End Date Dg Kang MD [address] [place] [address] PCP - General 02/03/21 Amada Rose APRN [address] [place] [id number] Nurse Practitioner Neurosurgery 04/06/25
--- OUTSIDE RECORDS SUMMARY | 2025-05-10 09:27 | XMS_ITS | Encounter Summary ---
Author Organization Healthcare Address [address] [place] [address] Care Team Providers Care Forest And Conservation Worker Name Role Phone Dg Kang MD Primary Care Provider [phone] Amada Rose HEADING UP MACHINE OPERATOR Unavailable [phone] Encounter Details Date Type Department Care Team (Late st Contact Info) Description 05/07/2025 Orders Only External Location [address] [place] [address] Du Mcmahan MD [address] [place] [address] 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 Tobacco Use Types Packs/Day Years [...] and Family Not on file 03/05/2025 Attends Taoism Services Not on file 03/05 Active Member [...] [address] [place] [address] Amada Rose APRN [address] [facility] [place] [address] documented as of this encounter Procedures Procedure Name Priority Date/Time Associated Diagnosis Comments CT OUTSIDE IMAGES 05/07/2025 6:21 AM EDT documented in this encounter Results * CT OUTSIDE IMAGES (05/07/2025 6:21 AM EDT) Anatomical Region Laterality Modality Computed Tomogra phy 05/07/2025 6:21 AM EDT Du Mcmahan MD IMG CT PROCEDURES Final Result documented in this encounter Visit Diagnoses Not on filedocumented in this encounter Additional Health Concerns Assessment Noted Time A Body Mass Index follow-up plan has been documented for the patient 04/06/2025 12:14 PM EDT documented as of this encounter Care Teams Forest And Conservation Worker Relationship Specialty Start Date End Date Dg Kang MD [address] [facility] [address] [place] [address] PCP - General 02/03/21 Amada Rose APRN [address] [place] [address] Nurse Practitioner Neurosurgery 04/06/25 documented as of this encounter
--- OUTSIDE RECORDS SUMMARY | 2025-05-10 09:27 | XMS_ITS | Patient Health Record ---
Author Organization [facility] [place] Address [address] [facility] [place] [address] Care Team Providers Care Research Laboratory Technician Name Role Phone MARLEE MEDINA Primary Care Provider [phone] [id number] Jorge Luis Cote, Dg Unavailable Unavailable Reason For Referral No Information Plan Of Treatment No Information Insurance Providers Payer Name Payer Address Payer Phone Subscriber Number Group Number Insured Name Patient Relationship to Insured Coverage Start Date Coverage End Date [employer] [address] [address] [place] [address] [id number] Kelley Hamm Self - patient is the insured
--- OUTSIDE RECORDS SUMMARY | 2025-05-10 09:27 | XMS_ITS | Encounter Summary ---
Author Organization Healthcare Address [address] [place] [address] Care Team Providers Care Siding Applicator Name Role Phone Dg Kang MD Primary Care Provider [phone] Amada Rose FREIGHT TRUCKER Unavailable [phone] Encounter Details Date Type Department Care Team (Late st Contact Info) Description 05/07/2025 Orders Only External Location [address] [place] [address] Du Mcmahan MD [address] [place] [address] 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 Tobacco Use Types Packs/Day Years [...] and Family Not on file 03/05/2025 Attends Yazidism Services Not on file 03/05 Active Member [...] [address] [place] [address] Amada Rose APRN [address] [facility] [place] [address] documented as of this encounter Procedures Procedure Name Priority Date/Time Associated Diagnosis Comments CT OUTSIDE IMAGES 05/07/2025 6:32 AM EDT documented in this encounter Results * CT OUTSIDE IMAGES (05/07/2025 6:32 AM EDT) Anatomical Region Laterality Modality Computed Tomogra phy 05/07/2025 6:32 AM EDT Du Mcmahan MD IMG CT PROCEDURES Final Result documented in this encounter Visit Diagnoses Not on filedocumented in this encounter Additional Health Concerns Assessment Noted Time A Body Mass Index follow-up plan has been documented for the patient 04/06/2025 12:14 PM EDT documented as of this encounter Care Teams Siding Applicator Relationship Specialty Start Date End Date Dg Kang MD [address] [facility] [address] [place] [address] PCP - General 02/03/21 Amada Rose APRN [address] [place] [address] Nurse Practitioner Neurosurgery 04/06/25 documented as of this encounter
== END 2025-05-10 13:17 | disposition home or self-care (01) ==
PROVIDERS: Emergency Provider Student in an Organized Health Care Education/Training Program
DX: Z04.3 Encounter for examination and observation following other accident (principal); W18.30XA Fall on same level, unspecified, initial encounter
CPT/HCPCS: 70450; 71045; 72125; 72128; 72131; 72170; 93005; 99284; 99285

== ENCOUNTER 2025-05-11 04:41 | Emergency (ER) | payer MEDICARE, MEDICAID, SELFPAY ==
--- OUTSIDE RECORDS SUMMARY | 2025-04-06 10:03 | XMS_ITS | Encounter Summary ---
Author Organization Healthcare Address [address] [place] [address] Care Team Providers Care Community Nurse Name Role Phone Dg Kang MD Primary Care Provider [phone] Amada Rose NUCLEAR MEDICINE PET CT TECHNOLOGIST Unavailable [phone] Encounter Details Date Type Department Care Team (Latest Contact Info) Description 04/06/2025 10:03 AM EDT - 04/06/2025 11:59 PM EDT Hospital Encounter [place] [facility] [address], [address] [place] [address] Closed fracture of eleventh thoracic vertebra with [...] and Family Not on file 03/05/2025 Attends Voodoo Services Not on file 03/05 Active Member [...] any time in the past 12 m [facility], were you homeless or living in [...] as of this encounter Plan of Treatment Not on file documented as of this encounter Procedures Procedure [...] MD on 04/06/2025 11:13 AM Amada Rose NUCLEAR MEDICINE PET CT TECHNOLOGIST IMG XR PROCEDURES Final Resu lt * [...] 11:09 AM Final report signed by Rafy iPneda MD on 04/06/2025 11:13 AM Amada Rose [...] documented as of this encounter Care Teams Community Nurse Relationship Specialty Start Date End Date Dg Kang MD [facility] [place] [address] PCP - General 02/03/21 Amada Rose APRN [address] [facility] [address] [place] [address] Nurse Practitioner Neurosurgery 04/06/25 documented as of this encounter
--- OUTSIDE RECORDS SUMMARY | 2025-04-06 10:40 | XMS_ITS | Encounter Summary ---
Author Organization Healthcare Address [address] [place] [address] Care Team Providers Care Steel Detailer Name Role Phone Dg Kang MD Primary Care Provider [phone] Amada Rose SENIOR ESCROW OFFICER Unavailable [phone] Encounter Details Date Type Department Care Team (Late st Contact Info) Description 04/06/2025 10:40 AM EDT Office Visit [place] [facility] [address], [address] [place] [address] Amada Rose, SENIOR ESCROW OFFICER [address] [place] [address] Closed fracture of eleventh thoracic [...] and Family Not on file 03/05/2025 Attends Gnosticism Services Not on file 03/05 Active Member [...] any time in the past 12 m [facility], were you homeless or living in a fdc (including now)? No 03/05/2025 Utilities Answer Date Recorded In the past 12 months has th e electric, gas, [employer], or water [employer] threatened to shut off services in your [...] Notes * Progress Notes - Amada Rose, INEZ - 04/06/2025 10:40 AM EDT We had [...] Left C5: Deltoid 5/5 5/5 C6: Biceps / 5/5 C7: Triceps 5/5 5/5 C8: Plant Operations Engineer /5 5/5 T1: Intrinsics /5 5/5 Lower Extremity Motor Strength Right Left L2: Hip flexion (Iliopsoas) 12/26 4 L3: Knee extension (Quad) 12/26 4 L4: Ankle DF (TA) 12/26 12/26 L5: Great Toe DF (EHL) 12/26 12/26 S1: Ankle Pf, Foot Eversion (Peroneal longus/brevis) 12/26 12/26 S2: Great toe flexion (FHL), Knee flexion [...] with return appointment reminder. Amada Rose APRN [facility] Department of Neurosurgery This note was dictated using voice to text software and may contain errors 40 minutes was spent reviewing previous documentation and imaging, completion of today's documentation, [id number] visit, care coordination and planning [1] Past [...] documented in this encounter Plan of Treatment Not on file documented as of this encounter Results * [...] on 04/06/2025 11:13 AM us Amada Rose SENIOR ESCROW OFFICER IMG XR PROCEDURES Final Resu lt * [...] documented as of this encounter Care Teams Steel Detailer Relationship Specialty Start Date End Date Dg Kang MD [facility] [address] [place] [address] PCP - General 02/03/21 Amada Rose APRN [address] [facility] [address] [place] [address] Nurse Practitioner Neurosurgery 04/06/25 documented as of this encounter
--- OUTSIDE RECORDS SUMMARY | 2025-05-07 10:06 | XMS_ITS | Encounter Summary ---
Author Organization Healthcare Address [address] [place] [address] Care Team Providers Care Enterprise Infrastructure Architect Name Role Phone Dg Kang MD Primary Care Provider Amada Rose [facility] NURSE LIAISON Unavailable [phone] Reason for Visit * Reason Comments Fall * Auth/Cert (Routine) Specialty Diagnoses / Procedures Referred By Ton willingham Referred To Contact Diagnoses new fracture from falls [facility] [address] [place] [address] Phone: tel: [facility] Emergency Department [address] [place] [address] Phone: tel: Referral ID Status Reason Start Date Expiration Date Visits Re quested Visits Authorized [id number] 1 1 Encounter Details Date Type Department Care Team (Latest Contact Info) Description 05/07/2025 10:06 AM EDT - 05/08/2025 8:50 PM EDT Hospital Encounter [facility] Emergency Department [address] [place] [address] Anjel Medina MD [address] [place] [address] Ki White MD [address] [place] [address] Colten Rod MD [address] [place] [address] Mynor Pedersen, DO [address] [place] [address] Fall, initial encounter (Primary Dx); Closed fracture of eleventh thoracic vertebra, unspecified fracture morphology, initial encounter ([facility]) Discharge Disposition: Home or Self Care Social [...] and Family Not on file 03/05/2025 Attends [employer] Services Not on file 03/05 Active Member [...] any time in the past [address] [facility], were you homeless or living in a [...] Sign Reading Time Taken Comments Blood Pressure 147/67 05/08/2025 8:33 PM EDT Pulse 112 05/08/2025 8:33 PM EDT Temperature 36.5 C (97.7 F) 05/08/2025 8:33 PM EDT Respiratory Rate 24 05/08/2025 8:33 PM EDT Oxygen Saturation 96% 05/08/2025 8:33 PM EDT Inhaled Oxygen Concentration - - Weight 76.9 kg (169 lb 8.5 oz) 05/07/2025 10:20 AM EDT Height 160 cm (5' 3 ) 05/07/2025 10:20 AM EDT Body Mass Index 30.03 05/07/2025 10:20 AM EDT documented in this encounter Discharge Instructions * Discharge Instructions* Darlin Hsieh, - 05/08/2025 4:23 PM EDT Please follow up with Neurosurgery on 05/18/2025 for T11 fracture, continue wearing TLSO brace out of bed. Please plan to transition patient to detention at [facility] as planned prior to arrival to the emergency department for continued medical care. If the patient develops worsening pain, numbness or tingling, mental status changes, please return to the ED for repeat evaluation documented in this encounter Medications at Time [...] mouth nightly. documented as of this encounter Miscellaneous Notes * Discharge Summary - Darlin Hsieh DO - 05/08/2025 4:15 PM EDT Hospitalization Admit Date/Time: 05/07/2025 10:06 AM Admitting Attending: Discharge Date: 05/08/2025 Discharge Attending Physician: Colten Rod MD PCP name and Address: Dg Kang MD [address] [facility] [address] / [place] [id number] Referring provider name and address: Antonino Silvia Antonella, DO [address] [place] [address] Chief Concern, Brief History of Present Illness, and Hospital Course 85 y.o. with pertinent medical history of dementia, known T11 fracture from 02/2025, who is presenting from OSH with concerns of worsening T11/T12 injury. Patient was noted to have a ground level fallat home. Upon [facility] with EMS, patient was grimacing in pain however denied pain verbally. Of note, patient was planning to transfer to [facility] in [place] prior to admission. patient was diagnosed with a T11 fracture in 02/2025 and discharged with a TLSO brace.Imaging at OSH demonstrated worsening T11 injury with extension into T12, neurosurgery was consulted without neurosurgical intervention plans. Patient was recommended to continue wearing TLSO brace out of bed as previously recommended with follow up on 05/18/2025 in the neurosurgery clinic. Patientcontinued to deny pain during admission. Of note, nursing reach out to primary team with concerns for V-tach/VFib on telemetry, however it was noted that the patient has a continuous tremor at baseline that was seen on telemetry, repeat EKG during episodes seen on telemetry without concerns for ventricular arrhythmias. Patient's son states that he is comfortable with assisting patient with transferred to detention independently despite offering case management services. Patient was discharged under the care of the patient's son. Surgeries and Procedures Medication List . acetaminophen 500 MG tablet Commonly known as: [...] Neurontin Take 2 capsules by mouth nightly. levalbuterol 1.25 MG/3ML nebulizer solution Commonly known [...] Zocor Take 1 tablet by mouth nightly. Discharge Diagnosis Medical Problems Post Discharge Instructions Please follow up with Neurosurgery on 05/18/2025 for T11 fracture, continue wearing TLSO brace out of bed. Please plan to transition patient to detention at [facility] as planned prior to arrival to the emergency department for continued medical care. If the patient develops worsening pain, numbness or tingling, mental status changes, please return to the ED for repeat evaluation Outpatient Follow-Up Future Appointments Date Time Provider Department Center 05/18/2025 9:20 AM Amada Rose APRN [facility] Test Results Pending At Discharge Pertinent Physical Exam At Time of Discharge Physical Exam Constitutional: General: She is not in acute distress. HENT: Head: Normocephalic. Comments: No facial swelling Mouth/Throat: Mouth: Mucous membranes are moist. Pharynx: Oropharynx is clear. Cardiovascular: Rate and Rhythm: Normal rate. Pulmonary: Effort: Pulmonary effort is normal. No respiratory distress. Breath sounds: Normal air entry. Comments: Symmetric chest rise Abdominal: General: There is no distension. Musculoskeletal: General: No deformity. Normal range of motion. Cervical back: Normal range of motion. Comments: Atraumatic, moves all extremities spontaneously Neurological: Mental Status: She is alert. Mental status is at baseline. Comments: Awake Psychiatric: Behavior: Behavior normal. Discharge Disposition/Condition Disposition: Nursing facility ([facility] argenis Mann Condition: Stable (s/sx potential problems absent or manageable) I spent >30 minutes of patient care and instruction time in preparation for this discharge. Darlin Hsieh DO Internal Medicine, PGY-3 Cosigned by Mynor Pedersen DO at 05/10/2025 7:24 AM EDT Associated attestation - Mynor Pedersen DO - 05/10/2025 7:24 AM EDT I saw and evaluated the patient with the resident/fellow. I discussed the case with the resident/fellow and agree with the findings and plan as documented. I spent 20 minutes of patient care and instruction time in preparation for this discharge. * Care Plan - Betty Ch RN - 05/08/2025 9:03 AM EDT Problem: Skin Injury Risk Increased Goal: Skin Health and Integrity Outcome: Ongoing, Progressing Intervention: Optimize Skin Protection Flowsheets (Taken 05/08/2025754) Activity Management: activity adjusted per tolerance previous patient education reinforced Pressure Reduction Techniques: frequent weight shift encouraged weight shift assistance provided sit time limited to 2 hours Pressure Reduction Devices: heel offloading device utilized positioning supports utilized Skin Protection: transparent dressing maintained Head of Bed (HOB) Positioning: HOB at 20 degrees Intervention: Promote and Optimize Oral Intake Note: NPO status, Problem: Fall Injury Risk Goal: Absence of Fall and Fall-Related Injury Outcome: Ongoing, Progressing Intervention: Identify and Manage Contributors Flowsheets (Taken 05/08/2025 075) Medication Review/Management: medications reviewed Self-Care Promotion: BADL personal objects within reach BADL personal routines maintained Intervention: Promote Injury-Free Environment Flowsheets (Taken 05/08/2025 0753) Safety Promotion/Fall Prevention: clutter-free environment maintained activity supervised assistive device/personal items within reach fall prevention program maintained lighting adjusted nonskid shoes/slippers when out of bed room organization consistent safety round/check completed Problem: Adult Inpatient Plan of Care Goal: Optimal Comfort and Wellbeing Outcome: Ongoing, Progressing Intervention: Monitor Pain and Promote Comfort Flowsheets (Taken 05/08/2025 08) Pain Management Interventions: pain management plan reviewed with patient/caregiver Intervention: Provide Person-Centered Care Flowsheets (Taken 05/08/2025799) Trust Relationship/Rapport: care explained questions answered questions encouraged * Care Plan - Slime Santacruz RN - 05/07/2025 8:33 PM EDT Problem: Adult Inpatient Plan of Care Goal: Plan of Care Review Outcome: Ongoing, Progressing Flowsheets (Taken 05/07/20252030) Progress: no change Outcome Evaluation: Pending MRI scan/results for further plan of care Plan of Care Reviewed With: patient child Goal: Patient-Specific Goal (Individualized) Outcome: Ongoing, Progressing Flowsheets (Taken 05/07/20252030) Patient/Family-Specific Goals (Include Timeframe): patient will remain free from falls and injuriesthroughout shift, patient will be repositioned q2h throughout shift to maintain skin integrity Individualized Care Needs: safety Anxieties, Fears or Concerns: denies Goal: Absence of Hospital-Acquired Illness or Injury Outcome: Ongoing, Progressing Intervention: Identify and Manage Fall Risk Flowsheets (Taken 05/07/20252030) Safety Promotion/Fall Prevention: activity supervised assistive device/personal items within reach safety round/check completed clutter-free environment maintained fall prevention program maintained lighting adjusted nonskid shoes/slippers when out of bed room organization consistent toileting scheduled Intervention: Prevent Skin Injury Flowsheets (Taken 05/07/20252030) Skin Protection: skin sealant/moisture barrier applied incontinence pads utilized protective footwear used transparent dressing maintained Intervention: Prevent and Manage VTE (Venous Thromboembolism) Risk Flowsheets (Taken 05/07/2025 1950) VTE Prevention/Management: bilateral SCDs (sequential compression devices) on Intervention: Prevent Infection Flowsheets (Taken 05/07/20252030) Infection Prevention: environmental surveillance performed hand hygiene promoted rest/sleep promoted single patient room provided Goal: Optimal Comfort and Wellbeing Outcome: Ongoing, Progressing Intervention: Provide Person-Centered Care Flowsheets (Taken 05/07/20252030) Trust Relationship/Rapport: care explained choices provided questions encouraged reassurance provided thoughts/feelings acknowledged questions answered * Progress Notes - Surjit Osorio RN - 05/07/2025 11:19 AM EDT Kelleytaiwo Hua Chief Complaint Patient presents with Fall Geriatric Screening Geriatric TRST alert for a pt response on the questionnaire. CM reviewed current DME used at home or if there is a need for DME to assist with mobility and safety. Spoke with patient and family at bedside to discuss safety measures. Patient is pending clinical course for treatment. Patient lives with grandchild who is her soil field technician. 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 Reports more than 10 falls in the last three months. Patient has a hard shell brace that was not on at the time of fall but reports that she normally wears it when getting outof bed. Family at bedside stated they had secured a bed at [facility] and was pending admission today. [phone]. EASI-0 MNA-NC Geriatric Triage Risk Screening Tool (TRST) Cognitive impairment: Yes Five or more medications: No Difficulty walking/ transferring, or recent falls: Yes ED use in the last 30 days or hospitalization in previous 90 days: No Lives alone and/ or no caregiver: No ED staff concerns: No TRST Assessment Total: 2 Discussed fall safety measures for the home such as removing throw rugs, padding corners of aguirre/furniture, grab bars, etc. Discussed importance of regular PCP care and if they have an upcoming appts with PCP, access to prescription concerns, in-home care and medical transportation. Case management will continue to follow as needed and able to offer additional resources at request. 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 Pt states she was sitting at edge of bed and slipped down and landed on her buttocks area. Pt had previous fall in February and had t11 fx. Pt transferred here for concern for new t12 fx. No Blood thinners, no LOC, GCS 14 (baseline, HX of dementia) documented in this encounter Plan of Treatment Not on file documented as of this encounter Procedures Procedure Name Priority Date/Time Associated Diagnosis Comments ECG ADULT STAT 05/08/2025 11:45 AM EDT EXTRA TUBE GOLD TOP Routine 05/08/2025 1 1:26 AM EDT EXTRA TUBE LAVENDER TOP Routine 05/08/2025 11:26 AM EDT EXTRA TUBE LIGHT BLUE TOP Routine 05/08/2025 11:26 AM EDT EXTRA TUBES Routine 05/08/2025 11:26 AM EDT BASIC METABOLIC PANEL, PLASMA STAT 05/08/2025 11:26 AM EDT MR LUMBAR SPINE WO IV CONTRAST STAT 05/07/2025 9:15 PM EDT MR THORACIC SPINE WO IV CONTRAST STAT 05/07/2025 9:15 PM EDT XR CHEST 1 VIEW STAT 05/07/2025 1:45 PM EDT XR ABDOMEN 1 VIEW STAT 05/07/2025 1:4 5 PM EDT documented in this encounter Results * ECG Adult (05/08/2025 11:45 AM EDT) EKG DIAGNOSIS CLASS Abnormal MUSE ECG Ventricular Rate 90 BPM MUSE ECG Atrial Rate 90 BPM MUSE ECG NH Interval 136 ms MUSE ECG QRSD Interval 70 ms MUSE ECG QT Interval 322 ms MUSE ECG QTC Interval 393 ms MUSE ECG P [place] 69 degrees MUSE ECG R [place] -42 degrees MUSE ECG T Wave [place] -47 degrees MUSE ECG Diagnosis Sinus rhythm with premature atrial complexes MUSE ECG Diagnosis Left axis deviation MUSE ECG Diagnosis Inferior infarct , age undetermined MUSE ECG Diagnosis Poor R-wave progression Possible Anterior infarct , age undetermined MUSE ECG Diagnosis Abnormal ECG MUSE ECG Diagnosis Compared to last ECG MUSE ECG Diagnosis premature atrial complexes is now present MUSE ECG Diagnosis MUSE ECG Diagnosis MUSE ECG Diagnosis MUSE ECG Diagnosis Confirmed by Stevie Davison ([id number]) on 05/09/2025 9:43:28 AM MUSE ECG 05/08/2025 11:4 5 AM EDT 05/09/2025 9:43 AM EDT Colten Rod MD ECG ORDERABLES Final Resu lt MUSE ECG * Gold Top (05/08/2025 11:26 AM EDT) Extra Hold for add-ons 05/08/2025 2:01 PM EDT [facility] Comment:Auto resulted. Blood Venous blood specimen / Unknown 05/08/2025 11:26 AM EDT 05/08/2025 11:45 AM EDT Colten Rod MD LAB BLOOD ORDERABLES Final Result Performing Organization Address City/[facility]/ZIP Co de Phone Number [facility] [address] [place] [address] * Lavender Top (05/08/2025 11:26 AM EDT) Extra Hold for add-ons 05/08/2025 2:01 PM EDT [facility] Comment:Auto resulted. Blood Venous blood specimen / Unknown 05/08/2025 11:26 AM EDT 05/08/2025 11:45 AM EDT Colten Rod MD LAB BLOOD ORDERABLES Final Result [facility] [address] [place] [address] * Light Blue Top (05/08/2025 11:26 AM EDT) Extra Hold for add-ons 05/08/2025 2:01 PM EDT [facility] Comment:Auto resulted. Blood Venous blood specimen / Unknown 05/08/2025 11:26 AM EDT 05/08/2025 11:45 AM EDT us Colten Rod MD LAB BLOOD ORDERABLES Final Result [facility] [address] [place] [address] * (ABNORMAL) Basic Metabolic Panel, Plasma (05/08/2025 11:26 AM EDT) Glucose, Plasma 105(H) 74 - 99 mg/dL 05/08/2025 12:01 PM EDT [facility] BUN, Plasma 12 8 - 23 mg/dL 05/08/2025 12:01 PM EDT [facility] Creatinine, Plasma 0.82 0.60 - 1.10 mg/dL 05/08/2025 12:01 PM EDT [facility] BUN/Creatinine Ratio 15 05/08/2025 12:01 PM EDT [facility] Sodium, Plasma 137 136 - 145 mmol/L 05/08/2025 12:01 PM EDT [facility] Potassium, Plasma 3.7 3.6 - 4.9 mmol/L 05/08/2025 12:01 PM EDT [facility] Chloride, Plasma 103 97 - 107 mmol/L 05/08/2025 12:01 PM EDT [facility] CO2, Plasma 22 22 - 29 mmol/L 05/08/2025 12:01 PM EDT [facility] Anion Gap 12 6 - 16 mmol/L 05/08/2025 12:01 PM EDT [facility] Total Calcium, Plasma 9.0 8.9 - 10.2 mg/dL 05/08/2025 12:01 PM EDT [facility] eGFRcr 69.8 mL/min/1.7 3m*2 05/08/2025 12:01 PM EDT [facility] Comment:Reported eGFRcr in m L/min/1.73m2 is based the CKD-EPI 2020 equation that does not use a race coefficient. Blood Venous blood specimen / Unknown Venipuncture / Unknown 05/08/2025 11:26 AM EDT 05/08/2025 11:40 AM EDT us Colten Rod MD LAB BLOOD ORDERABLES Final Result [facility] [address] [place] [address] * MR Lumbar Spine wo IV Contrast (05/07/2025 9:15 PM EDT) Anatomical Region Laterality Modality L-spine Magnetic Resonan ce Impressions 05/07/2025 9:46 PM EDT Thoracic spine: 1. Acute fracture of the anterior-inferior corner of the T11 vertebral body, confirmed on recent outside CT scan. No cord compromise. 2. Extensive multilevel degenerative changes as detailed above. Moderate spinal canal stenosis at T10-11. Severe neuroforaminal stenosis at right T1-2. Lumbar spine: 1. Posterior metallic fusion spanning L1-S1 with L3-4 laminectomies. 2. No acute fracture. 3. Extensive multilevel degenerative changes as detailed above. Moderate spinal canal stenosis at T12-L1. Severe neural foraminal stenosis at bilateral L5-S1. CRITICAL RESULT: Yes COMMUNICATION: Findings were communicated to Dr. Ja Lawson on 05/07/2025 at 2145 hours by [employer]. Drafted by Bebe Burns MD on 05/07/2025 9:26 PM Final report signed by Bebe Burns MD on 05/07/2025 9:46 PM Narrative 05/07/2025 9:46 PM EDT CLINICAL INDICATION: Mid-back pain, prior compression fracture TECHNIQUE: Multiplanar multiecho sequences were obtained through the thoracic and lumbar spine utilizing T1 and T2 weighting without the administration of intravenous contrast. COMPARISON: Outside thoracic and lumbar spine CT performed 14 hours prior at [facility] Thoracic and lumbar spine MRI 03/03/2025 FINDINGS: Thoracic Spine: Diagnostic Quality: Adequate. Alignment: The bony alignment is normal. Marrow, Vertebrae and Intervertebral Discs: Linear T2 hyperintensity in the anterior-inferior corner of the T11 vertebral body is consistent with fracture, confirmed on recent outside CT scan. Vertebral body heights are normal. Multilevel disc desiccation and decreased disc heights. Avid T2 hyperintensity within the T11-12 and T12-L1 disc spaces is most likely related to advanced degenerative disease. Ligaments: The anterior and posterior longitudinal ligaments and interspinous ligaments are intact. Spinal Cord: The spinal cord is of normal caliber without abnormal intrinsic signal. Significant findings by level: Multilevel chronic disc/osteophyte complexes and ligamentum flavum thickening. Most pronounced spinal canal narrowing is moderate stenosis at T10-11 from broad disc bulge and ligamentum flavum thickening. Most pronounced neuroforaminal narrowing is severe stenosis at right T1-2 and ouloinpx-hv-hnqcjf stenosis at several mid thoracic levels. Prevertebral and Paraspinal Soft Tissues: Mild paravertebral edema at the T11 level, reactive around the T11 vertebral fracture. Lumbar Spine: Diagnostic Quality: Adequate. Anatomic Variants: None. Alignment: Mild anterolisthesis at T12-L1. Marrow, Vertebrae and Intervertebral Discs: Posterior metallic fusion spanning L1-S1. Multilevel disc desiccation and disc height loss, especially severe at right L3- 4 and left L4-5. L3 and L4 laminectomies. Vertebral body heights are normal. No abnormal marrow edema. Ligaments: The anterior and posterior longitudinal ligaments and interspinous ligaments are intact. Conus: The conus is of normal caliber without abnormal intrinsic signal. The conus terminates at the T12-L1 level. Significant findings by level: T12-L1: Broad disc bulge and moderate facet arthropathy. Moderate spinal canal narrowing. Mild bilateral neuroforaminal narrowing. L1-L2: Mild disc bulge and mild facet arthropathy. No significant stenosis. L2-L3: Mild disc bulge and moderate facet arthropathy. No significant spinal canal stenosis. Mild bilateral neuroforaminal narrowing. L3-L4: Mild disc bulge and facet ankylosis. Spinal canal is decompressed by laminectomy. Moderate right neuroforaminal narrowing. L4-L5: Mild disc bulge and facet ankylosis. Spinal canal is decompressed by laminectomy. Moderate left neuroforaminal stenosis. L5-S1: Mild disc bulge and moderate facet arthropathy. No significant spinal canal stenosis. Severe bilateral neural foraminal stenosis. Prevertebral and Paraspinal Soft Tissues: There is no prevertebral or paraspinal soft tissue swelling or mass. Procedure Note Bebe Burns MD - 05/07/2025 CLINICAL INDICATION: Mid-back pain, prior compression fracture TECHNIQUE: Multiplanar multiecho sequences were obtained through the thoracic andlumbar spine utilizing T1 and T2 weighting without the administration ofintravenous contrast. COMPARISON: Outside thoracic and lumbar spine CT performed 14 hours prior at [facility] Thoracic and lumbar spine MRI 03/03/2025 FINDINGS: Thoracic Spine: Diagnostic Quality: Adequate. Alignment: The bony alignment is normal. Marrow, Vertebrae and Intervertebral Discs: Linear T2 hyperintensity inthe anterior-inferior corner of the T11 vertebral body is consistent withfracture, confirmed on recent outside CT scan. Vertebral body heights arenormal. Multilevel disc desiccation and decreased disc heights. Avid U3spwswuyddiefyt within the T11-12 and T12-L1 disc spaces is most likelyrelated to advanced degenerative disease. Ligaments: The anterior and posterior longitudinal ligaments andinterspinous ligaments are intact. Spinal Cord: The spinal cord is of normal caliber without abnormalintrinsic signal. Significant findings by level: Multilevel chronic disc/osteophytecomplexes and ligamentum flavum thickening. Most pronounced spinal canalnarrowing is moderate stenosis at T10-11 from broad disc bulge andligamentum flavum thickening. Most pronounced neuroforaminal narrowing issevere stenosis at right T1-2 and jyzjdhzy-ij-nemcqo stenosis at severalmid thoracic levels. Prevertebral and Paraspinal Soft Tissues: Mild paravertebral edema at theT11 level, reactive around the T11 vertebral fracture. Lumbar Spine: Diagnostic Quality: Adequate. Anatomic Variants: None. Alignment: Mild anterolisthesis at T12-L1. Marrow, Vertebrae and Intervertebral Discs: Posterior metallic fusionspanning L1-S1. Multilevel disc desiccation and disc height loss,especially severe at right L3-4 and left L4-5. L3 and L4 laminectomies.Vertebral body heights are normal. No abnormal marrow edema. Ligaments: The anterior and posterior longitudinal ligaments andinterspinous ligaments are intact. Conus: The conus is of normal caliber without abnormal intrinsic signal.The conus terminates at the T12-L1 level. Significant findings by level: T12-L1: Broad disc bulge and moderate facet arthropathy. Moderate spinalcanal narrowing. Mild bilateral neuroforaminal narrowing. L1-L2: Mild disc bulge and mild facet arthropathy. No significantstenosis. L2-L3: Mild disc bulge and moderate facet arthropathy. No significantspinal canal stenosis. Mild bilateral neuroforaminal narrowing. L3-L4: Mild disc bulge and facet ankylosis. Spinal canal is decompressedby laminectomy. Moderate right neuroforaminal narrowing. L4-L5: Mild disc bulge and facet ankylosis. Spinal canal is decompressedby laminectomy. Moderate left neuroforaminal stenosis. L5-S1: Mild disc bulge and moderate facet arthropathy. No significantspinal canal stenosis. Severe bilateral neural foraminal stenosis. Prevertebral and Paraspinal Soft Tissues: There is no prevertebral orparaspinal soft tissue swelling or mass. IMPRESSION: Thoracic spine: 1. Acute fracture of the anterior-inferior corner of the T11 vertebralbody, confirmed on recent outside CT scan. No cord compromise. 2. Extensive multilevel degenerative changes as detailed above. Moderatespinal canal stenosis at T10-11. Severe neuroforaminal stenosis at rightT1-2. Lumbar spine: 1. Posterior metallic fusion spanning L1-S1 with L3-4 laminectomies. 2. No acute fracture. 3. Extensive multilevel degenerative changes as detailed above. Moderatespinal canal stenosis at T12-L1. Severe neural foraminal stenosis atbilateral L5-S1. CRITICAL RESULT: Yes COMMUNICATION: Findings were communicated to Dr. Ja Lawson on 05/07/2025 at 2145 hours byEpic message. Drafted by Bebe Burns MD on 05/07/2025 9:26 PM Final report signed by Bebe Burns MD on 05/07/2025 9:46 PM us Anjel Medina MD IMG MRI PROCEDURES Final Result * MR Thoracic Spine wo IV Contrast (05/07/2025 9:15 PM EDT) Anatomical Region Laterality Modality T-spine Magnetic Resonan ce Impressions 05/07/2025 9:46 PM EDT Thoracic spine: 1. Acute fracture of the anterior-inferior corner of the T11 vertebral body, confirmed on recent outside CT scan. No cord compromise. 2. Extensive multilevel degenerative changes as detailed above. Moderate spinal canal stenosis at T10-11. Severe neuroforaminal stenosis at right T1-2. Lumbar spine: 1. Posterior metallic fusion spanning L1-S1 with L3-4 laminectomies. 2. No acute fracture. 3. Extensive multilevel degenerative changes as detailed above. Moderate spinal canal stenosis at T12-L1. Severe neural foraminal stenosis at bilateral L5-S1. CRITICAL RESULT: Yes COMMUNICATION: Findings were communicated to Dr. Ja Lawson on 05/07/2025 at 2145 hours by [employer]. Drafted by Bebe Bruns MD on 05/07/2025 9:26 PM Final report signed by Bebe Burns MD on 05/07/2025 9:46 PM Narrative 05/07/2025 9:46 PM EDT CLINICAL INDICATION: Mid-back pain, prior compression fracture TECHNIQUE: Multiplanar multiecho sequences were obtained through the thoracic and lumbar spine utilizing T1 and T2 weighting without the administration of intravenous contrast. COMPARISON: Outside thoracic and lumbar spine CT performed 14 hours prior at [facility] Thoracic and lumbar spine MRI 03/03/2025 FINDINGS: Thoracic Spine: Diagnostic Quality: Adequate. Alignment: The bony alignment is normal. Marrow, Vertebrae and Intervertebral Discs: Linear T2 hyperintensity in the anterior-inferior corner of the T11 vertebral body is consistent with fracture, confirmed on recent outside CT scan. Vertebral body heights are normal. Multilevel disc desiccation and decreased disc heights. Avid T2 hyperintensity within the T11-12 and T12-L1 disc spaces is most likely related to advanced degenerative disease. Ligaments: The anterior and posterior longitudinal ligaments and interspinous ligaments are intact. Spinal Cord: The spinal cord is of normal caliber without abnormal intrinsic signal. Significant findings by level: Multilevel chronic disc/osteophyte complexes and ligamentum flavum thickening. Most pronounced spinal canal narrowing is moderate stenosis at T10-11 from broad disc bulge and ligamentum flavum thickening. Most pronounced neuroforaminal narrowing is severe stenosis at right T1-2 and kdkrkunu-dr-wjyimf stenosis at several mid thoracic levels. Prevertebral and Paraspinal Soft Tissues: Mild paravertebral edema at the T11 level, reactive around the T11 vertebral fracture. Lumbar Spine: Diagnostic Quality: Adequate. Anatomic Variants: None. Alignment: Mild anterolisthesis at T12-L1. Marrow, Vertebrae and Intervertebral Discs: Posterior metallic fusion spanning L1-S1. Multilevel disc desiccation and disc height loss, especially severe at right L3- 4 and left L4-5. L3 and L4 laminectomies. Vertebral body heights are normal. No abnormal marrow edema. Ligaments: The anterior and posterior longitudinal ligaments and interspinous ligaments are intact. Conus: The conus is of normal caliber without abnormal intrinsic signal. The conus terminates at the T12-L1 level. Significant findings by level: T12-L1: Broad disc bulge and moderate facet arthropathy. Moderate spinal canal narrowing. Mild bilateral neuroforaminal narrowing. L1-L2: Mild disc bulge and mild facet arthropathy. No significant stenosis. L2-L3: Mild disc bulge and moderate facet arthropathy. No significant spinal canal stenosis. Mild bilateral neuroforaminal narrowing. L3-L4: Mild disc bulge and facet ankylosis. Spinal canal is decompressed by laminectomy. Moderate right neuroforaminal narrowing. L4-L5: Mild disc bulge and facet ankylosis. Spinal canal is decompressed by laminectomy. Moderate left neuroforaminal stenosis. L5-S1: Mild disc bulge and moderate facet arthropathy. No significant spinal canal stenosis. Severe bilateral neural foraminal stenosis. Prevertebral and Paraspinal Soft Tissues: There is no prevertebral or paraspinal soft tissue swelling or mass. Procedure Note Bebe Burns MD - 05/07/2025 CLINICAL INDICATION: Mid-back pain, prior compression fracture TECHNIQUE: Multiplanar multiecho sequences were obtained through the thoracic andlumbar spine utilizing T1 and T2 weighting without the administration ofintravenous contrast. COMPARISON: Outside thoracic and lumbar spine CT performed 14 hours prior at [facility] Thoracic and lumbar spine MRI 03/03/2025 FINDINGS: Thoracic Spine: Diagnostic Quality: Adequate. Alignment: The bony alignment is normal. Marrow, Vertebrae and Intervertebral Discs: Linear T2 hyperintensity inthe anterior-inferior corner of the T11 vertebral body is consistent withfracture, confirmed on recent outside CT scan. Vertebral body heights arenormal. Multilevel disc desiccation and decreased disc heights. Avid [id number] within the T11-12 and T12-L1 disc spaces is most likelyrelated to advanced degenerative disease. Ligaments: The anterior and posterior longitudinal ligaments andinterspinous ligaments are intact. Spinal Cord: The spinal cord is of normal caliber without abnormalintrinsic signal. Significant findings by level: Multilevel chronic disc/osteophytecomplexes and ligamentum flavum thickening. Most pronounced spinal canalnarrowing is moderate stenosis at T10-11 from broad disc bulge andligamentum flavum thickening. Most pronounced neuroforaminal narrowing issevere stenosis at right T1-2 and escxrjkz-ll-jxqope stenosis at severalmid thoracic levels. Prevertebral and Paraspinal Soft Tissues: Mild paravertebral edema at theT11 level, reactive around the T11 vertebral fracture. Lumbar Spine: Diagnostic Quality: Adequate. Anatomic Variants: None. Alignment: Mild anterolisthesis at T12-L1. Marrow, Vertebrae and Intervertebral Discs: Posterior metallic fusionspanning L1-S1. Multilevel disc desiccation and disc height loss,especially severe at right L3-4 and left L4-5. L3 and L4 laminectomies.Vertebral body heights are normal. No abnormal marrow edema. Ligaments: The anterior and posterior longitudinal ligaments andinterspinous ligaments are intact. Conus: The conus is of normal caliber without abnormal intrinsic signal.The conus terminates at the T12-L1 level. Significant findings by level: T12-L1: Broad disc bulge and moderate facet arthropathy. Moderate spinalcanal narrowing. Mild bilateral neuroforaminal narrowing. L1-L2: Mild disc bulge and mild facet arthropathy. No significantstenosis. L2-L3: Mild disc bulge and moderate facet arthropathy. No significantspinal canal stenosis. Mild bilateral neuroforaminal narrowing. L3-L4: Mild disc bulge and facet ankylosis. Spinal canal is decompressedby laminectomy. Moderate right neuroforaminal narrowing. L4-L5: Mild disc bulge and facet ankylosis. Spinal canal is decompressedby laminectomy. Moderate left neuroforaminal stenosis. L5-S1: Mild disc bulge and moderate facet arthropathy. No significantspinal canal stenosis. Severe bilateral neural foraminal stenosis. Prevertebral and Paraspinal Soft Tissues: There is no prevertebral orparaspinal soft tissue swelling or mass. IMPRESSION: Thoracic spine: 1. Acute fracture of the anterior-inferior corner of the T11 vertebralbody, confirmed on recent outside CT scan. No cord compromise. 2. Extensive multilevel degenerative changes as detailed above. Moderatespinal canal stenosis at T10-11. Severe neuroforaminal stenosis at rightT1-2. Lumbar spine: 1. Posterior metallic fusion spanning L1-S1 with L3-4 laminectomies. 2. No acute fracture. 3. Extensive multilevel degenerative changes as detailed above. Moderatespinal canal stenosis at T12-L1. Severe neural foraminal stenosis atbilateral L5-S1. CRITICAL RESULT: Yes COMMUNICATION: Findings were communicated to Dr. Ja Lawson on 05/07/2025 at 2145 hours byEpic message. Drafted by Bebe Burns MD on 05/07/2025 9:26 PM Final report signed by Bebe Burns MD on 05/07/2025 9:46 PM us Anjel Medina MD IMG MRI PROCEDURES Final Result * XR Abdomen 1 View (05/07/2025 1:45 PM EDT) Anatomical Region Laterality Modality Body Digital Radiogra phy Impressions 05/07/2025 2:31 PM EDT Chest: Probable trace left effusion. No metallic density noted in the visualized liaxu-xz-[id number]. ABDOMEN: Nonobstructive bowel gas pattern. L2-S1 posterior spinal fusion hardware. Otherwise, no metallic density noted in the visualized wkdut-ud-bacr. CRITICAL RESULT: No. COMMUNICATION: Per this written report. Preliminary report signed by Sid Scott MD on 05/07/2025 2:10 PM By electronically signing this report, I, the attending physician, attest that I have personally reviewed the images/data for the above examination(s) and agree with the final edited report. Drafted by Sid Scott MD on 05/07/2025 2:07 PM Final report signed by Bryn Wayne MD on 05/07/2025 2:31 PM Narrative 05/07/2025 2:31 PM EDT CLINICAL INDICATION: mri TECHNIQUE: XR ABDOMEN 1 VIEW, XR CHEST 1 VIEW COMPARISON: Outside CTs same day Chest radiograph March 02, 2025 FINDINGS: Chest: The cardiac silhouette and mediastinal contours are within normal limits. Small left effusion. Bibasilar atelectasis. No pneumothorax. No focal consolidation. ABDOMEN: L2-S1 posterior spinal fusion hardware. No acute, displaced fracture of the pelvis. Bilateral hips are well approximated. Moderate degenerative change of the right hip. Gas-filled loops of large and small bowel are normal in caliber. No suspicious soft tissue findings. There is gas within the rectum. No suspicious abdominal calcifications. Procedure Note Bryn Wayne MD - 05/07/2025 CLINICAL INDICATION: mri TECHNIQUE: XR ABDOMEN 1 VIEW, XR CHEST 1 VIEW COMPARISON: Outside CTs same day Chest radiograph March 02, 2025 FINDINGS: Chest: The cardiac silhouette and mediastinal contours are within normal limits.Small left effusion. Bibasilar atelectasis. No pneumothorax. No focalconsolidation. ABDOMEN: L2-S1 posterior spinal fusion hardware. No acute, displaced fracture ofthe pelvis. Bilateral hips are well approximated. Moderate degenerativechange of the right hip. Gas-filled loops of large and small bowel arenormal in caliber. No suspicious soft tissue findings. There is gas withinthe rectum. No suspicious abdominal calcifications. IMPRESSION: Chest: Probable trace left effusion. No metallic density noted in the dexinpdxixfrhwf-nt-dsgi. ABDOMEN: Nonobstructive bowel gas pattern. L2-S1 posterior spinal fusion hardware. Otherwise, no metallic densitynoted in the visualized gjlym-nn-nzzr. CRITICAL RESULT: No. COMMUNICATION: Per this written report. Preliminary report signed by Sid Scott MD on 05/07/2025 2:10 PM By electronically signing this report, I, the attending physician, attestthat I have personally reviewed the images/data for the aboveexamination(s) and agree with the final edited report. Drafted by Sid Scott MD on 05/07/2025 2:07 PM Final report signed by Bryn Wayne MD on 05/07/2025 2:31 PM us Anjel Medina MD IMG XR PROCEDURES Final Result * XR Chest 1 View (05/07/2025 1:45 PM EDT) Anatomical Region Laterality Modality Chest Digital Radiogra phy Impressions 05/07/2025 2:31 PM EDT Chest: Probable trace left effusion. No metallic density noted in the visualized akplh-ag-oxew. ABDOMEN: Nonobstructive bowel gas pattern. L2-S1 posterior spinal fusion hardware. Otherwise, no metallic density noted in the visualized clpoi-du-tsvf. CRITICAL RESULT: No. COMMUNICATION: Per this written report. Preliminary report signed by Sid Scott MD on 05/07/2025 2:10 PM By electronically signing this report, I, the attending physician, attest that I have personally reviewed the images/data for the above examination(s) and agree with the final edited report. Drafted by Sid Scott MD on 05/07/2025 2:07 PM Final report signed by Bryn Wayne MD on 05/07/2025 2:31 PM Narrative 05/07/2025 2:31 PM EDT CLINICAL INDICATION: mri TECHNIQUE: XR ABDOMEN 1 VIEW, XR CHEST 1 VIEW COMPARISON: Outside CTs same day Chest radiograph March 02, 2025 FINDINGS: Chest: The cardiac silhouette and mediastinal contours are within normal limits. Small left effusion. Bibasilar atelectasis. No pneumothorax. No focal consolidation. ABDOMEN: L2-S1 posterior spinal fusion hardware. No acute, displaced fracture of the pelvis. Bilateral hips are well approximated. Moderate degenerative change of the right hip. Gas-filled loops of large and small bowel are normal in caliber. No suspicious soft tissue findings. There is gas within the rectum. No suspicious abdominal calcifications. Procedure Note Bryn Wayne MD - 05/07/2025 CLINICAL INDICATION: mri TECHNIQUE: XR ABDOMEN 1 VIEW, XR CHEST 1 VIEW COMPARISON: Outside CTs same day Chest radiograph March 02, 2025 FINDINGS: Chest: The cardiac silhouette and mediastinal contours are within normal limits.Small left effusion. Bibasilar atelectasis. No pneumothorax. No focalconsolidation. ABDOMEN: L2-S1 posterior spinal fusion hardware. No acute, displaced fracture ofthe pelvis. Bilateral hips are well approximated. Moderate degenerativechange of the right hip. Gas-filled loops of large and small bowel arenormal in caliber. No suspicious soft tissue findings. There is gas withinthe rectum. No suspicious abdominal calcifications. IMPRESSION: Chest: Probable trace left effusion. No metallic density noted in the figssvojfpalyka-gs-vduv. ABDOMEN: Nonobstructive bowel gas pattern. L2-S1 posterior spinal fusion hardware. Otherwise, no metallic densitynoted in the visualized toald-vx-mzlc. CRITICAL RESULT: No. COMMUNICATION: Per this written report. Preliminary report signed by Sid Scott MD on 05/07/2025 2:10 PM By electronically signing this report, I, the attending physician, attamadathat I have personally reviewed the images/data for the aboveexamination(s) and agree with the final edited report. Drafted by Sid Scott MD on 05/07/2025 2:07 PM Final report signed by Bryn Wayne MD on 05/07/2025 2:31 PM us Anjel Medina MD IMG XR PROCEDURES Final Result documented in this encounter Visit Diagnoses Diagnosis Fall, initial encounter- Primary Closed fracture of eleventh thoracic vertebra, unspecified fracture morphology, initial encounter ([facility] documented in this encounter Administered Medications Inactive Administered Medications - up to 3 most recent administrations Medication Order MAR Action Action Date Dose Rate Site acetaminophen (Tylenol) tablet 650 mg 650 mg, Oral, Every 6 hours PRN, Starting on Sat05/07/25 at 1414, Until Sat05/08/25 at 2342, STAT, mild pain, moderate pain Given 05/08/2025 9:22 AM EDT 650 mg aspirin chewable tablet 81 mg 81 mg, Oral, Daily, First dose on Sat05/08/25 at 0900, Until Discontinued, Routine atorvastatin (Lipitor) tablet 10 mg 10 mg, Oral, Nightly, First dose on Sat05/08/25 at 2100, Until Discontinued, Routine bisacodyl (Dulcolax) suppository 10 mg 10 mg, Rectal, Daily, First dose on Sat05/08/25 at 1130, Until Discontinued, Routine Given 05/08/2025 11:58 AM EDT 10 mg gabapentin (Neurontin) capsule 300 mg 300 mg, Oral, 2 times daily, First dose on Sat05/08/25 at 0900, Until Discontinued, Routine Given 05/08/2025 9:22 AM EDT 300 mg pantoprazole (Protonix) EC tablet 40 mg 40 mg, Oral, Daily, First dose on Sat05/08/25 at 0900, Until Discontinued, Routine Given 05/08/2025 9:22 AM EDT 40 mg sodium chloride 0.9 % flush 10 mL 10 mL, Intravenous, Every 12 hours, First dose on Sat05/07/25 at 1420, Until Discontinued, Routine Given 05/07/2025 3:34 PM EDT 10 mL sodium chloride 0.9 % flush 10 mL 10 mL, Intravenous, As needed, Starting on Sat05/07/25 at 1413, Until 05/08/25 at 2342, Routine, line care sodium phosphate (Fleet) enema 133 mL 133 mL (1 enema), Rectal, Once, 1 dose, On 05/08/25 at 1335, Routine Given 05/08/2025 1:49 PM EDT 133 mL documented in this encounter Active and Recently Administered Medications Times are shown in EDT. Scheduled Medication Order 05/06/2025 05/07/2025 05/08/2025 aspirin chewable tablet 81 mg 81 mg, Oral, Daily, First dose on 05/08/25 at 0900, Until Discontinued, Routine 0921 (Not Given - Provider: Betty Ch RN - Reason: Hold for condition: must add comment - Comment: upcoming sx, provider notified, asked to hold for now) atorvastatin (Lipitor) tablet 10 mg 10 mg, Oral, Nightly, First dose on 05/08/25 at 2100, Until Discontinued, Routine 2100 (Canceled Entry - Provider: Automatic Discharge Provider - Comment: Automatically canceled at discontinue of medication order) bisacodyl (Dulcolax) suppository 10 mg 10 mg, Rectal, Daily, First dose on 05/08/25 at 1130, Until Discontinued, Routine 1158 (Given - Provid er: Betty Ch RN) gabapentin (Neurontin) capsule 300 mg 300 mg, Oral, 2 times daily, First dose on 05/08/25 at 0900, Until Discontinued, Routine 0922 (Given - Provid er: Betty Ch RN)2100 (Canceled Entry - Provider: Automatic Discharge Provider - Comment: Automatically canceled at discontinue of medication order) pantoprazole (Protonix) EC tablet 40 mg 40 mg, Oral, Daily, First dose on 05/08/25 at 0900, Until Discontinued, Routine 0922 (Given - Provid er: Betty Ch RN) sodium chloride 0.9 % flush 10 mL(Linked Group 1) 10 mL, Intravenous, Every 12 hours, First dose on Sat05/07/25 at 1420, Until Discontinued, Routine 1534 (Given - Provider: Sid Baker, RN) 0220 (Canceled Entry - Provider: Slime Santacruz RN)1719 (Not Given - Provider: Betyt Ch RN - Reason: Hold for condition: must add comment - Comment: given with am assessment) sodium phosphate (Fleet) enema 133 mL (COMPLETED) 133 mL (1 enema), Rectal, Once, 1 dose, On 05/08/25 at 1335, Routine 1349 (Given - Provid er: Betty Ch RN) PRN Medication Order 05/06/2025 05/07/2025 05/08/2025 acetaminophen (Tylenol) tablet 650 mg 650 mg, Oral, Every 6 hours PRN, Starting on Sat05/07/25 at 1414, Until 05/08/25 at 2342, STAT, mild pain, moderate pain 0922 (Given - Provid er: Betty Ch RN) sodium chloride 0.9 % flush 10 mL(Linked Group 1) 10 mL, Intravenous, As needed, Starting on Sat05/07/25 at 1413, Until 05/08/25 at 2342, Routine, line care Linked Groups Order Group 1: Insert peripheral IV (CANCELED) Once, On Sat05/07/25 at 1414, For 1 occurrence And Saline lock IV (CANCELED) Once, On Sat05/07/25 at 1414, For 1 occurrence And sodium chloride 0.9 % flush 10 mLJump to med 10 mL, Intravenous, Every 12 hours, First dose on Sat05/07/25 at 1420, Until Discontinued, Routine And sodium chloride 0.9 % flush 10 mLJump to med 10 mL, Intravenous, As needed, Starting on Sat05/07/25 at 1413, Until 05/08/25 at 2342, Routine, line care documented in this encounter Additional Health Concerns Assessment Noted Time A Body Mass Index follow-up plan has been documented for the patient 04/06/2025 12:14 PM EDT documented as of this encounter Care Teams Enterprise Infrastructure Architect Relationship Specialty Start Date End Date Dg Kang MD [id number] [facility] PCP - General 02/03/21 Amada Rose APRN [id number] [place] [id number] Nurse Practitioner Neurosurgery 04/06/25 documented as of this encounter
[2025-05-11 04:45] VITALS: BP 130/64; PULSE 72; RESP 16; TEMP 36.6; O2SAT 96; BMI 25.8
--- NOTE | 2025-05-11 04:45 | XR_ITS ---
PROCEDURE INFORMATION: Exam: XR Chest Exam date and time: 05/11/2025 5:03 AM Age: 85 years old Clinical indication: Injury or trauma; Fall TECHNIQUE: Imaging protocol: Radiologic exam of the chest. Views: 1 view. COMPARISON: CR XR CHEST PORTABLE 05/10/2025 10:12 AM FINDINGS: Lungs: Unremarkable. No consolidation. Pleural spaces: Unremarkable. No pleural effusion. No pneumothorax. Heart/Mediastinum: Unremarkable. No cardiomegaly. Bones/joints: Severe osteoarthritis bilateral shoulders. Advanced degenerative change spine. IMPRESSION: No acute findings.
--- NOTE | 2025-05-11 04:45 | CT_ITS ---
PROCEDURE INFORMATION: Exam: CT Cervical Spine Without Contrast Exam date and time: 05/11/2025 5:13 AM Age: 85 years old Clinical indication: Injury or trauma; Fall TECHNIQUE: Imaging protocol: Computed tomography of the cervical spine without contrast. Radiation optimization: All CT scans at this facility use at least one of these dose optimization techniques: automated exposure control; mA and/or kV adjustment per patient size (includes targeted exams where dose is matched to clinical indication); or iterative reconstruction. COMPARISON: CT CERVICAL SPINE WO CON 05/10/2025 9:32 AM FINDINGS: Bones: Bone mineralization is decreased, suggestive of osteopenia. No acute cervical spine fracture is identified. There is minimal anterolisthesis of C3 on C4 and C4 on C5 due to facet arthropathy. Severe degenerative changes of the cervical spine are present. There is no severe spinal canal stenosis. Multilevel neural foraminal narrowing from uncinate spurring and facet arthropathy is noted. Lungs: Minor nonspecific patchy airspace disease is present in the right lung apex. Vasculature: Atherosclerotic calcifications are present at the carotid bifurcations. Soft tissues: Unremarkable. IMPRESSION: 1. No acute cervical spine fracture. 2. Chronic findings as discussed above.
--- NOTE | 2025-05-11 04:45 | CT_ITS ---
PROCEDURE INFORMATION: Exam: CT Head Without Contrast Exam date and time: 05/11/2025 5:10 AM Age: 85 years old Clinical indication: Injury or trauma; Fall TECHNIQUE: Imaging protocol: Computed tomography of the head without contrast. Radiation optimization: All CT scans at this facility use at least one of these dose optimization techniques: automated exposure control; mA and/or kV adjustment per patient size (includes targeted exams where dose is matched to clinical indication); or iterative reconstruction. COMPARISON: CT HEAD/BRAIN WO CON 05/10/2025 9:29 AM FINDINGS: Brain: There is no acute intracranial hemorrhage, cerebral edema, or midline shift. Chronic microvascular ischemic changes are seen in the periventricular white matter. Age-related cerebral and cerebellar volume loss is present. Cerebral ventricles: Mild ex vacuo dilation of the lateral and third ventricles is noted. Paranasal sinuses: There is no acute sinusitis. Mastoid air cells: The mastoid air cells are clear. Orbital cavities: The included orbital structures are unremarkable. Bones: Unremarkable. No acute fracture. Soft tissues: Unremarkable. IMPRESSION: 1. No acute intracranial abnormality. 2. Atrophy and chronic deep white matter ischemic changes.
--- NOTE | 2025-05-11 04:45 | XR_ITS ---
PROCEDURE INFORMATION: Exam: XR Pelvis Exam date and time: 05/11/2025 5:03 AM Age: 85 years old Clinical indication: Injury or trauma; Fall TECHNIQUE: Imaging protocol: Radiologic exam of the pelvis. Views: 1 or 2 view. COMPARISON: CR XR PELVIS 1-2V 05/10/2025 10:12 AM FINDINGS: Bones/joints: Advanced osteoarthritis bilateral hips. Extensive postsurgical change lumbar spine. Soft tissues: Unremarkable. IMPRESSION: Advanced osteoarthritis bilateral hips.
--- NOTE | 2025-05-11 04:49 | ED_ITS ---
Discharge Plan Disposition Patient Disposition: Xfer SNF Condition: Good Prescriptions Prescriptions: No Action diclofenac sodium 1 % gel 4 g topical QID PRN (Reason: Arthritis pain of knee) Qty: 100 5RF Rx Instructions: apply to single knee, ankle, foot; for foot includes sole/toes/top of foot lactulose 10 gram/15 mL solution 20 g PO BID PRN (Reason: constipation) Qty: 3785 3RF levalbuterol HCl 1.25 mg/3 mL solution for nebulization See Rx Instructions .ROUTE .COMPLEX Qty: 270 1RF Dose Instruction: INHALE THE CONTENTS OF 1 VIAL VIA NEBULIZER THREE TIMES DAILY NEEDED FOR ASTHMA Rx Instructions: INHALE THE CONTENTS OF 1 VIAL VIA NEBULIZER THREE TIMES DAILY NEEDED FOR ASTHMA gabapentin 300 mg capsule 600 mg PO HS Qty: 60 3RF memantine [Namenda] 10 mg tablet 10 mg PO BID Qty: 60 5RF losartan 100 mg tablet See Rx Instructions .ROUTE .COMPLEX Qty: 90 1RF Dose Instruction: TAKE ONE TABLET BY MOUTH EVERY DAY Rx Instructions: TAKE ONE TABLET BY MOUTH EVERY DAY primidone 250 mg tablet See Rx Instructions .ROUTE .COMPLEX Qty: 90 1RF Dose Instruction: TAKE ONE TABLET BY MOUTH EVERY DAY AT BEDTIME Rx Instructions: TAKE ONE TABLET BY MOUTH EVERY DAY AT BEDTIME simvastatin 20 mg tablet See Rx Instructions .ROUTE .COMPLEX Qty: 90 1RF Dose Instruction: TAKE ONE TABLET BY MOUTH EVERY DAY AT BEDTIME Rx Instructions: TAKE ONE TABLET BY MOUTH EVERY DAY AT BEDTIME pantoprazole 40 mg tablet,delayed release (DR/EC) See Rx Instructions .ROUTE .COMPLEX Qty: 90 1RF Dose Instruction: TAKE ONE TABLET BY MOUTH EVERY DAY Rx Instructions: TAKE ONE TABLET BY MOUTH EVERY DAY propranolol 60 mg tablet See Rx Instructions .ROUTE .COMPLEX Qty: 120 1RF Dose Instruction: TAKE ONE TABLET BY MOUTH TWICE DAILY Rx Instructions: TAKE ONE TABLET BY MOUTH TWICE DAILY Activity Restrictions/Add. Instructions Additional Instructions/Restrictions: Kelley was evaluated in the ER and is believed to be appropriate for discharge at this time. She needs to continue wearing the back brace anytime she is out of bed. Please monitor very closely that she does not attempt to get up or ambulate without assistance. Please have her reevaluated by the primary care doctor in 24 hours. She also needs to follow-up with the neurosurgery spine team as perviously scheduled on 05/18/2025. She should return to the ER with any new, worsening, or otherwise concerning symptoms. Clinical Impressions Clinical Impression: Fall Print Language Print Language: Belarusian Discharge ED Provider: Jozef Joseph Adult HPI General Chief complaint: Fall Stated complaint: Fall Time Seen by Provider: 05/11/25 04:45 Mode of Arrival: EMS Source of Information: Patient Description of Symptoms (Recalled from ER Triage Doc. by RN): pt presents to the ED d/t complaints of unwitnesed fall. pt has no complaints of pain. History of Present Illness HPI narrative: 85 year old female with history of alzheimers, frequent falls, hyperlipidemia, hypertension who is a new resident of [facility] re[facility] presents to the ER with concerns of mechanical fall. I called the facility to discuss this incident with her nurse. I spoke with her bedside nurse, NITIN Alas. She reports that shortly prior to arrival they heard a big crash down the hallway and went to check finding the patient wedged between a family and her neighbors bed. Patient was conscious. Unclear whether she struck her head. She does not take any blood thinners. They report patient is not supposed to ambulate independently but was found after getting herself up to go to the bathroom. She is typically supposed to use a cane. EMS brought patient to the ER. They report no medications given during transportation, stable vitals. On arrival to the ER patient reports no pain, she is fully oriented but does not know how she fell. She denies any numbness, tingling, or weakness, no headache or dizziness, no chest pain or abdominal pain. Patient has a history of previous thoracic spine fracture for which she wears a brace when ambulating but does not wear it at night. She denies any back pain. No other complaints or concerns. This is the second time in 24 hours that she has been evaluated in this ER for unwitnessed mechanical fall. Related Data Previous Rx's ?Medication ?Instructions ?Recorded diclofenac sodium 1 % topical gel 4 g topical QID PRN Arthritis pain 04/29/24 of knee #100 grams levalbuterol HCl 1.25 mg/3 mL See Rx Instructions .Rou te 09/25/24 solution for nebulization .COMPLEX #270 mL gabapentin 300 mg capsule 600 mg (2 x 300 mg) PO HS #6 0 caps 03/04/25 memantine 10 mg tablet (Namenda) 10 mg PO BID #60 tabs 03/04/25 losartan 100 mg tablet See Rx Instructions .Route 0 04/01/25 .COMPLEX #90 tabs primidone 250 mg tablet See Rx Instructions .Route 0 04/01/25 .COMPLEX #90 tabs simvastatin 20 mg tablet See Rx Instructions .Route 0 04/01/25 .COMPLEX #90 tabs lactulose 10 gram/15 mL oral 20 g (30 mL) PO BID PRN 0 04/29/25 solution constipation #3,785 mL pantoprazole 40 mg tablet,delayed See Rx Instructions .Route 05/06/25 release .COMPLEX #90 tabs propranolol 60 mg tablet See Rx Instructions .Route 0 05/06/25 .COMPLEX #120 tabs Allergies Allergy/AdvReac Type Severity Reaction Status Date / Time glucosamine Allergy Unknown BOWELS Verified 04/29/25 11:01 BLEEDING Sulfa (Sulfonamide Allergy Unknown Verified 04/29/25 11:01 Antibiotics) donepezil Allergy Verified 04/29/25 11:01 Penicillins Allergy Verified 04/29/25 11:01 sulfamethoxazole AdvReac Verified 04/29/25 11:01 [facility] Disclaimer: The information contained in this section may have been updated after the patient was seen, as this information can be updated by other users. 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) Smoking Status: Unknown if ever smoked alcohol intake: never substance use type: denies use current occupational status: other Travel in the last 8 weeks?: None household members: none housing: house current occupational exposures/hazards: No caffeine: No Have you lived/traveled outside US in past 30 days?: No Contact w/someone who lives/traveled outside US past 30 days?: No Exposure to someone with infectious disease in past 14 days?: No Do you have a fever (greater than 100.4 F or 38 C)?: No Have you tested positive for COVID-19?: No Exposed to someone with COVID-19 in past 14 days?: No Do you have a sore throat?: No Do you have a cough?: No Do you have any weakness?: No Do you have any diarrhea?: No Are you experiencing any unusual bleeding?: No Do you have any muscle aches/pain?: No Do you have any abdominal pain?: No Are you experiencing loss of taste or smell?: No Other Medical History Have you received the Flu Vaccine for this season: Yes Have you received the Pneumonia Vaccine: Yes ROS Obtained: Yes Systems reviewed as appropriate & no additional complaints except as documented per HPI Physical Exam General General appearance: alert and in no apparent distress Head Head exam: atraumatic and normocephalic Eye Eye exam: Present PERRL and EOMI; Absent nystagmus ENT ENT exam: Present mucous membranes moist Neck Neck exam: Present normal inspection and full ROM; Absent tenderness Chest Chest inspection: Present symmetric chest wall rise; Absent tenderness Respiratory Respiratory exam: Present normal lung sounds bilaterally; Absent respiratory distress, wheezes or stridor Cardiovascular Cardiovascular exam: Present regular rate and normal rhythm Abdominal Exam Abdominal exam: Present soft; Absent distention, tenderness, guarding or rebound Extremities Exam Extremities exam: Present full ROM; Absent tenderness, edema or joint swelling Back Exam Back exam: Absent tenderness, CVA tenderness (R), CVA tenderness (L), paraspinal tenderness or vertebral tenderness Neurological Exam Neurological exam: Present alert and oriented X3 (Oriented to self, location, year, does not recall the events of her fall prior to arrival. ); Absent motor sensory deficit Psychiatric Psychiatric exam: Present normal affect and normal mood Skin Skin exam: Present warm, dry and other (sacral bedsore appears to be stage II) Medical Decision Making Medical Records Medical records reviewed: Yes I reviewed the patient's medical records. Screening: Per USPSTF and CDC recommendations, given the prevalence of disease in our region, it is our hospital?s policy to screen for HIV and viral Hepatitis for all patients aged 18 and over and those with ongoing risk factors. MR Comment: CT imaging of head and axial spine from 05/10/2025 negative for acute osseous injury. Similar imaging from 05/07/2025 showed what appeared to be extension of T11 into T12 fracture. With these findings patient was transferred to ER for further evaluation but after evaluation was then sent back to [facility]. Review of records from demonstrate patient had CT and MRI imaging while at , images were reviewed in detail by the neurosurgery spine team, they do not recommend any acute neurosurgical intervention, recommend follow-up as scheduled on 05/18/2025 with the neurosurgery clinic, recommended to continue TLSO brace use out of bed as previous, patient discharged on 05/08/25 [place] Inquiry Pt receiving controlled substance: No Vital Signs: 05/11/25 04:45 Temperature 97.8 F Temperature Source Oral Pulse Rate [Right Radial] 72 Respiratory Rate 16 Blood Pressure [Right Arm] 130/64 Blood Pressure Mean [Right Arm] 86 Blood Pressure Position [Right Arm] Supine 02 Sat by Pulse Oximetry 96 Oxygen Delivery Method Room Air Orders (Tests/Meds): ORDERS Category Date Time Status CT cervical spine wo con Stat Cat Scan 05/11/25 04:[address] head/brain wo con Stat Cat Scan 05/11/25 04:45 Completed CXR --portable [XR chest portable] Stat Exams 05/11/25 04:45 Completed XR pelvis 1-2V Stat Exams 05/11/25 04:45 Completed Medical Decision Narrative: In summary, this 85-year-old female with comorbidities described in the HPI presents to the emergency department today with concerns of mechanical fall at [facility] shortly prior to arrival. On initial evaluation patient is hemodynamically stable, afebrile, alert, fully oriented but does not recall the specific details of the fall, no complaints of pain, physical exam overall is atraumatic with full range of motion, atraumatic head, no tenderness of the C, T, or L-spine, no evidence of injury to the back, no chest wall tenderness or abnormality, benign abdomen, extremities appear without acute injury. Sacral decubitus ulcer present. Differential diagnosis includes but is not limited to mechanical fall, intracranial bleed, skull fracture, C-spine injury, I considered the possibility of other injury but patient has no complaints of pain and no tenderness including throughout her thoracic and lumbar spine which I carefully examined. Based on these concerns, I ordered CT imaging of the head and C-spine as well as x-rays of the chest and pelvis. I do not believe patient requires additional axial spine images at this time since she has no pain or tenderness. She also has no neurologic deficits which is very reassuring. She had imaging of the axial spine within the last 24 hours and with no new complaints I do not believe additional imaging is indicated at this time. She is well-appearing, hemodynamically stable, afebrile, so I have low suspicion for acute metabolic abnormality causing her falls especially since she is a known fall risk, is supposed to ambulate with assistance, and is not supposed to be up or out of bed independently. I do not believe she requires serum workup at this time. Chest x-ray personally interpreted does not demonstrate acute intrathoracic abnormality, see radiology read for final interpretation. Pelvis x-ray personally interpreted demonstrate degenerative changes of bilateral hips but no acute osseous injury, see radiology read for final interpretation. CT head personally interpreted does not demonstrate acute bleed or skull fracture, see radiology report, interpretation. CT cervical spine personally interpreted does demonstrate degenerative changes but not demonstrate acute traumatic injury. See radiology read for final interpretation. C-spine cleared by me. Patient is appropriate for discharge at this time. She is resting comfortably and is at her baseline. She has no new abnormalities on repeat exam and no new complaints or concerns. Instructions for discharge including symptomatic monitoring, follow-up including to maintain appointment with neurosurgery spine team at on 05/18/2025, and return precautions were [facility] with [facility] and provided in written form. Report given to her bedside nurse Evette. They indicated understanding and the patient was discharged in stable condition. Critical Care Critical Care Time Critical Care Time: No
--- OUTSIDE RECORDS SUMMARY | 2025-05-11 04:51 | XMS_ITS ---
Author Name Auto Generated, Auto Generated Organization [facility] Address [address] [place] [address] Phone [phone] Care Team Providers Care Personnel Officer Name Role Phone Anjel Bailey Unavailable [phone] Functional Status No Results Mental Status No [...]
--- OUTSIDE RECORDS SUMMARY | 2025-05-11 04:52 | XMS_ITS | Encounter Summary ---
Author Organization Healthcare Address [address] [place] [address] Care Team Providers Care Inspector Wreath Name Role Phone Dg Kang MD Primary Care Provider [phone] Amada Rose SEALING MACHINE OPERATOR Unavailable [phone] Encounter Details Date Type Department Care Team (Late st Contact Info) Description 05/07/2025 Orders Only External Location [address] [place] [address] Du Mcmahan MD [address] [place] [address] 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 Tobacco Use Types Packs/Day Years [...] and Family Not on file 03/05/2025 Attends Amish Services Not on file 03/05 Active Member [...] any [facility] in the [facility] were [facility] homeless or living in [...] Computed Tomogra phy 05/07/2025 6:26 AM EDT us Du Mcmahan MD IMG CT PROCEDURES Final Result documented in this encounter Visit Diagnoses Not on filedocumented in this encounter Additional Health Concerns Assessment Noted Time A Body Mass Index follow-up plan has been documented for the patient 04/06/2025 12:14 PM EDT documented as of this encounter Care Teams Inspector Wreath Relationship Specialty Start Date End Date Dg Kang MD [facility] [address] [place] [id number] PCP - General 02/03/21 Amada Rose APRN [address] [facility] [address] [place] [address] Nurse Practitioner Neurosurgery 04/06/25 documented as of this encounter
--- OUTSIDE RECORDS SUMMARY | 2025-05-11 04:52 | XMS_ITS | Encounter Summary ---
Author Organization Healthcare Address [address] [place] [address] Care Team Providers Care Cook Vegetable Name Role Phone Dg Kang MD Primary Care Provider [phone] Amada Rose ODD JOB LABORER Unavailable [phone] Encounter Details Date Type Department Care Team (Late st Contact Info) Description 05/07/2025 Orders Only External Location [address] [place] [address] Du Mcmahan MD [address] [place] [address] 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 Tobacco Use Types Packs/Day Years [...] time in the past 12 m [facility], were you homeless or living in [...] Computed Tomogra phy 05/07/2025 6:23 AM EDT us Du Mcmahan MD IMG CT PROCEDURES Final Result documented in this encounter Visit Diagnoses Not on filedocumented in this encounter Additional Health Concerns Assessment Noted Time A Body Mass Index follow-up plan has been documented for the patient 04/06/2025 12:14 PM EDT documented as of this encounter Care Teams Cook Vegetable Relationship Specialty Start Date End Date Dg Kang MD [facility] [address] [place] [id number] PCP - General 02/03/21 Amada Rose APRN [address] [facility] [address] [place] [address] Nurse Practitioner Neurosurgery 04/06/25 documented as of this encounter
--- OUTSIDE RECORDS SUMMARY | 2025-05-11 04:52 | XMS_ITS | Encounter Summary ---
Author Organization Healthcare Address [address] [place] [address] Care Team Providers Care Reclaimer Name Role Phone Dg Kang MD Primary Care Provider [phone] Amada Rose DIRECTOR OF DIGITAL PLATFORMS Unavailable [phone] Encounter Details Date Type Department Care Team (Late st Contact Info) Description 05/07/2025 Orders Only External Location [address] [place] [address] Du Mcmahan MD [address] [place] [address] [place] [address] 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 Tobacco Use Types Packs/Day Years [...] and Family Not on file 03/05/2025 Attends Denominational Services Not on file 03/05 Active Member [...] any time in the past 12 m [facility], were you homeless or living [...] Computed Tomogra phy 05/07/2025 6:21 AM EDT us Du Mcmahan MD IMG CT PROCEDURES Final Result documented in this encounter Visit Diagnoses Not on filedocumented in this encounter Additional Health Concerns Assessment Noted Time A Body Mass Index follow-up plan has been documented for the patient 04/06/2025 12:14 PM EDT documented as of this encounter Care Teams Reclaimer Relationship Specialty Start Date End Date Dg Kang MD [facility] [address] [place] [id number] PCP - General 02/03/21 Amada Rose APRN [address] [facility] [address] [place] [address] Nurse Practitioner Neurosurgery 04/06/25 documented as of this encounter
--- OUTSIDE RECORDS SUMMARY | 2025-05-11 04:52 | XMS_ITS | Encounter Summary ---
Author Organization Healthcare Address [address] [place] [address] Care Team Providers Care Circular Distributor Name Role Phone Dg Kang MD Primary Care Provider [phone] Amada Rose CREATIVE/ART DIRECTOR Unavailable [phone] Encounter Details Date Type Department Care Team [...] any time in the past 12 m [facility], were you homeless or [...] on file documented as of this encounter Visit Diagnoses Not on filedocumented in this encounter Additional Health Concerns Assessment Noted Time A Body Mass Index follow-up plan has been documented for the patient 04/06/2025 12:14 PM EDT documented as of this encounter Care Teams Circular Distributor Relationship Specialty Start Date End Date Dg Kang MD [facility] [place] [address] [place] [address] PCP - General 02/03/21 Amada Rose APRN [address] [address] Nurse Practitioner Neurosurgery 04/06/25 documented as of this encounter
--- OUTSIDE RECORDS SUMMARY | 2025-05-11 04:52 | XMS_ITS | Encounter Summary ---
Author Organization Healthcare Address [address] [place] [address] Care Team Providers Care Development Educator Name Role Phone Dg Kang MD Primary Care Provider [phone] Amada Rose MD PEDIATRIC ALLERGIST Unavailable [phone] Encounter Details Date Type Department Care Team [...] and Family Not on file 03/05/2025 Attends Confucianist Services Not on file 03/05 Active Member [...] time in the past 12 m [facility], were you homeless or living in a longterm (including now)? No 03/05/2025 Utilities Answer Date [...] documented as of this encounter Care Teams Development Educator Relationship Specialty Start Date End Date Dg Kang MD [facility] [place] [address] [place] [address] PCP - General 02/03/21 Amada Rose APRN [address] [address] Nurse Practitioner Neurosurgery 04/06/25 documented as of this encounter
--- OUTSIDE RECORDS SUMMARY | 2025-05-11 04:52 | XMS_ITS | Encounter Summary ---
Author Organization Healthcare Address [address] [place] [address] Care Team Providers Care Fifth Hand Name Role Phone Dg Kang MD Primary Care Provider [phone] Amada Rose SPECIAL EDUCATION SUPERINTENDENT Unavailable [phone] Reason for Visit * Reason Onset Date Comments HCN - Patient Message 04/08/2025 Encounter Details Date Type Department Care Team (Late st Contact Info) Description 04/08/2025 Telephone [facility] [address] [place] [address] Amada Rose, SPECIAL EDUCATION SUPERINTENDENT [address] [place] [address] HCN - Patient Message Social [...] any time in the past 12 m [facility], were you homeless or living in a fpc (including now)? No 03/05/2025 Utilities Answer Date Recorded In the past 12 months has th e code-laboration, [employer], oil, or water [employer] threatened to shut off services in your [...] time of day to reach caller: Leah [phone] Note: Please do not reply to this message. Follow-up communication and further actions as a result of this message need to be communicated with the patient directly, if the patient is not active onMyChart. If the patient is active on MyChart, they will receive notification of the communication/outcome via [employer]. documented in this encounter Plan of Treatment Not on file documented as of this encounter Visit Diagnoses Not on filedocumented in this encounter Additional Health Concerns Assessment Noted Time A Body Mass Index follow-up plan has been documented for the patient 04/06/2025 12:14 PM EDT documented as of this encounter Care Teams Fifth Hand Relationship Specialty Start Date End Date Dg Kang MD [facility] [place] [address] [place] [address] PCP - General 02/03/21 Amada Rose APRN [address] [place] [address] Nurse Practitioner Neurosurgery 04/06/25 documented as of this encounter
--- OUTSIDE RECORDS SUMMARY | 2025-05-11 04:52 | XMS_ITS | Encounter Summary ---
Author Organization Healthcare Address [address] [place] [address] Care Team Providers Care Water Hauler Name Role Phone Dg Kang MD Primary Care Provider [phone] Amada Rose ORACLE EBS CONSULTANT Unavailable [phone] Encounter Details Date Type Department Care Team (Late st Contact Info) Description 05/07/2025 Orders Only External Location [address] [place] [address] Du Mcmahan MD [address] [place] [address] 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 Tobacco Use Types Packs/Day Years [...] and Family Not on file 03/05/2025 Attends [employer] Not on file 03/05 Active Member [...] any time in the past 12 m [facility], were you homeless or living [...] documented as of this encounter Care Teams Water Hauler Relationship Specialty Start Date End Date Dg Kang MD [facility] [address] [place] [id number] PCP - General 02/03/21 Amada Rose APRN [address] [facility] [address] [place] [address] Nurse Practitioner Neurosurgery 04/06/25 documented as of this encounter
--- OUTSIDE RECORDS SUMMARY | 2025-05-11 04:53 | XMS_ITS | Encounter Summary ---
Author Organization Healthcare Address [address] [place] [address] Care Team Providers Care Relocation Manager Name Role Phone Dg Kang MD Primary Care Provider [phone] Amada Rose ARMORED CAR MESSENGER Unavailable [phone] Encounter Details Date Type Department Care Team (Late st Contact Info) Description 05/07/2025 Orders Only External Location [address] [place] [address] Du Mcmahan MD [address] [place] [address] [place] [address] 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 Tobacco Use Types Packs/Day Years [...] and Family Not on file 03/05/2025 Attends [employer] Services Not on file 03/05 Active Member [...] time in the past 12 m [facility], were you homeless or living [...] Computed Tomogra phy 05/07/2025 6:29 AM EDT us Du Mcmahan MD IMG CT PROCEDURES Final Result documented in this encounter Visit Diagnoses Not on filedocumented in this encounter Additional Health Concerns Assessment Noted Time A Body Mass Index follow-up plan has been documented for the patient 04/06/2025 12:14 PM EDT documented as of this encounter Care Teams Relocation Manager Relationship Specialty Start Date End Date Dg Kang MD [facility] [address] [place] [id number] PCP - General 02/03/21 Amada Rose APRN [address] [facility] [address] [place] [address] Nurse Practitioner Neurosurgery 04/06/25 documented as of this encounter
--- OUTSIDE RECORDS SUMMARY | 2025-05-11 04:53 | XMS_ITS | Clinical Summary ---
Author Organization [facility] [place] Address [address] [place] [address] Care Team Providers Care Water Pollution Scientist Name Role Phone Dg Kang MD Primary Care Provider [phone] Amada Rose SIGNAL APPRENTICE Unavailable [phone] Allergies Active Allergy Reactions Criticality Noted Date [...] - Please have patient follow up at [facility] with Neurosurgery NANETTE in 4-6 weeks with AP/Lateral XR of the lumbar spine and AP/Lateral XR of the thoracic spine: [facility] [place] ([facility]) Clinic, [address], 1st floor, [facility]. [address] [place] [address] #[phone] HTN (hypertension) 03/03/2025 Overview (03/10/2025): Assessment & [...] Encounters Date Type Department Care Team Description 05/10/2025 Telephone OR Clinic [facility] [address], [address] [place] [address] Amada Rose APRN HCN - Patient Message (Return call) 05/07/2025 10:06 AM EDT - 05/08/2025 8:50 PM EDT Hospital Encounter [facility] Emergency Department [address] [place] [address] Anjel Medina MD Buckingham, Bradley P, MD Bronner, Jonathan M, MD Carter, Craig T, DO Fall, initial encounter (Primary Dx); Closed fracture of eleventh thoracic vertebra, unspecified fracture morphology, initial encounter ([facility]) Discharge Disposition: Home or Self Care 05/07/2025 Travel 05/07/2025 Orders Only External Location [address] [place] [id number] Du Mcmahan MD 05/07/2025 Orders Only External Location [address] [place] [phone] Du Mcmahan MD 05/07/2025 Orders Only External Location [address] [place] [address] Du Mcmahan MD 05/07/2025 Orders Only External Location [address] [place] [address] Du Mcmahan MD 05/07/2025 Orders Only External Location [address] [place] [address] Du Mcmahan MD 04/08/[address] [facility] [address], 1[address] [place] [address] Amada Rose APRN HCN - Patient Message 04/06/2025 10:40 AM EDT [facility] [address], 1st [place] [address] Amada Rose APRN Closed fracture of eleventh thoracic vertebra with routine healing, unspecified fracture morphology, subsequent encounter (Primary Dx); Fall from standing, initial encounter 04/06/2025 10:03 AM EDT - 04/06/2025 11:59 PM EDT Hospital Encounter [facility] [address], 1[address] [place] [address] Closed fracture of eleventh thoracic vertebra with routine healing, unspecified fracture morphology, subsequent encounter Discharge Disposition: Home or Self Care 04/06/2025 Travel 03/03/2025 Travel 03/02/2025 4:46 PM EDT - 03/10/2025 2:58 PM EDT Hospital Encounter [facility] 9 T2 [facility]I [address] [place] [address] Heron Salinas MD Detelich, Danielle M, MD Doud, MD Bhupendra Torres Brittany N, MD Bernard, Andrew C, MD Nickols, Bj Barber MD Closed fracture of eleventh thoracic vertebra, unspecified fracture morphology, initial encounter ([facility]) (Primary Dx) Discharge Disposition: Senior Living Facility 03/02/2025 Travel 03/02/2025 Orders Only External Location [address] [place] [phone] Provider, External 03/02/2025 Orders Only External Location [address] [place] [phone] Provider, External from Last 3 Months Social [...] and Family Not on file 03/05/2025 Attends Baptism Services Not on file 03/05 Active Member [...] 05/07/2025 10:20 AM EDT Plan of Treatment Health Maintenance Due Date Last Done Comments [facility]-Bone Density Scan 1940 [facility]-Depression Screening 1940 [facility]-Medicare Annual Wellness (AWV) 1940 [facility]-Infant/Child/Adol SDOH Screenings 1940 [facility]-DTaP,Tdap,and Td Vaccine s (1 - Tdap) 1958 [facility]-Zoster Vaccines (1 of 2) 1959 [id number] Vaccine ( - 2023- season) 2024 08/23/2021, 11/16/2020, 10/19/2020 [facility]-Influenza Vaccine [...] EDT EXTRA TUBE LAVENDER TOP Routine 05/08/20 11:26 AM EDT EXTRA TUBE LIGHT BLUE [...] ECG Atrial Rate 90 BPM MUSE ECG MT Interval 136 ms MUSE ECG QRSD Interval 70 ms MUSE ECG QT Interval 322 ms MUSE ECG QTC Interval 393 ms MUSE ECG P [place] 69 degrees MUSE ECG R [place] -42 degrees MUSE ECG T Wave [place] -47 degrees MUSE ECG Diagnosis Sinus rhythm [...] MUSE ECG Diagnosis Confirmed by Stevie Davison ([id number]) on 05/09/2025 9:43:28 AM MUSE ECG 05/08/2025 11:4 5 AM EDT 05/09/2025 9:43 AM EDT us Colten Rod MD ECG ORDERABLES Final Resu lt MUSE ECG * Gold Top (05/08/2025 11:26 AM EDT) Extra Hold for add-ons 05/08/2025 2:01 PM EDT [facility] Comment:Auto resulted. Blood Venous blood specimen / Unknown 05/08/2025 11:26 AM EDT 05/08/2025 11:45 AM EDT Colten Rod MD LAB BLOOD ORDERABLES Final Result [facility] [address] [place] [address] * Lavender Top (05/08/2025 11:26 AM EDT) Extra Hold for add-ons 05/08/2025 2:01 PM EDT [facility] Comment:Auto resulted. Blood Venous blood specimen / Unknown 05/08/2025 11:26 AM EDT 05/08/2025 11:45 AM EDT Colten Rod MD LAB BLOOD ORDERABLES Final Result Performing Organization Address [facility] Co de Phone Number [facility] [address] [place] [address] * Light Blue Top (05/08/2025 11:26 AM EDT) Extra Hold for add-ons 05/08/2025 2:01 PM EDT [facility] Comment:Auto resulted. Blood Venous blood specimen / Unknown 05/08/2025 11:26 AM EDT 05/08/2025 11:45 AM EDT Colten Rod MD LAB BLOOD ORDERABLES Final Result Performing Organization Address City/[facility]/ZIP Co de Phone Number [facility] [address] [place] [address] * (ABNORMAL) Basic Metabolic Panel, Plasma (05/08/2025 11:26 AM EDT) Glucose, Plasma 105(H) 74 - 99 mg/dL 05/08/2025 12:01 PM EDT [facility] BUN, Plasma 12 8 - 23 mg/dL 05/08/2025 12:01 PM EDT [facility] Creatinine, Plasma 0.82 0.60 - 1.10 mg/dL 05/08/2025 12:01 PM EDT [facility] BUN/Creatinine Ratio 15 05/08/2025 12:01 PM EDT [facility] Sodium, Plasma 137 136 - 145 mmol/L 05/08/2025 12:01 PM EDT [facility] Potassium, Plasma 3.7 3.6 - 4.9 mmol/L 05/08/2025 12:01 PM EDT [facility] Chloride, Plasma 103 97 - 107 mmol/L 05/08/2025 12:01 PM EDT [facility] CO2, Plasma 22 22 - 29 mmol/L 05/08/2025 12:01 PM EDT [facility] Anion Gap 12 6 - 16 mmol/L 05/08/2025 12:01 PM EDT [facility] Total Calcium, Plasma 9.0 8.9 - 10.2 mg/dL 05/08/2025 12:01 PM EDT [facility] eGFRcr 69.8 mL/min/1.7 3m*2 05/08/2025 12:01 PM EDT [facility] Comment:Reported eGFRcr in m L/min/1.73m2 is based the CKD-EPI 2020 equation that does not use a race coefficient. Blood Venous blood specimen / Unknown Venipuncture / Unknown 05/08/2025 11:26 AM EDT 05/08/2025 11:40 AM EDT us Colten Rod MD LAB BLOOD ORDERABLES Final Result [facility] [address] [place] [address] * MR Lumbar Spine wo IV Contrast [...] Lawson on 05/07/2025 at 2145 hours by [employer] message. Drafted by Bebe Burns MD on [...] spine CT performed 14 hours prior at [facility] Thoracic and lumbar spine MRI [...] is severe stenosis at right T1-2 and evjxpygx-qe-qwdvur stenosis at several mid thoracic levels. Prevertebral [...] spine CT performed 14 hours prior at [facility] Thoracic and lumbar spine MRI 03/03/2025 FINDINGS: Thoracic Spine: Diagnostic Quality: Adequate. Alignment: The bony alignment is normal. Marrow, Vertebrae and Intervertebral Discs: Linear T2 hyperintensity inthe anterior-inferior corner of the T11 vertebral body is consistent withfracture, confirmed on recent outside CT scan. Vertebral body heights arenormal. Multilevel disc desiccation and decreased disc heights. Avid X2fhslrxwyxunrzn within the T11-12 and T12-L1 disc spaces [...] narrowing issevere stenosis at right T1-2 and xhmjnxdn-qm-dnhqvo stenosis at severalmid thoracic levels. Prevertebral and [...] Ja Lawson on 05/07/2025 at 2145 hours [employer] message. Drafted by Bebe Burns MD on 05/07/2025 9:26 PM Final report signed by Bebe Burns MD on 05/07/2025 9:46 PM Anjel Medina MD IMG MRI PROCEDURES Final [...] Lawson on 05/07/2025 at 2145 hours by [employer] message. Drafted by Bebe Burns MD on [...] spine CT performed 14 hours prior at [facility] Thoracic and lumbar spine MRI [...] is severe stenosis at right T1-2 and ospqtelz-od-hhvydc stenosis at several mid thoracic levels. Prevertebral [...] spine CT performed 14 hours prior at [facility] Thoracic and lumbar spine MRI 03/03/2025 FINDINGS: Thoracic Spine: Diagnostic Quality: Adequate. Alignment: The bony alignment is normal. Marrow, Vertebrae and Intervertebral Discs: Linear T2 hyperintensity inthe anterior-inferior corner of the T11 vertebral body is consistent withfracture, confirmed on recent outside CT scan. Vertebral body heights arenormal. Multilevel disc desiccation and decreased disc heights. Avid S1fzjkmmcvlmclsi within the T11-12 and T12-L1 disc spaces [...] narrowing issevere stenosis at right T1-2 and ulklwvxt-tn-urxgvn stenosis at severalmid thoracic levels. Prevertebral and [...] No metallic density noted in the visualized glebn-dj-lman. ABDOMEN: Nonobstructive bowel gas pattern. L2-S1 posterior spinal fusion hardware. Otherwise, no metallic density noted in the visualized gqhaq-ik-ucvi. CRITICAL RESULT: No. COMMUNICATION: Per this written [...] effusion. No metallic density noted in the unjizpreowxglem-gf-vddk. ABDOMEN: Nonobstructive bowel gas pattern. L2-S1 posterior spinal fusion hardware. Otherwise, no metallic densitynoted in the visualized rcewk-mx-nahn. CRITICAL RESULT: No. COMMUNICATION: Per this written [...] No metallic density noted in the visualized yvslo-ez-ujxt. ABDOMEN: Nonobstructive bowel gas pattern. L2-S1 posterior spinal fusion hardware. Otherwise, no metallic density noted in the visualized vhrnh-te-vecx. CRITICAL RESULT: No. COMMUNICATION: Per this written [...] effusion. No metallic density noted in the ukeaksfcjjyepva-ta-tarj. ABDOMEN: Nonobstructive bowel gas pattern. L2-S1 posterior spinal fusion hardware. Otherwise, no metallic densitynoted in the visualized godmz-ii-yhtj. CRITICAL RESULT: No. COMMUNICATION: Per this written [...] MD on 04/06/2025 11:13 AM Amada Rose SIGNAL APPRENTICE IMG XR PROCEDURES Final Resu lt * [...] on 04/06/2025 11:13 AM Amada John Paul Rose SIGNAL APPRENTICE IMG XR PROCEDURES Final Resu lt * Urinalysis with reflex microscopic (Culture NOT Included) (03/03/2025 7:59 AM EDT) Color, Urine Yellow LAB URINALYSIS - AUTOMATED METHOD 03/03/2025 8:06 AM EDT [facility] Clarity, Urine Clear LAB URINALYSIS - AUTOMATED METHOD 03/03/2025 8:06 AM EDT [facility] Spec [place], Urine 1.016 1.005 - 1.030 LAB URINALYSIS - AUTOMATED METHOD 03/03/2025 8:06 AM EDT [facility] pH, Urine 6.5 5.0 - 8.0 LAB URINALYSIS - AUTOMATED METHOD 03/03/2025 8:06 AM EDT [facility] Protein, Urine Negative Negative mg/dL LAB URINALYSIS - AUTOMATED METHOD 03/03/2025 8:06 AM EDT [facility] Glucose, Urine Negative Negative mg/dL LAB URINALYSIS - AUTOMATED METHOD 03/03/2025 8:06 AM EDT [facility] Ketones, Urine Negative Negative mg/dL LAB URINALYSIS - AUTOMATED METHOD 03/03/2025 8:06 AM EDT [facility] Blood, Urine Negative Negative LAB URINALYSIS - AUTOMATED METHOD 03/03/2025 8:06 AM EDT [facility] Bilirubin, Urine Negative Negative LAB URINALYSIS - AUTOMATED METHOD 03/03/2025 8:06 AM EDT [facility] Urobilinogen, Urine 0.2 0.2 to 1.0 mg/dL LAB URINALYSIS - AUTOMATED METHOD 03/03/2025 8:06 AM EDT [facility] Leukocytes, Urine Negative Negative LAB URINALYSIS - AUTOMATED METHOD 03/03/2025 8:06 AM EDT [facility] Nitrite, Urine Negative Negative LAB URINALYSIS - AUTOMATED METHOD 03/03/2025 8:06 AM EDT [facility] Urine Urine specimen obtained by clean catch procedure / Unknown Non-blood Collection / Unknown 03/03/2025 7:59 AM EDT 03/03/2025 8:03 AM EDT us Heron Salinas MD LAB URINE ORDERABLES Final R esult [facility] [address] [place] [address] * MR Cervical Spine wo IV Contrast [...] the inferior endplate and extending into the [id number] disc. *No evidence of fracture or traumatic [...] Per this written report. Drafted by Bradley Clemnete MD on 03/02/2025 8:30 PM Final report [...] HIV 1/2 Differentiation (03/02/2025 6:44 PM EDT) HIV 1 & 2 Antibody/Antigen Screen Non Reactive Non Reactive 03/02/2025 7:48 PM EDT [facility] Comment:Screening for HIV 1 & 2 antibodies, and P24 antigen is NONREACTIVE. No confirmatory testing is required. Blood Venous blood specimen / Unknown Venipuncture / Unknown 03/02/2025 6:44 PM EDT 03/02/2025 7:02 PM EDT Heron Salinas MD LAB BLOOD ORDERABLES Final R esult [facility] [address] [place] [address] * Light Green Top (03/02/2025 6:44 PM EDT) Extra Hold for add-ons 03/02/2025 9:02 PM EDT [facility] Comment:Auto resulted. Blood Venous blood specimen / Unknown 03/02/2025 6:44 PM EDT 03/02/2025 6:53 PM EDT us Heron Salinas MD LAB BLOOD ORDERABLES Final R esult [facility] [address] [place] [address] * Hepatitis C Antibody - ED (03/02/2025 6:44 PM EDT) Hepatitis C Antibody Negative Negative 03/02/2025 7:48 PM EDT [facility] Blood Venous blood specimen / Unknown Venipuncture / Unknown 03/02/2025 6:44 PM EDT 03/02/2025 7:02 PM EDT us Heron Salinas MD LAB BLOOD ORDERABLES Final R esult Performing Organization Address [facility] [address] * PT-INR (03/02/2025 6:44 PM EDT) Pathologist [facility] Prothrombin Time 13.1 12.0 - 14.3 sec 03/02/2025 7:04 PM EDT [facility] INR 1.0 0.9 - 1.1 03/02/2025 7:04 PM EDT [facility] Blood Venous blood specimen / Unknown Venipuncture / Unknown 03/02/2025 6:44 PM EDT 03/02/2025 6:49 PM EDT Narrative [facility] - 03/02/2025 7:04 PM EDT OPTIMAL INR RANGES FOR PATIENT ON ORAL ANTICOAGULANT THERAPY Prevention of venous thromboembolism INR 2.0 to 3.0 In patients with heart disease: Atrial fibrillation INR 2.0 to 3.0 Valvular heart disease INR 2.0 to 3.0 Tissue heart valves INR 2.0 to 3.0 Mechanical prosthetic valves INR 2.5 to 3.5 Prevention of recurrent LA INR 2.5 to 3.5 us Heron Salinas MD LAB BLOOD ORDERABLES Final R esult [facility] [address] [place] [address] * (ABNORMAL) CBC w/diff (03/02/2025 6:44 PM EDT) WBC Count 7.31 3.70 - 10.30 10*3/uL LAB HEMATOLOGY METHOD 03/02/2025 6:52 PM EDT [facility] RBC Count 3.91 3.90 - 5.20 10*6/uL LAB HEMATOLOGY METHOD 03/02/2025 6:52 PM EDT [facility] HGB 12.0 11.2 - 15.7 g/dL LAB HEMATOLOGY METHOD 03/02/2025 6:52 PM EDT [facility] HCT 34.7 34.0 - 45.0 % LAB HEMATOLOGY METHOD 03/02/2025 6:52 PM EDT [facility] Platelet Count 161 155 - 369 10*3/uL LAB HEMATOLOGY METHOD 03/02/2025 6:52 PM EDT [facility] MCV 89 79 - 98 fL LAB HEMATOLOGY METHOD 03/02/2025 6:52 PM EDT [facility] MCH 30.7 26.0 - 32.0 pg LAB HEMATOLOGY METHOD 03/02/2025 6:52 PM EDT [facility] MCHC 34.6 30.7 - 35.5 g/dL LAB HEMATOLOGY METHOD 03/02/2025 6:52 PM EDT [facility] RDW 14.3 11.5 - 14.5 % LAB HEMATOLOGY METHOD 03/02/2025 6:52 PM EDT [facility] MPV 9.3 8.8 - 12.5 fL LAB HEMATOLOGY METHOD 03/02/2025 6:52 PM EDT [facility] nRBC 0.0 <=0.0 per 100 WBCs LAB HEMATOLOGY METHOD 03/02/2025 6:52 PM EDT [facility] Differential Type Automated LAB HEMATOLOGY METHOD 03/02/2025 6:52 PM EDT [facility] Neutrophils % 78 % LAB HEMATOLOGY METHOD 03/02/2025 6:52 PM EDT [facility] Lymphocytes % 10 % LAB HEMATOLOGY METHOD 03/02/2025 6:52 PM EDT [facility] Monocytes % 8 % LAB HEMATOLOGY METHOD 03/02/2025 6:52 PM EDT [facility] Eosinophils % 2 % LAB HEMATOLOGY METHOD 03/02/2025 6:52 PM EDT [facility] Basophils % 1 % LAB HEMATOLOGY METHOD 03/02/2025 6:52 PM EDT [facility] Immature Granulocytes % 1 % LAB HEMATOLOGY METHOD 03/02/2025 6:52 PM EDT [facility] Neutrophils Absolute 5.69 1.60 - 6.10 10*3/uL LAB HEMATOLOGY METHOD 03/02/2025 6:52 PM EDT [facility] Lymphocytes Absolute 0.76(L) 1.20 - 3.90 10*3/uL LAB HEMATOLOGY METHOD 03/02/2025 6:52 PM EDT [facility] Monocytes Absolute 0.60 0.30 - 0.90 10*3/uL LAB HEMATOLOGY METHOD 03/02/2025 6:52 PM EDT [facility] Eosinophils Absolute 0.15 0.00 - 0.50 10*3/uL LAB HEMATOLOGY METHOD 03/02/2025 6:52 PM EDT [facility] Basophils Absolute 0.06 0.00 - 0.10 10*3/uL LAB HEMATOLOGY METHOD 03/02/2025 6:52 PM EDT [facility] Immature Granulocytes Absolute 0.05 0.00 - 0.06 10*3/uL LAB HEMATOLOGY METHOD 03/02/2025 6:52 PM EDT [facility] Blood Venous blood specimen / Unknown Venipuncture / Unknown 03/02/2025 6:44 PM EDT 03/02/2025 6:49 PM EDT Narrative [facility] - 03/02/2025 6:52 PM EDT Therapeutic decision making should be based on absolute values, rather than percentages. us Heron Salinas MD LAB BLOOD ORDERABLES Final R esult [facility] [address] [place] [address] * Type and screen (03/02/2025 6:44 PM [...] ORDERABL ES Final Result Performing Organization Address [facility]/ZIP Co de Phone Number BLOOD BANK [address] [place] [address], * Magnesium (03/02/2025 6:44 PM EDT) Magnesium, Plasma 1.9 1.9 - 2.4 mg/dL 03/02/2025 7:09 PM EDT [facility] Blood Venous blood specimen / Unknown Venipuncture / Unknown 03/02/2025 6:44 PM EDT 03/02/2025 6:49 PM EDT Heron Salinas MD LAB BLOOD ORDERABLES Final R esult Performing Organization Address City/[facility]/ZIP Co de Phone Number [facility] [address] [place] [address] * (ABNORMAL) CMP (03/02/2025 6:44 PM EDT) Glucose, Plasma 107(H) 74 - 99 mg/dL 03/02/2025 7:09 PM EDT [facility] BUN, Plasma 24(H) 8 - 23 mg/dL 03/02/2025 7:09 PM EDT [facility] Creatinine, Plasma 1.02 0.60 - 1.10 mg/dL 03/02/2025 7:09 PM EDT [facility] BUN/Creatinine Ratio 24 03/02/2025 7:09 PM EDT [facility] Sodium, Plasma 130(L) 136 - 145 mmol/L 03/02/2025 7:09 PM EDT [facility] Potassium, Plasma 4.8 3.6 - 4.9 mmol/L 03/02/2025 7:09 PM EDT [facility] Chloride, Plasma 96(L) 97 - 107 mmol/L 03/02/2025 7:09 PM EDT [facility] CO2, Plasma 24 22 - 29 mmol/L 03/02/2025 7:09 PM EDT [facility] Anion Gap 10 6 - 16 mmol/L 03/02/2025 7:09 PM EDT [facility] Total Calcium, Plasma 8.8(L) 8.9 - 10.2 mg/dL 03/02/2025 7:09 PM EDT [facility] Total Protein 5.7(L) 6.3 - 7.9 g/dL 03/02/2025 7:09 PM EDT [facility] Albumin, Plasma 3.6 3.5 - 5.2 g/dL 03/02/2025 7:09 PM EDT [facility] AST, Plasma 19 10 - 35 U/L 03/02/2025 7:09 PM EDT [facility] Comment:Hemolyzed, result ma y be falsely increased. ALT, Plasma 25 10 - 35 U/L 03/02/2025 7:09 PM EDT [facility] Alkaline Phosphatase, Plasma 92 46 - 142 U/L 03/02/2025 7:09 PM EDT [facility] Total Bilirubin, Plasma 0.4 0.2 - 1.1 mg/dL 03/02/2025 7:09 PM EDT [facility] eGFRcr 54.0 mL/min/1.7 3m*2 03/02/2025 7:09 PM EDT [facility] Comment:Reported eGFRcr in m L/min/1.73m2 is based the CKD-EPI 2020 equation that does not use a race coefficient. Blood Venous blood specimen / Unknown Venipuncture / Unknown 03/02/2025 6:44 PM EDT 03/02/2025 6:49 PM EDT us Heron Salinas MD LAB BLOOD ORDERABLES Final R esult [facility] [address] [place] [address] from Last 3 Months Insurance [employer] MEDIC[place] Advance Directives * Full Code [...] updated to appropriate status: Yes Care Teams Water Pollution Scientist Relationship Specialty Start Date End Date Dg Kang MD [address] [facility] [address] [place] [address] PCP - General 02/03/21 Amada Rose APRN [address] [place] [phone] Nurse Practitioner Neurosurgery 04/06/25
--- OUTSIDE RECORDS SUMMARY | 2025-05-11 04:53 | XMS_ITS | Encounter Summary ---
Author Organization Healthcare Address [address] [place] [address] Care Team Providers Care Weekend Caregiver Name Role Phone Dg Kang MD Primary Care Provider [phone] Amada Rose FUNERAL PROFESSIONAL Unavailable [phone] Reason for Visit * Reason Onset Date Comments HCN - Patient Message 05/10/2025 Return daniela l Encounter Details Date Type Department Care Team (Late st Contact Info) Description 05/10/2025 Telephone [facility] [address] [place] [address] Amada Rose, FUNERAL PROFESSIONAL [address] [place] [address] HCN - Patient Message (Return call) 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 Tobacco Use Types Packs/Day Years [...] and Family Not on file 03/05/2025 Attends Anabaptism Services Not on file 03/05 Active Member [...] any time in the past 12 m [facility], were you homeless or living [...] encounter Miscellaneous Notes * Telephone Encounter - Jesse Haynes - 05/10/2025 4:49 PM EDT 05/10/2025 - Left Voicemail message - Appointment canceled per patient request for 05/18/2025. - Left voicemail message for patient (or family) to call back and reschedule when needed. No further action required at this time. * Telephone Encounter - Diogo Ruggiero - 05/10/2025 3:46 PM EDT Patient Phone Message Reason for Call: Daughter states the patient is not able to make her appt 05/18 and would like it canceled. they'll call back at a later date to r/s Best contact number and optimal time of day to reach caller: Please call [phone] Note: Please do not reply to this message. Follow-up communication and further actions as a result of this message need to be communicated with the patient directly, if the patient is not active onMyChart. If the patient is active on MyChart, they will receive notification of the communication/outcome via [employer]. documented in this encounter Plan of Treatment Not on file documented as of this encounter Visit Diagnoses Not on filedocumented in this encounter Additional Health Concerns Assessment Noted Time A Body Mass Index follow-up plan has been documented for the patient 04/06/2025 12:14 PM EDT documented as of this encounter Care Teams Weekend Caregiver Relationship Specialty Start Date End Date Dg Kang MD [id number] [place] [address] PCP - General 02/03/21 Amada Rose APRN [address] [facility] [address] [place] [phone] Nurse Practitioner Neurosurgery 04/06/25 documented as of this encounter
--- NOTE | 2025-05-11 05:46 | PC.NURSE ---
called and gave report to omayra at [facility], pt will be discharged back to longterm. ems contacted
[2025-05-11 05:55] VITALS: BP 123/63; PULSE 63; RESP 16; TEMP 36.4; O2SAT 98
== END 2025-05-11 05:56 ==
PROVIDERS: Emergency Provider Emergency Medicine
DX: Z04.3 Encounter for examination and observation following other accident (principal); W19.XXXA Unspecified fall, initial encounter
CPT/HCPCS: 70450; 71045; 72125; 72170; 99282; 99285

== ENCOUNTER 2025-06-26 01:40 | Outpatient (CLI) | payer MEDICARE, MEDICAID, SELFPAY ==
--- OUTSIDE RECORDS SUMMARY | 2025-05-07 10:06 | XMS_ITS | Encounter Summary ---
Author Organization Healthcare Address [address] [place] [address] Care Team Providers Care Senior Clinical Research Associate Name Role Phone Dg Kang MD Primary Care Provider [phone] Amada Rose METAL SOLDERER Unavailable [phone] Reason for Visit * Reason Comments Fall * Auth/Cert (Routine) Specialty Diagnoses / Procedures Referred By Ton willingham Referred To Contact Diagnoses new fracture from falls [facility] [address] [place] [address] Phone: tel: [facility] A Emergency Department [address] [place] [address] Phone: tel: Referral ID Status Reason Start Date Expiration Date Visits Re quested Visits Authorized [id number] 1 1 Encounter Details Date Type Department Care Team (Latest Contact Info) Description 05/07/2025 10:06 AM EDT - 05/08/2025 8:50 PM EDT Hospital Encounter [facility] Emergency Department [address] [place] [address] Anjel Medina MD [address] [place] [address] Ki White MD [address] [place] [address] Colten Rod MD [address] [place] [address] Mynor Pedersen, DO [address] [place] [address] Fall, initial encounter (Primary Dx); Closed fracture of eleventh thoracic vertebra, unspecified fracture morphology, initial encounter ([facility]) Discharge Disposition: Home or Self Care Social [...] and Family Not on file 03/05/2025 Attends [employer] Not on file 03/05 Active Member [...] the past [address] [facility], were you homeless or living in a [facility] (including now)? No 03/05/2025 Utilities Answer Date [...] bed. Please plan to transition patient to residential at [facility] as planned prior to arrival to the [...] name and Address: Dg Kang MD [address] [facility] [facility] [address] / [place] [id number] Referring provider name and address: Antonino Silvia Antonella, DO [address] [place] [address] Chief Concern, Brief History of Present Illness, and Hospital Course 85 y.o. with pertinent medical history of dementia, known T11 fracture from 02/2025, who is presenting from OSH with concerns of worsening T11/T12 injury. Patient was noted to have a ground level fallat home. Upon transferred to [facility] with EMS, patient was grimacing in pain however denied pain verbally. Of note, patient was planning to transfer to [facility] in [place] prior to admission. patient was diagnosed with [...] comfortable with assisting patient with transferred to residential independently despite offering case management services. Patient [...] bed. Please plan to transition patient to residential at [facility] as planned prior to arrival to the emergency department for continued medical care. If the patient develops worsening pain, numbness or tingling, mental status changes, please return to the ED for repeat evaluation Outpatient Follow-Up Future Appointments Date Time Provider Department Center 05/18/2025 9:20 AM Amada Rose APRN [facility] Test Results Pending At Discharge [...] Behavior normal. Discharge Disposition/Condition Disposition: Nursing facility ([facility]) [facility] Condition: Stable (s/sx potential problems absent or [...] time in preparation for this discharge. * Progress Notes - Quan Cummings MD - 05/08/2025 9:28 AM EDT Neurosurgery Consult Follow-up Note History, exam, and imaging review with attending and discussed on rounds this morning. Kelley Hua is a 85 y.o. female with hx of previous L1-S1 posterior fusion presenting after a fall from bed with back and anterior inferior vertebral body fracture at the T11 level involving the T11-T12 disc space. Exam: GCS (EMV): 464 Awake, alert, oriented x2 Follows commands appropriately Speech clear PERRL, EOMI RUIZ symmetrically, no drift Strength 5/5 throughout Sensation intact - Case and images (CT and MRI) reviewed in detail - No acute neurosurgical intervention - Rest of care per primary team - Follow up as previously scheduled on 05/18/25 in [facility] - Continue wearing TLSO brace OOB as previously recommended - Thank you for allowing us to participate in the care of this patient. Please call with any questions or concerns. [phone] Quan Stokes MD Resident Physician, PGY-2 Department of Neurosurgery [facility] Cosigned by Javier Garner MD at 05/17/2025 11:16 PM EDT Associated attestation - Javier Garner MD - 05/17/2025 11:16 PM EDT 05/08/2025 I saw and evaluated the patient with the resident/fellow. I discussed the case with the resident/fellow and agree with the findings and plan as documented. Neuro stable. Follow-up in clinic. * Care Plan - Betty Ch RN - 05/08/2025 9:03 AM EDT Problem: Skin Injury Risk Increased Goal: Skin Health and Integrity Outcome: Ongoing, Progressing Intervention: Optimize Skin Protection Flowsheets (Taken 05/08/2025 0755) Activity Management: activity adjusted per tolerance previous [...] Identify and Manage Contributors Flowsheets (Taken 05/08/2025 0757) Medication Review/Management: medications reviewed Self-Care Promotion: BADL personal objects within reach BADL personal routines maintained Intervention: Promote Injury-Free Environment Flowsheets (Taken 05/08/2025 0757) Safety Promotion/Fall Prevention: clutter-free environment maintained activity supervised assistive device/personal items within reach fall prevention program maintained lighting adjusted nonskid shoes/slippers when out of bed room organization consistent safety round/check completed Problem: Adult Inpatient Plan of Care Goal: Optimal Comfort and Wellbeing Outcome: Ongoing, Progressing Intervention: Monitor Pain and Promote Comfort Flowsheets (Taken 05/08/2025 0800) Pain Management Interventions: pain management plan reviewed with patient/caregiver Intervention: Provide Person-Centered Care Flowsheets (Taken 05/08/2025 0800) Trust Relationship/Rapport: care explained questions answered questions [...] reassurance provided thoughts/feelings acknowledged questions answered * Fariba&P - Tiffanie Franklin APRN - 05/07/2025 6:18 PM EDT Images from the original note were not included. Subjective Chief complaint Back pain after fall History Of Present Illness Kelley Hua is a 85 y.o. female with a past medical history of a posttraumatic T11 fracture currently managed by Neurosurgery presenting with complaints of back pain after sustaining a fall. According to the patient as well as her son who was at bedside to provide supplemental HPI, the patient was sitting on the bedside at approximately 5:00 a.m. this morning when she slid off and fell directly onto the ground. Shortly after the fall the patient began experiencing lower thoracic discomfort which is what prompted him to seek medical attention. Outside hospital obtain imaging which was concerning for a possible new T12 fracture and was dispositioned to for ongoing management. ED consulted Neurosurgery whom requested MRI imaging and the patient was subsequently placed in the ED observation for the imaging to be obtained as well as for pain control. Patient is otherwise hemodynamically stable, has no somatic complaints with the exception of her back pain, patient has no red flag symptoms including but not limited to fecal or urinary incontinence, saddle anesthesia, lower extremity weakness. Medical/Surgical/Social/Family History I have reviewed and updated the patient history. Travel History Relevant International Travel History: Travel Screening Question Response Have you been in contact with someone who was sick? No / Unsure Do you have any of the following new or worsening symptoms? None of these Have you traveled internationally or domestically in the last month? No Travel History Travel since 04/06/25 No documented travel since 04/06/25 Relevant Domestic Travel History: None Immunizations Reviewed Allergies Sulfa drugs Medications Current Medications[1] Objective Review of Systems Constitutional: Negative for chills and fever. HENT: Negative for ear pain and sore throat. Eyes: Negative for pain and visual disturbance. Respiratory: Negative for cough and shortness of breath. Cardiovascular: Negative for chest pain and palpitations. Gastrointestinal: Negative for abdominal pain and vomiting. Genitourinary: Negative for dysuria and hematuria. Musculoskeletal: Positive for back pain. Negative for arthralgias, neck pain and neck stiffness. Skin: Negative for color change and rash. Neurological: Negative for seizures and syncope. All other systems reviewed and are negative. Physical Exam Vitals and nursing note reviewed. Constitutional: General: She is not in acute distress. Appearance: Normal appearance. She is well-developed and normal weight. HENT: Head: Normocephalic and atraumatic. Eyes: Conjunctiva/sclera: Conjunctivae normal. Cardiovascular: Rate and Rhythm: Normal rate and regular rhythm. Pulses: Normal pulses. Heart sounds: Normal heart sounds. No murmur heard. Pulmonary: Effort: Pulmonary effort is normal. No respiratory distress. Breath sounds: Normal breath sounds. Abdominal: Palpations: Abdomen is soft. Tenderness: There is no abdominal tenderness. Musculoskeletal: General: No swelling. Cervical back: Normal and neck supple. Thoracic back: Tenderness and bony tenderness present. Decreased range of motion. Lumbar back: Tenderness and bony tenderness present. Decreased range of motion. Skin: General: Skin is warm and dry. Capillary Refill: Capillary refill takes less than 2 seconds. Neurological: General: No focal deficit present. Mental Status: She is alert and oriented to person, place, and time. Mental status is at baseline. Psychiatric: Mood and Affect: Mood normal. Last Recorded Vitals Blood pressure (!) 148/81, pulse 90, temperature 36.4 ??C (97.5 ??F), temperature source Oral, resp. rate 20, height 1.6 m (5' 3 ), weight 76.9 kg (169 lb 8.5 oz), SpO2 95%. Results Review I have reviewed the latest lab and imaging results. Assessment & Plan #Back Pain #Fall - Differentials include but are not limited to spinous process fractures, transverse process fractures, acute on chronic thoracic fracture, ligamentous injury - MR of the lumbar and thoracic spine pending - PRN Tylenol prescribed as needed for pain however patient denies any need for current pain medication - Neurological exam was unremarkable limiting the concern for cord compressive including cauda equina syndrome versus central cord Medically Ready for Discharge:Anticipated Tomorrow [1] Current Facility-Administered Medications Medication Dose Route Frequency Provider Last Rate Last Admin acetaminophen (Tylenol) tablet 650 mg 650 mg Oral q6h PRN Toffey, Tiffanie E, METAL SOLDERER sodium chloride 0.9 % flush 10 mL 10 mL Intravenous q12h Toffey, Tiffanie E, METAL SOLDERER 10 mL at 05/07/25 1534 And sodium chloride 0.9 % flush 10 mL 10 mL Intravenous PRN Toffey, Tiffanie E, METAL SOLDERER Current Outpatient Medications Medication Sig Dispense Refill acetaminophen (Tylenol) 500 MG tablet Take 2 [...] mouth every 8 hours for 15 days. (Patient not taking: Reported on 04/06/2025) Multiple Vitamin (Multivitamin) tablet Take 1 tablet [...] tablet Take 1 tablet by mouth nightly. Cosigned by Colten Rod MD at 05/13/2025 1:58 PM EDT Associated attestation - Colten Rod MD - 05/13/2025 1:58 PM EDT I attest to being involved in more than half the total time in patient care. I personally spent a total of 25 minutes on this encounter. This time includes face to face with patient, counseling, and discussion and/or coordination of care. * Consults - Quan Cummings MD - 05/07/2025 11:58 AM EDTAssociated Order(s): IP CONSULT TO NEUROSURGERY Reason For Consult: T11 fx Requesting Service: ED Requested Date/Time: 05/07/2025 11:58 AM History Of Present Illness: Kelley uHa is a 85 y.o. female with hx of L1-S1 fusion >15 yprior, and fracture through vertebral body of T11 involving the T11-12 disc space after a GLF (03/03/25) for which she was recommended wearing a TLSO brace by our service presenting to ED with back pain after fall from bed earlier today. Patient's son states her mom was able to stand and walk with assistance but she was significantly painful. Denies history of bowel or bladder incontinence. Ofnote patient does not take blood thinning medications as per son. Patient has been wearing her TLSObrace OOB. Past Medical, Surgical, and 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 noncontributory except as mentioned in HPI Medications: Current Medications[1] Allergies: Sulfa drugs Physical Exam GCS (EMV): 464 (baseline) Awake, alert, oriented x2 Follows commands appropriately Speech clear PERRL, EOMI Sensation intact Upper Extremity Motor Strength Right Left C5: Deltoid 5/5 5/5 C6: Biceps 5/5 5/5 C7: Triceps 5/5 5/5 C8: Procurement Forester 5/5 5/5 T1: Intrinsics 5/5 5/5 Lower Extremity Motor Strength Right Left L2: Hip flexion (Iliopsoas) 5/5 5/5 L3: Knee extension (Quad) 5/5 5/5 L4: Ankle DF (TA) 5/5 5/5 L5: Great Toe DF (EHL) 5/5 5/5 S1: Ankle Pf, Foot Eversion (Peroneal longus/brevis) 5/5 5/5 S2: Great toe flexion (FHL), Knee flexion 5/5 5/5 Sensation Right Left L2: Proximal anterior thigh Normal Normal L3: Mid anterior thigh Normal Normal L4: Medial leg/foot, great toe (Saphenous n.) Normal Normal L5: Dorsum of mid foot Normal Normal S1: Lateral leg/foot, little toe, Back of leg (Sural n.) Normal Normal Reflexes Right Left C5: Biceps 2/4 2/4 C6: Brachialis 2/4 2/4 L4: Patellar 2/4 2/4 SLR Negative Negative Clonus Negative Negative Hoffmans Negative Negative Labs I personally reviewed the following pertinent labs Labs in last 18 hours CBC WBC ?? Hb ?? Plt ?? Hct ?? ANC ?? INR ??, PTT ??, Anti-Xa ?? BMP Na ?? Cl ?? BUN ?? Glu ?? K ?? Co2 ?? Cr ?? Ca ?? iCa ?? Mg ??, Phos ?? Lactate ?? LFT AST ?? AlkPhos ?? T Prot ?? ALK ?? Bili ?? Alb ?? D.Bili ?? Imaging I personally reviewed CT thoracic spine showing a anterior inferior vertebral body fracture at the T11 level involving the T11-T12 disc space. Assessment and Plan Kelley Hua is a 85 y.o. female with hx of previous L1-S1 posterior fusion presenting after a fall from bed with back and anterior inferior vertebral body fracture at the T11 level involving the T11-T12 disc space. Assessment/Plan Active Problems: There are no active Hospital Problems. - No acute neurosurgical intervention - MRI L (up to T10) spine to evaluate for ligamentous injury - Log roll until MRMIs are completed - Please obtain Preop labs - Hold AP/AC - NPO overnight out of abundance of caution - Neurosurgery will continue to follow Quan Stokes MD Resident Physician, PGY-2 Department of Neurosurgery [facility] [1] No current facility-administered medications for this encounter. Current Outpatient Medications Medication Sig Dispense Refill acetaminophen (Tylenol) 500 MG tablet Take 2 [...] mouth every 8 hours for 15 days. (Patient not taking: Reported on 04/06/2025) Multiple Vitamin (Multivitamin) tablet Take 1 tablet [...] tablet Take 1 tablet by mouth nightly. Cosigned by Javier Garner MD at 05/17/2025 11:15 PM EDT Associated attestation - Javier Garner MD - 05/17/2025 11:15 PM EDT Javier Garner STAFF ATTESTATION (05/07/2025) I saw and evaluated the patient with the resident. I discussed the case with the residents and agree with the findings and plan as documented in the edited documentation below. Kelley Hua presents with T11-T12 fracture. We will plan for initial management in brace and follow-up in clinic. Javier Garner MD, PhD * Progress Notes - Surjit Osorio RN - 05/07/2025 11:19 AM EDT Kelley Hua Chief Complaint Patient presents with Fall [...] Patient lives with grandchild who is her diamond sawer. 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 Reports more than 10 falls in the last three months. Patient has a hard shell brace that was not on at the time of fall but reports that she normally wears it when getting outof bed. Family at bedside stated they had secured a bed at [facility] and was pending admission today. [phone]. EASI-0 MNA-NC Geriatric Triage Risk Screening Tool [...] offer additional resources at request. Ml Osorio ED-air intercept controller * ED Provider Notes - Ruth Angel MD - 05/07/2025 10:06 AM EDT Images from the original note were not included. - HPI Chief Complaint Patient presents with Fall HPI Kelley Hua is a 85 y.o. with pertinent medical history of dementia, known T11 fracture from02/2025, who is presenting from OSH with concerns of worsening T11/T12 injury. Patient presents via EMS. Patient's son at bedside reports that she has had 9 falls within the last 2 weeks. She is supposed to be checked into a nursing facility at 11:00am today but was found on the floor after another fall, prompting them to bring her to OSH. He reports that the patient was diagnosed with a T11 fracture in 02/2025 and discharged with a TLSO brace. At OSH, CT t spine were performed, which revealed worsening T11 injury with extension into T12. They were transferred here for a higher level of care. Patient History Past Medical History[1] Surgical History[2] Family History[3] 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[4] Allergies: Allergies[5] Physical Exam ED Triage Vitals [05/07/25 1018] Temp Heart Rate Resp BP 36.5 ??C (97.7 ??F) 71 14 (!) 148/82 SpO2 Temp src Heart Rate Source Patient Position 95 % -- Monitor Lying BP Location FiO2 (%) Right arm -- Physical Exam Vitals and nursing note reviewed. Constitutional: General: She is not in acute distress. Appearance: She is well-developed. HENT: Head: Normocephalic and atraumatic. Right Ear: External ear normal. Left Ear: External ear normal. Eyes: Conjunctiva/sclera: Conjunctivae normal. Cardiovascular: Rate and Rhythm: Normal rate and regular rhythm. Heart sounds: No murmur heard. Pulmonary: Effort: Pulmonary effort is normal. No respiratory distress. Breath sounds: Normal breath sounds. Abdominal: Palpations: Abdomen is soft. Tenderness: There is no abdominal tenderness. Musculoskeletal: General: No swelling. Cervical back: Normal range of motion and neck supple. No rigidity or tenderness. Comments: Midline T spine tenderness Skin: General: Skin is warm and dry. Capillary Refill: Capillary refill takes less than 2 seconds. Neurological: Mental Status: She is alert. Psychiatric: Mood and Affect: Mood normal. EASI ?? Total Score: 0 Sue Coma Scale Score: 14 Mini Nutritional Screening Score : 12 TRST Assessment Total: 2 ED Course & MDM - Assessment: 85 y.o. female presents to ED with complaint of worsening T11/T12 fracture. It should be noted thatthe chronic conditions includes dementia, which currently is not at goal therapy. This complicates the clinical picture because it Comorbidities: may be exacerbating symptoms, increases the amount and complexity of data to be reviewed, and complicates the clinical workup Differential Diagnosis: worsening T11/T12 fracture, new vertebral fracture, intracranial injury In order to fully explore the differential diagnosis the following treatments and tests were ordered: ED Medication Administration from 05/07/2025 0820 to 05/07/2025 2310 Date/Time Order Dose Route Action 05/07/2025 7117 EDT sodium chloride 0.9 % flush 10 mL 10 mL Intravenous Given All Other Orders Ordered Status Ordering Provider 05/07/252200 NPO diet NPO except: Sips with meds, Ice chips Diet effective midnight Acknowledged JA LAWSON 05/07/252200 Mobility Orders Until discontinued Acknowledged JA LAWSON 05/07/252003 Adult diet Diet texture: Regular Diet effective now Acknowledged JA LAWSON 05/07/25 141 Vital Signs Every 4 hours Acknowledged TIFFANIE FRANKLIN 05/07/25 141 Sequential compression device Until discontinued Comments: SCDs must be in place and turned on EXCEPT when ACTIVELY ambulating. Acknowledged TIFFANIE FRANKLIN 05/07/25 141 Cardiac Monitoring Until discontinued Acknowledged TIFFANIE FRANKLIN 05/07/25 141 Notify Provider Until discontinued Comments: temp greater than 100.4, SBP greater than 160/less than 90, MAPs greater than 110, less than 65, HR greater than 110/less than 50, SpO2 less than 88, Glucose less than 80 or greater than 250, chest pain = obtain ECG and notify provider Acknowledged TIFFANIE FRANKLIN 05/07/25 1415 Insert peripheral IV Once Placed in And Linked Group Acknowledged TIFFANIE FRANLKIN 05/07/25 1415 Saline lock IV Once Placed in And Linked Group Acknowledged TIFFANIE FRANKLIN 05/07/25 1415 Full code Continuous Acknowledged TIFFANIE FRANKLIN 05/07/25 1415 Diet effective now Canceled TIFFANIE FRANKLIN 05/07/25 1319 XR Chest 1 View One time imaging Final result RUTH ANGEL 05/07/25 1319 XR Abdomen 1 View Once Final result RUTH ANGEL 05/07/25 1200 MR Thoracic Spine wo IV Contrast Once Final result RUTH ANGEL 05/07/25 1200 MR Lumbar Spine wo IV Contrast Once Final result URTH ANGEL 05/07/25 1155 Consult to Neurosurgery Once Specialty: Neurosurgery Provider: (Not yet assigned) Completed RUTH ANGEL ED Course as of 05/07/25 2310 SatMay 07, 2025 1130 On my initial evaluation of the patient, they were hemodynamically stable, not in any respiratory distress and alert and oriented. They had initial concerns of back pain and concerns of worsening known T11/T12 injury. Neurosurgery consulted for further workup and recommendations of worsening t spine injury. [SL] 1152 I personally reviewed patient's previous OSH records which revealed: Imaging: - CT head: unremarkable - CT c spine: unremarkable - CT t spine: Previous anterior inferior T11 oblique fracture is again seen with sclerotic marginsand subtle extension including the with left margin on T12. - CT bony pelvis: unremarkable [SL] 1200 Neurosurgery recommended MRI t spine and l spine. Patient has her spot at nursing facility after discharge, given that the patient does not have neurological deficits, she is appropriate for admission to ED obs. [SL] ED Course User Index [SL] Ruth Angel MD Clinical Impressions as of 05/07/252309 Fall, initial encounter Closed fracture of eleventh thoracic vertebra, unspecified fracture morphology, initial encounter (CMS/[facility]) Social Determinates of Health Risks (including Economic Stability, Education and level of understanding, Healthcare access and quality and concerning social factors): None identified on this visit Ultimately, this patient was Was admitted (Admission) The primary encounter diagnosis was Fall, initial encounter. A diagnosis of Closed fracture of eleventh thoracic vertebra, unspecified fracture morphology, initial encounter (CMS/[facility]) wasalso pertinent to this visit.. Patient believed to require admission for the listed diagnoses. The ED Observation service was consulted for admission and was agreeable to admit to ED Observation. ED Prescriptions None Disposition Observation Provider Care Team: ALONSO [facility] [56] Are they the primary team?: Yes [1] - [1] Past Medical History: Diagnosis Date Dementia (CMS/HCC) Hypertension [2] Past Surgical History: Procedure Laterality Date SPINE SURGERY prior L5-S1 hardware [3] No family history on file. [4] Tobacco Use Smoking status: Never Smokeless tobacco: Never Vaping Use Vaping status: Never Used Substance Use Topics Alcohol use: Never Drug use: Never [5] Allergies Allergen Reactions Sulfa Drugs Rash Ruth Angel MD Resident 05/07/252309 Cosigned by Anjel Medina MD at 05/12/2025 10:33 AM EDT Associated attestation - Anjel Medina MD - 05/12/2025 10:33 AM EDT I saw and evaluated the patient with the resident/fellow. I discussed the case with the resident/fellow and agree with the findings and plan as documented. * ED Triage Notes - Kina May [...] ECG Atrial Rate 90 BPM MUSE ECG VT Interval 136 ms MUSE ECG QRSD Interval 70 ms MUSE ECG QT Interval 322 ms MUSE ECG QTC Interval 393 ms MUSE ECG P [place] 69 degrees MUSE ECG R [place] -42 degrees MUSE ECG T Wave [place] -47 degrees MUSE ECG Diagnosis Sinus rhythm [...] MUSE ECG Diagnosis Confirmed by Stevie Davison ([id number]) on 05/09/2025 9:43:28 AM MUSE ECG 05/08/2025 11:4 5 AM EDT 05/09/2025 9:43 AM EDT Colten Rod MD ECG ORDERABLES Final Resu lt MUSE ECG * Gold Top (05/08/2025 11:26 AM EDT) Extra Hold for add-ons 05/08/2025 2:01 PM EDT [facility] Comment:Auto resulted. Blood Venous blood specimen / Unknown 05/08/2025 11:26 AM EDT 05/08/2025 11:45 AM EDT Colten Rod MD LAB BLOOD ORDERABLES Final Result [facility] [address] [place] [address] * Lavender Top (05/08/2025 11:26 AM EDT) Extra Hold for add-ons 05/08/2025 2:01 PM EDT [facility] Comment:Auto resulted. Blood Venous blood specimen / Unknown 05/08/2025 11:26 AM EDT 05/08/2025 11:45 AM EDT Colten Rod MD LAB BLOOD ORDERABLES Final Result Performing Organization Address [facility]/ZIP Co de Phone Number [facility] [address] [place] [address] * Light Blue Top (05/08/2025 11:26 AM EDT) Extra Hold for add-ons 05/08/2025 2:01 PM EDT [facility] Comment:Auto resulted. Blood Venous blood specimen / Unknown 05/08/2025 11:26 AM EDT 05/08/2025 11:45 AM EDT Colten Rod MD LAB BLOOD ORDERABLES Final Result Performing Organization Address City/[facility]/ZIP Co de Phone Number [facility] [address] [place] [address] * (ABNORMAL) Basic Metabolic Panel, Plasma (05/08/2025 11:26 AM EDT) Glucose, Plasma 105(H) 74 - 99 mg/dL 05/08/2025 12:01 PM EDT [facility] BUN, Plasma 12 8 - 23 mg/dL 05/08/2025 12:01 PM EDT [facility] Creatinine, Plasma 0.82 0.60 - 1.10 mg/dL 05/08/2025 12:01 PM EDT [facility] BUN/Creatinine Ratio 15 05/08/2025 12:01 PM EDT [facility] Sodium, Plasma 137 136 - 145 mmol/L 05/08/2025 12:01 PM EDT [facility] Potassium, Plasma 3.7 3.6 - 4.9 mmol/L 05/08/2025 12:01 PM EDT [facility] Chloride, Plasma 103 97 - 107 mmol/L 05/08/2025 12:01 PM EDT [facility] CO2, Plasma 22 22 - 29 mmol/L 05/08/2025 12:01 PM EDT [facility] Anion Gap 12 6 - 16 mmol/L 05/08/2025 12:01 PM EDT [facility] Total Calcium, Plasma 9.0 8.9 - 10.2 mg/dL 05/08/2025 12:01 PM EDT [facility] eGFRcr 69.8 mL/min/1.7 3m*2 05/08/2025 12:01 PM EDT [facility] Comment:Reported eGFRcr in m L/min/1.73m2 is based the CKD-EPI 2020 equation that does not use a race coefficient. Blood Venous blood specimen / Unknown Venipuncture / Unknown 05/08/2025 11:26 AM EDT 05/08/2025 11:40 AM EDT us Colten Rod MD LAB BLOOD ORDERABLES Final Result Performing Organization Address City/State/[facility] Co de Phone Number [facility] [address] [place] [address] * MR Lumbar Spine wo IV Contrast [...] Lawson on 05/07/2025 at 2145 hours by [employer]. Drafted by Bebe Burns MD on 05/07/2025 [...] spine CT performed 14 hours prior at [facility] Thoracic and lumbar spine MRI 03/03/2025 FINDINGS: [...] is severe stenosis at right T1-2 and hfavoybz-ck-vkrmra stenosis at several mid thoracic levels. Prevertebral [...] spine CT performed 14 hours prior at [facility] Thoracic and lumbar spine MRI 03/03/2025 FINDINGS: Thoracic Spine: Diagnostic Quality: Adequate. Alignment: The bony alignment is normal. Marrow, Vertebrae and Intervertebral Discs: Linear T2 hyperintensity inthe anterior-inferior corner of the T11 vertebral body is consistent withfracture, confirmed on recent outside CT scan. Vertebral body heights arenormal. Multilevel disc desiccation and decreased disc heights. Avid E2dlgwrinhkwblpu within the T11-12 and T12-L1 disc spaces [...] narrowing issevere stenosis at right T1-2 and ynuexcwd-ho-jcyevk stenosis at severalmid thoracic levels. Prevertebral and [...] Lawson on 05/07/2025 at 2145 hours by [employer]. Drafted by Bebe Burns MD on 05/07/2025 [...] spine CT performed 14 hours prior at [facility] Thoracic and lumbar spine MRI 03/03/2025 FINDINGS: [...] is severe stenosis at right T1-2 and pejbvomq-mp-nulwgr stenosis at several mid thoracic levels. Prevertebral [...] spine CT performed 14 hours prior at [facility] Thoracic and lumbar spine MRI 03/03/2025 FINDINGS: Thoracic Spine: Diagnostic Quality: Adequate. Alignment: The bony alignment is normal. Marrow, Vertebrae and Intervertebral Discs: Linear T2 hyperintensity inthe anterior-inferior corner of the T11 vertebral body is consistent withfracture, confirmed on recent outside CT scan. Vertebral body heights arenormal. Multilevel disc desiccation and decreased disc heights. Avid J1qcbjywdfytaagp within the T11-12 and T12-L1 disc spaces [...] narrowing issevere stenosis at right T1-2 and tyhnibxi-be-axdjvy stenosis at severalmid thoracic levels. Prevertebral and [...] Ja Lawson on 05/07/2025 at 2145 hours by[employer] message. Drafted by Bebe Burns MD on [...] No metallic density noted in the visualized wcemx-xf-dhkg. ABDOMEN: Nonobstructive bowel gas pattern. L2-S1 posterior spinal fusion hardware. Otherwise, no metallic density noted in the visualized bnhkp-fo-tkte. CRITICAL RESULT: No. COMMUNICATION: Per this written [...] effusion. No metallic density noted in the wezvcifuubzjiqa-ql-ukjb. ABDOMEN: Nonobstructive bowel gas pattern. L2-S1 posterior spinal fusion hardware. Otherwise, no metallic densitynoted in the visualized lyekr-hi-uvgj. CRITICAL RESULT: No. COMMUNICATION: Per this written [...] No metallic density noted in the visualized eupxt-qm-vdgv. ABDOMEN: Nonobstructive bowel gas pattern. L2-S1 posterior spinal fusion hardware. Otherwise, no metallic density noted in the visualized kkxjb-lc-rssl. CRITICAL RESULT: No. COMMUNICATION: Per this written [...] effusion. No metallic density noted in the jbpeltcthnztasb-md-vtbt. ABDOMEN: Nonobstructive bowel gas pattern. L2-S1 posterior spinal fusion hardware. Otherwise, no metallic densitynoted in the visualized aygoh-em-brsf. CRITICAL RESULT: No. COMMUNICATION: Per this written [...] Bryn Wayne MD on 05/07/2025 2:31 PM Anjel Medina MD IMG XR PROCEDURES Final Result documented in this encounter Visit Diagnoses Diagnosis Fall, initial encounter- Primary Closed fracture of eleventh thoracic vertebra, unspecified fracture morphology, initial encounter ([facility]) documented in this encounter Administered Medications Inactive [...] documented as of this encounter Care Teams Senior Clinical Research Associate Relationship Specialty Start Date End Date Dg aKng MD [facility] [address] [place] [address] PCP - General 02/03/21 Amada Rose APRN [address] [facility] [address] [place] [id number] Nurse Practitioner Neurosurgery 04/06/25 documented as of this encounter
--- OUTSIDE RECORDS SUMMARY | 2025-06-26 01:43 | XMS_ITS | Patient Health Record ---
Author Organization [facility] [place] Address [address] [facility] [address] Care Team Providers Care Mold Mechanic Name Role Phone MARLEE MEDINA Primary Care Provider [phone] [id number] Jorge Luis Cote, Dg Unavailable Unavailable Reason For Referral No Information Plan Of Treatment No Information Insurance Providers Payer Name Payer Address Payer Phone Subscriber Number Group Number Insured Name Patient Relationship to Insured Coverage Start Date Coverage End Date [employer] [address] [address] [place] [address] [id number] Kelley Hamm Self - patient is the insured
--- OUTSIDE RECORDS SUMMARY | 2025-06-26 01:43 | XMS_ITS | Encounter Summary ---
Author Organization Healthcare Address [address] [place] [address] Care Team Providers Care Vinyl Hanger Name Role Phone Dg Kang MD Primary Care Provider [phone] Amada Rose HEEL NAILING MACHINE OPERATOR Unavailable [phone] Encounter Details Date Type Department Care Team [...] in the past 12 m [facility], were you homeless or living in a detention (including now)? No 03/05/2025 Utilities Answer Date [...] documented as of this encounter Care Teams Vinyl Hanger Relationship Specialty Start Date End Date Dg Kang MD [facility] [place] [address] PCP - General 02/03/21 Amada Rose APRN [address] [address] Nurse Practitioner Neurosurgery 04/06/25 documented as of this encounter
--- OUTSIDE RECORDS SUMMARY | 2025-06-26 01:43 | XMS_ITS | Data Portability ---
Author Organization [place] - [facility] - [place] [facility] ADMIN Address [address] [place] [id number] Assessment No assessment recorded. Plan of Treatment [...] 13.7 K/uL 4.0-10 .5 high Not Available [facility] [address] [place], [address], 02/02/2025 12:05:25 02/03/20 25 02/02/2025 CBC NO DIFF (HEMO GRAM) RBC 4.2 M/mm3 4.2-6. 4 Not Available [facility] [address] [place], [address], 02/02/2025 12:05:25 02/03/20 25 02/02/2025 CBC NO DIFF (HEMO GRAM) HGB 12.5 gm/dL 12.5-1 6.0 Not Available [facility] [address] [place], [address], 02/02/2025 12:05:25 02/03/20 25 02/02/2025 CBC NO DIFF (HEMO GRAM) HCT 38.3 % 37.0-4 7.0 Not Available [facility] [address], [place], [address], 02/02/2025 12:05:25 02/03/20 25 02/02/2025 CBC NO DIFF (HEMO GRAM) MCV 92.1 fL 78-100 Not Available [facility] [address], [place], [address], 02/02/2025 12:05:25 02/03/20 25 02/02/2025 CBC NO DIFF (HEMO GRAM) MCH 30.0 pg 27-31 Not Available [facility] [address], [place], [address], 02/02/2025 12:05:25 02/03/20 25 02/02/2025 CBC NO DIFF (HEMO GRAM) MCHC 32.6 g/dL 32-36 Not Available [facility] [address], [place], [address], 02/02/2025 12:05:25 02/03/20 25 02/02/2025 CBC NO DIFF (HEMO GRAM) RDW 13.9 % 11.5-1 4.0 Not Available [facility] [address], [place], [address], 02/02/2025 12:05:25 02/03/20 25 02/02/2025 CBC NO DIFF (HEMO GRAM) platelet count 237 K/uL 150-45 0 Not Available [facility] [address] [place], [address], 02/02/2025 12:05:25 02/03/20 25 02/02/2025 CBC NO DIFF (HEMO GRAM) MPV 10.6 fL 6-9.5 high Not Available [facility] [address], [place], [address], 02/02/2025 12:05:25 02/03/20 25 02/02/2025 CBC NO DIFF (HEMO GRAM) manual differential NO Not Available [facility] [address] [place], [address], 02/02/2025 12:05:25 02/03/20 25 02/02/2025 BASIC METAB OLIC PANEL sodium 138 mmol/ L 136-14 5 Not Available [facility] [address], [place], [address], 02/02/2025 12:32:23 02/03/20 25 02/02/2025 BASIC METAB OLIC PANEL potassium 3.9 mmol/ L 3.6-5. 0 Not Available [facility] [address], [place], [address], 02/02/2025 12:32:23 02/03/20 25 02/02/2025 BASIC METAB OLIC PANEL chloride 103 mmol/ L 98-107 Not Available [facility] [address], [place], [address], 02/02/2025 12:32:23 02/03/20 25 02/02/2025 BASIC METAB OLIC PANEL carbon dioxide 29.4 mmol/ L 21.0-3 2.0 Not Available [facility] [address] , [place], [address], 02/02/2025 12:32:23 02/03/20 25 02/02/2025 BASIC METAB OLIC PANEL anion gap 9.5 Not Available [facility] [address] [place], [address], 02/02/2025 12:32:23 02/03/20 25 02/02/2025 BASIC METAB OLIC PANEL glucose 114 mg/dL 70-120 Not Available [facility] [address], [place], [address], 02/02/2025 12:32:23 02/03/20 25 02/02/2025 BASIC METAB OLIC PANEL BUN 17 mg/dL 7-18 Not Available [facility] [address] [facility], [place], [address], 02/02/2025 12:32:23 02/03/20 25 02/02/2025 BASIC METAB OLIC PANEL creatinine 1.1 mg/dL 0.6-1. 3 Not Available [facility] [address] [facility], [place], [address], 02/02/2025 12:32:23 02/03/20 25 02/02/2025 BASIC METAB [...] velazco ing kiney funct ion. Not Available [facility] [address] [facility], [place], [address], 02/02/2025 12:32:23 02/03/20 25 02/02/2025 BASIC METAB OLIC PANEL osmolality (calculated) 290 mOsm/ kg 275-30 1 OSMOL ALITY IS A CALCU LATIO N UTILI ZING THE SERUM /PLAS MA SODIU M, GLUCO SE AND UREA NITRO GEN (BUN) LEVEL S. FOR THE MOST ACCUR ATE RESUL T A MEASU RED SERUM OSMOL ALITY IS SUGGE STED. Not Available [facility] [address] [facility], [place], [address], 02/02/2025 12:32:23 02/03/20 25 02/02/2025 BASIC METAB OLIC PANEL calcium 9.6 mg/dL 8.5-10 .5 Not Available [facility] [address] [facility], [place], [address], 02/02/2025 12:32:23 03/17/20 24 03/17/2024 audio gram No observ ation record ed. [email or web address] Not Available 2023 14:19:46 Result Notes None recorded. Problems Name Problem SNOMED Code Status Onset Date Resolution Date Notes Provider Name and Address Organization Details Recorded Time Sensorineural hearing loss 41803218 Active 2023 MIRNA MURILLO [address], [place], [address] , [facility] & [place] 4 11:09:07 Problem Notes None recorded. Procedures Surgical History Date Name Laterality Status Provider Name and Address Organization Details Recorded Time Back Surgery completed Corrie Brownlee [place] - [facility] & [place] 02/02/2025 10:01:45 Total Hysterectomy completed Corriemarj Brownlee [place] - [facility] & [place] 02/02/2025 10:01:54 Colonoscopy completed Corriemarj Brownlee [place] - [place] [facility] & [place] 02/02/2025 10:02:18 Imaging Results None recorded. Procedure Notes None recorded. Medical Equipment None Reported. Allergies Allergen ID Allergen Name Allergen Category Reaction Reaction Severity Criticality Documentation Date Start Date Code Code System Note Provider Name and Address Organization Details Recorded Time 956030 Substance with sulfonami de structure and antibacte rial mechanism of action (substanc e) medicatio n Not available Not available Not available 02/02/2025 12733 8003 SNOMED Ocrrie Kem barros, [place] - [facility] & [place] 5 09:57:38 Medications Name Sig Start Date Stop Date Status Note LastModified by Organization Details LastModified Time celecoxib 200 mg capsule TAKE ONE CAPSULE BY MOUTH EVERY DAY active Not Available Not Available No t Available prednisone 20 mg tablet TAKE ONE TABLET BY MOUTH THREE TIMES DAILY --TAKE WITH FOOD-- active Not Available Not Available No t Available propranolol 60 mg tablet TAKE ONE TABLET BY MOUTH TWICE DAILY active Not Available Not Available No t Available acetaminoph en 500 mg tablet TAKE ONE TABLET BY MOUTH EVERY 6 HOURS NEEDED FOR PAIN active Not Available Not Available No t Available primidone 250 mg tablet TAKE ONE TABLET BY MOUTH EVERY NIGHT AT BEDTIME active Not Available Not Available [...] CAPSULES BY MOUTH EVERY DAY AT BEDTIME active [...] Not Available Not Available No t Available lactulose 10 gram/15 mL oral solution TAKE 30ML BY MOUTH TWICE DAILY NEEDED FOR CONSTIPAT ION active Not Available Not Available No t [...] Body weight Body temperature Heart rate Systolic And Diastolic Provider Name and Address Organization Details Last Updated DateTime 5 152.4 cm 29.9 kg/m2 71669.6 3 g 97 [degF] 61 /min 142/84 mm[Hg] Corrie Brownlee [facility] - [place] [facility] [place] 5 09:57:24 Date Recorded Body height Body mass index (BMI) Body weight Body temperature Oxygen saturation Oxygen saturation in Arterial blood by Pulse oximetry Heart rate Systolic And Diastolic Provider Name and Address Organization Details Last Updated DateTime 152.4 cm 29.9 kg/m2 22714.6 3 g 98.1 [degF] 96 % 96 % 58 /min 124/66 mm[Hg] Ibeth Bonilla [facility] & [place] 13:39:52 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 None recorded. Functional Status Question Answer Note LastModified by Organization D etails LastModified Time What is your level of alcohol consumption? None Information not available 02/02/2025 Mental Status None recorded. Family History Relationship Description Onset Age of this Age Resolved Age Notes LastModified by Organization Details LastModified Time Father Heart disease [email or web address] Not available 2024 10:00:25 Sister Heart disease [email or web address] Not available 2024 10:00:25 Sister Malignant neoplasm of skin of face [email or web address] Not available 10:01:10 Medical History Condition Response Arthritis Y Reflux/GERD Y Asthma Y Gynecological HistoryNo gynecological history recorded. Obstetrics History GPAL:G 0 P 0 0 0 0 Immunizations Vaccine Type Date Status Note Provider Nam e and Address Organization Details Recorded Time influenza, unspecified formulation 07/07/2024 [facility] [place] 02/02/2025 09:59:26 Past Encounters Encounter ID Performer Location Encounter Start Date Encounter Closed Date Diagnosis/Indication Diagnosis SNOMED-CT Code Diagnosis ICD10 Code Diagnosis IMO Codes Diagnosis Note [id number] MIRNA MURILLO [facility] [place] [address] [place] [address] 03/17/2024 09:34:57 03/17/2024 09:57:42 Sensorineural hearing loss 00348738 H90.3 [id number] MIRNA [facility]URILLO [facility] [address] [address] 05/13/2024 11:41:32 05/13/2024 12:05:45 Sensorineural hearing loss 60270322 H90.3 [id number] Adriane Alarcon MD [facility] Gen Surg [facility] [address] [facility] [address] [place] [address] 02/02/2025 09:49:41 02/02/2025 10:41:53 Eye / vision finding 127836787 H53.9 4100046 I have scheduled the patient for urgent [...] Erythrocyt e sedimentation rate above reference range 305719660 R70.0 942166 [id number] Adriane Alarcon MD [facility] Gen [facility] [address] [facility] [address] [place] [address] 02/22/2025 13:32:26 02/22/2025 14:31:21 Eye / vision finding 636293553 H53.9 2056311 Stable postop, no restrictio ns Erythrocyt e sedimentation rate above reference range 589336502 R70.0 821379 Health Concerns Section Related Observation LastModified by Organization Detai ls LastModified Time None Recorded Concern Status LastModified by Organization Details LastModified Time None Recorded Advance Directives Directive None Recorded Payers Insurance Date Sequence Insurance Name Policy Number Policy Patel Covered Member ID Patel Member ID Guarantor Name 05/09/2025 2 MEDICA[facility] CHOICES - FFS/TRADITIO NAL Kelley Hua [id number] 05/09/2025 1 [employer] (MEDICARE REPLACEMENT/ ADVANTAGE - PPO) Kelley Hua [id number] Notes Date Note Type Note Provider Name [...] she will consider. 3-F/u hearing testing annually. MIRNA MURILLO [address], [place], [address], [facility] & [place] 03/17/2024 11:11:36 05/13/2024 text/html Ms. Hua was seen today for a hearing aid fitting in the [place]. She was fit with [employer] [address] hearing aid. F/u prn. RANDALL BOYER, MIRNA [address], [place], [address], [facility] & [place] 05/13/2024 12:10:18 02/02/2025 text/html 84 year old woman referred for temporal artery biopsy. She has had visual changes in her right eye and elevated ESR. She was started on prednisone on 01/29. Adriane Alarcon MD [address], [place], [address], [facility] & [place] 02/02/2025 11:14:06 02/22/2025 text/html S/P right temporal artery biopsy. Pathology did not show any evidence of vasculitis. No complaints, has follow up with ophthalmology later today. Adriane Alarcon MD [address], [place], [address], [facility] [place] 02/22/2025 14:23:30 OBGyn Episode No OBEpisode recorded.
--- OUTSIDE RECORDS SUMMARY | 2025-06-26 01:44 | XMS_ITS | Encounter Summary ---
Author Organization Healthcare Address [address] [place] [address] Care Team Providers Care Aerial Sprayer Name Role Phone Dg Kang MD Primary Care Provider [phone] Amada Rose CONTRACT PROCESSOR Unavailable [phone] Reason for Visit * Reason Onset Date Comments HCN - Patient Message 04/08/2025 Encounter Details Date Type Department Care Team (Late st Contact Info) Description 04/08/2025 Telephone [place] [facility] [address] [place] [address] Amada Rose, CONTRACT PROCESSOR [address] [place] [address] HCN - Patient Message Social [...] in the past 12 m [facility], were you homeless or living in a halfway (including now)? No 03/05/2025 Utilities Answer Date Recorded In the past 12 months has th e [employer], [employer], oil, or water [employer] threatened to shut off services in your [...] time of day to reach caller: Leah [phone] Note: Please do not reply to this message. Follow-up communication and further actions as a result of this message need to be communicated with the patient directly, if the patient is not active onMyChart. If the patient is active on MyChart, they will receive notification of the communication/outcome via InOpen. documented in this encounter Plan of Treatment Not on file documented as of this encounter Visit Diagnoses Not on filedocumented in this encounter Additional Health Concerns Assessment Noted Time A Body Mass Index follow-up plan has been documented for the patient 04/06/2025 12:14 PM EDT documented as of this encounter Care Teams Aerial Sprayer Relationship Specialty Start Date End Date Dg Kang MD [facility] [place] [address] PCP - General 02/03/21 Amada Rose APRN [address] [place] [address] Nurse Practitioner Neurosurgery 04/06/25 documented as of this encounter
--- OUTSIDE RECORDS SUMMARY | 2025-06-26 01:44 | XMS_ITS | Encounter Summary ---
Author Organization Healthcare Address [address] [place] [address] Care Team Providers Care Configuration Management Analyst Name Role Phone Dg Kang MD Primary Care Provider [phone] Amada Rose SUPERVISOR INCISING Unavailable [phone] Reason for Visit * Reason Onset Date Comments HCN - Patient Message 05/10/2025 Return daniela l Encounter Details Date Type Department Care Team (Late st Contact Info) Description 05/10/2025 Telephone [place] [facility] [address] [place] [address] Amada Rose, SUPERVISOR INCISING [address] [place] [address] HCN - Patient Message (Return [...] and Family Not on file 03/05/2025 Attends [employer] Not on file 03/05 Active Member [...] time in the past 12 m [facility], were you homeless or living [...] of day to reach caller: Please call [phone] Note: Please do not reply to this message. Follow-up communication and further actions as a result of this message need to be communicated with the patient directly, if the patient is not active onMyChart. If the patient is active on MyChart, they will receive notification of the communication/outcome via [employer]. documented in this encounter Plan of Treatment Not on file documented as of this encounter Visit Diagnoses Not on filedocumented in this encounter Additional Health Concerns Assessment Noted Time A Body Mass Index follow-up plan has been documented for the patient 04/06/2025 12:14 PM EDT documented as of this encounter Care Teams Configuration Management Analyst Relationship Specialty Start Date End Date Dg Kang MD [facility] [place] [address] PCP - General 02/03/21 Amada Rose APRN [address] [facility] [address] [place] [address] Nurse Practitioner Neurosurgery 04/06/25 documented as of this encounter
--- OUTSIDE RECORDS SUMMARY | 2025-06-26 01:44 | XMS_ITS | Encounter Summary ---
Author Organization Healthcare Address [address] [place] [address] Care Team Providers Care Automobile Service Writer Name Role Phone Dg Kang MD Primary Care Provider [phone] Amada Rose CIVIL CLERK Unavailable [phone] Encounter Details Date Type Department Care Team (Late st Contact Info) Description 05/07/2025 Orders Only External Location [address] [place] [address] Du Mcmahan MD [address] [place] [address] [place] [address] 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 Tobacco Use Types Packs/Day Years [...] and Family Not on file 03/05/2025 Attends [employer] Services Not on file 03/05 Active Member [...] time in the past 12 m [facility], were you homeless or living in [...] documented as of this encounter Care Teams Automobile Service Writer Relationship Specialty Start Date End Date Dg Kang MD [facility] [address] [place] [id number] PCP - General 02/03/21 Amada Rose APRN [address] [facility] [address] [place] [address] Nurse Practitioner Neurosurgery 04/06/25 documented as of this encounter
--- OUTSIDE RECORDS SUMMARY | 2025-06-26 01:44 | XMS_ITS | Clinical Summary ---
Author Organization [facility] Address [address] [place] [address] Care Team Providers Care Industrial Diamond Polisher Name Role Phone Dg Kang MD Primary Care Provider [phone] Amada Rose FOOD BAGGING MACHINE OPERATOR Unavailable [phone] Allergies Active Allergy Reactions Criticality Noted Date [...] - Please have patient follow up at [facility] with Neurosurgery NANETTE in 4-6 weeks with AP/Lateral XR of the lumbar spine and AP/Lateral XR of the thoracic spine: [facility] [place] ([facility]) Clinic, [address], 1st floor, [facility]. [address] [place] [address] #[phone] HTN (hypertension) 03/03/2025 Overview (03/10/2025): Assessment & [...] Type Department Care Team Description 05/10/2025 Telephone [place] Clinic [facility] Clinic [address], [address] [place] [address] Amada Rose APRN HCN - Patient Message (Return call) 05/07/2025 10:06 AM EDT - 05/08/2025 8:50 PM EDT Hospital Encounter [facility] Emergency Department [address] [place] [address] Anjel Medina MD Buckingham, Bradley P, MD Bronner, Jonathan M, MD Carter, Craig T, DO Fall, initial encounter (Primary Dx); Closed fracture of eleventh thoracic vertebra, unspecified fracture morphology, initial encounter ([facility]) Discharge Disposition: Home or Self Care 05/07/2025 Travel 05/07/2025 Orders Only External Location [address] [place] [id number] uD Mcmahan MD 05/07/2025 Orders Only External Location [address] [place] [id number] Du Mcmahan MD 05/07/2025 Orders Only External Location [address] [place] [address] Du Mcmahan MD 05/07/2025 Orders Only External Location [address] [place] [address] Du Mcmahan MD 05/07/2025 Orders Only External Location [address] [place] [address] Du Mcmahan MD 04/08/2025 Telephone [facility] [address], [address] [place] [address] Amada Rose APRN HCN - Patient Message 04/06/2025 10:40 AM EDT [facility] [address], [address] [place] [address] Amada Rose APRN Closed fracture of eleventh thoracic vertebra with routine healing, unspecified fracture morphology, subsequent encounter (Primary Dx); Fall from standing, initial encounter 04/06/2025 10:03 AM EDT - 04/06/2025 11:59 PM EDT Hospital Encounter [facility] [address], [address]st [place] [address] Closed fracture of eleventh thoracic vertebra with routine healing, unspecified fracture morphology, subsequent encounter Discharge Disposition: Home or Self Care 04/06/2025 Travel from Last 3 Months 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 Tobacco [...] and Family Not on file 03/05/2025 Attends Cheondoism Services Not on file 03/05 Active Member [...] any time in the past 12 m [facility], were you homeless or living in [...] Screening 1940 [facility]-Medicare Annual Wellness (AWV) 1940 [facility]-/Child/Adol SDOH Screenings 1939 [facility]-DTaP,Tdap,and Td Vaccine s (1 - Tdap) 1958 [facility]-Zoster Vaccines (1 of 2) 1958 [id number]-85 Vaccine (4 - season) 2025 08/23/2021, 11/16/2020, 10/19/2020 [facility]-Influenza Vaccine (#1) 05/24/202507/29, [...] routine healing, unspecified fracture morphology, subsequent encounter from Last 3 Months Results * ECG Adult (05/08/2025 11:45 AM EDT) EKG DIAGNOSIS CLASS Abnormal MUSE ECG Ventricular Rate 90 BPM MUSE ECG Atrial Rate 90 BPM MUSE ECG IL Interval 136 ms MUSE ECG QRSD Interval 70 ms MUSE ECG QT Interval 322 ms MUSE ECG QTC Interval 393 ms MUSE ECG P Accident 69 degrees MUSE ECG R Accident -42 degrees MUSE ECG T Wave Accident -47 degrees MUSE ECG Diagnosis Sinus rhythm [...] MUSE ECG Diagnosis Confirmed by Stevie Davison ([id number]) on 05/09/2025 9:43:28 AM MUSE ECG 05/08/2025 11:4 5 AM EDT 05/09/2025 9:43 AM EDT Result Sintia Rod MD ECG ORDERABLES Final Resu lt MUSE ECG * Gold Top (05/08/2025 11:26 AM EDT) Extra Hold for add-ons 05/08/2025 2:01 PM EDT [facility] Comment:Auto resulted. Blood Venous blood specimen / Unknown 05/08/2025 11:26 AM EDT 05/08/2025 11:45 AM EDT us Colten Rod MD LAB BLOOD ORDERABLES Final Result Performing Organization Address [facility] Co de Phone Number [facility] [address] [place] [address] * Lavender Top (05/08/2025 11:26 AM EDT) Extra Hold for add-ons 05/08/2025 2:01 PM EDT [facility] Comment:Auto resulted. Blood Venous blood specimen / Unknown 05/08/2025 11:26 AM EDT 05/08/2025 11:45 AM EDT us Colten Rod MD LAB BLOOD ORDERABLES Final Result Performing Organization Address City/[facility]/ZIP Co de Phone Number [facility] [address] [place] [address] * Light Blue Top (05/08/2025 11:26 AM EDT) Extra Hold for add-ons 05/08/2025 2:01 PM EDT [facility] Comment:Auto resulted. Blood Venous blood specimen / Unknown 05/08/2025 11:26 AM EDT 05/08/2025 11:45 AM EDT us Colten Rod MD LAB BLOOD ORDERABLES Final Result [facility] [address] [place] [address] * (ABNORMAL) Basic Metabolic Panel, Plasma (05/08/2025 [...] 11:26 AM EDT 05/08/2025 11:40 AM EDT Colten Rod MD LAB BLOOD ORDERABLES Final Result [facility] [address] [place] [address] * MR Lumbar Spine wo IV Contrast [...] Lawson on 05/07/2025 at 2145 hours by [employer]. Drafted by Beeb Burns MD on 05/07/2025 9:26 PM Final [...] spine CT performed 14 hours prior at [facility] Thoracic and lumbar spine MRI 03/03/2025 [...] is severe stenosis at right T1-2 and bmrduvnn-rm-tynvee stenosis at several mid thoracic levels. Prevertebral [...] spine CT performed 14 hours prior at [facility] Thoracic and lumbar spine MRI 03/03/2025 FINDINGS: Thoracic Spine: Diagnostic Quality: Adequate. Alignment: The bony alignment is normal. Marrow, Vertebrae and Intervertebral Discs: Linear T2 hyperintensity inthe anterior-inferior corner of the T11 vertebral body is consistent withfracture, confirmed on recent outside CT scan. Vertebral body heights arenormal. Multilevel disc desiccation and decreased disc heights. Avid B2rinezuugyjnlkc within the T11-12 and T12-L1 disc spaces [...] narrowing issevere stenosis at right T1-2 and nykjpgxt-dy-qtptyg stenosis at severalmid thoracic levels. Prevertebral and [...] Ja Lawson on 05/07/2025 at 2145 hours [employer]. Drafted by Bebe Burns MD on 05/07/2025 [...] Lawson on 05/07/2025 at 2145 hours by [employer]. Drafted by Bebe Burns MD on 05/07/2025 [...] spine CT performed 14 hours prior at [facility] Thoracic and lumbar spine MRI 03/03/2025 [...] is severe stenosis at right T1-2 and bohcppkk-kp-hdhlwf stenosis at several mid thoracic levels. Prevertebral [...] spine CT performed 14 hours prior at [facility] Thoracic and lumbar spine MRI 03/03/2025 FINDINGS: Thoracic Spine: Diagnostic Quality: Adequate. Alignment: The bony alignment is normal. Marrow, Vertebrae and Intervertebral Discs: Linear T2 hyperintensity inthe anterior-inferior corner of the T11 vertebral body is consistent withfracture, confirmed on recent outside CT scan. Vertebral body heights arenormal. Multilevel disc desiccation and decreased disc heights. Avid R1hnbdotfowqqpxm within the T11-12 and T12-L1 disc spaces [...] narrowing issevere stenosis at right T1-2 and daoeznoy-xi-jxvbuv stenosis at severalmid thoracic levels. Prevertebral and [...] No metallic density noted in the visualized uimeq-ey-mzze. ABDOMEN: Nonobstructive bowel gas pattern. L2-S1 posterior spinal fusion hardware. Otherwise, no metallic density noted in the visualized munbt-ft-hwvd. CRITICAL RESULT: No. COMMUNICATION: Per this written [...] effusion. No metallic density noted in the cmriddwkkklalzc-bb-arku. ABDOMEN: Nonobstructive bowel gas pattern. L2-S1 posterior spinal fusion hardware. Otherwise, no metallic densitynoted in the visualized gsyub-td-ompr. CRITICAL RESULT: No. COMMUNICATION: Per this written [...] No metallic density noted in the visualized dcytc-cb-dtty. ABDOMEN: Nonobstructive bowel gas pattern. L2-S1 posterior spinal fusion hardware. Otherwise, no metallic density noted in the visualized osynk-lf-tjml. CRITICAL RESULT: No. COMMUNICATION: Per this written [...] effusion. No metallic density noted in the kjqmwmfafskweeu-oa-ceqb. ABDOMEN: Nonobstructive bowel gas pattern. L2-S1 posterior spinal fusion hardware. Otherwise, no metallic densitynoted in the visualized fvpdv-nx-dkhh. CRITICAL RESULT: No. COMMUNICATION: Per this written [...] 6:32 AM EDT) Only the most recent of5 resultswithin the time period is included. Anatomical [...] MD on 04/06/2025 11:13 AM Amada Rose FOOD BAGGING MACHINE OPERATOR IMG XR PROCEDURES Final Resu [...] MD on 04/06/2025 11:13 AM Amada Rose FOOD BAGGING MACHINE OPERATOR IMG XR PROCEDURES Final Resu lt from Last 3 Months Insurance [employer] MEDICARE [...] updated to appropriate status: Yes Care Teams Industrial Diamond Polisher Relationship Specialty Start Date End Date Dg Kang MD [facility] [address] [place] [address] PCP - General 02/03/21 Amada Rose APRN [id number] [place] [address] Nurse Practitioner Neurosurgery 04/06/25
--- OUTSIDE RECORDS SUMMARY | 2025-06-26 01:44 | XMS_ITS | Encounter Summary ---
Author Organization Healthcare Address [address] [place] [address] Care Team Providers Care Saddle Mechanic Name Role Phone Dg Kang MD Primary Care Provider [phone] Amada Rose LATHE SETUP OPERATOR Unavailable [phone] Encounter Details Date Type Department Care Team (Late st Contact Info) Description 05/07/2025 Orders Only External Location [address] [place] [address] Du Mcmahan MD [address] [place] [address] [place] [address] 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 Tobacco Use Types Packs/Day Years [...] and Family Not on file 03/05/2025 Attends Sabianist Services Not on file 03/05 Active Member [...] documented as of this encounter Care Teams Saddle Mechanic Relationship Specialty Start Date End Date Dg Kang MD [facility] [address] [place] [id number] PCP - General 02/03/21 Amada Rose [facility]N [address] [facility] [address] [place] [address] Nurse Practitioner Neurosurgery 04/06/25 documented as of this encounter
--- OUTSIDE RECORDS SUMMARY | 2025-06-26 01:44 | XMS_ITS | Encounter Summary ---
Author Organization Healthcare Address [address] [place] [address] Care Team Providers Care Agricultural Science Professor Name Role Phone Dg Kang MD Primary Care Provider [phone] Amada Rose MAIL PROCESSING MACHINE OPERATOR Unavailable [phone] Encounter Details Date Type Department Care Team (Late st Contact Info) Description 05/07/2025 Orders Only External Location [address] [place] [address] Du Mcmahan MD [address] [place] [address] [place] [address] 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 Tobacco Use Types Packs/Day Years [...] and Family Not on file 03/05/2025 Attends Yarsani Services Not on file 03/05 Active Member [...] time in the past 12 m [facility], were you homeless or living in a [...] documented as of this encounter Care Teams Agricultural Science Professor Relationship Specialty Start Date End Date Dg Kang MD [facility] [address] [place] [id number] PCP - General 02/03/21 Amada Rose [facility]N [address] [facility] [address] [place] [address] Nurse Practitioner Neurosurgery 04/06/25 documented as of this encounter
--- OUTSIDE RECORDS SUMMARY | 2025-06-26 01:44 | XMS_ITS | Encounter Summary ---
Author Organization Healthcare Address [address] [place] [address] Care Team Providers Care Engine Hostler Name Role Phone Dg Kang MD Primary Care Provider [phone] Amada Rose INVESTIGATOR WELFARE Unavailable Encounter Details Date Type Department Care Team (Late st Contact Info) Description 05/07/2025 Orders Only External Location [address] [place] [address] Du Mcmahan MD [address] [place] [address] 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 Tobacco Use Types Packs/Day Years [...] documented as of this encounter Care Teams Engine Hostler Relationship Specialty Start Date End Date Dg Kang MD [facility] [address] [place] [id number] PCP - General 02/03/21 Amada Rose [facility]N [address] [facility] [address] [place] [address] Nurse Practitioner Neurosurgery 04/06/25 documented as of this encounter
--- OUTSIDE RECORDS SUMMARY | 2025-06-26 01:44 | XMS_ITS | Encounter Summary ---
Author Organization Healthcare Address [address] [place] [address] Care Team Providers Care Sample Puller Name Role Phone Dg Kang MD Primary Care Provider [phone] Amada Rose SUPERVISOR [employer] Unavailable [phone] Encounter Details Date Type Department Care Team (Late st Contact Info) Description 05/07/2025 Orders Only External Location [address] [place] [address] Du Mcmahan MD [address] [place] [address] 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 Tobacco Use Types Packs/Day Years [...] and Family Not on file 03/05/2025 Attends Sikh Services Not on file 03/05 Active Member [...] in the past 12 m [facility], were you homeless or living [...] documented as of this encounter Care Teams Sample Puller Relationship Specialty Start Date End Date Dg Kang MD [facility] [place] [facility] [address] [place] [id number] PCP - General 02/03/21 Amada Rose APRN [address] [facility] [address] [place] [address] Nurse Practitioner Neurosurgery 04/06/25 documented as of this encounter
[2025-06-26 02:45] LABS: Hematocrit 31.2 % (37.0-47.0); Hemoglobin 10.4 g/dL (12.2-16.2); Immature Granulocytes % 1.0 %; Mean Corpuscular HGB Conc 33.3 g/dL (31.8-35.4); Mean Corpuscular Hemoglobin 29.8 pg (27.0-31.2); Mean Corpuscular Volume 89.4 fl (81-99); Nucleated Red Blood Cells % 0 %; Platelet Count 310 K/mm3 (142-424); Red Blood Count 3.49 M/mm3 (4.20-5.40); Red Cell Distribution Width-SD 42.6 fL; White Blood Count 9.3 K/mm3 (4.8-10.8)
== END 2025-06-26 23:59 | disposition home or self-care (01) ==
LOC: LAB.DROPOF 01:42
PROVIDERS: PCP Nurse Practitioner Family; Visit Provider Nurse Practitioner Family
DX: R41.82 Altered mental status, unspecified (principal)
CPT/HCPCS: 85025

== ENCOUNTER 2025-06-29 13:00 | Observation (INO) | payer MEDICARE, MEDICAID, SELFPAY ==
--- OUTSIDE RECORDS SUMMARY | 2025-05-07 10:06 | XMS_ITS | Encounter Summary ---
Author Organization Healthcare Address [address] [place] [address] Care Team Providers Care Die Turner Name Role Phone Dg Kang MD Primary Care Provider [phone] Amada Rose WET PAN OPERATOR Unavailable [phone] Reason for Visit * Reason Comments Fall * Auth/Cert (Routine) Specialty Diagnoses / Procedures Referred By oTn willingham Referred To Contact Diagnoses new fracture from falls [facility] [address] [place] [address] Phone: tel: [facility] Emergency [facility] [address] [place] [address] Phone: tel: Referral ID Status Reason Start Date Expiration Date Visits Re quested Visits Authorized [id number] 1 1 Encounter Details Date Type Department Care Team (Latest Contact Info) Description 05/07/2025 10:06 AM EDT - 05/08/2025 8:50 PM EDT Hospital Encounter [facility] [address] [place] [address] Anjel Medina MD [address] [place] [address] Ki White MD [address] [place] [address] Colten Rod MD [address] [place] [address] Mynor Pedersen, DO [address] [place] [address] Fall, initial encounter (Primary Dx); Closed fracture of eleventh thoracic vertebra, unspecified fracture morphology, initial encounter ([facility]) Discharge Disposition: Home or Self [...] and Family Not on file 03/05/2025 Attends [employer] Not on file 03/05 Active Member [...] any time in the past 12 m [facility], were you homeless or living in a [...] to transition patient to retirement at [facility] as planned prior to arrival to the [...] name and Address: Dg Kang MD [address] [facility] [address] / [place] [id number] Referring provider name and address: Antonino Silvia Antonella, DO [address] [place] [address] Chief Concern, Brief History of Present Illness, and Hospital Course 85 y.o. with pertinent medical history of dementia, known T11 fracture from 02/2025, who is presenting from OSH with concerns of worsening T11/T12 injury. Patient was noted to have a ground level fallat home. Upon transferred [facility] with EMS, patient was grimacing in pain however denied pain verbally. Of note, patient was planning to transfer to [facility] in [place] prior to admission. patient was diagnosed with [...] to transition patient to retirement at [facility] as planned prior to arrival to the emergency department for continued medical care. If the patient develops worsening pain, numbness or tingling, mental status changes, please return to the ED for repeat evaluation Outpatient Follow-Up Future Appointments Date Time Provider Department Center 05/18/2025 9:20 AM Amada Rose APRN [facility] Test Results Pending At Discharge [...] Behavior normal. Discharge Disposition/Condition Disposition: Nursing facility ([facility]) Condition: Stable (s/sx potential problems absent or [...] up as previously scheduled on 05/18/[address] [facility] - Continue wearing TLSO brace OOB as previously recommended - Thank you for allowing us to participate in the care of this patient. Please call with any questions or concerns. [phone] Quan Stokes MD Resident Physician, PGY-2 Department of Neurosurgery [facility] Cosigned by Javier Garner MD at 05/17/2025 [...] mg Oral q6h PRN Toffey, Tiffanie E, WET PAN OPERATOR sodium chloride 0.9 % flush 10 mL 10 mL Intravenous q12h Toffey, Tiffanie E, WET PAN OPERATOR 10 mL at 05/07/25 1534 And sodium chloride 0.9 % flush 10 mL 10 mL Intravenous PRN Toffey, Tiffanie E, WET PAN OPERATOR Current Outpatient Medications Medication Sig Dispense Refill [...] 11:58 AM History Of Present Illness: Kelley Hua is a 85 y.o. female [...] 5/5 5/5 C7: Triceps 5/5 5/5 C8: Dry Cell Sealer 5/5 5/5 T1: Intrinsics 5/5 5/5 Lower [...] MD Resident Physician, PGY-2 Department of Neurosurgery [facility] [1] No current facility-administered medications for this [...] Patient lives with grandchild who is her grounds caretaker. 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 Reports more than 10 falls in the last three months. Patient has a hard shell brace that was not on at the time of fall but reports that she normally wears it when getting outof bed. Family at bedside stated they had secured a bed at [facility] and was pending admission today. [phone]. EASI-0 MNA-NC Geriatric Triage Risk Screening Tool [...] offer additional resources at request. 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 * ED Provider Notes - Ruth Angel [...] 2310 Date/Time Order Dose Route Action 05/07/2025 9074 EDT sodium chloride 0.9 % flush 10 mL 10 mL Intravenous Given All Other Orders Ordered Status Ordering Provider 05/07/252200 NPO diet NPO except: Sips with meds, Ice chips Diet effective midnight Acknowledged JA LAWSON 05/07/252200 Mobility Orders Until discontinued Acknowledged JA LAWOSN 05/07/252003 Adult diet Diet texture: Regular Diet [...] Linked Group Acknowledged TIFFANIE FRANKLIN 05/07/25 1415 Saline lock IV Once Placed [...] Contrast Once Final result RUTH ANGEL 05/07/25 1155 Consult to Neurosurgery Once [...] thoracic vertebra, unspecified fracture morphology, initial encounter ([facility]) Social Determinates of Health Risks (including Economic Stability, Education and level of understanding, Healthcare access and quality and concerning social factors): None identified on this visit Ultimately, this patient was Was admitted (Admission) The primary encounter diagnosis was Fall, initial encounter. A diagnosis of Closed fracture of eleventh thoracic vertebra, unspecified fracture morphology, initial encounter ([facility]) wasalso pertinent to this visit.. Patient believed [...] ECG Atrial Rate 90 BPM MUSE ECG AR Interval 136 ms MUSE ECG QRSD Interval 70 ms MUSE ECG QT Interval 322 ms MUSE ECG QTC Interval 393 ms MUSE ECG P [place] 69 degrees MUSE ECG R [place] -42 degrees MUSE ECG T Wave [place] -47 degrees MUSE ECG Diagnosis Sinus rhythm [...] MUSE ECG Diagnosis Confirmed by Stevie Davison ([id number]) on 05/09/2025 9:43:28 AM MUSE ECG 05/08/2025 11:4 5 AM EDT 05/09/2025 9:43 AM EDT Colten Rod MD ECG ORDERABLES Final Resu lt MUSE ECG * Gold Top (05/08/2025 11:26 AM EDT) Extra Hold for add-ons 05/08/2025 2:01 PM EDT [facility] Comment:Auto resulted. Blood Venous blood specimen / Unknown 05/08/2025 11:26 AM EDT 05/08/2025 11:45 AM EDT Colten Rod MD LAB BLOOD ORDERABLES Final Result [facility] [address] [place] [address] * Lavender Top (05/08/2025 11:26 AM EDT) Extra Hold for add-ons 05/08/2025 2:01 PM EDT [facility] Comment:Auto resulted. Blood Venous blood specimen / Unknown 05/08/2025 11:26 AM EDT 05/08/2025 11:45 AM EDT Colten Rod MD LAB BLOOD ORDERABLES Final Result Performing Organization Address [facility]/ZIP Co de Phone Number [facility] [address] [place] [address] * Light Blue Top (05/08/2025 11:26 AM EDT) Extra Hold for add-ons 05/08/2025 2:01 PM EDT [facility] Comment:Auto resulted. Blood Venous blood specimen / Unknown 05/08/2025 11:26 AM EDT 05/08/2025 11:45 AM EDT Colten Rod MD LAB BLOOD ORDERABLES Final Result Performing Organization Address City/[facility]/ZIP Co de Phone Number [facility] [address] [place] [address] * (ABNORMAL) Basic Metabolic Panel, Plasma (05/08/2025 11:26 AM EDT) Glucose, Plasma 105(H) 74 - 99 mg/dL 05/08/2025 12:01 PM EDT [facility] BUN, Plasma 12 8 - 23 mg/dL 05/08/2025 12:01 PM EDT [facility] Creatinine, Plasma 0.82 0.60 - 1.10 mg/dL 05/08/2025 12:01 PM EDT [facility] BUN/Creatinine Ratio 15 05/08/2025 12:01 PM EDT [facility] Sodium, Plasma 137 136 - 145 mmol/L 05/08/2025 12:01 PM EDT [facility] Potassium, Plasma 3.7 3.6 - 4.9 mmol/L 05/08/2025 12:01 PM EDT [facility] Chloride, Plasma 103 97 - 107 mmol/L 05/08/2025 12:01 PM EDT [facility] CO2, Plasma 22 22 - 29 mmol/L 05/08/2025 12:01 PM EDT [facility] Anion Gap 12 6 - 16 mmol/L 05/08/2025 12:01 PM EDT [facility] Total Calcium, Plasma 9.0 8.9 - 10.2 mg/dL 05/08/2025 12:01 PM EDT [facility] eGFRcr 69.8 mL/min/1.7 3m*2 05/08/2025 12:01 PM EDT [facility] Comment:Reported eGFRcr in m L/min/1.73m2 is based the CKD-EPI 2020 equation that does not use a race coefficient. Blood Venous blood specimen / Unknown Venipuncture / Unknown 05/08/2025 11:26 AM EDT 05/08/2025 11:40 AM EDT us Colten Rod MD LAB BLOOD ORDERABLES Final Result Performing Organization Address City/State/[facility] Co de Phone Number [facility] [address] [place] [address] * MR Lumbar Spine wo IV Contrast [...] Lawson on 05/07/2025 at 2145 hours by [employer] Drafted by Bebe Burns MD on 05/07/2025 [...] spine CT performed 14 hours prior at [facility] Thoracic and lumbar spine MRI [...] is severe stenosis at right T1-2 and eysooupv-zs-iptdba stenosis at several mid thoracic levels. Prevertebral [...] spine CT performed 14 hours prior at [facility] Thoracic and lumbar spine MRI 03/03/2025 FINDINGS: Thoracic Spine: Diagnostic Quality: Adequate. Alignment: The bony alignment is normal. Marrow, Vertebrae and Intervertebral Discs: Linear T2 hyperintensity inthe anterior-inferior corner of the T11 vertebral body is consistent withfracture, confirmed on recent outside CT scan. Vertebral body heights arenormal. Multilevel disc desiccation and decreased disc heights. Avid F5byasgcpujvnomi within the T11-12 and T12-L1 disc spaces [...] narrowing issevere stenosis at right T1-2 and pvjlbhph-im-pzfidm stenosis at severalmid thoracic levels. Prevertebral and [...] Lawson on 05/07/2025 at 2145 hours by [employer] Drafted by Bebe Burns MD on 05/07/2025 [...] spine CT performed 14 hours prior at [facility] Thoracic and lumbar spine MRI [...] is severe stenosis at right T1-2 and ldxvzxxu-fx-kipmwd stenosis at several mid thoracic levels. Prevertebral [...] spine CT performed 14 hours prior at [facility] Thoracic and lumbar spine MRI 03/03/2025 FINDINGS: Thoracic Spine: Diagnostic Quality: Adequate. Alignment: The bony alignment is normal. Marrow, Vertebrae and Intervertebral Discs: Linear T2 hyperintensity inthe anterior-inferior corner of the T11 vertebral body is consistent withfracture, confirmed on recent outside CT scan. Vertebral body heights arenormal. Multilevel disc desiccation and decreased disc heights. Avid X9bxaigamcxxefxq within the T11-12 and T12-L1 disc spaces [...] narrowing issevere stenosis at right T1-2 and ecykryem-hn-vmtuty stenosis at severalmid thoracic levels. Prevertebral and [...] Ja Lawson on 05/07/2025 at 2145 hours by[employer] message. Drafted by Bebe Burns MD on [...] No metallic density noted in the visualized cnidu-eq-sdhc. ABDOMEN: Nonobstructive bowel gas pattern. L2-S1 posterior spinal fusion hardware. Otherwise, no metallic density noted in the visualized miwgv-vl-gury. CRITICAL RESULT: No. COMMUNICATION: Per this written [...] effusion. No metallic density noted in the aoeljpmzlebewbc-ch-yslv. ABDOMEN: Nonobstructive bowel gas pattern. L2-S1 posterior spinal fusion hardware. Otherwise, no metallic densitynoted in the visualized phryi-zg-rlne. CRITICAL RESULT: No. COMMUNICATION: Per this written [...] No metallic density noted in the visualized zoikl-wp-cvti. ABDOMEN: Nonobstructive bowel gas pattern. L2-S1 posterior spinal fusion hardware. Otherwise, no metallic density noted in the visualized jmoym-gx-mjcz. CRITICAL RESULT: No. COMMUNICATION: Per this written report. Preliminary report signed by Sid Scott MD on 05/07/2025 2:10 PM By electronically signing this report, I, the attending physician, attest that I have personally reviewed the images/data for the above examination(s) and agree with the final edited report. Drafted by Sid Scott MD on 05/07/2025 2:07 PM Final report signed by Byrn Wayne MD on 05/07/2025 2:31 PM Narrative [...] effusion. No metallic density noted in the ajlkezsuikkhyid-ad-hgrt. ABDOMEN: Nonobstructive bowel gas pattern. L2-S1 posterior spinal fusion hardware. Otherwise, no metallic densitynoted in the visualized yvkcw-bq-zxyf. CRITICAL RESULT: No. COMMUNICATION: Per this written [...] thoracic vertebra, unspecified fracture morphology, initial encounter ([facility]) documented in this encounter Administered [...] documented as of this encounter Care Teams Die Turner Relationship Specialty Start Date End Date Dg Kang MD [facility] [address] [place] [address] PCP - General 02/03/21 Amada Rose APRN [address] [facility] [address] [place] [id number] Nurse Practitioner Neurosurgery 04/06/25 documented as of this encounter
[2025-06-29] VITALS (10 sets, daily range): BP systolic 142–178; BP diastolic 64–97; PULSE 80–88; RESP 13–21; TEMP 36.3–36.9; O2SAT 90–99; BMI 28.9; BMI 29.0; BMI 23.3
--- NOTE | 2025-06-29 12:58 | PC.NURSE ---
Stroke alert called @ [phone]
--- NOTE | 2025-06-29 13:01 | CT_ITS ---
FINAL REPORT TECHNIQUE: Thin section axial images were obtained from skull base to vertex without contrast. Coronal reconstruction images were obtained from the axial data. Exam was performed using dose reduction techniques such as automated exposure control, adjustment of the mA and kV according to patient size, and use of iterative reconstruction technique. CLINICAL HISTORY: possible stroke COMPARISON: 05/11/2025 FINDINGS: There is atrophy. No mass effect or midline shift. No intracranial hemorrhage. No hydrocephalus. Periventricular low density is likely related to changes of chronic small vessel ischemia. The basilar cisterns are preserved. The posterior fossa is without acute abnormality. The soft tissues are without acute abnormality. No acute osseous abnormality is identified. IMPRESSION: No acute intracranial abnormality. Atrophy and changes suggesting chronic small vessel ischemia. Reviewed, Interpreted and Dictated by Kailey Avitia MD Transcribed by Nohelia Marmolejo Authenticated and [facility]
--- NOTE | 2025-06-29 13:01 | CT_ITS ---
FINAL REPORT TECHNIQUE: Thin section axial images are obtained through the brain after intravenous contrast injection. Multiplanar reconstructions were obtained from the axial data. Exam was performed using dose reduction techniques such as automated exposure control, adjustment of the mA and kV according to patient size, and use of iterative reconstruction technique. CLINICAL HISTORY: possible stroke COMPARISON: 01/10/2023 FINDINGS: The intracerebral portions of the carotid arteries are patent. The anterior and middle cerebral arteries are patent. There is a persistent origin of the inspection engineer. The basilar artery is patent. The vertebral arteries are patent. There is no significant stenosis, aneurysm, or AVM. IMPRESSION: No evidence of large vessel occlusion or significant stenosis. Reviewed, Interpreted and Dictated by Kailey Avitia MD Transcribed by Nohelia Marmolejo Authenticated and [facility]
--- NOTE | 2025-06-29 13:01 | CT_ITS ---
FINAL REPORT TECHNIQUE: Thin section axial images were obtained from the aortic arch to the skull base after intravenous contrast injection per CTA protocol. Multiplanar reconstruction images were obtained. Exam was performed using dose reduction techniques and the ALARA principle. CLINICAL HISTORY: possible stroke COMPARISON: 01/10/2023 FINDINGS: CTA NECK: Aortic arch: There is a normal three-vessel configuration to the aortic arch. There is no significant stenosis of the great vessels at their origins. Right carotid artery: There is minimal calcification at the carotid bulb. The right common carotid artery is patent without stenosis. The cervical portions of the right internal carotid artery are patent without stenosis. 0% stenosis per NASCET criteria. Left carotid artery: There is minimal calcification at the carotid bulb. The left common carotid artery is patent without stenosis. The cervical portions of the left internal carotid artery are patent without stenosis. 0% stenosis per NASCET criteria. Vertebral arteries: The vertebral arteries are patent. The right vertebral artery likely terminates in the inferior cerebellar branch. No significant stenosis. Other soft tissues: No acute soft tissue abnormality.. IMPRESSION: 0% stenosis of the carotid arteries. Patent vertebral arteries bilaterally Reviewed, Interpreted and Dictated by Kailey Avitia MD Transcribed by Nohelia Marmolejo Authenticated and [facility]
--- NOTE | 2025-06-29 13:04 | HMH.EDGENADL ---
Discharge Plan Disposition Patient Disposition: Admitted Condition: Fair Clinical Impressions Clinical Impression: Urinary tract infection, Acute encephalopathy Discharge ED Provider: Dann Diaz Adult HPI General Chief complaint: Neuro Symptoms/Deficit Stated complaint: possible stroke Time Seen by Provider: 06/29/25 13:01 History of Present Illness HPI narrative: This is an 85-year-old female patient, with past medical history of hypertension, hyperlipidemia, history of TIAs, chronic tremors, and GERD, who is presenting to the emergency department today for evaluation as a stroke alert. Patient reportedly lives at an assisted living facility and woke up this morning in her usual state of health. At around 1230 she had a sudden change where she essentially became limp, weak, and suddenly altered. EMS was called to the scene and called her in as a stroke alert. They were unable to perform any kind of adequate neuroassessment secondary to the patient's mental status. Related Data Home Medications ?Medication ?Instructions ?Recorded ?Confirmed acetaminophen 500 mg tablet 1,000 mg PO Q6H PRN Pain (Scale 06/29/25 06/29/25 Score 1-3) aspirin 81 mg chewable tablet 81 mg PO DAILY 06/29/25 06/29/25 atorvastatin 10 mg tablet 10 mg PO HS 06/29/25 06/29/25 cetirizine 10 mg tablet 10 mg PO DAILY 06/29/25 06/29/25 cholecalciferol (vitamin D3) 50 50 mcg PO DAILY 06/29/25 06/29/25 mcg (2,000 unit) capsule (Vitamin D3) citalopram 10 mg tablet 10 mg PO DAILY 06/29/25 06/29/25 levalbuterol HCl 1.25 mg/3 mL 1.25 mg inhalation Q8H PRN Asthma 06/29/25 06/29/25 solution for nebulization losartan 100 mg tablet 100 mg PO DAILY 06/29/25 06/29/25 mecobalamin (vitamin B12) 1,000 1,000 mcg PO DAILY 06/29/25 06/29/25 mcg chewable tablet (B12 Active) omeprazole 20 mg capsule,delayed 20 mg PO HS 06/29/25 06/29/25 release primidone 250 mg tablet 250 mg PO HS 06/29/25 06/29/25 propranolol 60 mg tablet 60 mg PO BID 06/29/25 06/29/25 Previous Rx's ?Medication ?Instructions ?Recorded gabapentin 300 mg capsule 600 mg (2 x 300 mg) PO HS #60 caps 03/04/25 memantine 10 mg tablet (Namenda) 10 mg PO BID #60 tabs 03/04/25 Allergies Allergy/AdvReac Type Severity Reaction Status Date / Time glucosamine Allergy Unknown BOWELS Verified 04/29/25 11:01 BLEEDING Sulfa (Sulfonamide Allergy Unknown Verified 04/29/25 11:01 Antibiotics) donepezil Allergy Verified 04/29/25 11:01 Penicillins Allergy Verified 04/29/25 11:01 sulfamethoxazole AdvReac Verified 04/29/25 11:01 [facility]SH [facility] Disclaimer: The information contained in this section may have been updated after the patient was seen, as this information can be updated by other users. 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 , [employer]) Smoking Status: Never smoker alcohol intake: never substance use type: denies use current occupational status: other Travel in the last 8 weeks?: None household members: none housing: house current occupational exposures/hazards: No caffeine: No Have you lived/traveled outside [place] in past 30 days?: No Contact w/someone who lives/traveled outside [place] past 30 days?: No Exposure to someone with infectious disease in past 14 days?: No Do you have a fever (greater than 100.4 F or 38 C)?: No Have you tested positive for COVID-19?: No Exposed to someone with COVID-19 in past 14 days?: No Do you have a sore throat?: No Do you have a cough?: No Do you have any weakness?: No Do you have any diarrhea?: No Are you experiencing any unusual bleeding?: No Do you have any muscle aches/pain?: No Do you have any abdominal pain?: No Are you experiencing loss of taste or smell?: No Other Medical History Have you received the Flu Vaccine for this season: Yes Have you received the Pneumonia Vaccine: Yes ROS Obtained: Yes unobtainable due to mental status Physical Exam General General appearance: other (See MDM) Respiratory Respiratory exam: Present other (See MDM) Cardiovascular Cardiovascular exam: Present other (See MDM) Neurological Exam Neurological exam: Present other (See MDM) Medical Decision Making Medical Records Medical records reviewed: Yes I reviewed the patient's medical records. Screening: Per USPSTF and CDC recommendations, given the prevalence of disease in our region, it is our hospital?s policy to screen for HIV and viral Hepatitis for all patients aged 18 and over and those with ongoing risk factors. [place] Inquiry Pt receiving controlled substance: No [place] was queried for this patient: No Vital Signs: 06/29/25 12:59 06/29/25 13:13 06/29/25 13:31 Temperature 97.6 F Temperature Source Rectal Pulse Rate 81 81 Pulse Rate [Right Radial] 82 Respiratory Rate 15 15 13 Blood Pressure 157/91 H 178/64 H Blood Pressure [Right Arm] 157/91 H Blood Pressure Mean [Right Arm] 113 Blood Pressure Source Blood Pressure Source [Right Arm] Automatic Cuff Blood Pressure Position Blood Pressure Position [Right Arm] Supine 02 Sat by Pulse Oximetry 99 90 L 95 Oxygen Delivery Method Room Air 06/29/25 14:00 06/29/25 14:30 06/29/25 15:49 Temperature 97.6 F Temperature Source Axillary Pulse Rate 80 80 80 Pulse Rate [Right Radial] Respiratory Rate 21 20 18 Blood Pressure 153/86 H 142/97 H 147/87 H Blood Pressure [Right Arm] Blood Pressure Mean [Right Arm] Blood Pressure Source Automatic Cuff Blood Pressure Source [Right Arm] Blood Pressure Position Supine Blood Pressure Position [Right Arm] 02 Sat by Pulse Oximetry 95 95 Oxygen Delivery Method Room Air Lab Data Lab Results 06/29/25 12:55: WBC 12.7 H, RBC 4.05 L, Hgb 12.0 L, Hct 36.5 L, MCV 90.1, MCH 29.6, MCHC 32.9, RDW 13.4, Plt Count 325, MPV 9.2, Neut % (Auto) 79.7, Lymph % (Auto) 9.2 L, [place] % (Auto) 5.6, Eos % (Auto) 3.6, Baso % (Auto) 1.3, Neut # (Auto) 10.1 H, Lymph # (Auto) 1.2, [place] # (Auto) 0.7, Eos # (Auto) 0.5 H, Baso # (Auto) 0.2, PT 11.1, INR 1.00, APTT 26.7, Sodium 137, Potassium 3.7, Chloride 99, Carbon Dioxide 31 H, Anion Gap 10.7, BUN 14, Creatinine 0.80, Estimated Creat Clear 52, Estimated GFR 68, Est GFR ( Amer) 82, Glucose 111 H, Calcium 9.4, Total Bilirubin 0.4, AST 28, ALT 13, Alkaline Phosphatase 142 H, Troponin I < 0.01, Total Protein 6.2 L, Albumin 3.5, Globulin 2.7, Albumin/Globulin Ratio 1.3, Triglycerides 201 H, Cholesterol 136 L, LDL Cholesterol Direct 55.80 L, VLDL Cholesterol 40, HDL Cholesterol 34 L, Cholesterol/HDL Ratio 4.0 H, Plasma/Serum Alcohol < 10 06/29/25 13:20: Urine Color Yellow, Urine Appearance Clear, Urine pH 6.0, Ur Specific [place] 1.015, Urine Protein Negative, Urine Glucose (UA) Negative, Urine Ketones Negative, Urine Blood Negative, Urine Nitrate Positive A, Urine Bilirubin Negative, Urine Urobilinogen 0.2, Ur Leukocyte Esterase 1+ A, Urine RBC None, Urine WBC 3-5, Ur Squamous Epith Cells 3-5, Urine Bacteria 4+ 06/29/25 13:31: Urine Opiates Screen Negative, Urine Methadone Screen Negative, Ur Barbituates Screen Positive H, Ur Phencyclidine Scrn Negative, Ur Amphetamines Screen Negative, U Benzodiazepines Scrn Negative, Urine Cocaine Screen Negative, U Marijuana (THC) Screen Negative 06/29/25 12:55 06/29/25 12:55 Orders (Tests/Meds): ED MEDICATIONS Generic Name Dose Route Start Last Admin Trade Name Freq PRN Reason Stop Dose Admin Acetaminophen 650 mg 06/29/25 16:09 Acetaminophen 325mg Tab PO 07/29/25 16:08 Q4HP PRN Fever or Mild Pain (1-3) Enoxaparin Sodium 40 mg 06/30/25 09:00 Enoxaparin 40mg/0.4ml Syringe SUBCUT 07/30/25 08:59 DAILY ELIZABETH Ceftriaxone Sodium 2 gm/ 100 mls @ 200 mls/hr 06/29/25 15:15 06/29/25 15:30 Sodium Chloride IV 07/09/25 15:14 200 mls/hr Q24H ELIZABETH Administration Ondansetron HCl 4 mg 06/29/25 16:09 Ondansetron 4mg/2ml Vial IV 07/29/25 16:08 Q8HP PRN Nausea Sodium Chloride 10 ml 06/29/25 13:01 Sodium Chloride 0.9% 10ml Flush Syringe IV 07/29/25 13:00 NEEDED PRN Maintain IV Site Sodium Chloride 10 ml 06/29/25 13:04 06/29/25 13:05 Sodium Chloride 0.9% 10ml Syr (Rad Only) IV 07/29/25 13:03 10 ml NEEDED PRN Administration Maintain IV Site Discontinued Medications Generic Name Dose Route Start Last Admin Trade Name Lucina PRN Reason Stop Dose Admin Iopamidol 80 ml 06/29/25 13:04 06/29/25 13:05 Iopamidol-370 (76%);100ml Bottle IV 06/29/25 13:05 80 ml ONCE ONE Administration Sodium Chloride 50 ml 06/29/25 13:04 06/29/25 13:05 0.9 % Sodium Chloride 50 Ml Vial IV 06/29/25 13:05 50 ml ONCE ONE Administration ORDERS Category Date Time Status CT angio head Stat Cat Scan 06/29/25 13:[address] angio neck Stat Cat Scan 06/29/25 13:[address] head/brain wo con Stat Cat Scan 06/29/25 13:01 Completed CXR --portable [XR chest portable] Stat Exams 06/29/25 13:22 Completed Activated Partial Thrombo Time Stat Lab 06/29/25 12:55 Completed Complete Blood Count Auto Diff Stat Lab 06/29/25 12:55 Completed Comprehensive Metabolic Panel Stat Lab 06/29/25 12:55 Completed Drug Screen,Urine Stat Lab 06/29/25 13:31 Completed Ethyl Alcohol Stat Lab 06/29/25 12:55 Completed Lipid Panel Stat Lab 06/29/25 12:55 Completed Mini Respiratory Panel Stat Lab 06/29/25 13:22 Ordered Prothrombin Time INR Stat Lab 06/29/25 12:55 Completed Troponin I Q3H Lab 06/29/25 16:15 Ordered Troponin I Q3H Lab 06/29/25 19:15 Ordered Troponin I Stat Lab 06/29/25 12:55 Completed Urinalysis and Microscopic Stat Lab 06/29/25 13:20 Completed Blood Culture Stat Micro 06/29/25 15:20 Received Urine Culture Stat Micro 06/29/25 13:20 Received Medical Decision Narrative: In summary, this is an 85-year-old female patient with past medical history of Alzheimer's dementia, hypertension, hyperlipidemia, recurrent falls, prior TIAs, and essential tremors, who is presenting to the emergency department today for evaluation of encephalopathy. I was able to speak with both the patient's daughter and the patient's intermediate staff who provided collateral history after HPI was written. Per daughter the patient was recently diagnosed with pneumonia and has been on outpatient oral antibiotics for this. Over the last couple of days she has become progressively weaker and progressively more altered and less communicative. Today at the intermediate the patient was in the cafeteria and had a period where she became markedly pale and suffered a syncopal episode. She was transferred over to a stretcher and her legs were lifted into the air and she subsequently regained consciousness but seem to have some difficulty with speaking. Therefore EMS was called to the scene and she was called in as a stroke alert. On arrival to the emergency department the patient was hemodynamically stable and saturating well on room air. She appears ill and very weak. She is also pale. She was immediately taken to the CT scanner for a CTA of the head and neck and CT head without contrast. After the scans were performed I performed a formal neurologic assessment. She has 5 out of 5 strength in her bilateral upper and lower extremities without drift. She is able to follow commands. Her extraocular movements are intact and her visual awan are full. She has some difficulty with speaking, but she is able to repeat words adequately and she is able to recall her first name. She does not know the year or the place or situation. She was able to perform finger-nose testing bilaterally without ataxia. Her sensation is intact in all 4 extremities without any obvious signs of neglect. Due to her disorientation and slurring of speech her NIH is 4. However, I feel that some of this is likely due to her encephalopathy and mixed dementia. I do not feel that this patient is having a stroke. Differential diagnosis includes acute encephalopathy, ACS/NM, electrolyte derangement, acute kidney injury, urinary tract infection, pneumonia, sepsis, stroke, among others. EKG was obtained and personally interpreted by me and demonstrates normal sinus rhythm with a rate of 80 bpm, normal axis, no NH prolongation, narrow QRS, no QTc prolongation. No ST elevation or depression. No overt signs of ischemia or arrhythmia. There is baseline artifact that makes this difficult to interpret fully. CT head was personally interpreted by me and demonstrates no large intracranial hemorrhages. CTA of the head and neck was interpreted by radiology and demonstrates 0% stenosis of the carotid system and no intracranial vascular occlusions. Labs were personally interpreted by me and demonstrates a mild leukocytosis of 12.7, her anemia is improved from prior with an H&H of 12/36.5. PT/INR is within normal limits. APTT is normal. She has no significant electrolyte derangements or acute kidney injury. Her troponin is less than 0.01. Urine studies were obtained and demonstrates white blood cells with 4+ bacteria and positive nitrates. I feel that this consistent with urinary tract infection. We have administered 2 g of Rocephin for urinary tract infection at this time. Ultimately I feel that this patient's presentation is most consistent with urinary tract infection associated with encephalopathy. I have had an interactive discussion with the internal medicine service who has agreed to evaluate the patient the emergency department. After our discussion of their evaluation have agreed to admit the patient to their service and except primary responsibility the patient moving forward. Critical Care Critical Care Time Critical Care Time: No
[2025-06-29] MEDS: SODIUM CHLORIDE 0.9% 10ML SYR (RAD ONLY) 10 ML IV (13:05)
[2025-06-29] MEDS: IOPAMIDOL-370 (76%);100ML BOTTLE 80 ML IV (13:05)
[2025-06-29] MEDS: 0.9 % SODIUM CHLORIDE 50 ML VIAL IV (13:05)
[2025-06-29 13:06] LABS: Hematocrit 36.5 % (37.0-47.0); Hemoglobin 12.0 g/dL (12.2-16.2); Immature Granulocytes % 0.6 %; Mean Corpuscular HGB Conc 32.9 g/dL (31.8-35.4); Mean Corpuscular Hemoglobin 29.6 pg (27.0-31.2); Mean Corpuscular Volume 90.1 fl (81-99); Nucleated Red Blood Cells % 0 %; Platelet Count 325 K/mm3 (142-424); Red Blood Count 4.05 M/mm3 (4.20-5.40); Red Cell Distribution Width-SD 43.8 fL; White Blood Count 12.7 K/mm3 (4.8-10.8)
--- OUTSIDE RECORDS SUMMARY | 2025-06-29 13:09 | XMS_ITS | Data Portability ---
Author Organization [place] - [facility] [place] [facility] [place] [facility] Address [address] [place] [phone] Assessment No assessment recorded. Plan of Treatment [...] 13.7 K/uL 4.0-10 .5 high Not Available [facility] ([facility]) [address] [place], [address], 02/02/2025 12:05:25 02/03/20 25 02/02/2025 CBC NO DIFF (HEMO GRAM) RBC 4.2 M/mm3 4.2-6. 4 Not Available [facility] ([facility]) [address] [place], [address], 02/02/2025 12:05:25 02/03/20 25 02/02/2025 CBC NO DIFF (HEMO GRAM) HGB 12.5 gm/dL 12.5-1 6.0 Not Available [facility] ([facility]) [address] [place], [address], 02/02/2025 12:05:25 02/03/20 25 02/02/2025 CBC NO DIFF (HEMO GRAM) HCT 38.3 % 37.0-4 7.0 Not Available [facility] ([facility]) [address], [place], [address], 02/02/2025 12:05:25 02/03/20 25 02/02/2025 CBC NO DIFF (HEMO GRAM) MCV 92.1 fL 78-100 Not Available [facility] ([facility]) [address], [place], [address], 02/02/2025 12:05:25 02/03/20 25 02/02/2025 CBC NO DIFF (HEMO GRAM) MCH 30.0 pg 27-31 Not Available [facility] ([facility]) [address], [place], [address], 02/02/2025 12:05:25 02/03/20 25 02/02/2025 CBC NO DIFF (HEMO GRAM) MCHC 32.6 g/dL 32-36 Not Available [facility] ([facility]) [address], [place], [address], 02/02/2025 12:05:25 02/03/20 25 02/02/2025 CBC NO DIFF (HEMO GRAM) RDW 13.9 % 11.5-1 4.0 Not Available [facility] ([facility]) [address], [place], [address], 02/02/2025 12:05:25 02/03/20 25 02/02/2025 CBC NO DIFF (HEMO GRAM) platelet count 237 K/uL 150-45 0 Not Available [facility] ([facility]) [address] [place], [address], 02/02/2025 12:05:25 02/03/20 25 02/02/2025 CBC NO DIFF (HEMO GRAM) MPV 10.6 fL 6-9.5 high Not Available [facility] ([facility]) [address], [place], [address], 02/02/2025 12:05:25 02/03/20 25 02/02/2025 CBC NO DIFF (HEMO GRAM) manual differential NO Not Available [facility] ([facility]) [address] , [place], [address], 02/02/2025 12:05:25 02/03/20 25 02/02/2025 BASIC METAB OLIC PANEL sodium 138 mmol/ L 136-14 5 Not Available [facility] ([facility]) [address], [place], [address], 02/02/2025 12:32:23 02/03/20 25 02/02/2025 BASIC METAB OLIC PANEL potassium 3.9 mmol/ L 3.6-5. 0 Not Available [facility] ([facility]) [address], [place], [address], 02/02/2025 12:32:23 02/03/20 25 02/02/2025 BASIC METAB OLIC PANEL chloride 103 mmol/ L 98-107 Not Available [facility] ([facility]) [address], [place], [address], 02/02/2025 12:32:23 02/03/20 25 02/02/2025 BASIC METAB OLIC PANEL carbon dioxide 29.4 mmol/ L 21.0-3 2.0 Not Available [facility] ([facility]) [address] , [place], [address], 02/02/2025 12:32:23 02/03/20 25 02/02/2025 BASIC METAB OLIC PANEL anion gap 9.5 Not Available [facility] ([facility]) [address] [place], [address], 02/02/2025 12:32:23 02/03/20 25 02/02/2025 BASIC METAB OLIC PANEL glucose 114 mg/dL 70-120 Not Available [facility] ([facility]) [address], [place], [address], 02/02/2025 12:32:23 02/03/20 25 02/02/2025 BASIC METAB OLIC PANEL BUN 17 mg/dL 7-18 Not Available [facility] ([facility]) [address] [facility], [place], [address], 02/02/2025 12:32:23 02/03/20 25 02/02/2025 BASIC METAB OLIC PANEL creatinine 1.1 mg/dL 0.6-1. 3 Not Available [facility] ([facility]) [address] [facility], [place], [address], 02/02/2025 12:32:23 02/03/20 25 02/02/2025 BASIC METAB [...] velazco ing kiney funct ion. Not Available [facility] ([facility]) [address] [facility], [place], [address], 02/02/2025 12:32:23 02/03/20 25 02/02/2025 BASIC METAB OLIC PANEL osmolality (calculated) 290 mOsm/ kg 275-30 1 OSMOL ALITY IS A CALCU LATIO N UTILI ZING THE SERUM /PLAS MA SODIU M, GLUCO SE AND UREA NITRO GEN (BUN) LEVEL S. FOR THE MOST ACCUR ATE RESUL T A MEASU RED SERUM OSMOL ALITY IS SUGGE STED. Not Available [facility] ([facility]) [address] [facility], [place], [address], 02/02/2025 12:32:23 02/03/20 25 02/02/2025 BASIC METAB OLIC PANEL calcium 9.6 mg/dL 8.5-10 .5 Not Available [facility] ([facility]) [address] [facility], [place], [address], 02/02/2025 12:32:23 03/17/20 24 03/17/2024 audio gram No observ ation record ed. [email or web address] Not Available 2023 14:19:46 Result Notes None recorded. Problems Name Problem SNOMED Code Status Onset Date Resolution Date Notes Provider Name and Address Organization Details Recorded Time Sensorineural hearing loss 46228033 Active 2023 MIRNA MURILLO [address], [place], [address] , [facility] [place] 4 11:09:07 Problem Notes None recorded. Procedures Surgical History Date Name Laterality Status Provider Name and Address Organization Details Recorded Time Back Surgery completed Corrie Brown[place] - [facility] [place] 02/02/2025 10:01:45 Total Hysterectomy completed Corriemarj Brownlee [place] - [facility] [place] 02/02/2025 10:01:54 Colonoscopy completed Corriemarj Brownlee [place] [facility] [place] 02/02/2025 10:02:18 Imaging Results None recorded. Procedure Notes None recorded. Medical Equipment None Reported. Allergies Allergen ID Allergen Name Allergen Category Reaction Reaction Severity Criticality Documentation Date Start Date Code Code System Note Provider Name and Address Organization Details Recorded Time 079964 Substance with sulfonami de structure and antibacte rial mechanism of action (substanc e) medicatio n Not available Not available Not available 02/02/2025 43755 8003 SNOMED Corrie Kem barros, [place] - [facility] [place] 5 09:57:38 Medications Name Sig Start Date [...] Updated DateTime 5 152.4 cm 29.9 kg/m2 50565.6 3 g 97 [degF] 61 /min 142/84 mm[Hg] Corrie Brownlee [facility] [place] [facility] [place] 5 09:57:24 Date Recorded Body height Body mass index (BMI) Body weight Body temperature Oxygen saturation Oxygen saturation in Arterial blood by Pulse oximetry Heart rate Systolic And Diastolic Provider Name and Address Organization Details Last Updated DateTime 152.4 cm 29.9 kg/m2 13423.6 3 g 98.1 [degF] 96 % 96 % 58 /min 124/66 mm[Hg] Ibeth Bonilla [facility] & [place] 13:39:52 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 None recorded. Functional Status Question Answer Note LastModified by Organization D etails LastModified Time What is your level of alcohol consumption? None Information not available 02/02/2025 Mental Status None recorded. Family History Relationship Description Onset Age of this Age Resolved Age Notes LastModified by Organization Details LastModified Time Father Heart disease [email or web address] Not available 2024 10:00:25 Sister Heart disease [email or web address] Not available 2024 10:00:25 Sister Malignant neoplasm of skin of face [email or web address] Not available 10:01:10 Medical History Condition Response Arthritis Y Reflux/GERD Y Asthma Y Gynecological HistoryNo gynecological history recorded. Obstetrics History GPAL:G 0 P 0 0 0 0 Immunizations Vaccine Type Date Status Note Provider Nam e and Address Organization Details Recorded Time influenza, unspecified formulation 07/07/2024 [facility] [place] 02/02/2025 09:59:26 Past Encounters Encounter ID Performer Location Encounter Start Date Encounter Closed Date Diagnosis/Indication Diagnosis SNOMED-CT Code Diagnosis ICD10 Code Diagnosis IMO Codes Diagnosis Note [id number] MIRNA MURILLO [facility] [place] [address] [place] [address] 03/17/2024 09:34:57 03/17/2024 09:57:42 Sensorineural hearing loss 52301125 H90.3 [id number] MIRNA [facility]URILLO [facility] [address] [address] 05/13/2024 11:41:32 05/13/2024 12:05:45 Sensorineural hearing loss 15332041 H90.3 [id number] Adriane Alarcon MD [facility] Gen Surg [facility] [address] [facility] [address] [place] [address] 02/02/2025 09:49:41 02/02/2025 10:41:53 Eye / vision finding 742252970 H53.9 [id number] I have scheduled the patient for urgent [...] Erythrocyt e sedimentation rate above reference range 421062079 R70.0 537261 [id number] Adriane Alarcon MD [facility] Gen [facility] [address] [facility] [address] [place] [address] 02/22/2025 13:32:26 02/22/2025 14:31:21 Eye / vision finding 890972889 H53.9 [id number] Stable postop, no restrictio ns Erythrocyt e sedimentation rate above reference range 473128431 R70.0 [id number] Health Concerns Section Related Observation LastModified by Organization Detai ls LastModified Time None Recorded Concern Status LastModified by Organization Details LastModified Time None Recorded Advance Directives Directive None Recorded Payers Insurance Date Sequence Insurance Name Policy Number Policy Patel Covered Member ID Patel Member ID Guarantor Name 05/09/2025 2 [employer]-[facility] CHOICES - FFS/TRADITIO NAL Kelley Hua [id number] 05/09/2025 1 [employer] (MEDICARE REPLACEMENT/ ADVANTAGE - PPO) Kelley Hua [id number] Notes Date Note Type Note Provider Name [...] testing annually. MIRNA MURILLO [address], [place], [address], [facility] & [place] 03/17/2024 11:11:36 05/13/2024 text/html Ms. Hua was seen today for a hearing aid fitting in the [place]. She was fit with [employer] [address]A hearing aid. F/u prn. RANDALL BOYER, MIRNA [address], [place], [address], [facility] [place] 05/13/2024 12:10:18 02/02/2025 text/html 84 year old woman referred for temporal artery biopsy. She has had visual changes in her right eye and elevated ESR. She was started on prednisone on 01/29. Adriane Alarcon MD [address], [place], [address], [facility] [place] 02/02/2025 11:14:06 02/22/2025 text/html S/P right temporal artery biopsy. Pathology did not show any evidence of vasculitis. No complaints, has follow up with ophthalmology later today. Adriane Alarcon MD [address], [place], [address], [facility] [place] 02/22/2025 14:23:30 OBGyn Episode No OBEpisode recorded.
--- OUTSIDE RECORDS SUMMARY | 2025-06-29 13:09 | XMS_ITS | Patient Health Record ---
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
--- OUTSIDE RECORDS SUMMARY | 2025-06-29 13:10 | XMS_ITS | Encounter Summary ---
Author Organization Healthcare Address [address] [place] [address] Care Team Providers Care Senior Mechanical Project Manager Name Role Phone Dg Kang MD Primary Care Provider [phone] Amada Rose [employer] Unavailable Encounter Details Date Type Department Care Team (Late st Contact Info) Description 05/07/2025 Orders Only External Location [address] [place] [address] Du Mcmahan MD [address] [place] [address] [place] [address] 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 Tobacco Use Types Packs/Day Years [...] and Family Not on file 03/05/2025 Attends Buddhist Services Not on file 03/05 Active Member [...] in the past 12 m [facility], were you homeless or living [...] as of this encounter Care Teams Senior Mechanical Project Manager Relationship Specialty Start Date End Date Dg Kang MD [id number] [address] [place] [id number] PCP - General 02/03/21 Amada Rose APRN [address] [facility] [address] [place] [address] Nurse Practitioner Neurosurgery 04/06/25 documented as of this encounter
--- OUTSIDE RECORDS SUMMARY | 2025-06-29 13:10 | XMS_ITS | Encounter Summary ---
Author Organization Healthcare Address [address] [place] [address] Care Team Providers Care Chef Kitchen Manager Name Role Phone Dg Kang MD Primary Care Provider [phone] Amada Rose BINDER LAYER Unavailable [phone] Reason for Visit * Reason Onset Date Comments HCN - Patient Message 04/08/2025 Encounter Details Date Type Department Care Team (Late st Contact Info) Description 04/08/2025 Telephone [facility] [address] [place] [address] Amada Rose, BINDER LAYER [address] [place] [address] HCN - Patient Message Social [...] and Family Not on file 03/05/2025 Attends Church Services Not on file 03/05 Active Member [...] any time in the past 12 m [facility], were you homeless or living in a alf (including now)? No 03/05/2025 Utilities Answer Date Recorded In the past 12 months has th e [place], [place], oil, or water [place] threatened to shut off services in your [...] time of day to reach caller: Leah [phone] Note: Please do not reply to this message. Follow-up communication and further actions as a result of this message need to be communicated with the patient directly, if the patient is not active onMyChart. If the patient is active on MyChart, they will receive notification of the communication/outcome via [employer]. documented in this encounter Plan of Treatment Not on file documented as of this encounter Visit Diagnoses Not on filedocumented in this encounter Additional Health Concerns Assessment Noted Time A Body Mass Index follow-up plan has been documented for the patient 04/06/2025 12:14 PM EDT documented as of this encounter Care Teams Chef Kitchen Manager Relationship Specialty Start Date End Date Dg Kang MD [facility] [place] [address] [place] [address] PCP - General 02/03/21 Amada Rose APRN [address] [place] [address] Nurse Practitioner Neurosurgery 04/06/25 documented as of this encounter
--- OUTSIDE RECORDS SUMMARY | 2025-06-29 13:10 | XMS_ITS | Encounter Summary ---
Author Organization Healthcare Address [address] [place] [address] Care Team Providers Care Summer Babysitter Name Role Phone Dg Kang MD Primary Care Provider [phone] Amada Rose ANALYTICAL CONSULTANT Unavailable [phone] Encounter Details Date Type Department Care Team (Late st Contact Info) Description 05/07/2025 Orders Only External Location [address] [place] [address] Du Mcmahan MD [address] [place] [address] 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 Tobacco Use Types Packs/Day Years [...] and Family Not on file 03/05/2025 Attends Christian Services Not on file 03/05 Active Member [...] any time in the past 12 m [facility], were you homeless or living in a residential (including now)? No 03/05/2025 Utilities Answer Date [...] documented as of this encounter Care Teams Summer Babysitter Relationship Specialty Start Date End Date Dg Kang MD [facility] [address] [place] [id number] PCP - General 02/03/21 Amada Rose [facility]N [address] [facility] [address] [place] [address] Nurse Practitioner Neurosurgery 04/06/25 documented as of this encounter
--- OUTSIDE RECORDS SUMMARY | 2025-06-29 13:10 | XMS_ITS | Encounter Summary ---
Author Organization Healthcare Address [address] [place] [address] Care Team Providers Care Cork Tipper Name Role Phone Dg Kang MD Primary Care Provider Amada Rose CYLINDER PRESS OPERATOR Unavailable [phone] Encounter Details Date Type Department Care Team (Late st Contact Info) Description 05/07/2025 Orders Only External Location [address] [place] [address] Du Mcmahan MD [address] [place] [address] 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 Tobacco Use Types Packs/Day Years [...] and Family Not on file 03/05/2025 Attends Rastafarian Services Not on file 03/05 Active Member [...] any time in the past 12 m [facility], were you homeless or living [...] documented as of this encounter Care Teams Cork Tipper Relationship Specialty Start Date End Date gD Kang MD [facility] [address] [place] [id number] PCP - General 02/03/21 Amada Rose [facility]N [address] [facility] [address] [place] [address] Nurse Practitioner Neurosurgery 04/06/25 documented as of this encounter
--- OUTSIDE RECORDS SUMMARY | 2025-06-29 13:10 | XMS_ITS | Clinical Summary ---
Author Organization [facility] Address [address] [place] [address] Care Team Providers Care Fish And Wildlife Scientific Aid Name Role Phone Dg Kang MD Primary Care Provider [phone] Amada Rose APPLICATION INTEGRATION SPECIALIST Unavailable [phone] Allergies Active Allergy Reactions Criticality Noted Date [...] - Please have patient follow up at [facility] with Neurosurgery NANETTE in 4-6 weeks with AP/Lateral XR of the lumbar spine and AP/Lateral XR of the thoracic spine: [facility] Neuroscience [place] ([facility]) Clinic, [address], 1st floor, [facility]. [address] [place] [address] #[phone] HTN (hypertension) 03/03/2025 Overview (03/10/2025): Assessment & [...] Type Department Care Team Description 05/10/2025 Telephone [place] [facility] [address], [address] [place] [address] Amada Rose APRN HCN - Patient Message (Return call) 05/07/2025 10:06 AM EDT - 05/08/2025 8:50 PM EDT Hospital Encounter [facility] Emergency Department [address] [place] [address] Anjel Medina MD Buckingham, Bradley P, MD Bronner, Jonathan M, MD Carter, Craig T, DO Fall, initial encounter (Primary Dx); Closed fracture of eleventh thoracic vertebra, unspecified fracture morphology, initial encounter ([facility]) Discharge Disposition: Home or Self Care 05/07/2025 Travel 05/07/2025 Orders Only External Location [address] [place] [id number] Du Mcmahan MD 05/07/2025 Orders Only External Location [address] [place] [id number] Du Mcmahan MD 05/07/2025 Orders Only External Location [address] [place] [address] Du Mcmahan MD 05/07/2025 Orders Only External Location [address] [place] [address] Du Mcmahan MD 05/07/2025 Orders Only External Location [address] [place] [address] Du Mcmahan MD 04/08/2025 Telephone [facility] [address], [address] [place] [address] Amada Rose APRN HCN - Patient Message 04/06/2025 10:40 AM EDT [facility] [address], [address] [place] [address] Amada Rose APRN Closed fracture of eleventh thoracic vertebra with routine healing, unspecified fracture morphology, subsequent encounter (Primary Dx); Fall from standing, initial encounter 04/06/2025 10:03 AM EDT - 04/06/2025 11:59 PM EDT Hospital Encounter [facility] Radiology [address], [address] [place] [address] Closed fracture of eleventh thoracic vertebra with [...] and Family Not on file 03/05/2025 Attends Yazidi Services Not on file 03/05 Active Member [...] in the past 12 m [facility], were you homeless or [...] 1959 UKY-Zoster Vaccines (1 of 2) 1959 [id number] Vaccine (4 - season) 2025 08/23/2021, 11/16/2020, [...] ECG Atrial Rate 90 BPM MUSE ECG NE Interval 136 ms MUSE ECG QRSD Interval 70 ms MUSE ECG QT Interval 322 ms MUSE ECG QTC Interval 393 ms MUSE ECG P [place] 69 degrees MUSE ECG R [place] -42 degrees MUSE ECG T Wave [place] -47 degrees MUSE ECG Diagnosis Sinus rhythm [...] MUSE ECG Diagnosis Confirmed by Stevie Davison ([id number]) on 05/09/2025 9:43:28 AM MUSE ECG 05/08/2025 11:4 5 AM EDT 05/09/2025 9:43 AM EDT Result Sintia Rod MD ECG ORDERABLES Final Resu lt MUSE ECG * Gold Top (05/08/2025 11:26 AM EDT) Extra Hold for add-ons 05/08/2025 2:01 PM EDT [facility] Comment:Auto resulted. Blood Venous blood specimen / Unknown 05/08/2025 11:26 AM EDT 05/08/2025 11:45 AM EDT us Colten Rod MD LAB BLOOD ORDERABLES Final Result Performing Organization Address [facility] Co de Phone Number [facility] [address] [place] [address] * Lavender Top (05/08/2025 11:26 AM EDT) Extra Hold for add-ons 05/08/2025 2:01 PM EDT [facility] Comment:Auto resulted. Blood Venous blood specimen / Unknown 05/08/2025 11:26 AM EDT 05/08/2025 11:45 AM EDT us Colten Rod MD LAB BLOOD ORDERABLES Final Result Performing Organization Address City/[facility] [address]/ZIP Co de Phone Number [facility] [address] [place] [address] * Light Blue Top (05/08/2025 11:26 AM EDT) Extra Hold for add-ons 05/08/2025 2:01 PM EDT [facility] Comment:Auto resulted. Blood Venous blood specimen / Unknown 05/08/2025 11:26 AM EDT 05/08/2025 11:45 AM EDT us Colten Rod MD LAB BLOOD ORDERABLES Final Result [facility] [address] [place] [address] * (ABNORMAL) Basic Metabolic Panel, Plasma (05/08/2025 11:26 AM EDT) Glucose, Plasma 105(H) 74 - 99 mg/dL 05/08/2025 12:01 PM EDT [facility] BUN, Plasma 12 8 - 23 mg/dL 05/08/2025 12:01 PM EDT [facility] Creatinine, Plasma 0.82 0.60 - 1.10 mg/dL 05/08/2025 12:01 PM EDT [facility] BUN/Creatinine Ratio 15 05/08/2025 12:01 PM EDT [facility] Sodium, Plasma 137 136 - 145 mmol/L 05/08/2025 12:01 PM EDT [facility] Potassium, Plasma 3.7 3.6 - 4.9 mmol/L 05/08/2025 12:01 PM EDT [facility] Chloride, Plasma 103 97 - 107 mmol/L 05/08/2025 12:01 PM EDT [facility] CO2, Plasma 22 22 - 29 mmol/L 05/08/2025 12:01 PM EDT [facility] Anion Gap 12 6 - 16 mmol/L 05/08/2025 12:01 PM EDT [facility] Total Calcium, Plasma 9.0 8.9 - 10.2 mg/dL 05/08/2025 12:01 PM EDT [facility] eGFRcr 69.8 mL/min/1.7 3m*2 05/08/2025 12:01 PM EDT [facility] Comment:Reported eGFRcr in m L/min/1.73m2 is based the CKD-EPI 2020 equation that does not use a race coefficient. Blood Venous blood specimen / Unknown Venipuncture / Unknown 05/08/2025 11:26 AM EDT 05/08/2025 11:40 AM EDT Colten Rod MD LAB BLOOD ORDERABLES Final Result [facility] [address] [place] [address] * MR Lumbar Spine wo IV Contrast [...] Lawson on 05/07/2025 at 2145 hours by [employer]. Drafted by Bebe Burns MD on 05/07/2025 [...] spine CT performed 14 hours prior at [facility] Thoracic and lumbar spine MRI 03/03/2025 [...] is severe stenosis at right T1-2 and vejhqgrl-es-uiqsdc stenosis at several mid thoracic levels. Prevertebral [...] performed 14 hours prior at [facility] Thoracic and lumbar spine MRI 03/03/2025 FINDINGS: Thoracic Spine: Diagnostic Quality: Adequate. Alignment: The bony alignment is normal. Marrow, Vertebrae and Intervertebral Discs: Linear T2 hyperintensity inthe anterior-inferior corner of the T11 vertebral body is consistent withfracture, confirmed on recent outside CT scan. Vertebral body heights arenormal. Multilevel disc desiccation and decreased disc heights. Avid Y0yznbokdiusdwyr within the T11-12 and T12-L1 disc spaces [...] narrowing issevere stenosis at right T1-2 and macpaleq-ia-aludaw stenosis at severalmid thoracic levels. Prevertebral and [...] Ja Lawson on 05/07/2025 at 2145 hours [employer]. Drafted by Bebe Burns MD on 05/07/2025 [...] Lawson on 05/07/2025 at 2145 hours by [employer]. Drafted by Bebe Burns MD on 05/07/2025 [...] spine CT performed 14 hours prior at [facility] Thoracic and lumbar spine MRI 03/03/2025 [...] is severe stenosis at right T1-2 and xeblblbm-jc-xmhggl stenosis at several mid thoracic levels. Prevertebral [...] performed 14 hours prior at [facility] Thoracic and lumbar spine MRI 03/03/2025 FINDINGS: Thoracic Spine: Diagnostic Quality: Adequate. Alignment: The bony alignment is normal. Marrow, Vertebrae and Intervertebral Discs: Linear T2 hyperintensity inthe anterior-inferior corner of the T11 vertebral body is consistent withfracture, confirmed on recent outside CT scan. Vertebral body heights arenormal. Multilevel disc desiccation and decreased disc heights. Avid S4qphgmktmvwwvhv within the T11-12 and T12-L1 disc spaces [...] narrowing issevere stenosis at right T1-2 and nvyuzhad-jr-odlzux stenosis at severalmid thoracic levels. Prevertebral and [...] No metallic density noted in the visualized zwvrs-yx-bbne. ABDOMEN: Nonobstructive bowel gas pattern. L2-S1 posterior spinal fusion hardware. Otherwise, no metallic density noted in the visualized zhhwm-ki-aqur. CRITICAL RESULT: No. COMMUNICATION: Per this written [...] effusion. No metallic density noted in the ephzibrfmkvdnjc-bv-dpcu. ABDOMEN: Nonobstructive bowel gas pattern. L2-S1 posterior spinal fusion hardware. Otherwise, no metallic densitynoted in the visualized gbvjb-mf-ozxr. CRITICAL RESULT: No. COMMUNICATION: Per this written [...] No metallic density noted in the visualized pxjfs-mu-flgf. ABDOMEN: Nonobstructive bowel gas pattern. L2-S1 posterior spinal fusion hardware. Otherwise, no metallic density noted in the visualized csnow-jk-eljv. CRITICAL RESULT: No. COMMUNICATION: Per this written [...] effusion. No metallic density noted in the jbwojdbudkslrvh-hc-zkeu. ABDOMEN: Nonobstructive bowel gas pattern. L2-S1 posterior spinal fusion hardware. Otherwise, no metallic densitynoted in the visualized fmnax-qd-xppq. CRITICAL RESULT: No. COMMUNICATION: Per this written [...] MD on 04/06/2025 11:13 AM Amada Rose APPLICATION INTEGRATION SPECIALIST IMG XR PROCEDURES Final Resu lt [...] MD on 04/06/2025 11:13 AM Amada Rose APPLICATION INTEGRATION SPECIALIST IMG XR PROCEDURES Final Resu lt from Last 3 Months Insurance [employer] MEDIC[place] Member Subscriber Plan / Payer (Ef fective 2025-Present) Name:Kelley Hua Relation to Subscriber:Self Name:Kelley Hua Payer ID:Not on file Group ID:Not on file Type:Medicaid Address: [facility] [address] [place] [id number] Advance Directives * Full Code (Latest Code [...] updated to appropriate status: Yes Care Teams Fish And Wildlife Scientific Aid Relationship Specialty Start Date End Date Dg Kang MD [facility] [address] [place] [address] PCP - General 02/03/21 Amada Rose APRN [id number] [place] [address] Nurse Practitioner Neurosurgery 04/06/25
--- OUTSIDE RECORDS SUMMARY | 2025-06-29 13:10 | XMS_ITS | Encounter Summary ---
Author Organization Healthcare Address [address] [place] [address] Care Team Providers Care District Superintendent Name Role Phone Dg Kang MD Primary Care Provider [phone] Amada Rose NURSE ASSESSOR Unavailable [phone] Reason for Visit * Reason Onset Date Comments HCN - Patient Message 05/10/2025 Return daniela l Encounter Details Date Type Department Care Team (Late st Contact Info) Description 05/10/2025 Telephone [facility] [address], [address] [place] [address] Amada Rose, NURSE ASSESSOR [address] [place] [address] HCN - Patient Message (Return [...] and Family Not on file 03/05/2025 Attends Scientology Services Not on file 03/05 Active Member [...] in the past 12 m [facility], were you homeless or living in a jail (including now)? No 03/05/2025 Utilities Answer Date [...] Miscellaneous Notes * Telephone Encounter - Jesse Hanyes - 05/10/2025 4:49 PM EDT 05/10/2025 - [...] of day to reach caller: Please call [phone] Note: Please do not reply to this message. Follow-up communication and further actions as a result of this message need to be communicated with the patient directly, if the patient is not active onMyChart. If the patient is active on MyChart, they will receive notification of the communication/outcome via [employer]. documented in this encounter Plan of Treatment Not on file documented as of this encounter Visit Diagnoses Not on filedocumented in this encounter Additional Health Concerns Assessment Noted Time A Body Mass Index follow-up plan has been documented for the patient 04/06/2025 12:14 PM EDT documented as of this encounter Care Teams District Superintendent Relationship Specialty Start Date End Date Dg Kang MD [facility] [place] [address] PCP - General 02/03/21 Amada Rose APRN [address] [facility] [address] [place] [address] Nurse Practitioner Neurosurgery 04/06/25 documented as of this encounter
--- OUTSIDE RECORDS SUMMARY | 2025-06-29 13:10 | XMS_ITS | Encounter Summary ---
Author Organization Healthcare Address [address] [place] [address] Care Team Providers Care Manager Laboratory Name Role Phone Dg Kang MD Primary Care Provider [phone] Amada Rose DIETETICS DIRECTOR Unavailable [phone] Encounter Details Date Type Department Care Team (Late st Contact Info) Description 05/07/2025 Orders Only External Location [address] [place] [address] Du Mcmahan MD [address] [place] [address] [place] [address] 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 Tobacco Use Types Packs/Day Years [...] and Family Not on file 03/05/2025 Attends Evangelical Services Not on file 03/05 Active Member [...] in the past 12 m [facility], were you homeless or living [...] documented as of this encounter Care Teams Manager Laboratory Relationship Specialty Start Date End Date Dg Kang MD [facility] [address] [place] [id number] PCP - General 02/03/21 Amada Rose [facility]N [address] [facility] [address] [place] [address] Nurse Practitioner Neurosurgery 04/06/25 documented as of this encounter
--- OUTSIDE RECORDS SUMMARY | 2025-06-29 13:10 | XMS_ITS | Encounter Summary ---
Author Organization Healthcare Address [address] [place] [address] Care Team Providers Care Dual Rate Supervisor Name Role Phone Dg Kang MD Primary Care Provider [phone] Amada Rose FLOOR TECHNICIAN Unavailable [phone] Encounter Details Date Type Department Care Team (Late st Contact Info) Description 05/07/2025 Orders Only External Location [address] [place] [address] Du Mcmahan MD [address] [place] [address] [place] [address] 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 Tobacco Use Types Packs/Day Years [...] any time in the past 12 m [facility], were you homeless or living [...] documented as of this encounter Care Teams Dual Rate Supervisor Relationship Specialty Start Date End Date Dg Kang MD [facility] [address] [place] [id number] PCP - General 02/03/21 Amada Rose APRN [address] [facility] [address] [place] [address] Nurse Practitioner Neurosurgery 04/06/25 documented as of this encounter
--- OUTSIDE RECORDS SUMMARY | 2025-06-29 13:10 | XMS_ITS | Encounter Summary ---
Author Organization Healthcare Address [address] [place] [address] Care Team Providers Care Talent Analyst Name Role Phone Dg Kang MD Primary Care Provider [phone] Amada Rose VIGOUREUX PRINTER Unavailable [phone] Encounter Details Date Type Department Care Team [...] and Family Not on file 03/05/2025 Attends Hinduism Services Not on file 03/05 Active Member [...] were you homeless or living in a chcf (including now)? No 03/05/2025 Utilities Answer Date [...] documented as of this encounter Care Teams Talent Analyst Relationship Specialty Start Date End Date Dg Kang MD [facility] [place] [address] PCP - General 02/03/21 Amada Rose APRN [address] [address] Nurse Practitioner Neurosurgery 04/06/25 documented as of this encounter
[2025-06-29 13:17] LABS: Alanine Aminotransferase 13 U/L (12-78); Albumin Level 3.5 g/dl (3.5-5.0); Albumin/Globulin Ratio 1.3 (1.1-1.8); Alkaline Phosphatase 142 U/L (38-126); Anion Gap 10.7 mEq/L (5-15); Aspartate Amino Transferase 28 U/L (14-36); Bilirubin,Total 0.4 mg/dl (0.2-1.3); Blood Urea Nitrogen 14 mg/dl (7-17); Calcium 9.4 mg/dl (8.4-10.2); Carbon Dioxide 31 mmol/L (22.0-30.0); Chloride 99 mmol/L (98-107); Cholesterol 136 mg/dl (140-200); Creatinine Clearance Estimated 52 mL/min (50-200); Creatinine,Serum 0.80 mg/dl (0.52-1.04); Estimated Glomerular Filt Rate 68 ml/min (>60); GFR (African American) 82 ML/MIN (>60); Globulin 2.7 g/dL (1.3-3.2); Glucose 111 mg/dl (74-100); HDL Cholesterol 34 mg/dl (40-60); Potassium 3.7 mmoL/L (3.5-5.1); Sodium 137 mmol/L (136-145); Total Protein,Serum 6.2 g/dl (6.3-8.2); Triglycerides 201 mg/dl (30-150)
[2025-06-29 13:18] LABS: Activated Partial Thrombo Time 26.7 seconds (22.8-30.6); INR 1.00 (0.9-1.1); Prothrombin Time 11.1 seconds (10.1-12.5)
--- NOTE | 2025-06-29 13:22 | XR_ITS ---
FINAL REPORT CLINICAL HISTORY: Encephalopathy COMPARISON: 05/09/2020 FINDINGS: A portable view of the chest was obtained. Cardiac and mediastinal silhouettes are within normal limits. There are low lung volumes with bibasilar atelectasis. There is no pleural effusion or pneumothorax. IMPRESSION: Bibasilar atelectasis. Reviewed, Interpreted and Dictated by Kailey Avitia MD Transcribed by Nohelia Marmolejo Authenticated and . [facility]
--- NOTE | 2025-06-29 13:25 | ECG_ITS ---
APPROVED REPORT Exam: Resting ECG HR:80 bpm ECG Measurements Heart Rate 80 AXES CA 171 P 55 QRSd 85 QRS -15 QT 383 T 64 QTc 419 Conclusion Difficult to interpret secondary to baseline artifact Likely normal sinus rhythm Left axis Electronically signed by : Dann Diaz, 06/29/2025 17:04:51
--- NOTE | 2025-06-29 13:28 | PC.NURSE ---
CT head/neck images sent via [employer] [facility] to [employer] per MD request.
[2025-06-29 13:29] LABS: Troponin I < 0.01 ng/ml (0.00-0.034)
[2025-06-29 13:36] LABS: Microscopic, Urine URINE MICROSCOPIC (MICROSCOPIC)
[2025-06-29 14:10] LABS: Bilirubin,Urine Negative (Negative); Color,Urine YELLOW (Yellow); Glucose,Urine (UA) Negative (Negative); Ketones,Urine Negative (Negative); Leukocyte Esterase,Urine 1+ (Negative); PH,Urine 6.0 (5.0-8.5); Protein,Urine Negative (Negative); Specific Gravity, Urine 1.015 (1.005-1.030); Urobilinogen,Urine 0.2 EU/dl (0.2)
[2025-06-29 14:19] LABS: Bacteria,Urine 4+ /lpf
[2025-06-29 14:24] LABS: Opiate Screen,Urine Negative ng/ml (<300)
[2025-06-29 14:25] LABS: Phencyclidine Screen,Urine Negative ng/ml (<25)
[2025-06-29 14:27] LABS: Methadone Screen,Urine Negative ng/ml (<300)
[2025-06-29 14:58] LABS: Amphetamine/Metha Screen,Urine Negative ng/ml (<1000); Barbiturates Screen,Urine Positive ng/ml (<200); Benzodiazepines Screen,Urine Negative ng/ml (<200)
--- NOTE | 2025-06-29 15:28 | PC.NURSE ---
supervisor motor vehicle assembly contacted regarding bed
--- NOTE | 2025-06-29 15:48 | PC.NURSE ---
report given chantel [id number]
--- NOTE | 2025-06-29 16:06 | PC.NURSE ---
arrived by stretcher from ED
--- NOTE | 2025-06-29 16:15 | P.HP_ITS ---
<Statement entered by Hugo Ferrari MD - 07/02/25 11:59> Agree with plan of care as outlined by the DATA WAREHOUSING ENGINEER. History of Present Illness *Admission Date: 06/29/25 *Reason for visit:: Weakness *History of present illness: Ms. Hua is a 85-year-old female who presented to the emergency department today via EMS with stroke-like symptoms. Patient does have a primary medical history of TIAs, frequent falls, dementia, Alzheimer's, vertebral fractures, osteoarthritis, DJD, hypertension, hyperlipidemia, GERD. Patient resides at [facility] where facility workers felt that she had a sudden change in her mentation. They stated she became limp, weak, and suddenly altered around 12:30 PM. EMS was called and she was brought to the emergency department for further assessment. Patient arousable to name but appears weak and somnolent. Daughter at bedside answers the majority of questions. Patient recently had a fall approximately 2 months ago and was placed in the half-way at that time. She has not been able to ambulate since that time due to her back injury. The emergency department workup was negative for obvious stroke. Head CT, neck CT both showed no acute findings. Chest x-ray showed bilateral bibasilar atelectasis. Patient's daughter at bedside states that she recently did have pneumonia and took a week course of Levaquin daily. Urinalysis was significant for urinary tract infection with positive nitrites and leuk esterase. Patient received Rocephin 2 g IV in the emergency department. [facility] Disclaimer: The information contained in this section may have been updated after the patient was seen, as this information can be updated by other users. 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 , DATA WAREHOUSING ENGINEER) Smoking Status: Never smoker alcohol intake: never substance use type: denies use current occupational status: other Travel in the last 8 weeks?: None household members: none housing: house current occupational exposures/hazards: No caffeine: No Have you lived/traveled outside [place] in past 30 days?: No Contact w/someone who lives/traveled outside [place] past 30 days?: No Exposure to someone with infectious disease in past 14 days?: No Do you have a fever (greater than 100.4 F or 38 C)?: No Have you tested positive for COVID-19?: No Exposed to someone with COVID-19 in past 14 days?: No Do you have a sore throat?: No Do you have a cough?: No Do you have any weakness?: No Do you have any diarrhea?: No Are you experiencing any unusual bleeding?: No Do you have any muscle aches/pain?: No Do you have any abdominal pain?: No Are you experiencing loss of taste or smell?: No Other Medical History Have you received the Flu Vaccine for this season: Yes Have you received the Pneumonia Vaccine: Yes Review of Systems Constitutional Constitutional: Reports fatigue, Denies fever(s), Reports frequent falls, Reports headache(s), Reports poor appetite, Reports lethargy and Reports weakness Eyes Eyes: Denies loss of vision ENT Ears, Nose, Mouth, and Throat: Denies dizziness and Reports headache(s) *Cardiovascular Cardiovascular: Denies chest pain, Denies dyspnea and Denies rapid heart rate *Respiratory Respiratory: Denies chest congestion, Reports cough and Denies dyspnea *Gastrointestinal Gastrointestinal: Denies abdominal pain, Denies loose stools, Denies nausea and Denies vomiting *Genitourinary Genitourinary: Denies difficulty voiding and Denies dysuria *Musculoskeletal Musculoskeletal: Reports back pain *Neurologic Neurologic: Denies confusion, Denies dizziness, Reports frequent falls, Reports headache(s), Denies loss of vision and Reports weakness Psychiatric Psychiatric: Denies confusion Endocrine Endocrine: Reports fatigue Meds Home Medications and Allergies Home Medications ?Medication ?Instructions ?Recorded ?Confirmed ?Type diclofenac sodium 1 % topical gel 4 g topical QID PRN Arthritis pain 04/29/24 04/29/25 Rx of knee #100 grams levalbuterol HCl 1.25 mg/3 mL See Rx Instructions .Rou te 09/25/24 04/29/25 Rx solution for nebulization .COMPLEX #270 mL gabapentin 300 mg capsule 600 mg (2 x 300 mg) PO HS #6 0 caps 03/04/25 04/29/25 Rx memantine 10 mg tablet (Namenda) 10 mg PO BID #60 tabs 03/04/25 04/29/25 Rx losartan 100 mg tablet See Rx Instructions .Route 0 04/01/25 04/29/25 Rx .COMPLEX #90 tabs primidone 250 mg tablet See Rx Instructions .Route 0 04/01/25 04/29/25 Rx .COMPLEX #90 tabs simvastatin 20 mg tablet See Rx Instructions .Route 0 04/01/25 04/29/25 Rx .COMPLEX #90 tabs lactulose 10 gram/15 mL oral 20 g (30 mL) PO BID PRN 0 04/29/25 04/29/25 Rx solution constipation #3,785 mL pantoprazole 40 mg tablet,delayed See Rx Instructions .Route 05/06/25 Rx release .COMPLEX #90 tabs propranolol 60 mg tablet See Rx Instructions .Route 0 05/06/25 Rx .COMPLEX #120 tabs New Prescriptions to Start Prescriptions: Allergies Allergy/AdvReac Type Severity Reaction Status Date / Time glucosamine Allergy Unknown BOWELS Verified 04/29/25 11:01 BLEEDING Sulfa (Sulfonamide Allergy Unknown Verified 04/29/25 11:01 Antibiotics) donepezil Allergy Verified 04/29/25 11:01 Penicillins Allergy Verified 04/29/25 11:01 sulfamethoxazole AdvReac Verified 04/29/25 11:01 Exam Data for Last 24 hours Vital signs and Labs for Last 24 Hours: Temp Pulse Resp BP Pulse Ox O2 Del Method 97.6 F 80 18 147/87 H 95 Room Air 06/29/25 15:49 06/29/25 15:49 06/29/25 15:49 06/29/25 15:49 06/29/25 14:30 06/29/25 15:49 Laboratory Results - last 24 hr 06/29/25 12:55: WBC 12.7 H, RBC 4.05 L, Hgb 12.0 L, Hct 36.5 L, MCV 90.1, MCH 29.6, MCHC 32.9, RDW 13.4, Plt Count 325, MPV 9.2, Neut % (Auto) 79.7, Lymph % (Auto) 9.2 L, [place] % (Auto) 5.6, Eos % (Auto) 3.6, Baso % (Auto) 1.3, Neut # (Auto) 10.1 H, Lymph # (Auto) 1.2, [place] # (Auto) 0.7, Eos # (Auto) 0.5 H, Baso # (Auto) 0.2, PT 11.1, INR 1.00, APTT 26.7, Sodium 137, Potassium 3.7, Chloride 99, Carbon Dioxide 31 H, Anion Gap 10.7, BUN 14, Creatinine 0.80, Estimated Creat Clear 52, Estimated GFR 68, Est GFR ( Amer) 82, Glucose 111 H, Calcium 9.4, Total Bilirubin 0.4, AST 28, ALT 13, Alkaline Phosphatase 142 H, Troponin I < 0.01, Total Protein 6.2 L, Albumin 3.5, Globulin 2.7, Albumin/Globulin Ratio 1.3, Triglycerides 201 H, Cholesterol 136 L, LDL Cholesterol Direct 55.80 L, VLDL Cholesterol 40, HDL Cholesterol 34 L, Cholest veronika/HDL Ratio 4.0 H, Plasma/Serum Alcohol < 10 06/29/25 13:20: Urine Color Yellow, Urine Appearance Clear, Urine pH 6.0, Ur Specific [place] 1.015, Urine Protein Negative, Urine Glucose (UA) Negative, Urine Ketones Negative, Urine Blood Negative, Urine Nitrate Positive A, Urine Bilirubin Negative, Urine Urobilinogen 0.2, Ur Leukocyte Esterase 1+ A, Urine RBC None, Urine WBC 3-5, Ur Squamous Epith Cells 3-5, Urine Bacteria 4+ 06/29/25 13:31: Urine Opiates Screen Negative, Urine Methadone Screen Negative, Ur Barbituates Screen Positive H, Ur Phencyclidine Scrn Negative, Ur Amphetamines Screen Negative, U Benzodiazepines Scrn Negative, Urine Cocaine Screen Negative, U Marijuana (THC) Screen Negative I & O for Last 24 hours: Intake & Output 06/26/25 06/27/25 06/28/25 06/29/25 23:59 23:59 23:59 23:59 Weight 81.647 kg Constitutional Constitutional: no acute distress, average body habitus and somnolent *Routine HEENT Exam Head: Present normocephalic Eye: Present EOMI ENT: Present mucous membranes moist *Routine Neck Exam Neck: Present supple *Routine Respiratory Exam Respiratory: Present prolonged expiratory phase, wheezes (Bilateral expiratory) and normal respiratory effort; Absent crackles *Routine Cardiovascular Exam Cardiovascular: Present RRR; Absent murmur *Routine Abdominal Exam Abdominal: Present soft and normoactive bowel sounds; Absent tenderness or distended *Routine Rectal Exam Rectal:: deferred *Routine Genitalia Exam Genitalia:: deferred *Routine Extremities Exam Extremities: Present full ROM and pulses intact; Absent edema *Routine Skin Exam Skin: Present intact and dry; Absent erythema or rash *Routine Neurological Exam Neurological: Present oriented X3 Assessment and Plan *Assessment and plan (1) Urinary tract infection: Status: Acute Category: Medical Code(s): N39.0 - Urinary tract infection, site not specified (2) Generalized weakness: Status: Acute Category: Medical Code(s): R53.1 - Weakness (3) Falls frequently: Status: Acute Category: Medical Code(s): R29.6 - Repeated falls (4) Hypertension: Status: Chronic Category: Medical Code(s): I10 - Essential (primary) hypertension (5) Hyperlipidemia: Status: Chronic Category: Medical Code(s): E78.5 - Hyperlipidemia, unspecified (6) Dementia: Status: Acute Category: Medical Code(s): F03.90 - Unspecified dementia, unspecified severity, without behavioral disturbance, psychotic disturbance, mood disturbance, and anxiety (7) GERD (gastroesophageal reflux disease): Status: Chronic Category: Medical Code(s): K21.9 - Gastro-esophageal reflux disease without esophagitis Plan Ms. Hua is a 85-year-old female who presented to the emergency department today via EMS with stroke-like symptoms. Patient resides at [facility] re[facility] where facility workers felt that she had a sudden change in her mentation. They stated she became limp, weak, and suddenly altered around 12:30 PM. EMS was called and she was brought to the emergency department for further assessment. Patient arousable to name but appears weak and somnolent. Daughter at bedside answers the majority of questions. Patient recently had a fall approximately 2 months ago and was placed in the half-way at that time. She has not been able to ambulate since that time due to her back injury. The emergency department workup was negative for obvious stroke. Head CT, neck CT both showed no acute findings. Chest x-ray showed bilateral bibasilar atelectasis. Patient's daughter at bedside states that she recently did have pneumonia and took a week course of Levaquin daily. Urinalysis was significant for urinary tract infection with positive nitrites and leuk esterase. Patient received Rocephin 2 g IV in the emergency department. Hospital medicine was then consulted by the emergency department for possible admission due to gen eralized weakness and UTI. I agreed to admit the patient to my service, plan of care as follows: #Generalized weakness #Urinary tract infection #Frequent falls ? Patient's urinalysis shows positive nitrite and 1+ leuk esterase. Urine culture pending. Patient was started on ceftriaxone 2 g IV in the ED. Will continue every 24 hour. ? Patient continues to be very weak. Will have PT/OT evaluate. Daughter at bedside states this is below her baseline, that she is normally alert and oriented and interactive. ? Patient chest x-ray shows bibasilar atelectasis/low lung volumes. Incentive spirometer ordered, DuoNeb every 6 hour scheduled. ? Blood cultures are pending. CBC, CMP, magnesium ordered for the a.m. #Hypertension #Hyperlipidemia ? Will restart patient's home medication when reconciled #GERD ? Continue pantoprazole 40 mg daily. #Dementia ? Continue patient's home medications when reconciled Full code Up with assistance Cardiac diet VTE?Lovenox 40 mg subcu daily
[2025-06-29 17:05] LABS: Troponin I < 0.01 ng/ml (0.00-0.034)
[2025-06-29 17:27] LABS: Magnesium 1.7 mg/dl (1.6-2.3)
[2025-06-29 20:21] LABS: Troponin I < 0.01 ng/ml (0.00-0.034)
[2025-06-30] VITALS: BP 152/85; PULSE 99; RESP 16; TEMP 36.9; O2SAT 96
--- NOTE | 2025-06-30 03:46 | PC.NURSE ---
Pt is alert and oriented X2. Cardiac Diet. Pt has the electrolyte protocol. Pt has Lovenox for VTE. Pt gets around in a wheelchair. Legs are extremely weak. Pt had a BM 06/29/2025. bed alarm is on. BRITTNY CUENCA RN
[2025-06-30 04:00] VITALS: BP 156/73; PULSE 100; PULSE 97; RESP 16; TEMP 37.1; O2SAT 93; BMI 23.8
[2025-06-30 06:57] LABS: Hematocrit 32.7 % (37.0-47.0); Hemoglobin 11.0 g/dL (12.2-16.2); Immature Granulocytes % 0.4 %; Mean Corpuscular HGB Conc 33.6 g/dL (31.8-35.4); Mean Corpuscular Hemoglobin 29.6 pg (27.0-31.2); Mean Corpuscular Volume 88.1 fl (81-99); Nucleated Red Blood Cells % 0 %; Platelet Count 331 K/mm3 (142-424); Red Blood Count 3.71 M/mm3 (4.20-5.40); Red Cell Distribution Width-SD 41.9 fL; White Blood Count 12.1 K/mm3 (4.8-10.8)
[2025-06-30 06:58] LABS: Chloride 101 mmol/L (98-107)
[2025-06-30 06:59] LABS: Albumin Level 3.1 g/dl (3.5-5.0); Potassium 3.3 mmoL/L (3.5-5.1); Sodium 137 mmol/L (136-145)
[2025-06-30 07:01] LABS: Alanine Aminotransferase 14 U/L (12-78); Aspartate Amino Transferase 23 U/L (14-36)
[2025-06-30 07:02] LABS: Albumin/Globulin Ratio 1.1 (1.1-1.8); Alkaline Phosphatase 136 U/L (38-126); Anion Gap 10.3 mEq/L (5-15); Calcium 8.6 mg/dl (8.4-10.2); Carbon Dioxide 29 mmol/L (22.0-30.0); Globulin 2.7 g/dL (1.3-3.2); Glucose 79 mg/dl (74-100); Magnesium 1.7 mg/dl (1.6-2.3); Total Protein,Serum 5.8 g/dl (6.3-8.2)
[2025-06-30 07:07] LABS: Bilirubin,Total < 0.1 mg/dl (0.2-1.3)
[2025-06-30 08:00] VITALS: BP 158/86; PULSE 100; PULSE 98; RESP 16; TEMP 37; O2SAT 97
--- NOTE | 2025-06-30 09:03 | SW/DCPLANNER ---
Addendum entered by Radha Lozada 06/30/25 10:54: I have updated Madina w/ [facility] that patient will return today I[facility] level of care. Original Note: Patient currently resides at [facility] I[facility] level of care per Madina. Discharge date is unknown at this time. CM will continue to follow up.
--- NOTE | 2025-06-30 09:29 | P.CONPHA_ITS ---
Pharmacy Intervention Comments: MEDICATION RECONCILIATION COMPLETED ON PATIENT USING MAR FROM ALF. -MACK GIANG, LEONIDASD
--- NOTE | 2025-06-30 09:29 | HMH.PHAINT1 ---
Pharmacy Intervention Comments: MEDICATION RECONCILIATION COMPLETED ON PATIENT USING MAR FROM CUSTODIAL. -MACK GIANG, LEONIDASD
--- NOTE | 2025-06-30 09:58 | EXP.DC.SUM ---
General Admission date:: 06/29/25 Discharge date: 06/30/25 HPI HPI HPI: Ms. Hua is a 85-year-old female who presented to the emergency department today via EMS with stroke-like symptoms. Patient does have a primary medical history of TIAs, frequent falls, dementia, Alzheimer's, vertebral fractures, osteoarthritis, DJD, hypertension, hyperlipidemia, GERD. Patient resides at [facility] where facility workers felt that she had a sudden change in her mentation. They stated she became limp, weak, and suddenly altered around 12:30 PM. EMS was called and she was brought to the emergency department for further assessment. Patient arousable to name but appears weak and somnolent. Daughter at bedside answers the majority of questions. Patient recently had a fall approximately 2 months ago and was placed in the care home at that time. She has not been able to ambulate since that time due to her back injury. The emergency department workup was negative for obvious stroke. Head CT, neck CT both showed no acute findings. Chest x-ray showed bilateral bibasilar atelectasis. Patient's daughter at bedside states that she recently did have pneumonia and took a week course of Levaquin daily. Urinalysis was significant for urinary tract infection with positive nitrites and leuk esterase. Patient received Rocephin 2 g IV in the emergency department. Hospital Course Hospital Course Hospital Course: Ms. Hua is a 85-year-old female who presented to the emergency department via EMS with stroke-like symptoms. Patient resides at [facility] where facility workers felt that she had a sudden change in her mentation. They stated she became limp, weak, and suddenly altered around 12:30 PM. EMS was called and she was brought to the emergency department for further assessment. Patient arousable to name but appeared weak and somnolent. Daughter at bedside answers the majority of questions. Patient recently had a fall approximately 2 months ago and was placed in the care home at that time. She has not been able to ambulate since that time due to her back injury. The emergency department workup was negative for obvious stroke. Head CT, neck CT both showed no acute findings. Chest x-ray showed bibasilar atelectasis. Patient's daughter at bedside states that she recently did have pneumonia and took a week course of Levaquin daily. Urinalysis was significant for urinary tract infection with positive nitrites and leuk esterase. Patient received Rocephin 2 g IV in the emergency department. Hospital medicine was then consulted by the emergency department for possible admission due to generalized weakness and UTI. I agreed to admit the patient to my service, plan of care was as follows: #Generalized weakness #Urinary tract infection #Frequent falls #Acute encephalopathy, resolved ? Patient's urinalysis shows positive nitrite and 1+ leuk esterase. Culture growing gram-negative rods. Patient was started on ceftriaxone 2 g IV in the ED, she received 2 total doses prior to discharge, will discharge with 5 days of cefdinir 300 mg twice daily. This will complete a total antibiotic course of 7 days. Blood cultures pending. Will continue to monitor for urine sensitivity. ? On admission patient appeared very weak and somnolent. Patient appears back to baseline today. Able to answer questions appropriately. Alert and oriented x 1 (baseline). Pleasant. PT/OT evaluation states patient is acceptable to return to prior living situation when medically stable ([facility]). Spoke with assisted-living staff, they state patient is periodically confused at baseline, no safety awareness, fall risk, tries to transfer self regularly. ? Patient chest x-ray shows bibasilar atelectasis/low lung volumes. Incentive spirometer ordered. Patient should continue incentive spirometer use at nursing facility. Lungs CTA discharge. Continue inhaler every 8 hours as needed for shortness of breath at discharge. ? Lab work unremarkable with the exception of potassium slightly low, 3.3. Replace per protocol. #Hypertension #Hyperlipidemia ? Continue propranolol 60 mg twice daily, losartan 100 mg daily, atorvastatin 10 mg at bedtime, aspirin 81 mg daily at discharge. #GERD ? Continue omeprazole 20 mg at bedtime. #Dementia ? Continue primidone 250 mg at bedtime, citalopram 10 mg daily, memantine 10 mg twice daily. Total time spent on discharge 32 minutes in counseling, documentation, chart review, and direct care with patient. Exam Data for Last 24 hours Vital signs and Labs for Last 24 Hours: Temp Pulse Resp BP Pulse Ox O2 Del Method 98.6 F 98 H 16 158/86 H 97 Room Air 06/30/25 08:00 06/30/25 08:00 06/30/25 08:00 06/30/25 08:00 06/30/25 08:00 06/30/25 08:00 Laboratory Results - last 24 hr 06/29/25 12:55: WBC 12.7 H, RBC 4.05 L, Hgb 12.0 L, Hct 36.5 L, MCV 90.1, MCH 29.6, MCHC 32.9, RDW 13.4, Plt Count 325, MPV 9.2, Neut % (Auto) 79.7, Lymph % (Auto) 9.2 L, [place] % (Auto) 5.6, Eos % (Auto) 3.6, Baso % (Auto) 1.3, Neut # (Auto) 10.1 H, Lymph # (Auto) 1.2, [place] # (Auto) 0.7, Eos # (Auto) 0.5 H, Baso # (Auto) 0.2, PT 11.1, INR 1.00, APTT 26.7, Sodium 137, Potassium 3.7, Chloride 99, Carbon Dioxide 31 H, Anion Gap 10.7, BUN 14, Creatinine 0.80, Estimated Creat Clear 52, Estimated GFR 68, Est GFR ( Amer) 82, Glucose 111 H, Calcium 9.4, Total Bilirubin 0.4, AST 28, ALT 13, Alkaline Phosphatase 142 H, Troponin I < 0.01, Total Protein 6.2 L, Albumin 3.5, Globulin 2.7, Albumin/Globulin Ratio 1.3, Triglycerides 201 H, Cholesterol 136 L, LDL Cholesterol Direct 55.80 L, VLDL Cholesterol 40, HDL Cholesterol 34 L, Cholesterol/HDL Ratio 4.0 H, Plasma/Serum Alcohol < 10 06/29/25 13:20: Urine Color Yellow, Urine Appearance Clear, Urine pH 6.0, Ur Specific [place] 1.015, Urine Protein Negative, Urine Glucose (UA) Negative, Urine Ketones Negative, Urine Blood Negative, Urine Nitrate Positive A, Urine Bilirubin Negative, Urine Urobilinogen 0.2, Ur Leukocyte Esterase 1+ A, Urine RBC None, Urine WBC 3-5, Ur Squamous Epith Cells 3-5, Urine Bacteria 4+ 06/29/25 13:31: Urine Opiates Screen Negative, Urine Methadone Screen Negative, Ur Barbituates Screen Positive H, Ur Phencyclidine Scrn Negative, Ur Amphetamines Screen Negative, U Benzodiazepines Scrn Negative, Urine Cocaine Screen Negative, U Marijuana (THC) Screen Negative 06/29/25 16:30: Magnesium 1.7, Troponin I < 0.01 06/29/25 19:37: Troponin I < 0.01 06/30/25 06:28: WBC 12.1 H, RBC 3.71 L, Hgb 11.0 L, Hct 32.7 L, MCV 88.1, MCH 29.6, MCHC 33.6, RDW 13.2, Plt Count 331, MPV 9.3, Neut % (Auto) 78.8, Lymph % (Auto) 10.4, [place] % (Auto) 6.0, Eos % (Auto) 2.9, Baso % (Auto) 1.5, Neut # (Auto) 9.5 H, Lymph # (Auto) 1.3, [place] # (Auto) 0.7, Eos # (Auto) 0.4, Baso # (Auto) 0.2, Sodium 137, Potassium 3.3 L, Chloride 101, Carbon Dioxide 29, Anion Gap 10.3, Glucose 79 D, Calcium 8.6, Magnesium 1.7, Total Bilirubin < 0.1 L, AST 23, ALT 14, Alkaline Phosphatase 136 H, Total Protein 5.8 L, Albumin 3.1 L D, Globulin 2.7, Albumin/Globulin Ratio 1.1 I & O for Last 24 hours: Intake & Output 06/27/25 06/28/25 06/29/25 06/30/25 23:59 23:59 23:59 23:59 Intake Total 360 / 480 120 / 120 Output Total 0 / 0 450 / 450 Balance 360 / 480 -330 / -330 Weight 66.043 kg 67.449 kg Microbiology Reports for the Last 24 Hours: Microbiology 06/29/25 13:20 Urine,Catheterized Urine Culture - Preliminary Gram Negative Rods Constitutional Constitutional: no acute distress, average body habitus, chronically ill appearing and cooperative *Routine HEENT Exam Head: Present normocephalic Eye: Present EOMI ENT: Present mucous membranes moist *Routine Neck Exam Neck: Present supple *Routine Respiratory Exam Respiratory: Present CTA bilaterally, able to speak in complete sentences and symmetric chest movement; Absent wheezes or crackles *Routine Cardiovascular Exam Cardiovascular: Present RRR, Normal S1 and Normal S2; Absent murmur *Routine Abdominal Exam Abdominal: Present soft and normoactive bowel sounds; Absent tenderness or distended *Routine Extremities Exam Extremities: Present pulses intact; Absent clubbing or edema *Routine Skin Exam Skin: Present intact and dry; Absent rash *Routine Neurological Exam Neurological: Present alert Comments: Oriented to self Results Data Completed and Pending Labs on day of discharge: Labs from last 24 hours 06/30/25 06/29/25 06/29/25 06:28 19:37 16:30 WBC 12.1 H RBC 3.71 L Hgb 11.0 L Hct 32.7 L MCV 88.1 MCH 29.6 MCHC 33.6 RDW 13.2 Plt Count 331 MPV 9.3 Neut % (Auto) 78.8 Lymph % (Auto) 10.4 [place] % (Auto) 6.0 Eos % (Auto) 2.9 Baso % (Auto) 1.5 Neut # (Auto) 9.5 H Lymph # (Auto) 1.3 [place] # (Auto) 0.7 Eos # (Auto) 0.4 Baso # (Auto) 0.2 PT INR APTT Sodium 137 Potassium 3.3 L Chloride 101 Carbon Dioxide 29 Anion Gap 10.3 BUN Creatinine Estimated Creat Clear Estimated GFR Est GFR ( Amer) Glucose 79 D Calcium 8.6 Magnesium 1.7 1.7 Total Bilirubin < 0.1 L AST 23 ALT 14 Alkaline Phosphatase 136 H Troponin I < 0.01 < 0.01 Total Protein 5.8 L Albumin 3.1 L D Globulin 2.7 Albumin/Globulin Ratio 1.1 Triglycerides Cholesterol LDL Cholesterol Direct VLDL Cholesterol HDL Cholesterol Cholesterol/HDL Ratio Urine Color Urine Appearance Urine pH Ur Specific [place] Urine Protein Urine Glucose (UA) Urine Ketones Urine Blood Urine Nitrate Urine Bilirubin Urine Urobilinogen Ur Leukocyte Esterase Urine RBC Urine WBC Ur Squamous Epith Cells Urine Bacteria Urine Opiates Screen Urine Methadone Screen Ur Barbituates Screen Ur Phencyclidine Scrn Ur Amphetamines Screen U Benzodiazepines Scrn Urine Cocaine Screen U Marijuana (THC) Screen Plasma/Serum Alcohol 06/29/25 06/29/25 06/29/25 13:31 13:20 12:55 WBC 12.7 H RBC 4.05 L Hgb 12.0 L Hct 36.5 L MCV 90.1 MCH 29.6 MCHC 32.9 RDW 13.4 Plt Count 325 MPV 9.2 Neut % (Auto) 79.7 Lymph % (Auto) 9.2 L [place] % (Auto) 5.6 Eos % (Auto) 3.6 Baso % (Auto) 1.3 Neut # (Auto) 10.1 H Lymph # (Auto) 1.2 [place] # (Auto) 0.7 Eos # (Auto) 0.5 H Baso # (Auto) 0.2 PT 11.1 INR 1.00 APTT 26.7 Sodium 137 Potassium 3.7 Chloride 99 Carbon Dioxide 31 H Anion Gap 10.7 BUN 14 Creatinine 0.80 Estimated Creat Clear 52 Estimated GFR 68 Est GFR ( Amer) 82 Glucose 111 H Calcium 9.4 Magnesium Total Bilirubin 0.4 AST 28 ALT 13 Alkaline Phosphatase 142 H Troponin I < 0.01 Total Protein 6.2 L Albumin 3.5 Globulin 2.7 Albumin/Globulin Ratio 1.3 Triglycerides 201 H Cholesterol 136 L LDL Cholesterol Direct 55.80 L VLDL Cholesterol 40 HDL Cholesterol 34 L Cholesterol/HDL Ratio 4.0 H Urine Color Yellow Urine Appearance Clear Urine pH 6.0 Ur Specific [place] 1.015 Urine Protein Negative Urine Glucose (UA) Negative Urine Ketones Negative Urine Blood Negative Urine Nitrate Positive A Urine Bilirubin Negative Urine Urobilinogen 0.2 Ur Leukocyte Esterase 1+ A Urine RBC None Urine WBC 3-5 Ur Squamous Epith Cells 3-5 Urine Bacteria 4+ Urine Opiates Screen Negative Urine Methadone Screen Negative Ur Barbituates Screen Positive H Ur Phencyclidine Scrn Negative Ur Amphetamines Screen Negative U Benzodiazepines Scrn Negative Urine Cocaine Screen Negative U Marijuana (THC) Screen Negative Plasma/Serum Alcohol < 10 Preliminary micro results at discharge 06/29/25 13:20 Urine Culture - Preliminary Urine,Catheterized Gram Negative Rods DS: Diagnosis Discharge Diagnosis (1) Urinary tract infection: Status: Acute Code(s): N39.0 - Urinary tract infection, site not specified Qualifiers: Hematuria presence: without hematuria Urinary tract infection type: site unspecified Qualified Code(s): N39.0 - Urinary tract infection, site not specified (2) Generalized weakness: Status: Acute Code(s): R53.1 - Weakness (3) Falls frequently: Status: Acute Code(s): R29.6 - Repeated falls (4) Hypertension: Status: Chronic Code(s): I10 - Essential (primary) hypertension (5) Hyperlipidemia: Status: Chronic Code(s): E78.5 - Hyperlipidemia, unspecified (6) Dementia: Status: Acute Code(s): F03.90 - Unspecified dementia, unspecified severity, without behavioral disturbance, psychotic disturbance, mood disturbance, and anxiety (7) GERD (gastroesophageal reflux disease): Status: Chronic Code(s): K21.9 - Gastro-esophageal reflux disease without esophagitis Meds Home Medications and Allergies Home Medications ?Medication ?Instructions ?Recorded ?Confirmed ?Type memantine 10 mg tablet (Namenda) 10 mg PO BID #60 tabs 03/04/25 06/29/25 Rx acetaminophen 500 mg tablet 1,000 mg PO Q6HP PRN Pain (Scale 06/29/25 06/30/25 History Score 1-3) aspirin 81 mg chewable tablet 81 mg PO DAILY 06/29/25 06/29/25 History atorvastatin 10 mg tablet 10 mg PO HS 06/29/25 06/29/25 History cetirizine 10 mg tablet 10 mg PO DAILY 06/29/25 06/29/25 History cholecalciferol (vitamin D3) 50 50 mcg PO DAILY 06/29/25 06/29/25 History mcg (2,000 unit) capsule (Vitamin D3) citalopram 10 mg tablet 10 mg PO DAILY 06/29/25 06/29/25 History levalbuterol HCl 1.25 mg/3 mL 1.25 mg inhalation Q8HP PRN 06/29/25 06/30/25 History solution for nebulization Shortness Of Breath losartan 100 mg tablet 100 mg PO DAILY 06/29/25 06/29/25 History mecobalamin (vitamin B12) 1,000 1,000 mcg PO DAILY 06/29/25 06/29/25 History mcg chewable tablet (B12 Active) omeprazole 20 mg capsule,delayed 20 mg PO HS 06/29/25 06/29/25 History release primidone 250 mg tablet 250 mg PO HS 06/29/25 06/29/25 History propranolol 60 mg tablet 60 mg PO BID 06/29/25 06/29/25 History cefdinir 300 mg capsule 300 mg PO BID #10 caps 06/30/25 Rx gabapentin 300 mg capsule 300 mg PO HS 06/30/25 06/30/25 History multivitamin 1 tab PO DAILY 06/30/25 06/30/25 History New Prescriptions to Start Prescriptions: Rhianna Peraza Allergies Allergy/AdvReac Type Severity Reaction Status Date / Time glucosamine Allergy Unknown BOWELS Verified 04/29/25 11:01 BLEEDING Sulfa (Sulfonamide Allergy Unknown Verified 04/29/25 11:01 Antibiotics) donepezil Allergy Verified 04/29/25 11:01 Penicillins Allergy Verified 04/29/25 11:01 sulfamethoxazole AdvReac Verified 04/29/25 11:01 Discharge Plan Disposition Patient Disposition: [facility] Condition: Fair Discharge Order Discharge Orders: Discharge Order (Routine); Ordered 06/30/25 Ordered By: Rhianna Bloom Follow up Plan Prescriptions/Medication Reconciliation: New cefdinir 300 mg capsule 300 mg PO BID Qty: 10 0RF Continued memantine [Namenda] 10 mg tablet 10 mg PO BID Qty: 60 5RF cetirizine 10 mg Tablet 10 mg PO DAILY atorvastatin 10 mg tablet 10 mg PO HS citalopram 10 mg tablet 10 mg PO DAILY acetaminophen 500 mg tablet 1,000 mg PO Q6HP PRN (Reason: Pain (Scale Score 1-3)) Patient Comments: TAKE ONE TABLET BY MOUTH EVERY 6 HOURS NEEDED FOR PAIN omeprazole 20 mg capsule,delayed release(DR/EC) 20 mg PO HS aspirin 81 mg Tablet,Chewable 81 mg PO DAILY cholecalciferol (vitamin D3) [Vitamin D3] 50 mcg (2,000 unit) Capsule 50 mcg PO DAILY mecobalamin (vitamin B12) [B12 Active] 1,000 mcg Tablet,Chewable 1,000 mcg PO DAILY propranolol 60 mg tablet 60 mg PO BID Rx Instructions: TAKE ONE TABLET BY MOUTH TWICE DAILY primidone 250 mg tablet 250 mg PO HS Rx Instructions: TAKE ONE TABLET BY MOUTH EVERY DAY AT BEDTIME levalbuterol HCl 1.25 mg/3 mL solution for nebulization 1.25 mg inhalation Q8HP PRN (Reason: Shortness Of Breath) Rx Instructions: INHALE THE CONTENTS OF 1 VIAL VIA NEBULIZER THREE TIMES DAILY NEEDED FOR ASTHMA losartan 100 mg tablet 100 mg PO DAILY Rx Instructions: TAKE ONE TABLET BY MOUTH EVERY DAY multivitamin Tablet 1 tab PO DAILY gabapentin 300 mg capsule 300 mg PO HS Problem Reconciliation Problems Reviewed?: Yes Patient Discharge Instructions ACTIVITY: Ambulate as tolerated and Up with assistance DIET: continue same diet Patient Instructions: Urinary Tract Infection, DI for Urinary Tract Infection (UTI), DI for Encephalopathy, Stop Light Infection Print Language: Italian Providers Primary Care Provider: Jorge Luis,Dg Admit Provider: Hugo Ferrari Attending Provider: Hugo Ferrari
--- NOTE | 2025-06-30 09:59 | HMH.OTEV ---
OT Evaluation Rehab OT IP Evaluation Start: 06/29/25 16:21 Freq: ONCE Status: Active Protocol: Document 06/30/25 09:51 [facility] (Rec: 06/30/25 09:59 [facility] [id number]) Rehab OT IP Assessment Subjective History Pt oriented x 1 on arrival. Pt agreeable to engage in therapy evaluation. Pt admitted on 06/29/25 due to weakness and UTI. History and physical: Ms. Hua is a 85-year-old female who presented to the emergency department today via EMS with stroke-like symptoms. Patient does have a primary medical history of TIAs, frequent falls, dementia, Alzheimer's, vertebral fractures, osteoarthritis, DJD, hypertension, hyperlipidemia, GERD. Patient resides at [facility] and rehab where facility workers felt that she had a sudden change in her mentation. They stated she became limp, weak, and suddenly altered around 12:30 PM . EMS was called and she was brought to the emergency department for further assessment. Patient arousable to name but appears weak and somnolent. Daughter at bedside answers the majority of questions. Patient recently had a fall approximately 2 months ago and was placed in the intermediate at that time. She has not been able to ambulate since that time due to her back injury. The emergency department workup was negative for obvious stroke. Head CT, neck CT both showed no acute findings. Chest x-ray showed bilateral bibasilar atelectasis. Patient's daughter at bedside states that she recently did have pneumonia and took a week course of Levaquin daily. Urinalysis was significant for urinary tract infection with positive nitrites and leuk esterase. Patient received Rocephin 2 g IV in the emergency department. Subjective Pt only oriented to self. Pt demonstrated increased confusion during therapy evaluation. Prior to being in the hospital, pt was along term resident at intermediate. Therapist unsure of prior level of functioning. According to history report she had a fall ~2 months ago and has not been able to ambulate since then. Pt required mod/max assist x 2 to complete bed mobility and go from supine to sitting at eob. Mod assist provided to maintain static sitting balance at eob for ~3 minutes. Therapist instructed patient on sit to stand from eob with max assist x 2. Max assist to go from sitting to supine in bed. Objective Patient Orientation Person Right Upper Min Limitation <25% Extremity Gross ROM Left Upper Extremity Min Limitation <25% Gross ROM Shoulder ROM Muscle Weakness Limitations Elbow ROM Muscle Weakness Limitations Wrist Limitations of Muscle Weakness Range of Motion Bed Mobility bed mobility-scooting,bed mobility - supine/sit Assist Level Maximum x 2 (75% assist) Rehab OT IP prob,goals,plan Problems Date of Evaluation: 06/30/25 OT IP Problems Bed Mobility,Transfers,Balance,Self care,Safety Rehab Potential Rehab Potential Fair Equipment Needs Assistive Devices Rolling / Wheeled Walker Plan OT intervention Plan Bed Mobility,Transfers,Balance,Self care,Safety, Therapeutic Exercise OT Plan Frequency Daily Duration LOS Discharge Goals Bed Mobility Ability Assistance x1 Sit to Stand Chair Moderate x 1 (50% assist) Transfer Ability Chair Transfer Moderate x 1 (50% assist) Ability Chair Transfer Stand Pivot Technique Chair Transfer Rolling Walker Assistive Devices Lower Body Dressing Maximum Assistance Ability Upper Body Dressing Minimal Assistance Ability Performing Toilet Maximum Assistance Hygiene Ability Overall Commode/ Moderate Assistance,Maximum Assistance Toilet Transfer Ability Commode/Toilet Stand Pivot Transfer Technique Discharge Plan OT Discharge Plan Pt will continue to be seen for OT services while at [facility]. 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 Continued skilled therapy is important in order for patient to improve strength, safety, endurance, ADL independence, and functional transfers to reach [facility]. Eval Complexity Eval Charge Codes 58716 - Moderate Complexity PHYSICIAN CERTIFICATION: I certify the specified therapy services for Kelley Hua are required, authorized, and reviewed every 30 days.
--- NOTE | 2025-06-30 10:26 | HMH.PTEV ---
Physical Therapy Evaluation Rehab PT IP Evaluation Start: 06/29/25 16:31 Freq: ONCE Status: Active Protocol: Document 06/30/25 10:20 JACKI (Rec: 06/30/25 10:25 JACKI [id number]) Subjective/History History History Per H&P: Ms. Hua is a 85-year-old female who presented to the emergency department today via EMS with stroke-like symptoms. Patient does have a primary medical history of TIAs, frequent falls, dementia, Alzheimer's, vertebral fractures, osteoarthritis, DJD, hypertension, hyperlipidemia, GERD. Patient resides at [facility] where facility workers felt that she had a sudden change in her mentation. They stated she became limp, weak, and suddenly altered around 12:30 PM. EMS was called and she was brought to the emergency department for further assessment. Patient arousable to name but appears weak and somnolent. Daughter at bedside answers the majority of questions. Patient recently had a fall approximately 2 months ago and was placed in the long term at that time. She has not been able to ambulate since that time due to her back injury. The emergency department workup was negative for obvious stroke. Head CT, neck CT both showed no acute findings. Chest x-ray showed bilateral bibasilar atelectasis. Patient's daughter at bedside states that she recently did have pneumonia and took a week course of Levaquin daily. Urinalysis was significant for urinary tract infection with positive nitrites and leuk esterase. Patient received Rocephin 2 g IV in the emergency department. Subjective Subjective Pt is a questionable historian. Pt not able to state history. New diagnosis of No cancer in past 12 months? [facility] How much help from another person do you currently need... Turning from your A lot back to your side while in a flat bed without using bedrails? Moving from lying on A lot back to sitting on the side of a flat bed without using bedrails? Moving to and from a A lot bed to a chair ( including a wheelchair)? Standing up from a A lot chair using your arms? (e.g., wheelchair, bedside chair) Walking in hospital Total room? Climbing 3-5 steps Total with a railing? Mobility Score 10 Mobility Level Kirby Maria Mobility 4 Move to chair/commode Mobility Calculator Rehab PT IP Eval Objective Appearance Patient Behavior Confused Difficulty following moderate instructions Ambulation Patient Able to No Ambulate Balance Ability to Arise Unable Transfers Bed Transfer Ability Moderate x 2 (50% assist) Rehab PT IP prob,goals,plan Problems Date of Evaluation: 06/30/25 PT IP Problems Bed Mobility,Transfers,Gait,Balance,Self care,Safety Rehab Potential Rehab Potential Good Plan PT Intervention Plan Bed Mobility,Transfers,Gait,Balance,Self care,Safety, Therapeutic Exercise Other Intervention 1-2 times Plan PT Plan Frequency Daily Duration LOS Discharge Goals Bed Transfer Ability Moderate x 1 (50% assist) Sit to Stand Chair Maximum x 2 (75% assist) Transfer Ability Discharge Plan PT Discharge Plan PT not sure what pt's baseline mobility is d/t pt's inability to report hx. Pt would benefit from skilled inpatient PT upon d/c d/t global weakness and impaired functional mobility. Pt would benefit from skilled acute care PT to address deficits and prevent further functional decline. Eval Complexity Eval Charge Codes 54122 - Moderate Complexity PHYSICIAN CERTIFICATION: I certify the specified therapy services for Kelley Hua are required, authorized, and reviewed every 30 days.
[2025-06-30 11:59] LABS: Blood Urea Nitrogen 14 mg/dl (7-17); Creatinine Clearance Estimated 43 mL/min (50-200); Creatinine,Serum 0.80 mg/dl (0.52-1.04); Estimated Glomerular Filt Rate 68 ml/min (>60); GFR (African American) 82 ML/MIN (>60)
[2025-06-30 12:00] VITALS: BP 158/75; PULSE 100; PULSE 103; RESP 16; TEMP 36.6; O2SAT 95
[2025-06-30] MEDS: POTASSIUM CHLORIDE 20MEQ TAB 40 MEQ PO (14:04)
[2025-06-30] MEDS: PROPRANOLOL 20MG TAB 60 MG PO (14:04)
--- NOTE | 2025-07-03 09:08 | PC.NURSE ---
pts final urine culture forwarded to the hospitalist as she was admitted.
== END 2025-06-30 16:11 ==
LOC: ER 13:24 → 2ND 15:33
PROVIDERS: Admitting Provider Student in an Organized Health Care Education/Training Program; Emergency Provider Student in an Organized Health Care Education/Training Program; PCP Internal Medicine; Visit Provider Student in an Organized Health Care Education/Training Program
DX: N39.0 Urinary tract infection, site not specified (principal); G93.40 Encephalopathy, unspecified; I10 Essential (primary) hypertension; E78.5 Hyperlipidemia, unspecified; K21.9 Gastro-esophageal reflux disease without esophagitis; G30.9 Alzheimer's disease, unspecified; F02.80 Dementia in other diseases classified elsewhere, unspecified severity, without behavioral disturbance, psychotic disturbance, mood disturbance, and anxiety; J98.11 Atelectasis; R29.6 Repeated falls; Z88.8 Allergy status to other drugs, medicaments and biological substances; Z88.0 Allergy status to penicillin; Z88.2 Allergy status to sulfonamides; Z86.73 Personal history of transient ischemic attack (TIA), and cerebral infarction without residual deficits; Z79.899 Other long term (current) drug therapy
CPT/HCPCS: 36415; 70450; 70496; 70498; 71045; 80053; 80061; 80307; 80320; 81001; 83735; 84484; 85025; 85610; 85730; 87040; 87086; 87088; 87186; 93005; 96365; 96372; 96376; 97162; 97166; 99285; G0378; J0696; J1650; Q9967

== ENCOUNTER 2025-08-12 10:11 | Emergency (ER) | payer MEDICARE, MEDICAID, SELFPAY ==
[2025-08-12 10:10] VITALS: BP 136/77; PULSE 73; RESP 20; TEMP 36.5; O2SAT 94; BMI 31.8
--- NOTE | 2025-08-12 10:19 | CT_ITS ---
FINAL REPORT TECHNIQUE: multiple axial CT images were performed from the foramen magnum to the vertex without enhancement. CLINICAL HISTORY: fall, head trauma COMPARISON: 06/29/2025 FINDINGS: The ventricles are enlarged. There is [id number] diffuse atrophy. Patchy decreased attenuation in the deep white matter is noted. There is no evidence of hemorrhage. No masses are identified. No extra-axial fluid is seen. The paranasal sinuses are well aerated. IMPRESSION: Atrophy and chronic changes without acute process. Reviewed, Interpreted and Dictated by Gerardo Kim MD Transcribed by Stefany Magana Authenticated and [facility]
--- NOTE | 2025-08-12 10:19 | XR_ITS ---
FINAL REPORT TECHNIQUE: Portable chest CLINICAL HISTORY: Fall COMPARISON: 06/29/2025 FINDINGS: A portable view of the chest was obtained. Cardiac and mediastinal silhouettes are within normal limits. The lungs are clear. There is no pleural effusion or pneumothorax. Moderate hypertrophic changes are noted involving the left shoulder. IMPRESSION: No acute process on this portable exam. Reviewed, Interpreted and Dictated by Gerardo Kim MD Transcribed by Corina Isbell Authenticated and [facility]
--- NOTE | 2025-08-12 10:19 | CT_ITS ---
FINAL REPORT TECHNIQUE: Axial images were obtained of the lumbar spine by computed tomography. Coronal and sagittal reconstruction process performed. This study was performed with techniques to keep radiation doses as low as reasonably achievable (ALARA). Individualized dose reduction techniques using automated exposure control or adjustment of mA and/or kV according to the patient's size were employed. CLINICAL HISTORY: Fall COMPARISON: 05/10/2025 FINDINGS: CT LUMBAR SPINE: There has been prior posterior fusion of the lumbar spine from L1 through the S1 level, also seen on the prior exam of 05/10/2025. There is diffuse significant degenerative change in the lumbar spine, with vacuum phenomenon present at the T12-L1 and L5-S1 levels. T12-L1: Endplate hypertrophy is present, with mild bilateral neural foraminal narrowing. L1-L2: No evidence of significant canal stenosis or neural foraminal narrowing. L2-L3: There is mild endplate hypertrophy with mild bilateral neural foraminal narrowing. L3-L4: There is endplate hypertrophy eccentric to the right, with mild to moderate right neural foraminal narrowing. There is asymmetric facet hypertrophy, greater on the right, at this level as well. L4-5: No evidence of significant canal stenosis or neuroforaminal narrowing. L5-S1: Endplate hypertrophy eccentric to the left, with moderate to severe left and moderate right neural foraminal narrowing. IMPRESSION: Prior posterior fusion from L1-S1, also seen on the prior exam. Multilevel degenerative change, stable since the prior exam of 05/10/2025. No acute osseous abnormality is identified. Reviewed, Interpreted and Dictated by Gerardo Kim MD Transcribed by Corina Isbell Authenticated and [facility]
--- NOTE | 2025-08-12 10:19 | CT_ITS ---
FINAL REPORT TECHNIQUE: Axial images were obtained of the thoracic spine by computed tomography. Coronal and sagittal reconstruction process performed. This study was performed with techniques to keep radiation doses as low as reasonably achievable (ALARA). Individualized dose reduction techniques using automated exposure control or adjustment of mA and/or kV according to the patient's size were employed. CLINICAL HISTORY: Fall history of T spine fx COMPARISON: 05/10/2025 FINDINGS: CT THORACIC SPINE: The thoracic vertebral bodies are normally aligned, and stable since the prior exam of 05/10/2025. There is diffuse thoracic disc space narrowing with multilevel vacuum phenomenon and osteophytes, also stable since the prior exam. There is a large posterior osteophyte at the T10-11 level, which produces moderate canal stenosis and moderate to severe bilateral neural foraminal narrowing, stable. There is an oblique lucency in the anterior inferior endplate of T11, which appears to represent a chronic fracture, which is also stable since the prior exam. No acute osseous abnormality is identified. IMPRESSION: Marked multilevel degenerative changes present in the thoracic spine. No acute osseous abnormality is identified, and the examination is stable when compared to the prior exam of 05/10/2025. Reviewed, Interpreted and Dictated by Gerardo Kim MD Transcribed by Corina Isbell Authenticated and [facility]
--- NOTE | 2025-08-12 10:19 | XR_ITS ---
FINAL REPORT TECHNIQUE: Left shoulder 3 views CLINICAL HISTORY: Fall COMPARISON: None FINDINGS: LEFT SHOULDER: 3 images of the left shoulder were obtained. There is no evidence of fracture or dislocation. There are moderate hypertrophic changes of the glenohumeral joint. There is subchondral sclerosis in both the bony glenoid and the proximal humerus. There is no soft tissue abnormality identified. IMPRESSION: Moderately advanced changes of osteoarthritis, with no acute bony abnormality. Reviewed, Interpreted and Dictated by Gerardo Kim MD Transcribed by Corina Isbell Authenticated and [facility]
--- NOTE | 2025-08-12 10:19 | XR_ITS ---
FINAL REPORT TECHNIQUE: Single AP view of the pelvis CLINICAL HISTORY: Fall COMPARISON: None FINDINGS: PELVIS: A single AP view of the pelvis demonstrates lumbosacral fusion. There is mild joint space narrowing of the hips bilaterally. No fracture or dislocation is identified. IMPRESSION: Mild degenerative changes without acute osseous abnormality. Reviewed, Interpreted and Dictated by Gerardo Kim MD Transcribed by Corina Isbell Authenticated and [facility]
--- NOTE | 2025-08-12 10:19 | CT_ITS ---
FINAL REPORT TECHNIQUE: Axial images were obtained of the cervical spine by computed tomography. Coronal and sagittal reconstruction process performed. This study was performed with techniques to keep radiation doses as low as reasonably achievable (ALARA). Individualized dose reduction techniques using automated exposure control or adjustment of mA and/or kV according to the patient''s size were employed. CLINICAL HISTORY: Fall COMPARISON: 05/11/2025 FINDINGS: There is moderate disc space narrowing at C5-6 and C6-7. The vertebra are normal in height. There is no malalignment. Facets are properly aligned. Endplate hypertrophy is noted at C3-4, C5-6, and C6-7. Neural foraminal compromise is particularly evident on the right at C5-6 and on the left at C6-7. No acute fracture identified. IMPRESSION: No fracture. Degenerative/chronic changes as above. Reviewed, Interpreted and Dictated by Gerardo Kim MD Transcribed by Stefany Magana Authenticated and [facility]
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
--- NOTE | 2025-08-12 10:20 | XR_ITS ---
FINAL REPORT TECHNIQUE: Left humerus 2 views CLINICAL HISTORY: Fall COMPARISON: None FINDINGS: LEFT HUMERUS: Two images of the left humerus were obtained. There is no evidence of fracture or dislocation. Moderate hypertrophic changes are present at the glenohumeral joint. There is no soft tissue abnormality identified. IMPRESSION: Moderately advanced osteoarthritic change of the shoulder joint, with no acute bony abnormality. Reviewed, Interpreted and Dictated by Gerardo Kim MD Transcribed by Corina Isbell Authenticated and [facility]
--- NOTE | 2025-08-12 10:25 | ECG_ITS ---
APPROVED REPORT Exam: Resting ECG HR:73 bpm ECG Measurements Heart Rate 73 AXES WY 150 P 75 QRSd 100 QRS -13 QT 406 T 53 QTc 431 Conclusion SINUS RHYTHM LOW QRS VOLTAGE IN PRECORDIAL LEADS [QRS DEFLECTION < 1.0 mV IN CHEST LEADS] MODERATE ST DEPRESSION [0.05+ mV ST DEPRESSION] ABNORMAL ECG UNCONFIRMED REPORT Normal sinus rhythm. No ST elevation or depression. QTc 431 Electronically signed by : ANTONIO ALFARO, 08/12/2025 14:23:45
[2025-08-12 10:26] LABS: Chloride 101 mmol/L (98-107)
[2025-08-12 10:27] LABS: Albumin Level 3.1 g/dl (3.5-5.0); Potassium 3.1 mmoL/L (3.5-5.1); Sodium 140 mmol/L (136-145)
[2025-08-12 10:29] LABS: Blood Urea Nitrogen 14 mg/dl (7-17); Creatinine Clearance Estimated 52 mL/min (50-200); Creatinine,Serum 0.70 mg/dl (0.52-1.04); Estimated Glomerular Filt Rate 79 ml/min (>60); GFR (African American) 96 ML/MIN (>60)
[2025-08-12 10:30] LABS: Alanine Aminotransferase 30 U/L (12-78); Albumin/Globulin Ratio 1.0 (1.1-1.8); Alkaline Phosphatase 149 U/L (38-126); Anion Gap 13.1 mEq/L (5-15); Aspartate Amino Transferase 34 U/L (14-36); Bilirubin,Total 0.2 mg/dl (0.2-1.3); Calcium 9.2 mg/dl (8.4-10.2); Carbon Dioxide 29 mmol/L (22.0-30.0); Globulin 3.1 g/dL (1.3-3.2); Glucose 155 mg/dl (74-100); Total Protein,Serum 6.2 g/dl (6.3-8.2)
[2025-08-12 10:31] VITALS: O2SAT 94
[2025-08-12 10:33] LABS: Hematocrit 31.1 % (37.0-47.0); Hemoglobin 9.7 g/dL (12.2-16.2); Immature Granulocytes % 0.3 %; Mean Corpuscular HGB Conc 31.2 g/dL (31.8-35.4); Mean Corpuscular Hemoglobin 27.9 pg (27.0-31.2); Mean Corpuscular Volume 89.4 fl (81-99); Nucleated Red Blood Cells % 0 %; Platelet Count 361 K/mm3 (142-424); Red Blood Count 3.48 M/mm3 (4.20-5.40); Red Cell Distribution Width-SD 46.0 fL; White Blood Count 10.5 K/mm3 (4.8-10.8)
[2025-08-12 11:03] VITALS: BP 153/75; PULSE 78; O2SAT 96
[2025-08-12] MEDS: POTASSIUM CHLORIDE 20MEQ TAB 60 MEQ PO (11:06)
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
--- OUTSIDE RECORDS SUMMARY | 2025-08-12 11:07 | XMS_ITS | Patient Health Record ---
Author Organization [facility] Address [address] [facility] [place] [address] Care Team Providers Care Ticket Taker [place] Name Role Phone MARLEE MEDINA Primary Care Provider [phone] [id number] Jorge Luis Cote, Dg Unavailable Unavailable Reason For Referral No Information Plan Of Treatment No Information Insurance Providers Payer Name Payer Address Payer Phone Subscriber Number Group Number Insured Name Patient Relationship to Insured Coverage Start Date Coverage End Date [employer] [address] [address] [place] [address] [id number] Kelley Hamm Self - patient is the insured
[2025-08-12 11:30] VITALS: BP 145/76; PULSE 73; O2SAT 97
--- NOTE | 2025-08-12 12:31 | PC.NURSE ---
[facility] NOTIFIED
[2025-08-12 12:33] VITALS: BP 153/79; PULSE 82; RESP 20; TEMP 36.8; O2SAT 98
== END 2025-08-12 12:53 | disposition home or self-care (01) ==
PROVIDERS: Physician Assistant; Emergency Provider Student in an Organized Health Care Education/Training Program; PCP Internal Medicine
DX: S00.03XA Contusion of scalp, initial encounter (principal); M79.622 Pain in left upper arm; E87.6 Hypokalemia; G30.9 Alzheimer's disease, unspecified; F02.80 Dementia in other diseases classified elsewhere, unspecified severity, without behavioral disturbance, psychotic disturbance, mood disturbance, and anxiety; W05.0XXA Fall from non-moving wheelchair, initial encounter
CPT/HCPCS: 70450; 71045; 72125; 72128; 72131; 72170; 73030; 73060; 80053; 85025; 93005; 99285